=== PATIENT | female | born 1945 | race Caucasian/White ===

== ENCOUNTER 2016-04-16 11:09 | Observation (INO) | payer OTHER ==
[~2016-04-16] VITALS: Ht 157.5 cm; Wt 71.6 kg
[~2016-04-16 11:09] MED LIST: AMOX500C3 PO; ASPCH81X PO; CHOL100010 PO; DOFE125C PO; FURO-85 PO; LPR25 PO; LPT/20 PO; MNC100 PO; NTRGSL/4 PO; SERT50TA PO; WARF4TAB44 PO
[2016-04-16 12:02] LABS: HEMATOCRIT 43.7 % (37-47); MEAN CELL VOLUME 82.9 fL (80-100); MEAN CORPUSCULAR HEMOGLOBIN 28.3 pg (25-34); MEAN CORPUSCULAR HGB CONC 34.1 g/dl (32-36); MEAN PLATELET VOLUME 11.4 fL (7.4-10.4); PLATELET COUNT 356 K/uL (130-400); RED BLOOD COUNT 5.27 M/uL (4.2-5.4); WHITE BLOOD COUNT 9.59 K/uL (4.8-10.8)
[2016-04-16 12:09] LABS: ALT/SGPT 39 U/L (12-78); AST/SGOT 47 U/L (15-37); BLOOD UREA NITROGEN 9 mg/dl (7-18); CALCIUM 9.9 mg/dl (8.5-10.1); CARBON DIOXIDE 20 mmol/L (21-32); CHLORIDE 110 mmol/L (98-107); GLUCOSE 120 mg/dl (70-99); POTASSIUM 3.8 mmol/L (3.5-5.1); SODIUM 143 mmol/L (136-145)
[2016-04-16 12:13] LABS: ALB/GLOB RATIO 0.9 (0.9-2); ALKALINE PHOSPHATASE 102 U/L (45-117)
--- NOTE | 2016-04-16 12:23 | DIAGNOSTIC IMAGING REPORT ---
SINGLE VIEW CHEST CLINICAL HISTORY: Atypical chest pain. FINDINGS: An AP, portable, upright chest radiograph is compared to study dated 11/19/2015. The examination is degraded by portable technique, large body habitus, and patient rotation. The patient is status post midline sternotomy and cardiac valve surgeries. The heart is enlarged and there is atherosclerotic calcification of the thoracic and. Mild pulmonary vessel congestion is observed. No large pleural effusion is identified. There is bibasilar atelectasis. No pneumothorax is seen. The skeletal structures are osteopenic. The bony thorax is grossly intact. IMPRESSION: 1. Cardiomegaly with mild pulmonary vascular congestion. 2. Bibasilar atelectasis with no focal airspace consolidation or large pleural effusion identified. Electronically signed by: Madhu Norwood M.D. 04/16/2016 12:22 PM Dictated Date/Time: 04/16/2016 12:20 PM
[2016-04-16 12:30] LABS: PARTIAL THROMBOPLASTIN RATIO 2.1; PROTHROMBIN TIME (PATIENT) 48.1 SECONDS (9.0-12.0)
[2016-04-16] MEDS ORDERED: NITROGLYCERIN OINT 2% 1GM PACKET EXT ONE (12:30)
[2016-04-16 13:02] LABS: THYROID STIMULATING HORMONE 3.92 uIu/ml (0.300-4.500)
[2016-04-16 13:39] LABS: INR 4.2 (0.9-1.1)
[2016-04-16 13:55] VITALS: O2SAT 98; Ht 157.5 cm; Wt 71.6 kg
[2016-04-16] MEDS ORDERED: MULT-190 PO (13:56)
[2016-04-16] MEDS ORDERED: WARF1TAB PO (13:56)
[2016-04-16] MEDS ORDERED: ENOXAPARIN 40 MG/0.4 ML SYR SC SCH (14:00)
[2016-04-16] MEDS ORDERED: NITROGLYCERIN 0.4 MG SL PER TAB CHARGE SL PRN (14:00)
[2016-04-16] MEDS ORDERED: ONDANSETRON INJ 2 MG/ML 2 ML VIAL IV PRN (14:00)
[2016-04-16 14:11] VITALS: O2SAT 96
--- NOTE | 2016-04-16 14:35 | History and Physical ---
History & Physical Date & Time of Service: Apr 16, 2016 at 14:03 Chief Complaint: Heart Problems-Fast Pulse Primary Care Physician: Dillon Almeida D.O. History of Present Illness Source: patient This is a 70 y/o female with PMHx of PAF on Coumadin, h/o AVR and MVR, CAD s/p CABG, HTN, Dyslipidemia and other problems as outlined below who presents to the ED c/p palpitations that began yesterday. Pt reports that yesterday morning she woke up with palpitations. She checked her pulse which was noted to be irregular in the 130s. Sxs were assoc with chest "pressure" that radiated to the R shoulder. She also experienced SOB and lightheadedness/dizziness. Pt took a nitro for her chest "pressure" which relieved the discomfort. By the afternoon her sxs seemed to have resolved. This morning pt woke up with similar sxs however the heart rated was noted to be in the 170s and patient felt so dizzy she thought she might pass out. Due to her worsening sxs, patient decided to go to the ED for further evaluation. Pt has a history of PAF on Coumadin and states that she has an episode every 5-6 months. Last episode was November 2015. She also has a h/o CAD s/p CABG x 3 with concurrent AVR and MVR in 2002. She also mentions intermittent diarrhea over the past 3 weeks. She estimates she has approximately 5 episodes daily. She has been trying to follow the BRAT diet. Pt denies fever/chills, diaphoresis, abd pain, N/V, hematochezia, melena, bladder issues, LE edema, calf pain. In the ED, vitals are stable. Trop negative and EKG NSR with no acute ischemic changes. INR 4.2. Pt is currently feeling comfortable and has no complaints. She will be admitted for further evaluation and treatment. 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 Status: Chronic (9) Rheumatic heart disease Status: Resolved Surgical Problems: (1) H/O esophagogastroduodenoscopy Status: Chronic (2) Hx of appendectomy Status: Chronic (3) S/P AVR (aortic valve replacement) Permanent Comment: Mechanical 2002 Status: Chronic (4) S/P CABG (coronary artery bypass graft) Status: Chronic (5) S/P cholecystectomy Status: Chronic (6) S/P MVR (mitral valve replacement) Permanent Comment: Mechanical 2002 Status: Chronic (7) S/P NELLY (total abdominal hysterectomy) Status: Chronic Family History FH: cancer MOTHER (colon CA) Social History Smoking Status: Never Smoker Alcohol Use: none Drug Use: none Marital Status: Housing status: lives with significant other Occupational Status: retired Immunizations History of Influenza Vaccine: N/A Influenza Vaccine Date: Feb 19, 2012 History of Tetanus Vaccine?: UTD History of Pneumococcal: Yes Pneumococcal Date: Jan 19, 2011 History of Hepatitis B Vaccine: Unknown Allergies Coded Allergies: Latex (Verified Allergy, Severe, wheezing, 04/16/16) Levothyroxine (Unverified Allergy, Intermediate, TACHYCARDIA, 04/16/16) Sulfa Antibiotics (Verified Allergy, Intermediate, Rash, hives, 04/16/16) Home Medications Scheduled Aspirin (Aspirin Chewable), 81 MG PO DAILY Atorvastatin (Atorvastatin Calcium), 20 MG PO BID Dofetilide (Tikosyn), 125 MCG PO BID Furosemide (Lasix), 20 MG PO Q2D Metoprolol Tartrate (Lopressor), 25 MG PO DAILY Metoprolol Tartrate (Lopressor), 12.5 MG PO QPM Nitroglycerin (Nitrostat), 1 TAB PO DIRECTED Ocuvite Preservision (Ocuvite Preservision), 1 TAB PO DAILY Sertraline (Zoloft), 50 MG PO DAILY Warfarin Sodium (Coumadin), 3 MG PO 3XWK Scheduled PRN Amoxicillin (Amoxil), 500 MG PO UD PRN for PRIOR TO DENTAL APPTS Review of Systems Constitutional: No chills, No fatigue, No fever, No sweats, No weakness Eyes: No worsening of vision ENT: No hearing loss Respiratory: + shortness of breath, No cough Cardiovascular: + chest pain, + palpitations, No claudication, No edema Abdomen: + diarrhea, No GI bleeding, No constipation, No nausea, No pain, No vomiting Musculoskeletal: No calf pain, No swelling Genitourinary - Female: No dysuria Neurologic: No weakness Psychiatric: No depression symptoms Endocrine: No fatigue Hematologic / Lymphatic: No abnormal bleeding/bruising Integumentary: No new/changing skin lesions Physical Exam Vital Signs Date Time Temp Pulse Resp B/P Pulse Ox O2 Delivery O2 Flow Rate FiO2 04/16/16 12:23 78 18 128/79 98 Room Air 04/16/16 12:17 78 04/16/16 12:12 97 Room Air 04/16/16 12:08 97 Room Air 04/16/16 11:15 36.5 88 18 123/76 97 Room Air General Appearance: WD/WN, no apparent distress, + pertinent finding (Pt is sitting up in bed with at bedside ) Head: normocephalic, atraumatic Eyes: normal inspection ENT: hearing grossly normal Neck: supple Respiratory/Chest: chest non-tender, lungs clear, normal breath sounds, no respiratory distress Cardiovascular: regular rate, rhythm, no edema, no murmur Abdomen/GI: normal bowel sounds, non tender, soft Back: normal inspection Extremities/Musculoskelatal: normal inspection, no calf tenderness, no pedal edema Neurologic/Psych: alert, normal mood/affect, oriented x 3 Skin: normal color, warm/dry Diagnostics Laboratory Results Results Past 24 Hours Test 04/16/16 11:25 04/16/16 12:05 04/16/16 13:53 Range/Units White Blood Count 9.59 4.8-10.8 K/uL Red Blood Count 5.27 4.2-5.4 M/uL Hemoglobin 14.9 12.0-16.0 g/dL Hematocrit 43.7 37-47 % Mean Corpuscular Volume 82.9 80-100 fL Mean Corpuscular Hemoglobin 28.3 25-34 pg Mean Corpuscular Hemoglobin Concent 34.1 32-36 g/dl RDW Standard Deviation 47.7 36.4-46.3 fL RDW Coefficient of Variation 15.8 11.5-14.5 % Platelet Count 356 130-400 K/uL Mean Platelet Volume 11.4 7.4-10.4 fL Prothrombin Time 48.1 9.0-12.0 SECONDS Prothromb Time International Ratio 4.2 0.9-1.1 Activated Partial Thromboplast Time 55.8 21.0-31.0 SECONDS Partial Thromboplastin Ratio 2.1 Sodium Level 143 136-145 mmol/L Potassium Level 3.8 3.5-5.1 mmol/L Chloride Level 110 98-107 mmol/L Carbon Dioxide Level 20 21-32 mmol/L Anion Gap 13.0 3-11 mmol/L Blood Urea Nitrogen 9 7-18 mg/dl Creatinine 0.90 0.60-1.20 mg/dl Est Creatinine Clear Calc Drug Dose 55.3 ml/min Estimated GFR () 75.1 Estimated GFR (Non- 64.8 BUN/Creatinine Ratio 10.0 10-20 Random Glucose 120 70-99 mg/dl Calcium Level 9.9 8.5-10.1 mg/dl Magnesium Level 2.0 1.8-2.4 mg/dl Total Bilirubin 0.8 0.2-1 mg/dl Aspartate Amino Transf (AST/SGOT) 47 15-37 U/L Alanine Aminotransferase (ALT/SGPT) 39 12-78 U/L Alkaline Phosphatase 102 45-117 U/L Total Creatine Kinase 46 26-192 U/L Creatine Kinase MB < 0.5 0.5-3.6 ng/ml Creatine Kinase MB Ratio 0-3.0 Total Protein 8.9 6.4-8.2 gm/dl Albumin 4.1 3.4-5.0 gm/dl Globulin 4.8 2.5-4.0 gm/dl Albumin/Globulin Ratio 0.9 0.9-2 Thyroid Stimulating Hormone (TSH) 3.920 0.300-4.500 uIu/ml Free Thyroxine 1.25 0.80-1.60 ng/dl Bedside Troponin I 0.040 0-0.045 ng/ml Diagnostic Radiology CXR IMPRESSION: 1. Cardiomegaly with mild pulmonary vascular congestion. 2. Bibasilar atelectasis with no focal airspace consolidation or large pleural effusion identified. EKG EKG: NSR at [address] abnormality in inferior leads and Q wave sin V1-V3; no change when compared to KEG from 11/21/15 Impression Assessment and Plan CHEST PAIN R/O ACS pt presented with chest "pressure" assoc with palpitations and SOB; h/o CAD s/p CABG x 3 in 2002 -observation status to telemetry -likely secondary to demand ischemia from probable episode of AF with RVR this morning -RFs include CAD s/p CABG, HTN, Dyslipidemia -EKG NSR with no acute ischemic changes; repeat EKG PRN chest pain and in AM -Initial troponin 0.04; continue to monitor with serial cardiac enzymes q6h -obtain echo to r/o cardiac wall motion abnormalities -cont ASA, BB and statin -consult cardiology, Dr. Nath-pending input -pt is currently chest pain free -continue to monitor PALPITATIONS: RESOLVED; H/O PAF ON COUMADIN -likely episode of Afib with RVR; may have been caused by dehydration with recent h/o diarrhea; converted prior to arrival to ED -EKG: NSR -cont metoprolol and Tikosyn -holding Coumadin due to elevated INR; will continue to monitor -pt follows with cardiologyPritesh SUPRATHERAPEUTIC INR -INR 4.2 (goal 2.5-3.5) -hold Coumadin for now -monitor INR daily DIARRHEA -pt reports intermittent diarrhea for 3 weeks -obtain stool cx and C.diff -start gentle IVF -clear liquid diet H/O RHEUMATIC FEVER/AVR/MVR -goal INR 2.5-3.5; INR currently 4.2 -holding Coumadin for now due to supratherapeutic INR HTN -BP stable -cont metoprolol -monitor DYSLIPIDEMIA -cont statin H/O BROWNE CIRRHOSIS -follows with GI in [place] -LFTs WNL DVT PROPHYLAXIS -INR supratherapeutic; plan is to continue Coumadin once therapeutic CODE STATUS -FULL CODE per discussion with patient upon admission DISPO Observation status until further workup is complete. Pt seen in collaboration with Dr. Luna. Please see his addendum for further details. Thanks! Agree with above H and P. Briefly 70F presents with palpitations yesterday morning and today morning. She felt heart pounding when these episodes happened and says her heart rate was in 170's. Currently in sinus rhythm. Says she felt chest pressure, sob and dizzy when it happened. Also having watery diarrhea since 3 weeks 5-6 episodes every day.Afebrile.Currently resting comfortably and hemodynamically stable. p/e Ge not in distress Cvs s1 and s2 heard no murmurs Rs cta b/l no wheezing Abd soft bs present non tender n o distension Fluid Designer non focal Ext no erythema a/p Rapid afib currently in sinus continue home meds Coumadin on hold for inr 4.2 monitor in tele cardiology consulted chest pain mostly from above 'f/u serial CE and echo. diarrhea going on for few weeks' check c diff and cultures gentle fluids VTE Prophylaxis VTE Risk Assessment Done? Y/N: Yes Risk Level: Moderate
[2016-04-16] MEDS ORDERED: IV FLUIDS COMPLETED PRN (14:45)
[2016-04-16 16:07] VITALS: BP 147/83; PULSE 105; TEMP 36.6; O2SAT 95
[2016-04-16] MEDS: SODIUM CHLORIDE 0.9% 1000ML 1,000 ML IV SCH (16:30)
--- NOTE | 2016-04-16 19:18 | EMERGENCY ROOM VISIT NOTE ---
History Report prepared by Jolie: Nelli Bartlett Under the Supervision of: Dr. Tayo Jacobs M.D. First contact with patient: 12:13 Chief Complaint: TACHYCARDIA Stated Complaint: HEART PROBLEMS-FAST PULSE History of Present Illness The patient is a 70 year old female who presents to the Emergency Room with complaints of persistent tachycardia that started yesterday. The patient checked her heart rate electronically yesterday which was 138. 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 She states her blood pressure was 109/60 when she last checked it. Associated symptoms include right sided chest pain, light headedness , and shortness of breath. She also mentions that she has been experiencing diarrhea for the past week. She rates the discomfort in her chest a 6/10 in severity. The patient states that she took Nitroglycerin yesterday which offered relief of her chest pain. The patient takes Coumadin regularly. She denies hematochezia. Source of History: patient Onset: Yesterday Position: other (Cardiovascular System ) Symptom Intensity: heart rate in the 170s Quality: other (tachycardia) Timing: other (Persistent ) Modifying Factors (Worsening): other (None) Associated Symptoms: + SOB, + chest pain, + diarrhea, No hematochezia Review of Systems See HPI for pertinent positives & negatives. A total of 10 systems reviewed and were otherwise negative. 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 (11) Rheumatic heart disease Surgical Problems: (1) H/O esophagogastroduodenoscopy (2) Hx of appendectomy (3) S/P AVR (aortic valve replacement) (4) S/P CABG (coronary artery bypass graft) (5) S/P cholecystectomy (6) S/P MVR (mitral valve replacement) (7) S/P NELLY (total abdominal hysterectomy) Family History FH: cancer MOTHER (colon CA) Social History Smoking Status: Never Smoker Alcohol Use: none Drug Use: none Marital Status: Housing Status: lives with significant other Occupation Status: retired Current/Historical Medications Scheduled Aspirin (Aspirin Chewable), 81 MG PO DAILY Atorvastatin (Atorvastatin Calcium), 20 MG PO BID Dofetilide (Tikosyn), 125 MCG PO BID Furosemide (Lasix), 20 MG PO Q2D Metoprolol Tartrate (Lopressor), 25 MG PO DAILY Metoprolol Tartrate (Lopressor), 12.5 MG PO QPM Nitroglycerin (Nitrostat), 1 TAB PO DIRECTED Ocuvite Preservision (Ocuvite Preservision), 1 TAB PO DAILY Sertraline (Zoloft), 50 MG PO DAILY Warfarin Sodium (Coumadin), 3 MG PO 3XWK Scheduled PRN Amoxicillin (Amoxil), 500 MG PO UD PRN for PRIOR TO DENTAL APPTS Allergies Coded Allergies: Latex (Verified Allergy, Severe, wheezing, 04/16/16) Levothyroxine (Unverified Allergy, Intermediate, TACHYCARDIA, 04/16/16) Sulfa Antibiotics (Verified Allergy, Intermediate, Rash, hives, 04/16/16) Physical Exam Vital Signs Date Time Temp Pulse Resp B/P Pulse Ox O2 Delivery O2 Flow Rate FiO2 04/16/16 12:23 78 18 128/79 98 Room Air 04/16/16 12:17 78 04/16/16 12:12 97 Room Air 04/16/16 12:08 97 Room Air 04/16/16 11:15 36.5 88 18 123/76 97 Room Air Physical Exam Constitutional: Vital signs reviewed. Eyes: Pupils are equal round reactive to light. Conjunctiva are noninjected. ENT: Pharynx is clear without erythema or exudate. Mucous membranes are moist. Neck supple without meningeal signs. Respiratory: Clear to auscultation bilaterally. Breath sounds are equal bilaterally. Cardiovascular: Regular rate and rhythm. No rubs or gallops. GI: Soft, nondistended and nontender. Bowel sounds are present. Musculoskeletal: No peripheral edema. No lower extremity tenderness. Integumentary: No cyanosis. Neurological: The patient is awake and alert. No focal deficits. Psychiatric: Normal affect. Medical Decision & Procedures ER Provider Diagnostic Interpretation: X-ray results as stated below per interpretation by me and the radiologist: SINGLE VIEW CHEST CLINICAL HISTORY: Atypical chest pain. FINDINGS: An AP, portable, upright chest radiograph is compared to study dated 11/19/2015. The examination is degraded by portable technique, large body habitus, and patient rotation. The patient is status post midline sternotomy and cardiac valve surgeries. The heart is enlarged and there is atherosclerotic calcification of the thoracic and. Mild pulmonary vessel congestion is observed. No large pleural effusion is identified. There is bibasilar atelectasis. No pneumothorax is seen. The skeletal structures are osteopenic. The bony thorax is grossly intact. IMPRESSION: 1. Cardiomegaly with mild pulmonary vascular congestion. 2. Bibasilar atelectasis with no focal airspace consolidation or large pleural effusion identified. Electronically signed by: Madhu Norwood M.D. 04/16/2016 12:22 PM Dictated Date/Time: 04/16/2016 12:20 PM Laboratory Results 04/16/16 11:25 04/16/16 11:25 Test 04/16/16 11:25 04/16/16 12:05 Red Blood Count 5.27 M/uL (4.2-5.4) Mean Corpuscular Volume 82.9 fL (80-100) Mean Corpuscular Hemoglobin 28.3 pg (25-34) Mean Corpuscular Hemoglobin Concent 34.1 g/dl (32-36) RDW Standard Deviation 47.7 fL (36.4-46.3) RDW Coefficient of Variation 15.8 % (11.5-14.5) Mean Platelet Volume 11.4 fL (7.4-10.4) Prothrombin Time 48.1 SECONDS (9.0-12.0) Prothromb Time International Ratio 4.2 (0.9-1.1) Activated Partial Thromboplast Time 55.8 SECONDS (21.0-31.0) Partial Thromboplastin Ratio 2.1 Anion Gap 13.0 mmol/L (3-11) Est Creatinine Clear Calc Drug Dose 55.3 ml/min Estimated GFR () 75.1 Estimated GFR (Non- 64.8 BUN/Creatinine Ratio 10.0 (10-20) Calcium Level 9.9 mg/dl (8.5-10.1) Magnesium Level 2.0 mg/dl (1.8-2.4) Total Bilirubin 0.8 mg/dl (0.2-1) Aspartate Amino Transf (AST/SGOT) 47 U/L (15-37) Alanine Aminotransferase (ALT/SGPT) 39 U/L (12-78) Alkaline Phosphatase 102 U/L (45-117) Total Creatine Kinase 46 U/L (26-192) Total Protein 8.9 gm/dl (6.4-8.2) Albumin 4.1 gm/dl (3.4-5.0) Globulin 4.8 gm/dl (2.5-4.0) Albumin/Globulin Ratio 0.9 (0.9-2) Thyroid Stimulating Hormone (TSH) 3.920 uIu/ml (0.300-4.500) Free Thyroxine 1.25 ng/dl (0.80-1.60) Bedside Troponin I 0.040 ng/ml (0-0.045) Laboratory results as reviewed by me. Medications Administered Medications (Trade) Dose Ordered Sig/Maricarmen Route Start Time Stop Time Status Last Admin Dose Admin Nitroglycerin (Nitroglycerin 2% Oint) 0.5 inch NOW ONCE EXT 04/16/16 12:30 04/16/16 12:31 DC 04/16/16 12:29 0.5 INCH ECG Indication: tachycardia Rate (beats per minute): 80 Rhythm: normal sinus Findings: nonspecific-ST abn (Inferior laterally ), Q waves (V1 and V2) Comparison ECG Date: 21 November 2015 Change: no significant change ED Course 1217: The patient was evaluated in room C4. A complete history and physical exam was performed. 1230: Ordered Nitroglycerin 0.5 inch EXT. 1258: I spoke with Demi Hunt (BRETT). We discussed the patient and her results. She evaluate the patient for further management and care. 1300: I reassessed the patient and updated her on the treatment plan. Her chest pain is completely resolved with Nitro. Medical Decision This is a 70-year-old female presents with chest pain and tachycardia. Differential diagnosis includes dysrhythmia, atrial fibrillation, SVT, electrolyte abnormality, metabolic derangement, unstable angina, ME. I did perform a limited focused review of portions of the patient's old chart on the electronic medical record. The patient was evaluated with A flutter in October of last year. She has a history of Atrial Fibrillation and Atrial Flutter. I did evaluate the patient as noted above. The patient is presenting with 2 episodes of tachycardia, once yesterday morning and once this morning. Her tachycardia has resolved and she is in normal sinus rhythm. She also states she has been having chest pain with the tachycardia. Yesterday she took a nitroglycerin which relieved her chest pain. Currently she is still having chest pain which started this morning. She describes it as a tightness. IV access was established. 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 I did treat her with nitroglycerin paste to the anterior chest wall. I did order and personally review the patient's 12-lead EKG and chest x-ray as described above. I did order and review the patient's blood work as noted in the electronic medical record. Her troponin is negative. I did reassess patient. Her chest pain is completely resolved. I did recommend hospitalization for repeat cardiac enzymes and further evaluation. I did discuss the case with the hospitalist and oil field caser. Consults Time Called: 1250 Consulting Physician: Demi Hunt (BRETT) Returned Call: [phone] I spoke with Demi Hunt (BRETT). We discussed the patient and her results. She evaluate the patient for further management and care. Impression Primary Impression: Precordial chest pain Additional Impressions: Palpitations History of atrial fibrillation Supratherapeutic INR Scribe Attestation The scribe's documentation has been prepared under my direct and personally reviewed by me in its entirety. I confirm that the note above accurately reflects all work, treatment, procedures, and medical decision making performed by me. Departure Information Dispostion Being Evaluated By Hospitalist Referrals Rema Livingston M.D. (PCP) Patient Instructions My [facility] Problem Qualifiers
[2016-04-16] MEDS: ACETAMINOPHEN 325 MG TAB PO PRN (19:46)
[2016-04-16 19:47] VITALS: BP 129/72; PULSE 79; TEMP 36.5; O2SAT 97
[2016-04-16] MEDS: DOFETILIDE 125 MCG CAP PO SCH (20:43)
[2016-04-16] MEDS ORDERED: ATORVASTATIN 20 MG TAB PO SCH (21:00)
[2016-04-16] MEDS ORDERED: METOPROLOL TARTRATE 25 MG TAB PO SCH (21:00)
[2016-04-16 23:55] VITALS: BP 99/64; PULSE 68; TEMP 36.8; O2SAT 97
[2016-04-17] VITALS (11 sets, daily range): BP systolic 92–145; BP diastolic 57–77; PULSE 65–86; TEMP 36.3–37.1; O2SAT 95–99
[2016-04-17 06:52] LABS: HEMATOCRIT 38.6 % (37-47); MEAN CELL VOLUME 81.8 fL (80-100); MEAN CORPUSCULAR HEMOGLOBIN 27.3 pg (25-34); MEAN CORPUSCULAR HGB CONC 33.4 g/dl (32-36); MEAN PLATELET VOLUME 10.7 fL (7.4-10.4); PLATELET COUNT 280 K/uL (130-400); RED BLOOD COUNT 4.72 M/uL (4.2-5.4); WHITE BLOOD COUNT 7.35 K/uL (4.8-10.8)
[2016-04-17 06:58] LABS: INR 3.1 (0.9-1.1); PROTHROMBIN TIME (PATIENT) 34.6 SECONDS (9.0-12.0)
[2016-04-17 07:12] LABS: BUN/CREATININE RATIO 15.4 (10-20); CALCIUM 9.1 mg/dl (8.5-10.1); CREATININE 0.71 mg/dl (0.60-1.20); POTASSIUM 3.7 mmol/L (3.5-5.1)
[2016-04-17] MEDS: ASPIRIN 81 MG ECTAB PO SCH (07:49)
[2016-04-17] MEDS: SERTRALINE HCL 50 MG TAB PO SCH (07:50)
[2016-04-17] MEDS: DOFETILIDE 125 MCG CAP PO SCH ×2 (07:51→20:46)
[2016-04-17] MEDS: CEROVITE ADV FORMULA TAB PO SCH (07:51)
[2016-04-17] MEDS ORDERED: PROPOFOL IV EMULSION 10 MG/ML 20 ML VIAL IV ONE (08:26)
--- NOTE | 2016-04-17 08:28 | CARDIOLOGY CONSULTATION ---
DATE OF CONSULTATION: 04/17/2016 DATE OF CONSULTATION: 04/17/2016. HISTORY OF PRESENT ILLNESS: Sharee Diana is a 70-year-old female seen in cardiology consultation per the request of Demi Hunt PA-C for evaluation of tachycardia and chest discomfort. The patient is well known to the undersigned as I have followed her for the last several years on both inpatient and outpatient basis. She has a history of underlying rheumatic heart disease for which she initially underwent mechanical aortic valve replacement and mechanical mitral valve replacement as well as CABG x3 in 2002 at [facility]. 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 on 01/08/2012 with significant 1-vessel CAD, a 70% mid LAD and 2 of 3 of her bypasses were patent. She had an obstruction of the SVG to diagonal, and it was felt that this could be treated medically. She therefore underwent redo mechanical aortic valve replacement on 12/24/2012 at [facility]. She has a longstanding history of complicated atrial arrhythmias including recurrent atrial fibrillation and atrial flutter. She had undergone direct current cardioversion in 2010 at [facility]. She subsequently had intolerance to sotalol with nauseousness and bradycardia. She was treated with Tikosyn with repeat direct current cardioversion in 2011. Tikosyn was ultimately effective but discontinued at the time of her aortic valve replacement in 2012 and she was transitioned to amiodarone postoperatively. Amiodarone was ultimately discontinued in 2014 per patient request due to nauseousness. She had been readmitted to [facility] May 2015 with symptomatic atrial flutter. Tikosyn was reinitiated at a dose of 125 mg b.i.d. with spontaneous conversion. She had most recently been admitted in November 2015 with recurrent atrial flutter with rapid ventricular rate. Her metoprolol dose was increased to metoprolol tartrate 25 mg daily in a.m. and 12.5 mg in p.m. Her Tikosyn dose was continued at 125 b.i.d. The dose of Tikosyn was limited due to mild QT interval prolongation. She had since been seen in followup by electrophysiology as an outpatient at [facility] and it was determined to continue her current medication regimen. Her history of mechanical aortic valves makes ablation therapy technically complex. The patient states that she was in her normal state of health up until recently. She recently had an outpatient general cardiology follow-up visit and states that she was feeling better than what she had in a long time. She then noted that she woke up on Thursday morning, 4 days ago with an elevated heart rate and associated lightheadedness. With rest her heart rates improved. She has been monitoring her heart rates with her home blood pressure machine and she noted that with minimal exertion her heart rate would increase to 160-178 beat per minute range. On Thursday this occurred again. Yesterday, it occurred again with symptoms including lightheadedness, sensation of heart racing, and associated chest pressure. She presented to the Emergency Room after calling our office for advice. By the time she arrived to the Emergency Room, her heart rate was down to the 70-80 beat per minute range at rest, however, EKG once again revealed atrial flutter with 2:1 AV conduction. Last night on telemetry continued atrial flutter with variable conduction was noted. It was noted that when she got up and had minimal activity such as walking to the bathroom. Her heart rates increased to 178 beat per minute range. She feels well this morning. She has not had anything to eat yet. She denies any chest pressure at rest and she feels very well at present. At rest she feels as though she may be back in rhythm, however on telemetry it is obviously not the case. Blood work was performed overnight and a mild troponin elevation was noted with levels of 0.047 and 0.049 overnight last night with last reading at 12:51 a.m. on 02/14/2017. Her chemistry panel this morning stable with a potassium of 3.7. Electrolytes are otherwise stable. Her INR is within the therapeutic range at 3.1 and was 4.2 yesterday. Recent outpatient INR levels were reviewed. On 01/30/2016 the INR was 2.0, on 02/27/2016 it was 2.1, on 03/20/2016 it was 2.0, and on 04/09/2016 it was 4.2. The patient notes no recent discontinuation in her anticoagulation. She has been on a routine dose since October. Comprehensive review of systems is negative with the exception that she did have a flu-like illness several weeks ago which has since resolved and she has no residual cardiopulmonary complaints other than that noted above. PAST MEDICAL AND SURGICAL HISTORY: As noted above: In addition, she has stage III chronic kidney disease, hypertension, multinodular nontoxic goiter. In August 2015 she underwent a biopsy of her thyroid that was negative for malignancy. She has nonalcoholic steatohepatitis, history of partial thyroidectomy, total hysterectomy, cholecystectomy, hemorrhoidectomy, appendectomy. FAMILY HISTORY: Mother with colon cancer. SOCIAL HISTORY: Nonsmoker, no chronic alcohol use, she is , she is retired. ALLERGIES: LATEX, LEVOTHYROXINE, SULFA DRUGS. MEDICATIONS: Her medications were reviewed in the electronic record. PHYSICAL EXAMINATION: VITAL SIGNS: Temperature 36.6, heart rate 61, respiratory rate 20, pulse oximetry 96% on room air. GENERAL APPEARANCE: Awake and oriented x3, no acute distress. HEAD, EYES, EARS, NOSE, AND THROAT: Extraocular muscles were intact. Pupils equal and reactive to light. NECK EXAMINATION: No bruits. No cervical lymphadenopathy. CARDIOVASCULAR EXAMINATION: Regular rate at present, no tachycardia at rest in bed. Her prosthetic heart sounds can be heard well. EXTREMITIES: No edema. ABDOMEN: Soft, nontender. NEUROLOGIC: No focal deficits. DIAGNOSTIC DATA: EKG performed 04/16/2016 at 11:23 a.m. revealed atrial tachycardia versus atrial flutter with 2:1 conduction and ventricular rate of 80 beats per minute. Diffuse nonspecific ST abnormality. Compared to prior tracings, the ST changes are chronic. The current EKG pattern is similar to that which was considered to be her flutter during her past admission in October. Most recent echocardiogram had been performed on 11/20/2015 with no significant changes noted compared to May 2015. Normal left ventricular chamber size and wall thickness was noted. The left ventricular ejection fraction was normal at 65-70%. No segmental wall motion abnormalities were noted. Grade 3 diastolic dysfunction was noted. Stable mechanical aortic valve and mitral valve function and Doppler without significant stenosis or regurgitation. 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 This is a chronic finding as well. FINAL IMPRESSION: A 70-year-old female: 1. Symptomatic recurrent atrial flutter. Symptoms of lightheadedness, dizziness, sensation of racing heart, and chest pressure were associated with elevated ventricular rates, she has reproduced this while in the hospital with ventricular rates as high as 160-170 beats per minute on telemetry last evening at 2100 hours. 2. History of rheumatic heart disease with mechanical mitral valve, mechanical aortic valve. Surgical history as outlined above. 3. History of chronic ischemic heart disease with previous coronary artery bypass graft, coronary anatomy as noted above. DISCUSSION AND RECOMMENDATIONS: The patient does have underlying coronary artery disease but angina has not been much of an issue over the last few years. Her issues have mostly been related to her valve disease as well as her recurrent atrial arrhythmias. Her current dose of Dofetilide has been limited due to chronic QT interval elevation. Her most recent QT interval on the EKG from yesterday was 502 milliseconds, which is stable compared to her prior tracing. Amiodarone had been discontinued due to nauseousness in the past. Sotalol had been discontinued due to nauseousness and the dose was also limited by relative bradycardia in the past. At this time, recommend direct current cardioversion. The patient has been n.p.o. since her evening meal and therefore has been n.p.o. for greater than 12 hours. Her INR has been therapeutic for an interval dating back to January 2016. The patient is agreeable to proceeding with the procedure and informed consent was obtained. LORENA
--- NOTE | 2016-04-17 08:38 | Anesthesiology Progress Note ---
Anesthesia Post Op Note Date & Time Apr 17, 2016 at 08:38 Vital Signs Pain Intensity: 0 Vital Signs Past 12 Hours Date Time Temp Pulse Resp B/P Pulse Ox O2 Delivery O2 Flow Rate FiO2 04/17/16 08:21 36.5 84 18 136/71 99 4 04/17/16 07:42 36.5 86 16 92/71 96 Room Air 04/17/16 04:38 36.6 75 20 102/67 97 Room Air 04/17/16 04:00 Room Air 04/17/16 00:27 Room Air 04/16/16 23:55 36.8 68 16 99/64 97 2.0 Notes Mental Status: alert / awake / arousable, participated in evaluation Pt Amnestic to Procedure: Yes Nausea / Vomiting: adequately controlled Pain: adequately controlled Airway Patency, RR, SpO2: stable & adequate BP & HR: stable & adequate Hydration State: stable & adequate Anesthetic Complications: no major complications apparent
--- NOTE | 2016-04-17 08:43 | Cardiology Procedure Brief Nt ---
Preliminary Cardiology Note Procedure Date Apr 17, 2016. Pre-Procedure Diagnosis Symptomatic atrial flutter Post-Procedure Diagnosis successful conversion to sinus rhythm Procedure(s) Performed [facility] Dye Winch Operator Selma Almeida DO Director Heart(s) not applicable Estimated Blood Loss none Preliminary Findings Successful conversion to SR with one dose of 200 J of biphasic energy. EKG performed post procedure confirmed presence of SR with first degree AV block. Recommendations Increase metoprolol tartrate to 25 mg BID. Continue other medications including coumadin and Tikosyn at same doses. Stable to be discharged after lunch if she remains in SR and feels well. Outpt cardiology follow up with Dr Almeida or Mr Jonas in 2-4 weeks. Anesthesia Propofol 60 mg as administered by anesthesia Complication(s) None Disposition Telemetry 2 N
[2016-04-17] MEDS ORDERED: FUROSEMIDE 20 MG TAB PO SCH (09:00)
[2016-04-17] MEDS ORDERED: METOPROLOL TARTRATE 25 MG TAB PO SCH (09:00)
--- NOTE | 2016-04-17 09:48 | CARDIOVERSION ---
DATE OF OPERATION: 04/17/2016 DIRECT CURRENT CARDIOVERSION NOTE DATE OF PROCEDURE: 04/17/2016. PREPROCEDURE DIAGNOSIS: Symptomatic atrial flutter. POSTPROCEDURE DIAGNOSIS: Successful conversion to sinus rhythm. PROCEDURE PERFORMED: Direct current cardioversion with sedation provided by anesthesia. UNDERCOATER: Dr. Dillon Almeida DO. PLASTIC INSTALLER: Not applicable. PROCEDURE: After informed consent was obtained and a time-out was performed the patient was sedated with the assistance of Dr. Robin of anesthesia receiving a total of 60 mg of propofol intravenously. The patient then underwent direct current cardioversion with successful conversion from atrial flutter to sinus rhythm with first degree AV block receiving 200 joules of synchronized biphasic energy. An EKG had been performed immediately before the procedure and confirmed the presence of atrial flutter with 2:1 AV block. Postprocedure EKG confirmed the presence of sinus rhythm. The patient tolerated the procedure well. Vital signs remained stable. No complications were observed. RECOMMENDATIONS: 1. The patient's outpatient metoprolol tartrate dose is to be increased from 25 mg in the a.m. and 12.5 mg in the p.m. to 25 mg 2 times per day. 2. Continue other medications at their current doses including her current Coumadin dose and current Tikosyn dose which is 125 mg b.i.d. 3. The patient's diet is to be advanced after her gag reflux returns and if she tolerates her a.m. meal she is to be reassessed later this morning by Dr. Olmstead of the hospitalist service and if she remains in sinus rhythm and feels well she can be discharged on the new dose of metoprolol. DISPOSITION: Plan for outpatient cardiology followup with Dr. Almeida or Mr. Jonas of our practice in 2-4 weeks. I will contact the office to make these arrangement. I attest to the content of the Intraoperative Record and any orders documented therein. Any exceptions are noted below. MTDD
[2016-04-17] MEDS: METOPROLOL TARTRATE 25 MG TAB PO SCH ×2 (10:02→20:46)
[2016-04-17] MEDS ORDERED: PERFLUTREN LIPID MICROSPHERE (DEFINITY) IV ONE (11:12)
[2016-04-17] MEDS: SODIUM CHLORIDE 0.9% 1000ML 1,000 ML IV SCH (12:07)
--- NOTE | 2016-04-17 13:37 | ECHOCARDIOGRAM REPORT ---
*NOTICE TO RECEIVING REPUBLICAN AGENCY This information is strictly Confidential and protected under [place] law. [place] law prohibits you from making any further disclosure of this information unless further disclosure is expressly permitted by the written consent of the person to whom it pertains or is authorized by law. A general authorization for the release of medical or other information is not sufficient for this purpose. Hospital accepts no responsibility if the information is made available to any other person, INCLUDING THE PATIENT. Interpretation Summary * Name: TATUM SOSA Study Date: 04/17/2016 10:49 AM BP: 123/76 mmHg * Patient Location: [facility]\S\N285\S\1 HR: 78 * : 1945 (M/d/yyyy) Gender: Female Height: 62 in * Age: 70 yrs Ethnicity: CA Weight: 166 lb * Ordering Physician: Demi Hunt * Performed By: Ivy Rodriguez * * Reason For Study: CHEST PAIN * BSA: 1.8 m2 * History: AVR, MVR, CABG X3. * The study was technically limited. * -- Conclusions -- * The study was technically limited. * There is a bi-leaflet (St[employer] Cresencio) aortic mechanical prosthesis. * The gradient is normal for this prosthetic aortic valve. 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 * There is a bi-leaflet ([employer]) mechanical prosthesis in the mitral position.. * The prosthetic mitral valve appears to open well. * The left ventricle is normal in size. * Left ventricular systolic function is normal. * Ejection Fraction = 65-70%. * The right heart is not well visualized. Procedure Details * A complete two-dimensional transthoracic echocardiogram was performed (2D, M-mode, Doppler and color flow Doppler). * A contrast injection of Definity was performed to improve assessment of LV function. * Contrast was injected into an intravenous site in the left arm. * One vial of Definity ultrasound contrast was diluted in normal saline to a total volume of 10 ml. A total of '3' ml of solution was administered during imaging. * Lot # [id number] of Definity utilized for procedure. * Expiration date 04/19. * The attending nurse who injected the contrast agent was DEVIN PINK RN. Left Ventricle * The left ventricle is normal in size. * There is normal left ventricular wall thickness. * Ejection Fraction = 65-70%. * Left ventricular systolic function is normal. * The left ventricular wall motion is normal. Right Ventricle * The right ventricle is not well visualized. Atria * The left atrium is not well visualized. * Right atrium not well visualized. Mitral Valve * There is a bi-leaflet ([employer] Cresencio) mechanical prosthesis. * The prosthetic mitral valve appears to open well. Tricuspid Valve * The tricuspid valve is not well visualized. 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 * There is a bi-leaflet ([employer] Cresencio) aortic mechanical prosthesis. * The gradient is normal for this prosthetic aortic valve. Pulmonic Valve * The pulmonic valve is not well visualized. Great Vessels * The aortic root and proximal ascending aorta are normal sized. Pericardium/Pleural * There is no pericardial effusion. MMode 2D Measurements and Calculations IVSd 0.96 cm IVSs 1.5 cm LVIDd 4.4 cm LVIDs 2.8 cm LVPWd 1.3 cm LVPWs 1.4 cm IVS/LVPW 0.73 FS 37.6 % EDV(Teich) 89.1 ml ESV(Teich) 28.6 ml EF(Teich) 67.9 % EDV(cubed) 86.9 ml ESV(cubed) 21.1 ml EF(cubed) 75.7 % % IVS thick 59.7 % % LVPW thick 10.0 % LV mass(C)d 178.9 grams LV mass(C)dI 101.3 grams/m\S\2 LV mass(C)s 140.3 grams LV mass(C)sI 79.5 grams/m\S\2 CO(Teich) 4.1 l/min CI(Teich) 2.3 l/min/m\S\2 SV(Teich) 60.5 ml SI(Teich) 34.3 ml/m\S\2 CO(cubed) 4.5 l/min CI(cubed) 2.5 l/min/m\S\2 SV(cubed) 65.8 ml SI(cubed) 37.3 ml/m\S\2 asc Aorta Diam 2.8 cm LVOT diam 1.2 cm LVOT area 1.1 cm\S\2 LVAd ap4 28.9 cm\S\2 LVLd ap4 7.8 cm EDV(MOD-sp4) 91.0 ml LVAs ap4 14.4 cm\S\2 LVLs ap4 6.2 cm ESV(MOD-sp4) 28.0 ml EF(MOD-sp4) 69.2 % LVAd ap2 24.3 cm\S\2 LVLd ap2 7.8 cm EDV(MOD-sp2) 63.0 ml LVAs ap2 12.9 cm\S\2 LVLs ap2 6.5 cm ESV(MOD-sp2) 22.0 ml EF(MOD-sp2) 65.1 % CO(MOD-sp4) 4.3 l/min CI(MOD-sp4) 2.4 l/min/m\S\2 SV(MOD-sp4) 63.0 ml SI(MOD-sp4) 35.7 ml/m\S\2 CO(MOD-sp2) 2.8 l/min CI(MOD-sp2) 1.6 l/min/m\S\2 SV(MOD-sp2) 41.0 ml SI(MOD-sp2) 23.2 ml/m\S\2 Doppler Measurements and Calculations MV E max sophia 128.8 cm/sec MV dec time 0.25 sec Ao V2 max 219.4 cm/sec Ao max PG 19.3 mmHg Ao max PG (full) 17.3 mmHg Ao V2 mean 150.1 cm/sec Ao mean PG 10.5 mmHg Ao mean PG (full) 9.5 mmHg Ao V2 VTI 53.4 cm JONI(I,A) 0.34 cm\S\2 JONI(I,D) 0.34 cm\S\2 JONI(V,A) 0.36 cm\S\2 JONI(V,D) 0.36 cm\S\2 LV V1 max PG 1.9 mmHg LV V1 mean PG 1.0 mmHg LV V1 max 69.7 cm/sec LV V1 mean 47.0 cm/sec LV V1 VTI 16.2 cm SV(LVOT) 18.2 ml SI(LVOT) 10.3 ml/m\S\2 PA V2 max 65.4 cm/sec PA max PG 1.7 mmHg TR max sophia 256.4 cm/sec
[2016-04-17] MEDS ORDERED: WARFARIN SOD 4 MG TAB PO SCH (16:00)
[2016-04-17] MEDS: ACETAMINOPHEN 325 MG TAB PO PRN (16:01)
--- NOTE | 2016-04-17 17:57 | Progress Note ---
Medicine Progress Note Date & Time of Visit: Apr 17, 2016 at 17:46. Subjective patient seen resting in bed, having dinner s/p cardioversion today, remains in sinus rhythm, HR 60s denies chest pain, palpitations, dizziness reports persistence of diarrhea- had at least 4-5 episodes of loose BM today, non bloody, associated with lower abdominal cramping no fever/chils denies other symptoms Objective Last 8 Hrs Date Time Temp Pulse Resp B/P Pulse Ox O2 Delivery O2 Flow Rate FiO2 04/17/16 17:14 37.1 75 16 120/57 96 Room Air 04/17/16 16:00 Room Air 04/17/16 12:21 36.3 65 18 105/67 97 Room Air 04/17/16 12:00 Room Air 04/17/16 11:11 Room Air 04/17/16 10:15 36.6 68 16 125/76 97 Room Air Physical Exam: General- oriented x 3, not in distress, speaks in sentences with no effort Eyes- anicteric ENT- oropharynx clear Neck- supple, no JVD Lungs- clear to auscultation bilaterally Heart- normal rate, regular rhythm; no murmurs Abdomen- (+) hyperactive bowel sounds, non distended, soft, non tender Extremities- no pretibial edema, no calf tenderness Neuro- alert, oriented x 3;no gross focal deficits Skin- warm & dry Laboratory Results: Last 24 Hours Test 04/16/16 18:00 04/16/16 18:05 04/17/16 00:51 04/17/16 06:36 Creatine Kinase MB Ratio Creatine Kinase MB < 0.5 ng/ml Troponin I 0.047 ng/ml 0.049 ng/ml White Blood Count 7.35 K/uL Red Blood Count 4.72 M/uL Hemoglobin 12.9 g/dL Hematocrit 38.6 % Mean Corpuscular Volume 81.8 fL Mean Corpuscular Hemoglobin 27.3 pg Mean Corpuscular Hemoglobin Concent 33.4 g/dl RDW Standard Deviation 47.8 fL RDW Coefficient of Variation 15.9 % Platelet Count 280 K/uL Mean Platelet Volume 10.7 fL Prothrombin Time 34.6 SECONDS Prothromb Time International Ratio 3.1 Sodium Level 144 mmol/L Potassium Level 3.7 mmol/L Chloride Level 110 mmol/L Carbon Dioxide Level 22 mmol/L Anion Gap 12.0 mmol/L Blood Urea Nitrogen 11 mg/dl Creatinine 0.71 mg/dl Est Creatinine Clear Calc Drug Dose 69.8 ml/min Estimated GFR () 100.0 Estimated GFR (Non- 86.3 BUN/Creatinine Ratio 15.4 Random Glucose 119 mg/dl Calcium Level 9.1 mg/dl Test 04/17/16 17:36 Date/Time Source Procedure Growth Status 04/17/16 12:30 Stool C.difficile Toxin B Gene (PCR) - Final No C. difficile toxin B gene detected Complete 04/17/16 12:30 Stool Shiga Toxin Test Pending Received 04/17/16 12:30 Stool Stool Culture Pending Received Assessment & Plan 70 year old female with history of Paroxysmal A fib, Mitral and Aortic Valve Replacement on Coumadin, presenting with chest pain CHEST PAIN LIKELY FROM A FIB WITH RVR - s/p Cardioversion today remains in NSR - echo noted - Metoprolol increased to 25mg BID continue coumadin -cont Tikosyn, ASA hold statin until diarrhea improves - appreciate Dr. Almeida's input SUPRATHERAPEUTIC INR -INR 3.1 (goal 2.5-3.5) - resume coumadin at 3mg po daily -monitor INR daily DIARRHEA - still has persistent diarrhea c diff test: negative stool cultures: pending - empiric Zosyn (has prolonged qt, will avoid cipro) IV fluids Imodium PRN clear liquids H/O RHEUMATIC FEVER/AVR/MVR - echo noted -INR 3.1 (goal 2.5-3.5) - resume coumadin at 3mg po daily -monitor INR daily HTN -BP stable -cont metoprolol -monitor DYSLIPIDEMIA - hold statin until diarrhea improves H/O BROWNE CIRRHOSIS -follows with GI in [place] -LFTs WNL DVT PROPHYLAXIS - coumadin CODE STATUS -FULL CODE per discussion with patient upon admission DISPO pending management of diarrhea as noted above anticipate discharge home with home health when medically stable Current Inpatient Medications: Current Inpatient Medications Medications (Trade) Dose Ordered Sig/Maricarmen Route Start Time Stop Time Status Last Admin Dose Admin Acetaminophen (Tylenol Tab) 650 mg Q4H PRN PO 04/16/16 14:00 05/16/16 13:59 04/17/16 16:01 650 MG Nitroglycerin (Nitrostat Tab) 0.4 mg UD PRN SL 04/16/16 14:00 05/16/16 13:59 Aspirin (Ecotrin Tab) 81 mg DAILY PO 04/17/16 09:00 05/17/16 08:59 04/17/16 07:49 81 MG Atorvastatin Calcium (Lipitor Tab) 20 mg HS PO 04/16/16 21:00 05/16/16 20:59 04/16/16 20:43 20 MG Multivitamins/ Minerals (Multivitamin W/ Minerals Tab) 1 tab DAILY PO 04/17/16 09:00 05/17/16 08:59 04/17/16 07:51 1 TAB Sertraline HCl (Zoloft Tab) 50 mg DAILY PO 04/17/16 09:00 05/17/16 08:59 04/17/16 07:50 50 MG Warfarin Sodium (Coumadin Tab) 3 mg MoWeFr@1600 PO 04/18/16 16:00 05/18/16 15:59 Future Hold Dofetilide (Tikosyn) 125 mcg BID PO 04/16/16 21:00 05/16/16 20:59 04/17/16 07:51 125 MCG Miscellaneous 1 ea 1 ea PRN PRN N/A 04/16/16 14:45 04/16/17 14:44 Sodium Chloride (Nss 1000ml) 1,000 ml @ 80 mls/hr [id number] IV 04/16/16 14:45 04/17/16 12:07 50 MLS/HR Warfarin Sodium (Coumadin Tab) 4 mg [id number]@1600 PO 04/17/16 16:00 05/17/16 15:59 Future Hold Metoprolol Tartrate (Lopressor Tab) 25 mg BID PO 04/17/16 09:00 05/17/16 08:59 04/17/16 10:02 25 MG Miscellaneous Information (Pharmacy Consult) 1 ea NOW STAT N/A 04/17/16 17:36 04/17/16 17:37 UNV
[2016-04-17] MEDS ORDERED: PIPERACILL/TAZOBAC CONSULT ACTIVE PRN (18:30)
[2016-04-17] MEDS ORDERED: WARFARIN SOD 3 MG TAB PO ONE (19:00)
[2016-04-17] MEDS ORDERED: PIPERACILL/TAZOBAC IV 3.375 GM in DEXTROSE 5% 100ML IV ONE (19:00)
[2016-04-17] MEDS: LOPERAMIDE HCL 2 MG CAP PO PRN (19:05)
[2016-04-17 19:59] LABS: URINE APPEARANCE CLEAR (CLEAR); URINE BILIRUBIN NEG (NEG); URINE COLOR YELLOW; URINE EPITHELIAL CELL AUTO 20-30 /lpf (0-5); URINE NITRITE NEG (NEG); URINE SPECIFIC GRAVITY 1.002 (1.000-1.030); UROBILINOGEN NEG (NEG)
[2016-04-17 20:00] LABS: MANUAL MICROSCOPIC REQUIRED? NO; REVIEW REQ? NO
[2016-04-18 00:02] VITALS: BP 100/56; PULSE 64; TEMP 36.6; O2SAT 98
[2016-04-18] MEDS: PIPERACILL/TAZOBAC IV 3.375 GM in DEXTROSE 5% 100ML IV SCH ×2 (01:00→08:33)
[2016-04-18] MEDS: SODIUM CHLORIDE 0.9% 1000ML 1,000 ML IV SCH (01:47)
[2016-04-18 05:08] VITALS: BP 125/80; PULSE 62; TEMP 36.7; O2SAT 97
[2016-04-18 07:11] LABS: BASO % 0.6 %; BASO ABS # 0.04 K/uL (0-0.2); COMPLETE YES; EOS % 1.5 %; HEMATOCRIT 37.8 % (37-47); IG% 0.3 %; LYMPH % 29.1 %; LYMPH ABS # 1.93 K/uL (1.2-3.4); MEAN CELL VOLUME 84.4 fL (80-100); MEAN CORPUSCULAR HEMOGLOBIN 28.1 pg (25-34); MEAN CORPUSCULAR HGB CONC 33.3 g/dl (32-36); MEAN PLATELET VOLUME 10.8 fL (7.4-10.4); MONO % 10.5 %; PLATELET COUNT 254 K/uL (130-400); RED BLOOD COUNT 4.48 M/uL (4.2-5.4); WHITE BLOOD COUNT 6.64 K/uL (4.8-10.8)
[2016-04-18 07:17] LABS: INR 2.7 (0.9-1.1); PROTHROMBIN TIME (PATIENT) 29.9 SECONDS (9.0-12.0)
[2016-04-18 07:45] LABS: BUN/CREATININE RATIO 13.9 (10-20); CREATININE 0.87 mg/dl (0.60-1.20); POTASSIUM 3.9 mmol/L (3.5-5.1)
[2016-04-18 07:55] VITALS: BP 145/82; PULSE 69; TEMP 36.3; O2SAT 97
[2016-04-18] MEDS: SERTRALINE HCL 50 MG TAB PO SCH (08:01)
[2016-04-18] MEDS: CEROVITE ADV FORMULA TAB PO SCH (08:02)
[2016-04-18] MEDS: METOPROLOL TARTRATE 25 MG TAB PO SCH (08:02)
[2016-04-18] MEDS: DOFETILIDE 125 MCG CAP PO SCH (08:02)
[2016-04-18] MEDS: ASPIRIN 81 MG ECTAB PO SCH (08:02)
[2016-04-18] MEDS: LOPERAMIDE HCL 2 MG CAP PO PRN (08:33)
[2016-04-18 11:57] VITALS: BP 117/62; PULSE 77; TEMP 36.8; O2SAT 97
--- NOTE | 2016-04-18 13:33 | Progress Note ---
Medicine Progress Note Date & Time of Visit: Apr 18, 2016 at 13:19. Subjective patient seen resting in bed in good spirits denies chest pain, dyspnea, palpitations, dizziness remains in sinus rhythm, rate controlled diarrhea has improved no abdominal pain tolerating diet well reports sore throat, swollen neck glands, no dysphagia/fever/chills/arthralgias/ myalgias Objective Last 8 Hrs Date Time Temp Pulse Resp B/P Pulse Ox O2 Delivery O2 Flow Rate FiO2 04/18/16 12:15 Room Air 04/18/16 11:57 36.8 77 16 117/62 97 Room Air 04/18/16 08:15 Room Air 04/18/16 07:55 36.3 69 16 145/82 97 Room Air Physical Exam: General- oriented x 3, not in distress, speaks in sentences with no effort Eyes- anicteric ENT- tonsils: mild erythema, no exudate, no swelling Neck- (+) cervical adenopathy- left Lungs- clear to auscultation bilaterally, no rales/wheeze Heart- normal rate, regular rhythm; no murmurs Abdomen- normal bowel sounds, non distended, soft, non tender Extremities- no pretibial edema, no calf tenderness Neuro- alert, oriented x 3;no gross focal deficits Skin- warm & dry Laboratory Results: Last 24 Hours Test 04/17/16 18:05 04/17/16 19:40 04/18/16 07:00 Magnesium Level 2.0 mg/dl Urine Color YELLOW Urine Appearance CLEAR Urine pH 5.0 Urine Specific [place] 1.002 Urine Protein NEG Urine Glucose (UA) NEG Urine Ketones NEG Urine Occult Blood NEG Urine Nitrite NEG Urine Bilirubin NEG Urine Urobilinogen NEG Urine Leukocyte Esterase SMALL Urine WBC (Auto) 5-10 /hpf Urine RBC (Auto) 0-4 /hpf Urine Hyaline Casts (Auto) 0 /lpf Urine Epithelial Cells (Auto) 20-30 /lpf Urine Bacteria (Auto) NEG White Blood Count 6.64 K/uL Red Blood Count 4.48 M/uL Hemoglobin 12.6 g/dL Hematocrit 37.8 % Mean Corpuscular Volume 84.4 fL Mean Corpuscular Hemoglobin 28.1 pg Mean Corpuscular Hemoglobin Concent 33.3 g/dl Platelet Count 254 K/uL Mean Platelet Volume 10.8 fL Neutrophils (%) (Auto) 58.0 % Lymphocytes (%) (Auto) 29.1 % Monocytes (%) (Auto) 10.5 % Eosinophils (%) (Auto) 1.5 % Basophils (%) (Auto) 0.6 % Neutrophils # (Auto) 3.85 K/uL Lymphocytes # (Auto) 1.93 K/uL Monocytes # (Auto) 0.70 K/uL Eosinophils # (Auto) 0.10 K/uL Basophils # (Auto) 0.04 K/uL RDW Standard Deviation 49.0 fL RDW Coefficient of Variation 16.0 % Immature Granulocyte % (Auto) 0.3 % Immature Granulocyte # (Auto) 0.02 K/uL Prothrombin Time 29.9 SECONDS Prothromb Time International Ratio 2.7 Sodium Level 144 mmol/L Potassium Level 3.9 mmol/L Chloride Level 110 mmol/L Carbon Dioxide Level 25 mmol/L Anion Gap 9.0 mmol/L Blood Urea Nitrogen 12 mg/dl Creatinine 0.87 mg/dl Est Creatinine Clear Calc Drug Dose 55.8 ml/min Estimated GFR () 78.2 Estimated GFR (Non- 67.5 BUN/Creatinine Ratio 13.9 Random Glucose 103 mg/dl Calcium Level 9.0 mg/dl Assessment & Plan 70 year old female with history of Paroxysmal A fib, Mitral and Aortic Valve Replacement on Coumadin, presenting with chest pain CHEST PAIN LIKELY FROM A FIB WITH RVR - s/p Cardioversion today remains in NSR - echo noted - Metoprolol increased to 25mg BID continue coumadin -cont Tikosyn, ASA , Statin - appreciate Dr. Almeida's input SUPRATHERAPEUTIC INR -INR 2.7(goal 2.5-3.5) - coumadin at 4mg po today -monitor INR daily DIARRHEA c diff test: negative stool cultures: negative given empiric Zosyn x 1 day (has prolonged qt, will avoid cipro) IV fluids Imodium PRN clear liquids - improved continue PRN imodium, increase oral fluid intake POSSIBLE TONSILLITIS/PHARYNGITIS check Flu swab and Strep swab will discharge on Augmentin x 5 days H/O RHEUMATIC FEVER/AVR/MVR -INR 2.7(goal 2.5-3.5) - coumadin at 4mg po today -monitor INR daily HTN -BP stable -cont metoprolol -monitor DYSLIPIDEMIA - statin H/O BROWNE CIRRHOSIS -follows with GI in [place] -LFTs WNL DVT PROPHYLAXIS - coumadin CODE STATUS -FULL CODE per discussion with patient upon admission DISPO d/c home today ff up with PCP in 3-5 days ff up with Heliotherapist in 2-4 weeks Current Inpatient Medications: Current Inpatient Medications Medications (Trade) Dose Ordered Sig/Maricarmen Route Start Time Stop Time Status Last Admin Dose Admin Acetaminophen (Tylenol Tab) 650 mg Q4H PRN PO 04/16/16 14:00 05/16/16 13:59 04/17/16 16:01 650 MG Nitroglycerin (Nitrostat Tab) 0.4 mg UD PRN SL 04/16/16 14:00 05/16/16 13:59 Aspirin (Ecotrin Tab) 81 mg DAILY PO 04/17/16 09:00 05/17/16 08:59 04/18/16 08:02 81 MG Multivitamins/ Minerals (Multivitamin W/ Minerals Tab) 1 tab DAILY PO 04/17/16 09:00 05/17/16 08:59 04/18/16 08:02 1 TAB Sertraline HCl (Zoloft Tab) 50 mg DAILY PO 04/17/16 09:00 05/17/16 08:59 04/18/16 08:01 50 MG Dofetilide (Tikosyn) 125 mcg BID PO 04/16/16 21:00 05/16/16 20:59 04/18/16 08:02 125 MCG Miscellaneous 1 ea 1 ea PRN PRN N/A 04/16/16 14:45 04/16/17 14:44 Sodium Chloride (Nss 1000ml) 1,000 ml @ 80 mls/hr [id number] IV 04/16/16 14:45 04/18/16 01:47 80 MLS/HR Metoprolol Tartrate (Lopressor Tab) 25 mg BID PO 04/17/16 09:00 05/17/16 08:59 04/18/16 08:02 25 MG Piperacillin Sod/ Tazobactam Sod (Consult) 1 ea UD PRN N/A 04/17/16 18:30 05/17/16 18:29 Loperamide HCl (Imodium Cap) 2 mg DAILY PRN PO 04/17/16 17:45 05/17/16 17:44 04/18/16 08:33 2 MG Warfarin Sodium 3 mg 3 mg DAILY@16 PO 04/18/16 16:00 05/18/16 15:59 Piperacillin Sod/ Tazobactam Sod/ Dextrose (Zosyn Iv/D5 100ml) 115 ml @ 28.75 mls/ hr Q8H IV 04/18/16 01:00 04/28/16 00:59 04/18/16 08:33 28.75 MLS/HR
[2016-04-18] MEDS ORDERED: IMD2X PO (13:38)
[2016-04-18] MEDS ORDERED: LPR25 PO (13:38)
[2016-04-18] MEDS ORDERED: AMOX875T PO (13:38)
--- NOTE | 2016-04-18 13:55 | Discharge Summary ---
Discharge Summary Admission Date: Apr 16, 2016 at 13:52 Discharge Date: Apr 18, 2016 Discharge Disposition: Home Principal Diagnosis: SYMPTOMATIC ATRIAL FLUTTER WITH RVR Secondary Diagnoses/Problems: DIARRHEA POSSIBLE TONSILLO-PHARYNGITIS Procedures: S/P ELECTRICAL CARDIOVERSION 04/17/[address] GEE Consultations: DOUBLE CORNER CUTTER DR. GEE Pending Studies/Follow-Up: Please refer to hospital course below. Medication Reconciliation New Medications: Amoxicillin & Pot Clavulanate (Augmentin 875-125 mg) 1 Tab Tab 1 TAB PO BID for 5 Days, #10 TAB Loperamide Hcl (Imodium) 2 Mg Cap 2 MG PO DAILY PRN for Diarrhea, #20 CAP 2 Refills take 1 cap after each loose bowel movement (do not take more than 8 capsules in 1 day) Metoprolol Tartrate (Lopressor) 25 Mg Tab 25 MG PO BID for 30 Days, #60 TAB 2 Refills Continued Medications: Amoxicillin (Amoxil) 500 Mg Cap 500 MG PO UD PRN for PRIOR TO DENTAL APPTS, #21 CAP Aspirin (Aspirin Chewable) 81 Mg Chew 81 MG PO DAILY, TAB Atorvastatin (Atorvastatin Calcium) 20 Mg Tab 20 MG PO BID, #90 Dofetilide (Tikosyn) 125 Mcg Cap 125 MCG PO BID for 30 Days, #60 CAP 6 Refills Furosemide (Lasix) 20 Mg Tab 20 MG PO Q2D, TAB Nitroglycerin (Nitrostat) 0.4 Mg Tab 1 TAB PO DIRECTED, #25 Ocuvite Preservision (Ocuvite Preservision) 1 Tab Tab 1 TAB PO DAILY, TAB Sertraline (Zoloft) 50 Mg Tab 50 MG PO DAILY, TAB Warfarin Sodium (Coumadin) 1 Mg Tab 3 MG PO 3XWK for 30 Days, TAB 5 Refills Take 3 mg PO MWF; Take 4 mg PO all other days Discontinued Medications: Metoprolol Tartrate (Lopressor) 25 Mg Tab 25 MG PO DAILY for 30 Days, #30 TAB 4 Refills Metoprolol Tartrate (Lopressor) 25 Mg Tab 12.5 MG PO QPM for 30 Days, #30 TAB 4 Refills Admission Information HPI (per Admitting provider): This is a 70 y/o female with PMHx of PAF on Coumadin, h/o AVR and MVR, CAD s/p CABG, HTN, Dyslipidemia and other problems as outlined below who presents to the ED c/p palpitations that began yesterday. Pt reports that yesterday morning she woke up with palpitations. She checked her pulse which was noted to be irregular in the 130s. Sxs were assoc with chest "pressure" that radiated to the R shoulder. She also experienced SOB and lightheadedness/dizziness. Pt took a nitro for her chest "pressure" which relieved the discomfort. By the afternoon her sxs seemed to have resolved. This morning pt woke up with similar sxs however the heart rated was noted to be in the 170s and patient felt so dizzy she thought she might pass out. Due to her worsening sxs, patient decided to go to the ED for further evaluation. Pt has a history of PAF on Coumadin and states that she has an episode every 5-6 months. Last episode was November 2015. She also has a h/o CAD s/p CABG x 3 with concurrent AVR and MVR in 2002. She also mentions intermittent diarrhea over the past 3 weeks. She estimates she has approximately 5 episodes daily. She has been trying to follow the BRAT diet. Pt denies fever/chills, diaphoresis, abd pain, N/V, hematochezia, melena, bladder issues, LE edema, calf pain. In the ED, vitals are stable. Trop negative and EKG NSR with no acute ischemic changes. INR 4.2. Pt is currently feeling comfortable and has no complaints. She will be admitted for further evaluation and treatment. Physical Exam (per Admitting): General Appearance: WD/WN, no apparent distress, + pertinent finding (Pt is sitting up in bed with at bedside ) Head: normocephalic, atraumatic Eyes: normal inspection ENT: hearing grossly normal Neck: supple Respiratory/Chest: chest non-tender, lungs clear, normal breath sounds, no respiratory distress Cardiovascular: regular rate, rhythm, no edema, no murmur Abdomen/GI: normal bowel sounds, non tender, soft Back: normal inspection Extremities/Musculoskelatal: normal inspection, no calf tenderness, no pedal edema Neurologic/Psych: alert, normal mood/affect, oriented x 3 Skin: normal color, warm/dry Hospital Course 70 year old female with history of Paroxysmal A fib, Mitral and Aortic Valve Replacement on Coumadin, presenting with chest pain CHEST PAIN LIKELY FROM ATRIAL FLUTTER WITH RVR - successful Electrical Cardioversion 04/17/16 remained in normal sinus rhythm since - echo: * The study was technically limited. * There is a bi-leaflet ([employer]) aortic mechanical prosthesis. * The gradient is normal for this prosthetic aortic valve. 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 * There is a bi-leaflet ([employer]) mechanical prosthesis in the mitral position.. * The prosthetic mitral valve appears to open well. * The left ventricle is normal in size. * Left ventricular systolic function is normal. * Ejection Fraction = 65-70%. * The right heart is not well visualized. - Metoprolol increased to 25mg BID continue coumadin, Tikosyn, ASA , Statin - appreciate Dr. Gee's input SUPRATHERAPEUTIC INR - admitted with INR >4, coumadin held - on discharge, INR 2.7(goal 2.5-3.5) - coumadin at 4mg po today then resume usual coumadin dose - INR on thursday DIARRHEA c diff test: negative stool cultures: negative given empiric Zosyn x 2 days (has prolonged qt, avoided cipro) IV fluids Imodium PRN - improved continue PRN imodium, increase oral fluid intake POSSIBLE TONSILLITIS/PHARYNGITIS Flu swab: negative continue Augmentin x 5 days H/O RHEUMATIC FEVER/AVR/MVR - admitted with INR >4, coumadin held - on discharge, INR 2.7(goal 2.5-3.5) - coumadin at 4mg po today then resume usual coumadin dose - INR on thursday HTN -BP stable -cont metoprolol -monitor DYSLIPIDEMIA - statin H/O BROWNE CIRRHOSIS -follows with GI in [place] -LFTs WNL DVT PROPHYLAXIS - coumadin CODE STATUS -FULL CODE per discussion with patient upon admission DISPO d/c home coumadin clinic ff up on thursday ff up with PCP in 3-5 days ff up with Side Trimmer in 2-4 weeks Total time spent on discharge = 40 minutes This includes examination of the patient, discharge planning, medication reconciliation, and communication with other providers. Discharge Instructions Discharge Instructions Admission Reason for Admission: Chest Pain Discharge Discharge Diagnosis / Problem: ATRIAL FIBRILLATION IN RAPID VENTRICULAR RESPONSE Discharge Goals Goal(s): Diagnostic testing, Therapeutic intervention Activity Recommendations Activity Limitations: as noted below (NO HEAVY EXERTION UNTIL SEEN BY PRIMARY CARE PHYSICIAN) Driving or Machine Use: NO DRIVING UNTIL SEEN BY PRIMARY CARE PHYSICIAN . Instructions / Follow-Up Instructions / Follow-Up PLEASE REVIEW YOUR MEDICATION LIST AND FOLLOW INSTRUCTIONS CAREFULLY. CALL 911 IMMEDIATELY IF WITH PERSISTENT ELEVATED HEART RATE, CHEST PAIN, DIZZINESS, SHORTNESS OF BREATH. CALL PRIMARY CARE PHYSICIAN OR RETURN TO ER IMMEDIATELY IF WITH FEVER/CHILLS, MUSCLE ACHES/JOINT PAINS, OR IF SORE THROAT AND SWOLLEN GLANDS, DIARRHEA, STOMACH PAINS NOT IMPROVING. MAINTAIN SOFT, LOW FAT/DAIRY DIET X 1-2 DAYS, THEN ADVANCE TOLERATED. BLOOD WORK (INR) WITH [facility] ON Thursday04/21/16 9:30am. FOLLOW UP WITH DR. MCNEAL ON Thursday04/23/15 AT 12:50 PM. FOLLOW UP WITH DOUBLE CORNER CUTTER IN 2-4 WEEKS. Current Hospital Diet Patient's current hospital diet: Clear Liquid Diet Discharge Diet Recommended Diet: AHA Diet (Heart Healthy), Low Fiber Diet, Low Fat Diet Pending Studies Studies pending at discharge: no Medical Emergencies . Who to Call and When: Medical Emergencies: If at any time you feel your situation is an emergency, please call 911 immediately. . Non-Emergent Contact Non-Emergency issues call your: Primary Care Provider, Side Trimmer Call Non-Emergent contact if: you have a fever, your pain is not controlled . 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 "Provider Documentation" section prepared by Daniel Olmstead. VTE Core Measure Inpt VTE Proph given/why not?: Warfarin (Coumadin)
--- NOTE | 2016-04-18 14:23 | Cardiology Follow-Up ---
Subjective General Date of Service: Apr 18, 2016. Chief Complaint: Follow-up, palpitations Pt evaluation today including: conversation w/ patient, physical exam History of Present Illness The patient is a 70 year old female seen in cardiology follow-up. Patient remained in hospital yesterday and overnight due to concerns of diarrhea. Her palpitations have resolved status post direct current cardioversion. Telemetry overnight this morning as well as EKG reveals sinus rhythm. Her corrected QT interval is improved this morning and is less than 500 ms. Allergies Coded Allergies: Latex (Verified Allergy, Severe, wheezing, 04/16/16) Levothyroxine (Unverified Allergy, Intermediate, TACHYCARDIA, 04/16/16) Sulfa Antibiotics (Verified Allergy, Intermediate, Rash, hives, 04/16/16) Social History Smoking Status: Never Smoker Hx Tobacco Use In Past Year?: No Hx Alcohol Use - Type And Amou: No Hx Substance Use - Type And Am: No Problem List Medical Problems: (1) Atrial flutter with rapid ventricular response Status: Acute (2) Chest pain Status: Acute (3) History of atrial fibrillation Status: Acute (4) Palpitations Status: Acute (5) Precordial chest pain Status: Acute (6) Rapid atrial fibrillation Status: Acute (7) Supratherapeutic INR Status: Acute Physical Exam Vital Signs Last Vital Signs Documentation Date Time Temp Pulse Resp B/P Pulse Ox O2 Delivery O2 Flow Rate FiO2 04/18/16 12:15 Room Air 04/18/16 11:57 36.8 77 16 117/62 97 04/17/16 08:35 4 Physical Exam Constitutional: Level of Distress: NAD ENMT: normal ENT inspection Neck: supple Lungs: Auscultation: no wheezing, no rales/crackles, no rhonchi Cardiovascular: Heart Auscultation: RRR, pertinent finding ( prosthetic heart sounds heard) Abdomen: Inspection & Palpation: soft, non-distended Extremities: no cyanosis, no edema Assessment and Plan Assessment and Plan Impression: 1 symptomatic atrial flutter with rapid ventricular rates associated with exertion, now sinus rhythm status post direct current cardioversion 04/17/2016 2. History of rheumatic heart disease for which patient has mechanical aortic valve replacement mechanical aortic mitral valve replacement with stable echocardiogram findings on 04/17/2016 3. Stable CAD 4. Diarrhea-improved. Plan: Continue pre-hospital dose of dofetilide. Metoprolol tartrate was increased to 25 milligrams twice daily. Patient should follow up with clinic Coumadin Clinic. Outpatient cardiology follow-up was already been arranged. Laboratory Results Last 24 Hours Test 04/17/16 18:05 04/17/16 19:40 04/18/16 07:00 04/18/16 13:30 Magnesium Level 2.0 mg/dl Urine Color YELLOW Urine Appearance CLEAR Urine pH 5.0 Urine Specific [place] 1.002 Urine Protein NEG Urine Glucose (UA) NEG Urine Ketones NEG Urine Occult Blood NEG Urine Nitrite NEG Urine Bilirubin NEG Urine Urobilinogen NEG Urine Leukocyte Esterase SMALL Urine WBC (Auto) 5-10 /hpf Urine RBC (Auto) 0-4 /hpf Urine Hyaline Casts (Auto) 0 /lpf Urine Epithelial Cells (Auto) 20-30 /lpf Urine Bacteria (Auto) NEG White Blood Count 6.64 K/uL Red Blood Count 4.48 M/uL Hemoglobin 12.6 g/dL Hematocrit 37.8 % Mean Corpuscular Volume 84.4 fL Mean Corpuscular Hemoglobin 28.1 pg Mean Corpuscular Hemoglobin Concent 33.3 g/dl Platelet Count 254 K/uL Mean Platelet Volume 10.8 fL Neutrophils (%) (Auto) 58.0 % Lymphocytes (%) (Auto) 29.1 % Monocytes (%) (Auto) 10.5 % Eosinophils (%) (Auto) 1.5 % Basophils (%) (Auto) 0.6 % Neutrophils # (Auto) 3.85 K/uL Lymphocytes # (Auto) 1.93 K/uL Monocytes # (Auto) 0.70 K/uL Eosinophils # (Auto) 0.10 K/uL Basophils # (Auto) 0.04 K/uL RDW Standard Deviation 49.0 fL RDW Coefficient of Variation 16.0 % Immature Granulocyte % (Auto) 0.3 % Immature Granulocyte # (Auto) 0.02 K/uL Prothrombin Time 29.9 SECONDS Prothromb Time International Ratio 2.7 Sodium Level 144 mmol/L Potassium Level 3.9 mmol/L Chloride Level 110 mmol/L Carbon Dioxide Level 25 mmol/L Anion Gap 9.0 mmol/L Blood Urea Nitrogen 12 mg/dl Creatinine 0.87 mg/dl Est Creatinine Clear Calc Drug Dose 55.8 ml/min Estimated GFR () 78.2 Estimated GFR (Non- 67.5 BUN/Creatinine Ratio 13.9 Random Glucose 103 mg/dl Calcium Level 9.0 mg/dl
[2016-04-18 15:22] VITALS: BP 117/62; PULSE 77; TEMP 36.8; O2SAT 97
[2016-04-18 15:33] LABS: INFLUENZA A PCR Neg for Influ A (NEG); INFLUENZA B PCR Neg for Influ B (NEG)
[2016-04-18] MEDS ORDERED: WARFARIN SOD 4 MG TAB PO SCH (16:00)
[2016-04-18] MEDS ORDERED: WARFARIN SOD 3 MG TAB PO SCH ×2 (16:00)
[2016-05-26] MEDS ORDERED: METO25TA56 PO (10:13)
[2016-05-26] MEDS ORDERED: DOFE125C PO (10:13)
[2016-05-26] MEDS ORDERED: ASPI81TA28 PO (10:13)
== END 2016-04-18 15:55 | disposition home or self-care (01) ==
LOC: ENRESERVTM → ENRESERVDT → C.EDB 11:11 → C.MED 13:52
PROVIDERS: ADMIT Internal Medicine; ATTEND Internal Medicine
DX: I48.92 Unspecified atrial flutter (principal); I48.0 Paroxysmal atrial fibrillation; R79.1 Abnormal coagulation profile; R19.7 Diarrhea, unspecified; K74.60 Unspecified cirrhosis of liver; N18.3 Chronic kidney disease, stage 3 (moderate); I25.10 Atherosclerotic heart disease of native coronary artery without angina pectoris; E03.9 Hypothyroidism, unspecified; E78.5 Hyperlipidemia, unspecified; I12.9 Hypertensive chronic kidney disease with stage 1 through stage 4 chronic kidney disease, or unspecified chronic kidney disease; Z79.82 Long term (current) use of aspirin; Z79.01 Long term (current) use of anticoagulants; Z95.1 Presence of aortocoronary bypass graft; Z95.2 Presence of prosthetic heart valve; Z90.49 Acquired absence of other specified parts of digestive tract; Z90.710 Acquired absence of both cervix and uterus; Z88.2 Allergy status to sulfonamides; Z80.0 Family history of malignant neoplasm of digestive organs

== ENCOUNTER 2016-06-01 14:02 | Emergency (ER) | payer OTHER ==
[~2016-06-01] VITALS: Ht 157.5 cm; Wt 73.9 kg
[~2016-06-01 14:02] MED LIST changes: +ASPI81TA28 PO; -CHOL100010 PO; -LPR25 PO; +METO25TA56 PO; -MNC100 PO; +MULT-190 PO; +WARF1TAB PO; -WARF4TAB44 PO
[2016-06-01 14:06] VITALS: TEMP 36.6; Ht 157.5 cm; Wt 73.9 kg
[2016-06-01] MEDS ORDERED: HYDROmorphone INJ 0.5 MG/0.5 ML SYR IV STA (14:27)
[2016-06-01] MEDS ORDERED: METOCLOPRAMIDE HCL INJ 5 MG/ML 2 ML VIAL IV STA (14:27)
[2016-06-01] MEDS ORDERED: SODIUM CHLORIDE 0.9% 1000ML 1,000 ML IV STA (14:27)
[2016-06-01] MEDS ORDERED: DICY20TA10 PO (14:42)
[2016-06-01] MEDS ORDERED: ENOX80IN SQ (14:42)
[2016-06-01] MEDS ORDERED: IMD/2 PO (14:42)
[2016-06-01 15:00] LABS: BASO % 0.5 %; BASO ABS # 0.04 K/uL (0-0.2); COMPLETE YES; EOS % 0.8 %; HEMATOCRIT 39.5 % (37-47); IG% 0.1 %; LYMPH % 31.8 %; LYMPH ABS # 2.77 K/uL (1.2-3.4); MEAN CELL VOLUME 82.8 fL (80-100); MEAN CORPUSCULAR HEMOGLOBIN 28.3 pg (25-34); MEAN CORPUSCULAR HGB CONC 34.2 g/dl (32-36); MEAN PLATELET VOLUME 10.9 fL (7.4-10.4); MONO % 10.8 %; PLATELET COUNT 275 K/uL (130-400); RED BLOOD COUNT 4.77 M/uL (4.2-5.4)
--- NOTE | 2016-06-01 15:03 | EMERGENCY ROOM VISIT NOTE ---
History Report prepared by Jolie: Darby Reed Under the Supervision of: Dr. Maximino Marie M.D. First contact with patient: 14:17 Chief Complaint: ABDOMINAL PAIN Stated Complaint: STOMACH PAINS, D,V History of Present Illness The patient is a 70 year old female who presents to the Emergency Room with complaints of constant abdominal pain starting three days ago. She currently rates her discomfort as an 8/10 in severity. The patient states that she has been experiencing intermittent diarrhea for the past few months. She states that she was here in April where she was determined to be negative for C- Diff. She states that she has been vomiting for the past few weeks along with the diarrhea. The patient states that she has not been able to keep any food down for longer than 1-2 hours. She states that her emesis was yellow in color yesterday. The patient has seen a GI doctor and is scheduled for an endoscopy and colonoscopy on Thursday. She states that she came to the ED due to concern of increased abdominal pain and the inability to keep her medications down for her atrial fibrillation. The patient notes that she has a history of liver problems. The patient states that she is experiencing weakness. The patient states that she has a history of an appendectomy, hysterectomy, and cholecystectomy. She has history of two mechanical valves and open heart surgery. The patient notes that her Coumadin was recently stopped three days ago and placed on Lovenox in prep for her colonoscopy. Source of History: patient Onset: three days ago Position: abdomen Symptom Intensity: 8/10 Timing: constant Associated Symptoms: + diarrhea, + vomiting, + weakness Review of Systems See HPI for pertinent positives & negatives. A total of 10 systems reviewed and were otherwise negative. 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 (11) Rheumatic heart disease Surgical Problems: (1) H/O esophagogastroduodenoscopy (2) Hx of appendectomy (3) S/P AVR (aortic valve replacement) (4) S/P CABG (coronary artery bypass graft) (5) S/P cholecystectomy (6) S/P MVR (mitral valve replacement) (7) S/P NELLY (total abdominal hysterectomy) Family History FH: cancer MOTHER (colon CA) Social History Smoking Status: Never Smoker Alcohol Use: none Drug Use: none Marital Status: Housing Status: lives with significant other Occupation Status: retired Current/Historical Medications Scheduled Aspirin (Aspirin Ec), 81 MG PO QAM Atorvastatin (Atorvastatin Calcium), 20 MG PO HS Dicyclomine Hcl (Dicyclomine Hcl), 0.5 TAB PO QID Docusate Sodium (Colace), 1 CAP PO BID Dofetilide (Tikosyn), 1 TAB PO BID Enoxaparin (Lovenox), 80 MG SQ Q12H Furosemide (Lasix), 20 MG PO Q2D Loperamide Hcl (Imodium), 2 MG PO DAILY Metoprolol Tartrate (Lopressor) (Lopressor), 25 MG PO BID Ocuvite Preservision (Ocuvite Preservision), 1 TAB PO HS Ondasetron Odt (Zofran Odt), 4 MG SL Q6H Sennosides (Senokot), 8.6 MG PO HS Sertraline (Zoloft), 50 MG PO QAM Scheduled PRN Nitroglycerin (Nitrostat), 1 TAB PO UD PRN for Chest Pain Oxycodone Immediate Rel Tab (Roxicodone Ir), 1-2 TAB PO Q4H PRN for Severe Pain Allergies Coded Allergies: Levothyroxine (Unverified Allergy, Intermediate, TACHYCARDIA, 06/01/16) Sulfa Antibiotics (Verified Allergy, Intermediate, Rash, hives, 06/01/16) Latex2 -Systemic Allergic Response (Verified Allergy, Unknown, WHEEZING, ) Lidocaine (Verified Allergy, Unknown, HIVES, 06/01/16) Physical Exam Vital Signs Date Time Temp Pulse Resp B/P Pulse Ox O2 Delivery O2 Flow Rate FiO2 06/01/16 17:44 65 16 143/56 99 06/01/16 16:00 66 16 147/75 97 06/01/16 14:43 66 06/01/16 14:06 36.6 72 20 137/72 97 Room Air Physical Exam GENERAL: Patient is a healthy-appearing well-nourished HEAD: Normocephalic atraumatic EYES: Ocular movements intact pupils equal and react to light OROPHARYNX mucous membranes are moist no exudates present no erythema or edema present NECK: Supple no nuchal rigidity CHEST: Good equal expansion LUNGS: Clear and equal to auscultation CARDIAC: Normal S1 and S2 ABDOMEN: Soft, tender in right upper quadrant, no guarding BACK: No CVA tenderness EXTREMITIES: No pain upon palpation normal muscle strength in all groups no clubbing cyanosis or edema NEURO: Patient is following commands is answering questions appropriately. Alert and oriented x3 Cranial Nerves 2-12 grossly intact Medical Decision & Procedures ER Provider Diagnostic Interpretation: Radiology results as stated below per my review and radiologist interpretation: CT ABD/PELVIS IV AND ORAL CONT CLINICAL HISTORY: Right upper quadrant abdominal pain DIARRHEA AND VOMITING COMPARISON STUDY: 08/23/2014 TECHNIQUE: Following the IV administration of 116 mL of Optiray-320, CT scan of the abdomen and pelvis was performed from the lung bases to the proximal femurs. Images are reviewed in the axial, sagittal, and coronal planes. IV contrast was administered without complication. CT DOSE: 457.01 mGy.cm FINDINGS: Lower chest: The heart is enlarged. There is no lobar consolidation. There is minor basilar atelectasis. Liver: There is mild hepatic steatosis. No focal masses are visualized. Gallbladder: Surgically absent Spleen: Normal in size and attenuation. Pancreas: Unremarkable. Adrenal glands: Unremarkable. Kidneys: There is a 1 cm right renal hypodensity similar to the prior study and likely representing a cyst. There is no hydronephrosis. Bowel: There are no transition zones to indicate bowel obstruction. There is a low-lying cecum. The appendix is surgically absent. There are scattered colonic diverticula. There is no acute diverticulitis. Peritoneum: There is no intraperitoneal free air or abdominal ascites. There is a fat-containing upper abdominal ventral hernia. Vasculature: The abdominal aorta is normal in course and caliber. Adenopathy: None. Pelvic viscera: The uterus appears surgically absent. Skeletal structures: There is air within the anterior abdominal wall, likely secondary to injection sites. IMPRESSION: 1. Fat-containing upper abdominal ventral hernia 2. Mild hepatic steatosis 3. No evidence of bowel obstruction. No evidence of free air 4. No acute inflammatory changes Electronically signed by: Fantasma Freedman M.D. 06/01/2016 5:12 PM Dictated Date/Time: 06/01/2016 5:05 PM Laboratory Results 06/01/16 14:50 Red Blood Count 4.77, Mean Corpuscular Volume 82.8, Mean Corpuscular Hemoglobin 28.3, Mean Corpuscular Hemoglobin Concent 34.2, Mean Platelet Volume 10.9, Neutrophils (%) (Auto) 56.0, Lymphocytes (%) (Auto) 31.8, Monocytes (%) (Auto) 10.8, Eosinophils (%) (Auto) 0.8, Basophils (%) (Auto) 0.5, Neutrophils # (Auto ) 4.87, Lymphocytes # (Auto) 2.77, Monocytes # (Auto) 0.94, Eosinophils # (Auto ) 0.07, Basophils # (Auto) 0.04 06/01/16 14:50 Test 06/01/16 14:50 White Blood Count 8.70 K/uL (4.8-10.8) Red Blood Count 4.77 M/uL (4.2-5.4) Hemoglobin 13.5 g/dL (12.0-16.0) Hematocrit 39.5 % (37-47) Mean Corpuscular Volume 82.8 fL (80-100) Mean Corpuscular Hemoglobin 28.3 pg (25-34) Mean Corpuscular Hemoglobin Concent 34.2 g/dl (32-36) Platelet Count 275 K/uL (130-400) Mean Platelet Volume 10.9 fL (7.4-10.4) Neutrophils (%) (Auto) 56.0 % Lymphocytes (%) (Auto) 31.8 % Monocytes (%) (Auto) 10.8 % Eosinophils (%) (Auto) 0.8 % Basophils (%) (Auto) 0.5 % Neutrophils # (Auto) 4.87 K/uL (1.4-6.5) Lymphocytes # (Auto) 2.77 K/uL (1.2-3.4) Monocytes # (Auto) 0.94 K/uL (0.11-0.59) Eosinophils # (Auto) 0.07 K/uL (0-0.5) Basophils # (Auto) 0.04 K/uL (0-0.2) RDW Standard Deviation 49.0 fL (36.4-46.3) RDW Coefficient of Variation 16.1 % (11.5-14.5) Immature Granulocyte % (Auto) 0.1 % Immature Granulocyte # (Auto) 0.01 K/uL (0.00-0.02) Prothrombin Time 13.9 SECONDS (9.0-12.0) Prothromb Time International Ratio 1.3 (0.9-1.1) Activated Partial Thromboplast Time 40.3 SECONDS (21.0-31.0) Partial Thromboplastin Ratio 1.5 Heparin Anti-Xa Act, Low Molec Wt 1.22 IU/ML (0 - <0.10) Urine Color DK YELLOW Urine Appearance CLEAR (CLEAR) Urine pH 7.5 (4.5-7.5) Urine Specific Deane 1.010 (1.000-1.030) Urine Protein NEG (NEG) Urine Glucose (UA) NEG (NEG) Urine Ketones NEG (NEG) Urine Occult Blood NEG (NEG) Urine Nitrite NEG (NEG) Urine Bilirubin NEG (NEG) Urine Urobilinogen NEG (NEG) Urine Leukocyte Esterase MODERATE (NEG) Urine WBC (Auto) >30 /hpf (0-5) Urine RBC (Auto) 0-4 /hpf (0-4) Urine Hyaline Casts (Auto) 1-5 /lpf (0-5) Urine Epithelial Cells (Auto) 5-10 /lpf (0-5) Urine Bacteria (Auto) NEG (NEG) Anion Gap 11.0 mmol/L (3-11) Est Creatinine Clear Calc Drug Dose 56.0 ml/min Estimated GFR () 77.2 Estimated GFR (Non- 66.6 BUN/Creatinine Ratio 11.7 (10-20) Calcium Level 9.7 mg/dl (8.5-10.1) Total Bilirubin 0.9 mg/dl (0.2-1) Direct Bilirubin 0.2 mg/dl (0-0.2) Aspartate Amino Transf (AST/SGOT) 49 U/L (15-37) Alanine Aminotransferase (ALT/SGPT) 48 U/L (12-78) Alkaline Phosphatase 109 U/L (45-117) Total Creatine Kinase 42 U/L (26-192) Creatine Kinase MB < 0.5 ng/ml (0.5-3.6) Creatine Kinase MB Ratio (0-3.0) Troponin I < 0.015 ng/ml (0-0.045) Total Protein 8.6 gm/dl (6.4-8.2) Albumin 3.9 gm/dl (3.4-5.0) Lipase 181 U/L (73-393) Date/Time Source Procedure Growth Status 06/01/16 00:00 Stool C.difficile Toxin B Gene (PCR) - Final No C. difficile toxin B gene detected Complete Labs reviewed by ED physician. Medications Administered Medications (Trade) Dose Ordered Sig/Maricarmen Route Start Time Stop Time Status Last Admin Dose Admin Sodium Chloride (Nss 1000ml) 1,000 ml @ 999 mls/hr Q1H1M STAT IV 06/01/16 14:27 06/01/16 15:27 DC 06/01/16 15:03 999 MLS/HR Hydromorphone HCl (Dilaudid Inj) 0.5 mg NOW STAT IV 06/01/16 14:27 06/01/16 14:31 DC 06/01/16 15:03 0.5 MG Metoclopramide HCl (Reglan Inj) 10 mg NOW STAT IV 06/01/16 14:27 06/01/16 14:31 DC 06/01/16 15:03 10 MG Oxycodone HCl (Roxicodone Immediate Rel 5MG Home Pack) 1 homepack UD ONCE PO 06/01/16 18:00 06/01/16 18:01 DC 06/01/16 18:15 1 HOMEPACK Ondansetron HCl (ZOFRAN ODT 4MG Home Pack) 1 homepack UD ONCE PO 06/01/16 18:00 06/01/16 18:01 DC 06/01/16 18:15 1 HOMEPACK ECG Indication: abdominal pain, other (history of atrial fibrillation) Rate (beats per minute): 68 Rhythm: atrial fibrillation Findings: no acute ischemic change, prolonged QT Comparison ECG Date: 04/18/16 Change: EKG change: When compared to EKG done on 04/18/16 atrial fibrillation has replaced normal sinus rhythm. ED Course 1422: Past medical records reviewed. The patient was evaluated in room C6. A complete history and physical examination was performed. 1427: Ordered Reglan Inj 10 mg IV, Dilaudid Inj 0.5 mg IV, NSS 1000 ml @ 999 mls /hr IV. 1604: I reevaluated the patient and she is resting comfortably. 1739: I reevaluated the patient and she is resting comfortably. I discussed the exam findings with her and I discussed the treatment plan. She verbalized complete understanding and agrees. The patient is being sent home. Medical Decision Differential diagnosis: Etiologies such as appendicitis, diverticulitis, PUD, biliary pathology, UTI, pancreatitis, obstruction, mesenteric ischemia, aortic pathology, infections, inflammatory bowel disease, renal colic, as well as others were entertained. This is a 70-year-old female who presents emergency department complaining of diffuse abdominal pain. The patient has also been vomiting today. The patient is scheduled for both an upper and lower endoscopy to get to the bottom of her abdominal pain which is been ongoing the past several months. Serial abdominal examinations were performed on the patient emergency department and at no time did the patient exhibit surgical abdomen. An IV was established, patient given normal saline bolus, Dilaudid, Toradol, Zofran. Repeat examination revealed improvement patient's symptoms. The patient was able to tolerate the prep for the CAT scan and I believe based on this finding that the patient is safe enough to be discharged home. I stressed the need for follow-up with gastroenterology. The patient was given OxyIR for home. Both patient and her were in agreement with treatment plan. Impression Primary Impression: Epigastric pain Additional Impression: Vomiting Scribe Attestation The scribe's documentation has been prepared under my direction and personally reviewed by me in its entirety. I confirm that the note above accurately reflects all work, treatment, procedures, and medical decision making performed by me. Departure Information Dispostion Home / Self-Care Prescriptions Ondasetron Odt (ZOFRAN ODT) 4 Mg Tab 4 MG SL Q6H for Nausea, #6 TAB Prov: Maximino Marie MD 06/01/16 Docusate Sodium (COLACE) 100 Mg Cap 1 CAP PO BID for 10 Days, #20 CAP Prov: Maximino Marie MD 06/01/16 Sennosides (SENOKOT) 8.6 Mg Tab 8.6 MG PO HS, #10 TAB Prov: Maximino Marie MD 06/01/16 Oxycodone Immediate Rel Tab (ROXICODONE IR) 5 Mg Tab 1-2 TAB PO Q4H Y for Severe Pain, #14 TAB Prov: Maximino Marie MD 06/01/16 Referrals No Doctor, Assigned (PCP) Rema Livingston M.D. Forms HOME CARE DOCUMENTATION FORM, IMPORTANT VISIT INFORMATION, School Instructions, Work Instructions Patient Instructions ED Diet Clear Liquid, ED Epigastric Pain [facility], My [facility] Additional Instructions Clear liquid diet next 48 hours You have been examined and treated today on an emergency basis only. This is not a substitute for, or an effort to provide, complete comprehensive medical care. It is impossible to recognize and treat all injuries or illnesses in a single emergency department visit. It is therefore important that you follow up closely with Dr Livingston. Call as soon as possible for an appointment. Thank you for your time and consideration. I look forward to speaking with you again soon. Please don't hesitate to call us if you have any questions. Problem Qualifiers Additional Impression: Vomiting Vomiting type: unspecified Vomiting Intractability: unspecified Nausea presence: unspecified Qualified Codes: R11.10 - Vomiting, unspecified
[2016-06-01 15:09] LABS: URINE APPEARANCE CLEAR (CLEAR); URINE BILIRUBIN NEG (NEG); URINE COLOR DK YELLOW; URINE NITRITE NEG (NEG); URINE PH 7.5 (4.5-7.5); UROBILINOGEN NEG (NEG)
[2016-06-01 15:10] LABS: MANUAL MICROSCOPIC REQUIRED? NO; REVIEW REQ? NO
[2016-06-01 15:18] LABS: ALT/SGPT 48 U/L (12-78); AST/SGOT 49 U/L (15-37); BLOOD UREA NITROGEN 10 mg/dl (7-18); BUN/CREATININE RATIO 11.7 (10-20); CALCIUM 9.7 mg/dl (8.5-10.1); CARBON DIOXIDE 23 mmol/L (21-32); CHLORIDE 108 mmol/L (98-107); CREATININE 0.88 mg/dl (0.60-1.20); GLUCOSE 93 mg/dl (70-99); POTASSIUM 3.5 mmol/L (3.5-5.1); SODIUM 142 mmol/L (136-145)
[2016-06-01 15:23] LABS: ALKALINE PHOSPHATASE 109 U/L (45-117)
[2016-06-01 15:54] LABS: ANTI-Xa* 1.22 IU/ML (0 - <0.10); INR 1.3 (0.9-1.1); PARTIAL THROMBOPLASTIN RATIO 1.5; PROTHROMBIN TIME (PATIENT) 13.9 SECONDS (9.0-12.0)
[2016-06-01] MEDS ORDERED: OPTIRAY 320 IV PRN (17:00)
--- NOTE | 2016-06-01 17:13 | DIAGNOSTIC IMAGING REPORT ---
CT ABD/PELVIS IV AND ORAL CONT CLINICAL HISTORY: Right upper quadrant abdominal pain DIARRHEA AND VOMITING COMPARISON STUDY: 08/23/2014 TECHNIQUE: Following the IV administration of 116 mL of Optiray-320, CT scan of the abdomen and pelvis was performed from the lung bases to the proximal femurs. Images are reviewed in the axial, sagittal, and coronal planes. IV contrast was administered without complication. CT DOSE: 457.01 mGy.cm FINDINGS: Lower chest: The heart is enlarged. There is no lobar consolidation. There is minor basilar atelectasis. Liver: There is mild hepatic steatosis. No focal masses are visualized. Gallbladder: Surgically absent Spleen: Normal in size and attenuation. Pancreas: Unremarkable. Adrenal glands: Unremarkable. Kidneys: There is a 1 cm right renal hypodensity similar to the prior study and likely representing a cyst. There is no hydronephrosis. Bowel: There are no transition zones to indicate bowel obstruction. There is a low-lying cecum. The appendix is surgically absent. There are scattered colonic diverticula. There is no acute diverticulitis. Peritoneum: There is no intraperitoneal free air or abdominal ascites. There is a fat-containing upper abdominal ventral hernia. Vasculature: The abdominal aorta is normal in course and caliber. Adenopathy: None. Pelvic viscera: The uterus appears surgically absent. Skeletal structures: There is air within the anterior abdominal wall, likely secondary to injection sites. IMPRESSION: 1. Fat-containing upper abdominal ventral hernia 2. Mild hepatic steatosis 3. No evidence of bowel obstruction. No evidence of free air 4. No acute inflammatory changes Electronically signed by: Fantasma Freedman M.D. 06/01/2016 5:12 PM Dictated Date/Time: 06/01/2016 5:05 PM
[2016-06-01] MEDS ORDERED: OXYC1TAB3 PO (17:42)
[2016-06-01] MEDS ORDERED: DOCU-94 PO (17:42)
[2016-06-01] MEDS ORDERED: SENN1TAB77 PO (17:42)
[2016-06-01 17:44] VITALS: BP 143/56; PULSE 65; O2SAT 99
[2016-06-01] MEDS ORDERED: ONDA4TAB10 SL (17:44)
[2016-06-01] MEDS ORDERED: OXYCODONE IR HOME PACK PO ONE (18:00)
[2016-06-01] MEDS ORDERED: ONDANSETRON HOME PACK 4MG OD TAB PO ONE (18:00)
== END 2016-06-01 18:17 | disposition home or self-care (01) ==
LOC: C.EDB 14:04 → C.EDC 18:17
DX: R10.13 Epigastric pain (principal); R11.10 Vomiting, unspecified; I48.91 Unspecified atrial fibrillation; I48.92 Unspecified atrial flutter; I25.10 Atherosclerotic heart disease of native coronary artery without angina pectoris; I12.9 Hypertensive chronic kidney disease with stage 1 through stage 4 chronic kidney disease, or unspecified chronic kidney disease; N18.2 Chronic kidney disease, stage 2 (mild); E78.5 Hyperlipidemia, unspecified; E03.9 Hypothyroidism, unspecified; K74.60 Unspecified cirrhosis of liver; I09.9 Rheumatic heart disease, unspecified; Z79.01 Long term (current) use of anticoagulants; Z98.61 Coronary angioplasty status; Z95.2 Presence of prosthetic heart valve; Z90.49 Acquired absence of other specified parts of digestive tract; Z90.710 Acquired absence of both cervix and uterus; Z98.890 Other specified postprocedural states; Z79.82 Long term (current) use of aspirin; Z79.899 Other long term (current) drug therapy; Z88.2 Allergy status to sulfonamides; Z88.8 Allergy status to other drugs, medicaments and biological substances; Z91.040 Latex allergy status; Z80.9 Family history of malignant neoplasm, unspecified

== ENCOUNTER → 2016-06-03 | Day surgery (SDC) | payer OTHER ==
[2016-05-26 10:14] VITALS: BMI 29.0
[~2016-06-03] VITALS: Ht 157.5 cm; Wt 73.6 kg
[~2016-06-03] MED LIST changes: -AMOX500C3 PO; -ASPCH81X PO; +DICY20TA10 PO; +DOCU-94 PO; +ENOX80IN SQ; +IMD/2 PO; +ONDA4TAB10 SL; +ONDANSETRON INJ 2 MG/ML 2 ML VIAL IV PRN; +OXYC1TAB3 PO; +PROPOFOL IV EMULSION 10 MG/ML 20 ML VIAL IV ONE; +SENN1TAB77 PO; -WARF1TAB PO
[2016-06-03 09:40] VITALS: Ht 157.5 cm; Wt 73.6 kg
--- NOTE | 2016-06-03 09:53 | Endo History and Physical ---
History & Physical Date of Service: Jun 03, 2016. Chief Complaint: diarrhea and dysphagia Referring Physician: Ms. Melissa Millard History of Present Illness Patient referred for evaluation of diarrhea and new onset dysphagia. last colonosocpy > 10 years ago. Past Medical History Atrial Fibrillation, CABG, CHF, Hypertension, Thyroid Disease, Valve Replacement , Liver Disease Past Surgical History Hx Cardiac Surgery: Yes (HEART CATH, NO STENT X2;CABG X3 VESSELS,AORTIC AND MITRAL VALVE REPLACEMENT) Hx Internal Defibrillator: No Hx Pacemaker: No Hx Abdominal Surgery: Yes (JUNIOR, PARTIAL HYSTER) Hx of Implantable Prosthesis: No Hx Post-Op Nausea and Vomiting: No Hx Cancer Surgery: No Hx Thoracic Surgery: No Hx Orthopedic: No Hx Urinary Tract Surgery: No Family History None Social History Smoking Status: Never Smoker Hx Substance Use: No Hx Alcohol Use: No Allergies Coded Allergies: Levothyroxine (Unverified Allergy, Intermediate, TACHYCARDIA, 06/03/16) Sulfa Antibiotics (Verified Allergy, Intermediate, Rash, hives, 06/03/16) Latex2 -Systemic Allergic Response (Verified Allergy, Unknown, WHEEZING, ) Lidocaine (Verified Allergy, Unknown, HIVES, 06/03/16) Current Medications Reported Home Medications Medications Dose Route/Sig Max Daily Dose Days Date Category Zofran Odt (Ondansetron HCl) 4 Mg Tab 4 Mg SL Q6H 06/01/16 Rx Colace (Docusate Sodium) 100 Mg Cap 1 Cap PO BID 10 06/01/16 Rx Senokot (Sennosides) 8.6 Mg Tab 8.6 Mg PO HS 06/01/16 Rx Roxicodone Ir (Oxycodone HCl) 5 Mg Tab 1-2 Tab PO Q4H PRN 06/01/16 Rx Imodium (Loperamide HCl) 2 Mg Cap 2 Mg PO DAILY 06/01/16 Reported Lovenox (Enoxaparin Sodium) 80 Mg/0.8 Ml Inj 80 Mg SQ Q12H 06/01/16 Reported Aspirin Ec (Aspirin) 81 Mg Tab 81 Mg PO QAM 05/26/16 Reported Lopressor (Metoprolol Tartrate) 25 Mg Tab 25 Mg PO BID 05/26/16 Reported Tikosyn (Dofetilide) 125 Mcg Cap 1 Tab PO BID 05/26/16 Reported Ocuvite Preservision (Multivitamins/Minerals) 1 Tab Tab 1 Tab PO HS 04/16/16 Reported Atorvastatin Calcium (Atorvastatin) 20 Mg Tab 20 Mg PO HS 05/25/15 Reported Nitrostat (Nitroglycerin) 0.4 Mg Tab 1 Tab PO UD PRN 05/25/15 Reported Zoloft (Sertraline HCl) 50 Mg Tab 50 Mg PO QAM 02/16/13 Reported Lasix (Furosemide) 20 Mg Tab 20 Mg PO Q2D 02/16/13 Reported Vital Signs Weight (Kilograms): 73.64 Height (Feet): 5 Height (Inches): 2 Physical Exam General Appearance: no apparent distress Respiratory/Chest: Auscultation: breath sounds normal Cardiovascular: Heart Auscultation: RRR Abdomen: Inspection & Palpation: soft, RLQ tenderness Assessment and Plan patient with a long history of IBS for evaluation of dysphagia and diarrhea. Plan EGD with dilation today Colonoscopy (likely biopsy and cultures)
--- NOTE | 2016-06-03 11:07 | Discharge Instructions ---
Endoscopy Patient Instructions Date / Procedure(s) Performed Jun 03, 2016. Colonoscopy, EGD Allergy Information Coded Allergies: Levothyroxine (Unverified Allergy, Intermediate, TACHYCARDIA, 06/03/16) Sulfa Antibiotics (Verified Allergy, Intermediate, Rash, hives, 06/03/16) Latex2 -Systemic Allergic Response (Verified Allergy, Unknown, WHEEZING, ) Lidocaine (Verified Allergy, Unknown, HIVES, 06/03/16) Discharge Date / Findings Jun 03, 2016. Diverticulosis of the sigmoid colon Hemorrhoids Mild gastritis Medication Instructions Stopped Medication(s): stopped coumadin and bridged with Lovenox. Restart Stopped Medication(s): Reported Home Medications Medications Dose Route/Sig Max Daily Dose Days Date Category Zofran Odt (Ondansetron HCl) 4 Mg Tab 4 Mg SL Q6H 06/01/16 Rx Colace (Docusate Sodium) 100 Mg Cap 1 Cap PO BID 10 06/01/16 Rx Senokot (Sennosides) 8.6 Mg Tab 8.6 Mg PO HS 06/01/16 Rx Roxicodone Ir (Oxycodone HCl) 5 Mg Tab 1-2 Tab PO Q4H PRN 06/01/16 Rx Imodium (Loperamide HCl) 2 Mg Cap 2 Mg PO DAILY 06/01/16 Reported Lovenox (Enoxaparin Sodium) 80 Mg/0.8 Ml Inj 80 Mg SQ Q12H 06/01/16 Reported Aspirin Ec (Aspirin) 81 Mg Tab 81 Mg PO QAM 05/26/16 Reported Lopressor (Metoprolol Tartrate) 25 Mg Tab 25 Mg PO BID 05/26/16 Reported Tikosyn (Dofetilide) 125 Mcg Cap 1 Tab PO BID 05/26/16 Reported Ocuvite Preservision (Multivitamins/Minerals) 1 Tab Tab 1 Tab PO HS 04/16/16 Reported Atorvastatin Calcium (Atorvastatin) 20 Mg Tab 20 Mg PO HS 05/25/15 Reported Nitrostat (Nitroglycerin) 0.4 Mg Tab 1 Tab PO UD PRN 05/25/15 Reported Zoloft (Sertraline HCl) 50 Mg Tab 50 Mg PO QAM 02/16/13 Reported Lasix (Furosemide) 20 Mg Tab 20 Mg PO Q2D 02/16/13 Reported Provider Instructions Activity Restrictions - No exercising or heavy lifting for 24 hours. - Do not drink alcohol the day of the procedure. - Do not drive a car or operate machinery until the day after the procedure. - Do not make any important decisions or sign important papers in 24 hours after the procedure. Following Day: - Return to full activity which may include returning to work/school. Diet Start your diet with liquids and light foods (jello, soup, juice, toast). Then eat your usual diet if not nauseated. Treatment For Common After Affects For mild abdominal pain, bloating, or excessive gas: - Rest - Eat lightly - Lie on right side Follow-Up Information Follow-up with Ms. Kathleen in 4 to 6 months Try Bentyl 10 mg twice daily Anesthesia Information What You Should Know You have had a procedure that required some medicine to reduce anxiety and discomfort. This treatment is called moderate sedation. After receiving the treatment, you may be sleepy, but you will be able to breathe on your own. The effects of the treatment may last for several hours. Follow these instructions along with Activity/Diet recommendations noted above: * Do NOT do anything where dizziness or clumsiness would be dangerous. * Rest quietly at home today, then you can be up and about tomorrow. * Have a responsible person stay with you the rest of today. * You may have had an I.V. today. If so, you may take the dressing off later today. Recommendations Call your doctor if: * Trouble breathing * Continuous vomiting for more than 24 hours * Temperature above 101 degrees * Severe abdominal pain or bloating * Pain not relieved by pain medicine ordered * There is increased drainage or redness from any incision * A large amount of rectal bleeding greater than 2-3 tablespoons. (If you had a polyp/s removed or have hemorrhoids, a small amount of blood - from the rectum is to be expected.) * You have any unanswered questions or concerns. IN THE EVENT OF A SERIOUS EMERGENCY, GO TO THE NEAREST EMERGENCY ROOM Your discharge instructions were prepared by provider Alie Sanon. Patient Instructions Signature Page Sharee Diana Patient (or Guardian) Signature/Date: I have read and understand the instructions given to me by my caregivers. Caregiver/RN/Doctor Signature/Date: The above-named patient and/or guardian has received patient instructions on this date. + Original Patient Signature Page (only) stays with chart. Please make copy for patient.
--- NOTE | 2016-06-03 11:12 | GI REPORT ---
Procedure Date: 06/03/2016 10:09 AM Procedure: Colonoscopy Indications: Screening for colorectal malignant neoplasm, Incidental diarrhea noted Medicines: Monitored Anesthesia Care Complications: No immediate complications. Estimated blood loss: Minimal. Estimated Blood Loss: Estimated blood loss was minimal. Procedure: Pre-Anesthesia Assessment: - Prior to the procedure, a History and Physical was performed, and patient medications, allergies and sensitivities were reviewed. The patient's tolerance of previous anesthesia was reviewed. - The risks and benefits of the procedure and the sedation options and risks were discussed with the patient. All questions were answered and informed consent was obtained. - Patient identification and proposed procedure were verified prior to the procedure by the physician, the nurse and the high school admissions representative. The procedure was verified in the procedure room. - Pre-procedure physical examination revealed no contraindications to sedation. - ASA Grade Assessment: III - A patient with severe systemic disease. - After reviewing the risks and benefits, the patient was deemed in satisfactory condition to undergo the procedure. - The anesthesia plan was to use monitored anesthesia care (MAC). - Immediately prior to administration of medications, the patient was re-assessed for adequacy to receive sedatives. - The heart rate, respiratory rate, oxygen saturations, blood pressure, adequacy of pulmonary ventilation, and response to care were monitored throughout the procedure. - The physical status of the patient was re-assessed after the procedure. After I obtained informed consent, the scope was passed under direct vision. Throughout the procedure, the patient's blood pressure, pulse, and oxygen saturations were monitored continuously. The Scope was introduced through the anus and advanced to the terminal ileum. The colonoscopy was performed without difficulty. The patient tolerated the procedure well. The quality of the bowel preparation was good. Findings: The digital rectal exam findings include non-thrombosed external hemorrhoids. Pertinent negatives include normal sphincter tone. The terminal ileum appeared normal. Normal mucosa was found in the entire colon. Fluid aspiration was performed through the scope suction channel. Sample(s) were sent for bacterial cultures, Clostridium difficile and ova and parasites. Biopsies for histology were taken with a cold forceps from the entire colon for evaluation of microscopic colitis. Estimated blood loss was minimal. A few small-mouthed diverticula were found in the sigmoid colon. Internal hemorrhoids were found during retroflexion. The hemorrhoids were mild. The exam was otherwise without abnormality. Impression: - Non-thrombosed external hemorrhoids found on digital rectal exam. - The examined portion of the ileum was normal. - Normal mucosa in the entire examined colon. Fluid aspiration performed. Biopsied. - Mild diverticulosis in the sigmoid colon. - Internal hemorrhoids. - The examination was otherwise normal. Recommendation: - Discharge patient to home (ambulatory). - Advance diet as tolerated today. - Await pathology results. - Repeat colonoscopy in 10 years for screening purposes. - Return to GI office PRN. Alie Sanon D.O. Alie Sanon, 06/03/2016 11:12:26 AM This report has been signed electronically. Note Initiated On: 06/03/2016 10:09 AM I attest to the content of the Intraoperative Record and orders documented therein, exceptions below
--- NOTE | 2016-06-03 11:15 | GI REPORT ---
Procedure Date: 06/03/2016 10:10 AM Procedure: Upper GI endoscopy Indications: Dysphagia, Diarrhea Medicines: Monitored Anesthesia Care Complications: No immediate complications. Estimated blood loss: Minimal. Estimated Blood Loss: Estimated blood loss was minimal. Procedure: Pre-Anesthesia Assessment: - Prior to the procedure, a History and Physical was performed, and patient medications, allergies and sensitivities were reviewed. The patient's tolerance of previous anesthesia was reviewed. - The risks and benefits of the procedure and the sedation options and risks were discussed with the patient. All questions were answered and informed consent was obtained. - Patient identification and proposed procedure were verified prior to the procedure by the physician, the nurse and the gumming machine operator. The procedure was verified in the procedure room. - Pre-procedure physical examination revealed no contraindications to sedation. - ASA Grade Assessment: III - A patient with severe systemic disease. - After reviewing the risks and benefits, the patient was deemed in satisfactory condition to undergo the procedure. - The anesthesia plan was to use monitored anesthesia care (MAC). - Immediately prior to administration of medications, the patient was re-assessed for adequacy to receive sedatives. - The heart rate, respiratory rate, oxygen saturations, blood pressure, adequacy of pulmonary ventilation, and response to care were monitored throughout the procedure. - The physical status of the patient was re-assessed after the procedure. After obtaining informed consent, the endoscope was passed under direct vision. Throughout the procedure, the patient's blood pressure, pulse, and oxygen saturations were monitored continuously. The On-site loaner was introduced through the mouth, and advanced to the third part of duodenum. The upper GI endoscopy was accomplished without difficulty. The patient tolerated the procedure well. Findings: No endoscopic abnormality was evident in the esophagus to explain the patient's complaint of dysphagia. It was decided, however, to proceed with dilation of the entire esophagus. A guidewire was placed and the scope was withdrawn. Dilation was performed with a Savary dilator with no resistance at 48 Fr and 51 Fr. The endoscope was then reinserted to evaluate the success of the procedure. Estimated blood loss was minimal. The Z-line was regular and was found 38 cm from the incisors. Diffuse mild inflammation characterized by congestion (edema), erythema and granularity was found in the entire examined stomach. Biopsies were taken with a cold forceps for histology. Estimated blood loss was minimal. The examined duodenum was normal. Biopsies for histology were taken with a cold forceps for evaluation of celiac disease. Estimated blood loss was minimal. Impression: - No endoscopic esophageal abnormality to explain patient's dysphagia. Esophagus dilated. Dilated. - Z-line regular, 38 cm from the incisors. - Chronic gastritis. Biopsied. - Normal examined duodenum. Biopsied. Recommendation: - Perform a colonoscopy today. - Observe patient's clinical course following today's procedure with therapeutic intervention. - Await pathology results. Alie Sanon D.O. Alie Sanon, 06/03/2016 11:15:27 AM This report has been signed electronically. Note Initiated On: 06/03/2016 10:10 AM I attest to the content of the Intraoperative Record and orders documented therein, exceptions below
[2016-06-03 11:26] VITALS: BP 120/66; PULSE 56; O2SAT 98
--- NOTE | 2016-06-03 11:26 | Anesthesiology Progress Note ---
Anesthesia Post Op Note Date & Time Jun 03, 2016 at 11:26 Vital Signs Pain Intensity: 8 Vital Signs Past 12 Hours Date Time Temp Pulse Resp B/P Pulse Ox O2 Delivery O2 Flow Rate FiO2 06/03/16 11:01 59 16 136/57 96 Room Air 06/03/16 10:56 63 63 117/54 16 Room Air 06/03/16 09:54 36.6 66 18 141/65 18 Room Air Notes Mental Status: alert / awake / arousable, participated in evaluation Pt Amnestic to Procedure: Yes Nausea / Vomiting: adequately controlled Pain: adequately controlled Airway Patency, RR, SpO2: stable & adequate BP & HR: stable & adequate Hydration State: stable & adequate Anesthetic Complications: no major complications apparent
--- NOTE | 2016-06-03 11:30 | Anesthesiology Progress Note ---
Anesthesia Post Op Note Date & Time Jun 03, 2016 at 11:30 Vital Signs Pain Intensity: 8 Vital Signs Past 12 Hours Date Time Temp Pulse Resp B/P Pulse Ox O2 Delivery O2 Flow Rate FiO2 06/03/16 11:26 56 18 120/66 98 Room Air 06/03/16 11:01 59 16 136/57 96 Room Air 06/03/16 10:56 63 63 117/54 16 Room Air 06/03/16 09:54 36.6 66 18 141/65 18 Room Air Notes Mental Status: alert / awake / arousable, participated in evaluation Pt Amnestic to Procedure: Yes Nausea / Vomiting: adequately controlled Pain: adequately controlled Airway Patency, RR, SpO2: stable & adequate BP & HR: stable & adequate Hydration State: stable & adequate Anesthetic Complications: no major complications apparent
[2016-06-06 18:29] LABS: CRYPTOSPORIDIUM AG TC 37213 NOT DETECTED (NOT DETECTED); ISOSPORA+CYCLOSPORA NOT DETECTED; O&P GIARDIA AG NOT DETECTED (NOT DETECTED)
== END | disposition home or self-care (01) ==
LOC: C.GI 08:59
PROVIDERS: ATTEND Internal Medicine Gastroenterology
DX: R19.7 Diarrhea, unspecified (principal); R13.10 Dysphagia, unspecified; I48.91 Unspecified atrial fibrillation; K29.50 Unspecified chronic gastritis without bleeding; I50.9 Heart failure, unspecified; I10 Essential (primary) hypertension; E07.9 Disorder of thyroid, unspecified; Z95.1 Presence of aortocoronary bypass graft; Z95.2 Presence of prosthetic heart valve; Z90.49 Acquired absence of other specified parts of digestive tract; Z90.710 Acquired absence of both cervix and uterus

== ENCOUNTER 2018-05-27 10:13 | Observation (INO) ==
[2018-05-27] MEDS ORDERED: NITROGLYCERIN SL 0.4 MG/TAB TAB SL PRN (11:00)
[2018-05-27 11:10] LABS: Basophils # (auto) 0.03 K/uL (0-0.2); Basophils % (auto) 0.4 %; Eosinophils # (auto) 0.03 K/uL (0-0.5); Eosinophils % (auto) 0.4 %; Hematocrit (blood only) 38.4 % (37-47); Hemoglobin 12.7 g/dL (12.0-16.0); Immature Granulocytes # (auto) 0.01 K/uL (0.00-0.02); Immature Granulocytes % (auto) 0.1 %; Lymphocytes # (auto) 1.76 K/uL (1.2-3.4); Lymphocytes % (auto) 23.6 %; Mean Corpuscular Hgb Conc 33.1 g/dL (32-36); Mean Corpuscular Volume 89.1 fL (80-100); Mean Platelet Volume 11.5 fL (7.4-10.4); Monocytes # (auto) 0.63 K/uL (0.11-0.59); Monocytes % (auto) 8.4 %; Neutrophils # (auto) 5.01 K/uL (1.4-6.5); Neutrophils % (auto) 67.1 %; Platelet Count 269 K/uL (130-400); RDW Coefficient of Variation 15.3 % (11.5-14.5); RDW Standard Deviation 49.9 fL (36.4-46.3); Red Blood Count 4.31 M/uL (4.2-5.4); White Blood Count 7.47 K/uL (4.8-10.8)
--- NOTE | 2018-05-27 11:11 | XRay Report ---
XR chest 1V portable CLINICAL HISTORY: Chest Pain dyspnea COMPARISON STUDY: 08/12/2017 FINDINGS: Mild cardia megaly. Prior median sternotomy and valve replacement. Diaphragms are smooth. Pulmonary vasculature is somewhat prominent. This is considered chronic in this patient. IMPRESSION: Chronic pulmonary vascular congestion. Mild cardiomegaly. The above report was generated using voice recognition software. It may contain grammatical, syntax or spelling errors. Electronically signed by: Ralph Escobar M.D. 05/27/2018 11:10 AM
[2018-05-27 11:19] LABS: INR 3.3 (0.9-1.1); Prothrombin Time 31.5 Seconds (9.0-12.0)
[2018-05-27 11:26] LABS: Alanine Aminotransferase 38 U/L (12-78); Albumin Level 3.8 gm/dl (3.4-5.0); Aspartate Aminotransferase 43 U/L (15-37); BUN Creatinine Ratio 13.6 (10-20); Blood Urea Nitrogen 11 mg/dl (7-18); Calcium 9.8 mg/dl (8.5-10.1); Carbon Dioxide 26 mmol/L (21-32); Chloride 110 mmol/L (98-107); Creatinine Clr Calc Pharmacy 61.9 ml/min; Est GFR (African American) 86.7; Est GFR (Non-African American) 74.8; Glucose 107 mg/dl (70-99); Potassium 3.5 mmol/L (3.5-5.1); Sodium 142 mmol/L (136-145)
[2018-05-27 11:31] LABS: Albumin Globulin Ratio 0.8 (0.9-2); Alkaline Phosphatase 94 U/L (45-117); Bilirubin,Total 0.7 mg/dl (0.2-1); Creatine Kinase 38 U/L (26-192); Creatine Kinase MB < 1.0 ng/ml (0.5-3.6); Globulin 4.5 gm/dl (2.5-4.0); Total Protein 8.3 gm/dl (6.4-8.2); Troponin I < 0.015 ng/ml (0-0.045)
--- NOTE | 2018-05-27 12:47 | History & Physical Report ---
Date of Service May 27, 2018 Assessment & Plan (1) Paroxysmal atrial flutter: This is a 72-year-old white female who has a significant past medical history of recurrent A. fib and flutter anticoagulated on warfarin, CAD with history of CABG x3, history of mechanical AVR and MVR with history of MVR redo anticoagulated on warfarin, HTN, HLD, IBS who presents to [facility] secondary to atrial fib/flutter times 2-3 weeks. In ED ECG revealed atrial flutter with variable AV block. CBC and CMP relatively unremarkable. Troponin and CK within normal limits. Chest x-ray revealed chronic pulmonary congestion. -admit to telemetry -consult cardiology Dr. Nath, appreciate recommendations -hx of afib/aflutter prior intolerant to sotaolol, amiodarone and required prior DCCV in past. Currently tolerating tikosyn -continue warfarin with goal INR 2.5-3.5 -continue BB and tikosyn until directed from Cardiology -plan for cardioversion in a.m. (2) Pulmonary vascular congestion: -per CXR, pt also with mild lower ext edema -Lasix 20mg IV x 1 along with 40meq of KCL -monitor for response and re-eval need for further need for diuresis -daily weights, strict I and O (3) HTN (hypertension): -Blood pressure stable on metoprolol, Lasix -IV lasix 20mg x [address] Nath secondary to increased edema/pulm vasc congestion -monitor for response and re-eval in a.m. for further need for diuresis -Monitor (4) HLD (hyperlipidemia): -Continue statin (5) S/P AVR (aortic valve replacement): -Continue warfarin, INR 3.3 (6) S/P MVR (mitral valve replacement): -Continue warfarin, INR 3.3 (7) IBS (irritable bowel syndrome): -Continue Bentyl as needed (8) Prolonged Q-T interval on ECG: -Avoid QT prolonging agent, monitor ECG (9) Anticoagulation goal of INR 2.5 to 3.5: -Continue warfarin, INR 3.3 (10) DVT prophylaxis: -warfarin, scds/teds Full Code Disposition: to be determined Follow up: PCP Dr. Castañeda upon discharge as well as [facility] cardiology as appropriate Patient was seen and examined in collaboration with Dr. Fajardo, please see addendum Starting 05/28/18 patient will be under the care of Dr. Ledesma History of Present Illness Chief Complaint: Atrial fib/flutter x 2-3 weeks. Primary Care Provider: Melba Bullock DO This is a 72-year-old white female who has a significant past medical history of recurrent A. fib and flutter anticoagulated on warfarin, CAD with history of CABG x3, history of mechanical AVR and MVR with history of MVR redo anticoagulated on warfarin, HTN, HLD, IBS who presents to [facility] secondary to atrial fib/flutter times 2-3 weeks. is at bedside. Patient notes over the past 2-3 weeks her heart rate has been, "all over the place." She has been persistently in atrial fibrillation flutter for the past 1 week. While in arrhythmia she feels left-sided chest discomfort, shortness of breath, dizziness, lightheadedness, palpitations. She also notes, "congestion in her chest," and increased swelling in her bilateral lower extremities despite taking Lasix. She has not noticed any significant weight gain. She denies any recent illness, fever, chills, sweats, syncope, cough, hemoptysis, nausea, vomiting, dysuria, hematuria, increased urgency or frequency with urination. Patient does have abdominal discomfort as well as off-and-on diarrhea but this is secondary to her IBS. Her appetite has been normal. Patient did see her locomotive oiler PA on 05/12 secondary to above symptoms in which Holter monitor had been ordered 05/31. There was question whether she may benefit from PPM to titrate beta-natacha as opposed to AV damon ablation. She also follow-up with PCP on 05/19 Dr. Bullock secondary to above symptoms. For further details of patient's cardiac history: Rheumatic heart disease, on March 04, 2002 patient underwent aortic valve replacement and mitral valve replacement along with CABG x3 with a KIRK to the LAD, right internal mammary artery anastomosis as a free graft to the RCA and a single saphenous vein graft to the diagonal coronary artery and radiofrequency ablation of atrial fibrillation pathways at [facility]. 01/2011 admitted to [facility] secondary to symptomatically A. fib flutter which patient underwent DCCV. Sotalol was started but stopped due to intolerance secondary to nausea and bradycardia. July 2011 Tikosyn loading and successful repeat DCCV. 01/08/12 underwent cardiac catheterization at [facility] and remained on warfarin. Noted to have single-vessel disease 70% mid LAD, 2 of the 3 bypasses were patent. There was obstruction of the SVG to diagonal however, the [place] diagonal had no significant obstruction. 12/24/12 hospitalized at [facility] and underwent redo of mechanical MVR By Dr. Manley. Postop day flutter noted. Tikosyn was discontinued and sent home on amiodarone and metoprolol. 05/3015 admitted to [facility] secondary to symptomatically flutter and tikosyn re-initiated. 11/2015 admitted to [facility] secondary to recurrent symptomatic paroxysmal atrial flutter with RVR, status post DCCV. Allergies Allergy/AdvReac Type Severity Reaction Status Date / Time Sulfa (Sulfonamide Allergy Intermediate Rash, hives Verified 05/27/18 12:41 Antibiotics) lidocaine Allergy Unknown HIVES Verified 05/27/18 12:41 levothyroxine AdvReac Intermediate TACHYCARDIA Unverified 05/27/18 12:41 Latex2 -Systemic Allergic Allergy Unknown WHEEZING Uncoded 05/27/18 12:41 Response Home Medications Home Medications Medication Instructions Recorded Confirmed Type Benefiber Capsules 1 cap PO TID 05/27/18 05/27/18 History aspirin [Aspir-81] 81 mg PO QAM 05/27/18 05/27/18 History atorvastatin 20 mg PO Q OTHER DAY 05/27/18 05/27/18 History dicyclomine 20 mg PO QID PRN 05/27/18 05/27/18 History dofetilide 125 mcg PO Q12H 05/27/18 05/27/18 History furosemide 20 mg PO Q OTHER DAY 05/27/18 05/27/18 History metoprolol tartrate 12.5 mg PO HS 05/27/18 05/27/18 History metoprolol tartrate 25 mg PO QAM 05/27/18 05/27/18 History nitroglycerin [Nitrostat] 0.4 mg SUBLINGUAL UD 05/27/18 05/27/18 History omeprazole 20 mg PO QAM 05/27/18 05/27/18 History sertraline 50 mg PO QAM 05/27/18 05/27/18 History warfarin 2 mg PO 3XWK 05/27/18 05/27/18 History warfarin 3 mg PO 4XWK 05/27/18 05/27/18 History Past Med/Surg History Medical History IBS (irritable bowel syndrome) (Chronic) Paroxysmal atrial flutter (Chronic) CAD (coronary artery disease) (Chronic) Rheumatic heart disease, on March 04, 2002 patient underwent aortic valve replacement and mitral valve replacement along with CABG x3 with a KIRK to the LAD, right internal mammary artery anastomosis as a free graft to the RCA and a single saphenous vein graft to the diagonal coronary artery and radiofrequency ablation of atrial fibrillation pathways at [facility]. 01/2011 admitted to [facility] secondary to symptomatically A. fib flutter which patient underwent DCCV. Sotalol was started but stopped due to intolerance secondary to nausea and bradycardia. July 2011 Tikosyn loading and successful repeat DCCV. 01/08/12 underwent cardiac catheterization at [facility] and remained on warfarin. Noted to have single-vessel disease 70% mid LAD, 2 of the 3 bypasses were patent. There was obstruction of the SVG to diagonal however, the [place] diagonal had no significant obstruction. 12/24/12 hospitalized at [facility] and underwent redo of mechanical MVR By Dr. Manley. Postop day flutter noted. Tikosyn was discontinued and sent home on amiodarone and metoprolol. 05/3015 admitted to [facility] secondary to symptomatically flutter and tikosyn re-initiated. 11/2015 admitted to [facility] secondary to recurrent symptomatic paroxysmal atrial flutter with RVR, status post DCCV. Anticoagulation goal of INR 2.5 to 3.5 (Chronic) CKD (chronic kidney disease), stage II (Chronic) HTN (hypertension) (Chronic) HLD (hyperlipidemia) (Chronic) Liver cirrhosis secondary to BROWNE (Chronic) Hypothyroidism (Chronic) Rheumatic heart disease (Resolved) Atrial flutter (Acute) CAD (coronary artery disease) (Chronic) Surgical History History of cholecystectomy (Chronic) History of bilateral breast reduction surgery (Chronic) History of partial thyroidectomy (Chronic) S/P AVR (aortic valve replacement) (Chronic) "Mechanical 2002 replace aortic valve 2012 - [facility] - Dr Manley" On 05/25/15 15:41 Mel Quevedo wrote "Mechanical 2002" S/P MVR (mitral valve replacement) (Chronic) "Mechanical 2002" S/P CABG (coronary artery bypass graft) (Chronic) S/P NELLY (total abdominal hysterectomy) (Chronic) removal of L ovary S/P cholecystectomy (Chronic) H/O esophagogastroduodenoscopy (Chronic) Hx of appendectomy (Chronic) History of cholecystectomy (Resolved) Hx of CABG (Resolved) Hx of appendectomy (Resolved) Family History Mother Colorectal cancer Social History Preferred Language: [place] Communication Ability: Effective Procedural Nurse Required: No Beliefs That Will Affect Care: None Current Living Situation: Spouse Other Information That Helps Us Care for You: No Feels Safe at Home: Yes Safety Concerns: Feels Safe At This Time Smoking Status: Never smoker Hx Alcohol Use: No Hx Substance Use: No Review of Systems All systems reviewed & are unremarkable except as noted in HPI & below Physical Exam Vital Signs (Past 24 Hours): Last Vital Signs Temp 36.8 C 05/27/18 11:58 Pulse 89 05/27/18 11:58 Resp 20 05/27/18 11:58 BP 133/70 05/27/18 11:58 Pulse Ox 97 05/27/18 11:58 Physical Exam: Gen: WD/WN, F, NAD, sitting up in bed, pleasant, conversing easily Head: Normocephalic, Atraumatic Eyes: Sclera normal, no conjunctival injection, PERRLA, EOMI ENT: Gross hearing intact, normal pharynx, mucous membranes moist Neck: supple, no adenopathy, No JVD, no bruit, Resp: Clear to auscultation b/l, no wheeze, rales, rhonchi. Normal insp/exp effort, no accessory muscle use CV: Irregular rate, irregular rhythm, mechanical valve click noted, no murmur, rub, gallop, Abd: +BS x 4, soft, nontender, nondistended Musculoskeletal: moves extremities active rom x 4, strength intact, good seismograph recorder strength Extremities: Trace to +1 bilateral pretibial edema Skin: warm, moist, no rash, negative turgor, cap refill < 2sec Neuro: Alert and oriented x 3, speech normal, good mood/affect, cran nerve 2-12 intact grossly : deferred Results & Data Laboratory Results Short CBC 05/27/18 Range/Units 10:50 WBC 7.47 (4.8-10.8) K/uL Hgb 12.7 (12.0-16.0) g/dL Hct 38.4 (37-47) % Plt Count 269 (130-400) K/uL BMP 05/27/18 10:50 Sodium 142 Potassium 3.5 Chloride 110 H Carbon Dioxide 26 BUN 11 Creatinine 0.79 Glucose 107 H Calcium 9.8 Cardiac Enzymes 05/27/18 Range/Units 10:50 Total Creatine Kinase 38 (26-192) U/L CK-MB (CK-2) < 1.0 (0.5-3.6) ng/ml Troponin I < 0.015 (0-0.045) ng/ml Liver Function 05/27/18 Range/Units 10:50 Total Bilirubin 0.7 (0.2-1) mg/dl AST 43 H (15-37) U/L ALT 38 (12-78) U/L Alkaline Phosphatase 94 (45-117) U/L Albumin 3.8 (3.4-5.0) gm/dl Diagnostic Findings CXR: IMPRESSION: Chronic pulmonary vascular congestion. Mild cardiomegaly. ECG Rate (beats per minute): 78 Rhythm: atrial flutter Findings: + prolonged QT (QTC 503ms) Code Status & VTE Plan Code Status Full code VTE Prophylaxis Plan VTE Prophylaxis will be ordered: Yes Supervising Physician Co-Signing Physician Notes HISTORY: Record reviewed. Patient interviewed and examined. Care coordinated with Flora Salter PA-C. Please refer to her documentation for patient's history. Briefly, 72 YO F with history of ischemic heart disease, vavlular heart disease s/p mech AVR + MVR, and atrial flutter. Atrial flutter had recently been controlled with dofetilide + metoprolol, but developed palpitations, dyspnea on exertion, lightheadness. EXAM: General- no distress Lungs- clear to auscultation; no respiratory distress Cardiovascular- irregular rhythm; mechanical valve sounds in aortic and mitral positions; no JVD; trace pretibial edema Abdomen- + bowel sounds, soft, nontender Extremities- no cyanosis; no calf tenderness Neuro- alert, oriented Skin- warm & dry DATA: INR 3.3. Potassium 3.5. BUN 11. Creat 0.79. Other lab studies as noted. Chest x-ray demonstrated postsurgical changes, cardiomegaly, pulmonary vascular congestion. EKG performed at 1023 reviewed and demonstrated atrial flutter with variable conduction, ventricular rate at 80 / minute, occasional PVC, NSSTTWA's. ASSESSMENT AND PLAN: Recurrent atrial flutter with variable conduction. Continue dofetilide, metoprolol, warfarin. Further management per Cardiology. Please refer to DAYSI Salter's documentation for discussion of other issues. (1) HLD (hyperlipidemia) Hyperlipidemia type: unspecified Qualified Code(s): E78.5 - Hyperlipidemia, unspecified (2) HTN (hypertension) Hypertension type: essential hypertension Qualified Code(s): I10 - Essential (primary) hypertension (3) IBS (irritable bowel syndrome) Irritable bowel syndrome type: with diarrhea Qualified Code(s): K58.0 - Irritable bowel syndrome with diarrhea
[2018-05-27] MEDS ORDERED: ACETAMINOPHEN 325 MG TAB PO PRN (13:45)
[2018-05-27] MEDS ORDERED: ALUMINUM/MAGNESIUM SUSP 30 ML UDC PO PRN (13:45)
[2018-05-27] MEDS ORDERED: POLYETHYLENE (MIRALAX) 17 GM PACK PO PRN (13:45)
[2018-05-27] MEDS ORDERED: MAGNESIUM HYDROXIDE SUSP 30 ML UDC PO PRN (13:45)
--- NOTE | 2018-05-27 13:59 | Emergency Department Note ---
Entered by Susan Denny acting as a scribe for Maximino Marie MD History of Present Illness General Chief complaint: Arrhythmia/Palpitations Stated complaint: HEART PROBLEMS POSSIBLE AFIB HX OF HEART PROB Time Seen by Provider: 05/27/18 10:37 Source: patient History of Present Illness Provider complaint: irregular heart beat Onset (ago): week(s) 2 Location: chest Pain Consistency: + other (worsening) Maximum Pain Intensity: 4 Quality: + other (irregular heart beat) Associated symptoms: + chest pain and + cough The patient is a 72 year old female who presents to the Emergency Room with complaints of a worsening irregular heart beat over the last 2 weeks. She states that she saw Dr. Jonas 3 weeks ago. The patient reports a history of 2 mechanical valves and CHF. The patient does report having some chest pain but states that she has had pain like this before. The patient also reports that she has been coughing. She states that she is on Coumadin. Home Medications Home Medications Medication Instructions Recorded Confirmed Type Benefiber Capsules 1 cap PO TID 05/27/18 05/27/18 History aspirin [Aspir-81] 81 mg PO QAM 05/27/18 05/27/18 History atorvastatin 20 mg PO Q OTHER DAY 05/27/18 05/27/18 History dicyclomine 20 mg PO QID PRN 05/27/18 05/27/18 History dofetilide 125 mcg PO Q12H 05/27/18 05/27/18 History furosemide 20 mg PO Q OTHER DAY 05/27/18 05/27/18 History metoprolol tartrate 12.5 mg PO HS 05/27/18 05/27/18 History metoprolol tartrate 25 mg PO QAM 05/27/18 05/27/18 History nitroglycerin [Nitrostat] 0.4 mg SUBLINGUAL UD 05/27/18 05/27/18 History omeprazole 20 mg PO QAM 05/27/18 05/27/18 History sertraline 50 mg PO QAM 05/27/18 05/27/18 History warfarin 2 mg PO 3XWK 05/27/18 05/27/18 History warfarin 3 mg PO 4XWK 05/27/18 05/27/18 History Allergies Allergy/AdvReac Type Severity Reaction Status Date / Time Sulfa (Sulfonamide Allergy Intermediate Rash, hives Verified 05/27/18 12:41 Antibiotics) lidocaine Allergy Unknown HIVES Verified 05/27/18 12:41 levothyroxine AdvReac Intermediate TACHYCARDIA Unverified 05/27/18 12:41 Latex2 -Systemic Allergic Allergy Unknown WHEEZING Uncoded 05/27/18 12:41 Response Past Med/Surg History Medical History IBS (irritable bowel syndrome) (Chronic) Paroxysmal atrial flutter (Chronic) CAD (coronary artery disease) (Chronic) Rheumatic heart disease, on March 04, 2002 patient underwent aortic valve replacement and mitral valve replacement along with CABG x3 with a KIRK to the LAD, right internal mammary artery anastomosis as a free graft to the RCA and a single saphenous vein graft to the diagonal coronary artery and radiofrequency ablation of atrial fibrillation pathways at [facility]. 01/2011 admitted to [facility] secondary to symptomatically A. fib flutter which patient underwent DCCV. Sotalol was started but stopped due to intolerance secondary to nausea and bradycardia. July 2011 Tikosyn loading and successful repeat DCCV. 01/08/12 underwent cardiac catheterization at [facility] and remained on warfarin. Noted to have single-vessel disease 70% mid LAD, 2 of the 3 bypasses were patent. There was obstruction of the SVG to diagonal however, the enterprise diagonal had no significant obstruction. 12/24/12 hospitalized at [facility] and underwent redo of mechanical MVR By Dr. Manley. Postop day flutter noted. Tikosyn was discontinued and sent home on amiodarone and metoprolol. 05/3015 admitted to [facility] secondary to symptomatically flutter and tikosyn re-initiated. 11/2015 admitted to [facility] secondary to recurrent symptomatic paroxysmal atrial flutter with RVR, status post DCCV. Anticoagulation goal of INR 2.5 to 3.5 (Chronic) CKD (chronic kidney disease), stage II (Chronic) HTN (hypertension) (Chronic) HLD (hyperlipidemia) (Chronic) Liver cirrhosis secondary to BROWNE (Chronic) Hypothyroidism (Chronic) Rheumatic heart disease (Resolved) Atrial flutter (Acute) CAD (coronary artery disease) (Chronic) Surgical History History of cholecystectomy (Chronic) History of bilateral breast reduction surgery (Chronic) History of partial thyroidectomy (Chronic) S/P AVR (aortic valve replacement) (Chronic) "Mechanical 2002 replace aortic valve 2012 - [facility] - Dr Manley" On 05/25/15 15:41 Mel Quevedo wrote "Mechanical 2002" S/P MVR (mitral valve replacement) (Chronic) "Mechanical 2002" S/P CABG (coronary artery bypass graft) (Chronic) S/P NELLY (total abdominal hysterectomy) (Chronic) removal of L ovary S/P cholecystectomy (Chronic) H/O esophagogastroduodenoscopy (Chronic) Hx of appendectomy (Chronic) History of cholecystectomy (Resolved) Hx of CABG (Resolved) Hx of appendectomy (Resolved) Social History Preferred Language: Tuvaluan Communication Ability: Effective Hammer Driver Required: No Beliefs That Will Affect Care: None Current Living Situation: Spouse Other Information That Helps Us Care for You: No Feels Safe at Home: Yes Safety Concerns: Feels Safe At This Time Smoking Status: Never smoker Hx Alcohol Use: No Hx Substance Use: No Review of Systems See HPI for pertinent positives & negatives. and A total of 10 systems reviewed and were otherwise negative Physical Exam Vital Signs Vital Signs - 24 hr 05/27/18 10:16 05/27/18 11:02 05/27/18 11:57 Temperature 36.8 C Temperature Source Oral Sepsis Recent Fever Within 48 Hours No Sepsis Action Taken by Nursing No Action Required Pulse Rate 85 85 67 Pulse Rate [Apical] Pulse Rate from SpO2 Sensor 74 Pulse Rhythm Regular Regular Pulse Rhythm [Apical] Pulse Strength Normal Pulse Strength [Apical] Respiratory Rate 20 20 24 Respiratory Effort / Characteristics Non-Labored Spontaneous Respiratory Depth Normal Respiratory Pattern Regular Blood Pressure 133/77 133/70 Blood Pressure [Left Arm] Blood Pressure Mean 95 91 Blood Pressure Mean [Left Arm] Pulse Oximetry 97 97 96 Oxygen Delivery Method Room Air Room Air Room Air 05/27/18 11:58 05/27/18 12:01 05/27/18 13:14 Temperature 36.8 C Temperature Source Oral Sepsis Recent Fever Within 48 Hours Sepsis Action Taken by Nursing Pulse Rate 87 68 Pulse Rate [Apical] 89 Pulse Rate from SpO2 Sensor 82 74 Pulse Rhythm Pulse Rhythm [Apical] Regular Pulse Strength Pulse Strength [Apical] Normal Respiratory Rate 20 22 18 Respiratory Effort / Characteristics Non-Labored Spontaneous Respiratory Depth Normal Respiratory Pattern Regular Blood Pressure 124/60 116/54 L Blood Pressure [Left Arm] 133/70 Blood Pressure Mean 81 74 Blood Pressure Mean [Left Arm] 91 Pulse Oximetry 97 98 98 Oxygen Delivery Method Room Air Room Air Room Air 05/27/18 13:18 Temperature Temperature Source Sepsis Recent Fever Within 48 Hours Sepsis Action Taken by Nursing Pulse Rate 68 Pulse Rate [Apical] Pulse Rate from SpO2 Sensor Pulse Rhythm Pulse Rhythm [Apical] Pulse Strength Pulse Strength [Apical] Respiratory Rate 18 Respiratory Effort / Characteristics Respiratory Depth Respiratory Pattern Blood Pressure 116/54 L Blood Pressure [Left Arm] Blood Pressure Mean Blood Pressure Mean [Left Arm] Pulse Oximetry 98 Oxygen Delivery Method Room Air GENERAL: Awake, alert, well-appearing, in no distress HENT: Normocephalic, atraumatic. Oropharynx unremarkable. EYES: Normal conjunctiva. Sclera non-icteric. NECK: Supple. No nuchal rigidity. FROM. No masses. RESPIRATORY: Clear to auscultation. No wheezes. No rales. Normal respiratory effort. CARDIAC: Normal rate. Normal rhythm. No murmurs. No rubs. Extremities warm and well perfused. Pulses equal. No JVD. GI: Soft, non-distended. No tenderness to palpation. No rebound or guarding. No masses. RECTAL: Deferred. MUSCULOSKELETAL: Atraumatic. Chest examination reveals no tenderness. The back is symmetrical on inspection without obvious abnormality. There is no CVA tenderness to palpation. No joint edema. LOWER EXTREMITIES: Calves are equal size bilaterally and non-tender. No edema. No discoloration. NEURO: Normal sensorium. No sensory or motor deficits noted. Course 1057: Past medical records reviewed. The patient was evaluated in room D4B, and a complete history and physical examination were performed. 1118: I discussed the patient's case with Dr. Diaz who said to admit the patient. 1122: I discussed the patient's case with Brianne Sharif who will evaluate the patient for further management. 1124: I updated the patient who verbalized agreement and understanding of the t reatment plan. Consultations Consultation #1: Dr. Diaz Time: 11:18 Consultation #2: Brianne Sharif Time: 11:22 Medical Decision Making Differential Diagnosis Differential diagnosis: Etiologies such as shingles, musculoskeletal pain, pericarditis, myocarditis, cardiac ischemia, pericardial tamponade, pneumonia, pneumothorax, pleural effusion, hemothorax, pleurisy, aortic pathology, pulmonary embolism, intra- abdominal process, as well as others were considered. Medical Records Attestation: I reviewed the patient's medical records. Home Medications Current Medication List: was personally reviewed by me Laboratory Data Attestation: I reviewed the patient's lab results. Result diagrams: 05/27/18 10:50 05/27/18 10:50 Lab Results 05/27/18 05/27/18 05/27/18 Range/Units 10:50 10:50 10:50 WBC 7.47 (4.8-10.8) K/uL RBC 4.31 (4.2-5.4) M/uL Hgb 12.7 (12.0-16.0) g/dL Hct 38.4 (37-47) % MCV 89.1 (80-100) fL MCH 29.5 (25-34) pg MCHC 33.1 (32-36) g/dL RDW Std Deviation 49.9 H (36.4-46.3) fL RDW Coeff of Tammi 15.3 H (11.5-14.5) % Plt Count 269 (130-400) K/uL MPV 11.5 H (7.4-10.4) fL Immature Gran % (Auto) 0.1 % Neut % (Auto) 67.1 % Lymph % (Auto) 23.6 % [place] % (Auto) 8.4 % Eos % (Auto) 0.4 % Baso % (Auto) 0.4 % Immature Gran # (Auto) 0.01 (0.00-0.02) K/uL Neut # (Auto) 5.01 (1.4-6.5) K/uL Lymph # (Auto) 1.76 (1.2-3.4) K/uL [place] # (Auto) 0.63 H (0.11-0.59) K/uL Eos # (Auto) 0.03 (0-0.5) K/uL Baso # (Auto) 0.03 (0-0.2) K/uL PT 31.5 H (9.0-12.0) Seconds INR 3.3 H (0.9-1.1) Sodium 142 (136-145) mmol/L Potassium 3.5 (3.5-5.1) mmol/L Chloride 110 H (98-107) mmol/L Carbon Dioxide 26 (21-32) mmol/L Anion Gap 6.0 (3-11) BUN 11 (7-18) mg/dl Creatinine 0.79 (0.6-1.2) mg/dl Est Cr Clr Drug Dosing 61.9 ml/min Est GFR ( Amer) 86.7 Est GFR (Non-Af Amer) 74.8 BUN/Creatinine Ratio 13.6 (10-20) Glucose 107 H (70-99) mg/dl Calcium 9.8 (8.5-10.1) mg/dl Total Bilirubin 0.7 (0.2-1) mg/dl AST 43 H (15-37) U/L ALT 38 (12-78) U/L Alkaline Phosphatase 94 (45-117) U/L Total Creatine Kinase 38 (26-192) U/L CK-MB (CK-2) < 1.0 (0.5-3.6) ng/ml CK/CKMB % Calc TNP Troponin I < 0.015 (0-0.045) ng/ml Total Protein 8.3 H (6.4-8.2) gm/dl Albumin 3.8 (3.4-5.0) gm/dl Globulin 4.5 H (2.5-4.0) gm/dl Albumin/Globulin Ratio 0.8 L (0.9-2) Lipase 124 (73-393) U/L Imaging Data Radiologist's Impression: Radiology results as stated below per my review and the radiologist's interpretation: XR chest 1V portable CLINICAL HISTORY: Chest Pain dyspnea COMPARISON STUDY: 08/12/2017 FINDINGS: Mild cardia megaly. Prior median sternotomy and valve replacement. Diaphragms are smooth. Pulmonary vasculature is somewhat prominent. This is considered chronic in this patient. IMPRESSION: Chronic pulmonary vascular congestion. Mild cardiomegaly. The above report was generated using voice recognition software. It may contain grammatical, syntax or spelling errors. Electronically signed by: Ralph Escobar M.D. 05/27/2018 11:10 AM ECG Data Attestation: I personally reviewed and interpreted this ECG as follows: Indication: chest pain Rate (beats per minute): 78 Rhythm: atrial flutter and other (variable AV block) Findings: + other (old septal infarct) and + PVC Change: the following changes noted (new atrial flutter compared to numerous old) Blood Pressure Blood Pressure Findings: Normal blood pressure MDM Narrative This is a 72-year-old female who presents emergency department complaining of new heart palpitations. The patient appears to be in a rate control atrial flutter. She is fairly complicated. She is on Coumadin. Her INR was found to be therapeutic. I did discuss the case with the cardiology service who asked that the patient be admitted to the hospitalist. Patient was in agreement with the treatment plan. Impression & Plan New onset atrial flutter, Chest pain Discharge Plan Visit Data Chief Complaint: Arrhythmia/Palpitations Stated Complaint: HEART PROBLEMS POSSIBLE AFIB HX OF HEART PROB ED Provider: Maximino Marie Discharge Problem: New onset atrial flutter, Chest pain Patient Disposition: Being Evaluated by Hospitalist Discharge Instructions Interventions: ED Discharge Assessment Last Done: 05/27/18 13:18 The goyo's documentation has been prepared under my direction and personally reviewed by me in its entirety. I confirm that the note above accurately reflects all work, treatment, procedures, and medical decision making performed by me.
--- NOTE | 2018-05-27 14:01 | Cardiology Consultation ---
Date of Consultation May 27, 2018 Assessment & Plan (1) S/P AVR (aortic valve replacement): (2) S/P MVR (mitral valve replacement): (3) S/P CABG (coronary artery bypass graft): (4) Afib: (5) Rheumatic heart disease: (6) Atrial flutter: The patient has a complex history of atrial arrhythmias. She has been followed by the EP service at [facility] as well as Dr. Almeida through our clinic. She has been anticoagulated and her INR is therapeutic. The patient will be made n.p.o. after midnight with anticipation of cardioversion potentially tomorrow if she does not spontaneously we convert to sinus mechanism overnight. She has some crackles in her lungs and her chest x- ray suggest mild congestive heart failure. I will give her 1 dose of IV Lasix now along with potassium. Further evaluation and treatment following the above. History of Present Illness Attending Physician: Ulices Ledesma MD History of Present Illness This is a 72-year-old female with a complex cardiac history listed below. She has had difficulty with atrial arrhythmias and has been on different medications. She is usually followed by Dr. Grossman through our clinic. More recently she has been on dofetilide with some success. Over the past 24 hours however, she has noticed some tachypnea and heart palpitations. She presented to the emergency department and has been found to be in atrial flutter. According to the patient and her she was having high heart rates but now she is in a variable rate 70-80 bpm. Past medical history: 1.History of complex rheumatic heart disease, with mechanical aortic valve replacement and mechanical mitral valve replacement -in 2002 she underwent her initial cardiac surgery with aortic valve replacement utilizing a 21 millimeter [employer] mechanical prosthesis as well as a 31 millimeter [employer] mechanical mitral valve prosthesis and CABG x3 at [facility]. -she underwent redo mechanical aortic valve replacement in November, for prosthetic aortic valve stenosis 2. Recurrent atrial fibrillation, atrial flutter, requiring multiple cardioversions and ongoing therapy with metoprolol and dofetilide. Dose of AV damon blockers and anti arrhythmic medications has been limited due to bradycardia 3. Past unsuccessful treatment with sotalol due to bradycardia 4. Amiodarone intolerance 5. History of mild QT prolongation on dofetilide 125 milligrams twice daily 6. Coronary heart disease, with dyslipidemia Allergies Allergy/AdvReac Type Severity Reaction Status Date / Time Sulfa (Sulfonamide Allergy Intermediate Rash, hives Verified 05/27/18 12:41 Antibiotics) lidocaine Allergy Unknown HIVES Verified 05/27/18 12:41 levothyroxine AdvReac Intermediate TACHYCARDIA Unverified 05/27/18 12:41 Latex2 -Systemic Allergic Allergy Unknown WHEEZING Uncoded 05/27/18 12:41 Response Home Medications Home Medications Medication Instructions Recorded Confirmed Type Benefiber Capsules 1 cap PO TID 05/27/18 05/27/18 History aspirin [Aspir-81] 81 mg PO QAM 05/27/18 05/27/18 History atorvastatin 20 mg PO Q OTHER DAY 05/27/18 05/27/18 History dicyclomine 20 mg PO QID PRN 05/27/18 05/27/18 History dofetilide 125 mcg PO Q12H 05/27/18 05/27/18 History furosemide 20 mg PO Q OTHER DAY 05/27/18 05/27/18 History metoprolol tartrate 12.5 mg PO HS 05/27/18 05/27/18 History metoprolol tartrate 25 mg PO QAM 05/27/18 05/27/18 History nitroglycerin [Nitrostat] 0.4 mg SUBLINGUAL UD 05/27/18 05/27/18 History omeprazole 20 mg PO QAM 05/27/18 05/27/18 History sertraline 50 mg PO QAM 05/27/18 05/27/18 History warfarin 2 mg PO 3XWK 05/27/18 05/27/18 History warfarin 3 mg PO 4XWK 05/27/18 05/27/18 History Patient History Medical History IBS (irritable bowel syndrome) (Chronic) Paroxysmal atrial flutter (Chronic) CAD (coronary artery disease) (Chronic) Rheumatic heart disease, on March 04, 2002 patient underwent aortic valve replacement and mitral valve replacement along with CABG x3 with a KIRK to the LAD, right internal mammary artery anastomosis as a free graft to the RCA and a single saphenous vein graft to the diagonal coronary artery and radiofrequency ablation of atrial fibrillation pathways at [facility]. 01/2011 admitted to [facility] secondary to symptomatically A. fib flutter which patient underwent DCCV. Sotalol was started but stopped due to intolerance secondary to nausea and bradycardia. July 2011 Tikosyn loading and successful repeat DCCV. 01/08/12 underwent cardiac catheterization at [facility] and remained on warfarin. Noted to have single-vessel disease 70% mid LAD, 2 of the 3 bypasses were patent. There was obstruction of the SVG to diagonal however, the [place] diagonal had no significant obstruction. 12/24/12 hospitalized at [facility] and underwent redo of mechanical MVR By Dr. Manley. Postop day flutter noted. Tikosyn was discontinued and sent home on amiodarone and metoprolol. 05/3015 admitted to [facility] secondary to symptomatically flutter and tikosyn re-initiated. 11/2015 admitted to [facility] secondary to recurrent symptomatic paroxysmal atrial flutter with RVR, status post DCCV. Anticoagulation goal of INR 2.5 to 3.5 (Chronic) CKD (chronic kidney disease), stage II (Chronic) HTN (hypertension) (Chronic) HLD (hyperlipidemia) (Chronic) Liver cirrhosis secondary to BROWNE (Chronic) Hypothyroidism (Chronic) Rheumatic heart disease (Resolved) Atrial flutter (Acute) CAD (coronary artery disease) (Chronic) Surgical History History of cholecystectomy (Chronic) History of bilateral breast reduction surgery (Chronic) History of partial thyroidectomy (Chronic) S/P AVR (aortic valve replacement) (Chronic) "Mechanical 2002 replace aortic valve 2012 - [facility] - Dr Manley" On 05/25/15 15:41 Mel Quevedo wrote "Mechanical 2002" S/P MVR (mitral valve replacement) (Chronic) "Mechanical 2002" S/P CABG (coronary artery bypass graft) (Chronic) S/P NELLY (total abdominal hysterectomy) (Chronic) removal of L ovary S/P cholecystectomy (Chronic) H/O esophagogastroduodenoscopy (Chronic) Hx of appendectomy (Chronic) History of cholecystectomy (Resolved) Hx of CABG (Resolved) Hx of appendectomy (Resolved) Family History Mother Colorectal cancer Social History Preferred Language: Bulgarian Communication Ability: Effective Quality Assurance Assistant Required: No Beliefs That Will Affect Care: None Current Living Situation: Spouse Other Information That Helps Us Care for You: No Feels Safe at Home: Yes Safety Concerns: Feels Safe At This Time Smoking Status: Never smoker Hx Alcohol Use: No Hx Substance Use: No Review of Systems Review of Systems: See HPI for pertinent positives. All other 10 point review of systems are negative. Physical Exam Vital Signs (Past 24 Hours): Last Vital Signs Temp 36.8 C 05/27/18 11:58 Pulse 68 05/27/18 13:18 Resp 18 05/27/18 13:18 BP 116/54 L 05/27/18 13:18 Pulse Ox 98 05/27/18 13:18 Physical Exam: General: no acute distress and stated age Head: normocephalic, no masses, lesions, tenderness or abnormalities Eyes: conjunctiva are pink and non-injected, sclera clear Neck: supple, no adenopathy, no bruits, normal jugular venous pulse, no hepatojugular reflux Chest: normal shape and normal respiratory effort Lungs: Diffuse fine crackles Cardiac Exam: - irregular rate & rhythm, no murmurs gallops or rubs - normal S1, mechanical S2 Pulses: 2(+) throughout Abdomen: abdomen soft, non-tender, no abnormal masses and no hepatosplenomegaly Musculoskeletal: no gait disturbance, no joint inflammation, no deforming arthritis Extremities: no edema and no cyanosis Neuro: grossly normal exam Results & Data Laboratory Results Laboratory Results - last 24 hr 05/27/18 05/27/18 05/27/18 10:50 10:50 10:50 WBC 7.47 RBC 4.31 Hgb 12.7 Hct 38.4 MCV 89.1 MCH 29.5 MCHC 33.1 RDW Std Deviation 49.9 H RDW Coeff of Tammi 15.3 H Plt Count 269 MPV 11.5 H Immature Gran % (Auto) 0.1 Neut % (Auto) 67.1 Lymph % (Auto) 23.6 [place] % (Auto) 8.4 Eos % (Auto) 0.4 Baso % (Auto) 0.4 Immature Gran # (Auto) 0.01 Neut # (Auto) 5.01 Lymph # (Auto) 1.76 [place] # (Auto) 0.63 H Eos # (Auto) 0.03 Baso # (Auto) 0.03 PT 31.5 H INR 3.3 H Sodium 142 Potassium 3.5 Chloride 110 H Carbon Dioxide 26 Anion Gap 6.0 BUN 11 Creatinine 0.79 Est Cr Clr Drug Dosing 61.9 Est GFR ( Amer) 86.7 Est GFR (Non-Af Amer) 74.8 BUN/Creatinine Ratio 13.6 Glucose 107 H Calcium 9.8 Total Bilirubin 0.7 AST 43 H ALT 38 Alkaline Phosphatase 94 Total Creatine Kinase 38 CK-MB (CK-2) < 1.0 CK/CKMB % Calc TNP Troponin I < 0.015 Total Protein 8.3 H Albumin 3.8 Globulin 4.5 H Albumin/Globulin Ratio 0.8 L Lipase 124 Medications Administered Current Inpatient Medications Acetaminophen (Tylenol) 650 mg PO Q4H PRN PRN Reason: Pain or Fever Stop: 06/26/18 13:44 Al Hydrox/Mg Hydrox/Simethicone (Maalox) 15 ml PO Q4H PRN PRN Reason: Dyspepsia Stop: 06/26/18 13:44 Aspirin (Ecotrin Ectab) 81 mg PO QAM [facility] Stop: 06/27/18 08:59 Atorvastatin Calcium (Lipitor) 20 mg PO Q48H [facility] Stop: 06/27/18 20:59 Dofetilide (Tikosyn) 125 mcg PO BID [facility] Stop: 06/26/18 20:59 Furosemide (Lasix) 20 mg PO Q48H [facility] Stop: 06/27/18 08:59 Furosemide 20 mg/ Syringe 2 mls @ 4 mls/min IV ONE ONE Stop: 05/27/18 15:01 Magnesium Hydroxide (Milk Of Magnesia) 30 ml PO Q12H PRN PRN Reason: Constipation Stop: 06/26/18 13:44 Metoprolol Tartrate (Lopressor) 12.5 mg PO HS [facility] Stop: 06/26/18 20:59 Metoprolol Tartrate (Lopressor) 25 mg PO QAM [facility] Stop: 06/27/18 08:59 Nitroglycerin (Nitrostat) 0.4 mg SL UD PRN PRN Reason: Chest Pain Stop: 06/26/18 10:59 Pantoprazole Sodium (Protonix) 40 mg PO QAM [facility] Stop: 06/27/18 08:59 Polyethylene Glycol (Miralax Powder Packet) 17 gm PO DAILY PRN PRN Reason: Constipation Stop: 06/26/18 13:44 Sertraline HCl (Zoloft) 50 mg PO QAM [facility] Stop: 06/27/18 08:59 Warfarin Sodium (Coumadin) 2 mg PO [id number] [facility] Stop: 06/27/18 15:59 Warfarin Sodium (Coumadin) 3 mg PO [id number] [facility] Stop: 06/26/18 15:59
[2018-05-27] MEDS ORDERED: DICYCLOMINE HCL 20 MG TAB PO PRN (14:14)
[2018-05-27] MEDS ORDERED: POTASSIUM CHLORIDE 20 MEQ TABCR PO STA (14:46)
[2018-05-27] MEDS ORDERED: FUROSEMIDE 20 MG in SYRINGE 0 ML IV ONE (15:00)
[2018-05-27] MEDS ORDERED: WARFARIN SOD 3 MG TAB PO SCH (16:00)
[2018-05-27] MEDS ORDERED: PNEUMOCOCCAL POLYSACCHARIDES 25 MCG/0.5 ML VIAL/SYR IM ONE (16:00)
[2018-05-27] MEDS ORDERED: PNEUMOCOCCAL ADMINISTRATION CHARGE ONE (16:00)
[2018-05-27] MEDS: DOFETILIDE 125 MCG CAPSULE PO SCH (20:05)
[2018-05-27] MEDS ORDERED: BENEFIBER PO SCH (21:00)
[2018-05-27] MEDS ORDERED: METOPROLOL TARTRATE 25 MG TAB PO SCH (21:00)
[2018-05-28 06:21] LABS: Hematocrit (blood only) 39.6 % (37-47); Mean Corpuscular Hgb Conc 32.8 g/dL (32-36); Mean Corpuscular Volume 88.8 fL (80-100); Mean Platelet Volume 11.4 fL (7.4-10.4); Platelet Count 272 K/uL (130-400); RDW Coefficient of Variation 15.4 % (11.5-14.5); Red Blood Count 4.46 M/uL (4.2-5.4); White Blood Count 7.83 K/uL (4.8-10.8)
[2018-05-28 06:23] LABS: INR 2.8 (0.9-1.1); Prothrombin Time 26.6 Seconds (9.0-12.0)
[2018-05-28 06:28] LABS: BUN Creatinine Ratio 18.9 (10-20); Calcium 9.3 mg/dl (8.5-10.1); Creatinine Clr Calc Pharmacy 57.4 ml/min; Est GFR (African American) 80.5; Est GFR (Non-African American) 69.4; Potassium 3.4 mmol/L (3.5-5.1)
[2018-05-28] MEDS ORDERED: POTASSIUM CHLORIDE 10 MEQ TABCR PO STA (07:30)
--- NOTE | 2018-05-28 07:41 | History & Physical Bridge Note ---
Date of Service May 28, 2018 History & Physical Bridge Note I have examined the patient, reviewed the History & Physical and in the interval since the performance of the History & Physical I have noted the following changes of clinical significance: no changes noted. Pt remains in AF, AFL with mildly elevated ventricular rate. INR at goal at 2.8 this am. Informed consent obtained. Will proceed with CV.
--- NOTE | 2018-05-28 07:44 | Anesthesiology Consultation ---
Date of Service May 28, 2018 Assessment & Plan (1) Encounter for pre-operative examination: Chart Review Chart Review: Acceptable Risk for Surgery and Patient NOT seen in Pre Admission Testing Consults Requested none History Surgery Operation Date: 05/28/18 07:45 Proposed Procedures p Cardioversion w/Anesthesia Sedation - Dillon Almeida DO Height/Weight Height: 5 ft 2 in Weight: 75.1 kg Allergies Allergy/AdvReac Type Severity Reaction Status Date / Time Sulfa (Sulfonamide Allergy Intermediate Rash, hives Verified 05/27/18 12:41 Antibiotics) lidocaine Allergy Unknown HIVES Verified 05/27/18 12:41 levothyroxine AdvReac Intermediate TACHYCARDIA Unverified 05/27/18 12:41 Latex2 -Systemic Allergic Allergy Unknown WHEEZING Uncoded 05/27/18 12:41 Response Medications Home Medications Medication Instructions Recorded Confirmed Last Taken Benefiber Capsules 1 cap PO TID 05/27/18 05/27/18 05/27/18 08:00 aspirin [Aspir-81] 81 mg PO QAM 05/27/18 05/27/18 05/27/18 atorvastatin 20 mg PO Q OTHER DAY 05/27/18 05/27/18 05/26/18 dicyclomine 20 mg PO QID PRN 05/27/18 05/27/18 Unknown dofetilide 125 mcg PO Q12H 05/27/18 05/27/18 05/27/18 furosemide 20 mg PO Q OTHER DAY 05/27/18 05/27/18 05/26/18 metoprolol tartrate 12.5 mg PO HS 05/27/18 05/27/18 05/26/18 metoprolol tartrate 25 mg PO QAM 05/27/18 05/27/18 05/27/18 nitroglycerin [Nitrostat] 0.4 mg SUBLINGUAL UD 05/27/18 05/27/18 Unknown omeprazole 20 mg PO QAM 05/27/18 05/27/18 05/27/18 sertraline 50 mg PO QAM 05/27/18 05/27/18 05/27/18 warfarin 2 mg PO 3XWK 05/27/18 05/27/18 05/26/18 warfarin 3 mg PO 4XWK 05/27/18 05/27/18 05/25/18 Active Medications Generic Name Dose Route Start Last Admin Trade Name Freq PRN Reason Stop Dose Admin Acetaminophen 650 mg 05/27/18 13:45 05/27/18 20:04 Tylenol PO 06/26/18 13:44 650 mg Q4H PRN Administration Pain or Fever Dofetilide 125 mcg 05/27/18 21:00 05/27/18 20:05 Tikosyn PO 06/26/18 20:59 125 mcg BID ARACELI Administration Metoprolol Tartrate 12.5 mg 05/27/18 21:00 05/27/18 20:05 Lopressor PO 06/26/18 20:59 12.5 mg HS ARACELI Administration Warfarin Sodium 3 mg 05/27/18 16:00 05/27/18 15:28 Coumadin PO 06/26/18 15:59 3 mg [id number]@1600 ARACELI Administration Past Medical History Medical History IBS (irritable bowel syndrome) (Chronic) Paroxysmal atrial flutter (Chronic) CAD (coronary artery disease) (Chronic) Rheumatic heart disease, on March 04, 2002 patient underwent aortic valve replacement and mitral valve replacement along with CABG x3 with a KIRK to the LAD, right internal mammary artery anastomosis as a free graft to the RCA and a single saphenous vein graft to the diagonal coronary artery and radiofrequency ablation of atrial fibrillation pathways at [facility]. 01/2011 admitted to [facility] secondary to symptomatically A. fib flutter which patient underwent DCCV. Sotalol was started but stopped due to intolerance secondary to nausea and bradycardia. July 2011 Tikosyn loading and successful repeat DCCV. 01/08/12 [place] [facility] [place] remained on war[place]in. Noted to have single-vessel disease 70% mid LAD, 2 of the 3 bypasses were patent. There was obstruction of the SVG to diagonal however, the [place] diagonal had no significant obstruction. 12/24/12 hospitalized at [facility] and underwent redo of mechanical MVR By Dr. Manley. Postop day flutter noted. Tikosyn was discontinued and sent home on amiodarone and metoprolol. 05/3015 admitted to [facility] secondary to symptomatically flutter and tikosyn re-initiated. 11/2015 admitted to [facility] secondary to recurrent symptomatic paroxysmal atrial flutter with RVR, status post DCCV. Anticoagulation goal of INR 2.5 to 3.5 (Chronic) CKD (chronic kidney disease), stage II (Chronic) HTN (hypertension) (Chronic) HLD (hyperlipidemia) (Chronic) Liver cirrhosis secondary to BROWNE (Chronic) Hypothyroidism (Chronic) Rheumatic heart disease (Resolved) Atrial flutter (Acute) CAD (coronary artery disease) (Chronic) Past Family History Family History Mother Colorectal cancer Past Surgical History Surgical History History of cholecystectomy (Chronic) History of bilateral breast reduction surgery (Chronic) History of partial thyroidectomy (Chronic) S/P AVR (aortic valve replacement) (Chronic) "Mechanical 2002 replace aortic valve 2012 - [facility] - Dr Manley" On 05/25/15 15:41 Mel Quevedo wrote "Mechanical 2002" S/P MVR (mitral valve replacement) (Chronic) "Mechanical 2002" S/P CABG (coronary artery bypass graft) (Chronic) S/P NELLY (total abdominal hysterectomy) (Chronic) removal of L ovary S/P cholecystectomy (Chronic) H/O esophagogastroduodenoscopy (Chronic) Hx of appendectomy (Chronic) History of cholecystectomy (Resolved) Hx of CABG (Resolved) Hx of appendectomy (Resolved) Social History Smoking Status: Never smoker Do You Dip or Chew Tobacco: No Hx Alcohol Use: No Hx Substance Use: No Physical Exam Vital Signs Last Vital Signs Temp 36.5 C 05/28/18 07:00 Pulse 77 05/28/18 07:00 Resp 16 05/28/18 07:00 BP 95/59 L 05/28/18 07:00 Pulse Ox 94 05/28/18 07:00 Testing Electrocardiogram Date: 05/28/18 Findings: + NSST changes Aflutter wieth variable AV block rate 96 Laboratory Results 05/28/18 05:18 05/28/18 05:18 PT 26.6 Seconds (9.0-12.0) H 05/28/18 05:18 INR 2.8 (0.9-1.1) H 05/28/18 05:18
[2018-05-28] MEDS ORDERED: PROPOFOL IV EMULSION 10 MG/ML 20 ML VIAL IV ONE (08:17)
[2018-05-28] MEDS ORDERED: LIDOCAINE HCL 2% MPF (LOCAL) 5 ML VIAL INFIL ONE (08:17)
--- NOTE | 2018-05-28 08:20 | Anesthesiology Progress Note ---
Date of Service May 28, 2018 Anesthesia Post Procedure Vital Signs Vital Signs: Temp Pulse Pulse Pulse Resp BP BP 05/28/18 08:10 58 L 16 118/54 L 05/28/18 08:07 59 L 16 116/52 L 05/28/18 08:02 60 16 121/51 L 05/28/18 08:00 16 136/68 05/28/18 07:00 36.5 C 77 16 05/28/18 03:09 36.5 C 80 18 05/27/18 23:49 36.7 C 108 H 18 105/57 L 05/27/18 19:44 36.7 C 99 H 20 108/65 05/27/18 15:48 36.3 C L 75 18 159/78 H 05/27/18 14:19 36.4 C L 72 19 05/27/18 13:18 68 18 116/54 L 05/27/18 13:14 68 18 116/54 L 05/27/18 12:01 87 22 124/60 05/27/18 11:58 36.8 C 89 20 133/70 05/27/18 11:57 67 24 133/70 05/27/18 11:02 85 20 05/27/18 10:16 36.8 C 85 20 133/77 BP Pulse Ox 05/28/18 08:10 97 05/28/18 08:07 97 05/28/18 08:02 97 05/28/18 08:00 97 05/28/18 07:00 95/59 L 94 05/28/18 03:09 98/58 L 95 05/27/18 23:49 97 05/27/18 19:44 97 05/27/18 15:48 94 05/27/18 14:19 138/75 98 05/27/18 13:18 98 05/27/18 13:14 98 05/27/18 12:01 98 05/27/18 11:58 97 05/27/18 11:57 96 05/27/18 11:02 97 05/27/18 10:16 97 Pain Intensity Chest: Pain Intensity: 0 Notes Mental Status: alert / awake / arousable Patient Amnestic to Procedure: Yes Nausea / Vomiting: adequately controlled Pain: adequately controlled Airway Patency, RR, SpO2: stable & adequate BP & HR: stable & adequate Hydration State: stable & adequate Anesthetic Complications: no major complications apparent and Pt Satisfied with anesthetic care
[2018-05-28] MEDS: DOFETILIDE 125 MCG CAPSULE PO SCH (08:28)
--- NOTE | 2018-05-28 08:36 | Cardioversion ---
Date of Service May 28, 2018 Electrical Cardioversion Rpt Electrical Cardioversion Report Author: Dillon Almeida DO Cardiology Brief Post Op Date of Surgery May 28, 2018 Pre & Post Diagnosis Operation Date: 05/28/18 07:45 Preprocedure diagnosis: Symptomatic atrial fibrillation/atrial flutter Post procedure diagnosis: Successful conversion to sinus rhythm Procedure The patient had been seen and examined in room 222 this morning. Her telemetry is reviewed. She remained in atrial fibrillation versus atrial flutter with mildly elevated ventricular rate in the range of 110 bpm at rest. INR this morning was within therapeutic range at 2.8. Informed consent was therefore obtained for direct current cardioversion. The patient was sedated with the assistance of Dr. Tito Kaye of anesthesia receiving a total of propofol 50 mg IV and lidocaine 40 mg IV. The patient then underwent synchronized direct current cardioversion receiving 200 J of biphasic energy x1 dose with successful conversion. Post procedure EKG revealed ectopic atrial rhythm with negative P wave access, age-indeterminate septal infarction pattern, and corrected QT interval of 501 ms, which is stable compared to her previous long-standing baseline. Plan: Transferred back to telemetry for ongoing care. Replace potassium, as her potassium was 3.4. Continue prior to hospital medications including dofetilide 125 mg p.o. twice daily. Continue Coumadin for stroke prophylaxis given atrial arrhythmias as well as mechanical aortic valve and mechanical mitral valve prostheses . Wheel Polisher Dillon Almeida DO [employer] Teacher none Estimated Blood Loss 0 Findings Consistent with Post-Op Diagnosis Anesthesia Type MAC Overlapping Procedure I was present for: the critical portions of procedure.
[2018-05-28] MEDS ORDERED: SERTRALINE HCL 50 MG TABLET PO SCH (09:00)
[2018-05-28] MEDS ORDERED: FUROSEMIDE 20 MG TAB PO SCH (09:00)
[2018-05-28] MEDS ORDERED: METOPROLOL TARTRATE 25 MG TAB PO SCH (09:00)
[2018-05-28] MEDS ORDERED: ASPIRIN 81 MG ECTAB PO SCH (09:00)
[2018-05-28] MEDS ORDERED: PANTOprazole 40 MG TAB PO SCH (09:00)
--- NOTE | 2018-05-28 11:03 | Cardiology Progress Note ---
Date of Service May 28, 2018 Assessment & Plan (1) Atrial flutter: (2) Prolonged Q-T interval on ECG: The patient has a history of long-standing rheumatic heart disease for which she has had 2 past open heart surgeries. She has a mechanical aortic valve prosthesis and a mechanical mitral valve prosthesis. She also has a long-standing history of recurrent symptomatic atrial arrhythmias. She has been on multiple rhythm control strategies including metoprolol, past trials of sotalol, and amiodarone. Sotalol was ineffective in terms of rhythm control, and also caused significant bradycardia. Amiodarone was poorly tolerated from a GI side effect standpoint. Should ultimately been placed on dofetilide. She has been maintained on dofetilide 125 mg twice daily with noted chronic prolongation in her corrected QT interval to the range of 500 ms. She has been followed by [facility] electrophysiology as an outpatient. She is actually done well for several years from an arrhythmia standpoint. She has a prior history of multiple direct-current cardioversions in the most recent of which prior to this admission had been in November 2015. After that cardioversion should been seen by electrophysiology as an outpatient. The note discusses her history of complex arrhythmias including atrial fibrillation and atrial flutter. By EKG the atrial flutter appears to be a left-sided atrial flutter which would not be unusual given her history of rheumatic heart disease. At that point ongoing antiarrhythmic therapy was recommended and she is done well without complication on dofetilide. At this time, we will continue her current metoprolol dofetilide treatment. She does not have significant bradycardia, and therefore I do not think pacemaker implantation is indicated at this time. Future considerations include ablation to convert consider pulmonary vein isolation and perhaps flutter ablation, but as noted the likelihood of success of a left-sided flutter ablation as patient is considered low. She has breakthrough symptoms refractory to other treatments, other considerations include permanent pacemaker placement and AV junction ablation, but this time continue with conservative therapy. The patient has a cardiology visit already scheduled for 08/27/18, I have cont acted my office and asked to move that up. She is to be discharged on her prior to hospital medication therapy. Subjective Chief complaint: Follow-up palpitations exertional shortness of breath Subjective: Patient seen and examined prior to, during, and after direct current cardioversion this morning. After the procedure, I followed up with her in her room. She was sitting comfortably enjoying the company of her . And feeling well telemetry confirms ongoing sinus rhythm versus ectopic atrial rhythm with negative P wave axis noted on EKG. Physical Exam Vital Signs (Past 24 Hours): Last Vital Signs Temp 36.3 C L 05/28/18 09:45 Pulse 70 05/28/18 09:45 Resp 16 05/28/18 09:45 BP 115/72 05/28/18 09:45 Pulse Ox 98 05/28/18 09:45 Physical Exam: General: no acute distress and stated age Eyes: conjunctiva are pink and non-injected, sclera clear Neck: normal jugular venous pulse, no hepatojugular reflux Chest: normal shape and normal respiratory effort Lungs: clear to auscultation and percussion Cardiac Exam: -Well-healed midline sternotomy incision Regular rhythm, crisp prosthetic heart valve sounds noted without murmur Abdomen: abdomen soft, non-tender, no abnormal masses and no hepatosplenomegaly Musculoskeletal: no gait disturbance, no weakness Extremities: no edema and no cyanosis Neuro:awake, coversant, follows commands, no focal motor deficits Psych: appropriate affect and insight. Results & Data Laboratory Results INR 05/27/18 was 2.8
--- NOTE | 2018-05-28 12:14 | Hospitalist Progress Note ---
Date of Service May 28, 2018 Assessment & Plan (1) Paroxysmal atrial flutter: Patient is a 72 yr female with H/O A. fib and flutter anticoagulated on warfarin, CAD with history of CABG x3, history of mechanical AVR and MVR with history of MVR redo anticoagulated on warfarin, HTN, HLD, IBS who presents to [facility] secondary to atrial fib/flutter times 2-3 weeks. Atrial Flutter CXR:revealed chronic pulmonary congestion. H/O recurrent symptomatic atrial arrhythmias H/O Intolerence to sotaolol, amiodarone S/P successful Cardioversion on 05/28/18 Appreciate Cardiology Input Continue metoprolol, dofetilide On Co[place]umdin for anticoagulation INR:2.8 May need ablation/EP study if recurrence of symptoms eventually Needs follow up with Cardiology upon discharge (2) Pulmonary vascular congestion: Mild Pulm congestion Received Lasix Monitor (3) HTN (hypertension): Stable Continue home meds (4) HLD (hyperlipidemia): Continue lipitor (5) S/P AVR (aortic valve replacement): Continue warfarin INR 2.8 (6) S/P MVR (mitral valve replacement): Continue warfarin INR 2.8 (7) IBS (irritable bowel syndrome): On Bentayl PRN (8) Prolonged Q-T interval on ECG: Avoid QT prolonging meds monitor (9) Anticoagulation goal of INR 2.5 to 3.5: INR:2.8 (10) DVT prophylaxis: On Coumadin Code Status Full Code Disposition: Plan to discharge home when stable Subjective Patient is seen and examined at bedside Patient had successful Cardioversion this morning Doing well after the cardioversion Denies any chest pain, SOB, dizziness, nausea Family at bedside Offers no other complaints Physical Exam Vital Signs (Past 24 Hours): Last Vital Signs Temp 36.4 C L 05/28/18 11:31 Pulse 70 05/28/18 11:31 Resp 18 05/28/18 11:31 BP 103/71 05/28/18 11:31 Pulse Ox 96 05/28/18 11:31 Physical Exam: Physical Exam: Vitals signs as noted above General Appearance:Moderately built and nourished, no apparent distress Head: normocephalic, Atraumatic Eyes: normal inspection, EOMI Neck: supple, Trachea midline Respiratory/Chest: Normal breath sounds, CTA Cardiovascular: S1, S2, No murmur, +Heart valve sounds Abdomen/GI:Soft, Non tender, Bowel sounds present Extremities/Musculoskelatal:normal inspection, no edema Neurologic/Psych:AAOX3, grossly no focal neurological deficits Skin: normal color, warm, +Sternostomy scars Results & Data Laboratory Results Short CBC 05/28/18 Range/Units 05:18 WBC 7.83 (4.8-10.8) K/uL Hgb 13.0 (12.0-16.0) g/dL Hct 39.6 (37-47) % Plt Count 272 (130-400) K/uL BMP 05/28/18 05:18 Sodium 140 Potassium 3.4 L Chloride 108 H Carbon Dioxide 26 BUN 16 Creatinine 0.84 Glucose 119 H Calcium 9.3 (1) HTN (hypertension) Hypertension type: essential hypertension Qualified Code(s): I10 - Essential (primary) hypertension (2) HLD (hyperlipidemia) Hyperlipidemia type: unspecified Qualified Code(s): E78.5 - Hyperlipidemia, unspecified (3) IBS (irritable bowel syndrome) Irritable bowel syndrome type: with diarrhea Qualified Code(s): K58.0 - Irritable bowel syndrome with diarrhea
--- NOTE | 2018-05-28 12:19 | Discharge Summary ---
Date of Service May 28, 2018 Admission HPI Per Admitting Provider This is a 72-year-old white female who has a significant past medical history of recurrent A. fib and flutter anticoagulated on warfarin, CAD with history of CABG x3, history of mechanical AVR and MVR with history of MVR redo anticoagulated on warfarin, HTN, HLD, IBS who presents to [facility] secondary to atrial fib/flutter times 2-3 weeks. is at bedside. Patient notes over the past 2-3 weeks her heart rate has been, "all over the place." She has been persistently in atrial fibrillation flutter for the past 1 week. While in arrhythmia she feels left-sided chest discomfort, shortness of breath, dizziness, lightheadedness, palpitations. She also notes, "congestion in her chest," and increased swelling in her bilateral lower extremities despite taking Lasix. She has not noticed any significant weight gain. She denies any recent illness, fever, chills, sweats, syncope, cough, hemoptysis, nausea, vomiting, dysuria, hematuria, increased urgency or frequency with urination. Harjeet gilman does have abdominal discomfort as well as off-and-on diarrhea but this is secondary to her IBS. Her appetite has been normal. 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 There was question whether she may benefit from PPM to titrate beta-natacha as opposed to AV damon ablation. She also follow-up with PCP on 05/19 Dr. Bullock secondary to above symptoms. For further details of patient's cardiac history: Rheumatic heart disease, on March 04, 2002 patient underwent aortic valve replacement and mitral valve replacement along with CABG x3 with a KIRK to the LAD, right internal mammary artery anastomosis as a free graft to the RCA and a single saphenous vein graft to the diagonal coronary artery and radiofrequency ablation of atrial fibrillation pathways at [facility]. 01/2011 admitted to [facility] secondary to symptomatically A. fib flutter which patient underwent DCCV. Sotalol was started but stopped due to intolerance secondary to nausea and bradycardia. July 2011 Tikosyn loading and successful repeat DCCV. 01/08/12 underwent cardiac catheterization at [facility] and remained on warfarin. Noted to have single-vessel disease 70% mid LAD, 2 of the 3 bypasses were patent. There was obstruction of the SVG to diagonal however, the [place] diagonal had no significant obstruction. 12/24/[address] [facility] and underwent redo of mechanical MVR By Dr. Manley. Postop day flutter noted. Tikosyn was discontinued and sent home on amiodarone and metoprolol. 05/3015 admitted to [facility] secondary to symptomatically flutter and tikosyn re-initiated. 11/2015 admitted to [facility] secondary to recurrent symptomatic paroxysmal atrial flutter with RVR, status post DCCV. Admission Exam Per Admitting Provider Gen: WD/WN, F, NAD, sitting up in bed, pleasant, conversing easily Head: Normocephalic, Atraumatic Eyes: Sclera normal, no conjunctival injection, PERRLA, EOMI ENT: Gross hearing intact, normal pharynx, mucous membranes moist Neck: supple, no adenopathy, No JVD, no bruit, Resp: Clear to auscultation b/l, no wheeze, rales, rhonchi. Normal insp/exp effort, no accessory muscle use CV: Irregular rate, irregular rhythm, mechanical valve click noted, no murmur, rub, gallop, Abd: +BS x 4, soft, nontender, nondistended Musculoskeletal: moves extremities active rom x 4, strength intact, good pole climber strength Extremities: Trace to +1 bilateral pretibial edema Skin: warm, moist, no rash, negative turgor, cap refill < 2sec Neuro: Alert and oriented x 3, speech normal, good mood/affect, cran nerve 2-12 intact grossly : deferred Principal Diagnosis Discharge Information Discharge Diagnosis Atrial Flutter S/P Cardioversion Discharge Goals Decrease discomfort,Improve disease control, Improve function Discharge Activity Limitations Resume your previous activity Discharge Data Allergies Allergy/AdvReac Type Severity Reaction Status Date / Time Sulfa (Sulfonamide Allergy Intermediate Rash, hives Verified 05/27/18 12:41 Antibiotics) lidocaine Allergy Unknown HIVES Verified 05/27/18 12:41 levothyroxine AdvReac Intermediate TACHYCARDIA Unverified 05/27/18 12:41 Latex2 -Systemic Allergic Allergy Unknown WHEEZING Uncoded 05/27/18 12:41 Response Consultations 05/27/18 11:23 ED Decision to Admit Stat 05/27/18 12:18 Consult Cardiology Routine 05/27/18 14:44 Consult Anesthesiology Routine Procedures Performed Operation Date: 05/28/18 07:45 Actual Procedures p Cardioversion - Dillon Almeida DO CXR: Chronic pulmonary vascular congestion. Mild cardiomegaly. Hospital Course (1) Paroxysmal atrial flutter: Patient is a 72 yr female with H/O A. fib and flutter anticoagulated on warfarin, CAD with history of CABG x3, history of mechanical AVR and MVR with history of MVR redo anticoagulated on warfarin, HTN, HLD, IBS who presents to [facility] secondary to atrial fib/flutter times 2-3 weeks. Atrial Flutter CXR:revealed chronic pulmonary congestion. H/O recurrent symptomatic atrial arrhythmias H/O Intolerence to sotaolol, amiodarone S/P successful Cardioversion on 05/28/18 Appreciate Cardiology Input Continue metoprolol, dofetilide On Coaumdin for anticoagulation INR:2.8 May need ablation/EP study if recurrence of symptoms eventually Needs follow up with Cardiology upon discharge (2) Pulmonary vascular congestion: Mild Pulm congestion Received Lasix Monitor (3) HTN (hypertension): Stable Continue home meds (4) HLD (hyperlipidemia): Continue lipitor (5) S/P AVR (aortic valve replacement): Continue warfarin INR 2.8 (6) S/P MVR (mitral valve replacement): Continue warfarin INR 2.8 (7) IBS (irritable bowel syndrome): On Bentayl PRN (8) Prolonged Q-T interval on ECG: Avoid QT prolonging meds monitor (9) Anticoagulation goal of INR 2.5 to 3.5: INR:2.8 (10) DVT prophylaxis: On Coumadin Code Status Full Code Disposition: Plan to discharge home when stable Total Time Total Time Spent Total Time Spent (In Minutes): 34 minutes Total Time Includes: Examination of the Patient, Discharge Planning, Medication Reconciliation, Communication With Other Providers and Other Discharge Plan Discharge Items Patient Disposition: Home - Self-Care Reason For Visit: ATRIAL FLUTTER Discharge Diagnosis: Atrial Flutter S/P Cardioversion Discharge Goals: Decrease discomfort, Improve disease control and Improve function Activity: Resume your previous activity Exercise/Sports: Gradually increase as tolerated Non-emergency contact: Primary Care Provider and Brass Polisher Call non-emergency contact if: you have any medication questions, your symptoms worsen, your pain is not controlled, your pain is worsening, your pain is unusual for you, your pain is concerning for you and you have a fever Follow-up/Referrals: Melba Bullock, [Primary Care Provider] - Diet: Heart Healthy Addtl Provider Instructions: Follow up with on June 01, 2018 at 10:45 AM for Primary Care Follow up with Cardiology Ralph Jonas PA-C on August 27, 2018 at 1:45pm Seek immediate medical attention if your symptoms reoccur or worsen Prescriptions: Continued atorvastatin 20 mg Tablet 20 mg PO Q OTHER DAY RF: 0 dofetilide 125 mcg Capsule 125 mcg PO Q12H RF: 0 aspirin [Aspir-81] 81 mg Tablet,Delayed Release (Dr/Ec) 81 mg PO QAM RF: 0 dicyclomine 20 mg Tablet 20 mg PO QID PRN (Reason: Abdominal Discomfort) RF: 0 nitroglycerin [Nitrostat] 0.4 mg Tablet, Sublingual 0.4 mg sublingual UD RF: 0 furosemide 20 mg Tablet 20 mg PO Q OTHER DAY RF: 0 warfarin 1 mg Tablet 3 mg PO 4XWK RF: 0 warfarin 1 mg Tablet 2 mg PO 3XWK RF: 0 sertraline 50 mg Tablet 50 mg PO QAM RF: 0 metoprolol tartrate 25 mg Tablet 25 mg PO QAM RF: 0 omeprazole 20 mg Tablet,Delayed Release (Dr/Ec) 20 mg PO QAM RF: 0 metoprolol tartrate 25 mg Tablet 12.5 mg PO HS RF: 0 Benefiber Capsules 1 cap PO TID RF: 0 Stand-Alone Forms: [facility]/Other Patient Handouts: Cardioversion, Cardioversion Dc Discharge Orders: Discharge Order (Routine); Ordered 05/28/18 Ordered By: Ulices Ledesma Admission Data Admit Date/Time: 05/27/18 12:18 Attending Provider: Ulices Ledesma Admit Provider: Ha Fajardo Primary Care Provider: Melba Bullock Other Providers: Estrellita Kaye ; Ryan Nath ; Magdaleno Ferguson Service: Telemetry Other Interventions: Discharge Summary Assessment (RN) Last Done: 05/28/18 12:59 Pending Studies at Discharge: No DC Date/Time DO NOT enter until pt leaves facility: 05/28/18 13:43
[2018-05-28] MEDS ORDERED: WARFARIN SOD 2 MG TAB PO SCH (16:00)
[2018-05-28] MEDS ORDERED: ATORVASTATIN 20 MG TAB PO SCH (21:00)
== END 2018-05-28 13:43 | disposition home or self-care (01) ==
LOC: 2S 10:13 → ED 10:13 → 2S 13:18

== ENCOUNTER 2018-11-23 16:39 | Inpatient (IN) ==
--- OUTSIDE RECORDS SUMMARY | 2018-11-23 16:41 | External Medical Summary | Continuity of Care Document ---
:1945 Author Name Roshan Casiano Address Unavailable Unavailable , Care Team Providers Name Role Phone Unavailable Unavailable Unavailable PCP, NO Unavailable Unavailable Problems Acute Esophageal Ulcer (530.20) Allergies and Adverse Reactions Allergy history not documented Medications Medications not documented Procedures Procedures not documented Immunizations Immunizations not documented Plan of Treatment Planned Observations Planned Goals not documented Results No Known Results Results not documented
[2018-11-23] MEDS ORDERED: NITROGLYCERIN SL 0.4 MG/TAB TAB SL STA (17:11)
--- NOTE | 2018-11-23 17:30 | XRay Report ---
XR chest 1V portable HISTORY: Atypical Chest Pain COMPARISON: Chest 05/27/2018. FINDINGS: There are low lung volumes. No pneumothorax. No pleural effusions. The heart remains enlarg ed. There is mild interstitial thickening suggestive of congestive change. This has improved. Cardiac valve prostheses are again noted. There are poststernotomy changes. No new focal lung consolidations to suggest pneumonia. IMPRESSION: Cardiomegaly with slight improvement in the mild congestive change. Electronically signed by: Tito Izaguirre M.D. 11/23/2018 5:28 PM
--- NOTE | 2018-11-23 18:01 | Cardiology Consultation ---
Date of Consultation November 23, 2018 Assessment & Plan (1) Atrial flutter: If INR is less than 2.5, recommend heparin infusion. We will plan on keeping the patient n.p.o. after midnight, for possible transesophageal echocardiogram guided cardioversion tomorrow. Continue prior to hospital medications include dofetilide. (2) S/P AVR (aortic valve replacement): (3) S/P MVR (mitral valve replacement): History of Present Illness History of Present Illness Sharee Diana is a 73 year old female seen in cardiology consultation per the request of Dr Winston for the evaluation of tachycardia. Patient is well-known to the undersigned as I have followed her as an inpatient outpatient for years. She has a past history of rheumatic heart disease with remote mechanical mitral valve replacement and mechanical aortic valve replacement performed at [facility] in 2002 along with CABG x3 at that time with KIRK to LAD, right internal mammary artery anastomosed as a free graft to the right coronary artery, and a single saphenous vein graft to the diagonal. She was seen in outpatient follow-up today having noted 1 month of feeling like her heart rate was elevated. She recently had a significant chest pain episode that radiated to her right arm that woke her up from sleep a little over a week ago. 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 Patient has a complex arrhythmia history. 2010 she was admitted to [facility] for symptomatic atrial fibrillation/atrial flutter and underwent direct-current cardioversion. Sotalol was started but then discontinued due to intolerance with symptoms of nauseousness of bradycardia. Subsequently was started on dofetilide in July 2011 and has been on it in the interim. Her most recent cardiac catheterization took place at [facility] in January 2012. She was noted to have one-vessel coronary disease with a 70% mid LAD stenosis. 2 of her 3 bypasses were patent. Obstruction of the saphenous vein to the diagonal was noted however the [place] vessel had no significant disease the patient was considered well revascularized. She developed prosthetic aortic valve dysfunction and underwent redo mechanical aortic valve replacement on 12/24/2012 at [facility]. Allergies Allergy/AdvReac Type Severity Reaction Status Date / Time Sulfa (Sulfonamide Allergy Intermediate Rash, hives Verified 05/27/18 12:41 Antibiotics) lidocaine Allergy Unknown HIVES Verified 05/27/18 12:41 levothyroxine AdvReac Intermediate TACHYCARDIA Unverified 05/27/18 12:41 Latex2 -Systemic Allergic Allergy Unknown WHEEZING Uncoded 05/27/18 12:41 Response Home Medications Home Medications Medication Instructions Recorded Confirmed Type Benefiber Capsules 1 cap PO TID 05/27/18 05/27/18 History aspirin [Aspir-81] 81 mg PO QAM 05/27/18 05/27/18 History atorvastatin 20 mg PO Q OTHER DAY 05/27/18 05/27/18 History dicyclomine 20 mg PO QID PRN 05/27/18 05/27/18 History dofetilide 125 mcg PO Q12H 05/27/18 05/27/18 History furosemide 20 mg PO Q OTHER DAY 05/27/18 05/27/18 History metoprolol tartrate 12.5 mg PO HS 05/27/18 05/27/18 History metoprolol tartrate 25 mg PO QAM 05/27/18 05/27/18 History nitroglycerin [Nitrostat] 0.4 mg SUBLINGUAL UD 05/27/18 05/27/18 History omeprazole 20 mg PO QAM 05/27/18 05/27/18 History sertraline 50 mg PO QAM 05/27/18 05/27/18 History warfarin 2 mg PO 3XWK 05/27/18 05/27/18 History warfarin 3 mg PO 4XWK 05/27/18 05/27/18 History Patient History Medical History IBS (irritable bowel syndrome) (Chronic) Paroxysmal atrial flutter (Chronic) CAD (coronary artery disease) (Chronic) Rheumatic heart disease, on March 04, 2002 patient underwent aortic valve replacement and mitral valve replacement along with CABG x3 with a KIRK to the LAD, right internal mammary artery anastomosis as a free graft to the RCA and a single saphenous vein graft to the diagonal coronary artery and radiofrequency ablation of atrial fibrillation pathways at [facility]. 01/2011 admitted to [facility] secondary to symptomatically A. fib flutter which patient underwent DCCV. Sotalol was started but stopped due to intolerance secondary to nausea and bradycardia. July 2011 Tikosyn loading and successful repeat DCCV. 01/08/12 underwent cardiac catheterization at [facility] and remained on warfarin. Noted to have single-vessel disease 70% mid LAD, 2 of the 3 bypasses were patent. There was obstruction of the SVG to diagonal however, the [place] diagonal had no significant obstruction. 12/24/12 hospitalized at [facility] and underwent redo of mechanical MVR By Dr. Manley. Postop day flutter noted. Tikosyn was discontinued and sent home on amiodarone and metoprolol. 05/3015 admitted to [facility] secondary to symptomatically flutter and tikosyn re-initiated. 11/2015 admitted to [facility] secondary to recurrent symptomatic paroxysmal atrial flutter with RVR, status post DCCV. Anticoagulation goal of INR 2.5 to 3.5 (Chronic) CKD (chronic kidney disease), stage II (Chronic) HTN (hypertension) (Chronic) HLD (hyperlipidemia) (Chronic) Liver cirrhosis secondary to BROWNE (Chronic) Hypothyroidism (Chronic) Rheumatic heart disease (Resolved) Atrial flutter (Acute) CAD (coronary artery disease) (Chronic) Surgical History History of cholecystectomy (Chronic) History of bilateral breast reduction surgery (Chronic) History of partial thyroidectomy (Chronic) S/P AVR (aortic valve replacement) (Chronic) "Mechanical 2002 replace aortic valve 2012 - [facility] - Dr Manley" On 05/25/15 15:41 Mel Quevedo wrote "Mechanical 2002" S/P MVR (mitral valve replacement) (Chronic) "Mechanical 2002" S/P CABG (coronary artery bypass graft) (Chronic) S/P NELLY (total abdominal hysterectomy) (Chronic) removal of L ovary S/P cholecystectomy (Chronic) H/O esophagogastroduodenoscopy (Chronic) Hx of appendectomy (Chronic) History of cholecystectomy (Resolved) Hx of CABG (Resolved) Hx of appendectomy (Resolved) Family History Mother Colorectal cancer Social History Preferred Language: [place] Communication Ability: Effective 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: No Beliefs That Will Affect Care: None Current Living Situation: Spouse Feels Safe at Home: Yes Smoking Status: Never smoker Second Hand Exposure: No ; Hx Alcohol Use: No Hx Substance Use: No Review of Systems Review of Systems: All systems reviewed & are unremarkable except as noted in HPI & below Physical Exam Physical Exam: Temp Pulse Resp BP Pulse Ox 36.9 C 116 H 18 130/69 95 11/23/18 16:56 11/23/18 17:02 11/23/18 17:02 11/23/18 16:56 11/23/18 17:45 Constitutional: WD/WN, vitals as above Respiratory: normal respiratory effort, lungs clear to auscultation Cardiovascular: Rate/Rhythm: + tachycardic and + irregularly irregular Extremities: no edema Snyder prosthetic heart sounds noted Results & Data Vital Signs (Past 12 Hours) Vital Signs Temp Pulse Resp BP Pulse Ox 11/23/18 17:45 95 11/23/18 17:02 116 H 18 95 11/23/18 16:56 36.9 C 105 H 20 130/69 97 Laboratory Results Hospital labs currently pending. Most recent INR performed as an outpatient on 11/17/2018 was subtherapeutic at 1.87 INR on 10/14/2018 was 3.3 Diagnostic Findings EKG performed 11/23/2018 at 1527 hrs. as an outpatient today at [facility] reviewed independently: Atrial flutter at 111 bpm with variable AV block, upright atrial activity noted in V1 consistent with possible left-sided atrial flutter. Diffuse repolariza tion abnormalities, not significantly different from baseline. Compared to the prior tracing dated 05/12/2018, atrial flutter has replaced sinus rhythm with first-degree AV block.
[2018-11-23 18:02] LABS: Basophils # (auto) 0.03 K/uL (0-0.2); Basophils % (auto) 0.3 %; Eosinophils # (auto) 0.06 K/uL (0-0.5); Eosinophils % (auto) 0.7 %; Hematocrit (blood only) 39.1 % (37-47); Immature Granulocytes # (auto) 0.03 K/uL (0.00-0.02); Immature Granulocytes % (auto) 0.3 %; Lymphocytes # (auto) 2.78 K/uL (1.2-3.4); Lymphocytes % (auto) 30.7 %; Mean Corpuscular Hemoglobin 28.6 pg (25-34); Mean Corpuscular Hgb Conc 33.2 g/dL (32-36); Mean Corpuscular Volume 85.9 fL (80-100); Mean Platelet Volume 11.5 fL (7.4-10.4); Monocytes # (auto) 0.87 K/uL (0.11-0.59); Monocytes % (auto) 9.6 %; Neutrophils % (auto) 58.4 %; Platelet Count 249 K/uL (130-400); RDW Coefficient of Variation 15.8 % (11.5-14.5); RDW Standard Deviation 49.8 fL (36.4-46.3); Red Blood Count 4.55 M/uL (4.2-5.4); White Blood Count 9.07 K/uL (4.8-10.8)
[2018-11-23 18:12] LABS: INR 3.2 (0.9-1.1); Prothrombin Time 29.8 Seconds (9.0-12.0)
[2018-11-23 18:21] LABS: Alanine Aminotransferase 29 U/L (12-78); Albumin Level 4.2 gm/dl (3.4-5.0); Aspartate Aminotransferase 35 U/L (15-37); BUN Creatinine Ratio 8.4 (10-20); Blood Urea Nitrogen 7 mg/dl (7-18); Calcium 10.3 mg/dl (8.5-10.1); Carbon Dioxide 25 mmol/L (21-32); Chloride 106 mmol/L (98-107); Creatinine Clr Calc Pharmacy 56.4 ml/min; Est GFR (African American) 79.9; Glucose 98 mg/dl (70-99); Lipase 150 U/L (73-393); Potassium 3.4 mmol/L (3.5-5.1); Sodium 140 mmol/L (136-145)
[2018-11-23 18:26] LABS: Albumin Globulin Ratio 0.9 (0.9-2); Alkaline Phosphatase 100 U/L (45-117); Bilirubin,Total 0.6 mg/dl (0.2-1); Globulin 4.6 gm/dl (2.5-4.0); Total Protein 8.8 gm/dl (6.4-8.2); Troponin I < 0.015 ng/ml (0-0.045)
[2018-11-23] MEDS ORDERED: NITROGLYCERIN SL 0.4 MG/TAB TAB SL PRN (19:11)
[2018-11-23] MEDS ORDERED: ACETAMINOPHEN 325 MG TAB PO PRN (19:11)
[2018-11-23] MEDS ORDERED: POLYETHYLENE (MIRALAX) 17 GM PACK PO PRN (19:11)
[2018-11-23] MEDS ORDERED: ACETAMINOPHEN 325 MG TAB PO STA (19:18)
--- NOTE | 2018-11-23 19:18 | History & Physical Report ---
Date of Service November 23, 2018 Assessment & Plan (1) Paroxysmal atrial flutter: Cont Metoprolol and Tikosyn. NPO after midnight in preparation for DCCV in the morning per Cardiology. Chest pain is likely related to this rate, and less likely related to ACS. EKG reveals atrial flutter. Initial trop is negative. Trend serial troponins overnight and cont to monitor on telemetry. (2) Diarrhea: Has been using Imodium intermittently at home with success. Check stool studies. Hydrate with some IVF as she is reporting not eating much as this seems to trigger some diarrhea for her, and then she also had the vomiting episode yesterday. Hold Lasix. (3) Prolonged Q-T interval on ECG: Known by Cardiology. Cont Tikosyn (4) CAD (coronary artery disease): appears stable. Cont medical management of CAD. (5) S/P AVR (aortic valve replacement): (6) S/P MVR (mitral valve replacement): coumadin continued with INR goal 2.5-3.5. (7) DVT prophylaxis: coumadin full code dispo-to telemetry, plan for DCCV in the hospital tomorrow. Marianela Dong DO History of Present Illness Chief Complaint: palpitations and chest pain Primary Care Provider: Melba Bullock DO 73 yo F presented with two weeks of palpitations and chest pain that indicated to her she had gone back into atrial flutter. 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 However, yesterday morning she woke up with a more severe chest pain that radiated across her chest and into her right arm and this concerned her enough to make an appointment with her Photocomposition Keyboard Operator today. She reports using nitroglycerin for this pain which only made her nauseous with an episode of vomiting. She still has some pain present in her chest now, and this is not associated with other concerning symptoms of shortness of breath, sweating, etc. She also reports having two episodes of watery, non-bloody diarrhea daily for the past four weeks. She denies any recent history of antibiotic use. She has a h/o CABG and a mechanical mitral and aortic valve, and is on coumadin fro this with a therapeutic INR. Allergies Allergy/AdvReac Type Severity Reaction Status Date / Time Sulfa (Sulfonamide Allergy Intermediate Rash, hives Verified 11/23/18 19:00 Antibiotics) lidocaine Allergy Unknown HIVES Verified 11/23/18 19:00 levothyroxine AdvReac Intermediate TACHYCARDIA Unverified 11/23/18 19:00 Latex2 -Systemic Allergic Allergy Unknown WHEEZING Uncoded 11/23/18 19:00 Response Home Medications Home Medications Medication Instructions Recorded Confirmed Type aspirin [Aspir-81] 81 mg PO QAM 05/27/18 11/23/18 History atorvastatin 20 mg PO MOWEFR 05/27/18 11/23/18 History dicyclomine 20 mg PO QID PRN 05/27/18 11/23/18 History dofetilide 125 mcg PO Q12H 05/27/18 11/23/18 History furosemide 20 mg PO Q OTHER DAY 05/27/18 11/23/18 History metoprolol tartrate 12.5 mg PO HS 05/27/18 11/23/18 History metoprolol tartrate 25 mg PO QAM 05/27/18 11/23/18 History nitroglycerin [Nitrostat] 0.4 mg SUBLINGUAL UD 05/27/18 11/23/18 History omeprazole 20 mg PO QAM PRN 05/27/18 11/23/18 History sertraline 50 mg PO QAM 05/27/18 11/23/18 History warfarin 3 mg PO MOWEFR 05/27/18 11/23/18 History warfarin 2 mg PO SUTUTHSA 11/23/18 11/23/18 History Past Med/Surg History Medical History IBS (irritable bowel syndrome) (Chronic) Paroxysmal atrial flutter (Chronic) CAD (coronary artery disease) (Chronic) Rheumatic heart disease, on March 04, 2002 patient underwent aortic valve replacement and mitral valve replacement along with CABG x3 with a KIRK to the LAD, right internal mammary artery anastomosis as a free graft to the RCA and a single saphenous vein graft to the diagonal coronary artery and radiofrequency ablation of atrial fibrillation pathways at [facility]. 01/2011 admitted to [facility] secondary to symptomatically A. fib flutter which patient underwent DCCV. Sotalol was started but stopped due to intolerance secondary to nausea and bradycardia. July 2011 Tikosyn loading and successful repeat DCCV. 01/08/12 underwent cardiac catheterization at [facility] and remained on warfarin. Noted to have single-vessel disease 70% mid LAD, 2 of the 3 bypasses were patent. There was obstruction of the SVG to diagonal however, the [place] diagonal had no significant obstruction. 12/24/12 hospitalized at [facility] and underwent redo of mechanical MVR By Dr. Manley. Postop day flutter noted. Tikosyn was discontinued and sent home on amiodarone and metoprolol. 05/3015 admitted to [facility] secondary to symptomatically flutter and tikosyn re-initiated. 11/2015 admitted to [facility] secondary to recurrent symptomatic paroxysmal atrial flutter with RVR, status post DCCV. Anticoagulation goal of INR 2.5 to 3.5 (Chronic) CKD (chronic kidney disease), stage II (Chronic) HTN (hypertension) (Chronic) HLD (hyperlipidemia) (Chronic) Liver cirrhosis secondary to BROWNE (Chronic) Hypothyroidism (Chronic) Rheumatic heart disease (Resolved) Atrial flutter (Acute) CAD (coronary artery disease) (Chronic) Surgical History History of cholecystectomy (Chronic) History of bilateral breast reduction surgery (Chronic) History of partial thyroidectomy (Chronic) S/P AVR (aortic valve replacement) (Chronic) "Mechanical 2002 replace aortic valve 2012 - [facility] - Dr Manley" On 05/25/15 15:41 Mel Quevedo wrote "Mechanical 2002" S/P MVR (mitral valve replacement) (Chronic) "Mechanical 2002" S/P CABG (coronary artery bypass graft) (Chronic) S/P NELLY (total abdominal hysterectomy) (Chronic) removal of L ovary S/P cholecystectomy (Chronic) H/O esophagogastroduodenoscopy (Chronic) Hx of appendectomy (Chronic) History of cholecystectomy (Resolved) Hx of CABG (Resolved) Hx of appendectomy (Resolved) Family History Mother Colorectal cancer Social History Preferred Language: Swedish Communication Ability: Effective Battery Starter Required: No Beliefs That Will Affect Care: None Current Living Situation: Spouse Feels Safe at Home: Yes Safety Concerns: Feels Safe At This Time Smoking Status: Never smoker Second Hand Exposure: No ; Hx Alcohol Use: No Hx Substance Use: No Review of Systems Review of Systems: All systems reviewed & are unremarkable except as noted in HPI & below Physical Exam Physical Exam: CONSTITUTIONAL: WNWD, vitals as above, generally well- appearing EYES: normal conjunctivae, no scleral icterus ENT: MMM RESPIRATORY: clear to auscultation bilaterally, no crackles, rales or wheezes, normal respiratory effort CARDIOVASCULAR: tachy rate and irregular rhythm, S1 and 2 heard without murmurs, gallops or rubs, no JVD, no peripheral edema CHEST: inspection of chest was normal GASTROINTESTINAL: soft, nontender, nondistended MUSCULOSKELETAL: strength 5/5 throughout, head is normocephalic and atraumatic SKIN: warm and dry NEUROLOGIC: CN 2-12 grossly intact, normal cognition, normal speech, no gross focal deficits. PSYCHIATRIC: alert cooperative and oriented to person, place and time. Results & Data Vital Signs (Past 12 Hours) Vital Signs Temp Pulse Pulse Resp BP BP Pulse Ox 11/23/18 19:04 73 16 141/71 H 99 11/23/18 17:45 95 11/23/18 17:02 116 H 18 95 11/23/18 16:56 36.9 C 105 H 20 130/69 97 Laboratory Results Short CBC 11/23/18 Range/Units 17:30 WBC 9.07 (4.8-10.8) K/uL Hgb 13.0 (12.0-16.0) g/dL Hct 39.1 (37-47) % Plt Count 249 (130-400) K/uL BMP 11/23/18 17:30 Sodium 140 Potassium 3.4 L Chloride 106 Carbon Dioxide 25 BUN 7 Creatinine 0.84 Glucose 98 Calcium 10.3 H Cardiac Enzymes 11/23/18 Range/Units 17:30 Troponin I < 0.015 (0-0.045) ng/ml Liver Function 11/23/18 Range/Units 17:30 Total Bilirubin 0.6 (0.2-1) mg/dl AST 35 (15-37) U/L ALT 29 (12-78) U/L Alkaline Phosphatase 100 (45-117) U/L Albumin 4.2 (3.4-5.0) gm/dl Diagnostic Findings XR chest 1V portable HISTORY: Atypical Chest Pain COMPARISON: Chest 05/27/2018. FINDINGS: There are low lung volumes. No pneumothorax. No pleural effusions. The heart remains enlarged. There is mild interstitial thickening suggestive of congestive change. This has improved. Cardiac valve prostheses are again noted. There are poststernotomy changes. No new focal lung consolidations to suggest pneumonia. IMPRESSION: Cardiomegaly with slight improvement in the mild congestive change. Code Status & VTE Plan Code Status full VTE Prophylaxis Plan VTE Prophylaxis will be ordered: Yes Critical Care Time Critical Care Time: No
[2018-11-23] MEDS ORDERED: DICYCLOMINE HCL 20 MG TAB PO PRN (19:53)
[2018-11-23] MEDS ORDERED: PANTOprazole 40 MG TAB PO PRN (19:53)
[2018-11-23] MEDS: DOFETILIDE 125 MCG CAPSULE PO SCH (20:33)
[2018-11-23] MEDS: METOPROLOL TARTRATE 25 MG TAB PO SCH (20:33)
[2018-11-23] MEDS: WARFARIN SOD 2 MG TAB PO SCH (21:38)
--- NOTE | 2018-11-23 23:44 | Emergency Department Note ---
Entered by Mary Marshall acting as a scribe for Nelson Winston DO History of Present Illness General Chief complaint: Cardiac Assessment Stated complaint: A FIB, FLUTTER Source: patient History of Present Illness Provider complaint: chest pain Onset (ago): day(s) 3 Location: chest Severity: similar to prior episodes Pain Consistency: + other (persistent) Maximum Pain Intensity: 4 Quality: + other (heaviness) Associated symptoms: + other (+right arm pain) Treatments prior to arrival: other (NTG) The patient is a 73 year old female who presents to the Emergency Room with complaints of persistent chest pain. The patient reports that she was at Dr. Euceda office and was seen by a PA, who referred her to the ED. She states that she has been experiencing chest pain that started on Thursday, along with right sided arm pain. The patient states that the pain feels like heaviness. She reports that she has a history of 2 mechanical valve replacements, one aortic and one mitral in 2001 and 2012. She reports that she has a history of a triple bypass. The patient states that she usually takes Coumadin, but denies taking any today. The patient mentions that she took a dose of NTG prior to arrival, which slightly alleviated her pain. Home Medications Home Medications Medication Instructions Recorded Confirmed Type aspirin [Aspir-81] 81 mg PO QAM 05/27/18 11/23/18 History atorvastatin 20 mg PO MOWEFR 05/27/18 11/23/18 History dicyclomine 20 mg PO QID PRN 05/27/18 11/23/18 History dofetilide 125 mcg PO Q12H 05/27/18 11/23/18 History furosemide 20 mg PO Q OTHER DAY 05/27/18 11/23/18 History metoprolol tartrate 12.5 mg PO HS 05/27/18 11/23/18 History metoprolol tartrate 25 mg PO QAM 05/27/18 11/23/18 History nitroglycerin [Nitrostat] 0.4 mg SUBLINGUAL UD 05/27/18 11/23/18 History omeprazole 20 mg PO QAM PRN 05/27/18 11/23/18 History sertraline 50 mg PO QAM 05/27/18 11/23/18 History warfarin 3 mg PO MOWEFR 05/27/18 11/23/18 History warfarin 2 mg PO SUTUTHSA 11/23/18 11/23/18 History Allergies Allergy/AdvReac Type Severity Reaction Status Date / Time Sulfa (Sulfonamide Allergy Intermediate Rash, hives Verified 11/23/18 19:00 Antibiotics) lidocaine Allergy Unknown HIVES Verified 11/23/18 19:00 levothyroxine AdvReac Intermediate TACHYCARDIA Unverified 11/23/18 19:00 Latex2 -Systemic Allergic Allergy Unknown WHEEZING Uncoded 11/23/18 19:00 Response Past Med/Surg History Medical History IBS (irritable bowel syndrome) (Chronic) Paroxysmal atrial flutter (Chronic) CAD (coronary artery disease) (Chronic) Rheumatic heart disease, on March 04, 2002 patient underwent aortic valve replacement and mitral valve replacement along with CABG x3 with a KIRK to the LAD, right internal mammary artery anastomosis as a free graft to the RCA and a single saphenous vein graft to the diagonal coronary artery and radiofrequency ablation of atrial fibrillation pathways at [facility]. 01/2011 admitted to [facility] secondary to symptomatically A. fib flutter which patient underwent DCCV. Sotalol was started but stopped due to intolerance secondary to nausea and bradycardia. July 2011 Tikosyn loading and successful repeat DCCV. 01/08/12 underwent cardiac catheterization at [facility] and remained on warfarin. Noted to have single-vessel disease 70% mid LAD, 2 of the 3 bypasses were patent. There was obstruction of the SVG to diagonal however, the [place] diagonal had no significant obstruction. 12/24/12 hospitalized at [facility] and underwent redo of mechanical MVR By Dr. Manley. Postop day flutter noted. Tikosyn was discontinued and sent home on amiodarone and metoprolol. 05/3015 admitted to [facility] secondary to symptomatically flutter and tikosyn re-initiated. 11/2015 admitted to [facility] secondary to recurrent symptomatic paroxysmal atrial flutter with RVR, status post DCCV. Anticoagulation goal of INR 2.5 to 3.5 (Chronic) CKD (chronic kidney disease), stage II (Chronic) HTN (hypertension) (Chronic) HLD (hyperlipidemia) (Chronic) Liver cirrhosis secondary to BROWNE (Chronic) Hypothyroidism (Chronic) Rheumatic heart disease (Resolved) Atrial flutter (Acute) CAD (coronary artery disease) (Chronic) Surgical History History of cholecystectomy (Chronic) History of bilateral breast reduction surgery (Chronic) History of partial thyroidectomy (Chronic) S/P AVR (aortic valve replacement) (Chronic) "Mechanical 2002 replace aortic valve 2012 - [facility] - Dr Manley" On 05/25/15 15:41 Mel Quevedo wrote "Mechanical 2002" S/P MVR (mitral valve replacement) (Chronic) "Mechanical 2002" S/P CABG (coronary artery bypass graft) (Chronic) S/P NELLY (total abdominal hysterectomy) (Chronic) removal of L ovary S/P cholecystectomy (Chronic) H/O esophagogastroduodenoscopy (Chronic) Hx of appendectomy (Chronic) History of cholecystectomy (Resolved) Hx of CABG (Resolved) Hx of appendectomy (Resolved) Family History Mother Colorectal cancer Social History Preferred Language: South Korean Communication Ability: Effective Business Rules Developer Required: No Beliefs That Will Affect Care: None Current Living Situation: Spouse Feels Safe at Home: Yes Safety Concerns: Feels Safe At This Time Smoking Status: Never smoker Second Hand Exposure: No ; Hx Alcohol Use: No Hx Substance Use: No Review of Systems See HPI for pertinent positives & negatives. and A total of 10 systems reviewed and were otherwise negative Physical Exam Vital Signs Vital Signs - 24 hr 11/23/18 16:56 11/23/18 17:02 11/23/18 17:45 Temperature 36.9 C Temperature Source Oral Sepsis Recent Fever Within 48 Hours No Sepsis New/Unexplained Change in Mental Status No Sepsis Action Taken by Nursing No Action Required Pulse Rate 105 H 116 H Pulse Rate [Apical] Pulse Rate from SpO2 Sensor Pulse Rhythm Irregular Respiratory Rate 20 18 Respiratory Effort / Characteristics Respiratory Depth Blood Pressure 130/69 Blood Pressure [Left Arm] Blood Pressure Mean 89 Blood Pressure Mean [Left Arm] Blood Pressure Position Sitting Pulse Oximetry 97 95 95 Oxygen Delivery Method Room Air Room Air 11/23/18 19:04 Temperature Temperature Source Sepsis Recent Fever Within 48 Hours Sepsis New/Unexplained Change in Mental Status Sepsis Action Taken by Nursing Pulse Rate 89 Pulse Rate [Apical] 73 Pulse Rate from SpO2 Sensor 104 H Pulse Rhythm Respiratory Rate 27 H Respiratory Effort / Characteristics Non-Labored Respiratory Depth Normal Blood Pressure 141/71 H Blood Pressure [Left Arm] 141/71 H Blood Pressure Mean 94 Blood Pressure Mean [Left Arm] 94 Blood Pressure Position Pulse Oximetry 98 Oxygen Delivery Method Room Air GENERAL: alert, well-appearing for her stated age, sitting up in bed, non-toxic EYE EXAM: normal conjunctiva OROPHARYNX: no exudate, no erythema, lips, buccal mucosa, and tongue normal and mucous membranes are moist NECK: supple, no nuchal rigidity, no adenopathy, non-tender LUNGS: Clear to auscultation. Normal chest wall mechanics HEART: audible clicks, S1 normal and S2 normal ABDOMEN: abdomen soft, non-tender, normo-active bowel sounds, no masses, no rebound or guarding. BACK: Back is symmetrical on inspection and there is no deformity, no midline tenderness, no CVA tenderness. SKIN: no rashes and no bruising UPPER EXTREMITIES: upper extremities are grossly normal. LOWER EXTREMITIES: No pitting edema. Calves are equal bilaterally. NEURO EXAM: Normal sensorium, cranial nerves II-XII grossly intact, normal speech, no gross weakness of arms, no gross weakness of legs. Course ED COURSE: Vital signs were reviewed and showed normotensive. The patients medical record was reviewed: September 17 TTE, 55-60%, AV mechanical prosthesis present, left atrium enlarged. Sent here from [facility] for trans- esophageal echo with cardioversion and questioned pacemaker. The above diagnostic studies were performed and reviewed. ED treatments and interventions as stated above. 1708: The patient was evaluated in room B12A. A complete history and physical examination was performed. 1719: I discussed the patient's case with Dr. Almeida- Cardiology, he states that I should check INR, blood work, and NPO for cardioversion in the morning. 1733: I discussed the patient's case with Yesenia Sharif, Dr. Dong- [facility] will accept the patient for further evaluation. 1740: Upon reevaluation, the patient is resting comfortably. I discussed my findings with the patient and she understands and agrees with the treatment p bra[place]. Based on the patients age, coexisting illnesses, exam and lab findings the decision to treat as an inpatient was made. The patient remained stable while under my care. The patient will be evaluated for further management. Administered Medications Dofetilide (Tikosyn) 125 mcg PO Q12H ARACELI Stop: 12/23/18 19:59 Last Admin: 11/23/18 20:33 Dose: 125 mcg Documented by: [id number] Metoprolol Tartrate (Lopressor) 12.5 mg PO HS ARACELI Stop: 12/23/18 20:59 Last Admin: 11/23/18 20:33 Dose: 12.5 mg Documented by: [id number] Warfarin Sodium (Coumadin) 2 mg PO [id number]@1600 ARACELI Stop: 12/25/18 15:59 Last Admin: 11/23/18 21:38 Dose: 2 mg Documented by: [id number] Discontinued Medications Acetaminophen (Tylenol) 650 mg PO NOW STA Stop: 11/23/18 19:19 Last Admin: 11/23/18 20:24 Dose: 650 mg Documented by: [id number] Nitroglycerin (Nitrostat) 0.4 mg SL NOW STA Stop: 11/23/18 17:12 Last Admin: 11/23/18 17:57 Dose: 0.4 mg Documented by: [id number] Medical Decision Making Differential Diagnosis Differential diagnosis: Etiologies such as cardiac ischemia, aortic dissection, pulmonary embolism, electrolyte abnormality, acidosis, tension pneumothorax, hypothermia, hypovolemia, intracranial event, as well as others were entertained. Medical Records Attestation: I reviewed the patient's medical records. Home Medications Current Medication List: was personally reviewed by me Laboratory Data Attestation: I reviewed the patient's lab results. Result diagrams: 11/23/18 17:30 11/23/18 17:30 Lab Results 11/23/18 11/23/18 11/23/18 Range/Units 17:30 17:30 17:30 WBC 9.07 (4.8-10.8) K/uL RBC 4.55 (4.2-5.4) M/uL Hgb 13.0 (12.0-16.0) g/dL Hct 39.1 (37-47) % MCV 85.9 (80-100) fL MCH 28.6 (25-34) pg MCHC 33.2 (32-36) g/dL RDW Std Deviation 49.8 H (36.4-46.3) fL RDW Coeff of Tammi 15.8 H (11.5-14.5) % Plt Count 249 (130-400) K/uL MPV 11.5 H (7.4-10.4) fL Immature Gran % (Auto) 0.3 % Neut % (Auto) 58.4 % Lymph % (Auto) 30.7 % Dundy % (Auto) 9.6 % Eos % (Auto) 0.7 % Baso % (Auto) 0.3 % Immature Gran # (Auto) 0.03 H (0.00-0.02) K/uL Neut # (Auto) 5.30 (1.4-6.5) K/uL Lymph # (Auto) 2.78 (1.2-3.4) K/uL Dundy # (Auto) 0.87 H (0.11-0.59) K/uL Eos # (Auto) 0.06 (0-0.5) K/uL Baso # (Auto) 0.03 (0-0.2) K/uL PT 29.8 H (9.0-12.0) Seconds INR 3.2 H (0.9-1.1) Sodium 140 (136-145) mmol/L Potassium 3.4 L (3.5-5.1) mmol/L Chloride 106 (98-107) mmol/L Carbon Dioxide 25 (21-32) mmol/L Anion Gap 9.0 (3-11) BUN 7 (7-18) mg/dl Creatinine 0.84 (0.6-1.2) mg/dl Est Cr Clr Drug Dosing 56.4 ml/min Est GFR ( Amer) 79.9 Est GFR (Non-Af Amer) 69.0 BUN/Creatinine Ratio 8.4 L (10-20) Glucose 98 (70-99) mg/dl Calcium 10.3 H (8.5-10.1) mg/dl Total Bilirubin 0.6 (0.2-1) mg/dl AST 35 (15-37) U/L ALT 29 (12-78) U/L Alkaline Phosphatase 100 (45-117) U/L Troponin I < 0.015 (0-0.045) ng/ml Total Protein 8.8 H (6.4-8.2) gm/dl Albumin 4.2 (3.4-5.0) gm/dl Globulin 4.6 H (2.5-4.0) gm/dl Albumin/Globulin Ratio 0.9 (0.9-2) Lipase 150 (73-393) U/L Imaging Data Radiologist's Impression: Radiology results as stated below per my review and the radiologist's interpretation: XR chest 1V portable HISTORY: Atypical Chest Pain COMPARISON: Chest 05/27/2018. FINDINGS: There are low lung volumes. No pneumothorax. No pleural effusions. The heart remains enlarged. There is mild interstitial thickening suggestive of congestive change. This has improved. Cardiac valve prostheses are again noted. There are poststernotomy changes. No new focal lung consolidations to suggest pneumonia. IMPRESSION: Cardiomegaly with slight improvement in the mild congestive change. Electronically signed by: Tito Izaguirre M.D. 11/23/2018 5:28 PM ECG Data Attestation: I personally reviewed and interpreted this ECG as follows: Indication: chest pain Rate (beats per minute): 89 Rhythm: other (atrial flutter with variable block) Findings: + ST depression (inferior and lateral) Comparison ECG Date: from (05/28/18) Change: the following changes noted (A flutter is new) Blood Pressure Blood Pressure Findings: Normal blood pressure Blood Pressure Disposition: did not require urgent referral MDM Narrative Patient is a 73-year-old female who presents the ER for chest pain associated with a flutter and a variable block and some shortness of breath. She was seen at [facility] cardiology and sent over to the ER. She is a past medical history of an aortic valve and mitral valve repair along with a CABG. IV was established blood work was obtained showed no significant leukocytosis or anemia. Therapeutic INR at 3.2. Mild hypokalemia 3.4. Bilirubin LFTs and troponin was negative. Lipase was unremarkable. Chest x-ray without any focal infiltrate. EKG appeared to be unchanged from previous. She was given some nitro resolution of her symptoms. Discussed with cardiology and they recommended admission and n.p.o. after midnight for possible cardioversion xander rrow. Patient was updated bedside and remained stable. Impression & Plan Atrial fibrillation, Chest pain, Shortness of breath Discharge Plan Visit Data *Final* Discharge Date/Time: 11/23/18 19:41 Chief Complaint: Cardiac Assessment Stated Complaint: A FIB, FLUTTER ED Provider: Nelson Winston Discharge Problem: Atrial fibrillation, Chest pain, Shortness of breath Patient Disposition: Admitted As Inpatient Discharge Instructions Interventions: ED Discharge Assessment Last Done: 11/23/18 19:41 Discharge Problem: Atrial fibrillation Qualifiers: Atrial fibrillation type: unspecified Qualified Code(s): I48.91 - Unspecified atrial fibrillation Chest pain Qualifiers: Chest pain type: unspecified Qualified Code(s): R07.9 - Chest pain, unspecified The scribe's documentation has been prepared under my direction and personally reviewed by me in its entirety. I confirm that the note above accurately reflects all work, treatment, procedures, and medical decision making performed by me.
[2018-11-24] MEDS: SODIUM CHLORIDE 0.9% 1000ML 1,000 ML IV SCH ×2 (00:09→08:53)
[2018-11-24 05:08] LABS: Hematocrit (blood only) 38.6 % (37-47); Hemoglobin 12.5 g/dL (12.0-16.0); Mean Corpuscular Hemoglobin 28.6 pg (25-34); Mean Corpuscular Hgb Conc 32.4 g/dL (32-36); Mean Corpuscular Volume 88.3 fL (80-100); Mean Platelet Volume 10.9 fL (7.4-10.4); Platelet Count 227 K/uL (130-400); RDW Coefficient of Variation 15.9 % (11.5-14.5); RDW Standard Deviation 51.4 fL (36.4-46.3); Red Blood Count 4.37 M/uL (4.2-5.4); White Blood Count 8.49 K/uL (4.8-10.8)
[2018-11-24 05:31] LABS: BUN Creatinine Ratio 11.8 (10-20); Blood Urea Nitrogen 9 mg/dl (7-18); Calcium 8.9 mg/dl (8.5-10.1); Carbon Dioxide 27 mmol/L (21-32); Chloride 108 mmol/L (98-107); Creatinine Clr Calc Pharmacy 59.5 ml/min; Est GFR (African American) 86.1; Est GFR (Non-African American) 74.3; Glucose 123 mg/dl (70-99); Potassium 3.6 mmol/L (3.5-5.1); Sodium 141 mmol/L (136-145)
[2018-11-24 05:35] LABS: Troponin I < 0.015 ng/ml (0-0.045)
[2018-11-24] MEDS ORDERED: INFLUENZA VIRUS QUAD VACCINE 0.5 ML SYR IM ONE (08:00)
[2018-11-24] MEDS ORDERED: INFLUENZA ADMINISTRATION CHARGE ONE (08:00)
[2018-11-24] MEDS ORDERED: POTASSIUM CHLORIDE 20 MEQ TABCR PO ONE (08:45)
[2018-11-24 08:53] LABS: INR 2.9 (0.9-1.1); Prothrombin Time 27.2 Seconds (9.0-12.0)
[2018-11-24] MEDS ORDERED: FUROSEMIDE 20 MG TAB PO SCH (09:00)
[2018-11-24] MEDS ORDERED: PROPOFOL IV EMULSION 10 MG/ML 20 ML VIAL IV ONE (09:00)
--- NOTE | 2018-11-24 09:07 | Anesthesiology Consultation ---
Date of Service November 24, 2018 Assessment & Plan (1) Encounter for pre-operative examination: Chart Review Chart Review: Acceptable Risk for Surgery and Patient NOT seen in Pre Admission Testing Consults Requested none History Surgery Operation Date: 11/24/18 09:00 Proposed Procedures p Transesophageal Echo w/Anesthesia - Dillon Almeida DO s Cardioversion w/Anesthesia Sedation - Dillon Almeida DO Height/Weight Height: 5 ft 2 in Weight: 73.3 kg Allergies Allergy/AdvReac Type Severity Reaction Status Date / Time Sulfa (Sulfonamide Allergy Intermediate Rash, hives Verified 11/23/18 19:00 Antibiotics) lidocaine Allergy Unknown HIVES Verified 11/23/18 19:00 levothyroxine AdvReac Intermediate TACHYCARDIA Unverified 11/23/18 19:00 Latex2 -Systemic Allergic Allergy Unknown WHEEZING Uncoded 11/23/18 19:00 Response Medications Home Medications Medication Instructions Recorded Confirmed Last Taken aspirin [Aspir-81] 81 mg PO QAM 05/27/18 11/23/18 05/27/18 atorvastatin 20 mg PO MOWEFR 05/27/18 11/23/18 11/22/18 dicyclomine 20 mg PO QID PRN 05/27/18 11/23/18 Unknown dofetilide 125 mcg PO Q12H 05/27/18 11/23/18 11/23/18 08:00 furosemide 20 mg PO Q OTHER DAY 05/27/18 11/23/18 11/22/18 metoprolol tartrate 12.5 mg PO HS 05/27/18 11/23/18 05/26/18 metoprolol tartrate 25 mg PO QAM 05/27/18 11/23/18 11/23/18 08:00 nitroglycerin [Nitrostat] 0.4 mg SUBLINGUAL UD 05/27/18 11/23/18 Unknown omeprazole 20 mg PO QAM PRN 05/27/18 11/23/18 05/27/18 sertraline 50 mg PO QAM 05/27/18 11/23/18 11/23/18 08:00 warfarin 3 mg PO MOWEFR 05/27/18 11/23/18 11/22/18 22:00 warfarin 2 mg PO SUTUTHSA 11/23/18 11/23/18 Unknown Active Medications Generic Name Dose Route Start Last Admin Trade Name Freq PRN Reason Stop Dose Admin Dofetilide 125 mcg 11/23/18 20:00 11/23/18 20:33 Tikosyn PO 12/23/18 19:59 125 mcg Q12H ARACELI Administration Sodium Chloride 1,000 mls @ 125 mls/hr 11/23/18 23:15 11/24/18 08:53 Nss 1000ml IV 11/24/18 15:14 125 mls/hr .Q8H ARACELI Administration Metoprolol Tartrate 12.5 mg 11/23/18 21:00 11/23/18 20:33 Lopressor PO 12/23/18 20:59 12.5 mg HS ARACELI Administration Warfarin Sodium 2 mg 11/25/18 16:00 11/23/18 21:38 Coumadin PO 12/25/18 15:59 2 mg SuTuThSa@1600 ARACELI Administration Past Medical History Medical History IBS (irritable bowel syndrome) (Chronic) Paroxysmal atrial flutter (Chronic) CAD (coronary artery disease) (Chronic) Rheumatic heart disease, on March 04, 2002 patient underwent aortic valve replacement and mitral valve replacement along with CABG x3 with a KIRK to the LAD, right internal mammary artery anastomosis as a free graft to the RCA and a single saphenous vein graft to the diagonal coronary artery and radiofrequency ablation of atrial fibrillation pathways at [facility]. 01/2011 admitted to [facility] secondary to symptomatically A. fib flutter which patient underwent DCCV. Sotalol was started but stopped due to intolerance secondary to nausea and bradycardia. July 2011 Tikosyn loading and successful repeat DCCV. 01/08/12 underwent cardiac catheterization at [facility] and remained on warfarin. Noted to have single-vessel disease 70% mid LAD, 2 of the 3 bypasses were patent. There was obstruction of the SVG to diagonal however, the ch[place] diagonal had no significant obstruction. 12/24/12 hospitalized at [facility] and underwent redo of mechanical MVR By Dr. Manley. Postop day flutter noted. Tikosyn was discontinued and sent home on amiodarone and metoprolol. 05/3015 admitted to [facility] secondary to symptomatically flutter and tikosyn re-initiated. 11/2015 admitted to [facility] secondary to recurrent symptomatic paroxysmal atrial flutter with RVR, status post DCCV. Anticoagulation goal of INR 2.5 to 3.5 (Chronic) CKD (chronic kidney disease), stage II (Chronic) HTN (hypertension) (Chronic) HLD (hyperlipidemia) (Chronic) Liver cirrhosis secondary to BROWNE (Chronic) Hypothyroidism (Chronic) Rheumatic heart disease (Resolved) Atrial flutter (Acute) CAD (coronary artery disease) (Chronic) Exercise / Class Metabolic Activity III < 4 Walking/Shop/Light housework Past Family History Family History Mother Colorectal cancer Past Surgical History Surgical History History of cholecystectomy (Chronic) History of bilateral breast reduction surgery (Chronic) History of partial thyroidectomy (Chronic) S/P AVR (aortic valve replacement) (Chronic) "Mechanical 2002 replace aortic valve 2012 - [facility] - Dr Manley" On 05/25/15 15:41 Mel Quevedo wrote "Mechanical 2002" S/P MVR (mitral valve replacement) (Chronic) "Mechanical 2002" S/P CABG (coronary artery bypass graft) (Chronic) S/P NELLY (total abdominal hysterectomy) (Chronic) removal of L ovary S/P cholecystectomy (Chronic) H/O esophagogastroduodenoscopy (Chronic) Hx of appendectomy (Chronic) History of cholecystectomy (Resolved) Hx of CABG (Resolved) Hx of appendectomy (Resolved) Past Anesthesia History No Hx of Anesthesia Complications and No Family Hx of Anesthesia Complications History of PONV No Hx of PONV and No Hx of Motion Sickness Social History Smoking Status: Never smoker Hx Alcohol Use: No alcohol intake frequency: holidays/special occasions only Hx Substance Use: No Physical Exam Vital Signs Last Vital Signs Temp 36.4 C L 11/24/18 07:15 Pulse 119 H 11/24/18 07:15 Resp 19 11/24/18 07:15 BP 120/81 11/24/18 07:15 Pulse Ox 98 11/24/18 07:15 Testing Laboratory Results 11/24/18 04:41 11/24/18 04:41 PT 27.2 Seconds (9.0-12.0) H 11/24/18 08:34 INR 2.9 (0.9-1.1) H 11/24/18 08:34 Electrocardiogram Date: 11/24/18 HR 67. Atrial flutter with variable A-V block Septal infarct (cited on or before 23-NOV-2018) Abnormal ECG When compared with ECG of 23-NOV-2018 17:02, (unconfirmed) Nonspecific T wave abnormality, improved in Inferior leads Chest X-Ray Date: 11/23/18 XR chest 1V portable HISTORY: Atypical Chest Pain COMPARISON: Chest 05/27/2018. FINDINGS: There are low lung volumes. No pneumothorax. No pleural effusions. The heart remains enlarged. There is mild interstitial thickening suggestive of congestive change. This has improved. Cardiac valve prostheses are again noted. There are poststernotomy changes. No new focal lung consolidations to suggest pneumonia. IMPRESSION: Cardiomegaly with slight improvement in the mild congestive change.
--- NOTE | 2018-11-24 09:16 | History & Physical Bridge Note ---
Date of Service November 24, 2018 History & Physical Bridge Note I have examined the patient, reviewed the History & Physical and in the interval since the performance of the History & Physical I have noted the following changes of clinical significance: no changes noted. INR at goal last evening and again this am, however had INR of 1.8 on 11/17/18. Will therefore proceed with ASHLEY for risk stratification prior to cardioversion. Informed consent was obtained.Pt elects to proceed.
--- NOTE | 2018-11-24 09:43 | Cardioversion ---
Date of Service November 24, 2018 Electrical Cardioversion Rpt Electrical Cardioversion Report Date of Surgery November 24, 2018 Pre & Post Diagnosis Preprocedure diagnosis: Symptomatic atrial flutter Postprocedure diagnosis: No left atrial or left atrial appendage thrombus, successful conversion to sinus rhythm. Operation Date: 11/24/18 09:00 Procedure After informed consent was obtained and a timeout was performed, the patient was sedated with the assistance of the anesthesia team receiving a total of 150 mg of IV propofol. A focused transesophageal echocardiogram was performed for risk stratification as her INR had been subtherapeutic on 11/17/2018 with level of 1.87 at that time. Her INR yesterday, and today however were at goal. There is no evidence of left atrial or left atrial appendage thrombus. Left ventricular ejection fraction was normal in the range of 55%. The patient therefore underwent synchronized direct-current cardioversion receiving a dose of 200 J of biphasic energy with successful conversion to sinus rhythm in the range of 60 bpm. Plan: Continue prior to hospital doses of metoprolol and dofetilide. Continue Coumadin. Possible discharge later today. Bleach Machine Operator Dillon Almeida DO Sales Mgr BINH Dumont Findings Consistent with Post-Op Diagnosis Anesthesia Type MAC Complications none The patient's post procedure EKG performed on 11/24/2018 at 9:41 AM revealed sinus bradycardia at 57 bpm. Age-indeterminate septal infarction pattern was noted in lead V2, which is unchanged compared to her previous baseline. The corrected QT interval was stable at 465 ms.
--- NOTE | 2018-11-24 09:50 | Cardiology Progress Note ---
Date of Service November 24, 2018 Assessment & Plan (1) Atrial flutter: Successful transesophageal echocardiogram guided direct current cardioversion. Continue prior to hospital doses of metoprolol, dofetilide 125 mcg twice daily. Continue prior to hospital dose of Coumadin. The patient's recent outpatient INR on 11/17/2018 had been 1.87, her Coumadin have been adjusted, and her INR on presentation to the emergency room yesterday on 11/23 was 3.2, and this morning was 2.9. Continue for goal INR range of 2.5- 3.5 given her history of mechanical mitral valve, mechanical aortic valve. As previously noted, the patient has been followed by electrophysiology. The EKG on presentation yesterday is suggestive of recurrent atrial flutter, this is an atypical atrial flutter and appears to originate from the left atrium. Given her history of mechanical mitral valve replacement, it is felt that this would be very technically challenging, and risky in terms of ablation therapy, and ongoing medication therapy and cardioversion as needed are recommended. I believe her recent chest pain is likely due to tachycardia in the setting of known valvular disease and known chronic coronary disease. (2) Prolonged Q-T interval on ECG: The patient's recent baseline corrected QT interval has been around 500 ms on dofetilide 125 mg twice daily. This is been followed closely, and has been felt that the benefits of the medication in terms of symptom medic relief outweigh the risks. Today her QT is well controlled at 465 ms. (3) S/P AVR (aortic valve replacement): (4) S/P MVR (mitral valve replacement): Was well seen on the transesophageal echocardiogram today with normal excursion of the mechanical leaflets, no evidence of thrombus. The aortic valve was less well visualized due to technical limitations, however normal prosthetic disc function appeared present with no thrombus. The LV ejection fraction was normal at 55%. Disposition: Patient be transferred back to room 220 from the heart [place], I will follow-up on her, she feels well after lunch, will consider discharge later today. Subjective Chief complaint: Follow-up palpitations, shortness of breath, chest discomfort Subjective: Patient seen prior to, during, and post transesophageal echocardiogram guided direct current cardioversion today. Patient did well overnight last night. INR on admission yesterday was within the therapeutic range. Review of Systems Review of Systems: All systems reviewed & are unremarkable except as noted in HPI & below Physical Exam Physical Exam: Temp Pulse Resp BP Pulse Ox 36.4 C L 119 H 19 120/81 98 11/24/18 07:15 11/24/18 07:15 11/24/18 07:15 11/24/18 07:15 11/24/18 07:15 Constitutional: WD/WN, vitals as above Respiratory: normal respiratory effort, lungs clear to auscultation Cardiovascular: Rate/Rhythm: regular rhythm Loving prosthetic heart sounds noted No jugular venous distention No edema Gastrointestinal (Abdomen): normal bowel sounds, soft, nontender, no hepatosplenomegaly Skin: no rashes, warm and dry Neurologic: PERRL, EOMI, accommodation nl, no face palsy, no dysarthria Results & Data Vital Signs (Past 12 Hours) Vital Signs Temp Pulse Pulse Resp BP BP Pulse Ox 11/24/18 07:15 36.4 C L 119 H 19 120/81 98 11/24/18 03:17 36.4 C L 74 16 119/59 L 96 11/24/18 00:10 87 11/23/18 23:58 36.7 C 103 H 18 102/61 98 Laboratory Results Cardiac Enzymes 11/23/18 11/23/18 11/24/18 Range/Units 17:30 22:39 04:41 AST 35 (15-37) U/L Troponin I < 0.015 < 0.015 < 0.015 (0-0.045) ng/ml Coagulation 11/23/18 11/24/18 Range/Units 17:30 08:34 PT 29.8 H 27.2 H (9.0-12.0) Seconds CBC 11/23/18 11/24/18 Range/Units 17:30 04:41 WBC 9.07 8.49 (4.8-10.8) K/uL RBC 4.55 4.37 (4.2-5.4) M/uL Hgb 13.0 12.5 (12.0-16.0) g/dL Hct 39.1 38.6 (37-47) % Plt Count 249 227 (130-400) K/uL Neut # (Auto) 5.30 (1.4-6.5) K/uL Lymph # (Auto) 2.78 (1.2-3.4) K/uL [place] # (Auto) 0.87 H (0.11-0.59) K/uL Eos # (Auto) 0.06 (0-0.5) K/uL Baso # (Auto) 0.03 (0-0.2) K/uL Comprehensive Metabolic Panel 11/23/18 11/24/18 Range/Units 17:30 04:41 Sodium 140 141 (136-145) mmol/L Potassium 3.4 L 3.6 (3.5-5.1) mmol/L Chloride 106 108 H (98-107) mmol/L Carbon Dioxide 25 27 (21-32) mmol/L BUN 7 9 (7-18) mg/dl Creatinine 0.84 0.79 (0.6-1.2) mg/dl Glucose 98 123 H (70-99) mg/dl Calcium 10.3 H 8.9 (8.5-10.1) mg/dl AST 35 (15-37) U/L ALT 29 (12-78) U/L Alkaline Phosphatase 100 (45-117) U/L Total Protein 8.8 H (6.4-8.2) gm/dl Albumin 4.2 (3.4-5.0) gm/dl Intake and Output 11/23/18 11/24/18 11/24/18 22:59 06:59 14:59 Intake Total 150 / 150 1000 / 1000 Output Total 500 / 500 Balance 150 / -350 -500 / -350 1000 / 1000 Intake: IV 1000 / 1000 Nss 1000ML 1,000 ml @ 125 mls/ 1000 / 1000 hr IV .Q8H [facility] Rx#:[id number] Oral 150 / 150 Output: Urine 500 / 500 Other: Other Intake Source npo # Unmeasured Voids 2 Weight 73.3 kg 73.3 kg Patient Weight 11/25/18 06:59 Weight 73.3 kg Diagnostic Findings EKG performed this morning post cardioversion on 11/24/2018 reviewed independently: Sinus bradycardia at 57 bpm with first-degree AV block, OK interval 208 ms, age- indeterminate septal infarction pattern noted in lead V2, unchanged compared to her prior. Mild nonspecific repolarization changes, unchanged compared to her prior baseline. The corrected QT interval was stable at 465 ms. Medications Administered Current Inpatient Medications Acetaminophen (Tylenol) 650 mg PO Q4H PRN PRN Reason: Pain or Fever Stop: 12/23/18 19:10 Aspirin (Ecotrin Ectab) 81 mg PO QAM [facility] Stop: 12/24/18 08:59 Atorvastatin Calcium (Lipitor) 20 mg PO MoWeFr@0900 [facility] Stop: 12/24/18 08:59 Dicyclomine HCl (Bentyl) 20 mg PO QID PRN PRN Reason: Abdominal Discomfort Stop: 12/23/18 19:52 Dofetilide (Tikosyn) 125 mcg PO Q12H [facility] Stop: 12/23/18 19:59 Last Admin: 11/23/18 20:33 Dose: 125 mcg Documented by: Furosemide (Lasix) 20 mg PO Q2D@0900 [facility] Stop: 12/24/18 08:59 Sodium Chloride (Nss 1000ml) 1,000 mls @ 125 mls/hr IV .Q8H [facility] Stop: 11/24/18 15:14 Last Admin: 11/24/18 08:53 Dose: 125 mls/hr Documented by: Metoprolol Tartrate (Lopressor) 12.5 mg PO HS [facility] Stop: 12/23/18 20:59 Last Admin: 11/23/18 20:33 Dose: 12.5 mg Documented by: Metoprolol Tartrate (Lopressor) 25 mg PO QAM [facility] Stop: 12/24/18 08:59 Nitroglycerin (Nitrostat) 0.4 mg SL UD PRN PRN Reason: Chest Pain Stop: 12/23/18 19:10 Pantoprazole Sodium (Protonix) 40 mg PO QAM PRN PRN Reason: Acid Reflux Stop: 12/23/18 19:52 Polyethylene Glycol (Miralax Powder Packet) 17 gm PO DAILY PRN PRN Reason: Constipation Stop: 12/23/18 19:10 Sertraline HCl (Zoloft) 50 mg PO QAM [facility] Stop: 12/24/18 08:59 Warfarin Sodium (Coumadin) 2 mg PO SuTuThSa@1600 [facility] Stop: 12/25/18 15:59 Last Admin: 11/23/18 21:38 Dose: 2 mg Documented by: Warfarin Sodium (Coumadin) 3 mg PO MoWeFr@1600 [facility] Stop: 12/24/18 15:59
--- NOTE | 2018-11-24 09:57 | Anesthesiology Progress Note ---
Date of Service November 24, 2018 Anesthesia Post Procedure Vital Signs Vital Signs: Temp Pulse Pulse Resp BP BP BP 11/24/18 07:15 36.4 C L 119 H 19 120/81 11/24/18 03:17 36.4 C L 74 16 119/59 L 11/24/18 00:10 87 11/23/18 23:58 36.7 C 103 H 18 102/61 11/23/18 20:30 36.5 C 115 H 18 119/77 11/23/18 19:30 64 14 139/89 11/23/18 19:04 89 73 27 H 141/71 H 141/71 H 11/23/18 17:45 11/23/18 17:02 116 H 18 11/23/18 16:56 36.9 C 105 H 20 130/69 Pulse Ox 11/24/18 07:15 98 11/24/18 03:17 96 11/24/18 00:10 11/23/18 23:58 98 11/23/18 20:30 95 11/23/18 19:30 99 11/23/18 19:04 98 11/23/18 17:45 95 11/23/18 17:02 95 11/23/18 16:56 97 Pain Intensity Chest: Pain Intensity: 4 Transfer of Care Handoff Completed per policy Notes Mental Status: alert / awake / arousable and participated in evaluation Patient Amnestic to Procedure: Yes Nausea / Vomiting: adequately controlled Pain: adequately controlled Airway Patency, RR, SpO2: stable & adequate BP & HR: stable & adequate Hydration State: stable & adequate Anesthetic Complications: no major complications apparent and Pt Satisfied with anesthetic care
--- NOTE | 2018-11-24 09:58 | Communication Note ---
Date of Service: November 24, 2018 Pt was noted to revert back to AFL on portable threat monitoring analyst while being transferred from the cardiac procedure center to PCU. Will administer am dose of metoprolol and dofetilide and observe.
[2018-11-24] MEDS: METOPROLOL TARTRATE 25 MG TAB PO SCH ×2 (10:00→20:15)
[2018-11-24] MEDS: DOFETILIDE 125 MCG CAPSULE PO SCH ×2 (10:00→20:15)
[2018-11-24] MEDS: ASPIRIN 81 MG ECTAB PO SCH (10:54)
[2018-11-24] MEDS: ATORVASTATIN 20 MG TAB PO SCH (10:54)
[2018-11-24] MEDS: SERTRALINE HCL 50 MG TABLET PO SCH (10:55)
[2018-11-24] MEDS ORDERED: TRAMADOL HCL 50 MG TABLET PO PRN (11:18)
--- NOTE | 2018-11-24 11:27 | Hospitalist Progress Note ---
Date of Service November 24, 2018 Assessment & Plan (1) Paroxysmal atrial flutter: Unsuccessful ASHLEY cardioversion this morning. Continue metoprolol and Tikosyn and await further recommendations by cardiology. Chest pain is still present and serial troponin enzymes were negative overnight ruling out ACS. Pain is likely secondary to the atrial flutter rhythm. (2) Abdominal tenderness: New right upper quadrant tenderness began this morning sometime after awakening. Described as intermittent stabbing. Uncertain etiology. To investigate will get a CT abdomen/pelvis with ongoing diarrhea and in the setting of left lower quadrant pain. Will also add a liver panel to a.m. labs. (3) Diarrhea: Persistent and now with some abdominal tenderness. Stool studies are pending. CT abdomen pelvis ordered for this morning. No bowel movement this morning. Hold IV fluids, hold Lasix. (4) Prolonged Q-T interval on ECG: On Tikosyn. QTC this morning is 46, within normal range. (5) CAD (coronary artery disease): appears stable. Cont medical management of CAD. (6) S/P AVR (aortic valve replacement): (7) S/P MVR (mitral valve replacement): coumadin continued with INR goal 2.5-3.5. She is at goal with INR 2.9 this morning. (8) DVT prophylaxis: coumadin full code dispo-continue telemetry monitoring, await further cardiac recommendations. Marianela Dong DO [facility] hospitalist Subjective . 73-year-old female with known atrial flutter presented after persistent severe chest pain episode and persistent discomfort x2 weeks. She also reports diarrhea twice daily for the past 4 weeks. She is now reporting some right upper quadrant tenderness that is described as a intermittent stabbing. No obvious precipitating or alleviating factors. She also had some left lower qu adrant tenderness on exam. She was offered pain medication and is opting to try Tylenol at this point. She reports persistent chest pain overnight despite some Tylenol use. Serial cardiac enzymes were negative and she underwent a ASHLEY cardioversion this morning that was unsuccessful. She is denying any hunger. She reports getting a stool sample last night but this is not pending in the computer. Nurse is trying to work this out and to get another sample. Denies other symptoms at this time. Review of Systems Review of Systems: All systems reviewed & are unremarkable except as noted in HPI & below Physical Exam Physical Exam: CONSTITUTIONAL: WNWD, vitals as above, generally well- appearing EYES: normal conjunctivae, no scleral icterus ENT: MMM RESPIRATORY: clear to auscultation bilaterally, no crackles, rales or wheezes, normal respiratory effort CARDIOVASCULAR: tachy rate and irregular rhythm, S1 and 2 heard without murmurs, gallops or rubs, no JVD, no peripheral edema CHEST: inspection of chest was normal GASTROINTESTINAL: soft, RUQ TTP with some guarding, LLQ TTP. MUSCULOSKELETAL: strength 5/5 throughout, head is normocephalic and atraumatic SKIN: warm and dry NEUROLOGIC: CN 2-12 grossly intact, normal cognition, normal speech, no gross focal deficits. PSYCHIATRIC: alert cooperative and oriented to person, place and time Results & Data Vital Signs (Past 12 Hours) Vital Signs Temp Pulse Pulse Pulse Resp BP BP 11/24/18 11:00 36.7 C 105 H 19 138/85 11/24/18 10:01 36.6 C 110 H 18 127/79 11/24/18 07:15 36.4 C L 119 H 19 120/81 11/24/18 03:17 36.4 C L 74 16 119/59 L 11/24/18 00:10 87 11/23/18 23:58 36.7 C 103 H 18 102/61 Pulse Ox 11/24/18 11:00 100 11/24/18 10:01 94 11/24/18 07:15 98 11/24/18 03:17 96 11/24/18 00:10 11/23/18 23:58 98 Laboratory Results Short CBC 11/23/18 11/24/18 Range/Units 17:30 04:41 WBC 9.07 8.49 (4.8-10.8) K/uL Hgb 13.0 12.5 (12.0-16.0) g/dL Hct 39.1 38.6 (37-47) % Plt Count 249 227 (130-400) K/uL BMP 11/23/18 11/24/18 17:30 04:41 Sodium 140 141 Potassium 3.4 L 3.6 Chloride 106 108 H Carbon Dioxide 25 27 BUN 7 9 Creatinine 0.84 0.79 Glucose 98 123 H Calcium 10.3 H 8.9 Cardiac Enzymes 11/23/18 11/23/18 11/24/18 Range/Units 17:30 22:39 04:41 Troponin I < 0.015 < 0.015 < 0.015 (0-0.045) ng/ml Liver Function 11/23/18 Range/Units 17:30 Total Bilirubin 0.6 (0.2-1) mg/dl AST 35 (15-37) U/L ALT 29 (12-78) U/L Alkaline Phosphatase 100 (45-117) U/L Albumin 4.2 (3.4-5.0) gm/dl Medications Administered Current Inpatient Medications Acetaminophen (Tylenol) 650 mg PO Q4H PRN PRN Reason: Pain or Fever Stop: 12/23/18 19:10 Acetaminophen (Tylenol) 650 mg PO NOW ONE Stop: 11/24/18 11:31 [facility] ([facility]) [facility] [place] Stop: 12/24/18 08:59 Last Admin: 11/24/18 10:54 Dose: 81 mg Documented by: Atorvastatin Calcium (Lipitor) 20 mg PO MoWeFr@09 [facility] Stop: 12/24/18 08:59 Last Admin: 11/24/18 10:54 Dose: 20 mg Documented by: Dicyclomine HCl (Bentyl) 20 mg PO QID PRN PRN Reason: Abdominal Discomfort Stop: 12/23/18 19:52 Last Admin: 11/24/18 10:55 Dose: 20 mg Documented by: Dofetilide (Tikosyn) 125 mcg PO Q12H [facility] Stop: 12/23/18 19:59 Last Admin: 11/24/18 10:00 Dose: 125 mcg Documented by: Furosemide (Lasix) 20 mg PO Q2D@0900 [facility] Stop: 12/24/18 08:59 Metoprolol Tartrate (Lopressor) 12.5 mg PO HS [facility] Stop: 12/23/18 20:59 Last Admin: 11/23/18 20:33 Dose: 12.5 mg Documented by: Metoprolol Tartrate (Lopressor) 25 mg PO QAM [facility] Stop: 12/24/18 08:59 Last Admin: 11/24/18 10:00 Dose: 25 mg Documented by: Nitroglycerin (Nitrostat) 0.4 mg SL UD PRN PRN Reason: Chest Pain Stop: 12/23/18 19:10 Pantoprazole Sodium (Protonix) 40 mg PO QAM PRN PRN Reason: Acid Reflux Stop: 12/23/18 19:52 Polyethylene Glycol (Miralax Powder Packet) 17 gm PO DAILY PRN PRN Reason: Constipation Stop: 12/23/18 19:10 Sertraline HCl (Zoloft) 50 mg PO QAM [facility] Stop: 12/24/18 08:59 Last Admin: 11/24/18 10:55 Dose: 50 mg Documented by: Tramadol HCl (Ultram) 25 mg PO Q6H PRN PRN Reason: pain Stop: 12/24/18 11:29 Warfarin Sodium (Coumadin) 2 mg PO SuTuThSa@1600 [facility] Stop: 12/25/18 15:59 Last Admin: 11/23/18 21:38 Dose: 2 mg Documented by: Warfarin Sodium (Coumadin) 3 mg PO MoWeFr@1600 [facility] Stop: 12/24/18 15:59
[2018-11-24] MEDS ORDERED: ACETAMINOPHEN 325 MG TAB PO ONE (11:30)
[2018-11-24 11:49] LABS: Albumin Level 3.7 gm/dl (3.4-5.0); Bilirubin Direct 0.1 mg/dl (0-0.2); Bilirubin,Total 0.6 mg/dl (0.2-1); Total Protein 7.9 gm/dl (6.4-8.2)
[2018-11-24] MEDS ORDERED: DOFETILIDE 125 MCG CAPSULE PO STA (12:20)
[2018-11-24] MEDS ORDERED: MAGNESIUM SULFATE / D5W 1 GM/100 ML BAG IV ONE (12:45)
--- NOTE | 2018-11-24 14:20 | CT Scan Report ---
ABDOMEN AND PELVIS CT WITHOUT CONTRAST CT DOSE: 515.00 mGy.cm HISTORY: Acute right upper quadrant abdominal pain RUQ and LLQ abdominal pain, acute, +diarrhea x 4w k TECHNIQUE: Multiaxial CT images of the abdomen and pelvis were performed without contrast. A dose lo wering technique was utilized adhering to the principles of ALARA. COMPARISON STUDY: CT abdomen and pelvis 06/01/2016 FINDINGS: Trace pleural effusions. Bibasilar intralobular septal thickening with groundglass densities. No pneu matosis or pneumoperitoneum. Moderate cardiomegaly. Prior median sternotomy with prosthetic mitral va lve. No pericardial effusion. Limited evaluation of the solid abdominal organs without the use of IV contrast. Hepatic steatosis without evidence of cirrhosis or focal hepatic mass lesion. Cholecystecto my. Spleen and adrenal glands are unremarkable. Mild generalized pancreatic atrophy. Mild nonspecific bilateral perinephric stranding. Ureters are unremarkable. Partial distention of the urinary bladder with mild wall thickening and perivesicular stranding. No hydronephrosis. Hysterectomy. No adnexal m ass lesions. Callus 5 plaque of the abdominal aorta without aneurysm. There are a few scattered nonsp ecific prominent para-aortic lymph nodes. Surgical clips are seen about the right inguinal tissues. No bowel obstruction or bowel wall thickening. Scattered hyperdense material noted within several loo ps of small bowel. Scattered air-fluid levels are noted throughout the large bowel. Colonic diverticu losis without acute diverticulitis. Ileocecal valve noted about the right hemipelvis. The appendix is not definitively seen it is likely surgically absent as reported. Subxiphoid fat filled hernia, 4.1 cm diastases. Soft tissues are unremarkable. Bones appear to be intact. Facet arthrosis with spondyli tic spurring. IMPRESSION: 1. Air-fluid levels throughout the large bowel are suggestive of diarrheal illness. 2. No bowel obstruction or bowel wall thickening. 3. Prior hysterectomy, cholecystectomy and appendectomy. 4. Hepatic steatosis. 5. Small to moderate subxiphoid fat filled ventral abdominal wall hernia. 6. Cardiomegaly with trace pleural effusions and probable pulmonary edema. 7. Additional findings as above. Electronically signed by: Easton Griggs M.D. 11/24/2018 2:18 PM
[2018-11-24] MEDS ORDERED: dilTIAZem HCl 5 MG/ML 5 ML VIAL IV STA (14:59)
[2018-11-24] MEDS ORDERED: WARFARIN SOD 1 MG TAB PO SCH (16:00)
[2018-11-24] MEDS ORDERED: dilTIAZem HCL 125 MG in DEXTROSE 5% 100 ML IV SCH (16:45)
--- NOTE | 2018-11-24 17:18 | Communication Note ---
Date of Service: November 24, 2018 Remains in rate controlled atrial flutter. Will start low dose diltiazem infusion. NPO after midnight.
[2018-11-24] MEDS: WARFARIN SOD 3 MG TAB PO SCH (17:21)
[2018-11-25 06:46] LABS: Prothrombin Time 28.1 Seconds (9.0-12.0)
[2018-11-25] MEDS: SERTRALINE HCL 50 MG TABLET PO SCH (08:35)
[2018-11-25] MEDS: ASPIRIN 81 MG ECTAB PO SCH (08:36)
[2018-11-25] MEDS: DOFETILIDE 125 MCG CAPSULE PO SCH ×2 (08:36→20:45)
[2018-11-25] MEDS: METOPROLOL TARTRATE 25 MG TAB PO SCH ×2 (08:37→20:45)
--- NOTE | 2018-11-25 08:40 | Anesthesiology Progress Note ---
Date of Service November 25, 2018 Anesthesia Post Procedure Vital Signs Vital Signs: Temp Pulse Resp BP BP Pulse Ox 11/25/18 07:14 36.5 C 103 H 18 131/78 96 11/25/18 03:46 36.4 C L 78 16 91/57 L 98 11/24/18 23:44 36.5 C 51 L 16 101/67 100 11/24/18 19:12 36.9 C 107 H 18 112/68 95 11/24/18 15:16 36.8 C 108 H 18 108/71 96 11/24/18 11:00 36.7 C 105 H 19 138/85 100 11/24/18 10:01 36.6 C 110 H 18 127/79 94 Pain Intensity Chest: Pain Intensity: 4 Right Abdomen: Pain Intensity: 3 Notes Mental Status: alert / awake / arousable and participated in evaluation Patient Amnestic to Procedure: Yes Nausea / Vomiting: adequately controlled Pain: adequately controlled Airway Patency, RR, SpO2: stable & adequate BP & HR: stable & adequate Hydration State: stable & adequate Anesthetic Complications: no major complications apparent and Pt Satisfied with anesthetic care
--- NOTE | 2018-11-25 09:36 | Cardiology Progress Note ---
Date of Service November 25, 2018 Assessment & Plan (1) Atrial flutter: Patient has long-standing history of traumatic heart disease with subsequent mechanical mitral valve replacement and mechanical aortic valve replacement (AVR x 2). She has had a history of complex atrial arrhythmias for years. I had first performed a direct-current cardioversion on her in 2010. Typically her rhythm is been well controlled with medication plus direct-current cardioversion. EKG suggests atypical left-sided atrial flutter, and catheter ablation would be technically complex and high risk due to its presumed proximity to the mechanical mitral valve and therefore electrophysiology has recommended ongoing medication therapy in the past. She has done well on dofetilide 125 mcg twice daily for years, however the dose is limited due to baseline QT interval in the range of 500 ms and therefore she has not been a candidate for higher dose therapy. Treatment with metoprolol has been limited by her baseline sinus bradycardia. I discussed options with her. She did not tolerate a course of amiodarone in the past, however she also may have felt poorly while she was recovering from her aortic valve surgery, and she also had a known gastric ulcer in and around that time, so her generalized illness may been due to other issues than the amiodarone. Treatment amiodarone however was also noted to be limited by sinus bradycardia. At this time, recommend recurrent trial of direct-current cardioversion having had additional medication over the last 24 hours. Future considerations include pacemaker implantation to allow more aggressive medication therapy, but I am not certain that beta-natacha therapy alone would actually eliminate her symptoms because I am not confident that increase beta- natacha dose plus pacemaker support for heart rate would help her maintain sinus rhythm and she definitely feels better when she has AV synchrony. Pacemaker plus AV junction ablation I feel is also perhaps not ideal at this point because she would lose AV synchrony. All these complex issues were discussed the patient and her . She is agreeable to cardioversion. We will proceed as scheduling allows. Anesthesia consult placed. Subjective Chief complaint: Follow-up palpitations, generalized fatigue, chest heaviness Subjective: Patient had reverted back to atrial flutter within a few minutes after transesophageal echocardiogram guided direct current cardioversion yesterday while she is being transferred from the procedure room back to the telemetry unit. She remains in atrial flutter with ventricular rates in the 90 bpm range at rest. Low-dose diltiazem infusion was initiated overnight last night, but she remains in atrial flutter. Review of Systems Review of Systems: All systems reviewed & are unremarkable except as noted in HPI & below Physical Exam Physical Exam: Temp Pulse Resp BP Pulse Ox 36.5 C 103 H 18 131/78 96 11/25/18 07:14 11/25/18 07:14 11/25/18 07:14 11/25/18 07:14 11/25/18 07:14 Constitutional: WD/WN, vitals as above Respiratory: normal respiratory effort, lungs clear to auscultation Cardiovascular: Rate/Rhythm: + irregularly irregular Extremities: no edema [place] prosthetic heart valve sounds noted Gastrointestinal (Abdomen): normal bowel sounds, soft, nontender, no hepatosplenomegaly Neurologic: PERRL, EOMI, accommodation nl, no face palsy, no dysarthria Results & Data Vital Signs (Past 12 Hours) Vital Signs Temp Pulse Resp BP BP Pulse Ox 11/25/18 07:14 36.5 C 103 H 18 131/78 96 11/25/18 03:46 36.4 C L 78 16 91/57 L 98 11/24/18 23:44 36.5 C 51 L 16 101/67 100
[2018-11-25] MEDS: ACETAMINOPHEN 500 MG TAB PO SCH ×3 (09:46→22:08)
[2018-11-25] MEDS ORDERED: PROPOFOL IV EMULSION 10 MG/ML 20 ML VIAL IV ONE (10:14)
--- NOTE | 2018-11-25 10:24 | Anesthesiology Consultation ---
Date of Service November 25, 2018 Assessment & Plan (1) Encounter for pre-operative examination: Chart Review Chart Review: Acceptable Risk for Surgery and Patient NOT seen in Pre Admission Testing Consults Requested none History Surgery Operation Date: 11/24/18 09:00 Proposed Procedures p Transesophageal Echo w/Anesthesia - Dillon Almeida DO s Cardioversion w/Anesthesia Sedation - Dillon Almeida DO Operation Date: 11/25/18 10:15 Proposed Procedures p Cardioversion - Dillon Almeida DO Height/Weight Height: 5 ft 2 in Weight: 74.5 kg Allergies Allergy/AdvReac Type Severity Reaction Status Date / Time Sulfa (Sulfonamide Allergy Intermediate Rash, hives Verified 11/23/18 19:00 Antibiotics) lidocaine Allergy Unknown HIVES Verified 11/23/18 19:00 levothyroxine AdvReac Intermediate TACHYCARDIA Unverified 11/23/18 19:00 Latex2 -Systemic Allergic Allergy Unknown WHEEZING Uncoded 11/23/18 19:00 Response Medications Home Medications Medication Instructions Recorded Confirmed Last Taken aspirin [Aspir-81] 81 mg PO QAM 05/27/18 11/23/18 05/27/18 atorvastatin 20 mg PO MOWEFR 05/27/18 11/23/18 11/22/18 dicyclomine 20 mg PO QID PRN 05/27/18 11/23/18 Unknown dofetilide 125 mcg PO Q12H 05/27/18 11/23/18 11/23/18 08:00 furosemide 20 mg PO Q OTHER DAY 05/27/18 11/23/18 11/22/18 metoprolol tartrate 12.5 mg PO HS 05/27/18 11/23/18 05/26/18 metoprolol tartrate 25 mg PO QAM 05/27/18 11/23/18 11/23/18 08:00 nitroglycerin [Nitrostat] 0.4 mg SUBLINGUAL UD 05/27/18 11/23/18 Unknown omeprazole 20 mg PO QAM PRN 05/27/18 11/23/18 05/27/18 sertraline 50 mg PO QAM 05/27/18 11/23/18 11/23/18 08:00 warfarin 3 mg PO MOWEFR 05/27/18 11/23/18 11/22/18 22:00 warfarin 2 mg PO SUTUTHSA 11/23/18 11/23/18 Unknown Active Medications Generic Name Dose Route Start Last Admin Trade Name Freq PRN Reason Stop Dose Admin Acetaminophen 1,000 mg 11/25/18 09:30 11/25/18 09:46 Tylenol PO 12/25/18 09:29 1,000 mg Q8 ARACELI Administration Aspirin 81 mg 11/24/18 09:00 11/25/18 08:36 Ecotrin Ectab PO 12/24/18 08:59 81 mg QAM ARACELI Administration Atorvastatin Calcium 20 mg 11/24/18 09:00 11/24/18 10:54 Lipitor PO 12/24/18 08:59 20 mg MoWeFr@0900 ARACELI Administration Dicyclomine HCl 20 mg 11/23/18 19:53 11/24/18 10:55 Bentyl PO 12/23/18 19:52 20 mg QID PRN Administration Abdominal Discomfort Dofetilide 125 mcg 11/23/18 20:00 11/25/18 08:36 Tikosyn PO 12/23/18 19:59 125 mcg Q12H ARACELI Administration Metoprolol Tartrate 12.5 mg 11/23/18 21:00 11/24/18 20:15 Lopressor PO 12/23/18 20:59 12.5 mg HS ARACELI Administration Metoprolol Tartrate 25 mg 11/24/18 09:00 11/25/18 08:37 Lopressor PO 12/24/18 08:59 25 mg QAM ARACELI Administration Sertraline HCl 50 mg 11/24/18 09:00 11/25/18 08:35 Zoloft PO 12/24/18 08:59 50 mg QAM ARACELI Administration Warfarin Sodium 2 mg 11/25/18 16:00 11/23/18 21:38 Coumadin PO 12/25/18 15:59 2 mg [id number]@1600 ARACELI Administration Warfarin Sodium 3 mg 11/24/18 16:00 11/24/18 17:21 Coumadin PO 12/24/18 15:59 3 mg [email or web address]@1600 ARACELI Administration NPO Date Last Intake of Fluids: 11/23/18 Time Last Intake of Fluids: 20:00 Date Last Intake of Solids: 11/23/18 Time Last Intake of Solids: 20:00 Past Medical History Medical History IBS (irritable bowel syndrome) (Chronic) Paroxysmal atrial flutter (Chronic) CAD (coronary artery disease) (Chronic) Rheumatic heart disease, on March 04, 2002 patient underwent aortic valve replacement and mitral valve replacement along with CABG x3 with a KIRK to the LAD, right internal mammary artery anastomosis as a free graft to the RCA and a single saphenous vein graft to the diagonal coronary artery and radiofrequency ablation of atrial fibrillation pathways at [facility]. 01/[address] [facility] secondary to symptomatically A. fib flutter which patient underwent DCCV. Sotalol was started but stopped due to intolerance secondary to nausea and bradycardia. July 2011 Tikosyn loading and successful repeat DCCV. 01/08/12 underwent cardiac catheterization at [facility] and remained on warfarin. Noted to have single-vessel disease 70% mid LAD, 2 of the 3 bypasses were patent. There was obstruction of the SVG to diagonal however, the [place] had no significant obstruction. 12/24/12 hospitalized at [facility] and underwent redo of mechanical MVR By Dr. Manley. Postop day flutter noted. Tikosyn was discontinued and sent home on amiodarone and metoprolol. 05/[address] [facility] secondary to symptomatically flutter and tikosyn re-initiated. 11/[address] [facility] secondary to recurrent symptomatic paroxysmal atrial flutter with RVR, status post DCCV. Anticoagulation goal of INR 2.5 to 3.5 (Chronic) CKD (chronic kidney disease), stage II (Chronic) HTN (hypertension) (Chronic) HLD (hyperlipidemia) (Chronic) Liver cirrhosis secondary to BROWNE (Chronic) Hypothyroidism (Chronic) Rheumatic heart disease (Resolved) Atrial flutter (Acute) CAD (coronary artery disease) (Chronic) Exercise / Class Metabolic Activity II 4-5 Yardwork/Stairs/Walk up hill Past Family History Family History Mother Colorectal cancer Past Surgical History Surgical History History of cholecystectomy (Chronic) History of bilateral breast reduction surgery (Chronic) History of partial thyroidectomy (Chronic) S/P AVR (aortic valve replacement) (Chronic) "Mechanical 2003 replace aortic valve 2012 - [facility] - Dr Manley" On 05/25/15 15:41 Mel Quevedo wrote "Mechanical 2002" S/P MVR (mitral valve replacement) (Chronic) "Mechanical 2002" S/P CABG (coronary artery bypass graft) (Chronic) S/P NELLY (total abdominal hysterectomy) (Chronic) removal of L ovary S/P cholecystectomy (Chronic) H/O esophagogastroduodenoscopy (Chronic) Hx of appendectomy (Chronic) History of cholecystectomy (Resolved) Hx of CABG (Resolved) Hx of appendectomy (Resolved) Past Anesthesia History No Hx of Anesthesia Complications and No Family Hx of Anesthesia Complications History of PONV No Hx of PONV and No Hx of Motion Sickness Social History Smoking Status: Never smoker Hx Alcohol Use: No alcohol intake frequency: holidays/special occasions only Hx Substance Use: No substance use type: does not use Physical Exam Vital Signs Last Vital Signs Temp 36.7 C 11/25/18 10:15 Pulse 82 11/25/18 10:15 Resp 17 11/25/18 10:15 BP 151/86 H 11/25/18 10:15 Pulse Ox 97 11/25/18 10:15 Testing Laboratory Results 11/24/18 04:41 11/24/18 04:41 PT 28.1 Seconds (9.0-12.0) H 11/25/18 06:07 INR 3.0 (0.9-1.1) H 11/25/18 06:07 Electrocardiogram Date: 11/24/18 HR 67. Atrial flutter with variable A-V block Septal infarct (cited on or before 23-NOV-2018) Abnormal ECG When compared with ECG of 23-NOV-2018 17:02, (unconfirmed) Nonspecific T wave abnormality, improved in Inferior leads Chest X-Ray Date: 11/23/18 XR chest 1V portable HISTORY: Atypical Chest Pain COMPARISON: Chest 05/27/2018. FINDINGS: There are low lung volumes. No pneumothorax. No pleural effusions. The heart remains enlarged. There is mild interstitial thickening suggestive of congestive change. This has improved. Cardiac valve prostheses are again noted. There are poststernotomy changes. No new focal lung consolidations to suggest pneumonia. IMPRESSION: Cardiomegaly with slight improvement in the mild congestive change.
--- NOTE | 2018-11-25 10:42 | Anesthesiology Progress Note ---
Date of Service November 25, 2018 Anesthesia Post Procedure Vital Signs Vital Signs: Temp Pulse Pulse Resp BP BP Pulse Ox 11/25/18 10:38 56 L 15 115/78 97 11/25/18 10:15 36.7 C 82 17 151/86 H 97 11/25/18 07:14 36.5 C 103 H 18 131/78 96 11/25/18 03:46 36.4 C L 78 16 91/57 L 98 11/24/18 23:44 36.5 C 51 L 16 101/67 100 11/24/18 19:12 36.9 C 107 H 18 112/68 95 11/24/18 15:16 36.8 C 108 H 18 108/71 96 11/24/18 11:00 36.7 C 105 H 19 138/85 100 Pain Intensity Chest: Pain Intensity: 4 Right Abdomen: Pain Intensity: 3 Transfer of Care Handoff Completed per policy Notes Mental Status: alert / awake / arousable and participated in evaluation Patient Amnestic to Procedure: Yes Nausea / Vomiting: adequately controlled Pain: adequately controlled Airway Patency, RR, SpO2: stable & adequate BP & HR: stable & adequate Hydration State: stable & adequate Anesthetic Complications: no major complications apparent and Pt Satisfied with anesthetic care
--- NOTE | 2018-11-25 10:43 | Cardioversion ---
Date of Service November 25, 2018 Electrical Cardioversion Rpt Electrical Cardioversion Report Author: Dillon Almeida DO Date of Surgery November 25, 2018 Pre & Post Diagnosis Preprocedure diagnosis: recurrent symptomatic (atypical) atrial flutter Post procedure diagnosis: successful conversion to SR Operation Date: 11/25/18 10:15 Procedure Direct Current Cardioversion Procedure: After informed consent was obtained and a time out was performed, the patient was sedated with the assistance of the anesthesia service receiving 40 mg of IV propofol The patient then underwent electrical cardioversion receiving a single dose of 200 J of biphasic energy with successful conversion to sinus bradycardia. Post procedure EKG reveals sinus bradycardia at 55 bpm with first degree AVB PA interval 212 ms, age undetermined septal infarct pattern, stable QTC of 491 ms. Plan: transfer back to the telemetry unit for ongoing care. [employer] Teacher Dillon Almeida DO Ink Maker none Estimated Blood Loss 0 Findings Consistent with Post-Op Diagnosis Anesthesia Type MAC Complications none Disposition Disposition: PCU
--- NOTE | 2018-11-25 15:08 | Hospitalist Progress Note ---
Date of Service November 25, 2018 Assessment & Plan (1) Paroxysmal atrial flutter: Unsuccessful ASHLEY cardioversion yesterday. Planned repeat cardioversion today. Continue metoprolol and Tikosyn. Chest pain is still present thought secondary to the atrial flutter rhythm. We will schedule Tylenol at this time for this discomfort and abdominal discomfort. (2) Abdominal tenderness: CT abdomen pelvis revealed nonspecific diarrheal illness. No BM occurred yesterday and right upper quadrant tenderness has become generalized abdominal tenderness today. Of note, reports patient has some issues with dairy and has been indulging in ice cream recently. ?lactose intolerance. Will eliminate dairy from diet to see if this improves things. Unclear etiology at this time, doubt infection. However, still awaiting stool studies which have yet to be collected. (3) Diarrhea: Tolerating p.o. Hold Lasix at this time pending resolution. Suspect possible lactose intolerance however stool studies are still pending.Of note C. difficile was checked as outpatient and was negative prior to arrival. (4) Prolonged Q-T interval on ECG: On Tikosyn. QTC is within normal range this morning (around 500) (5) CAD (coronary artery disease): appears stable. Cont medical management of CAD. (6) S/P AVR (aortic valve replacement): (7) S/P MVR (mitral valve replacement): coumadin continued with INR goal 2.5-3.5. She is at goal with INR 3.0 this morning. (8) DVT prophylaxis: coumadin full code dispo-continue telemetry monitoring, await cardioversion repeat later this morning. Marianela Dong DO [facility] Hospitalist Subjective Persistent atrial fibrillation overnight with rate in the 90-1 teen range. The patient is reporting persistent chest discomfort which is somewhat improved with Tylenol. She is also reporting persistent abdominal discomfort that is now generalized. We discussed CT scan findings yesterday including generalized acute diarrheal illness. She reports no bowel movement yesterday, therefore no stool sample was collected. Review of Systems Review of Systems: All systems reviewed & are unremarkable except as noted in HPI & below Physical Exam Physical Exam: CONSTITUTIONAL: WNWD, vitals as above, generally well- appearing EYES: normal conjunctivae, no scleral icterus ENT: MMM RESPIRATORY: clear to auscultation bilaterally, no crackles, rales or wheezes, normal respiratory effort CARDIOVASCULAR: reg rate and irregular rhythm, S1 and 2 heard without murmurs, gallops or rubs, no JVD, no peripheral edema CHEST: inspection of chest was normal GASTROINTESTINAL: soft, generalized TTP without guarding, nondistended. MUSCULOSKELETAL: strength 5/5 throughout, head is normocephalic and atraumatic SKIN: warm and dry NEUROLOGIC: CN 2-12 grossly intact, normal cognition, normal speech, no gross focal deficits. PSYCHIATRIC: alert cooperative and oriented to person, place and time Results & Data Vital Signs (Past 12 Hours) Vital Signs Temp Pulse Pulse Resp BP BP Pulse Ox 11/25/18 12:00 52 L 16 112/67 97 11/25/18 11:37 55 L 16 112/67 96 11/25/18 11:07 50 L 16 110/67 95 11/25/18 10:50 53 L 15 124/55 L 94 11/25/18 10:45 54 L 15 95/69 L 94 11/25/18 10:40 55 L 15 126/55 L 94 11/25/18 10:38 56 L 15 115/78 97 11/25/18 10:15 36.7 C 82 17 151/86 H 97 11/25/18 07:14 36.5 C 103 H 18 131/78 96 11/25/18 03:46 36.4 C L 78 16 91/57 L 98 Medications Administered Current Inpatient Medications Acetaminophen (Tylenol) 1,000 mg PO Q8 [facility] Stop: 12/25/18 09:29 Last Admin: 11/25/18 14:42 Dose: 1,000 mg Documented by: Aspirin (Ecotrin Ectab) 81 mg PO QAM [facility] Stop: 12/24/18 08:59 Last Admin: 11/25/18 08:36 Dose: 81 mg Documented by: Atorvastatin Calcium (Lipitor) 20 mg PO MoWeFr@0900 [facility] Stop: 12/24/18 08:59 Last Admin: 11/24/18 10:54 Dose: 20 mg Documented by: Dicyclomine HCl (Bentyl) 20 mg PO QID PRN PRN Reason: Abdominal Discomfort Stop: 12/23/18 19:52 Last Admin: 11/24/18 10:55 Dose: 20 mg Documented by: Dofetilide (Tikosyn) 125 mcg PO Q12H [facility] Stop: 12/23/18 19:59 Last Admin: 11/25/18 08:36 Dose: 125 mcg Documented by: Furosemide (Lasix) 20 mg PO Q2D@0900 [facility] Stop: 12/24/18 08:59 Metoprolol Tartrate (Lopressor) 12.5 mg PO HS [facility] Stop: 12/23/18 20:59 Last Admin: 11/24/18 20:15 Dose: 12.5 mg Documented by: Metoprolol Tartrate (Lopressor) 25 mg PO QAM [facility] Stop: 12/24/18 08:59 Last Admin: 11/25/18 08:37 Dose: 25 mg Documented by: Nitroglycerin (Nitrostat) 0.4 mg SL PRN PRN Reason: Chest Pain Stop: 12/23/18 19:10 Pantoprazole Sodium (Protonix) 40 mg PO QA PRN PRN Reason: Acid Reflux Stop: 12/23/18 19:52 Polyethylene Glycol (Miralax Powder Packet) 17 gm PO DAILY PRN PRN Reason: Constipation Stop: 12/23/18 19:10 Sertraline HCl (Zoloft) 50 mg PO QAM [facility] Stop: 12/24/18 08:59 Last Admin: 11/25/18 08:35 Dose: 50 mg Documented by: Tramadol HCl (Ultram) 25 mg PO Q6H PRN PRN Reason: pain Stop: 12/24/18 11:29 Warfarin Sodium (Coumadin) 2 mg PO SuTuThSa@1600 [facility] Stop: 12/25/18 15:59 Last Admin: 11/23/18 21:38 Dose: 2 mg Documented by: Warfarin Sodium (Coumadin) 3 mg PO MoWeFr@1600 [facility] Stop: 12/24/18 15:59 Last Admin: 11/24/18 17:21 Dose: 3 mg Documented by:
[2018-11-25] MEDS: WARFARIN SOD 2 MG TAB PO SCH (15:34)
[2018-11-26] MEDS: ACETAMINOPHEN 500 MG TAB PO SCH ×3 (05:27→14:33)
[2018-11-26 05:47] LABS: Hemoglobin 12.3 g/dL (12.0-16.0); Mean Corpuscular Hemoglobin 29.6 pg (25-34); Mean Corpuscular Hgb Conc 33.2 g/dL (32-36); Mean Corpuscular Volume 88.9 fL (80-100); Mean Platelet Volume 11.4 fL (7.4-10.4); Platelet Count 225 K/uL (130-400); RDW Coefficient of Variation 15.9 % (11.5-14.5); RDW Standard Deviation 51.4 fL (36.4-46.3); Red Blood Count 4.16 M/uL (4.2-5.4); White Blood Count 7.32 K/uL (4.8-10.8)
[2018-11-26 05:57] LABS: INR 3.5 (0.9-1.1); Prothrombin Time 32.4 Seconds (9.0-12.0)
[2018-11-26 06:19] LABS: BUN Creatinine Ratio 14.3 (10-20); Creatinine Clr Calc Pharmacy 59.2 ml/min; Est GFR (African American) 84.8; Est GFR (Non-African American) 73.1; Magnesium 2.3 mg/dl (1.8-2.4); Potassium 3.8 mmol/L (3.5-5.1)
--- NOTE | 2018-11-26 07:35 | Anesthesiology Progress Note ---
Date of Service November 26, 2018 Anesthesia Post Procedure Vital Signs Vital Signs: Temp Pulse Pulse Pulse Resp BP BP 11/26/18 03:46 36.5 C 71 16 113/65 11/26/18 02:18 58 L 11/26/18 00:02 36.5 C 65 16 106/63 11/25/18 18:44 36.7 C 62 19 146/63 H 11/25/18 16:00 63 11/25/18 15:27 37.0 C 54 L 18 113/72 11/25/18 12:00 52 L 16 112/67 11/25/18 11:37 55 L 16 112/67 11/25/18 11:07 50 L 16 110/67 11/25/18 10:50 53 L 15 124/55 L 11/25/18 10:45 54 L 15 95/69 L 11/25/18 10:40 55 L 15 126/55 L 11/25/18 10:38 56 L 15 115/78 11/25/18 10:15 36.7 C 82 17 151/86 H Pulse Ox 11/26/18 03:46 95 11/26/18 02:18 11/26/18 00:02 98 11/25/18 18:44 92 11/25/18 16:00 11/25/18 15:27 98 11/25/18 12:00 97 11/25/18 11:37 96 11/25/18 11:07 95 11/25/18 10:50 94 11/25/18 10:45 94 11/25/18 10:40 94 11/25/18 10:38 97 11/25/18 10:15 97 Pain Intensity Chest: Pain Intensity: 4 Right Abdomen: Pain Intensity: 3 Notes Mental Status: alert / awake / arousable and participated in evaluation Patient Amnestic to Procedure: Yes Nausea / Vomiting: adequately controlled Pain: adequately controlled Airway Patency, RR, SpO2: stable & adequate BP & HR: stable & adequate Hydration State: stable & adequate Anesthetic Complications: no major complications apparent and Pt Satisfied with anesthetic care
[2018-11-26] MEDS: ATORVASTATIN 20 MG TAB PO SCH (08:16)
[2018-11-26] MEDS: ASPIRIN 81 MG ECTAB PO SCH (08:17)
[2018-11-26] MEDS: DOFETILIDE 125 MCG CAPSULE PO SCH (08:17)
[2018-11-26] MEDS: SERTRALINE HCL 50 MG TABLET PO SCH (08:18)
[2018-11-26] MEDS: METOPROLOL TARTRATE 25 MG TAB PO SCH (08:19)
--- NOTE | 2018-11-26 10:57 | Cardiology Progress Note ---
Date of Service November 26, 2018 Assessment & Plan (1) Atrial flutter: EKG performed this morning 11/26/2018 at 10 AM and reviewed independently revealed sinus rhythm at 69 bpm, OR interval 200 ms, QRS duration 96 ms, corrected QT interval 477 ms. Nonspecific repolarization changes noted, unchanged compared to previous baseline. As previously noted, patient has a history of rheumatic heart disease with past mechanical mitral valve replacement, past aortic valve replacement, as well as chronic coronary heart disease with 70% LAD stenosis noted on cardiac catheterization several years ago prior to her most recent valve replacement surgery and patent graft to that territory. Her troponin was negative on serial measurements this admission, and I feel her sensation of chest pain is due to atrial flutter with mildly elevated ventricular rates especially at exertion. She certainly seems to feel better when AV synchrony is established. She has a complex arrhythmia issue, and it is felt that her atrial flutter is likely left-sided, and per previous electrophysiology input as an outpatient, this is not typically amenable to catheter ablation due to the suspected proximity to the mechanical mitral valve. She has been maintained on chronic dofetilide for several years, with occasional cardioversions. In the past she had been on amiodarone and did not tolerate it well due to gastrointestinal side effects, and bradycardia. At this time, her INR today is 3.5. I have requested a transthoracic echocardiogram as her most recent complete study was performed in 2018. If her rhythm remains stable and echocardiogram findings are stable, I plan tentative discharge to home today on her prior to hospital doses of metoprolol and dofetilide 125 mcg twice daily. As previously noted, her doses of dofetilide have been limited by QT interval prolongation, this is present at stable, but I do not think we can titrate this up from 125 mcg. I have requested an outpatient general cardiology follow-up visit, as well as a repeat electrophysiology appointment, she has follow-up with Dr. Manzano of [facility] in the past. Subjective Chief complaint: Follow-up palpitations, generalized weakness, chest pressure Subjective: Patient underwent successful direct-current cardioversion to sinus bradycardia yesterday. Overnight last night at 3:40 PM she reverted back to atrial flutter during sleep. This morning 8:15 AM she spontaneously converted back to sinus rhythm with a 3.4-second conversion pause. At present she feels well. She did not feel poorly overnight last night. Review of Systems Review of Systems: All systems reviewed & are unremarkable except as noted in HPI & below Physical Exam Physical Exam: Temp Pulse Resp BP Pulse Ox 36.5 C 86 16 160/82 H 95 11/26/18 07:33 11/26/18 07:33 11/26/18 07:33 11/26/18 07:33 11/26/18 07:33 Constitutional: WD/WN, vitals as above Respiratory: normal respiratory effort, lungs clear to auscultation Cardiovascular: Rate/Rhythm: regular rhythm Heart Sounds: no murmur Vessels: no JVD Charles prosthetic heart sounds noted Chest (Breasts): Additional Comments: Skin changes about the left breast in the posterior portion of her back over the left scapula consistent with having had cardioversion. Neurologic: PERRL, EOMI, accommodation nl, no face palsy, no dysarthria Results & Data Vital Signs (Past 12 Hours) Vital Signs Temp Pulse Pulse Resp BP BP Pulse Ox 11/26/18 07:33 36.5 C 86 16 160/82 H 95 11/26/18 03:46 36.5 C 71 16 113/65 95 11/26/18 02:18 58 L 11/26/18 00:02 36.5 C 65 16 106/63 98
[2018-11-26] MEDS ORDERED: PERFLUTREN LIPID MICROSPHERE (DEFINITY) IV ONE (11:15)
--- NOTE | 2018-11-26 15:52 | Discharge Summary ---
Date of Service November 26, 2018 Admission HPI Per Admitting Provider 73 yo F presented with two weeks of palpitations and chest pain that indicated to her she had gone back into atrial flutter. 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 However, yesterday morning she woke up with a more severe chest pain that radiated across her chest and into her right arm and this concerned her enough to make an appointment with her Weight Trainer today. She reports using nitroglycerin for this pain which only made her nauseous with an episode of vomiting. She still has some pain present in her chest now, and this is not associated with other concerning symptoms of shortness of breath, sweating, etc. She also reports having two episodes of watery, non-bloody diarrhea daily for the past four weeks. She denies any recent history of antibiotic use. She has a h/o CABG and a mechanical mitral and aortic valve, and is on coumadin fro this with a therapeutic INR. Admission Exam Per Admitting Provider CONSTITUTIONAL: WNWD, vitals as above, generally well-appearing EYES: normal conjunctivae, no scleral icterus ENT: MMM RESPIRATORY: clear to auscultation bilaterally, no crackles, rales or wheezes, normal respiratory effort CARDIOVASCULAR: tachy rate and irregular rhythm, S1 and 2 heard without murmurs, gallops or rubs, no JVD, no peripheral edema CHEST: inspection of chest was normal GASTROINTESTINAL: soft, nontender, nondistended MUSCULOSKELETAL: strength 5/5 throughout, head is normocephalic and atraumatic SKIN: warm and dry NEUROLOGIC: CN 2-12 grossly intact, normal cognition, normal speech, no gross focal deficits. PSYCHIATRIC: alert cooperative and oriented to person, place and time. Principal Diagnosis Atrial flutter with rapid ventricular response s/p cardioversion Atypical chest pain-resolved. Discharge Data Allergies Allergy/AdvReac Type Severity Reaction Status Date / Time Sulfa (Sulfonamide Allergy Intermediate Rash, hives Verified 11/23/18 19:00 Antibiotics) lidocaine Allergy Unknown HIVES Verified 11/23/18 19:00 levothyroxine AdvReac Intermediate TACHYCARDIA Unverified 11/23/18 19:00 Latex2 -Systemic Allergic Allergy Unknown WHEEZING Uncoded 11/23/18 19:00 Response Consultations 11/23/18 17:43 ED Decision to Admit Stat 11/23/18 19:11 Consult Cardiology Routine 11/24/18 08:28 Consult Anesthesiology Routine 11/25/18 09:33 Consult Anesthesiology Routine Procedures Performed Operation Date: 11/24/18 09:00 Actual Procedures p Transesophageal Echo w/Anesthesia - Dillon Almeida DO s Cardioversion - Dillon Almeida DO Operation Date: 11/25/18 10:15 Actual Procedures p Cardioversion - Dillon Almeida DO Ordered Studies 11/24/18 11:16 CT abd pelvis wo con Urgent Hospital Course (1) Paroxysmal atrial flutter: (2) Diarrhea: (3) Prolonged Q-T interval on ECG: (4) S/P AVR (aortic valve replacement): (5) S/P MVR (mitral valve replacement): 73-year-old female admitted for the evaluation of tachycardia. She is well-known to [facility] having a history of rheumatic heart disease with remote mechanical mitral valve replacement and mechanical aortic replacement performed at [facility] in 2002 along with CABG x3 at that time with KIRK to LAD, right internal mammary artery anastomosed as a free graft to the right coronary artery, and a single saphenous vein graft to the diagonal. She was admitted to the Hospitalist service after having noted 1 month of palpitations and 1 week of intermittent chest pain. Serial cardiac enzymes were ordered and negative overnight. Cardiology was consulted and recommended to continue metoprolol and Tikosyn with plans for a transesophageal echocardiogram guided cardioversion the following morning. This was performed but unsuccessful as she converted back to atrial flutter prior to arriving back on the floor post procedure. While in this rhythm she had constant chest pain that was improved somewhat with Tylenol and thought to be secondary to the arrhythmia as opposed to any kind of atherosclerotic disease. As treatment options were limited a repeat DC cardioversion was performed the following day. To review, she has done well on dofetilide 125 mcg twice daily for years, however the dose is limited due to baseline QT interval in the range of 500 ms. Therefore, she has not been a candidate for higher dose therapy. Treatment with the metoprolol has also been limited by her baseline sinus bradycardia. EKG review with prior electrophysiology consultation has recommended against a catheter ablation as this would be technically complex and high risk due to its presumed proximity to the mechanical mitral valve. Electrophysiology recommendations in the past have been consistent with medication therapy only. On 11/25 she underwent a repeat direct-current cardioversion procedure which was successful to convert her to sinus bradycardia at 55 bpm with a first-degree AV block. She continued to do well and remained in sinus rhythm for the next 24 hours. On 11/26 a transthoracic echocardiogram was performed revealing evidence of sinus rhythm, a mechanical mitral valve prosthesis that was functioning within normal limits, an aortic valve prosthesis that was functioning within normal limits and left ventricular wall motion that was normal with an ejection fracture 60 to 65%. At time of discharge a [id number] examination was performed revealing an asymptomatic patient that was hemodynamically stable and afebrile. She was mentating and ambulating at baseline and tolerating food. Physical exam revealed clear lungs to auscultation bilaterally with no evidence of crackles, well rales or wheezes and a normal respiratory effort. Cardiovascular exam revealed a regular rate and rhythm with S1 and S2 heard and no evidence of murmurs, gallops or rubs. No JVD or peripheral edema were noted. Abdomen was soft and nontender without distention. She was alert and oriented to person, place and time. During the hospitalization, diarrhea had been noted approximately 0-2 times daily and this is been an issue for her for approximately 1 month. Stool studies were checked for infection and this was negative for C. difficile toxin, and negative for overt infectious etiology. As this has been ongoing for 1 month her diet was examined and she realized her intake of dairy was elevated. We discussed a trial of lactose intolerance going home and she will need to follow-up with the primary care doctor to ensure this was successful. While admitted, a CT of the abdomen pelvis was ordered revealing multiple nonspecific air-fluid levels in the large bowel consistent with a diarrheal illness. No bowel obstruction or bowel wall thickening was seen. She was sent home in stable condition with close primary care follow-up recommended. Total Time Total Time Spent Total Time Spent (In Minutes): 60 Total Time Includes: Examination of the Patient, Discharge Planning, Medication Reconciliation, Communication With Other Providers and Other (arrange outpatient follow-up) Discharge Plan Discharge Items Patient Disposition: Home - Self-Care Reason For Visit: CHEST PAIN,ATRIAL FLUTTER WITH RAPID VENTRICULAR R Discharge Diagnosis: Atrial flutter with rapid ventricular response s/p cardioversion Atypical chest pain-resolved. Condition on Discharge: Good Health Concerns: Persistent diarrhea and abdominal discomfort -trial of LACTOSE-FREE/DAIRY FREE FOODS at home Activity: Resume your previous activity Non-emergency contact: Primary Care Provider and Weight Trainer Call non-emergency contact if: you have any medication questions, your symptoms worsen, your pain is not controlled, your pain is worsening, your pain is unusual for you, your pain is concerning for you and you have a fever Follow-up/Referrals: Dillon Almeida DO [Weight Trainer] - Melba Bullock DO [Primary Care Provider] - Diet: Heart Healthy and Lactose Intolerant Addtl Attending Provider Instructions: Please continue all medications as instructed on discharge list below. It is recommended that you follow-up with your primary care physician within one week of discharge from the hospital to ensure you are still feeling well, and that your diarrhea and abdominal discomfort has improved with the lactose-free diet. 12/03/2018 10:00 AM Ron Washington MD Internal Medicine [facility] Please follow-up with Cardiology as instructed. It was a pleasure taking care of you! Please call if you have any questions or problems. You can reach a [facility] hospitalist on duty at [facility] 24 hours a day by calling [phone]. Take care of yourself. Marianela Dong DO [facility] Pending Studies at Discharge: Yes Stand-Alone Forms: My [facility] Medications and DC Order Prescriptions: Continued atorvastatin 20 mg Tablet 20 mg PO MOWEFR RF: 0 dofetilide 125 mcg Capsule 125 mcg PO Q12H RF: 0 aspirin [Aspir-81] 81 mg Tablet,Delayed Release (Dr/Ec) 81 mg PO QAM RF: 0 dicyclomine 20 mg Tablet 20 mg PO QID PRN (Reason: Abdominal Discomfort) RF: 0 nitroglycerin [Nitrostat] 0.4 mg Tablet, Sublingual 0.4 mg sublingual UD RF: 0 furosemide 20 mg Tablet 20 mg PO Q OTHER DAY RF: 0 warfarin 1 mg Tablet 3 mg PO MOWEFR RF: 0 sertraline 50 mg Tablet 50 mg PO QAM RF: 0 metoprolol tartrate 25 mg Tablet 25 mg PO QAM RF: 0 omeprazole 20 mg Tablet,Delayed Release (Dr/Ec) 20 mg PO QAM PRN (Reason: Acid Reflux) RF: 0 metoprolol tartrate 25 mg Tablet 12.5 mg PO HS RF: 0 warfarin 1 mg Tablet 2 mg PO SUTUTHSA RF: 0 Discharge Orders: Discharge Order (Routine); Ordered 11/26/18 Ordered By: Marianela Dong Admission Data Admit Date/Time: 11/23/18 19:13 Attending Provider: Marianela Dong Admit Provider: Marianela Dong Primary Care Provider: Melba Bullock Other Providers: Marianela Dong ; Dillon Almeida ; Marc Salomon ; Robi Guzman Other Interventions: Discharge Summary Assessment (RN) Last Done: 11/26/18 15:57 DC Date/Time DO NOT enter until pt leaves facility: 11/26/18 16:40
[2018-11-26] MEDS: WARFARIN SOD 3 MG TAB PO SCH (16:35)
== END 2018-11-26 16:40 | disposition home or self-care (01) | DRG 310 ==
LOC: ED 16:39 → 2S 19:13
DX: E78.5 Hyperlipidemia, unspecified; E03.9 Hypothyroidism, unspecified; Z95.2 Presence of prosthetic heart valve; I48.92 Unspecified atrial flutter; Z79.01 Long term (current) use of anticoagulants; I25.10 Atherosclerotic heart disease of native coronary artery without angina pectoris; K58.0 Irritable bowel syndrome with diarrhea; Z95.1 Presence of aortocoronary bypass graft; Z88.2 Allergy status to sulfonamides; I48.0 Paroxysmal atrial fibrillation; N18.2 Chronic kidney disease, stage 2 (mild); Z91.040 Latex allergy status

== ENCOUNTER 2020-04-05 14:20 | Inpatient (IN) ==
[2020-04-05] MEDS ORDERED: SODIUM CHLORIDE 0.9% 1000ML 1,000 ML IV ONE (14:37)
--- NOTE | 2020-04-05 14:40 | Emergency Department Note ---
Impression & Plan Dizziness, S/P AVR (aortic valve replacement), S/P MVR (mitral valve replacement), S/P CABG (coronary artery bypass graft), Abnormal ECG ED Provider Note NAME: TATUM SOSA AGE: 74 SEX: F : 1945 ARRIVES VIA: Ambulance INFORMANT: Patient ED PROVIDER(S): Nelson Winston DO CHIEF COMPLAINT: dizzy HPI: Patient is a 74-year-old female with a past medical history of aortic and mitral valve replacements who presents the ER for dizziness which started yester day. It is only present with movement or changing positions. She has a mild headache 7 out of 10 behind her right eye which started on the drive over here in the ambulance. She notes it got really bad just prior to calling the ambulance and she noticed some shortness of breath with it. Denies any chest pain, belly pain, vomiting or diarrhea. No dysuria, urgency or frequency. No weakness or numbness in the arms or legs. No other exacerbating or remitting factors. She admits that she is chronically in A. fib at this time. She has been taking her Coumadin and has not missed any doses. She follows with [facility] cardiology. ROS: See above HPI for pertinent positives & negatives. A total of 10 systems reviewed and were otherwise negative. PAST MEDICAL HISTORY:See Below PAST SURGICAL HISTORY:See Below FAMILY HISTORY:See Below SOCIAL HISTORY:See Below HOME MEDICATIONS:See Below ALLERGIES:See Below VITALS:See Below PHYSICAL EXAMINATION: GENERAL: Sitting up in bed, alert, well appearing, well nourished, no distress, non-toxic EYE EXAM: normal conjunctiva. PERRL and EOM's intact. OROPHARYNX: no exudate, no erythema, lips, buccal mucosa, and tongue normal and mucous membranes are moist NECK: supple, no nuchal rigidity, no adenopathy, non-tender LUNGS: Clear to auscultation. Normal chest wall mechanics HEART: Audible click, S1 normal and S2 normal ABDOMEN: abdomen soft, non-tender, normo-active bowel sounds, no masses, no rebound or guarding. UPPER EXTREMITIES: upper extremities are grossly normal. LOWER EXTREMITIES: No pitting edema. NEURO EXAM: Normal sensorium, cranial nerves II-XII intact, normal speech, no weakness of arms, no weakness of legs. No drift. Finger to nose intact. Gross sensation intact. Rapid alternating movements of upper extremities intact. MEDICAL DECISION MAKING: Patient is a 74-year-old female who presents the ER for dizziness which has been present for about 24 hours. Worsen with movement. She does have a history of aortic and mitral valve replacement on Coumadin. IV was established blood work was obtained. Labs showed no significant leukocytosis or anemia. INR was subtherapeutic at 2.1. BMP with a chloride of 114. LFTs bilirubin and troponin was unremarkable. Covid was negative. CT head showed no acute pathology. Chest x-ray with questionable atelectasis. EKG was slightly changed from previous per my read in the inferior leads. This in combination with her extensive history discussed with the hospitalist for further evaluation. Triage Nursing notes reviewed. Limited review of prior medical records performed Vital Signs: reviewed and remarkable for no significant abnormalities Differential diagnosis: Differential diagnosis includes etiologies such as benign positional vertigo, dehydration, hypovolemia, anemia, tumor, infection, hypoglycemia, electrolyte abnormalities, cardiac sources, intracerebral event, toxicologic, neurological, as well as others were entertained. ER treatment provided: See below Diagnostics interpreted by me: ECG: Sinus rhythm rate of [address] depressions in the inferior leads which are new from previous ST depressions in the lateral leads no significant change from previous Septal Q waves Cardiac Monitoring: An order was placed for continuous cardiac monitoring. The monitor shows a rate of 92 with sinus rhythm. Laboratory studies: As stated above and show below. Imaging studies: CT of the head as discussed above Chest x-ray as discussed above Consultation(s): Discussed with the hospitalist for further evaluation Procedures: none Critical Care: None Past Med/Surg History Medical History (Updated 04/05/20 @ 21:28 by Nelson Winston DO) Anticoagulation goal of INR 2.5 to 3.5 Anxiety Atrial fibrillation Atrial flutter CAD (coronary artery disease) Rheumatic heart disease, on March 04, 2002 patient underwent aortic valve replacement and mitral valve replacement along with CABG x3 with a KIRK to the LAD, right internal mammary artery anastomosis as a free graft to the RCA and a single saphenous vein graft to the diagonal coronary artery and radiofrequency ablation of atrial fibrillation pathways at [facility]. 01/2011 admitted to [facility] secondary to symptomatically A. fib flutter which patient underwent DCCV. Sotalol was started but stopped due to intolerance secondary to nausea and bradycardia. July 2011 Tikosyn loading and successful repeat DCCV. 01/08/12 underwent cardiac catheterization at [facility] and remained on warfarin. Noted to have single-vessel disease 70% mid LAD, 2 of the 3 bypasses were patent. There was obstruction of the SVG to diagonal however, the [place] diagonal had no significant obstruction. 12/24/12 hospitalized at [facility] and underwent redo of mechanical MVR By Dr. Manley. Postop day flutter noted. Tikosyn was discontinued and sent home on amiodarone and metoprolol. 05/3015 admitted to [facility] secondary to symptomatically flutter and tikosyn re-initiated. 11/2015 admitted to [facility] secondary to recurrent symptomatic paroxysmal atrial flutter with RVR, status post DCCV. CKD (chronic kidney disease), stage II pt denies. Depression History of cardioversion multiple (~8 total) most recent October 2018 at [facility]. Follows with Dr. Almeida. History of transesophageal echocardiography (ASHLEY) HLD (hyperlipidemia) HTN (hypertension) Hypothyroidism no medication IBS (irritable bowel syndrome) Liver cirrhosis secondary to BROWNE On anticoagulant therapy Osteoarthritis Paroxysmal atrial flutter Rheumatic heart disease Surgical History (Updated 04/05/20 @ 21:28 by Nelson Winston DO) H/O esophagogastroduodenoscopy History of bilateral breast reduction surgery History of bilateral tubal ligation History of cardiac cath 2002 & ~2013 [facility] History of cataract surgery bilateral History of cholecystectomy History of colonoscopy History of partial thyroidectomy History of tonsillectomy Hx of appendectomy Hx of appendectomy Hx of CABG x3 vessels (2002) at [facility] S/P AVR (aortic valve replacement) "Mechanical 2002 replace aortic valve 2012 - [facility] - Dr Manley" On 05/25/15 15:41 Mel Quevedo wrote "Mechanical 2002" S/P cholecystectomy S/P MVR (mitral valve replacement) "Mechanical 2002" plus a revision S/P NELLY (total abdominal hysterectomy) LSO Family History Mother Colorectal cancer Father FHx: bladder cancer Social History Smoking Status: Never smoker Second Hand Exposure: No; Do You Dip or Chew Tobacco: No; Tobacco Cessation Education Requested by Patient: No Hx Alcohol Use: No Hx Substance Use: No Preferred Language: Croatian Communication Ability: Effective Laserist Required: No Beliefs That Will Affect Care: None Current Living Situation: Alone Other Information That Helps Us Care for You: No Feels Safe at Home: Yes Safety Concerns: Feels Safe At This Time Assistive Devices: Denture - Upper, Glasses and Hearing Aid - Right Allergies Allergies Allergy/AdvReac Type Severity Reaction Status Date / Time lidocaine Allergy Intermediate Rash/hives Verified 04/05/20 15:43 [From Aspercreme (lidocaine)] with cream Sulfa (Sulfonamide Allergy Intermediate Rash, hives Verified 04/05/20 15:43 Antibiotics) latex Allergy Unknown Wheezing Verified 04/05/20 15:43 levothyroxine AdvReac Intermediate Tachycardia Verified 04/05/20 15:43 Home Meds Home Medications Medication Instructions Recorded Confirmed dicyclomine 20 mg PO QID PRN 05/27/18 04/05/20 furosemide See Rx Instructions .ROUTE 05/27/18 04/05/20 .COMPLEX PRN metoprolol tartrate 37.5 mg PO BID 05/27/18 04/05/20 nitroglycerin [Nitrostat] 0.4 mg SUBLINGUAL DIRECTED PRN 05/27/18 04/05/20 warfarin 1 mg PO 2XWK 05/27/18 04/05/20 warfarin 2 mg PO 5XWK 11/23/18 04/05/20 aspirin [Aspirin Low Dose] 81 mg PO QAM 04/05/20 04/05/20 sertraline 50 mg PO QAM 04/05/20 04/05/20 Results & Data (ED) Vital Signs Vital Signs - 24 hr 04/05/20 14:25 04/05/20 14:27 04/05/20 14:30 Temperature Temperature Source Pulse Rate 96 H 95 H 95 H Pulse Rate from SpO2 Sensor 96 H 95 H 95 H Respiratory Rate 22 20 Blood Pressure 162/73 H Blood Pressure Mean 102 Pulse Oximetry 98 98 98 Oxygen Delivery Method Sepsis Recent Fever Within 48 Hours Sepsis New/Unexplained Change in Mental Status Sepsis Action Taken by Nursing 04/05/20 14:35 04/05/20 14:40 04/05/20 14:46 Temperature 36.8 C Temperature Source Oral Pulse Rate 95 H 89 Pulse Rate from SpO2 Sensor 91 H Respiratory Rate 18 Blood Pressure 162/73 H Blood Pressure Mean 102 Pulse Oximetry 99 97 100 Oxygen Delivery Method Room Air Room Air Sepsis Recent Fever Within 48 Hours No Sepsis New/Unexplained Change in Mental Status N/A Sepsis Action Taken by Nursing No Action Required 04/05/20 14:50 04/05/20 15:10 04/05/20 15:20 Temperature Temperature Source Pulse Rate 95 H 93 H 92 H Pulse Rate from SpO2 Sensor 96 H 94 H 92 H Respiratory Rate 22 24 Blood Pressure Blood Pressure Mean Pulse Oximetry 98 94 98 Oxygen Delivery Method Sepsis Recent Fever Within 48 Hours Sepsis New/Unexplained Change in Mental Status Sepsis Action Taken by Nursing 04/05/20 15:30 04/05/20 15:40 04/05/20 15:50 Temperature Temperature Source Pulse Rate 86 96 H 87 Pulse Rate from SpO2 Sensor 93 H 86 89 Respiratory Rate 19 Blood Pressure Blood Pressure Mean Pulse Oximetry 98 98 97 Oxygen Delivery Method Sepsis Recent Fever Within 48 Hours Sepsis New/Unexplained Change in Mental Status Sepsis Action Taken by Nursing 04/05/20 16:00 04/05/20 16:09 04/05/20 16:10 Temperature Temperature Source Pulse Rate 87 87 87 Pulse Rate from SpO2 Sensor 87 87 87 Respiratory Rate 23 22 18 Blood Pressure 131/83 Blood Pressure Mean 99 Pulse Oximetry 97 97 98 Oxygen Delivery Method Sepsis Recent Fever Within 48 Hours Sepsis New/Unexplained Change in Mental Status Sepsis Action Taken by Nursing 04/05/20 16:20 04/05/20 16:30 04/05/20 16:40 Temperature Temperature Source Pulse Rate 87 88 88 Pulse Rate from SpO2 Sensor 87 88 88 Respiratory Rate 12 22 Blood Pressure Blood Pressure Mean Pulse Oximetry 96 97 97 Oxygen Delivery Method Sepsis Recent Fever Within 48 Hours Sepsis New/Unexplained Change in Mental Status Sepsis Action Taken by Nursing 04/05/20 16:50 04/05/20 17:00 04/05/20 17:01 Temperature Temperature Source Pulse Rate 89 87 88 Pulse Rate from SpO2 Sensor 88 89 Respiratory Rate 18 16 Blood Pressure 126/72 Blood Pressure Mean 90 Pulse Oximetry 96 97 Oxygen Delivery Method Sepsis Recent Fever Within 48 Hours Sepsis New/Unexplained Change in Mental Status Sepsis Action Taken by Nursing 04/05/20 17:10 04/05/20 17:20 04/05/20 17:30 Temperature Temperature Source Pulse Rate 88 89 87 Pulse Rate from SpO2 Sensor 88 89 88 Respiratory Rate 19 22 20 Blood Pressure 156/84 H Blood Pressure Mean 108 Pulse Oximetry 94 95 94 Oxygen Delivery Method Sepsis Recent Fever Within 48 Hours Sepsis New/Unexplained Change in Mental Status Sepsis Action Taken by Nursing 04/05/20 17:31 04/05/20 17:40 04/05/20 17:50 Temperature Temperature Source Pulse Rate 88 88 90 Pulse Rate from SpO2 Sensor 90 87 90 Respiratory Rate 19 Blood Pressure Blood Pressure Mean Pulse Oximetry 94 94 95 Oxygen Delivery Method Sepsis Recent Fever Within 48 Hours Sepsis New/Unexplained Change in Mental Status Sepsis Action Taken by Nursing 04/05/20 18:00 Temperature Temperature Source Pulse Rate 89 Pulse Rate from SpO2 Sensor 89 Respiratory Rate 24 Blood Pressure 146/70 H Blood Pressure Mean 95 Pulse Oximetry 95 Oxygen Delivery Method Sepsis Recent Fever Within 48 Hours Sepsis New/Unexplained Change in Mental Status Sepsis Action Taken by Nursing Laboratory Data Result diagrams: 04/05/20 14:35 04/05/20 15:40 Lab Results 04/05/20 04/05/20 04/05/20 Range/Units 14:35 14:35 15:40 WBC 10.12 (4.8-10.8) K/uL RBC 4.69 (4.2-5.4) M/uL Hgb 13.6 (12.0-16.0) g/dL Hct 40.6 (37-47) % MCV 86.6 (80-100) fL MCH 29.0 (25-34) pg MCHC 33.5 (32-36) g/dL RDW Std Deviation 50.5 H (36.4-46.3) fL RDW Coeff of Tammi 15.8 H (11.5-14.5) % Plt Count 256 (130-400) K/uL MPV 11.4 H (7.4-10.4) fL Immature Gran % (Auto) 0.2 % Neut % (Auto) 58.1 % Lymph % (Auto) 29.7 % [place] % (Auto) 10.8 % Eos % (Auto) 0.7 % Baso % (Auto) 0.5 % Neut # (Auto) 5.88 (1.4-6.5) K/uL Lymph # (Auto) 3.01 (1.2-3.4) K/uL [place] # (Auto) 1.09 H (0.11-0.59) K/uL Eos # (Auto) 0.07 (0-0.5) K/uL Baso # (Auto) 0.05 (0-0.2) K/uL Immature Gran # (Auto) 0.02 (0.00-0.02) K/uL PT 19.7 H (9.0-12.0) Seconds INR 2.1 H (0.9-1.1) Sodium Cancelled Potassium Cancelled Chloride Cancelled Carbon Dioxide Cancelled Anion Gap Cancelled BUN Cancelled Creatinine Cancelled Est Cr Clr Drug Dosing Cancelled Est GFR ( Amer) Cancelled Est GFR (Non-Af Amer) Cancelled BUN/Creatinine Ratio Cancelled Glucose Cancelled Calcium Cancelled Total Bilirubin Cancelled AST Cancelled ALT Cancelled Alkaline Phosphatase Cancelled Troponin I Cancelled Total Protein Cancelled Albumin Cancelled Globulin Cancelled Albumin/Globulin Ratio Cancelled Lipase Cancelled 04/05/20 Range/Units 15:40 WBC (4.8-10.8) K/uL RBC (4.2-5.4) M/uL Hgb (12.0-16.0) g/dL Hct (37-47) % MCV (80-100) fL MCH (25-34) pg MCHC (32-36) g/dL RDW Std Deviation (36.4-46.3) fL RDW Coeff of Tammi (11.5-14.5) % Plt Count (130-400) K/uL MPV (7.4-10.4) fL Immature Gran % (Auto) % Neut % (Auto) % Lymph % (Auto) % [place] % (Auto) % Eos % (Auto) % Baso % (Auto) % Neut # (Auto) (1.4-6.5) K/uL Lymph # (Auto) (1.2-3.4) K/uL [place] # (Auto) (0.11-0.59) K/uL Eos # (Auto) (0-0.5) K/uL Baso # (Auto) (0-0.2) K/uL Immature Gran # (Auto) (0.00-0.02) K/uL PT (9.0-12.0) Seconds INR (0.9-1.1) Sodium 143 Potassium 3.6 Chloride 114 H Carbon Dioxide 25 Anion Gap 4.0 BUN 12 Creatinine 0.82 Est Cr Clr Drug Dosing 56.9 Est GFR ( Amer) 81.7 Est GFR (Non-Af Amer) 70.5 BUN/Creatinine Ratio 14.2 Glucose 92 Calcium 8.7 Total Bilirubin 0.6 AST 47 H ALT 33 Alkaline Phosphatase 76 Troponin I < 0.015 Total Protein 7.7 Albumin 3.5 Globulin 4.2 H Albumin/Globulin Ratio 0.8 L Lipase Administered Medications Discontinued Medications Sodium Chloride (Nss 1000ml) 1,000 mls @ 999 mls/hr IV .[id number] ONE Stop: 04/05/20 15:37 Last Admin: 04/05/20 14:48 Dose: 999 mls/hr Documented by: [id number] Discharge Plan Visit Data Chief Complaint: Weakness ED Provider: Nelson Winston Discharge Problem: Dizziness, S/P AVR (aortic valve replacement), S/P MVR (mitral valve replacement), S/P CABG (coronary artery bypass graft), Abnormal ECG Patient Disposition: Admitted As Inpatient Discharge Instructions Interventions: ED Discharge Assessment Last Done: 04/05/20 20:16
[2020-04-05 14:45] LABS: Basophils # (auto) 0.05 K/uL (0-0.2); Basophils % (auto) 0.5 %; Eosinophils # (auto) 0.07 K/uL (0-0.5); Eosinophils % (auto) 0.7 %; Hematocrit (blood only) 40.6 % (37-47); Hemoglobin 13.6 g/dL (12.0-16.0); Immature Granulocytes # (auto) 0.02 K/uL (0.00-0.02); Immature Granulocytes % (auto) 0.2 %; Lymphocytes # (auto) 3.01 K/uL (1.2-3.4); Lymphocytes % (auto) 29.7 %; Mean Corpuscular Hgb Conc 33.5 g/dL (32-36); Mean Corpuscular Volume 86.6 fL (80-100); Mean Platelet Volume 11.4 fL (7.4-10.4); Monocytes # (auto) 1.09 K/uL (0.11-0.59); Monocytes % (auto) 10.8 %; Neutrophils # (auto) 5.88 K/uL (1.4-6.5); Neutrophils % (auto) 58.1 %; Platelet Count 256 K/uL (130-400); RDW Coefficient of Variation 15.8 % (11.5-14.5); RDW Standard Deviation 50.5 fL (36.4-46.3); Red Blood Count 4.69 M/uL (4.2-5.4); White Blood Count 10.12 K/uL (4.8-10.8)
--- NOTE | 2020-04-05 15:24 | CT Scan Report ---
CT head/brain wo con CLINICAL HISTORY: 74 years-old Female with dizzy. Acute dizziness TECHNIQUE: Multiple axial CT images of the head were obtained without contrast. A dose lowering tech nique was utilized adhering to the principles of ALARA. CT DOSE: 537.48 mGy.cm COMPARISON: CTA of the head 08/12/2017 FINDINGS: No acute intracranial hemorrhage, midline shift, intracranial mass, hydrocephalus, territorial ischem ia or abnormal extra-axial collection. Age-related involutional changes with chronic microvascular is chemic disease. Senescent calcifications of the lentiform nuclei. Tiny calcification of the left fron jonathan cortex is likely secondary to summation density from adjacent calvarium. The calvarium is intact. Prior bilateral lens repair. The paranasal sinuses, mastoid air cells, and m iddle ear cavities are clear. IMPRESSION: No acute intracranial abnormality. ACT 112: Negative or not required by law. The above report was generated using voice recognition software. It may contain grammatical, syntax o r spelling errors. Electronically signed by: Easton Griggs M.D. 04/05/2020 3:23 PM
--- NOTE | 2020-04-05 15:41 | XRay Report ---
XR chest 1V portable CLINICAL HISTORY: Chest Pain COMPARISON STUDY: Chest radiograph November 23, 2018. FINDINGS: Note is made of median sternotomy wires, mediastinal surgical clips and a prosthetic mitral valve. Moderate cardiomegaly is unchanged. Left basilar opacity is present. There is pulmonary vascu lar congestion without overt pulmonary edema. No pneumothorax or pleural effusion is identified. IMPRESSION: 1. Pulmonary vascular congestion without overt edema. 2. Mild left basilar opacity. Atelectasis is favored. ACT 112: Negative or not required by law. Electronically signed by: Isrrael Frank M.D. 04/05/2020 3:40 PM
[2020-04-05 16:24] LABS: INR 2.1 (0.9-1.1); Prothrombin Time 19.7 Seconds (9.0-12.0)
[2020-04-05 16:26] LABS: Alanine Aminotransferase 33 U/L (12-78); Albumin Level 3.5 gm/dl (3.4-5.0); Aspartate Aminotransferase 47 U/L (15-37); BUN Creatinine Ratio 14.2 (10-20); Blood Urea Nitrogen 12 mg/dl (7-18); Calcium 8.7 mg/dl (8.5-10.1); Carbon Dioxide 25 mmol/L (21-32); Chloride 114 mmol/L (98-107); Creatinine Clr Calc Pharmacy 56.9 ml/min; Est GFR (African American) 81.7; Est GFR (Non-African American) 70.5; Glucose 92 mg/dl (70-99); Potassium 3.6 mmol/L (3.5-5.1); Sodium 143 mmol/L (136-145)
[2020-04-05 16:30] LABS: Albumin Globulin Ratio 0.8 (0.9-2); Alkaline Phosphatase 76 U/L (45-117); Bilirubin,Total 0.6 mg/dl (0.2-1); Globulin 4.2 gm/dl (2.5-4.0); Total Protein 7.7 gm/dl (6.4-8.2); Troponin I < 0.015 ng/ml (0-0.045)
[2020-04-05] MEDS ORDERED: ALUMINUM/MAGNESIUM SUSP 30 ML UDC PO PRN (18:01)
[2020-04-05] MEDS ORDERED: POLYETHYLENE (MIRALAX) 17 GM PACK PO PRN (18:01)
[2020-04-05] MEDS ORDERED: MAGNESIUM HYDROXIDE SUSP 30 ML UDC PO PRN (18:01)
[2020-04-05] MEDS ORDERED: NITROGLYCERIN SL 0.4 MG/TAB TAB SL PRN ×2 (18:01→20:23)
--- NOTE | 2020-04-05 18:07 | History & Physical Report ---
Date of Service April 05, 2020 Assessment & Plan (1) Dizziness: brief episode of dizzy spell /complains of intermittent palpitation on and off for past few days no syncope not symptomatic at present , CT head no acute change , pt does not have any neurological finding need to r/o arrhythmia no angina symptoms monitor in tele cardiology eval requested (2) S/P AVR (aortic valve replacement): hx of rheumatic heart disease on March 04, 2002 patient underwent aortic valve replacement and mitral valve replacement along with CABG x3 with a KIRK to the LAD, right internal mammary artery anastomosis as a free graft to the RCA and a single saphenous vein graft to the diagonal coronary artery and radiofrequency ablation of atrial fibrillation pathways at [facility]. Goal INR 2.5-3.5 INR 2.1 today , IV heparin bridge therapy till INR at goal transthoracic ECHO given presentation with symptomatic palpitation /dizzy spell Chronic Afib : 01/2011 admitted to [facility] secondary to symptomatically A. fib flutter which patient underwent DCCV. 01/08/12 underwent cardiac catheterization at [facility] and remained on warfarin. Noted to have single-vessel disease 70% mid LAD, 2 of the 3 bypasses were patent. There was obstruction of the SVG to diagonal however, the false pass diagonal had no significant obstruction. 12/24/12 hospitalized at [facility] and underwent redo of mechanical MVR By Dr. Manley. Postop day flutter noted. Tikosyn was discontinued and sent home on amiodarone and metoprolol. 05/3015 admitted to [facility] secondary to symptomatically flutter and tikosyn re-initiated. 11/2015 admitted to [facility] secondary to recurrent symptomatic paroxysmal atrial flutter with RVR, status post DCCV. pt remains in rate controlled Aib , cont out pt meds cardiology consulted anticoagulation as discussed above (3) Rheumatic heart disease: (4) Anticoagulation goal of INR 2.5 to 3.5: (5) CAD (coronary artery disease): no chest pain or angina symptoms cont cardiac meds Resting ECHO to assess LV function and valvular function (6) Atrial fibrillation: History of multiple (~8 total) cardioversion most recent October 2018 at [facility]. Follows with Dr. Almeida. pt was recently seen by [facility] EP materials buyer Dr Manzano in [place] , given complex cardiac hx /mechanical valve , ablation was not recommended (7) CKD (chronic kidney disease), stage II: renal function stable FULL CODE DVT prophylaxis : Coumadin /IV heparin Bridge Disposition : Discharge home when medically stable History of Present Illness Chief Complaint: Dizzy spell Primary Care Provider: Melba Bullock DO This is a 74 yo Female with complex medical hx of Rheumatic heart disease s/p mechanical aortic and mitral valve replacement on 2002 , hx of chronic Afib on Coumadin anticoagulation , hx of CAD s/p CABG , hx of Aflutter s/p cardioversion -follows with [facility] Cardiology presented to ER with complain of Dizzy spell experienced today morning . pt reports going to bed early yesterday evening , had no symptom. around 10 am as she was sitting on her kitchen , felt dizzy /lightheaded , felt left sided chest discomfort, palpitation , no SOB , had headache pt had similar episode 1 year back and sustained a fall she lied down on couch , dizzy spell resolved after few minutes , during ER interview , pt did not had any symptoms , vitals been stable CT head no acute pathology pt will be observed in PCU /Telemetry unit for evaluation of possible symptomatic cardiac arrhythmia . no complain of Fever, chills , no cough , no hx of exposure to COVID 19 positive case . her COVID 19 test negative in ER no GI or complain no weakness or paresthesia Allergies Allergy/AdvReac Type Severity Reaction Status Date / Time lidocaine Allergy Intermediate Rash/hives Verified 04/05/20 15:43 [From Aspercreme (lidocaine)] with cream Sulfa (Sulfonamide Allergy Intermediate Rash, hives Verified 04/05/20 15:43 Antibiotics) latex Allergy Unknown Wheezing Verified 04/05/20 15:43 levothyroxine AdvReac Intermediate Tachycardia Verified 04/05/20 15:43 Home Medications Medication Instructions Recorded Confirmed Type dicyclomine 20 mg PO QID PRN 05/27/18 04/05/20 History furosemide See Rx Instructions .ROUTE 05/27/18 04/05/20 History .COMPLEX PRN metoprolol tartrate 37.5 mg PO BID 05/27/18 04/05/20 History nitroglycerin [Nitrostat] 0.4 mg SUBLINGUAL DIRECTED PRN 05/27/18 04/05/20 History warfarin 1 mg PO 2XWK 05/27/18 04/05/20 History warfarin 2 mg PO 5XWK 11/23/18 04/05/20 History aspirin [Aspirin Low Dose] 81 mg PO QAM 04/05/20 04/05/20 History sertraline 50 mg PO QAM 04/05/20 04/05/20 History Past Med/Surg History Medical History (Updated 04/06/20 @ 09:00 by Prerna Young MD) Anticoagulation goal of INR 2.5 to 3.5 Anxiety Atrial fibrillation Atrial flutter CAD (coronary artery disease) Rheumatic heart disease, on March 04, 2002 patient underwent aortic valve replacement and mitral valve replacement along with CABG x3 with a KIRK to the LAD, right internal mammary artery anastomosis as a free graft to the RCA and a single saphenous vein graft to the diagonal coronary artery and radiofrequency ablation of atrial fibrillation pathways at [facility]. 01/2011 admitted to [facility] secondary to symptomatically A. fib flutter which patient underwent DCCV. Sotalol was started but stopped due to intolerance secondary to nausea and bradycardia. July 2011 Tikosyn loading and successful repeat DCCV. 01/08/12 underwent cardiac catheterization at [facility] and remained on warfarin. Noted to have single-vessel disease 70% mid LAD, 2 of the 3 bypasses were patent. There was obstruction of the SVG to diagonal however, the false pass diagonal had no significant obstruction. 12/24/12 hospitalized at [facility] and underwent redo of mechanical MVR By Dr. Manley. Postop day flutter noted. Tikosyn was discontinued and sent home on amiodarone and metoprolol. 05/3015 admitted to [facility] secondary to symptomatically flutter and tikosyn re-initiated. 11/2015 admitted to [facility] secondary to recurrent symptomatic paroxysmal atrial flutter with RVR, status post DCCV. CKD (chronic kidney disease), stage II pt denies. Depression History of cardioversion multiple (~8 total) most recent October 2018 at [facility]. Follows with Dr. Almeida. History of transesophageal echocardiography (ASHLEY) HLD (hyperlipidemia) HTN (hypertension) Hypothyroidism no medication IBS (irritable bowel syndrome) Liver cirrhosis secondary to BROWNE On anticoagulant therapy Osteoarthritis Paroxysmal atrial flutter Rheumatic heart disease Surgical History (Updated 04/05/20 @ 21:28 by Nelson Winston DO) H/O esophagogastroduodenoscopy History of bilateral breast reduction surgery History of bilateral tubal ligation History of cardiac cath 2002 & ~2013 [facility] History of cataract surgery bilateral History of cholecystectomy History of colonoscopy History of partial thyroidectomy History of tonsillectomy Hx of appendectomy Hx of appendectomy Hx of CABG x3 vessels (2002) at [facility] S/P AVR (aortic valve replacement) "Mechanical 2002 replace aortic valve 2012 - [facility] - Dr Manley" On 05/25/15 15:41 Mel Quevedo wrote "Mechanical 2002" S/P cholecystectomy S/P MVR (mitral valve replacement) "Mechanical 2002" plus a revision S/P NELLY (total abdominal hysterectomy) LSO Family History Mother Colorectal cancer Father FHx: bladder cancer Social History Smoking Status: Never smoker Second Hand Exposure: No; Do You Dip or Chew Tobacco: No; Tobacco Cessation Education Requested by Patient: No Hx Alcohol Use: No Hx Substance Use: No Preferred Language: Khmer Communication Ability: Effective Visual Merchandising Associate Required: No Beliefs That Will Affect Care: None Current Living Situation: Alone Other Information That Helps Us Care for You: No Feels Safe at Home: Yes Safety Concerns: Feels Safe At This Time Assistive Devices: Denture - Upper, Glasses and Hearing Aid - Right Review of Systems Review of Systems: All systems reviewed & are unremarkable except as noted in Subjective Eyes: + problem reported; no diplopia Ear, Nose, Mouth, Throat: + tinnitus (short period of ringing on right ear while dizzy spell ) and + dizziness; no sore throat Respiratory: no cough, no dyspnea, no dyspnea on exertion, no sputum production and no wheezing Cardiovascular: + chest pain, + paroxysmal nocturnal dyspnea, + palpitations and + lightheadedness; no chest pain at rest, no dyspnea, no orthopnea, no syncope and no edema Gastrointestinal: no abdominal pain, no heartburn, no nausea, no vomiting, no change in bowel habits and no problem reported Genitourinary: no dysuria, no urinary frequency and no problem reported Musculoskeletal: no problem reported Integumentary: no problem reported Neurologic: + tingling, + dizziness and + headache(s); no gait abnormality, no unsteadiness, no falls, no localized weakness, no loss of sensation, no paresthesia, no tremor(s), no syncope and no confusion Physical Exam Constitutional: WD/WN, vitals as above Eyes: PERRL, conjunctivae normal, anicteric sclerae ENMT: external ear and nose normal, oropharynx normal Neck: trachea midline, no thyromegaly Respiratory: normal respiratory effort, lungs clear to auscultation Cardiovascular: RRR, no murmur, no edema Gastrointestinal (Abdomen): normal bowel sounds, soft, nontender, no hepatosplenomegaly Musculoskeletal: no cyanosis or clubbing, extremities motor strength 5/5 Skin: no rashes, warm and dry Neurologic: PERRL, EOMI, accommodation nl, no face palsy, no dysarthria Results & Data Results & Data ([facility]) Vital Signs (Past 12 Hours) Vital Signs Temp Pulse Resp BP Pulse Ox 04/05/20 16:10 87 18 98 04/05/20 16:09 87 22 131/83 97 04/05/20 16:00 87 23 97 04/05/20 15:50 87 97 04/05/20 15:40 96 H 19 98 04/05/20 15:30 86 98 04/05/20 15:20 92 H 24 98 04/05/20 15:10 93 H 94 04/05/20 14:50 95 H 22 98 04/05/20 14:46 100 04/05/20 14:40 89 97 04/05/20 14:35 36.8 C 95 H 18 162/73 H 99 04/05/20 14:30 95 H 98 04/05/20 14:27 95 H 20 98 04/05/20 14:25 96 H 22 162/73 H 98 Code Status & VTE Plan VTE Prophylaxis Plan VTE Prophylaxis will be ordered: Yes (1) CAD (coronary artery disease) Coronary Disease-Associated Artery/Lesion type: false pass artery [place] vs. transplanted heart: false pass heart Associated angina: without angina Qualified Code(s): I25.10 - Atherosclerotic heart disease of false pass coronary artery without angina pectoris (2) Atrial fibrillation Atrial fibrillation type: unspecified Qualified Code(s): I48.91 - Unspecified atrial fibrillation
[2020-04-05] MEDS ORDERED: Heparin IV Low Dose *NO* Bolus IV ONE (19:10)
--- NOTE | 2020-04-05 19:12 | Communication Note ---
Date of Service: April 05, 2020 pt has mechanical aortic and mitral valve goal INR 2.5-3.5 continue Coumadin /added IV heparin low dose wt based protocol for bridge therapy ( INR 2.1 -subtherapeutic for mechanical valve , high risk for valve thrombosis ) IV heparin can be D/young when INR 2.5 Prerna Young MD
[2020-04-05] MEDS ORDERED: HEPARIN SODIUM/DEXTROSE 25,000 UNITS/500 ML BAG IV SCH (19:15)
[2020-04-05] MEDS ORDERED: Heparin IV Low Dose *NO* Bolus IV SCH (19:30)
[2020-04-05] MEDS: WARFARIN SOD 2 MG TAB PO SCH (21:59)
[2020-04-05] MEDS: METOPROLOL TARTRATE 25 MG TAB PO SCH (22:04)
[2020-04-06 03:27] LABS: Appearance Urine Clear (Clear); Bacteria Urine Automated Negative (Negative); Bilirubin Urine Negative (Negative); Blood Urine Negative (Negative); Color Urine Yellow; Epithelial Cell Urine Auto >30 /lpf (0-5); Glucose Urine UA Negative (Negative); Ketones Urine Negative (Negative); Leukocyte Esterase Urine 1+ (Negative); Nitrite Urine Negative (Negative); Protein Urine Negative (Negative); RBC Urine Automated 0-4 /hpf (0-4); Urobilinogen Urine Negative (Negative)
[2020-04-06 04:47] LABS: INR 1.8 (0.9-1.1); Partial Thromboplastin Ratio 2.1; Prothrombin Time 17.7 Seconds (9.0-12.0)
[2020-04-06 05:37] LABS: Partial Thromboplastin Time 54.6 Seconds (21.0-31.0)
--- NOTE | 2020-04-06 06:24 | Electrocardiogram Report ---
Test Reason : Blood Pressure : / mmHG Vent. Rate : 096 BPM Atrial Rate : 096 BPM P-R Int : 192 ms QRS Dur : 112 ms QT Int : 404 ms P-R-T Axes : 000 033 -36 degrees QTc Int : 510 ms Normal sinus rhythm Septal infarct (cited on or before 05-APR-2020) Nonspecific ST abnormality Prolonged QT Abnormal ECG When compared with ECG of 09-DEC-2018 08:00, No significant change Confirmed by Zac Grossman ([id number]) on 04/06/2020 6:24:06 AM Referred By: REFERRED SELF Confirmed By:Zac Grossman
[2020-04-06] MEDS: METOPROLOL TARTRATE 25 MG TAB PO SCH (08:12)
[2020-04-06] MEDS: ASPIRIN 81 MG ECTAB PO SCH (08:12)
[2020-04-06] MEDS: SERTRALINE HCL 50 MG TABLET PO SCH (08:12)
[2020-04-06] MEDS ORDERED: FUROSEMIDE 20 MG TAB PO SCH (09:00)
--- NOTE | 2020-04-06 09:07 | Cardiology Consultation ---
Date of Consultation April 06, 2020 Assessment & Plan (1) Tachycardia-bradycardia syndrome: (2) Atrial flutter: (3) Near syncope: (4) Subtherapeutic anticoagulation: (5) S/P AVR (aortic valve replacement): (6) S/P MVR (mitral valve replacement): Telemetry revealing significant for5-second pauses associated with symptoms. Recommend permanent pacemaker implantation. Single-chamber device recommended due to persistent likely chronic atrial flutter. Patient's INR is 1.8 this morn ing. (Goal INR 2.53.5 due to mechanical mitral and aortic valve prosthesis). Recommend discontinue IV heparin in anticipation of pacemaker implantation. Hold AV damon blocking agents. N.p.o. except medications. Defibrillator pads in place. Continue to monitor. Case discussed with electrophysiology. Plan to implant single-chamber pacemaker at approximately 130 this afternoon. Patient remains hemodynamically stable. No indication for temporary transvenous pacer currently. All questions answered to patient satisfaction. Thank you for allowing me to participate in the care of your patient. History of Present Illness Reason for Consultation: dizziness Requesting Physician: Dr. Luna Attending Physician: Prerna Young MD History of Present Illness 74-year-old female presented to the emergency department with dizziness. Complex cardiovascular history listed below. Most recently evaluated in the cardiology clinic 03/29/2020. During that visit, metoprolol titrated to 37.5 mg twice daily. Reports near syncopal episodes yesterday as well as this a.m. Telemetry reveals multiple 4-5-second pauses. Reports isolated syncopal episode approximately 1 year ago. Denies recurrent overt syncope. No orthopnea, PND, or lower extremity edema. Denies signs/symptoms of GI/ blood loss. INR is subtherapeutic today. Intravenous heparin infusing. Offers no other concerns/complaints at this time Cardiac/medical history: 1. Rheumatic heart disease. 2. Status post March 04, 2002 aortic valve replacement with a 21 mm [employer] top hat aortic prosthesis, mitral valve replacement with a [employer] 31-mm mitral prosthesis, CABG x 3 with a KIRK to the LAD, right internal mammary artery anastomosed as a free graft to the RCA, and a single saphenous vein graft to the diagonal coronary artery, and radiofrequency ablation of atrial fibrillation pathways at [facility]. 3. Presentation in November 2011 with exertional chest tightness and shortness of breath, echocardiography at that time revealing increased velocities across the prosthetic aortic valve suggestive of possible prostatic dysfunction. 4. Cardiac catheterization was performed at [facility] on 01/08/12. She remained on Coumadin for the procedure, and it was performed via the left radial artery approach. The coronary arteries were noted to have signi ficant 1 vessel disease (70% mid LAD). Two of the 3 bypasses were patent. There was noted obstruction of the SVG to diagonal, however, this chitina diagonal had no significant obstructive disease in the chitina vessel. 5. Hospitalization in September 2012 with hematemesis. EGD on 10/11/2012 revealed an esophageal ulcer which was treated with Epinephrine injection. The patient remained anticoagulated throughout that hospital stay, discharged on a treatment regimen of Protonix and Carafate. Repeat EGD on 12/09/[address] Colin at [place] showed that the ulcer was healed. 6. Status post December 24, 2012 redo mechanical AVR by Dr. Manley 7. Multiple admissions/hospitalizations with symptomatic atrial fibrillation and atrial flutter. Prior use of sotalol resulted in nausea and significant bradycardia. Failed Tikosyn. Amiodarone discontinued in August. Persistent atrial fibrillation. 8. Diastolic congestive heart failure 9. Hypertension 10. Dyslipidemia Allergies Allergy/AdvReac Type Severity Reaction Status Date / Time lidocaine Allergy Intermediate Rash/hives Verified 04/05/20 15:43 [From Aspercreme (lidocaine)] with cream Sulfa (Sulfonamide Allergy Intermediate Rash, hives Verified 04/05/20 15:43 Antibiotics) latex Allergy Unknown Wheezing Verified 04/05/20 15:43 levothyroxine AdvReac Intermediate Tachycardia Verified 04/05/20 15:43 Home Medications Medication Instructions Recorded Confirmed Type dicyclomine 20 mg PO QID PRN 05/27/18 04/05/20 History furosemide See Rx Instructions .ROUTE 05/27/18 04/05/20 History .COMPLEX PRN metoprolol tartrate 37.5 mg PO BID 05/27/18 04/05/20 History nitroglycerin [Nitrostat] 0.4 mg SUBLINGUAL DIRECTED PRN 05/27/18 04/05/20 History warfarin 1 mg PO 2XWK 05/27/18 04/05/20 History warfarin 2 mg PO 5XWK 11/23/18 04/05/20 History aspirin [Aspirin Low Dose] 81 mg PO QAM 04/05/20 04/05/20 History sertraline 50 mg PO QAM 04/05/20 04/05/20 History Patient History Medical History (Updated 04/06/20 @ 10:17 by Tayo Granda DO) Anticoagulation goal of INR 2.5 to 3.5 Anxiety Atrial fibrillation Atrial flutter CAD (coronary artery disease) Rheumatic heart disease, on March 04, 2002 patient underwent aortic valve replacement and mitral valve replacement along with CABG x3 with a KIRK to the LAD, right internal mammary artery anastomosis as a free graft to the RCA and a single saphenous vein graft to the diagonal coronary artery and radiofrequency ablation of atrial fibrillation pathways at [facility]. 01/2011 admitted to [facility] secondary to symptomatically A. fib flutter which patient underwent DCCV. Sotalol was started but stopped due to intolerance secondary to nausea and bradycardia. July 2011 Tikosyn loading and successful repeat DCCV. 01/08/12 underwent cardiac catheterization at [facility] and remained on warfarin. Noted to have single-vessel disease 70% mid LAD, 2 of the 3 bypasses were patent. There was obstruction of the SVG to diagonal however, the chitina diagonal had no significant obstruction. 12/24/12 hospitalized at [facility] and underwent redo of mechanical MVR By Dr. Manley. Postop day flutter noted. Tikosyn was discontinued and sent home on amiodarone and metoprolol. 05/3015 admitted to [facility] secondary to symptomatically flutter and tikosyn re-initiated. 11/2015 admitted to [facility] secondary to recurrent symptomatic paroxysmal atrial flutter with RVR, status post DCCV. CKD (chronic kidney disease), stage II pt denies. Depression History of cardioversion multiple (~8 total) most recent October 2018 at [facility]. Follows with Dr. Almeida. History of transesophageal echocardiography ([facility]) HLD (hyperlipidemia) HTN (hypertension) Hypothyroidism no medication IBS (irritable bowel syndrome) Liver cirrhosis secondary to BROWNE On anticoagulant therapy Osteoarthritis Paroxysmal atrial flutter Rheumatic heart disease Surgical History H/O esophagogastroduodenoscopy History of bilateral breast reduction surgery History of bilateral tubal ligation History of cardiac cath 2002 & ~2013 [facility] History of cataract surgery bilateral History of cholecystectomy History of colonoscopy History of partial thyroidectomy History of tonsillectomy Hx of appendectomy Hx of appendectomy Hx of CABG x3 vessels (2002) at [facility] S/P AVR (aortic valve replacement) "Mechanical 2002 replace aortic valve 2012 - [facility] - Dr Manley" On 05/25/15 15:41 Mel Quevedo wrote "Mechanical 2002" S/P cholecystectomy S/P MVR (mitral valve replacement) "Mechanical 2002" plus a revision S/P NELLY (total abdominal hysterectomy) LSO Family History Mother Colorectal cancer Father FHx: bladder cancer Social History Smoking Status: Never smoker Second Hand Exposure: No; Do You Dip or Chew Tobacco: No; Tobacco Cessation Education Requested by Patient: No Hx Alcohol Use: No Hx Substance Use: No Preferred Language: Pashto Communication Ability: Effective Health And Safety Representative Required: No Beliefs That Will Affect Care: None Current Living Situation: Alone Other Information That Helps Us Care for You: No Feels Safe at Home: Yes Safety Concerns: Feels Safe At This Time Assistive Devices: Denture - Upper, Glasses and Hearing Aid - Right Review of Systems Review of Systems: All systems reviewed & are unremarkable except as noted in Subjective Physical Exam Constitutional: well developed and well nourished; no acute distress and not ill appearing Eyes: PERRL, conjunctivae normal, anicteric sclerae Respiratory: normal respiratory effort, lungs clear to auscultation Auscultation: no crackles, no rales, no rhonchi and no wheezes Cardiovascular: Rate/Rhythm: + irregularly irregular Heart Sounds: normal S1, normal S2, + click and + murmur (2/6 low pitched systolic murmur heard best at the cardiac base.) Vessels: no JVD and no carotid bruit Extremities: no edema Gastrointestinal (Abdomen): Inspection/Auscultation: abdomen normal to inspection and normal bowel sounds; abdomen not distended Percussion/Palpation: abdomen soft; abdomen nontender, no guarding and abdomen not rigid Musculoskeletal: Head/Neck/Chest: normocephalic and head atraumatic Neurologic: moves all extremities and awake; no focal motor deficits Motor/Sensory: no tremor Psychiatric: A+Ox3, euthymic affect Results & Data ([facility]) Vital Signs (Past 12 Hours) Vital Signs Temp Pulse Pulse Resp BP Pulse Ox 04/06/20 07:50 36.5 C 69 18 119/83 96 04/06/20 03:17 36.7 C 81 16 119/67 96 04/05/20 23:45 36.9 C 82 16 146/69 H 95 04/05/20 23:12 87 (1) Atrial flutter Atrial flutter type: atypical Qualified Code(s): I48.4 - Atypical atrial flutter
[2020-04-06] MEDS ORDERED: LOPERAMIDE HCL 2 MG CAP PO PRN (10:39)
[2020-04-06] MEDS: ADVANCED PROBIOTIC 1250 MG CAPSULE PO SCH (11:34)
[2020-04-06] MEDS ORDERED: MIDAZOLAM HCL 5 MG/ML 1 ML VIAL ONE (13:29)
[2020-04-06] MEDS ORDERED: BUPIVACAINE 0.25% 30 ML VIAL ONE (13:29)
[2020-04-06] MEDS ORDERED: LIDOCAINE HCL 1% 20 ML VIAL ONE (13:29)
[2020-04-06] MEDS ORDERED: BACITRACIN INJ 50,000 UNIT VIAL ONE (13:29)
[2020-04-06] MEDS ORDERED: fentaNYL citrate 100 MCG/2 ML VIAL ONE ×2 (13:29→14:43)
--- NOTE | 2020-04-06 13:37 | Electrocardiogram Report ---
Test Reason : Blood Pressure : / mmHG Vent. Rate : 087 BPM Atrial Rate : 087 BPM P-R Int : 180 ms QRS Dur : 112 ms QT Int : 422 ms P-R-T Axes : 000 052 -80 degrees QTc Int : 507 ms Normal sinus rhythm Septal infarct (cited on or before 05-APR-2020) Abnormal ECG When compared with ECG of 05-APR-2020 14:25, No significant change was found Confirmed by Efrain Palacios ([id number]) on 04/06/2020 1:36:35 PM Referred By: REFERRED SELF Confirmed By:Efrain Palacios
[2020-04-06] MEDS ORDERED: WARFARIN SOD 3 MG TAB PO ONE (14:00)
--- NOTE | 2020-04-06 14:08 | History & Physical Bridge Note ---
Date of Service April 06, 2020 History & Physical Bridge Note I have examined the patient, reviewed the History & Physical and in the interval since the performance of the History & Physical I have noted the following changes of clinical significance: Pt with TBS and permanent AF and syncope with profound pauses
--- NOTE | 2020-04-06 14:08 | Pre Anesthesia Assessment ---
Date of Service April 06, 2020 Pre Sedation Assessment Vital Signs Temp Pulse Pulse Resp BP BP Pulse Ox 04/06/20 11:58 36.9 C 87 16 127/77 94 04/06/20 07:50 36.5 C 69 18 119/83 96 04/06/20 03:17 36.7 C 81 16 119/67 96 04/05/20 23:45 36.9 C 82 16 146/69 H 95 04/05/20 23:12 87 04/05/20 20:23 36.7 C 85 20 165/83 H 95 04/05/20 20:01 92 H 95 04/05/20 20:00 92 H 21 129/97 94 04/05/20 19:50 92 H 94 04/05/20 19:40 92 H 17 95 04/05/20 19:36 91 H 20 94 04/05/20 19:30 88 22 137/88 94 04/05/20 19:20 89 18 94 04/05/20 19:10 89 23 94 04/05/20 19:01 89 19 96 04/05/20 19:00 89 22 122/83 96 04/05/20 18:50 90 18 95 04/05/20 18:40 90 22 96 04/05/20 18:31 90 19 95 04/05/20 18:30 89 22 132/78 96 04/05/20 18:20 89 17 97 04/05/20 18:10 88 20 94 04/05/20 18:00 89 24 146/70 H 95 04/05/20 17:50 90 19 95 04/05/20 17:40 88 94 04/05/20 17:31 88 94 04/05/20 17:30 87 20 156/84 H 94 04/05/20 17:20 89 22 95 04/05/20 17:10 88 19 94 04/05/20 17:01 88 16 126/72 97 04/05/20 17:00 87 18 04/05/20 16:50 89 96 04/05/20 16:40 88 97 04/05/20 16:30 88 22 97 04/05/20 16:20 87 12 96 04/05/20 16:10 87 18 98 04/05/20 16:09 87 22 131/83 97 04/05/20 16:00 87 23 97 04/05/20 15:50 87 97 02/04/21 15:40 96 H 19 98 04/05/20 15:30 86 98 04/05/20 15:20 92 H 24 98 04/05/20 15:10 93 H 94 04/05/20 14:50 95 H 22 98 04/05/20 14:46 100 04/05/20 14:40 89 97 04/05/20 14:35 36.8 C 95 H 18 162/73 H 99 04/05/20 14:30 95 H 98 04/05/20 14:27 95 H 20 98 04/05/20 14:25 96 H 22 162/73 H 98 Cardiovascular + irregularly irregular Respiratory normal respiratory effort, lungs clear to auscultation Pre-Sedation Airway Assessment Smoking Status: Never smoker Hx Sleep Apnea: No Short, Thick Neck: No Thyromental Distance: > or= 3.5 Finger Breadths Oral Cavity: + Dentures Mallampati Class: III ASA: ASA4 NPO Status Date of Last Intake of Fluids: 04/06/20 Time of Last Intake of Fluids: 08:00 Date of Last Intake of Solid Food: 04/06/20 Time of Last Intake of Solid Foods: 08:00 Procedure Planning Contraindications for Sedation: none Current Medications Reviewed: Yes Notes The planned sedation has been discussed with the patient. Informed Consent was obtained. I have identified the patient, determined the appropriateness of sedation and have assessed the patient immediately prior to the procedure. All medicine(s) and interventions are by my order.
--- NOTE | 2020-04-06 15:32 | Post Anesthesia Assessment ---
Date of Service April 06, 2020 Post Sedation Assessment Vital Signs Temp Pulse Pulse Resp BP BP Pulse Ox 04/06/20 11:58 36.9 C 87 16 127/77 94 04/06/20 07:50 36.5 C 69 18 119/83 96 04/06/20 03:17 36.7 C 81 16 119/67 96 04/05/20 23:45 36.9 C 82 16 146/69 H 95 04/05/20 23:12 87 04/05/20 20:23 36.7 C 85 20 165/83 H 95 04/05/20 20:01 92 H 95 04/05/20 20:00 92 H 21 129/97 94 04/05/20 19:50 92 H 94 04/05/20 19:40 92 H 17 95 04/05/20 19:36 91 H 20 94 04/05/20 19:30 88 22 137/88 94 04/05/20 19:20 89 18 94 04/05/20 19:10 89 23 94 04/05/20 19:01 89 19 96 04/05/20 19:00 89 22 122/83 96 04/05/20 18:50 90 18 95 04/05/20 18:40 90 22 96 04/05/20 18:31 90 19 95 04/05/20 18:30 89 22 132/78 96 04/05/20 18:20 89 17 97 04/05/20 18:10 88 20 94 04/05/20 18:00 89 24 146/70 H 95 04/05/20 17:50 90 19 95 04/05/20 17:40 88 94 04/05/20 17:31 88 94 04/05/20 17:30 87 20 156/84 H 94 04/05/20 17:20 89 22 95 04/05/20 17:10 88 19 94 04/05/20 17:01 88 16 126/72 97 04/05/20 17:00 87 18 04/05/20 16:50 89 96 04/05/20 16:40 88 97 04/05/20 16:30 88 22 97 04/05/20 16:20 87 12 96 04/05/20 16:10 87 18 98 04/05/20 16:09 87 22 131/83 97 04/05/20 16:00 87 23 97 04/05/20 15:50 87 97 02/04/21 15:40 96 H 19 98 Recovery Score Activity: Moves 4 extremities Respiration: Deep Breath/Cough Circulation: +/-20% PreAnes Value Consciousness: Fully Awake Oxygen Saturation: > 92% On Room Air Discharge Sedation Level of Care: Fast Track Phase II Post Sedation Plan On clinical assessment, the patient appears to have tolerated the sedation without complications. Patient is recovering as anticipated. Patient will continue to be monitored by nursing and may be discharged when sedation discharge criteria are met per below protocol. Upon Completions of procedure up to 15 minutes continue every 5 minute vital signs and the P.A.R. score; then discharge to a Phase I or Fast Track to Phase II per the following guidelines: * Discharge Patient to appropriate Phase II area if PAR is 8 or greater or return to pre- procedure baseline. The post - procedure orders will be as directed. * If PAR score is less than 8 or not return to pre-procedure baseline then patient will follow Phase I monitoring till PAR is reached for Phase II. The Phase I may be done in procedure room or may call to secure a Phase I area. * If naloxone or flumazenil are used for reversal, hold in Phase I for continued monitoring from when last reversal dose was given for a minimum of 60 minutes or longer pending the nurse and/or physician discretion of patient condition before discharge to Phase II. Please call the Sedation Physician to re-evaluate and complete post-note for discharge to Phase II area. Do NOT discharge from procedure sedation or Phase 1 until post- sedation evaluation note is complete by procedure /sedation MD Sedation Discharge Instructions to be given to the patient at discharge to home.
--- NOTE | 2020-04-06 15:33 | Operative Report ---
Post Operative Report Pre & Post Diagnosis Intermittent High degree AV block; TBS; permanent AF Operation Date: 04/06/20 13:30 <No data on this case meets the specified criteria> I identified the patient and participated in the time-out.: Yes Procedure Operation Date: 04/06/20 13:30 Actual Procedures p Pacemaker Insertion(Left) - Marva Cheung DO Surgeon Marva Cheung, Re Etcher none Estimated Blood Loss 35 Findings Consistent with Post-Op Diagnosis Specimens none Description of Procedure see official report I attest to the content of the Intraoperative Record and any orders documented therein. Any exceptions are noted below.
[2020-04-06] MEDS ORDERED: Nursing to Pharmacy Communication SCH (15:45)
[2020-04-06] MEDS ORDERED: WARFARIN SOD 1 MG TAB PO SCH (16:00)
[2020-04-06] MEDS: ACETAMINOPHEN 325 MG TAB PO PRN (17:48)
--- NOTE | 2020-04-06 19:54 | Hospitalist Progress Note ---
Date of Service April 06, 2020 Assessment & Plan (1) Dizziness: admitted brief episode of dizzy spell /complains of intermittent palpitation on and off for past few days -due to symptomatic bathycardia /sinus pause noted on monitor no syncope scheduled for pacemaker placement Cardiology following (2) S/P AVR (aortic valve replacement): hx of rheumatic heart disease on March 04, 2002 patient underwent aortic valve replacement and mitral valve replacement along with CABG x3 with a KIRK to the LAD, right internal mammary artery anastomosis as a free graft to the RCA and a single saphenous vein graft to the diagonal coronary artery and radiofrequency ablation of atrial fibrillation pathways at [facility]. Goal INR 2.5-3.5 INR 1.8 Iv heparin bridge kept on hold for pacemaker placement Chronic Afib : pt remains in rate controlled Aib , beta natacha kept on hold for sinus pause pacemaker placement per cardiology (3) Rheumatic heart disease: (4) Anticoagulation goal of INR 2.5 to 3.5: (5) CAD (coronary artery disease): no chest pain or angina symptoms beta natacha d/young for symptomatic bradycardia /sinus pause (6) Atrial fibrillation: mended (7) CKD (chronic kidney disease), stage II: renal function stable FULL CODE DVT prophylaxis : coumadin Disposition : Discharge home when medically stable Admission and Anticipated Discharge Date Admission Date: April 05, 2020 Subjective follow up visit for Dizzy spell : sinus pause noted on tele monitor , pt was symptomatic appreciate input for cardiology scheduled to have pacemaker placement d/c beta natacha no complain of SOB , no recurrence of chest pain , no fever or chills , no cough Review of Systems Review of Systems: All systems reviewed & are unremarkable except as noted in Subjective Physical Exam Constitutional: WD/WN, vitals as above Eyes: PERRL, conjunctivae normal, anicteric sclerae ENMT: external ear and nose normal, oropharynx normal Neck: trachea midline, no thyromegaly Respiratory: normal respiratory effort, lungs clear to auscultation Cardiovascular: RRR, no murmur, no edema Gastrointestinal (Abdomen): normal bowel sounds, soft, nontender, no hepatosplenomegaly Musculoskeletal: no cyanosis or clubbing, extremities motor strength 5/5 Skin: no rashes, warm and dry Neurologic: PERRL, EOMI, accommodation nl, no face palsy, no dysarthria Results & Data Results & Data ([facility]) Vital Signs (Past 12 Hours) Vital Signs Temp Pulse Pulse Pulse Resp BP Pulse Ox 04/06/20 18:22 91 H 117/71 04/06/20 18:00 100 H 110/56 L 04/06/20 17:22 90 105/67 04/06/20 16:52 91 H 100/65 04/06/20 16:30 87 04/06/20 16:22 36.5 C 87 20 102/67 93 04/06/20 16:11 85 16 119/69 96 04/06/20 16:07 85 16 130/79 97 04/06/20 15:53 87 14 97/57 L 92 04/06/20 15:40 86 16 114/69 94 04/06/20 11:58 36.9 C 87 16 127/77 94 (1) CAD (coronary artery disease) Coronary Disease-Associated Artery/Lesion type: [place] artery [place] vs. transplanted heart: [place] heart Associated angina: without angina Qualified Code(s): I25.10 - Atherosclerotic heart disease of [place] coronary artery without angina pectoris (2) Atrial fibrillation Atrial fibrillation type: unspecified Qualified Code(s): I48.91 - Unspecified atrial fibrillation
[2020-04-06] MEDS ORDERED: diphenhydrAMINE Capsule 25 MG CAP PO ONE (20:42)
[2020-04-06] MEDS ORDERED: diphenhydrAMINE Capsule 25 MG CAP PO PRN (20:42)
[2020-04-07 04:39] LABS: Partial Thromboplastin Ratio 1.5; Partial Thromboplastin Time 39.6 Seconds (21.0-31.0); Prothrombin Time 18.9 Seconds (9.0-12.0)
[2020-04-07] MEDS: ASPIRIN 81 MG ECTAB PO SCH (08:44)
[2020-04-07] MEDS: ADVANCED PROBIOTIC 1250 MG CAPSULE PO SCH (08:44)
[2020-04-07] MEDS: SERTRALINE HCL 50 MG TABLET PO SCH (08:44)
[2020-04-07] MEDS: ACETAMINOPHEN 325 MG TAB PO PRN ×2 (08:54→17:10)
[2020-04-07] MEDS ORDERED: FUROSEMIDE 20 MG TAB PO SCH (09:00)
--- NOTE | 2020-04-07 09:26 | XRay Report ---
XR chest 2V PA/lateral HISTORY: Status post pacemaker placement. COMPARISON: Chest 04/05/2020. FINDINGS: Interval placement left-sided single lead pacemaker. The lead appears intact. No pneumothor ax. No pleural effusions. The heart is stable in size. Poststernotomy changes and cardiac valve prost heses are again noted. IMPRESSION: Status post left sided pacemaker. No pneumothorax. ACT 112: Negative or not required by law. Electronically signed by: Tito Izaguirre M.D. 04/07/2020 9:25 AM
--- NOTE | 2020-04-07 10:54 | Cardiology Progress Note ---
Date of Service April 07, 2020 Assessment & Plan (1) Tachycardia-bradycardia syndrome: Patient presented with intermittent dizzy spells with monitor reflecting atrial fibrillation now persistent and intermittent pauses of greater than 4 seconds. Reflecting tachybradycardia syndrome. Patient underwent successful single-chamber pacemaker insertion yesterday without difficulty. No complications and site healing well. Device functioning appropriately Plan: Resume metoprolol tartrate at 25 mg twice per day note mild dose reduction Continue chronic anticoagulation. Would give additional 3 mg dose today then resume usual dosing Patient is ambulatory, this afternoon stable for discharge later today Follow-up cardiology 1 week (2) Atrial flutter: (3) Near syncope: (4) Subtherapeutic anticoagulation: (5) S/P AVR (aortic valve replacement): (6) S/P MVR (mitral valve replacement): Admission and Anticipated Discharge Date Admission Date: April 05, 2020 Subjective Patient was seen and examined, chart, medications, telemetry personally reviewed Overall feels well this morning. No dizziness or lightheadedness. Pacemaker site healing well with normal pacemaker function determined by interrogation. No fevers or chills no chest pain or discomfort no pleuritic discomfort no cough Ambulatory in room without difficulty Chest x-ray without pneumothorax or infiltrate Review of Systems Review of Systems: All systems reviewed & are unremarkable except as noted in HPI & below Physical Exam Constitutional: WD/WN, vitals as above Eyes: PERRL, conjunctivae normal, anicteric sclerae ENMT: external ear and nose normal, oropharynx normal Neck: trachea midline, no thyromegaly Respiratory: normal respiratory effort, lungs clear to auscultation Cardiovascular: Rate/Rhythm: + irregularly irregular Heart Sounds: normal S1, normal S2 and + murmur (Grade 1/6 systolic murmur with crisp mechanical valve sounds audible); no gallop Palpation: normal PMI Vessels: normal carotid upstroke and radial pulses present; no JVD and no carotid bruit Extremities: no edema Chest (Breasts): Chest: + pacemaker (Insertion site healing well) Gastrointestinal (Abdomen): normal bowel sounds, soft, nontender, no hepatosplenomegaly Musculoskeletal: no cyanosis or clubbing, extremities motor strength 5/5 Skin: no rashes, warm and dry Neurologic: PERRL, EOMI, accommodation nl, no face palsy, no dysarthria Psychiatric: A+Ox3, euthymic affect Results & Data ([facility]) Vital Signs (Past 12 Hours) Vital Signs Temp Pulse Pulse Pulse Resp BP Pulse Ox 04/07/20 07:00 88 04/07/20 06:57 36.7 C 85 18 100/62 85 L 04/07/20 03:44 36.7 C 84 16 111/67 91 04/06/20 23:14 36.9 C 75 16 117/69 91 Laboratory Results Laboratory Results - last 24 hr 04/07/20 04:15 PT 18.9 H INR 2.0 H APTT 39.6 H PTT Ratio 1.5 (1) Atrial flutter Atrial flutter type: atypical Qualified Code(s): I48.4 - Atypical atrial flutter
[2020-04-07] MEDS ORDERED: METOPROLOL TARTRATE 25 MG TAB PO SCH (12:00)
[2020-04-07] MEDS ORDERED: WARFARIN SOD 3 MG TAB PO STA (12:58)
--- NOTE | 2020-04-07 13:04 | Communication Note ---
Date of Service: April 07, 2020 pt had pacemaker placement yesterday for tachybrady syndrome evaluated by cardiology today Pacemaker function normal , pacemaker insertion site healing well Metoprolol resumed , dose reduced to 25 mg BID ( was on 37.5 mg BID ) INR 2 ( goal INR 2.5 -3.5 ) has mechanical aortic and mitral valve scheduled for 2 mg PO Coumadin today , ordered 3 mg extra dose ( total 5 mg ) today as per Cardiology recommendation pt will resumed her usual dose or Coumadin form tomorrow . Pacemaker wound /insertion site check arranged in a week follow up at [facility] Pacemaker clinic on next Thursday plan to discharge pt home with above medications changes today afternoon Prerna Young MD
[2020-04-07] MEDS: WARFARIN SOD 2 MG TAB PO SCH (15:31)
[2020-04-07] MEDS ORDERED: predniSONE 20 MG TAB PO STA (16:10)
--- NOTE | 2020-04-07 17:44 | Discharge Summary ---
Date of Service April 07, 2020 Admission HPI Per Admitting Provider This is a 74 yo Female with complex medical hx of Rheumatic heart disease s/p mechanical aortic and mitral valve replacement on 2002 , hx of chronic Afib on Coumadin anticoagulation , hx of CAD s/p CABG , hx of Aflutter s/p cardioversion -follows with [facility] presented to ER with complain of Dizzy spell experienced today morning . pt reports going to bed early yesterday evening , had no symptom. around 10 am as she was sitting on her kitchen , felt dizzy /lightheaded , felt left sided chest discomfort, palpitation , no SOB , had headache pt had similar episode 1 year back and sustained a fall she lied down on couch , dizzy spell resolved after few minutes , during ER interview , pt did not had any symptoms , vitals been stable CT head no acute pathology pt will be observed in PCU /Telemetry unit for evaluation of possible symptomatic cardiac arrhythmia . no complain of Fever, chills , no cough , no hx of exposure to COVID 19 positive case . her COVID 19 test negative in ER no GI or complain no weakness or paresthesia Principal Diagnosis Tachybrady syndrome Dizzy spell /symptomatic Bradycardia /sinus pause S/p Pacemaker placement Hx of mechanical Aortic and Mitral valve Chronic anticoagulation with Coumadin Discharge Exam Constitutional WD/WN, vitals as above Eyes PERRL, conjunctivae normal, anicteric sclerae ENMT external ear and nose normal, oropharynx normal Neck trachea midline, no thyromegaly Respiratory normal respiratory effort, lungs clear to auscultation Cardiovascular RRR, no murmur, no edema Gastrointestinal (Abdomen) normal bowel sounds, soft, nontender, no hepatosplenomegaly Musculoskeletal no cyanosis or clubbing, extremities motor strength 5/5 Skin no rashes, warm and dry Neurologic PERRL, EOMI, accommodation nl, no face palsy, no dysarthria Discharge Data Allergies Allergy/AdvReac Type Severity Reaction Status Date / Time lidocaine Allergy Intermediate Rash/hives Verified 04/05/20 15:43 [From Aspercreme (lidocaine)] with cream Sulfa (Sulfonamide Allergy Intermediate Rash, hives Verified 04/05/20 15:43 Antibiotics) latex Allergy Unknown Wheezing Verified 04/05/20 15:43 levothyroxine AdvReac Intermediate Tachycardia Verified 04/05/20 15:43 Consultations 04/05/20 17:46 ED Decision to Admit Stat 04/05/20 18:01 Consult Cardiology Routine 04/05/20 18:03 Consult Case Management - Discharge Planning Routine Procedures Performed Operation Date: 04/06/20 13:30 Actual Procedures p Pacer with Ventricular Lead - Marva Cheung DO s Venogram, Unilateral - Marva Cheung DO Ordered Studies 04/05/20 14:37 CT head/brain wo con Stat 04/06/20 14:03 CL Cath Imgs for PACS use only Routine Hospital Course (1) Dizziness: admitted brief episode of dizzy spell /complains of intermittent palpitation on and off for past few days -due to symptomatic bathycardia /sinus pause noted on monitor no syncope tachybrady syndrome s/p pacemaker placement yesterday 04/06/20 evaluated by cardiology this AM , pacemaker site healing well Metoprolol dose reduced to 25 mg twice daily ( was on 37.5 mg twice daily ) stable to be discharged home today pacemaker and surgical site check scheduled at [facility] Cardiology on Thursday04/13/2020 at 10:45am Itching /allergic reaction /rash on hands and arms : pt developed redness with swelling and itching post pacemaker procedure appears to be hives possible allergic to Lidocaine -used during procedure ( had similar hives , itching with Lidocaine patch ) ordered for Benadryl PRN and Benadryl cream for Local application symptoms much improved today (2) S/P AVR (aortic valve replacement): hx of rheumatic heart disease on March 04, 2002 patient underwent aortic valve replacement and mitral valve replacement along with CABG x3 with a KIRK to the LAD, right internal mammary artery anastomosis as a free graft to the RCA and a single saphenous vein graft to the diagonal coronary artery and radiofrequency ablation of atrial fibrillation pathways at [facility]. Goal INR 2.5-3.5 INR 2 today given extra dose of 3 mg Coumadin today ( got scheduled dose of 2 mg ) : total 5 mg repeat INR on Sunday 04/09 at [facility] Coumadin clinic Chronic Afib : pt remains in rate controlled Aib , tachybrady syndrome with symptomatic bradycardia s/p pacemaker placement beta natacha dose adjusted as above (3) Rheumatic heart disease: (4) Anticoagulation goal of INR 2.5 to 3.5: (5) CAD (coronary artery disease): no chest pain or angina symptoms no evidence of acute coronary event (6) Atrial fibrillation: (7) CKD (chronic kidney disease), stage II: renal function stable FULL CODE DVT prophylaxis : Coumadin Disposition : pt is discharged home today Total Time Total Time Spent Total Time Spent (In Minutes): 35 mins Total Time Includes: Examination of the Patient, Discharge Planning and Medication Reconciliation Discharge Plan Discharge Items Patient Disposition: Home - Self-Care Reason For Visit: DIZZY SPELL Discharge Diagnosis: Tachybrady syndrome Dizzy spell /symptomatic Bradycardia /sinus pause S/p Pacemaker placement Hx of mechanical Aortic and Mitral valve Chronic anticoagulation with Coumadin Activity: As commented below Activity Comment: do not lift your left elbow over your left shoulder for 1 month Lifting: No more than 10 pounds Lifting Comment: do not lift more than 10 pounds with the left arm for 2 weeks Bathing: Keep incision dry Bathing Comment: keep dressing on and dry until wound check next week Non-emergency contact: Primary Care Provider Call non-emergency contact if: you have any medication questions Follow-up/Referrals: Kin Simmons MD [Physician] - (in 2 weeks ) Melba Bullock DO [Primary Care Provider] - Diet: Heart Healthy Addtl Attending Provider Instructions: device and wound check at [facility] Cardiology on thursday04/13/2020 at 10:45am If you notice any swelling at the device site call [facility] immediately Try to wear a sports bra or surgical bra for the next 2 weeks to assist with wound healing Lab work : PT/INR on Thursday04/09/20 Family physician follow up in 1 week , office will call with appointment please utilize over the counter Benadryl as needed for itching /rash on hands and arms Pending Studies at Discharge: No Stand-Alone Forms: My [facility] [place] - 2, Smoking Cessation Medications and DC Order Prescriptions: Continued dicyclomine 20 mg Tablet 20 mg PO QID PRN (Reason: Abdominal Discomfort) RF: 0 nitroglycerin [Nitrostat] 0.4 mg Tablet, Sublingual 0.4 mg sublingual DIRECTED PRN (Reason: Chest Pain) RF: 0 furosemide 20 mg Tablet See Rx Instructions .ROUTE .COMPLEX PRN (Reason: Edema) RF: 0 warfarin 1 mg Tablet 1 mg PO 2XWK RF: 0 warfarin 1 mg Tablet 2 mg PO 5XWK RF: 0 aspirin [Aspirin Low Dose] 81 mg Tablet,Delayed Release (Dr/Ec) 81 mg PO QAM RF: 0 sertraline 50 mg tablet 50 mg PO QAM RF: 0 Changed metoprolol tartrate 25 mg Tablet 25 mg PO BID Qty: 0 RF: 0 Discharge Orders: Discharge Order (Routine); Ordered 04/07/20 Ordered By: Prerna Young Admission Data Admit Date/Time: 04/05/20 18:01 Attending Provider: Prerna Young Admit Provider: Prerna Young Primary Care Provider: Melba Bullock Other Providers: Prerna Young ; Hugo Song ; Dillon Almeida ; Kin Simmons ; Tayo Granda ; Ryan Nath ; Ralph Jonas ; Shaina Ivan ; Marva Cheung ; Louie Watson Other Interventions: Discharge Summary Assessment (RN) Last Done: 04/07/20 17:02
--- NOTE | 2020-04-08 11:15 | Electrocardiogram Report ---
Test Reason : Blood Pressure : / mmHG Vent. Rate : 091 BPM Atrial Rate : 091 BPM P-R Int : 088 ms QRS Dur : 110 ms QT Int : 420 ms P-R-T Axes : 116 054 -31 degrees QTc Int : 516 ms Sinus rhythm Anteroseptal infarct (cited on or before 05-APR-2020) T wave abnormality, consider inferior ischemia Prolonged QT Abnormal ECG When compared with ECG of 06-APR-2020 06:53, No significant change Confirmed by Lamin Pichardo ([id number]) on 04/08/2020 11:15:16 AM Referred By: REFERRED SELF Confirmed By:Lamin Pichardo
--- NOTE | 2020-04-10 19:31 | Operative Report (OR) ---
DATE OF OPERATION: 04/06/2020 PREOPERATIVE DIAGNOSES: Tachybrady syndrome and permanent atrial fibrillation. POSTOPERATIVE DIAGNOSES: Tachybrady syndrome and permanent atrial fibrillation. PROCEDURE: Single chamber rate responsive permanent pacemaker under fluoroscopic guidance along with peripheral venogram. SURGEON: Marva Cheung DO. ASSISTANTS: None. ANESTHESIA: Monitored conscious sedation administered under my supervision by Owen Perez. Start time 1412, end time 1530. A total of 4 mg of Versed, 100 mcg of fentanyl. INTRAVENOUS FLUIDS: 50 mL. ANTIBIOTICS: 1 gram of Ancef. CONTRAST: 10 mL of OptiSeal. BLOOD LOSS: 40 mL. COMPLICATIONS: None. CONDITION: Stable. URINE OUTPUT: Not applicable. SPECIMENS: None. FINDINGS: See below. DRAINS: None. INDICATIONS: This is a 74-year-old female who has a past medical history for permanent atrial fibrillation/flutter, the AVR and MVR mechanical replacements in 2002 with a redo AVR in 2011, rheumatic heart disease, coronary artery disease, status post CABG with a KIRK to LAD and LINDA to RCA and SVG to diagonal in 2002, PVI ablation at [facility] at the time of the CABG as well. Additional past medical history; chronic heart failure with preserved ejection fraction, diastolic dysfunction, hypertension, hyperlipidemia. She has been having episodes of syncope and was admitted to [facility] for syncope and then found to have pauses and she had evidence of marked bradyarrhythmias with syncope while in her permanent AFib on telemetry, so she was recommended a pacemaker prior to discharge. CONSENT: Consent was obtained prior to the patient going into electrophysiology lab. The patient was informed of the risks, benefits and alternative to procedure. Risks include but not limited to sudden cardiac , cardiac arrhythmias, cerebrovascular accident, myocardial infarction, injury to the blood vessels, chamber of the heart, lung, bleeding, and infection. The patient understood these risks and agreed to the procedure as planned. Informed consent was obtained. DESCRIPTION OF THE PROCEDURE: The patient was brought into the electrophysiology lab in fasting state. She was connected to continuous neurosurgery physician. Timeout was performed to ensure patient identity and procedure correctly. She was prepped and draped over the left infraclavicular space in normal surgical standard fashion. She received prophylactic antibiotics prior to incision. Monitored conscious sedation was given throughout the procedure for patient's comfort level. [place] precautions were maintained throughout the procedure. 10 mL of 1% lidocaine-bupivacaine mixture were given in the left deltopectoral groove. Incision was made in the left deltopectoral groove. Blunt dissection was performed down to identify cephalic vein; however, none could be identified, so a peripheral venogram was performed and then axillary venous access was obtained. Of note, I did hit the artery at one time, so pressure was held. Then we got axillary access through the vein and a guidewire was inserted without any resistance. A 7-Thai sheath was inserted through the guidewire, and the guidewire and dilator were removed. However, when I was trying to advance the lead, it was getting stuck right in an area in the subclavian vein near the costoclavicular border. So then I swapped out for a long sheath, then I had problems with the long sheath getting into the right ventricle. I ultimately ended up having to go through multiple sheaths until I was finally able to pass the right ventricular pacing lead down into the right ventricle and position it down into the right ventricular septum. There was adequate pacing and sensing thresholds and no diaphragmatic stimulation with high output pacing. The sheath was then slit and the lead was fixated to pectoralis muscle using 0 silk suture. A pursestring was placed around the access site with 2-0 Vicryl to prevent any backbleeding. Then the pacemaker pocket was created using blunt dissection over the pectoralis muscle within the pectoralis fascia. Pocket was flushed with copious amounts of bacitracin saline wash and inspected for hemostasis. Pulse generator was then attached to the leads making sure the pins were in appropriate position, passed set screws and set screws were all tightened. Pulse generator was then placed in the pocket, making sure the lead was lying flat beneath the device. The incision was then closed in a 3-layer fashion with 2-0 Vicryl interrupted suture followed by 3-0 Vicryl interrupted suture, followed by 4-0 Monocryl running stitch and Dermabond was applied followed by Telfa and micropore dressing. EQUIPMENT: 1. Pulse generator is a Medtronic Vicky XT DR JORGE West [id number], serial number [id number]. 2. Tyrx pouch, reference [id number], lot number [id number], expiration 10/25/2020. 3. Right ventricular lead, Medtronic 5076-58 cm, serial number [id number]. INTRAOPERATIVE TESTING: Right ventricular lead: R waves 11.5 millivolts, impedance 874 ohms, threshold 0.4 volts at 0.4 milliseconds. FINAL MEASUREMENTS THROUGH THE DEVICE: Right ventricular lead: R waves 14.4 millivolts, impedance 988 ohms, threshold 0.7 volts at 0.4 milliseconds. FINAL PARAMETERS: VVIR 60/130. Right ventricular amplitude 3.5 volts, pulse width 0.4 milliseconds, sensitivity 1.2 millivolts. IMPRESSION: Successful single chamber rate responsive permanent pacemaker implantation along with peripheral venogram under fluoroscopic guidance secondary to tachybrady syndrome and permanent atrial fibrillation. PLAN: Monitor the patient overnight, 12-lead ECG, chest x-ray. She cannot lift the left elbow or left shoulder for 1 month. She cannot lift more than 10 pounds with the left arm for 2 weeks. She is to keep the dressing on and dry until her wound check at [facility] on 04/13 at 10:45 a.m. No IV heparin or systemic Lovenox. She can restart her Coumadin now and recommend a surgical bra as well as a sling. I attest to the content of the Intraoperative Record and any orders documented therein. Any exception s are noted below.
== END 2020-04-07 17:38 | disposition home or self-care (01) | DRG 243 ==
LOC: ED 14:20 → 2S 14:20 → OBSVTOIN 18:01 → 2S 20:16

== ENCOUNTER 2021-03-08 12:38 | Inpatient (IN) ==
--- NOTE | 2021-03-08 14:00 | XRay Report ---
XR chest 1V portable CLINICAL HISTORY: sob TECHNIQUE: Single frontal radiograph of the chest was obtained. Comparison: Comparison is made to chest 2 views 04/07/2020 FINDINGS: Postsurgical changes in the heart are unchanged. Intact median sternotomy wires are seen. The cardiom ediastinal silhouette is normal. The lungs are clear. No evidence of pleural effusion or pneumothorax . IMPRESSION: No acute chest disease. ACT 112: Negative or not required by law. Electronically signed by: Walter Acosta M.D. 03/08/2021 1:58 PM
[2021-03-08 14:11] LABS: Basophils # (auto) 0.03 K/uL (0-0.2); Basophils % (auto) 0.4 %; Eosinophils # (auto) 0.04 K/uL (0-0.5); Eosinophils % (auto) 0.5 %; Hematocrit (blood only) 42.6 % (37-47); Hemoglobin 14.3 g/dL (12.0-16.0); Immature Granulocytes # (auto) 0.01 K/uL (0.00-0.02); Immature Granulocytes % (auto) 0.1 %; Lymphocytes # (auto) 1.94 K/uL (1.2-3.4); Lymphocytes % (auto) 24.9 %; Mean Corpuscular Hemoglobin 28.7 pg (25-34); Mean Corpuscular Hgb Conc 33.6 g/dL (32-36); Mean Corpuscular Volume 85.4 fL (80-100); Mean Platelet Volume 11.8 fL (7.4-10.4); Monocytes # (auto) 0.72 K/uL (0.11-0.59); Monocytes % (auto) 9.3 %; Neutrophils # (auto) 5.04 K/uL (1.4-6.5); Neutrophils % (auto) 64.8 %; Platelet Count 216 K/uL (130-400); RDW Coefficient of Variation 14.8 % (11.5-14.5); RDW Standard Deviation 46.5 fL (36.4-46.3); Red Blood Count 4.99 M/uL (4.2-5.4); White Blood Count 7.78 K/uL (4.8-10.8)
[2021-03-08 14:33] LABS: Alanine Aminotransferase 34 (12-78); Albumin Level 3.8 gm/dl (3.4-5.0); Aspartate Aminotransferase 33 U/L (15-37); Blood Urea Nitrogen 15 mg/dl (7-18); Calcium 10.5 mg/dl (8.5-10.1); Carbon Dioxide 25 mmol/L (21-32); Chloride 98 mmol/L (98-107); Creatinine Clr Calc Pharmacy 40.3 ml/min; Est GFR (African American) 60.2 ml/min; Est GFR (Non-African American) 51.9 ml/min; Glucose 604 mg/dl (70-99); Magnesium 1.9 mg/dl (1.8-2.4); Potassium 4.3 mmol/L (3.5-5.1); Sodium 129 mmol/L (136-145)
[2021-03-08 14:43] LABS: Albumin Globulin Ratio 0.8 (0.9-2); Alkaline Phosphatase 85 U/L (45-117); Bilirubin,Total 0.9 mg/dl (0.2-1); NT Pro B Type Natriuretic Pept 537 pg/ml (0-900); Total Protein 8.8 gm/dl (6.4-8.2); Troponin I < 0.015 ng/ml (0-0.045)
--- NOTE | 2021-03-08 14:44 | Emergency Department Note ---
History of Present Illness General Chief complaint: Shortness of Breath/Dyspnea Stated complaint: COVID SYMPTOMS, SOB, HEADACHE, COUGH, HEART PROBLE Time Seen by Provider: 03/08/21 12:54 Source: patient Mode of arrival: ambulatory Limitations: no limitations History of Present Illness Provider complaint: dyspnea, weakness Maximum Pain Intensity: 7 This is 75-year-old female presents emergency department complaining of increased shortness of breath, fatigue, and nasal congestion. Patient states symptoms began on Thursday. She states she had been trying to avoid any sick contacts as she lives in a custodial community in many individuals she knows who also live there have been ill. Patient states she is vaccinated against influenza and coronavirus. Patient denies any recent change in medication. Patient states she contacted her family doctor to try and arrange to have an outpatient nasal swab performed as a precaution as she was concerned about her symptoms given she has a history of heart problems. Patient states she does have a history of atrial fibrillation, has had 2 prior valve replacements, and also has a pacemaker. Patient denies any leg swelling. Patient mitts to mild nasal congestion in addition to her cough. She denies any hemoptysis. She denies overt chest pain or abdominal pain. She states she has had subjective fevers and chills. Pt seen during a time of high acuity and national emergency pandemic while wearing PPE. Home Medications Medication Instructions Recorded Confirmed Type dicyclomine 20 mg tablet 20 mg PO QID PRN 05/27/18 03/08/21 History furosemide 20 mg tablet See Rx Instructions .ROUTE .COMPLEX 05/27/18 03/08/21 History nitroglycerin 0.4 mg sublingual 0.4 mg SUBLINGUAL DIRECTED PRN 05/27/18 03/08/21 History tablet (Nitrostat) warfarin 1 mg tablet 2 mg PO QAM 11/23/18 03/08/21 History sertraline 50 mg tablet 50 mg PO QAM 04/05/20 03/08/21 History digoxin 125 mcg (0.125 mg) tablet 125 mcg PO QAM 08/14/20 03/08/21 History metoprolol tartrate 25 mg tablet 50 mg PO BID 08/14/20 03/08/21 History aspirin 81 mg tablet 81 mg PO DAILY 03/08/21 03/08/21 History cholecalciferol (vitamin D3) 25 25 mcg PO QAM 03/08/21 03/08/21 History mcg (1,000 unit) tablet (Vitamin D3) Allergies Allergy/AdvReac Type Severity Reaction Status Date / Time lidocaine Allergy Intermediate Rash/hives Verified 03/08/21 15:27 [From Aspercreme (lidocaine)] with cream Sulfa (Sulfonamide Allergy Intermediate Rash, hives Verified 03/08/21 15:27 Antibiotics) latex Allergy Unknown Wheezing Verified 03/08/21 15:27 levothyroxine AdvReac Intermediate Tachycardia Verified 03/08/21 15:27 Past Med/Surg History Medical History (Updated 03/09/21 @ 14:16 by Lavonne Brandt, ) Anticoagulation goal of INR 2.5 to 3.5 Anxiety Atrial fibrillation follows with Dr. Almeida; h/o mult cardioversions; on warfarin Atrial flutter CAD (coronary artery disease) Rheumatic heart disease, on March 04, 2002 patient underwent aortic valve replacement and mitral valve replacement along with CABG x3 with a KIRK to the LAD, right internal mammary artery anastomosis as a free graft to the RCA and a single saphenous vein graft to the diagonal coronary artery and radiofrequency ablation of atrial fibrillation pathways at [facility]. 01/2011 admitted to [facility] secondary to symptomatically A. fib flutter which patient underwent DCCV. Sotalol was started but stopped due to intolerance secondary to nausea and bradycardia. July 2011 Tikosyn loading and successful repeat DCCV. 01/08/12 [place] [facility] [place] war[place]in. Noted to have single-vessel disease 70% mid LAD, 2 of the 3 bypasses were patent. There was obstruction of the SVG to diagonal however, the [place] diagonal had no significant obstruction. 12/24/12 hospitalized at [facility] and underwent redo of mechanical MVR By Dr. Manley. Postop day flutter noted. Tikosyn was discontinued and sent home on amiodarone and metoprolol. 05/3015 admitted to [facility] secondary to symptomatically flutter and tikosyn re-initiated. 11/2015 admitted to [facility] secondary to recurrent symptomatic paroxysmal atrial flutter with RVR, status post DCCV. CKD (chronic kidney disease), stage II pt denies. 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; tachy-lindy syndrome; [employer]; last checked 1 mo ago Paroxysmal atrial flutter Rheumatic heart disease Surgical History (Updated 03/08/21 @ 17:55 by GEOFFREY Caban) H/O esophagogastroduodenoscopy History of bilateral breast reduction surgery History of bilateral tubal ligation History of cardiac cath 2002 & ~2013 [facility] History of cataract surgery bilateral History of cholecystectomy History of colonoscopy History of partial thyroidectomy History of tonsillectomy Hx of appendectomy Hx of CABG x3 vessels (2002) at [facility] S/P AVR (aortic valve replacement) "Mechanical 2002 On 05/25/15 15:41 Mel Quevedo wrote "Mechanical 2002" S/P cholecystectomy S/P MVR (mitral valve replacement) "Mechanical 2002" plus a revision 2012 S/P NELLY (total abdominal hysterectomy) LSO Family History Mother Colorectal cancer Father FHx: bladder cancer Other No family history of adverse response to anesthesia Social History Smoking Status: Never smoker Second Hand Exposure: No; Hx Alcohol Use: Yes Hx Substance Use: No Preferred Language: Greek Communication Ability: Effective English Composition Teacher Required: No Beliefs That Will Affect Care: None Current Living Situation: Alone Other Information That Helps Us Care for You: No Feels Safe at Home: Yes Assistive Devices: Glasses Review of Systems A total of 10 systems reviewed and were otherwise negative All systems reviewed & are unremarkable except as noted in HPI & below Physical Exam Vital Signs Vital Signs - 24 hr 03/08/21 14:05 03/08/21 15:33 Respiratory Rate 20 Respiratory Effort / Characteristics Non-Labored Spontaneous Respiratory Pattern Regular Blood Pressure 156/66 H Blood Pressure Mean 96 Pulse Oximetry 98 98 Oxygen Delivery Method Room Air Room Air Oxygen Flow Rate 0 GENERAL: alert, well appearing, well nourished, no distress, non-toxic EYE EXAM: normal conjunctiva, PERRL and EOM's grossly intact OROPHARYNX: no exudate, no erythema, lips, buccal mucosa, and tongue normal and mucous membranes are moist NECK: supple, no nuchal rigidity, no adenopathy, non-tender LUNGS: Clear to auscultation. Normal chest wall mechanics, no w/r/r, no tachypnea or increased WOB HEART: no murmurs, S1 normal and S2 normal, well-healed sternotomy scar, pacemaker device noted left anterior superior chest wall ABDOMEN: abdomen soft, non-tender, normo-active bowel sounds, no masses, no andree ound or guarding. BACK: Back is symmetrical on inspection and there is no deformity, no midline tenderness, no CVA tenderness. SKIN: no rashes and no bruising UPPER EXTREMITIES: upper extremities are grossly normal. FROM, nml pulses b/l. LOWER EXTREMITIES: No pitting edema. FROM, nml pulses b/l. NEURO EXAM: Normal sensorium, cranial nerves II-XII grossly intact, normal speech, no gross weakness of arms, no gross weakness of legs. Gross sensation intact. Course Course 1455: Discussed with patient at bedside. Denies any history of diabetes or hyperglycemia. States she does not check her blood sugar daily. No recent use of steroids. 1535: Discussed with Kole Patterson hospitalist team. Administered Medications Acetaminophen (Acetaminophen 325 Mg Tab) 650 mg PO Q4H PRN PRN Reason: pain/fever Stop: 04/07/21 18:10 Last Admin: 03/08/21 22:48 Dose: 650 mg Documented by: [id number] Aspirin (Aspirin 81 Mg Ectab) 81 mg PO DAILY ARACELI Stop: 04/08/21 08:59 Last Admin: 03/09/21 09:21 Dose: 81 mg Documented by: [id number] Digoxin (Digoxin 0.125 Mg Tab) 0.125 mg PO QAM ARACELI Stop: 04/08/21 08:59 Last Admin: 03/09/21 09:21 Dose: 0.125 mg Documented by: [id number] Doxycycline Hyclate (Doxycycline Hyclate 100 Mg Cap) 100 mg PO BID ARACELI Stop: 03/16/21 08:59 Last Admin: 03/09/21 09:52 Dose: 100 mg Documented by: [id number] Furosemide (Furosemide 20 Mg Tab) 40 mg PO Q2D ARACELI Stop: 04/08/21 08:59 Last Admin: 03/09/21 09:22 Dose: 40 mg Documented by: [id number] Insulin Aspart (Insulin Aspart Per Unit) 0 units SC ACHS ARACELI Stop: 04/07/21 16:29 Last Admin: 03/09/21 12:33 Dose: 5 units Documented by: [id number] Cosigned by: [id number] Admin: 03/09/21 08:39 Dose: 4 units Documented by: [id number] Cosigned by: [id number] Admin: 03/08/21 22:35 Dose: Not Given Documented by: [id number] Admin: 03/08/21 18:43 Dose: 4 units Documented by: [id number] Cosigned by: [id number] Metoprolol Tartrate (Metoprolol Tartrate 50 Mg Tab) 50 mg PO BID [facility] Stop: 04/07/21 20:59 Last Admin: 03/09/21 09:22 Dose: 50 mg Documented by: [id number] Admin: 03/08/21 21:00 Dose: 50 mg Documented by: [id number] Sertraline HCl (Sertraline Hcl 50 Mg Tablet) 50 mg PO QAM [facility] Stop: 04/08/21 08:59 Last Admin: 03/09/21 09:23 Dose: 50 mg Documented by: [id number] Discontinued Medications Insulin Human Regular 250 (units/ Sodium Chloride) 250 mls @ 1.7 mls/hr IV .Q24H [facility]; Protocol Stop: 04/07/21 15:14 Last Titration: 03/09/21 13:18 Dose: 0 units/hr, 0 mls/hr Documented by: [id number] Cosigned by: [id number] Titration: 03/09/21 11:05 Dose: 1.7 units/hr, 1.7 mls/hr Documented by: [id number] Cosigned by: [id number] Titration: 03/09/21 09:34 Dose: 2.8 units/hr, 2.8 mls/hr Documented by: [id number] Cosigned by: [id number] Titration: 03/09/21 08:36 Dose: 2 units/hr, 2 mls/hr Documented by: [id number] Cosigned by: [id number] Titration: 03/09/21 03:50 Dose: 1.7 units/hr, 1.7 mls/hr Documented by: [id number] Cosigned by: [id number] Titration: 03/08/21 22:29 Dose: 1.7 units/hr, 1.7 mls/hr Documented by: [id number] Cosigned by: [id number] Titration: 03/08/21 21:51 Dose: 0 units/hr, 0 mls/hr Documented by: [id number] Cosigned by: [id number] Titration: 03/08/21 20:09 Dose: 2.8 units/hr, 2.8 mls/hr Documented by: [id number] Cosigned by: [id number] Titration: 03/08/21 18:41 Dose: 2.8 units/hr, 2.8 mls/hr Documented by: [id number] Cosigned by: [id number] Titration: 03/08/21 17:52 Dose: 2.3 units/hr, 2.3 mls/hr Documented by: [id number] Cosigned by: [id number] Titration: 03/08/21 16:33 Dose: 1.9 units/hr, 1.9 mls/hr Documented by: [id number] Cosigned by: [id number] Admin: 03/08/21 15:34 Dose: 2.4 units/hr, 2.4 mls/hr Documented by: [id number] Cosigned by: [id number] Insulin Glargine (Insulin Glargine Solostar 100 Units/Ml 3 Ml Pen) 18 units SC ONE ONE Stop: 03/08/21 18:46 Last Admin: 03/08/21 20:18 Dose: 18 units Documented by: [id number] Cosigned by: [id number] Insulin Glargine (Insulin Glargine Solostar 100 Units/Ml 3 Ml Pen) 15 units SC NOW STA Stop: 03/09/21 09:57 Last Admin: 03/09/21 11:05 Dose: 15 units Documented by: [id number] Cosigned by: [id number] Insulin Human Regular (Novolin-R Bolus From Bag) 2.5 units IV ONE ONE Stop: 03/08/21 15:16 Last Admin: 03/08/21 15:36 Dose: 2.5 units Documented by: [id number] Cosigned by: [id number] Miscellaneous (Stat Iv Infusion Titration Per Protocol) 1 ea N/A NOW STA Stop: 03/08/21 14:59 Last Admin: 03/08/21 17:28 Dose: Not Given Documented by: [id number] Miscellaneous (Insulin Protocol Goal Range ) 1 ea N/A ONE ONE Stop: 03/08/21 15:10 Last Admin: 03/08/21 17:28 Dose: Not Given Documented by: [id number] Miscellaneous (Severe Stress Level ) 1 ea N/A ONE ONE Stop: 03/08/21 15:10 Last Admin: 03/08/21 17:29 Dose: Not Given Documented by: [id number] Potassium Chloride (Potassium Chloride Crtab 20 Meq Tabcr) 40 meq PO NOW STA Stop: 03/09/21 09:55 Last Admin: 03/09/21 10:35 Dose: 40 meq Documented by: [id number] Potassium Chloride (Potassium Chloride Pwd 20 Meq Pack) 40 meq PO NOW ONE Stop: 03/09/21 11:31 Last Admin: 03/09/21 11:48 Dose: 40 meq Documented by: [id number] Critical Care Time Critical Care Time: Yes Total Critical Care Time: 35 Critical care of 35 min performed to assess and manage high likelihood of life- threatening hyperglycemia, involving labs and imaging performed with assessment to evaluate respiratory distress diagnosis with frequent reassessment. This time includes bedside time, treatment discussions with patient/family/consultants, documentation time and excludes procedure time. Medical Decision Making Differential Diagnosis Viral syndrome, strep pharyngitis, tonsillitis, mononucleosis, retropharyngeal abscess, peritonsillar abscess, otitis media, sinusitis, bronchitis, pneumonia, as well as other pathologies. Medical Records Attestation: I reviewed the patient's medical records. Home Medications Current Medication List: was personally reviewed by me Laboratory Data Attestation: I reviewed the patient's lab results. Result diagrams: 03/09/21 07:28 03/09/21 07:28 Lab Results 03/08/21 03/08/21 03/08/21 Range/Units 13:58 13:58 13:58 WBC 7.78 (4.8-10.8) K/uL RBC 4.99 (4.2-5.4) M/uL Hgb 14.3 (12.0-16.0) g/dL Hct 42.6 (37-47) % MCV 85.4 (80-100) fL MCH 28.7 (25-34) pg MCHC 33.6 (32-36) g/dL RDW Std Deviation 46.5 H (36.4-46.3) fL RDW Coeff of Tammi 14.8 H (11.5-14.5) % Plt Count 216 (130-400) K/uL MPV 11.8 H (7.4-10.4) fL Immature Gran % (Auto) 0.1 % Neut % (Auto) 64.8 % Lymph % (Auto) 24.9 % [place] % (Auto) 9.3 % Eos % (Auto) 0.5 % Baso % (Auto) 0.4 % Neut # (Auto) 5.04 (1.4-6.5) K/uL Lymph # (Auto) 1.94 (1.2-3.4) K/uL [place] # (Auto) 0.72 H (0.11-0.59) K/uL Eos # (Auto) 0.04 (0-0.5) K/uL Baso # (Auto) 0.03 (0-0.2) K/uL Immature Gran # (Auto) 0.01 (0.00-0.02) K/uL PT (9.0-12.0) Seconds INR (0.9-1.1) Sodium 129 L (136-145) mmol/L Potassium 4.3 (3.5-5.1) mmol/L Chloride 98 (98-107) mmol/L Carbon Dioxide 25 (21-32) mmol/L Anion Gap 6.0 (3-11) BUN 15 (7-18) mg/dl Creatinine 1.05 (0.6-1.2) mg/dl Est Cr Clr Drug Dosing 40.3 ml/min Est GFR ( Amer) 60.2 ml/min Est GFR (Non-Af Amer) 51.9 ml/min BUN/Creatinine Ratio 14.0 (10-20) Glucose 604 H* (70-99) mg/dl Estimat Average Glucose mg/dl Hemoglobin A1c (4.5-5.6) % Calcium 10.5 H (8.5-10.1) mg/dl Phosphorus (2.5-4.9) mg/dl Magnesium 1.9 (1.8-2.4) mg/dl Total Bilirubin 0.9 (0.2-1) mg/dl AST 33 (15-37) U/L ALT 34 (12-78) Alkaline Phosphatase 85 (45-117) U/L Troponin I < 0.015 (0-0.045) ng/ml NT-Pro-B Natriuret Pep 537 (0-900) pg/ml Total Protein 8.8 H (6.4-8.2) gm/dl Albumin 3.8 (3.4-5.0) gm/dl Globulin 5.0 H (2.5-4.0) gm/dl Albumin/Globulin Ratio 0.8 L (0.9-2) Beta-Hydroxybutyric Acd 1.28 (0.2-2.81) mg/dl TSH 2.880 (0.300-4.500) uIu/ml SARS-CoV-2 (PCR) NEGATIVE (Negative) Influenza Type A (PCR) Negative (Neg) Influenza Type B (PCR) Negative (Neg) RSV (RT-PCR) Negative (Neg) 03/08/21 03/08/21 03/08/21 Range/Units 13:58 13:58 13:58 WBC (4.8-10.8) K/uL RBC (4.2-5.4) M/uL Hgb (12.0-16.0) g/dL Hct (37-47) % MCV (80-100) fL MCH (25-34) pg MCHC (32-36) g/dL RDW Std Deviation (36.4-46.3) fL RDW Coeff of Tammi (11.5-14.5) % Plt Count (130-400) K/uL MPV (7.4-10.4) fL Immature Gran % (Auto) % Neut % (Auto) % Lymph % (Auto) % [place] % (Auto) % Eos % (Auto) % Baso % (Auto) % Neut # (Auto) (1.4-6.5) K/uL Lymph # (Auto) (1.2-3.4) K/uL [place] # (Auto) (0.11-0.59) K/uL Eos # (Auto) (0-0.5) K/uL Baso # (Auto) (0-0.2) K/uL Immature Gran # (Auto) (0.00-0.02) K/uL PT 17.7 H (9.0-12.0) Seconds INR 1.8 H (0.9-1.1) Sodium (136-145) mmol/L Potassium (3.5-5.1) mmol/L Chloride (98-107) mmol/L Carbon Dioxide (21-32) mmol/L Anion Gap (3-11) BUN (7-18) mg/dl Creatinine (0.6-1.2) mg/dl Est Cr Clr Drug Dosing ml/min Est GFR ( Amer) ml/min Est GFR (Non-Af Amer) ml/min BUN/Creatinine Ratio (10-20) Glucose (70-99) mg/dl Estimat Average Glucose 220 mg/dl Hemoglobin A1c 9.3 H (4.5-5.6) % Calcium (8.5-10.1) mg/dl Phosphorus 2.5 (2.5-4.9) mg/dl Magnesium (1.8-2.4) mg/dl Total Bilirubin (0.2-1) mg/dl AST (15-37) U/L ALT (12-78) Alkaline Phosphatase (45-117) U/L Troponin I (0-0.045) ng/ml NT-Pro-B Natriuret Pep (0-900) pg/ml Total Protein (6.4-8.2) gm/dl Albumin (3.4-5.0) gm/dl Globulin (2.5-4.0) gm/dl Albumin/Globulin Ratio (0.9-2) Beta-Hydroxybutyric Acd (0.2-2.81) mg/dl TSH (0.300-4.500) uIu/ml SARS-CoV-2 (PCR) (Negative) Influenza Type A (PCR) (Neg) Influenza Type B (PCR) (Neg) RSV (RT-PCR) (Neg) Imaging Data Radiologist's Impression: Chest X-Ray 03/08/21 13:38 XR chest 1V portable CLINICAL HISTORY: sob TECHNIQUE: Single frontal radiograph of the chest was obtained. Comparison: Comparison is made to chest 2 views 04/07/2020 FINDINGS: Postsurgical changes in the heart are unchanged. Intact median sternotomy wires are seen. The cardiomediastinal silhouette is normal. The lungs are clear. No evidence of pleural effusion or pneumothorax. IMPRESSION: No acute chest disease. ACT 112: Negative or not required by law. Electronically signed by: Walter Acosta M.D. 03/08/2021 1:58 PM ECG Data Attestation: I personally reviewed and interpreted this ECG as follows: Indication: + SOB/dyspnea Rate (beats per minute): 79 Rhythm: + other ECG Intervals/blocks: + IVCD and + Prolonged QT ECG [place]: + Left axis deviation ECG ST segments: + Nonspecific ST abnormalities Additional Comments: paced MDM Narrative This is an elderly female who presents due to concern for dyspnea, fatigue, and possible covid or influenza. Patient found to have significant hyperglycemia, no known dx of DM. No evidence of DKA. COVID and influenza negative. No evidence of pna or pulm edema on CXR despite patient's significant cardiac history. Patient afebrile and hemodynamically stable throughout. Discussed all results with patient an need for additional inpatient mgmt given severity of hyperglycemia and other comorbidities. Patient started on insulin drip and case discussed with hospitalist for additional evaluation and mgmt. INR found to be slightly subtherapeutic, I have a low suspicion for occult PE contributing to symptoms at this time. An order was placed for continuous cardiac monitoring. The monitor shows a rate of _78__ with __paced_ rhythm. Impression & Plan Dyspnea, Acute hyperglycemia, Fatigue, Subtherapeutic anticoagulation Discharge Plan Visit Data Chief Complaint: Shortness of Breath/Dyspnea Stated Complaint: COVID SYMPTOMS, SOB, HEADACHE, COUGH, HEART PROBLE Discharge Problem: Dyspnea, Acute hyperglycemia, Fatigue, Subtherapeutic anticoagulation Patient Disposition: Admitted As Inpatient Discharge Instructions Interventions: ED Discharge Assessment Last Done: 03/09/21 00:15 Discharge Problem: Dyspnea Qualifiers: Dyspnea type: shortness of breath Qualified Code(s): R06.02 - Shortness of breath Fatigue Qualifiers: Fatigue type: unspecified Qualified Code(s): R53.83 - Other fatigue
[2021-03-08 14:54] LABS: Influenza A virus by PCR Negative (Neg); Influenza B virus by PCR Negative (Neg); RSV by PCR Negative (Neg); SARS CoV2 RNA(COVID-19) InHosp NEGATIVE (Negative)
[2021-03-08] MEDS ORDERED: GLUCOSE 10 TABS/TUBE PO PRN (14:58)
[2021-03-08] MEDS ORDERED: STAT IV Infusion **Titration per Protocol STA ×2 (14:58→15:09)
[2021-03-08] MEDS ORDERED: HHS GOAL RANGE 250-350 mg/dl ONE (14:58)
[2021-03-08] MEDS ORDERED: GLUCOSE 40% GEL 15 GM TUBE PO PRN (14:58)
[2021-03-08] MEDS ORDERED: GLUCAGON FOR INJ 1 MG VIAL SQ PRN (14:58)
[2021-03-08] MEDS ORDERED: DEXTROSE 50% 50 ML SYRINGE IV PRN (14:58)
[2021-03-08] MEDS ORDERED: CARBOHYDRATES FOR HYPOGLYCEMIA PO PRN (14:58)
[2021-03-08] MEDS ORDERED: INSULIN REGULAR 250 UNITS in SODIUM CHLORIDE 0.9% 247.5 ML IV SCH ×2 (15:00→15:15)
[2021-03-08 15:02] LABS: Beta-Hydroxybutyrate 1.28 mg/dl (0.2-2.81)
[2021-03-08] MEDS ORDERED: INSULIN PROTOCOL GOAL RANGE ONE (15:09)
[2021-03-08] MEDS ORDERED: SEVERE STRESS LEVEL ONE (15:09)
[2021-03-08] MEDS ORDERED: NovoLIN-R BOLUS FROM BAG IV ONE (15:15)
--- NOTE | 2021-03-08 16:20 | Electrocardiogram Report ---
Test Reason : Blood Pressure : / mmHG Vent. Rate : 079 BPM Atrial Rate : 300 BPM P-R Int : 000 ms QRS Dur : 168 ms QT Int : 446 ms P-R-T Axes : 209 -27 103 degrees QTc Int : 511 ms Ventricular-paced rhythm Abnormal ECG When compared with ECG of 07-APR-2020 07:32, Electronic ventricular pacemaker has replaced Sinus rhythm Confirmed by Efrain Palacios ([id number]) on 03/08/2021 4:20:48 PM Referred By: REFERRED SELF Confirmed By:Efrain Palacios
[2021-03-08 17:06] LABS: INR 1.8 (0.9-1.1); Prothrombin Time 17.7 Seconds (9.0-12.0)
--- NOTE | 2021-03-08 18:09 | History & Physical Report ---
Date of Service March 08, 2021 Assessment & Plan (1) Diabetes mellitus, new onset: Plan: -Admit to [facility] with telemetry -Patient presenting from home with reports of generally not feeling well. Reports polydipsia and polyuria x 2 weeks. -in the ED, found to have glucose 608. No prior history of diabetes -Hgb A1c 5.6 in 2015, glucose 150 on outpatient labs 12/2020 -No signs of DKA -Started on insulin drip in the ED, continue with -Check A1c -Glycemic pharmacy consult (2) Viral URI: Plan: -Patient reporting sore throat, nasal congestion, cough -CXR clear. Saturating well on room air. -COVID-19, influenza, RSV testing negative -Continue supportive care (3) Atrial fibrillation: (4) Atrial flutter: Plan: -Rate controlled on digoxin and metoprolol -Anticoagulated on Coumadin, INR 1.8 (5) Tachycardia-bradycardia syndrome: (6) Pacemaker: Plan: -No acute issues (7) CAD (coronary artery disease): Plan: -Appears stable, no reports of chest pain -Continue ASA, beta-natacha (8) S/P MVR (mitral valve replacement): (9) S/P AVR (aortic valve replacement): Plan: -Mechanical -On Coumadin, INR 1.8 (10) Liver cirrhosis secondary to BROWNE: Plan: -Appears compensated (11) DVT prophylaxis: Plan: -On Coumadin History of Present Illness Chief Complaint: Generally not feeling well Primary Care Provider: Dr. Peterson 75-year-old female with PMH atrial fibrillation and atrial flutter anticoagulated on Coumadin, tachybradycardia syndrome s/p pacemaker, CAD s/p CABG, chronic diastolic CHF, history of mechanical aortic and mitral valve replacement, and other problems to below who presents the ED with a complaint of generally not feeling well. Patient reports that earlier in the week, she developed some nausea and diarrhea. Reports a history of IBS and diarrhea is a somewhat chronic problem for her. She describes it is generally not feeling well for the remainder of the week. She felt lightheaded and had some blurred vision at times. She also developed a sore throat with nasal congestion and cough. Was also running a low-grade fever of around 100. Also has some mild exertional shortness of breath. Patient notes increased thirst and urination for the past couple of weeks. No abdominal pain or vomiting. No chest pain or palpitations. Denies dysuria. In the ED, patient is found to have blood glucose 604, no prior history of diabetes. CXR clear, COVID-19 and influenza testing negative. Hemodynamically stable. Patient was started on IV insulin drip. Allergies Allergy/AdvReac Type Severity Reaction Status Date / Time lidocaine Allergy Intermediate Rash/hives Verified 03/08/21 15:27 [From Aspercreme (lidocaine)] with cream Sulfa (Sulfonamide Allergy Intermediate Rash, hives Verified 03/08/21 15:27 Antibiotics) latex Allergy Unknown Wheezing Verified 03/08/21 15:27 levothyroxine AdvReac Intermediate Tachycardia Verified 03/08/21 15:27 Home Medications Medication Instructions Recorded Confirmed Type dicyclomine 20 mg tablet 20 mg PO QID PRN 05/27/18 03/08/21 History furosemide 20 mg tablet See Rx Instructions .ROUTE .COMPLEX 05/27/18 03/08/21 History nitroglycerin 0.4 mg sublingual 0.4 mg SUBLINGUAL DIRECTED PRN 05/27/18 03/08/21 History tablet (Nitrostat) warfarin 1 mg tablet 2 mg PO QAM 11/23/18 03/08/21 History sertraline 50 mg tablet 50 mg PO QAM 04/05/20 03/08/21 History digoxin 125 mcg (0.125 mg) tablet 125 mcg PO QAM 08/14/20 03/08/21 History metoprolol tartrate 25 mg tablet 50 mg PO BID 08/14/20 03/08/21 History aspirin 81 mg tablet 81 mg PO DAILY 03/08/21 03/08/21 History cholecalciferol (vitamin D3) 25 25 mcg PO QAM 03/08/21 03/08/21 History mcg (1,000 unit) tablet (Vitamin D3) Past Med/Surg History Medical History (Updated 03/09/21 @ 14:16 by Lavonne Brandt DO) Anticoagulation goal of INR 2.5 to 3.5 Anxiety Atrial fibrillation follows with Dr. Almeida; h/o mult cardioversions; on warfarin Atrial flutter CAD (coronary artery disease) Rheumatic heart disease, on March 04, 2002 patient underwent aortic valve replacement and mitral valve replacement along with CABG x3 with a KIRK to the LAD, right internal mammary artery anastomosis as a free graft to the RCA and a single saphenous vein graft to the diagonal coronary artery and radiofrequency ablation of atrial fibrillation pathways at [facility]. 01/2011 admitted to [facility] secondary to symptomatically A. fib flutter which patient underwent DCCV. Sotalol was started but stopped due to intolerance secondary to nausea and bradycardia. July 2011 Tikosyn loading and successful repeat DCCV. 01/08/12 underwent cardiac catheterization at [facility] and remained on warfarin. Noted to have single-vessel disease 70% mid LAD, 2 of the 3 bypasses were patent. There was obstruction of the SVG to diagonal however, the [place] di agonal had no significant obstruction. 12/24/12 hospitalized at [facility] and underwent redo of mechanical MVR By Dr. Manley. Postop day flutter noted. Tikosyn was discontinued and sent home on amiodarone and metoprolol. 05/3015 admitted to [facility] secondary to symptomatically flutter and tikosyn re-initiated. 11/2015 admitted to [facility] secondary to recurrent symptomatic paroxysmal atrial flutter with RVR, status post DCCV. CKD (chronic kidney disease), stage II pt denies. 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; tachy-lindy syndrome; [employer]; last checked 1 mo ago Paroxysmal atrial flutter Rheumatic heart disease Surgical History (Updated 03/08/21 @ 17:55 by GEOFFREY Caban) H/O esophagogastroduodenoscopy History of bilateral breast reduction surgery History of bilateral tubal ligation History of cardiac cath 2002 & ~2013 [facility] History of cataract surgery bilateral History of cholecystectomy History of colonoscopy History of partial thyroidectomy History of tonsillectomy Hx of appendectomy Hx of CABG x3 vessels (2002) at [facility] S/P AVR (aortic valve replacement) "Mechanical 2002 On 05/25/15 15:41 Mel Quevedo wrote "Mechanical 2002" S/P cholecystectomy S/P MVR (mitral valve replacement) "Mechanical 2002" plus a revision 2012 S/P NELLY (total abdominal hysterectomy) LSO Family History Mother Colorectal cancer Father FHx: bladder cancer Other No family history of adverse response to anesthesia Social History Smoking Status: Never smoker Second Hand Exposure: No; Hx Alcohol Use: Yes Hx Substance Use: No Preferred Language: Telugu Communication Ability: Effective Motorcycle Maker Required: No Beliefs That Will Affect Care: None Current Living Situation: Alone Other Information That Helps Us Care for You: No Feels Safe at Home: Yes Assistive Devices: Glasses Review of Systems Review of Systems: ROS per HPI, all other systems reviewed and negative Physical Exam Constitutional: WD/WN, vitals as above Eyes: PERRL, conjunctivae normal, anicteric sclerae ENMT: external ear and nose normal, oropharynx normal Respiratory: normal respiratory effort, lungs clear to auscultation Cardiovascular: Rate/Rhythm: regular rate and regular rhythm Heart Sounds: + click Vessels: normal peripheral pulses Extremities: no edema Gastrointestinal (Abdomen): normal bowel sounds, soft, nontender, no hepatosplenomegaly Musculoskeletal: no cyanosis or clubbing, extremities motor strength 5/5 Skin: no rashes, warm and dry Neurologic: PERRL, EOMI, accommodation nl, no face palsy, no dysarthria Psychiatric: A+Ox3, euthymic affect Results & Data Results & Data ([facility]) Vital Signs (Past 12 Hours) Vital Signs Temp Pulse Resp BP Pulse Ox 03/08/21 17:00 73 20 98 03/08/21 16:00 68 18 98 03/08/21 15:33 20 156/66 H 98 03/08/21 14:05 98 03/08/21 14:00 76 20 147/60 H 97 03/08/21 12:39 36.5 C 88 20 140/70 98 Laboratory Results Short CBC 03/08/21 Range/Units 13:58 WBC 7.78 (4.8-10.8) K/uL Hgb 14.3 (12.0-16.0) g/dL Hct 42.6 (37-47) % Plt Count 216 (130-400) K/uL BMP 03/08/21 13:58 Sodium 129 L Potassium 4.3 Chloride 98 Carbon Dioxide 25 BUN 15 Creatinine 1.05 Glucose 604 H* Calcium 10.5 H Cardiac Enzymes 03/08/21 Range/Units 13:58 Troponin I < 0.015 (0-0.045) ng/ml Liver Function 03/08/21 Range/Units 13:58 Total Bilirubin 0.9 (0.2-1) mg/dl AST 33 (15-37) U/L ALT 34 (12-78) Alkaline Phosphatase 85 (45-117) U/L Albumin 3.8 (3.4-5.0) gm/dl Diagnostic Findings Chest X-Ray 03/08/21 13:38 XR chest 1V portable CLINICAL HISTORY: sob TECHNIQUE: Single frontal radiograph of the chest was obtained. Comparison: Comparison is made to chest 2 views 04/07/2020 FINDINGS: Postsurgical changes in the heart are unchanged. Intact median sternotomy wires are seen. The cardiomediastinal silhouette is normal. The lungs are clear. No evidence of pleural effusion or pneumothorax. IMPRESSION: No acute chest disease. ACT 112: Negative or not required by law. Electronically signed by: Walter Acosta M.D. 03/08/2021 1:58 PM Code Status & VTE Plan Code Status Patient is a DNR as per my discussion with her. VTE Prophylaxis Plan VTE Prophylaxis will be ordered: No Supervising Physician Co-Signing Physician Notes Attending Addendum: delayed entry date of service noted above care coordinated with GEOFFREY Perla please refer to her notes for full details, I agree with her notes patient seen and examined, records reviewed by myself as well on exam, patient seen resting in bed, comfortable states he feels improved compared to admission reports sore throat, nasal congestion, rhinorhea, some cough, occ productive no chest pain, dyspnea, palpitations, dizziness no other symptoms VS noted and reviewed oriented x 3 , not in distress, speaks in sentences with no effort nor accessory muscle use pharynx: mild erythema, no tonsillar enlargement/exudate normal rate, regular rhythm, no murmurs clear breath sounds bilaterally non distended, soft, nontender no bipedal edema, erythema, warmth no neuro deficits WBC 7.7 Hg 14.3 Crea 0.78 ASSESSMENT AND PLAN NEW ONSET DM HYPERGLYCEMIA not in DKA continue Insulin drip DM educator [facility] AORTIC VALVE continue coumadin other diagnoses and plan of care as per GEOFFREY Perla's notes Daniel Olmstead MD (1) CAD (coronary artery disease) Associated angina: without angina Coronary Disease-Associated Artery/Lesion type: [place] artery [place] vs. transplanted heart: [place] heart Qualified Code(s): I25.10 - Atherosclerotic heart disease of [place] coronary artery without angina pectoris (2) Atrial flutter Atrial flutter type: atypical Qualified Code(s): I48.4 - Atypical atrial flutter
[2021-03-08] MEDS ORDERED: PHARMACY GLYCEMIC MGMT CONSULT PRN (18:11)
[2021-03-08] MEDS ORDERED: FUROSEMIDE 20 MG TAB PO PRN (18:11)
[2021-03-08] MEDS ORDERED: ACETAMINOPHEN 325 MG TAB PO PRN (18:11)
[2021-03-08] MEDS: INSULIN ASPART PER UNIT SC SCH ×2 (18:43→22:35)
[2021-03-08] MEDS ORDERED: INSULIN GLARGINE SOLOSTAR 100 UNITS/ML 3 ML PEN SC ONE (18:45)
--- NOTE | 2021-03-08 19:39 | Pharmacy Report ---
Pharmacy Glycemic Short Note 2 - Date of Service March 08, 2021 - Glycemic Short BSG Results (Last 24 hours): 03/08/21 03/08/21 03/08/21 13:58 16:30 17:45 Glucose 604 H* POC Glucose 365 H* 320 H* 03/08/21 18:38 Glucose POC Glucose 274 H OUTPATIENT ANTIDIABETIC REGIMEN: * n/a - new diagnosis * HbA1c pending ASSESSMENT: * LYUDMILA is a 75 year old female who presented to ED today with increased shortness of breath, fatigue, and nasal congestion. * Patient also reports ~2 weeks of polydipsia and polyuria, BSG of 604 mg/dL - new diagnosis of T2DM * Insulin infusion initiated for significant hyperglycemia * BSGs have trended down nicely since time of insulin infusion initiation, 274 mg/dL most recently * Labs largely normal, no over DKA/HHS * Will give one-time dose of Lantus to assist in insulin drip transition PLAN FOR INPATIENT GLYCEMIC CONTROL: * Hold outpatient oral diabetes medications * Insulin infusion, goal range 110-180 mg/dL * Basal insulin * Lantus 18 units SC x 1 (~80% of full-weight based stress of 2, 0.3 unit/kg) * Bolus insulin * NovoLog per scale ACHS per insulin calculator PLAN FOR DISCHARGE: * tbd - pending HbA1c
[2021-03-08] MEDS: METOPROLOL TARTRATE 50 MG TAB PO SCH (21:00)
[2021-03-09 07:43] LABS: Hematocrit (blood only) 42.9 % (37-47); Hemoglobin 14.6 g/dL (12.0-16.0); Mean Corpuscular Hemoglobin 28.9 pg (25-34); Mean Platelet Volume 11.3 fL (7.4-10.4); Platelet Count 234 K/uL (130-400); RDW Standard Deviation 46.3 fL (36.4-46.3); Red Blood Count 5.05 M/uL (4.2-5.4); White Blood Count 10.15 K/uL (4.8-10.8)
[2021-03-09 07:46] LABS: Estimated Average Glucose 220 mg/dl; Hemoglobin A1C 9.3 % (4.5-5.6)
[2021-03-09 08:06] LABS: BUN Creatinine Ratio 16.3 (10-20); Calcium 9.9 mg/dl (8.5-10.1); Est GFR (African American) 86.2 ml/min; Est GFR (Non-African American) 74.4 ml/min; Potassium 3.4 mmol/L (3.5-5.1)
[2021-03-09] MEDS: INSULIN ASPART PER UNIT SC SCH ×4 (08:39→20:46)
[2021-03-09] MEDS: ASPIRIN 81 MG ECTAB PO SCH (09:21)
[2021-03-09] MEDS: DIGOXIN 0.125 MG TAB PO SCH (09:21)
[2021-03-09] MEDS: FUROSEMIDE 20 MG TAB PO SCH (09:22)
[2021-03-09] MEDS: METOPROLOL TARTRATE 50 MG TAB PO SCH ×2 (09:22→20:46)
[2021-03-09] MEDS: SERTRALINE HCL 50 MG TABLET PO SCH (09:23)
[2021-03-09] MEDS: DOXYCYCLINE HYCLATE 100 MG CAP PO SCH ×2 (09:52→20:46)
[2021-03-09] MEDS ORDERED: POTASSIUM CHLORIDE CRTAB 20 MEQ TABCR PO STA (09:54)
[2021-03-09] MEDS ORDERED: INSULIN GLARGINE SOLOSTAR 100 UNITS/ML 3 ML PEN SC STA (09:56)
[2021-03-09] MEDS ORDERED: POTASSIUM CHLORIDE PWD 20 MEQ PACK PO ONE (11:30)
--- NOTE | 2021-03-09 13:53 | Pharmacy Report ---
Pharmacy Glycemic Short Note 2 - Date of Service March 09, 2021 - Glycemic Short BSG Results (Last 24 hours): 03/08/21 03/08/21 03/08/21 13:58 16:30 17:45 Glucose 604 H* POC Glucose 365 H* 320 H* 03/08/21 03/08/21 03/08/21 18:38 19:58 21:47 Glucose POC Glucose 274 H 262 H 138 H 03/08/21 03/09/21 03/09/21 23:34 00:32 01:36 Glucose POC Glucose 141 H 134 H 134 H 03/09/21 03/09/21 03/09/21 02:33 03:34 04:36 Glucose POC Glucose 131 H 145 H 151 H 03/09/21 03/09/21 03/09/21 05:30 06:31 07:28 Glucose 146 H POC Glucose 142 H 152 H 03/09/21 03/09/21 03/09/21 08:30 09:28 10:34 Glucose POC Glucose 221 H 305 H* 188 H 03/09/21 03/09/21 12:13 13:15 Glucose POC Glucose 173 H 198 H OUTPATIENT ANTIDIABETIC REGIMEN: * n/a - new diagnosis * HbA1c pending ASSESSMENT: 03/09: * Pt was on an insulin infusion starting yesterday evening and continued to early afternoon today. The infusion rate averaged around 2 units/hr for over 12 hrs. In addition, she received 18 units of Lantus and 4 units of Novolog bolus to cover carbs. * Estimate patient needs around 60 units of insulin per day. * Lantus 15 units ordered this AM and insulin infusion discontinued. Novolog CF/CR ordered for dinner time using wt based stress 3. 03/08/21: * BM is a 75 year old female who presented to ED today with increased shortness of breath, fatigue, and nasal congestion. * Patient also reports ~2 weeks of polydipsia and polyuria, BSG of 604 mg/dL - new diagnosis of T2DM * Insulin infusion initiated for significant hyperglycemia * BSGs have trended down nicely since time of insulin infusion initiation, 274 mg/dL most recently * Labs largely normal, no over DKA/HHS * Will give one-time dose of Lantus to assist in insulin drip transition PLAN FOR INPATIENT GLYCEMIC CONTROL: * Basal insulin * Lantus 15 units SC x 1 this AM and 10-15 units HS scale based on BSG * Bolus insulin * NovoLog ACHS or q6h if NPO * Correction factor: 25 mg/dl/unit * Carb ratio: 1 unit per 8 gm of CHO consumed PLAN FOR DISCHARGE: * tbd
--- NOTE | 2021-03-09 14:37 | Hospitalist Progress Note ---
Date of Service March 09, 2021 Assessment & Plan (1) Diabetes mellitus, new onset: Plan: per GEOFFREY Perla's with addendum: -Ad[facility] -Patient presenting from home with reports of generally not feeling well. Reports polydipsia and polyuria x 2 weeks. -in the ED, found to have glucose 608. No prior history of diabetes -Hgb A1c 5.6 in 2015, glucose 150 on outpatient labs 12/2020 -No signs of DKA -Started on insulin drip in the ED, continue with -Check A1c -Glycemic pharmacy consult 03/09/21 improving A1c 9 transitioned to Lantus and ISS monitor closely DM educator consulted (2) Viral URI: Plan: -Patient reporting sore throat, nasal congestion, cough -CXR clear. Saturating well on room air. -COVID-19, influenza, RSV testing negative -Continue supportive care 03/09/21 will add empiric Doxycycline monitor (3) Atrial fibrillation: (4) Atrial flutter: Plan: -Rate controlled on digoxin and metoprolol -Anticoagulated on Coumadin, INR pending (5) Tachycardia-bradycardia syndrome: (6) Pacemaker: Plan: -No acute issues (7) CAD (coronary artery disease): Plan: -Appears stable, no reports of chest pain -Continue ASA, beta-natacha (8) S/P MVR (mitral valve replacement): (9) S/P AVR (aortic valve replacement): Plan: -Mechanical -On Coumadin, INR pending (10) Liver cirrhosis secondary to BROWNE: Plan: -Appears compensated (11) DVT prophylaxis: Plan: -On Coumadin Admission and Anticipated Discharge Date Admission Date: March 08, 2021 Subjective ff up for hyperglycemia DM 2, etc seen resting in bed, sitting up states she feels ok overall somewhat tired still has some nasal congestion, sore throat, occ dry cough no chest pain, dyspnea, palpitations, dizziness no abdominal pain ,nausea/vomiting, etc no fever/chills appetite ok no other symptoms Review of Systems Review of Systems: all noted and negative except for above Physical Exam Physical Exam: General- oriented x 3, not in distress, speaks in sentences with no effort or accessory muscle use Eyes- anicteric Neck- no JVD Lungs- clear breath sounds bilaterally, no rales/wheezes Heart- normal rate, regular rhythm; no murmurs Abdomen- normal bowel sounds, nondistended, soft, nontender Extremities- no pretibial edema, no calf tenderness Neuro- alert, oriented x 3; no gross focal neurologic deficits Skin- warm & dry Results & Data Results & Data ([facility]) Vital Signs (Past 12 Hours) Vital Signs Temp Pulse Pulse Resp BP Pulse Ox 03/09/21 11:33 36.5 C 69 20 136/64 98 03/09/21 09:21 67 03/09/21 07:47 36.5 C 78 18 121/65 94 03/09/21 04:50 36.9 C 63 16 119/62 96 all noted and reviewed including below (1) CAD (coronary artery disease) Associated angina: without angina Coronary Disease-Associated Artery/Lesion type: [place] artery [place] vs. transplanted heart: [place] heart Qualified Code(s): I25.10 - Atherosclerotic heart disease of [place] coronary artery without angina pectoris (2) Atrial flutter Atrial flutter type: atypical Qualified Code(s): I48.4 - Atypical atrial flutter
[2021-03-09 15:31] LABS: INR 1.6 (0.9-1.1); Prothrombin Time 15.6 Seconds (9.0-12.0)
[2021-03-09] MEDS ORDERED: WARFARIN SOD 2 MG TAB PO SCH (16:00)
[2021-03-09] MEDS ORDERED: WARFARIN SOD 5 MG TAB PO SCH (16:00)
[2021-03-09] MEDS ORDERED: WARFARIN SOD 5 MG TAB PO ONE (17:33)
[2021-03-09] MEDS ORDERED: ENOXAPARIN 1 MG/KG SC SCH (17:45)
[2021-03-09] MEDS: ENOXAPARIN INJ 60 MG/0.6 ML SYR SQ SCH (18:58)
[2021-03-09] MEDS ORDERED: INSULIN GLARGINE SOLOSTAR 100 UNITS/ML 3 ML PEN SC ONE (21:00)
[2021-03-09] MEDS ORDERED: PROMETHAZINE HCL 12.5 MG in SODIUM CHLORIDE 0.9% 50 ML IV STA (21:30)
[2021-03-10] MEDS: ENOXAPARIN INJ 60 MG/0.6 ML SYR SQ SCH ×2 (05:50→16:28)
[2021-03-10 06:52] LABS: INR 1.6 (0.9-1.1); Prothrombin Time 15.3 Seconds (9.0-12.0)
[2021-03-10] MEDS: ASPIRIN 81 MG ECTAB PO SCH (07:30)
[2021-03-10] MEDS: SERTRALINE HCL 50 MG TABLET PO SCH (07:30)
[2021-03-10] MEDS: DOXYCYCLINE HYCLATE 100 MG CAP PO SCH (07:31)
[2021-03-10] MEDS: METOPROLOL TARTRATE 50 MG TAB PO SCH ×2 (07:31→21:09)
[2021-03-10] MEDS: DIGOXIN 0.125 MG TAB PO SCH (07:31)
[2021-03-10] MEDS: FUROSEMIDE 20 MG TAB PO SCH (07:32)
[2021-03-10 08:31] LABS: BUN Creatinine Ratio 25.6 (10-20); Calcium 9.7 mg/dl (8.5-10.1); Creatinine Clr Calc Pharmacy 46.9 ml/min; Est GFR (African American) 81.1 ml/min; Potassium 3.8 mmol/L (3.5-5.1)
[2021-03-10] MEDS: INSULIN ASPART PER UNIT SC SCH ×4 (08:54→21:09)
[2021-03-10] MEDS: INSULIN GLARGINE SOLOSTAR 100 UNITS/ML 3 ML PEN SC SCH ×2 (08:56→21:11)
[2021-03-10] MEDS ORDERED: FUROSEMIDE 20 MG TAB PO SCH (09:00)
[2021-03-10] MEDS ORDERED: SODIUM CHLORIDE 0.9% 1000ML 1,000 ML IV SCH (09:45)
--- NOTE | 2021-03-10 14:57 | Hospitalist Progress Note ---
Date of Service March 10, 2021 Assessment & Plan (1) Diabetes mellitus, new onset: Plan: per GEOFFREY Perla's with addendum: -Admit to [facility] with telemetry -Patient presenting from home with reports of generally not feeling well. Reports polydipsia and polyuria x 2 weeks. -in the ED, found to have glucose 608. No prior history of diabetes -Hgb A1c 5.6 in 2014, glucose 150 on outpatient labs 12/2020 -No signs of DKA -Started on insulin drip in the ED, continue with -Check A1c -Glycemic pharmacy consult 03/10/21 improving A1c 9 transitioned to Lantus and ISS monitor closely DM educator consulted (2) Viral URI: Plan: -Patient reporting sore throat, nasal congestion, cough -CXR clear. Saturating well on room air. -COVID-19, influenza, RSV testing negative -Continue supportive care 03/10/21 symptoms improved d/c Doxycycline secondary to GI symptoms check C diff, stool PCR consider Augmentin/Cefdinir if C diff negative (3) Atrial fibrillation: (4) Atrial flutter: Plan: -Rate controlled on digoxin and metoprolol -Anticoagulated on Coumadin, INR 1.6 Lovenox + Coumadin (5) Tachycardia-bradycardia syndrome: (6) Pacemaker: Plan: -No acute issues (7) CAD (coronary artery disease): Plan: -Appears stable, no reports of chest pain -Continue ASA, beta-natacha (8) S/P MVR (mitral valve replacement): (9) S/P AVR (aortic valve replacement): Plan: -Mechanical -On Lovenox + Coumadin (10) Liver cirrhosis secondary to BROWNE: Plan: -Appears compensated (11) DVT prophylaxis: Plan: -On Coumadin Admission and Anticipated Discharge Date Admission Date: March 08, 2021 Subjective ff up for hyperglycemia, dM 2- newly diagnosed, etc seen resting in bed, not in distress reports vomiting after dinner yesterday has some nausea this morning, mild abdominal discomfort, diarrhea x 3 no fever/chills no chest pain, dyspnea, palpitations, dizziness no other symptoms Review of Systems Review of Systems: all noted and negative except for above Physical Exam Physical Exam: General- oriented x 3, not in distress, speaks in sentences with no effort or accessory muscle use Eyes- anicteric Neck- no JVD Lungs- clear breath sounds bilaterally, no rales/wheezes Heart- normal rate, regular rhythm; no murmurs Abdomen- normal bowel sounds, nondistended, soft, mild tenderness on all quadrants Extremities- no pretibial edema, no calf tenderness Neuro- alert, oriented x 3; no gross focal neurologic deficits Skin- warm & dry Results & Data Results & Data ([facility]) Vital Signs (Past 12 Hours) Vital Signs Temp Pulse Pulse Resp BP BP Pulse Ox 03/10/21 11:18 36.6 C 66 18 94/60 L 96 03/10/21 07:16 94 H 03/10/21 06:43 36.5 C 75 20 102/64 97 03/10/21 03:05 36.6 C 76 20 118/68 97 all noted and reviewed including below (1) Atrial flutter Atrial flutter type: atypical Qualified Code(s): I48.4 - Atypical atrial flutter (2) CAD (coronary artery disease) Coronary Disease-Associated Artery/Lesion type: [place] artery [place] vs. transplanted heart: [place] heart Associated angina: without angina Qualified Code(s): I25.10 - Atherosclerotic heart disease of [place] coronary artery without angina pectoris
[2021-03-10] MEDS: WARFARIN SOD 5 MG TAB PO SCH (16:27)
[2021-03-11] MEDS: ENOXAPARIN INJ 60 MG/0.6 ML SYR SQ SCH ×2 (05:49→17:22)
--- NOTE | 2021-03-11 08:42 | Pharmacy Report ---
Pharmacy Glycemic Short Note 2 - Date of Service March 11, 2021 - Glycemic Short BSG Results (Last 24 hours): 03/10/21 03/10/21 03/10/21 05:48 11:44 16:42 Glucose 171 H POC Glucose 182 H 109 H 03/10/21 03/11/21 20:36 07:50 Glucose POC Glucose 92 147 H OUTPATIENT ANTIDIABETIC REGIMEN: * n/a - new diagnosis * HbA1c: 9.3% (03/08/21) ASSESSMENT: 03/10: * BSGs much improved yesterday, but trended down throughout the day (173, 182, 109, and 92 mg/dL) * Patient received 50 units of insulin (30 units of Lantus and 20 units of Novolog) * Given downward trend will plan on loosening Novolog after breakfast * Given new diagnosis and high A1c, patient may benefit from once daily basal insulin as an outpatient (if agreeable), will change to once daily administration in case that route is selected 03/09: * Pt was on an insulin infusion starting yesterday evening and continued to early afternoon today. The infusion rate averaged around 2 units/hr for over 12 hrs. In addition, she received 18 units of Lantus and 4 units of Novolog bolus to cover carbs. * Estimate patient needs around 60 units of insulin per day. * Lantus 15 units ordered this AM and insulin infusion discontinued. Novolog CF/CR ordered for dinner time using wt based stress 3. 03/08/21: * BM is a 75 year old female who presented to ED today with increased shortness of breath, fatigue, and nasal congestion. * Patient also reports ~2 weeks of polydipsia and polyuria, BSG of 604 mg/dL - new diagnosis of T2DM * Insulin infusion initiated for significant hyperglycemia * BSGs have trended down nicely since time of insulin infusion initiation, 274 mg/dL most recently * Labs largely normal, no over DKA/HHS * Will give one-time dose of Lantus to assist in insulin drip transition PLAN FOR INPATIENT GLYCEMIC CONTROL: * Basal insulin - change to once daily * Lantus 22 units SC daily (weight-based stress of 2 dosing) * Bolus insulin - loosen * NovoLog ACHS or q6h if NPO * BSG goal range of 110-140 mg/dL * Correction factor: 35 mg/dl/unit * Carb ratio: 1 unit per 12 gm of CHO consumed PLAN FOR DISCHARGE: * HbA1c of 9.3% is above goal * Reasonable goal for most patients is less than 7%, could consider less than 8% if concerned for hypoglycemia as an outpatient * GFR is > 60 mL/min/1.73 m2 * Metformin should be started at the time type 2 diabetes is diagnosed unless there are contraindications. Metformin is effective and safe, is inexpensive, and may reduce risk of cardiovascular events and . * B12 supplementation may be necessary with valve seater operator metformin use * FDA has revised the label for metformin to reflect its safety in patients with eGFR 30 mL/min or above * Recommend starting: Metformin XR 500mg PO daily with evening meal. Typically the XR formulation of metformin is better tolerated than the immediate release formulation. Continue to titrate metformin dosing upwards as recommended. Dosage increases should be made in increments of 500 mg we ekly, up to 2,000 mg/day PO, given in divided doses. * Given CAD, patient may also benefit from addition of SGLT2 inhibitor such as empagliflozin 10 mg PO daily * Support Patient Self-Management * Healthy Lifestyle (diet, exercise, and smoking cessation) * Disease self-management (SMBG) * Prevention of complications (BP, Lipid goals, Immunizations) * Consider outpatient Diabetes Self-Management Education & Support
[2021-03-11] MEDS ORDERED: INSULIN GLARGINE SOLOSTAR 100 UNITS/ML 3 ML PEN SC SCH (09:00)
[2021-03-11] MEDS: ASPIRIN 81 MG ECTAB PO SCH (09:03)
[2021-03-11] MEDS: DIGOXIN 0.125 MG TAB PO SCH (09:03)
[2021-03-11] MEDS: METOPROLOL TARTRATE 50 MG TAB PO SCH ×2 (09:03→20:31)
[2021-03-11] MEDS: SERTRALINE HCL 50 MG TABLET PO SCH (09:03)
[2021-03-11] MEDS: INSULIN GLARGINE SOLOSTAR 100 UNITS/ML 3 ML PEN SC SCH (09:04)
[2021-03-11 09:06] LABS: INR 2.1 (0.9-1.1); Prothrombin Time 20.5 Seconds (9.0-12.0)
[2021-03-11] MEDS: INSULIN ASPART PER UNIT SC SCH ×4 (09:07→22:12)
[2021-03-11 09:30] LABS: BUN Creatinine Ratio 15.4 (10-20); Calcium 9.6 mg/dl (8.5-10.1); Creatinine Clr Calc Pharmacy 54.5 ml/min; Est GFR (African American) 87.5 ml/min; Est GFR (Non-African American) 75.5 ml/min; Potassium 3.5 mmol/L (3.5-5.1)
--- NOTE | 2021-03-11 13:23 | Hospitalist Progress Note ---
Date of Service March 11, 2021 Assessment & Plan (1) Diabetes mellitus, new onset: Plan: per GEOFFREY Perla's with addendum: -Admit to [facility] with telemetry -Patient presenting from home with reports of generally not feeling well. Reports polydipsia and polyuria x 2 weeks. -in the ED, found to have glucose 608. No prior history of diabetes -Hgb A1c 5.6 in 2014, glucose 150 on outpatient labs 12/2020 -No signs of DKA -Started on insulin drip in the ED, continue with -Check A1c -Glycemic pharmacy consult 03/11/21 improved A1c 9 transitioned to Lantus and ISS monitor closely DM educator consulted d/c plan: Metformin XL 500mg daily ff up with PCP in 1 week (2) Viral URI: Plan: -Patient reporting sore throat, nasal congestion, cough -CXR clear. Saturating well on room air. -COVID-19, influenza, RSV testing negative -Continue supportive care 03/11/21 symptoms improved d/c Doxycycline secondary to GI symptoms check C diff, stool PCR (3) Atrial fibrillation: (4) Atrial flutter: Plan: -Rate controlled on digoxin and metoprolol -Anticoagulated on Coumadin, INR 2.1 (goal 2.5- 3.5) Lovenox + Coumadin (5) Tachycardia-bradycardia syndrome: (6) Pacemaker: Plan: -No acute issues (7) CAD (coronary artery disease): Plan: -Appears stable, no reports of chest pain -Continue ASA, beta-natacha (8) S/P MVR (mitral valve replacement): (9) S/P AVR (aortic valve replacement): Plan: -Mechanical -On Lovenox + Coumadin per above (10) Liver cirrhosis secondary to BROWNE: Plan: -Appears compensated (11) DVT prophylaxis: Plan: -On Coumadin Admission and Anticipated Discharge Date Admission Date: March 08, 2021 Subjective ff up for newly diagnosed DM 2 etc seen resting in bed, comfortabe gi symptoms have resolved feels better today no chest pain, dyspnea, palpitations, dizziness no other symptoms Review of Systems Review of Systems: all noted and negative except for above Physical Exam Physical Exam: General- oriented x 3, not in distress, speaks in sentences with no effort or accessory muscle use Eyes- anicteric Neck- no JVD Lungs- clear BS BL Heart- normal rate, regular rhythm; no murmurs Abdomen- normal bowel sounds, nondistended, soft, nontender Extremities- no pretibial edema, no calf tenderness Neuro- alert, oriented x 3; no gross focal neurologic deficits Skin- warm & dry Results & Data Results & Data ([facility]) Vital Signs (Past 12 Hours) Vital Signs Temp Pulse Pulse Resp BP BP Pulse Ox 03/11/21 12:06 36.6 C 63 18 135/74 97 03/11/21 09:03 75 03/11/21 07:21 75 03/11/21 07:10 36.4 C L 74 20 107/51 L 98 03/11/21 03:30 36.5 C 70 20 121/60 98 (1) Atrial flutter Atrial flutter type: atypical Qualified Code(s): I48.4 - Atypical atrial flutter (2) CAD (coronary artery disease) Coronary Disease-Associated Artery/Lesion type: [place] artery [place] vs. transplanted heart: [place] heart Associated angina: without angina Qualified Code(s): I25.10 - Atherosclerotic heart disease of [place] coronary artery with out angina pectoris
[2021-03-11 14:58] LABS: Adenovirus F 40/41 PCR Not Detected (NotDetected); Astrovirus PCR Not Detected (NotDetected); Campylobacter PCR Not Detected (NotDetected); Clostridium diff Toxin A/B PCR Not Detected (NotDetected); Cryptosporidium PCR Not Detected (NotDetected); Cyclospora cayetanensis PCR Not Detected (NotDetected); Entamoeba histolytica PCR Not Detected (NotDetected); Enteroaggregative E.coli(EAEC) Not Detected (NotDetected); Enteropathogenic E.coli (EPEC) Not Detected (NotDetected); Enterotoxigenic E.coli (ETEC) Not Detected (NotDetected); Giardia lamblia PCR Not Detected (NotDetected); Norovirus GI/GII PCR Not Detected (NotDetected); Plesiomonas shigelloides PCR Not Detected (NotDetected); Rotavirus A PCR Not Detected (NotDetected); Salmonella PCR Not Detected (NotDetected); Sapovirus PCR Not Detected (NotDetected); Shiga-like Toxin E.coli (STEC) Not Detected (NotDetected); Shigella/Enteroinvasive E.coli Not Detected (NotDetected); Vibrio cholerae PCR Not Detected (NotDetected); Vibrio species PCR Not Detected (NotDetected); Yersinia enterocolitica PCR Not Detected (NotDetected)
[2021-03-11] MEDS: WARFARIN SOD 5 MG TAB PO SCH (17:22)
[2021-03-11] MEDS: CEFDINIR 300 MG CAP PO SCH (20:29)
[2021-03-12] MEDS: ENOXAPARIN INJ 60 MG/0.6 ML SYR SQ SCH (06:06)
[2021-03-12 08:05] LABS: INR 2.6 (0.9-1.1); Prothrombin Time 24.5 Seconds (9.0-12.0)
[2021-03-12] MEDS: INSULIN ASPART PER UNIT SC SCH ×3 (08:28→17:03)
[2021-03-12] MEDS: INSULIN GLARGINE SOLOSTAR 100 UNITS/ML 3 ML PEN SC SCH (08:29)
[2021-03-12 08:34] LABS: BUN Creatinine Ratio 19.8 (10-20); Calcium 10.3 mg/dl (8.5-10.1); Creatinine Clr Calc Pharmacy 60.8 ml/min; Est GFR (African American) 98.2 ml/min; Est GFR (Non-African American) 84.8 ml/min; Potassium 3.9 mmol/L (3.5-5.1)
[2021-03-12] MEDS: ASPIRIN 81 MG ECTAB PO SCH (08:34)
[2021-03-12] MEDS: SERTRALINE HCL 50 MG TABLET PO SCH (08:34)
[2021-03-12] MEDS: DIGOXIN 0.125 MG TAB PO SCH (08:34)
[2021-03-12] MEDS: CEFDINIR 300 MG CAP PO SCH (08:35)
[2021-03-12] MEDS: METOPROLOL TARTRATE 50 MG TAB PO SCH (08:35)
--- NOTE | 2021-03-12 09:14 | Pharmacy Report ---
Pharmacy Glycemic Short Note 2 - Date of Service March 12, 2021 - Glycemic Short BSG Results (Last 24 hours): 03/11/21 03/11/21 03/11/21 08:27 11:53 16:37 Glucose 227 H POC Glucose 112 H 107 H 03/11/21 03/12/21 03/12/21 20:02 07:31 07:37 Glucose 158 H POC Glucose 108 H 150 H OUTPATIENT ANTIDIABETIC REGIMEN: * n/a - new diagnosis * HbA1c: 9.3% (03/08/21) ASSESSMENT: 03/11: * BSGs very well controlled yesterday, ranging 107-147 mg/dL * Received 32 units of insulin, 22 units of basal and 10 units of bolus * Will continue current Lantus/Novolog orders * Plan is to discharge with once daily basal insulin 03/10: * BSGs much improved yesterday, but trended down throughout the day (173, 182, 109, and 92 mg/dL) * Patient received 50 units of insulin (30 units of Lantus and 20 units of Novolog) * Given downward trend will plan on loosening Novolog after breakfast * Given new diagnosis and high A1c, patient may benefit from once daily basal insulin as an outpatient (if agreeable), will change to once daily administration in case that route is selected 03/09: * Pt was on an insulin infusion starting yesterday evening and continued to early afternoon today. The infusion rate averaged around 2 units/hr for over 12 hrs. In addition, she received 18 units of Lantus and 4 units of Novolog bolus to cover carbs. * Estimate patient needs around 60 units of insulin per day. * Lantus 15 units ordered this AM and insulin infusion discontinued. Novolog CF/CR ordered for dinner time using wt based stress 3. 03/08/21: * BM is a 75 year old female who presented to ED today with increased shortness of breath, fatigue, and nasal congestion. * Patient also reports ~2 weeks of polydipsia and polyuria, BSG of 604 mg/dL - n ew diagnosis of T2DM * Insulin infusion initiated for significant hyperglycemia * BSGs have trended down nicely since time of insulin infusion initiation, 274 mg/dL most recently * Labs largely normal, no over DKA/HHS * Will give one-time dose of Lantus to assist in insulin drip transition PLAN FOR INPATIENT GLYCEMIC CONTROL: * Basal insulin - continue * Lantus 22 units SC daily (weight-based stress of 2 dosing) * Bolus insulin - loosen * NovoLog ACHS or q6h if NPO * BSG goal range of 110-140 mg/dL * Correction factor: 35 mg/dl/unit * Carb ratio: 1 unit per 12 gm of CHO consumed PLAN FOR DISCHARGE: * HbA1c of 9.3% is above goal * Reasonable goal for most patients is less than 7%, could consider less than 8% if concerned for hypoglycemia as an outpatient * Discussed with para educator, patient not agreeable to metformin, so will move forward with once daily Lantus * At this point, Lantus 25 units SC daily is likely appropriate for discharge * Patient should SMBG at least twice daily, AM fasting + one other time during the day * Ensure prompt follow-up with outpatient provider for further dose titration of insulin. Patient should immediately notify provider of any BSG values that are significantly out of range, (i.e. BSG less than 70 mg/dL or greater than 300 mg/dL) * Support Patient Self-Management * Healthy Lifestyle (diet, exercise, and smoking cessation) * Disease self-management (SMBG) * Prevention of complications (BP, Lipid goals, Immunizations) * Consider outpatient Diabetes Self-Management Education & Support
[2021-03-12] MEDS: WARFARIN SOD 5 MG TAB PO SCH (17:02)
--- NOTE | 2021-03-13 15:39 | Hospitalist Progress Note ---
Date of Service March 13, 2021 delayed entry date of service 03/12/21 Assessment & Plan (1) Acute hyperglycemia: (2) Diabetes mellitus, new onset: Plan: (1) Diabetes mellitus, new onset: Plan: per GEOFFREY Perla's with addendum: -Admit to [facility] with telemetry -Patient presenting from home with reports of generally not feeling well. Reports polydipsia and polyuria x 2 weeks. -in the ED, found to have glucose 608. No prior history of diabetes -Hgb A1c 5.6 in 2014, glucose 150 on outpatient labs 12/2020 -No signs of DKA -Started on insulin drip in the ED, continue with 03/12/21 better overall BSG within acceptable range A1c 9 transitioned to Lantus and ISS monitor closely DM educator consulted d/c plan: Lantus 25 units SC (patient declinig Metformin) ff up with PCP in 1 week (2) Viral URI: Plan: -Patient reporting sore throat, nasal congestion, cough -CXR clear. Saturating well on room air. -COVID-19, influenza, RSV testing negative -Continue supportive care 03/12/21 symptoms improving d/c Doxycycline secondary to GI symptoms Cefdinir 300mg BID x 5 day (3) Atrial fibrillation: (4) Atrial flutter: Plan: -Rate controlled on digoxin and metoprolol -Anticoagulated on Coumadin Lovenox + Coumadin given as INR 1.8 -INR on discharge 2.6 d/c instructions: coumadin 5mg x 1 day, then 4mg daily until ff up with Coumadin clinic this week (5) Tachycardia-bradycardia syndrome: (6) Pacemaker: Plan: -No acute issues (7) CAD (coronary artery disease): Plan: -Appears stable, no reports of chest pain -Continue ASA, beta-natacha (8) S/P MVR (mitral valve replacement): (9) S/P AVR (aortic valve replacement): Plan: -Mechanical -given Lovenox + Coumadin per above (10) Liver cirrhosis secondary to BROWNE: Plan: -Appears compensated Disposition d/c home with home health services ff up with PCP in 1 week Admission and Anticipated Discharge Date Admission Date: March 08, 2021 Subjective ff up for new DM, etc seen resting in bed, sitting up in good spirits states she feels fine overall no chest pain, dyspnea, palpitations, dizziness no abdominal pain, nausea/vomiting, etc no other symptoms Review of Systems Review of Systems: all noted and negative except for above Physical Exam Physical Exam: General- oriented x 3, not in distress, speaks in sentences with no effort or accessory muscle use Eyes- anicteric Neck- no JVD Lungs- clear breath sounds BL Heart- normal rate, regular rhythm; no murmurs Abdomen- normal bowel sounds, nondistended, soft, no tenderness Extremities- no pretibial edema, no calf tenderness Neuro- alert, oriented x 3; no gross focal neurologic deficits Skin- warm & dry
--- NOTE | 2021-03-13 15:44 | Discharge Summary ---
Date of Service March 13, 2021 Admission HPI Per Admitting Provider 75-year-old female with PMH atrial fibrillation and atrial flutter anticoagulated on Coumadin, tachybradycardia syndrome s/p pacemaker, CAD s/p CABG, chronic diastolic CHF, history of mechanical aortic and mitral valve replacement, and other problems to below who presents the ED with a complaint of generally not feeling well. Patient reports that earlier in the week, she developed some nausea and diarrhea. Reports a history of IBS and diarrhea is a somewhat chronic problem for her. She describes it is generally not feeling well for the remainder of the week. She felt lightheaded and had some blurred vision at times. She also developed a sore throat with nasal congestion and cough. Was also running a low-grade fever of around 100. Also has some mild exertional shortness of breath. Patient notes increased thirst and urination for the past couple of weeks. No abdominal pain or vomiting. No chest pain or palpitations. Denies dysuria. In the ED, patient is found to have blood glucose 604, no prior history of diabetes. CXR clear, COVID-19 and influenza testing negative. Hemodynamically stable. Patient was started on IV insulin drip. Admission Exam (Per Admitting) Constitutional Constitutional: WD/WN, vitals as above Eyes: PERRL, conjunctivae normal, anicteric sclerae ENMT: external ear and nose normal, oropharynx normal Respiratory: normal respiratory effort, lungs clear to auscultation Cardiovascular: Rate/Rhythm: regular rate and regular rhythm Heart Sounds: + click Vessels: normal peripheral pulses Extremities: no edema Gastrointestinal (Abdomen): normal bowel sounds, soft, nontender, no hepatosplenomegaly Musculoskeletal: no cyanosis or clubbing, extremities motor strength 5/5 Skin: no rashes, warm and dry Neurologic: PERRL, EOMI, accommodation nl, no face palsy, no dysarthria Psychiatric: A+Ox3, euthymic affect Discharge Data Consultations 03/08/21 15:38 ED Decision to Admit Stat Diabetes Follow Up Diabetes Follow Up: Diabetes Follow-up Needed for Newly Diagnosed Diabetes Hospital Course (1) Acute hyperglycemia: (2) Diabetes mellitus, new onset: (1) Diabetes mellitus, new onset: Plan: per GEOFFREY Rodriguez with addendum: -Admit to [facility] with telemetry -Patient presenting from home with reports of generally not feeling well. Reports polydipsia and polyuria x 2 weeks. -in the ED, found to have glucose 608. No prior history of diabetes -Hgb A1c 5.6 in 2014, glucose 150 on outpatient labs 12/2020 -No signs of DKA -Started on insulin drip in the ED, continue with 03/12/21 better overall BSG within acceptable range A1c 9 transitioned to Lantus and ISS monitor closely DM educator consulted d/c plan: Lantus 25 units SC (patient declinig Metformin) ff up with PCP in 1 week (2) Viral URI: Plan: -Patient reporting sore throat, nasal congestion, cough -CXR clear. Saturating well on room air. -COVID-19, influenza, RSV testing negative -Continue supportive care 03/12/21 symptoms improving d/c Doxycycline secondary to GI symptoms Cefdinir 300mg BID x 5 day (3) Atrial fibrillation: (4) Atrial flutter: Plan: -Rate controlled on digoxin and metoprolol -Anticoagulated on Coumadin Lovenox + Coumadin given as INR 1.8 -INR on discharge 2.6 d/c instructions: coumadin 5mg x 1 day, then 4mg daily until ff up with Coumadin clinic this week (5) Tachycardia-bradycardia syndrome: (6) Pacemaker: Plan: -No acute issues (7) CAD (coronary artery disease): Plan: -Appears stable, no reports of chest pain -Continue ASA, beta-natacha (8) S/P MVR (mitral valve replacement): (9) S/P AVR (aortic valve replacement): Plan: -Mechanical -given Lovenox + Coumadin per above (10) Liver cirrhosis secondary to BROWNE: Plan: -Appears compensated Disposition d/c home with home health services ff up with PCP in 1 week
== END 2021-03-12 17:49 | disposition home health service (06) | DRG 638 ==
LOC: ED 12:38 → EDINP 15:53 → 2N 03-09 00:15

== ENCOUNTER 2022-06-09 19:36 | Inpatient (IN) ==
--- NOTE | 2022-06-09 20:04 | Emergency Department Note ---
Impression & Plan Gastroenteritis, Abdominal pain, Elevated troponin I level ED Provider Note Provider: Marc Engle MD DATE OF SERVICE: 06/09/2022 CHIEF COMPLAINT: Nausea, dizziness, abdominal discomfort HISTORY OF PRESENT ILLNESS: Patient is a 76-year-old female history of atrial fibrillation, pacemaker placement, CAD, mechanical valve on warfarin, BROWNE, prior appendectomy and cholecystectomy presenting here today via ambulance. Patient states she has been well today without recent travel had a sudden onset around 6:30 PM while playing a game with friends of significant nausea. Did vomit and states she felt dizzy during this period but did not pass out. Denies significant chest pain or shortness of breath. Symptoms are much improved now. Received some Zofran in route for EMS. Denies other sick contacts recently. Denies any lower abdominal pain but some pain in the right upper abdomen re ported. PAST MEDICAL HISTORY: As noted above MEDICATIONS: Reviewed home medications includes warfarin SOCIAL HISTORY: Non-smoking PHYSICAL EXAM: GENERAL: alert and oriented in no acute distress on stretcher Head: normocephalic and atraumatic EYES: No injection, discharge or icterus. PERRL NECK: Trachea midline. Supple. ENT: Mucous membranes pink and moist. LUNGS: Airway patent. No retractions. Breath sounds clear with good air entry bilaterally. HEART: Regular rate and rhythm. No chest wall tenderness ABDOMEN: Soft with some mild right upper quadrant tenderness SKIN: Acyanotic, warm, dry, without rashes EXTREMITIES: Without swelling, tenderness or deformity NEUROLOGICAL: No focal deficits moving all extremities without issue to commands. No aphasia. No facial droop or slurred speech. EK bpm ventricularly paced rhythm without PVC noted. Artifact noted. No clear Sgarbossa criteria elevations noted. QTc 554 considering intraventricular conduction delay due to pacing. CONTINUOUS CARDIAC MONITORING: was ordered and showed a heart rate of 70s-90s bpm in ventricular paced rhythm normal sinus rhythm Patient's laboratory studies and imaging reviewed. Differential includes Gastroenteritis, food borne illness, infections, inflammatory bowel disease, obstruction, GI bleed, biliary pathology, volvulus, intracranial abnormality, cardiac ischemia, as well as other pathologies. IMPRESSION/MEDICAL DECISION MAKING: Patient anticoagulated for mechanical valve with sudden onset of nausea and some right upper quadrant pain. No significant focal deficit symptoms improved after some Zofran. No recent sick contacts. Mildly tender in the abdomen but states prior cholecystectomy. Did check INR as well as basic blood work including digoxin given her significant cardiac history. We will complete a CT of the head to exclude intracranial abnormality causing symptoms although not having severe head pain as well as a CT of the abdomen pelvis to look for acute intra- abdominal pathology. Given prior cholecystectomy doubt that this is recurring. Question if she could be experiencing a simple gastroenteritis. EKG and troponin were sent to look for any cardiac abnormalities without significant arrhythmia noted here today. INR therapeutic. Troponin elevated. Compared to previous values does have prior undetectable's. Slight leukocytosis 10.9 could be reactive unclear. No severe electrolyte abnormality. No evidence of hepatitis or pancreatitis based on labs. Pacemaker interrogation ordered. CT of the head as well as the abdomen pelvis per radiology shows possible enteritis but no evidence of acute intracranial findings. Patient not significantly nauseous now but still with a little bit of right upper quadrant pain. Likely demand doubt acute ACS. Given some fluid hydration. Patient will require further observation here given her symptoms and the elevated troponin for trending. Underlying cardiac disease unsure if this is chronic or new but most previous recent normal sensitivity troponin without elevation in the system from last March. DIAGNOSIS: Gastroenteritis, abdominal pain, elevated troponin DISPOSITION: Hospitalist will evaluate Patient was agreeable with this plan. Past Med/Surg History Medical History (Updated 06/09/22 @ 22:00 by Marc Engle M.D.) Anticoagulation goal of INR 2.5 to 3.5 Anxiety Atrial fibrillation follows with Dr. Almeida; h/o mult cardioversions; on warfarin Atrial flutter CAD (coronary artery disease) Rheumatic heart disease, on March 04, 2002 patient underwent aortic valve replacement and mitral valve replacement along with CABG x3 with a KIRK to the LAD, right internal mammary artery anastomosis as a free graft to the RCA and a single saphenous vein graft to the diagonal coronary artery and radiofrequency ablation of atrial fibrillation pathways at [facility]. 01/2011 admitted to [facility] secondary to symptomatically A. fib flutter which patient underwent DCCV. Sotalol was started but stopped due to intolerance secondary to nausea and bradycardia. July 2011 Tikosyn loading and successful repeat DCCV. 01/08/12 underwent cardiac catheterization at [facility] and remained on warfarin. Noted to have single-vessel disease 70% mid LAD, 2 of the 3 bypasses were patent. There was obstruction of the SVG to diagonal however, the [place] diagonal had no significant obstruction. 12/24/12 hospitalized at [facility] and underwent redo of mechanical MVR By Dr. Manley. Postop day flutter noted. Tikosyn was discontinued and sent home on amiodarone and metoprolol. 05/3015 admitted to [facility] secondary to symptomatically flutter and tikosyn re-initiated. 11/2015 admitted to [facility] secondary to recurrent symptomatic paroxysmal atrial flutter with RVR, status post DCCV. CKD (chronic kidney disease), stage II pt denies. 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; tachy-lindy syndrome; [employer]; last checked 1 mo ago Paroxysmal atrial flutter Rheumatic heart disease Surgical History (Updated 03/08/21 @ 17:55 by GEOFFREY Caban) H/O esophagogastroduodenoscopy History of bilateral breast reduction surgery History of bilateral tubal ligation History of cardiac cath 2002 & ~2013 [facility] History of cataract surgery bilateral History of cholecystectomy History of colonoscopy History of partial thyroidectomy History of tonsillectomy Hx of appendectomy Hx of CABG x3 vessels (2002) at [facility] S/P AVR (aortic valve replacement) "Mechanical 2002 On 05/25/15 15:41 Mel Quevedo wrote "Mechanical 2002" S/P cholecystectomy S/P MVR (mitral valve replacement) "Mechanical 2002" plus a revision 2012 S/P NELLY (total abdominal hysterectomy) LSO Family History Mother Colorectal cancer Father FHx: bladder cancer Other No family history of adverse response to anesthesia Social History Smoking Status: Never smoker Second Hand Exposure: No; Hx Alcohol Use: Yes Hx Substance Use: No Preferred Language: Cymro Communication Ability: Effective Chief Librarian Branch Required: No Beliefs That Will Affect Care: None Current Living Situation: Alone Feels Safe at Home: Yes Assistive Devices: Cane and Walker Allergies Allergies Allergy/AdvReac Type Severity Reaction Status Date / Time lidocaine Allergy Intermediate Rash/hives Verified 06/09/22 20:37 [From Aspercreme (lidocaine)] with cream Sulfa (Sulfonamide Allergy Intermediate Rash, hives Verified 06/09/22 20:37 Antibiotics) latex Allergy Unknown Wheezing Verified 06/09/22 20:37 levothyroxine AdvReac Intermediate Tachycardia Verified 06/09/22 20:37 Home Meds Home Medications Medication Instructions Recorded Confirmed furosemide 20 mg tablet See Rx Instructions .Route .COMPLEX 05/27/18 06/09/22 nitroglycerin 0.4 mg sublingual 0.4 mg sublingual DIRECTED PRN 05/27/18 06/09/22 tablet (Nitrostat) Chest Pain sertraline 50 mg tablet 50 mg PO QAM 04/05/20 06/09/22 digoxin 125 mcg (0.125 mg) tablet 125 mcg PO QAM 08/14/20 06/09/22 metoprolol tartrate 25 mg tablet 50 mg PO AMHS 08/14/20 06/09/22 cholecalciferol (vitamin D3) 25 50 mcg PO QAM 03/08/21 06/09/22 mcg (1,000 unit) tablet (Vitamin D3) amoxicillin 500 mg capsule 2,000 mg PO ONCE PRN Prophylaxis 06/09/22 06/09/22 aspirin 81 mg tablet,delayed 81 mg PO DAILY 06/09/22 06/09/22 release empagliflozin 10 mg tablet 10 mg PO QAM 06/09/22 06/09/22 (Jardiance) fluticasone propionate 50 1 spray intranasal HS 06/09/22 06/09/22 mcg/actuation nasal spray,suspension metformin 500 mg tablet,extended 500 mg PO PM 06/09/22 06/09/22 release 24hr rosuvastatin 5 mg tablet 5 mg PO QAM 06/09/22 06/09/22 warfarin 1 mg tablet 2 - 3 mg PO DAILY 06/09/22 06/09/22 Results & Data (ED) Vital Signs Vital Signs - 24 hr 06/09/22 19:42 06/09/22 19:42 06/09/22 19:42 Temperature 36.4 C L Temperature Source Oral Pulse Rate 89 105 H Pulse Rate from SpO2 Sensor Pulse Rhythm Regular Pulse Strength Normal Respiratory Rate 18 Respiratory Effort / Characteristics Non-Labored Spontaneous Respiratory Depth Normal Respiratory Pattern Regular Blood Pressure 125/83 153/75 H Blood Pressure Mean 97 101 Blood Pressure Position Lying Pulse Oximetry 100 Oxygen Delivery Method Room Air Sepsis Recent Fever Within 48 Hours No Sepsis New/Unexplained Change in Mental Status N/A Sepsis Action Taken by Nursing No Action Required 06/09/22 19:43 06/09/22 19:47 06/09/22 19:47 Temperature Temperature Source Pulse Rate 88 80 Pulse Rate from SpO2 Sensor 89 80 Pulse Rhythm Pulse Strength Respiratory Rate 17 18 Respiratory Effort / Characteristics Respiratory Depth Respiratory Pattern Blood Pressure 125/84 Blood Pressure Mean 97 Blood Pressure Position Pulse Oximetry 97 98 Oxygen Delivery Method Room Air Sepsis Recent Fever Within 48 Hours Sepsis New/Unexplained Change in Mental Status Sepsis Action Taken by Nursing 06/09/22 19:48 06/09/22 19:48 06/09/22 19:57 Temperature Temperature Source Pulse Rate 73 74 Pulse Rate from SpO2 Sensor 73 69 Pulse Rhythm Pulse Strength Respiratory Rate 15 16 Respiratory Effort / Characteristics Respiratory Depth Respiratory Pattern Blood Pressure 148/67 H Blood Pressure Mean 94 Blood Pressure Position Pulse Oximetry 99 94 Oxygen Delivery Method Room Air Room Air Sepsis Recent Fever Within 48 Hours Sepsis New/Unexplained Change in Mental Status Sepsis Action Taken by Nursing 06/09/22 19:57 06/09/22 20:00 06/09/22 20:30 Temperature Temperature Source Pulse Rate 72 Pulse Rate from SpO2 Sensor 71 Pulse Rhythm Pulse Strength Respiratory Rate 19 Respiratory Effort / Characteristics Respiratory Depth Respiratory Pattern Blood Pressure 124/76 133/72 Blood Pressure Mean 92 92 Blood Pressure Position Pulse Oximetry 99 Oxygen Delivery Method Room Air Sepsis Recent Fever Within 48 Hours Sepsis New/Unexplained Change in Mental Status Sepsis Action Taken by Nursing 06/09/22 20:30 06/09/22 21:00 06/09/22 21:00 Temperature Temperature Source Pulse Rate 68 68 Pulse Rate from SpO2 Sensor 64 68 Pulse Rhythm Pulse Strength Respiratory Rate 15 17 Respiratory Effort / Characteristics Respiratory Depth Respiratory Pattern Blood Pressure 117/67 Blood Pressure Mean 83 Blood Pressure Position Pulse Oximetry 99 100 Oxygen Delivery Method Room Air Room Air Sepsis Recent Fever Within 48 Hours Sepsis New/Unexplained Change in Mental Status Sepsis Action Taken by Nursing 06/09/22 21:30 06/09/22 21:30 06/09/22 21:51 Temperature Temperature Source Pulse Rate 83 71 Pulse Rate from SpO2 Sensor 84 70 Pulse Rhythm Pulse Strength Respiratory Rate 21 15 Respiratory Effort / Characteristics Respiratory Depth Respiratory Pattern Blood Pressure 118/70 Blood Pressure Mean 86 Blood Pressure Position Pulse Oximetry 97 96 Oxygen Delivery Method Sepsis Recent Fever Within 48 Hours Sepsis New/Unexplained Change in Mental Status Sepsis Action Taken by Nursing 06/09/22 21:51 06/09/22 22:00 06/09/22 22:00 Temperature Temperature Source Pulse Rate 68 Pulse Rate from SpO2 Sensor 68 Pulse Rhythm Pulse Strength Respiratory Rate 19 Respiratory Effort / Characteristics Respiratory Depth Respiratory Pattern Blood Pressure 114/55 L 126/70 Blood Pressure Mean 74 88 Blood Pressure Position Pulse Oximetry 97 Oxygen Delivery Method Room Air Sepsis Recent Fever Within 48 Hours Sepsis New/Unexplained Change in Mental Status Sepsis Action Taken by Nursing 06/09/22 22:30 06/09/22 22:30 06/09/22 23:00 Temperature Temperature Source Pulse Rate 68 Pulse Rate from SpO2 Sensor 67 Pulse Rhythm Pulse Strength Respiratory Rate 15 Respiratory Effort / Characteristics Respiratory Depth Respiratory Pattern Blood Pressure 111/68 101/68 Blood Pressure Mean 82 79 Blood Pressure Position Pulse Oximetry 96 Oxygen Delivery Method Room Air Sepsis Recent Fever Within 48 Hours Sepsis New/Unexplained Change in Mental Status Sepsis Action Taken by Nursing 06/09/22 23:00 Temperature Temperature Source Pulse Rate 68 Pulse Rate from SpO2 Sensor Pulse Rhythm Pulse Strength Respiratory Rate 24 Respiratory Effort / Characteristics Respiratory Depth Respiratory Pattern Blood Pressure Blood Pressure Mean Blood Pressure Position Pulse Oximetry Oxygen Delivery Method Sepsis Recent Fever Within 48 Hours Sepsis New/Unexplained Change in Mental Status Sepsis Action Taken by Nursing Laboratory Data 06/09/22 19:50 06/09/22 19:50 Lab Results 06/09/22 06/09/22 06/09/22 Range/Units 19:50 19:50 19:50 WBC 10.90 H (4.8-10.8) K/ul RBC 5.16 (4.20-5.40) M/uL Hgb 14.7 (12.0-16.0) g/dl Hct 43.8 (37.0-47.0) % MCV 84.9 (80.0-100.0) fL MCH 28.5 (25.0-34.0) pg MCHC 33.6 (32.0-36.0) g/dL RDW Std Deviation 46.5 H (36.4-46.3) fL RDW Coeff of Tammi 15.0 H (11.5-14.5) % Plt Count 206 (130-400) K/uL MPV 11.1 (9.4-12.4) fL Immature Gran % (Auto) 0.4 % Neut % (Auto) 62.4 % Lymph % (Auto) 27.4 % [place] % (Auto) 8.6 % Eos % (Auto) 0.6 % Baso % (Auto) 0.6 % Neut # (Auto) 6.80 H (1.40-6.50) K/uL Lymph # (Auto) 2.99 (1.2-3.4) K/uL Cowley # (Auto) 0.94 H (0.11-0.59) K/uL Eos # (Auto) 0.07 (0-0.50) K/uL Baso # (Auto) 0.06 (0-0.2) K/uL Immature Gran # (Auto) 0.04 (0.01-0.20) K/uL PT 21.9 H (9.0-12.0) Seconds INR 2.1 H (0.9-1.1) APTT 41.0 H (21.0-31.0) Seconds PTT Ratio 1.5 Sodium 135 L (136-145) mmol/L Potassium 3.6 (3.5-5.1) mmol/L Chloride 100 (98-107) mmol/L Carbon Dioxide 24 (21-32) mmol/L Anion Gap 11 (3-11) BUN 25 H (6-23) mg/dl Creatinine 0.96 (0.6-1.2) mg/dl Est Cr Clr Drug Dosing 39.4 ml/min Est GFR ( Amer) 66.6 ml/min Est GFR (Non-Af Amer) 57.4 ml/min BUN/Creatinine Ratio 26.0 H (10-20) Glucose 179 H (70-99(Fasting)) mg/dl Calcium 10.5 H (8.6-10.3) mg/dl Total Bilirubin 0.9 (0.2-1.0) mg/dl AST 39 (13-39) U/L ALT 21 (7-52) U/L Alkaline Phosphatase 60 (34-104) U/L Troponin I High Sens 107.7 H* (0-14) pg/ml Total Protein 8.5 H (6.0-8.3) gm/dl Albumin 4.5 (3.4-5.0) gm/dl Globulin 4.0 (2.5-4.0) gm/dl Albumin/Globulin Ratio 1.1 (0.9-2) Lipase 41 (11-82) U/L Urine Color Urine Appearance (Clear) Urine pH (4.5-7.5) Ur Specific [place] (1.000-1.030) Urine Protein (Negative) Urine Glucose (UA) (Negative) Urine Ketones (Negative) Urine Blood (Negative) Urine Nitrite (Negative) Urine Bilirubin (Negative) Urine Urobilinogen (Negative) Ur Leukocyte Esterase (Negative) Urine RBC (0-4) /hpf Urine WBC (0-5) /hpf Ur Epithelial Cells (0-5) /lpf Urine Bacteria (Negative) Digoxin (0.8-2.0) ng/ml SARS-CoV-2, RNA, NAAT (NEGATIVE) 06/09/22 06/09/22 06/09/22 Range/Units 19:52 20:22 21:20 WBC (4.8-10.8) K/ul RBC (4.20-5.40) M/uL Hgb (12.0-16.0) g/dl Hct (37.0-47.0) % MCV (80.0-100.0) fL MCH (25.0-34.0) pg MCHC (32.0-36.0) g/dL RDW Std Deviation (36.4-46.3) fL RDW Coeff of Tammi (11.5-14.5) % Plt Count (130-400) K/uL MPV (9.4-12.4) fL Immature Gran % (Auto) % Neut % (Auto) % Lymph % (Auto) % [place] % (Auto) % Eos % (Auto) % Baso % (Auto) % Neut # (Auto) (1.40-6.50) K/uL Lymph # (Auto) (1.2-3.4) K/uL [place] # (Auto) (0.11-0.59) K/uL Eos # (Auto) (0-0.50) K/uL Baso # (Auto) (0-0.2) K/uL Immature Gran # (Auto) (0.01-0.20) K/uL PT (9.0-12.0) Seconds INR (0.9-1.1) APTT (21.0-31.0) Seconds PTT Ratio Sodium (136-145) mmol/L Potassium (3.5-5.1) mmol/L Chloride (98-107) mmol/L Carbon Dioxide (21-32) mmol/L Anion Gap (3-11) BUN (6-23) mg/dl Creatinine (0.6-1.2) mg/dl Est Cr Clr Drug Dosing ml/min Est GFR ( Amer) ml/min Est GFR (Non-Af Amer) ml/min BUN/Creatinine Ratio (10-20) Glucose (70-99(Fasting)) mg/dl Calcium (8.6-10.3) mg/dl Total Bilirubin (0.2-1.0) mg/dl AST (13-39) U/L ALT (7-52) U/L Alkaline Phosphatase (34-104) U/L Troponin I High Sens (0-14) pg/ml Total Protein (6.0-8.3) gm/dl Albumin (3.4-5.0) gm/dl Globulin (2.5-4.0) gm/dl Albumin/Globulin Ratio (0.9-2) Lipase (11-82) U/L Urine Color Yellow Urine Appearance Clear (Clear) Urine pH 5.5 (4.5-7.5) Ur Specific [place] 1.010 (1.000-1.030) Urine Protein Trace H (Negative) Urine Glucose (UA) 3+ H (Negative) Urine Ketones 1+ H (Negative) Urine Blood Negative (Negative) Urine Nitrite Negative (Negative) Urine Bilirubin Negative (Negative) Urine Urobilinogen Negative (Negative) Ur Leukocyte Esterase Negative (Negative) Urine RBC 0-4 (0-4) /hpf Urine WBC 10-30 H (0-5) /hpf Ur Epithelial Cells 0-5 (0-5) /lpf Urine Bacteria Negative (Negative) Digoxin 0.5 L (0.8-2.0) ng/ml SARS-CoV-2, RNA, NAAT NEGATIVE (NEGATIVE) Administered Medications Potassium Chloride/Sodium Chloride (Normal Saline W/20 Meq Kcl) 20 meq in 1,000 mls @ 80 mls/hr IV .[id number] ONE; Protocol Stop: 06/10/22 11:45 Last Admin: 06/09/22 23:50 Dose: 80 mls/hr Documented By: TAYLOR Discontinued Medications Acetaminophen (Acetaminophen Susp 325 Mg/10.15 Ml Udc) 325 mg PO NOW STA Stop: 06/09/22 23:16 Last Admin: 06/10/22 00:07 Dose: Not Given Documented By: TAYLOR Sodium Chloride (Nss 1000ml) 500 mls @ 999 mls/hr IV .Q31M ONE Stop: 06/09/22 22:24 Last Admin: 06/09/22 22:49 Dose: 999 mls/hr Documented By: [id number] Imaging Data Radiologist's Impression: Abdomen/Pelvis CT 06/09/22 19:44 Exam(s): CT ABDOMEN + PELVIS With Contrast IV Amt: 81 ml optiray EXAM: CT Abdomen and Pelvis With Intravenous Contrast CLINICAL HISTORY: Reason for exam: RUQ pain, nausea. TECHNIQUE: Axial computed tomography images of the abdomen and pelvis with intravenous contrast. CTDI is 36.41 mGy and DLP is 537.48 mGy-cm. Automated exposure control was utilized for the study. A dose lowering technique was utilized adhering to the principles of ALARA. CONTRAST: Patient received 81 ml optiray of IV contrast COMPARISON: No relevant prior studies available. FINDINGS: Lung bases: Unremarkable. No mass. No consolidation. Heart: Cardiomegaly. Prosthetic mitral valve. ABDOMEN: Liver: Unremarkable. No mass. Gallbladder and bile ducts: Cholecystectomy. No ductal dilation. Pancreas: Unremarkable. No mass. No ductal dilation. Spleen: Unremarkable. No splenomegaly. Adrenals: Unremarkable. No mass. Kidneys and ureters: Unremarkable. No hydronephrosis or delayed nephrogram. Stomach and bowel: Wall thickening of small bowel, correlate for mild enteritis. No small bowel obstruction. No free intraperitoneal air. PELVIS: Appendix: No findings to suggest acute appendicitis. Bladder: Unremarkable. No mass. Reproductive: Unremarkable as visualized. ABDOMEN and PELVIS: Intraperitoneal space: Unremarkable. No free air. No significant fluid collection. Bones/joints: Sternotomy wires. Degenerative changes of the spine. No acute fracture. No dislocation. Soft tissues: Unremarkable. Vasculature: Atherosclerotic changes of the aorta. No abdominal aortic aneurysm. Lymph nodes: Unremarkable. No enlarged lymph nodes. Tubes, lines and devices: Pacemaker leads. IMPRESSION: Wall thickening of small bowel, correlate for mild enteritis. No small bowel obstruction. No free intraperitoneal air. Electronically signed by: Floyd Huff MD 06/09/22 21:[address] 06/09/22 19:44 Exam(s): CT HEAD Without Contrast EXAM: CT Head Without Intravenous Contrast CLINICAL HISTORY: Reason for exam: anticoag, nausea, dizzy. TECHNIQUE: Axial computed tomography images of the head/brain without intravenous contrast. CTDI is 36.41 mGy and DLP is 537.48 mGy-cm. Automated exposure control was utilized for the study. A dose lowering technique was utilized adhering to the principles of ALARA. COMPARISON: No relevant prior studies available. FINDINGS: No acute intracranial hemorrhage. No midline shift or mass effect. The territorial cerna-white matter differentiation is maintained throughout. Age-related cerebral volume loss. Periventricular and subcortical white matter hypoattenuation, consistent with chronic microangiopathy. The visualized orbits appear grossly unremarkable. The calvarium is intact. The visualized paranasal sinuses and mastoid air cells are grossly clear. IMPRESSION: No acute intracranial hemorrhage, midline shift, or mass effect. Electronically signed by: Floyd Huff MD 06/09/22 21:34 PM Discharge Plan Visit Data Chief Complaint: Vomiting Stated Complaint: VOMITING, DIZZINESS ED Provider: Marc Engle Discharge Problem: Gastroenteritis, Abdominal pain, Elevated troponin I level Patient Disposition: Being Evaluated by Hospitalist Discharge Instructions Interventions: ED Discharge Assessment Last Done: 06/10/22 00:04 Forms Stand Alone Forms: [facility] Prescriptions Prescriptions: No Action nitroglycerin [Nitrostat] 0.4 mg Tablet, Sublingual 0.4 mg sublingual DIRECTED PRN (Reason: Chest Pain) Rx Instructions: PLACE ONE TABLET UNDER THE TONGUE EVERY 5 MINUTES FOR UP TO 3 DOSES OVER 15 MINUTES IF NEEDED FOR CHEST PAIN furosemide 20 mg Tablet See Rx Instructions .ROUTE .COMPLEX Rx Instructions: TAKE BY MOUTH ONE TABLET (20 MG) EVERY OTHER DAY ALTERNATING WITH TWO TABLETS (40 MG) EVERY OTHER DAY sertraline 50 mg tablet 50 mg PO QAM cholecalciferol (vitamin D3) [Vitamin D3] 25 mcg (1,000 unit) Tablet 50 mcg PO QAM metoprolol tartrate 25 mg tablet 50 mg PO AMHS digoxin 125 mcg (0.125 mg) Tablet 125 mcg PO QAM fluticasone propionate 50 mcg/actuation spray,suspension 1 spray INTRANASAL HS Rx Instructions: use in each nostril Jardiance 10 mg tablet 10 mg PO QAM warfarin 1 mg tablet 2 - 3 mg PO DAILY Rx Instructions: DIRECTED TO TAKE BY ANTICOAGULATION CLINIC/ rosuvastatin 5 mg Tablet 5 mg PO QAM metformin 500 mg Tablet Extended Release 24hr 500 mg PO PM aspirin [Aspirin Low-Strength] 81 mg Tablet,Delayed Release (Dr/Ec) 81 mg PO DAILY amoxicillin 500 mg capsule 2,000 mg PO ONCE PRN (Reason: Prophylaxis) Rx Instructions: take 4 capsules 1 hour prior to procedures Referrals Referrals: PCP,NO [Primary Care Provider] - Abdominal pain Qualifiers: Abdominal location: right upper quadrant Qualified Code(s): R10.11 - Right upper quadrant pain
[2022-06-09 20:41] LABS: Albumin Globulin Ratio 1.1 (0.9-2); Albumin Level 4.5 gm/dl (3.4-5.0); Bilirubin,Total 0.9 mg/dl (0.2-1.0); Calcium 10.5 mg/dl (8.6-10.3); Creatinine Clr Calc Pharmacy 39.4 ml/min; Est GFR (African American) 66.6 ml/min; Est GFR (Non-African American) 57.4 ml/min; Potassium 3.6 mmol/L (3.5-5.1); Total Protein 8.5 gm/dl (6.0-8.3)
[2022-06-09 20:51] LABS: INR 2.1 (0.9-1.1); Partial Thromboplastin Ratio 1.5; Prothrombin Time 21.9 Seconds (9.0-12.0)
[2022-06-09 20:52] LABS: Basophils # (auto) 0.06 K/uL (0-0.2); Basophils % (auto) 0.6 %; Eosinophils # (auto) 0.07 K/uL (0-0.50); Eosinophils % (auto) 0.6 %; Hematocrit (blood only) 43.8 % (37.0-47.0); Hemoglobin 14.7 g/dl (12.0-16.0); Immature Granulocytes # (auto) 0.04 K/uL (0.01-0.20); Immature Granulocytes % (auto) 0.4 %; Lymphocytes # (auto) 2.99 K/uL (1.2-3.4); Lymphocytes % (auto) 27.4 %; Mean Corpuscular Hemoglobin 28.5 pg (25.0-34.0); Mean Corpuscular Hgb Conc 33.6 g/dL (32.0-36.0); Mean Corpuscular Volume 84.9 fL (80.0-100.0); Mean Platelet Volume 11.1 fL (9.4-12.4); Monocytes # (auto) 0.94 K/uL (0.11-0.59); Monocytes % (auto) 8.6 %; Neutrophils % (auto) 62.4 %; Platelet Count 206 K/uL (130-400); RDW Standard Deviation 46.5 fL (36.4-46.3); Red Blood Count 5.16 M/uL (4.20-5.40); Troponin I High Sensitivity 107.7 pg/ml (0-14)
--- NOTE | 2022-06-09 21:35 | CT Scan Report ---
Exam(s): CT HEAD Without Contrast EXAM: CT Head Without Intravenous Contrast CLINICAL HISTORY: Reason for exam: anticoag, nausea, dizzy. TECHNIQUE: Axial computed tomography images of the head/brain without intravenous contrast. CTDI is 36.41 mGy and DLP is 537.48 mGy-cm. Automated exposure control was utilized for the study. A dose lowering technique was utilized adhering to the principles of ALARA. COMPARISON: No relevant prior studies available. FINDINGS: No acute intracranial hemorrhage. No midline shift or mass effect. The territorial cerna-white matter differentiation is maintained throughout. Age-related cerebral volume loss. Periventricular and subcortical white matter hypoattenuation, consistent with chronic microangiopathy. The visualized orbits appear grossly unremarkable. The calvarium is intact. The visualized paranasal sinuses and mastoid air cells are grossly clear. IMPRESSION: No acute intracranial hemorrhage, midline shift, or mass effect. Electronically signed by: Floyd Huff MD 06/09/22 21:34 PM
--- NOTE | 2022-06-09 21:38 | CT Scan Report ---
Exam(s): CT ABDOMEN + PELVIS With Contrast IV Amt: 81 ml optiray EXAM: CT Abdomen and Pelvis With Intravenous Contrast CLINICAL HISTORY: Reason for exam: RUQ pain, nausea. TECHNIQUE: Axial computed tomography images of the abdomen and pelvis with intravenous contrast. CTDI is 36.41 mGy and DLP is 537.48 mGy-cm. Automated exposure control was utilized for the study. A dose lowering technique was utilized adhering to the principles of ALARA. CONTRAST: Patient received 81 ml optiray of IV contrast COMPARISON: No relevant prior studies available. FINDINGS: Lung bases: Unremarkable. No mass. No consolidation. Heart: Cardiomegaly. Prosthetic mitral valve. ABDOMEN: Liver: Unremarkable. No mass. Gallbladder and bile ducts: Cholecystectomy. No ductal dilation. Pancreas: Unremarkable. No mass. No ductal dilation. Spleen: Unremarkable. No splenomegaly. Adrenals: Unremarkable. No mass. Kidneys and ureters: Unremarkable. No hydronephrosis or delayed nephrogram. Stomach and bowel: Wall thickening of small bowel, correlate for mild enteritis. No small bowel obstruction. No free intraperitoneal air. PELVIS: Appendix: No findings to suggest acute appendicitis. Bladder: Unremarkable. No mass. Reproductive: Unremarkable as visualized. ABDOMEN and PELVIS: Intraperitoneal space: Unremarkable. No free air. No significant fluid collection. Bones/joints: Sternotomy wires. Degenerative changes of the spine. No acute fracture. No dislocation. Soft tissues: Unremarkable. Vasculature: Atherosclerotic changes of the aorta. No abdominal aortic aneurysm. Lymph nodes: Unremarkable. No enlarged lymph nodes. Tubes, lines and devices: Pacemaker leads. IMPRESSION: Wall thickening of small bowel, correlate for mild enteritis. No small bowel obstruction. No free intraperitoneal air. Electronically signed by: Floyd Huff MD 06/09/22 21:37 PM
[2022-06-09 21:42] LABS: Appearance Urine Clear (Clear); Bilirubin Urine Negative (Negative); Blood Urine Negative (Negative); Color Urine Yellow; Glucose Urine UA 3+ (Negative); Ketones Urine 1+ (Negative); Leukocyte Esterase Urine Negative (Negative); Nitrite Urine Negative (Negative); Protein Urine Trace (Negative); Urobilinogen Urine Negative (Negative); pH Urine 5.5 (4.5-7.5)
[2022-06-09] MEDS ORDERED: SODIUM CHLORIDE 0.9% 1000ML 500 ML IV ONE (21:54)
[2022-06-09 21:57] LABS: Bacteria Urine Negative (Negative); Epithelial Cell Urine 0-5 /lpf (0-5); RBC Urine 0-4 /hpf (0-4)
--- NOTE | 2022-06-09 23:12 | History & Physical Report ---
Date of Service June 09, 2022 Assessment & Plan (1) Dizziness: Plan: Secondary to acute stomach upset Troponin elevation secondary to illness, tachycardia chronic diastolic heart failure (EF 60 to 65%, TTE 2021), patient on the dry side SSS status post PPM, hx MVR/AVR on Coumadin, paced rhythm, INR slightly subtherapeutic hx CAD status post CABG hypertension, BP on the lower side hyperlipidemia, on statin Rx DM2 on oral medications, well-controlled as of recent hemoglobin A1c of 6.7 last December 2021 hx NAFLD cirrhosis, no overt decompensation postsurgical hypothyroidism, thyroid despite not being on maintenance medications Mild hypercalcemia, consistently noted on outpatient blood work last year, hx primary hyperparathyroidism status post surgery; dehydration certainly contributory, rule out hypervitaminosis D anxiety/mood disorder, at baseline OBS Medical telemetry given troponin elevation Supportive management for viral enteritis, IVF for now Follow troponin, TTE with significant progression IVF for hypercalcemia, check vitamin D, hold vitamin D supplement for now basal bolus insulin, ISS BG goal 1 10-1 40, carb count coverage DVT prophylaxis. Coumadin INR goal between 2.5 and 3, may need IV heparin if INR still subtherapeutic tomorrow AM given mechanical MVR history DNR Text document was generated using Angelfish voice recognition software. It may contain grammatical or spelling errors. Kindly contact undersigned for clarification of any documentation item in question. History of Present Illness Chief Complaint: Nausea, dizziness, abdominal discomfort Primary Care Provider: Dr. Boswell History obtained from patient, family, and records. Medical history significant for chronic diastolic heart failure (EF 60 to 65%, TTE 2021 ), SSS status post PPM on Coumadin, CAD status post CABG, rheumatic heart disease status post surgery (mechanical MVR/AVR), mild TR, hypertension, hyperlipidemia, DM2 on oral medications, NAFLD cirrhosis, postsurgical hypothyroidism, primary hyperparathyroidism status post surgery, anxiety/mood disorder. Last confinement March 2021 for acute hyperglycemia. Today, patient noted sudden onset of abdominal discomfort, nausea, emesis symptoms without constipation/diarrhea symptoms. Subsequent dizziness. Patient denies chest pain, SOB. Patient suspects discomfort from trying out tap water from [place]. Patient brought to the ER for evaluation. Heart rate 105 upon arrival at the ER. 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 Allergies Allergy/AdvReac Type Severity Reaction Status Date / Time lidocaine Allergy Intermediate Rash/hives Verified 06/09/22 20:37 [From Aspercreme (lidocaine)] with cream Sulfa (Sulfonamide Allergy Intermediate Rash, hives Verified 06/09/22 20:37 Antibiotics) latex Allergy Unknown Wheezing Verified 06/09/22 20:37 levothyroxine AdvReac Intermediate Tachycardia Verified 06/09/22 20:37 Home Medications Medication Instructions Recorded Confirmed Type furosemide 20 mg tablet See Rx Instructions .Route .COMPLEX 05/27/18 06/09/22 History nitroglycerin 0.4 mg sublingual 0.4 mg sublingual DIRECTED PRN 05/27/18 06/09/22 History tablet (Nitrostat) Chest Pain sertraline 50 mg tablet 50 mg PO QAM 04/05/20 06/09/22 History digoxin 125 mcg (0.125 mg) tablet 125 mcg PO QAM 08/14/20 06/09/22 History metoprolol tartrate 25 mg tablet 50 mg PO AMHS 08/14/20 06/09/22 History cholecalciferol (vitamin D3) 25 50 mcg PO QAM 03/08/21 06/09/22 History mcg (1,000 unit) tablet (Vitamin D3) amoxicillin 500 mg capsule 2,000 mg PO ONCE PRN Prophylaxis 06/09/22 06/09/22 History aspirin 81 mg tablet,delayed 81 mg PO DAILY 06/09/22 06/09/22 History release empagliflozin 10 mg tablet 10 mg PO QAM 06/09/22 06/09/22 History (Jardiance) fluticasone propionate 50 1 spray intranasal HS 06/09/22 06/09/22 History mcg/actuation nasal spray,suspension metformin 500 mg tablet,extended 500 mg PO PM 06/09/22 06/09/22 History release 24hr rosuvastatin 5 mg tablet 5 mg PO QAM 06/09/22 06/09/22 History warfarin 1 mg tablet 2 - 3 mg PO DAILY 06/09/22 06/09/22 History Past Med/Surg History Medical History (Updated 06/10/22 @ 06:14 by Diaz Chaves MD) Anticoagulation goal of INR 2.5 to 3.5 Anxiety Atrial fibrillation follows with Dr. Almeida; h/o mult cardioversions; on warfarin Atrial flutter CAD (coronary artery disease) Rheumatic heart disease, on March 04, 2002 patient underwent aortic valve replacement and mitral valve replacement along with CABG x3 with a KIRK to the LAD, right internal mammary artery anastomosis as a free graft to the RCA and a single saphenous vein graft to the diagonal coronary artery and radiofrequency ablation of atrial fibrillation pathways at [facility]. 01/2011 admitted to [facility] secondary to symptomatically A. fib flutter which patient underwent DCCV. Sotalol was started but stopped due to intolerance secondary to nausea and bradycardia. July 2011 Tikosyn loading and successful repeat DCCV. 01/08/12 underwent cardiac catheterization at [facility] and remained on warfarin. Noted to have single-vessel disease 70% mid LAD, 2 of the 3 bypasses were patent. There was obstruction of the SVG to diagonal however, the [place] diagonal had no significant obstruction. 12/24/12 hospitalized at [facility] and underwent redo of mechanical MVR By Dr. Manley. Postop day flutter noted. Tikosyn was discontinued and sent home on amiodarone and metoprolol. 05/3015 admitted to [facility] secondary to symptomatically flutter and tikosyn re-initiated. 11/2015 admitted to [facility] secondary to recurrent symptomatic paroxysmal atrial flutter with RVR, status post DCCV. CKD (chronic kidney disease), stage II pt denies. 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; tachy-lindy syndrome; [employer]; last checked 1 mo ago Paroxysmal atrial flutter Rheumatic heart disease Surgical History (Updated 03/08/21 @ 17:55 by GEOFFREY Caban) H/O esophagogastroduodenoscopy History of bilateral breast reduction surgery History of bilateral tubal ligation History of cardiac cath 2002 & ~[facility] History of cataract surgery bilateral History of cholecystectomy History of colonoscopy History of partial thyroidectomy History of tonsillectomy Hx of appendectomy Hx of CABG x3 vessels (2002) at [facility] S/P AVR (aortic valve replacement) "Mechanical 2002 On 05/25/15 15:41 Mel Quevedo wrote "Mechanical 2002" S/P cholecystectomy S/P MVR (mitral valve replacement) "Mechanical 2002" plus a revision 2012 S/P NELLY (total abdominal hysterectomy) LSO Family History Mother Colorectal cancer Father FHx: bladder cancer Other No family history of adverse response to anesthesia Social History Smoking Status: Never smoker Second Hand Exposure: No; Do You Dip or Chew Tobacco: No; Tobacco Cessation Education Requested by Patient: No Hx Alcohol Use: Yes (stopped after pacemaker) Hx Substance Use: No Preferred Language: Croatian Communication Ability: Effective Receiving Operator Required: No Beliefs That Will Affect Care: None Current Living Situation: Alone Current Living Situation Comment: [facility] (independent living) Other Information That Helps Us Care for You: No Feels Safe at Home: Yes Safety Concerns: Feels Safe At This Time Assistive Devices: Denture - Upper, Glasses, Hearing Aid - Bilateral and Walker Review of Systems Review of Systems: As per HPI, all other systems reviewed and negative Physical Exam Physical Exam: GENERAL: Comfortable pleasant, slightly hard of hearing, no respiratory distress SKIN: Normal color, warm HEENT: [place] palpebral conjunctivae, no ptosis, dry buccal mucosa NECK : Supple, no tenderness CHEST : CTA, no tenderness HEART : RRR, mechanical murmur appreciated ABDOMEN: Some distention, minimal central abdominal tenderness EXTREMITIES : No LE swelling/tenderness, no other conspicuous deformities noted NEUROLOGIC : Coherent, no facial asymmetry, slightly hard of hearing, no other gross focality Results & Data Results & Data Vital Signs (Past 12 Hours) Vital Signs Temp Pulse Resp BP Pulse Ox O2 Del Method 06/09/22 23:00 68 24 06/09/22 23:00 101/68 06/09/22 22:30 68 15 96 Room Air 06/09/22 22:30 111/68 06/09/22 22:00 68 19 97 Room Air 06/09/22 22:00 126/70 06/09/22 21:51 114/55 L 06/09/22 21:51 71 15 96 06/09/22 21:30 83 21 97 06/09/22 21:30 118/70 06/09/22 21:00 68 17 100 Room Air 06/09/22 21:00 117/67 06/09/22 20:30 68 15 99 Room Air 06/09/22 20:30 133/72 06/09/22 20:00 72 19 99 Room Air 06/09/22 19:57 124/76 06/09/22 19:57 74 16 94 Room Air 06/09/22 19:48 148/67 H 06/09/22 19:48 73 15 99 Room Air 06/09/22 19:47 125/84 06/09/22 19:47 80 18 98 06/09/22 19:43 88 17 97 Room Air 06/09/22 19:42 153/75 H 06/09/22 19:42 36.4 C L 105 H 18 125/83 100 Room Air 06/09/22 19:42 89 Laboratory Results Laboratory Results WBC 10.90 K/ul (4.8-10.8) H 06/09/22 19:50 RBC 5.16 M/uL (4.20-5.40) 06/09/22 19:50 Hgb 14.7 g/dl (12.0-16.0) 06/09/22 19:50 Hct 43.8 % (37.0-47.0) 06/09/22 19:50 MCV 84.9 fL (80.0-100.0) 06/09/22 19:50 MCH 28.5 pg (25.0-34.0) 06/09/22 19:50 MCHC 33.6 g/dL (32.0-36.0) 06/09/22 19:50 RDW Std Deviation 46.5 fL (36.4-46.3) H 06/09/22 19:50 RDW Coeff of Tammi 15.0 % (11.5-14.5) H 06/09/22 19:50 Plt Count 206 K/uL (130-400) 06/09/22 19:50 MPV 11.1 fL (9.4-12.4) 06/09/22 19:50 Immature Gran % (Auto) 0.4 % 06/09/22 19:50 Neut % (Auto) 62.4 % 06/09/22 19:50 Lymph % (Auto) 27.4 % 06/09/22 19:50 [place] % (Auto) 8.6 % 06/09/22 19:50 Eos % (Auto) 0.6 % 06/09/22 19:50 Baso % (Auto) 0.6 % 06/09/22 19:50 Neut # (Auto) 6.80 K/uL (1.40-6.50) H 06/09/22 19:50 Lymph # (Auto) 2.99 K/uL (1.2-3.4) 06/09/22 19:50 [place] # (Auto) 0.94 K/uL (0.11-0.59) H 06/09/22 19:50 Eos # (Auto) 0.07 K/uL (0-0.50) 06/09/22 19:50 Baso # (Auto) 0.06 K/uL (0-0.2) 06/09/22 19:50 Immature Gran # (Auto) 0.04 K/uL (0.01-0.20) 06/09/22 19:50 PT 21.9 Seconds (9.0-12.0) H 06/09/22 19:50 INR 2.1 (0.9-1.1) H 06/09/22 19:50 APTT 41.0 Seconds (21.0-31.0) H 06/09/22 19:50 PTT Ratio 1.5 06/09/22 19:50 Sodium 135 mmol/L (136-145) L 06/09/22 19:50 Potassium 3.6 mmol/L (3.5-5.1) 06/09/22 19:50 Chloride 100 mmol/L (98-107) 06/09/22 19:50 Carbon Dioxide 24 mmol/L (21-32) 06/09/22 19:50 Anion Gap 11 (3-11) 06/09/22 19:50 BUN 25 mg/dl (6-23) H 06/09/22 19:50 Creatinine 0.96 mg/dl (0.6-1.2) 06/09/22 19:50 Est Cr Clr Drug Dosing 39.4 ml/min 06/09/22 19:50 Est GFR ( Amer) 66.6 ml/min 06/09/22 19:50 Est GFR (Non-Af Amer) 57.4 ml/min 06/09/22 19:50 BUN/Creatinine Ratio 26.0 (10-20) H 06/09/22 19:50 Glucose 179 mg/dl (70-99(Fasting)) H 06/09/22 19:50 Calcium 10.5 mg/dl (8.6-10.3) H 06/09/22 19:50 Total Bilirubin 0.9 mg/dl (0.2-1.0) 06/09/22 19:50 AST 39 U/L (13-39) 06/09/22 19:50 ALT 21 U/L (7-52) 06/09/22 19:50 Alkaline Phosphatase 60 U/L (34-104) 06/09/22 19:50 Troponin I High Sens 107.7 pg/ml (0-14) H* 06/09/22 19:50 Total Protein 8.5 gm/dl (6.0-8.3) H 06/09/22 19:50 Albumin 4.5 gm/dl (3.4-5.0) 06/09/22 19:50 Globulin 4.0 gm/dl (2.5-4.0) 06/09/22 19:50 Albumin/Globulin Ratio 1.1 (0.9-2) 06/09/22 19:50 Lipase 41 U/L (11-82) 06/09/22 19:50 Urine Color Yellow 06/09/22 21:20 Urine Appearance Clear (Clear) 06/09/22 21:20 Urine pH 5.5 (4.5-7.5) 06/09/22 21:20 Ur Specific [place] 1.010 (1.000-1.030) 06/09/22 21:20 Urine Protein Trace (Negative) H 06/09/22 21:20 Urine Glucose (UA) 3+ (Negative) H 06/09/22 21:20 Urine Ketones 1+ (Negative) H 06/09/22 21:20 Urine Blood Negative (Negative) 06/09/22 21:20 Urine Nitrite Negative (Negative) 06/09/22 21:20 Urine Bilirubin Negative (Negative) 06/09/22 21:20 Urine Urobilinogen Negative (Negative) 06/09/22 21:20 Ur Leukocyte Esterase Negative (Negative) 06/09/22 21:20 Urine RBC 0-4 /hpf (0-4) 06/09/22 21:20 Urine WBC 10-30 /hpf (0-5) H 06/09/22 21:20 Ur Epithelial Cells 0-5 /lpf (0-5) 06/09/22 21:20 Urine Bacteria Negative (Negative) 06/09/22 21:20 Digoxin 0.5 ng/ml (0.8-2.0) L 06/09/22 19:52 SARS-CoV-2, RNA, NAAT NEGATIVE (NEGATIVE) 06/09/22 20:22 Impressions Abdomen/Pelvis CT 06/09/22 19:44 Exam(s): CT ABDOMEN + PELVIS With Contrast IV Amt: 81 ml optiray EXAM: CT Abdomen and Pelvis With Intravenous Contrast CLINICAL HISTORY: Reason for exam: RUQ pain, nausea. TECHNIQUE: Axial computed tomography images of the abdomen and pelvis with intravenous contrast. CTDI is 36.41 mGy and DLP is 537.48 mGy-cm. Automated exposure control was utilized for the study. A dose lowering technique was utilized adhering to the principles of ALARA. CONTRAST: Patient received 81 ml optiray of IV contrast COMPARISON: No relevant prior studies available. FINDINGS: Lung bases: Unremarkable. No mass. No consolidation. Heart: Cardiomegaly. Prosthetic mitral valve. ABDOMEN: Liver: Unremarkable. No mass. Gallbladder and bile ducts: Cholecystectomy. No ductal dilation. Pancreas: Unremarkable. No mass. No ductal dilation. Spleen: Unremarkable. No splenomegaly. Adrenals: Unremarkable. No mass. Kidneys and ureters: Unremarkable. No hydronephrosis or delayed nephrogram. Stomach and bowel: Wall thickening of small bowel, correlate for mild enteritis. No small bowel obstruction. No free intraperitoneal air. PELVIS: Appendix: No findings to suggest acute appendicitis. Bladder: Unremarkable. No mass. Reproductive: Unremarkable as visualized. ABDOMEN and PELVIS: Intraperitoneal space: Unremarkable. No free air. No significant fluid collection. Bones/joints: Sternotomy wires. Degenerative changes of the spine. No acute fracture. No dislocation. Soft tissues: Unremarkable. Vasculature: Atherosclerotic changes of the aorta. No abdominal aortic aneurysm. Lymph nodes: Unremarkable. No enlarged lymph nodes. Tubes, lines and devices: Pacemaker leads. IMPRESSION: Wall thickening of small bowel, correlate for mild enteritis. No small bowel obstruction. No free intraperitoneal air. Electronically signed by: Floyd Huff MD 06/09/22 21:[address] 06/09/22 19:44 Exam(s): CT HEAD Without Contrast EXAM: CT Head Without Intravenous Contrast CLINICAL HISTORY: Reason for exam: anticoag, nausea, dizzy. TECHNIQUE: Axial computed tomography images of the head/brain without intravenous contrast. CTDI is 36.41 mGy and DLP is 537.48 mGy-cm. Automated exposure control was utilized for the study. A dose lowering technique was utilized adhering to the principles of ALARA. COMPARISON: No relevant prior studies available. FINDINGS: No acute intracranial hemorrhage. No midline shift or mass effect. The territorial cerna-white matter differentiation is maintained throughout. Age-related cerebral volume loss. Periventricular and subcortical white matter hypoattenuation, consistent with chronic microangiopathy. The visualized orbits appear grossly unremarkable. The calvarium is intact. The visualized paranasal sinuses and mastoid air cells are grossly clear. IMPRESSION: No acute intracranial hemorrhage, midline shift, or mass effect. Electronically signed by: Floyd Huff MD 06/09/22 21:34 PM Diagnostic Findings Chest x-ray as per my interpretation cardiomegaly, pacemaker, no congestion EKG as per my interpretation : Rate 80, paced rhythm
[2022-06-09] MEDS ORDERED: PROMETHAZINE HCL 6.25 MG in SODIUM CHLORIDE 0.9% 50 ML IV PRN (23:15)
[2022-06-09] MEDS ORDERED: ACETAMINOPHEN SUSP 325 MG/10.15 ML UDC PO STA (23:15)
[2022-06-09] MEDS ORDERED: NSS + 20MEQ KCL 20 MEQ/1,000 ML BAG IV ONE (23:16)
[2022-06-10] MEDS ORDERED: ACETAMINOPHEN 325 MG TAB PO STA (00:17)
[2022-06-10] MEDS ORDERED: GLUCOSE 10 TAB/TUBE PO PRN (00:40)
[2022-06-10] MEDS ORDERED: GLUCOSE 40% GEL 15 GM TUBE PO PRN (00:40)
[2022-06-10] MEDS ORDERED: GLUCAGON FOR INJ 1 MG VIAL SQ PRN (00:40)
[2022-06-10] MEDS ORDERED: CARBOHYDRATES FOR HYPOGLYCEMIA PO PRN (00:40)
[2022-06-10] MEDS ORDERED: DEXTROSE 50% 50 ML SYRINGE IV PRN (00:40)
[2022-06-10 00:51] LABS: Phosphorus 2.8 mg/dl (2.5-4.9)
[2022-06-10] MEDS: INSULIN ASPART PER UNIT CHARGE SC SCH ×5 (02:04→20:18)
[2022-06-10] MEDS ORDERED: WARFARIN SOD 2.5 MG TAB PO STA (02:47)
[2022-06-10 06:13] LABS: Basophils # (auto) 0.04 K/uL (0-0.2); Basophils % (auto) 0.4 %; Eosinophils # (auto) 0.06 K/uL (0-0.50); Eosinophils % (auto) 0.6 %; Hematocrit (blood only) 40.3 % (37.0-47.0); Hemoglobin 13.7 g/dl (12.0-16.0); Immature Granulocytes # (auto) 0.04 K/uL (0.01-0.20); Immature Granulocytes % (auto) 0.4 %; Lymphocytes # (auto) 3.32 K/uL (1.2-3.4); Lymphocytes % (auto) 32.9 %; Mean Corpuscular Hemoglobin 28.7 pg (25.0-34.0); Mean Corpuscular Volume 84.3 fL (80.0-100.0); Mean Platelet Volume 11.6 fL (9.4-12.4); Monocytes # (auto) 1.04 K/uL (0.11-0.59); Monocytes % (auto) 10.3 %; Neutrophils # (auto) 5.58 K/uL (1.40-6.50); Neutrophils % (auto) 55.4 %; Platelet Count 200 K/uL (130-400); RDW Coefficient of Variation 15.1 % (11.5-14.5); RDW Standard Deviation 45.9 fL (36.4-46.3); Red Blood Count 4.78 M/uL (4.20-5.40); White Blood Count 10.08 K/ul (4.8-10.8)
[2022-06-10 06:23] LABS: BUN Creatinine Ratio 25.7 (10-20); Calcium 9.6 mg/dl (8.6-10.3); Creatinine Clr Calc Pharmacy 51.2 ml/min; Est GFR (African American) 91.2 ml/min; Est GFR (Non-African American) 78.7 ml/min; Potassium 3.6 mmol/L (3.5-5.1)
[2022-06-10 06:35] LABS: INR 1.8 (0.9-1.1); Prothrombin Time 18.3 Seconds (9.0-12.0)
[2022-06-10 06:38] LABS: Troponin I High Sensitivity 725.4 pg/ml (0-14)
--- NOTE | 2022-06-10 07:18 | XRay Report ---
SINGLE VIEW CHEST CLINICAL HISTORY: Hyponatremia. FINDINGS: An AP, portable, upright chest radiograph is compared to study dated 03/08/2021. A single gemma d cardiac pacemaker is unchanged in position. The patient is status post midline sternotomy and cardi ac valve surgery. The heart is enlarged noting atherosclerotic calcification of the thoracic aorta. T he pulmonary vasculature is noncongested. Chronic interstitial thickening is similar to previous. Sca rring/atelectasis is noted at the lung bases. The lungs and pleural spaces are otherwise clear. No pn eumothorax is seen. The skeletal structures are osteopenic. The bony thorax is grossly intact. Cholec ystectomy clips are noted in the right upper quadrant. IMPRESSION: 1. Cardiomegaly and cardiac pacemaker without radiographic evidence of congestive failure. 2. No airspace consolidation or large pleural effusion is identified. ACT 112: Negative or not required by law. Electronically signed by: Madhu Norwood M.D. 06/10/2022 7:17 AM
[2022-06-10] MEDS ORDERED: Heparin IV Adult Wt-Based Standard *NO* Bolus Protocol IV ONE (07:42)
[2022-06-10] MEDS ORDERED: WARFARIN SOD 5 MG TAB PO ONE (07:42)
[2022-06-10] MEDS ORDERED: HEPARIN SODIUM/DEXTROSE 25,000 UNITS/500 ML BAG IV SCH (08:00)
[2022-06-10 08:26] LABS: Partial Thromboplastin Ratio 1.5; Partial Thromboplastin Time 41.2 Seconds (21.0-31.0)
[2022-06-10] MEDS: LANTUS PER UNIT CHARGE SQ SCH (08:46)
[2022-06-10] MEDS: ACETAMINOPHEN 325 MG TAB PO PRN (08:52)
[2022-06-10] MEDS: METOPROLOL TARTRATE 50 MG TAB PO SCH ×2 (08:54→20:14)
[2022-06-10] MEDS: ROSUVASTATIN CALCIUM 5 MG TAB PO SCH (08:54)
[2022-06-10] MEDS: SERTRALINE HCL 50 MG TABLET PO SCH (08:54)
[2022-06-10] MEDS: ASPIRIN 81 MG ECTAB PO SCH (08:54)
[2022-06-10] MEDS ORDERED: PROMETHAZINE HCL 12.5 MG in SODIUM CHLORIDE 0.9% 50 ML IV PRN (10:30)
[2022-06-10 15:22] LABS: Partial Thromboplastin Ratio 2.6
[2022-06-10 15:52] LABS: Partial Thromboplastin Time 71.7 Seconds (21.0-31.0)
[2022-06-10] MEDS: DIGOXIN 0.125 MG TAB PO SCH (15:59)
--- NOTE | 2022-06-10 16:30 | Hospitalist Progress Note ---
Date of Service June 10, 2022 Assessment & Plan (1) Dizziness: Plan: Likely secondary to dehydration which is due to gastroenteritis CT of the head was unremarkable Clinically better since admission Will get orthostatic vitals Minimal amount of IV fluid We will monitor kidney function and electrolyte (2) Gastroenteritis: Plan: We will get a stool for culture and C. difficile Clinically better (3) Elevated troponin I level: Plan: Noted to have elevated troponin on admission Likely secondary to demand ischemia from tachycardia and history of heart failure Serial troponins are unremarkable Doubt any ACS (4) Subtherapeutic anticoagulation: Plan: INR was noted to be subtherapeutic at 1.8 Intravenous heparin was administered INR should be maintained between 2.5-3.5 given mitral and aortic valve replacement status We will increase the dose of Coumadin (5) Tachycardia-bradycardia syndrome: Plan: Status post pacemaker (6) Anticoagulation goal of INR 2.5 to 3.5: Plan: As above (7) S/P AVR (aortic valve replacement): (8) S/P MVR (mitral valve replacement): Plan: No cardiac symptoms (9) Atrial fibrillation: Plan: Has an episode of atrial fibrillation with RVR Very short-lived Was seen by fluoroscope operator No further recommendation except keep INR between 2.5-3.5 Other chronic medical conditions are as follows: Chronic diastolic heart failure (EF 60 to 65%, TTE 2021), patient on the dry side Hx CAD status post CABG-no cardiac symptoms Hypertension, BP on the lower side Hyperlipidemia, on statin Rx DM2 on oral medications, well-controlled as of recent hemoglobin A1c of 6.7 last December 2021 Hx NAFLD cirrhosis, no overt decompensation Postsurgical hypothyroidism, thyroid despite not being on maintenance medications Mild hypercalcemia, consistently noted on outpatient blood work last year, hx primary hyperparathyroidism status post surgery; dehydration certainly contributory, rule out hypervitaminosis D Anxiety/mood disorder, at baseline DVT prophylaxis IV heparin plus Coumadin Maintain INR between 2.5-3.5 CODE STATUS DNR/DNI Admission and Anticipated Discharge Date Admission Date: June 09, 2022 Subjective 06/10/2022 The patient was seen and examined in medical telemetry unit Has significant cardiac disease including mitral valve repair, PPM and diastolic heart failure and was admitted with dizziness and noted to have elevated troponin Has been feeling much better since admission Has had 1 episode of arrhythmia but that resolved subsequently Incidentally was seen by Dr. Grossman as well Review of Systems Review of Systems: All systems reviewed and are unremarkable except as noted below Respiratory: No shortness of breath at rest Cardiovascular: Additional Comments: No more palpitation and/or chest pain Physical Exam Physical Exam: Lying in bed comfortably Constitutional: + ill appearing and average body habitus Eyes: PERRL, conjunctivae normal, anicteric sclerae ENMT: external ear and nose normal, oropharynx normal Neck: trachea midline, no thyromegaly Respiratory: no respiratory distress Auscultation: + diminished lung sounds and + crackles (Minimal crackles at the bases) Cardiovascular: Rate/Rhythm: + tachycardic; + abnormal rate and + abnormal rhythm Heart Sounds: normal S1, normal S2 and + murmur Extremities: + edema (Trace edema bilaterally) Gastrointestinal (Abdomen): Inspection/Auscultation: normal bowel sounds; abdomen not distended Percussion/Palpation: abdomen soft; abdomen nontender Musculoskeletal: No acute arthritis involving any joint Neurologic: Alert and awake. Generally weak and lethargic Lymphatic: no cervical or axillary lymphadenopathy Results & Data Results & Data Vital Signs (Past 12 Hours) Vital Signs Temp Pulse Pulse Resp BP Pulse Ox O2 Del Method 06/10/22 15:59 95 H 06/10/22 14:18 60 06/10/22 15:15 36.3 C L 61 18 113/69 97 Room Air 06/10/22 12:00 36.9 C 67 18 113/69 92 Room Air 06/10/22 08:00 36.3 C L 65 18 100/65 99 Room Air 06/10/22 06:42 65 Laboratory Results Short CBC 06/09/22 06/10/22 Range/Units 19:50 05:35 WBC 10.90 H 10.08 (4.8-10.8) K/ul Hgb 14.7 13.7 (12.0-16.0) g/dl Hct 43.8 40.3 (37.0-47.0) % Plt Count 206 200 (130-400) K/uL BMP 06/09/22 06/10/22 19:50 05:35 Sodium 135 L 137 Potassium 3.6 3.6 Chloride 100 105 Carbon Dioxide 24 24 BUN 25 H 19 Creatinine 0.96 0.74 Glucose 179 H 137 H Calcium 10.5 H 9.6 Liver Function 06/09/22 Range/Units 19:50 Total Bilirubin 0.9 (0.2-1.0) mg/dl AST 39 (13-39) U/L ALT 21 (7-52) U/L Alkaline Phosphatase 60 (34-104) U/L Albumin 4.5 (3.4-5.0) gm/dl Urine 06/09/22 Range/Units 21:20 Urine Color Yellow Urine Appearance Clear (Clear) Urine pH 5.5 (4.5-7.5) Ur Specific Larue 1.010 (1.000-1.030) Urine Protein Trace H (Negative) Urine Glucose (UA) 3+ H (Negative) Medications Administered Current Inpatient Medications Acetaminophen (Acetaminophen 325 Mg Tab) 325 mg PO Q6H PRN PRN Reason: Mild Pain (Scale 1, 2, 3) Stop: 07/10/22 00:39 Last Admin: 06/10/22 08:52 Dose: 325 mg Aspirin (Aspirin 81 Mg Ectab) 81 mg PO DAILY [facility] Stop: 07/10/22 08:59 Last Admin: 06/10/22 08:54 Dose: 81 mg Dextrose (Dextrose 50% 50 Ml Syringe) 25 - 50 ml IV UD PRN; Protocol PRN Reason: Hypoglycemia Protocol Stop: 07/10/22 00:39 Digoxin (Digoxin 0.125 Mg Tab) 0.125 mg PO DAILY@1600 [facility] Stop: 07/10/22 15:59 Last Admin: 06/10/22 15:59 Dose: 0.125 mg Fluticasone Propionate (Fluticasone Propionate Na Spr 16 Gm Btl) 1 sprays NA HS [facility] Stop: 07/10/22 20:59 Glucagon (Glucagon For Inj 1 Mg Vial) 1 mg SQ UD PRN; Protocol PRN Reason: Hypoglycemia Protocol Stop: 07/10/22 00:39 Glucose (Glucose 10 Tab/Tube) 4 - 8 tab PO UD PRN; Protocol PRN Reason: Hypoglycemia Treatment Stop: 07/10/22 00:39 Glucose (Glucose 40% Gel 15 Gm Tube) 15 - 30 gm PO UD PRN; Protocol PRN Reason: Hypoglycemia Protocol Stop: 07/10/22 00:39 Heparin Sodium/Dextrose (Heparin Sodium/Dextrose) 25,000 units in 500 mls @ 18 mls/hr IV .Q24H ARACELI; Protocol Stop: 07/10/22 07:59 Last Titration: 06/10/22 15:57 Dose: 900 units/hr, 18 mls/hr Promethazine HCl 12.5 mg/ (Sodium Chloride) 50.5 mls @ 201 mls/hr IV Q6H PRN PRN Reason: Nausea And Vomiting Stop: 07/09/22 23:14 Last Infusion: 06/10/22 10:59 Dose: Infused Insulin Aspart (Insulin Aspart Per Unit Charge) 0 units SC ACHS [facility] Stop: 07/10/22 00:39 Last Admin: 06/10/22 11:59 Dose: 4 units Insulin Glargine (Lantus Per Unit Charge) 5 units SQ DAILY [facility] Stop: 07/10/22 08:59 Last Admin: 06/10/22 08:46 Dose: 5 units Metoprolol Tartrate (Metoprolol Tartrate 50 Mg Tab) 50 mg PO BID [facility] Stop: 07/10/22 08:59 Last Admin: 06/10/22 08:54 Dose: 50 mg Miscellaneous (Carbohydrates For Hypoglycemia ) 15 - 30 gm PO UD PRN PRN Reason: Hypoglycemia Protocol Stop: 07/10/22 00:39 Rosuvastatin Calcium (Rosuvastatin Calcium 5 Mg Tab) 5 mg PO QAM [facility] Stop: 07/10/22 08:59 Last Admin: 06/10/22 08:54 Dose: 5 mg Sertraline HCl (Sertraline Hcl 50 Mg Tablet) 50 mg PO QAM [facility] Stop: 07/10/22 08:59 Last Admin: 06/10/22 08:54 Dose: 50 mg
[2022-06-10] MEDS ORDERED: LACTATED RINGER'S 1,000 ML IV ONE (20:01)
[2022-06-10] MEDS: FLUTICASONE PROPIONATE NA SPR 16 GM BTL SCH (20:14)
[2022-06-10] MEDS: LORazepam 0.5 MG TAB PO PRN (21:19)
[2022-06-10 23:34] LABS: Partial Thromboplastin Ratio 3.4
[2022-06-10 23:41] LABS: Partial Thromboplastin Time 94.8 Seconds (21.0-31.0)
--- NOTE | 2022-06-11 06:21 | Electrocardiogram Report ---
Test Reason : Blood Pressure : / mmHG Vent. Rate : 078 BPM Atrial Rate : 326 BPM P-R Int : 000 ms QRS Dur : 198 ms QT Int : 486 ms P-R-T Axes : 000 -71 106 degrees QTc Int : 554 ms Poor data quality, interpretation may be adversely affected Ventricular-paced rhythm Abnormal ECG When compared with ECG of 08-MAR-2021 13:29, No significant change was found Confirmed by Zac Grossman [id number]) on 06/11/2022 6:21:09 AM Referred By: REFERRED SELF Confirmed By:Zac Grossman
[2022-06-11 07:19] LABS: Basophils # (auto) 0.07 K/uL (0-0.2); Eosinophils # (auto) 0.12 K/uL (0-0.50); Eosinophils % (auto) 1.7 %; Hemoglobin 13.6 g/dl (12.0-16.0); Immature Granulocytes # (auto) 0.02 K/uL (0.01-0.20); Immature Granulocytes % (auto) 0.3 %; Lymphocytes # (auto) 2.11 K/uL (1.2-3.4); Lymphocytes % (auto) 30.1 %; Mean Corpuscular Hemoglobin 28.8 pg (25.0-34.0); Mean Corpuscular Hgb Conc 33.2 g/dL (32.0-36.0); Mean Corpuscular Volume 86.7 fL (80.0-100.0); Mean Platelet Volume 11.1 fL (9.4-12.4); Monocytes # (auto) 0.76 K/uL (0.11-0.59); Monocytes % (auto) 10.9 %; Neutrophils # (auto) 3.92 K/uL (1.40-6.50); Platelet Count 158 K/uL (130-400); RDW Coefficient of Variation 15.5 % (11.5-14.5); RDW Standard Deviation 49.3 fL (36.4-46.3); Red Blood Count 4.73 M/uL (4.20-5.40)
[2022-06-11 07:22] LABS: BUN Creatinine Ratio 24.2 (10-20); Calcium 9.1 mg/dl (8.6-10.3); Creatinine Clr Calc Pharmacy 57.4 ml/min; Est GFR (African American) 99.5 ml/min; Est GFR (Non-African American) 85.8 ml/min; Magnesium 1.9 mg/dl (1.7-2.4); Potassium 3.9 mmol/L (3.5-5.1)
[2022-06-11 07:31] LABS: INR 2.6 (0.9-1.1); Prothrombin Time 26.7 Seconds (9.0-12.0)
[2022-06-11 07:47] LABS: Partial Thromboplastin Ratio 3.3
[2022-06-11] MEDS: ROSUVASTATIN CALCIUM 5 MG TAB PO SCH (08:06)
[2022-06-11] MEDS: SERTRALINE HCL 50 MG TABLET PO SCH (08:06)
[2022-06-11] MEDS: METOPROLOL TARTRATE 50 MG TAB PO SCH ×2 (08:06→20:30)
[2022-06-11] MEDS: ASPIRIN 81 MG ECTAB PO SCH (08:06)
[2022-06-11 08:09] LABS: Partial Thromboplastin Time 90.6 Seconds (21.0-31.0)
[2022-06-11] MEDS: INSULIN ASPART PER UNIT CHARGE SC SCH ×4 (09:10→20:29)
[2022-06-11] MEDS: ACETAMINOPHEN 325 MG TAB PO PRN (09:10)
[2022-06-11] MEDS: LANTUS PER UNIT CHARGE SQ SCH (09:10)
--- NOTE | 2022-06-11 14:32 | Hospitalist Progress Note ---
Date of Service June 11, 2022 Assessment & Plan (1) Dizziness: Plan: Likely secondary to dehydration which is due to gastroenteritis CT of the head was unremarkable Clinically better since admission Will get orthostatic vitals-significant orthostasis noted Minimal amount of IV fluid Electrolytes have been normalized with normal kidney function (2) Gastroenteritis: Plan: We will get a stool for culture and C. difficile Clinically better Stool is negative for C. difficile and cultures have been negative too Has abdominal pain likely secondary to mild enteritis (3) Elevated troponin I level: Plan: Noted to have elevated troponin on admission Likely secondary to demand ischemia from tachycardia and history of heart fail ure Serial troponins are unremarkable Doubt any ACS Denies any more chest pain and/or palpitation (4) Subtherapeutic anticoagulation: Plan: INR was noted to be subtherapeutic at 1.8 Intravenous heparin was administered INR should be maintained between 2.5-3.5 given mitral and aortic valve replacement status We will increase the dose of Coumadin INR is 2.6 today and will start with 4 mg Coumadin daily and monitor INR while in the hospital (5) Tachycardia-bradycardia syndrome: Plan: Status post pacemaker (6) Anticoagulation goal of INR 2.5 to 3.5: Plan: As above (7) S/P AVR (aortic valve replacement): (8) S/P MVR (mitral valve replacement): Plan: No cardiac symptoms (9) Atrial fibrillation: Plan: Has an episode of atrial fibrillation with RVR Very short-lived Was seen by paedodontist No further recommendation except keep INR between 2.5-3.5 Rate remains controlled Other chronic medical conditions are as follows: Chronic diastolic heart failure (EF 60 to 65%, TTE 2021), patient on the dry side Hx CAD status post CABG-no cardiac symptoms Hypertension, BP on the lower side Hyperlipidemia, on statin Rx DM2 on oral medications, well-controlled as of recent hemoglobin A1c of 6.7 last December 2021 Hx NAFLD cirrhosis, no overt decompensation Postsurgical hypothyroidism, thyroid despite not being on maintenance medications Mild hypercalcemia, consistently noted on outpatient blood work last year, hx primary hyperparathyroidism status post surgery; dehydration certainly contributory, rule out hypervitaminosis D Anxiety/mood disorder, at baseline DVT prophylaxis IV heparin plus Coumadin Maintain INR between 2.5-3.5 Heparin has been discontinued and will continue with oral Coumadin and monitor INR CODE STATUS DNR/DNI Admission and Anticipated Discharge Date Admission Date: June 09, 2022 Subjective 06/10/2022 The patient was seen and examined in medical telemetry unit Has significant cardiac disease including mitral valve repair, PPM and diastolic heart failure and was admitted with dizziness and noted to have elevated troponin Has been feeling much better since admission Has had 1 episode of arrhythmia but that resolved subsequently Incidentally was seen by Dr. Grossman as well 06/11/2022 The patient was seen and examined in medical telemetry unit She complains to have some pain in the lower abdomen and mostly in the left lower quadrant Denies any nausea or vomiting with it Denies any palpitation, chest pain and/or shortness of breath Review of Systems Review of Systems: All systems reviewed and are unremarkable except as noted below Respiratory: No shortness of breath at rest Cardiovascular: Additional Comments: No more palpitation and/or chest pain Physical Exam Physical Exam: Sitting at the edge of the bed and eating without any acute distress Constitutional: + ill appearing and average body habitus Eyes: PERRL, conjunctivae normal, anicteric sclerae ENMT: external ear and nose normal, oropharynx normal Neck: trachea midline, no thyromegaly Respiratory: no respiratory distress Auscultation: + diminished lung sounds and + crackles (Minimal crackles at the bases) Cardiovascular: Rate/Rhythm: + tachycardic; + abnormal rate and + abnormal rhythm Heart Sounds: normal S1, normal S2 and + murmur Extremities: + edema (Trace edema bilaterally) Gastrointestinal (Abdomen): Inspection/Auscultation: normal bowel sounds; abdomen not distended Percussion/Palpation: + abdomen tender (Mildly tender in the lower quadrants more on the left than the right ) and abdomen soft Musculoskeletal: No acute arthritis involving any joint Neurologic: normal touch/pain/proprioception and moves all extremities; no focal motor deficits Psychiatric: A+Ox3, euthymic affect Lymphatic: no cervical or axillary lymphadenopathy Results & Data Results & Data Vital Signs (Past 12 Hours) Vital Signs Temp Pulse Pulse Resp BP Pulse Ox O2 Del Method 06/11/22 12:00 62 18 106/69 99 Room Air 06/11/22 08:00 36.7 C 67 18 130/63 95 Room Air 06/11/22 07:24 87 06/11/22 03:00 36.6 C 62 16 152/70 H 98 Room Air Laboratory Results Short CBC 04/12/23 Range/Units 06:44 WBC 7.00 (4.8-10.8) K/ul Hgb 13.6 (12.0-16.0) g/dl Hct 41.0 (37.0-47.0) % Plt Count 158 (130-400) K/uL BMP 06/11/22 06:44 Sodium 141 Potassium 3.9 Chloride 110 H Carbon Dioxide 26 BUN 16 Creatinine 0.66 Glucose 143 H Calcium 9.1 Medications Administered Current Inpatient Medications Acetaminophen (Acetaminophen 325 Mg Tab) 325 mg PO Q6H PRN PRN Reason: Mild Pain (Scale 1, 2, 3) Stop: 07/10/22 00:39 Last Admin: 06/11/22 09:10 Dose: 325 mg Aspirin (Aspirin 81 Mg Ectab) 81 mg PO DAILY [facility] Stop: 07/10/22 08:59 Last Admin: 06/11/22 08:06 Dose: 81 mg Dextrose (Dextrose 50% 50 Ml Syringe) 25 - 50 ml IV UD PRN; Protocol PRN Reason: Hypoglycemia Protocol Stop: 07/10/22 00:39 Digoxin (Digoxin 0.125 Mg Tab) 0.125 mg PO DAILY@1600 [facility] Stop: 07/10/22 15:59 Last Admin: 06/10/22 15:59 Dose: 0.125 mg Fluticasone Propionate (Fluticasone Propionate Na Spr 16 Gm Btl) 1 sprays NA HS [facility] Stop: 07/10/22 20:59 Last Admin: 06/10/22 20:14 Dose: 1 sprays Glucagon (Glucagon For Inj 1 Mg Vial) 1 mg SQ UD PRN; Protocol PRN Reason: Hypoglycemia Protocol Stop: 07/10/22 00:39 Glucose (Glucose 10 Tab/Tube) 4 - 8 tab PO UD PRN; Protocol PRN Reason: Hypoglycemia Treatment Stop: 07/10/22 00:39 Glucose (Glucose 40% Gel 15 Gm Tube) 15 - 30 gm PO UD PRN; Protocol PRN Reason: Hypoglycemia Protocol Stop: 07/10/22 00:39 Promethazine HCl 12.5 mg/ (Sodium Chloride) 50.5 mls @ 201 mls/hr IV Q6H PRN PRN Reason: Nausea And Vomiting Stop: 07/09/22 23:14 Last Infusion: 06/10/22 10:59 Dose: Infused Insulin Aspart (Insulin Aspart Per Unit Charge) 0 units SC ACHS [facility] Stop: 07/10/22 00:39 Last Admin: 06/11/22 12:31 Dose: 2 units Insulin Glargine (Lantus Per Unit Charge) 5 units SQ DAILY [facility] Stop: 07/10/22 08:59 Last Admin: 06/11/22 09:10 Dose: 5 units Lorazepam (Lorazepam 0.5 Mg Tab) 0.25 mg PO HS PRN PRN Reason: insomnia Stop: 07/10/22 19:58 Last Admin: 06/10/22 21:19 Dose: 0.25 mg Metoprolol Tartrate (Metoprolol Tartrate 50 Mg Tab) 50 mg PO BID [facility] Stop: 07/10/22 08:59 Last Admin: 06/11/22 08:06 Dose: 50 mg Miscellaneous (Carbohydrates For Hypoglycemia ) 15 - 30 gm PO UD PRN PRN Reason: Hypoglycemia Protocol Stop: 07/10/22 00:39 Rosuvastatin Calcium (Rosuvastatin Calcium 5 Mg Tab) 5 mg PO QAM [facility] Stop: 07/10/22 08:59 Last Admin: 06/11/22 08:06 Dose: 5 mg Sertraline HCl (Sertraline Hcl 50 Mg Tablet) 50 mg PO QAM [facility] Stop: 07/10/22 08:59 Last Admin: 06/11/22 08:06 Dose: 50 mg Warfarin Sodium (Warfarin Sod 4 Mg Tab) 4 mg PO DAILY@1600 [facility] Stop: 07/11/22 15:59
[2022-06-11] MEDS: DIGOXIN 0.125 MG TAB PO SCH (15:14)
[2022-06-11] MEDS ORDERED: WARFARIN SOD 4 MG TAB PO SCH (16:00)
[2022-06-11] MEDS ORDERED: WARFARIN SOD 5 MG TAB PO SCH (16:00)
[2022-06-11] MEDS: LORazepam 0.5 MG TAB PO PRN (20:29)
[2022-06-11] MEDS: FLUTICASONE PROPIONATE NA SPR 16 GM BTL SCH (20:29)
[2022-06-12 06:31] LABS: Basophils # (auto) 0.06 K/uL (0-0.2); Basophils % (auto) 0.7 %; Eosinophils # (auto) 0.11 K/uL (0-0.50); Eosinophils % (auto) 1.3 %; Hematocrit (blood only) 40.5 % (37.0-47.0); Hemoglobin 13.7 g/dl (12.0-16.0); Immature Granulocytes # (auto) 0.04 K/uL (0.01-0.20); Immature Granulocytes % (auto) 0.5 %; Lymphocytes # (auto) 2.25 K/uL (1.2-3.4); Lymphocytes % (auto) 27.5 %; Mean Corpuscular Hemoglobin 28.7 pg (25.0-34.0); Mean Corpuscular Hgb Conc 33.8 g/dL (32.0-36.0); Mean Corpuscular Volume 84.9 fL (80.0-100.0); Mean Platelet Volume 11.7 fL (9.4-12.4); Monocytes # (auto) 0.87 K/uL (0.11-0.59); Monocytes % (auto) 10.6 %; Neutrophils # (auto) 4.85 K/uL (1.40-6.50); Neutrophils % (auto) 59.4 %; Platelet Count 174 K/uL (130-400); RDW Coefficient of Variation 15.6 % (11.5-14.5); RDW Standard Deviation 48.2 fL (36.4-46.3); Red Blood Count 4.77 M/uL (4.20-5.40); White Blood Count 8.18 K/ul (4.8-10.8)
[2022-06-12 06:49] LABS: BUN Creatinine Ratio 22.9 (10-20); Calcium 9.5 mg/dl (8.6-10.3); Creatinine Clr Calc Pharmacy 54.1 ml/min; Est GFR (African American) 97.5 ml/min; Est GFR (Non-African American) 84.2 ml/min; Potassium 3.9 mmol/L (3.5-5.1)
[2022-06-12 07:12] LABS: INR 3.5 (0.9-1.1)
[2022-06-12] MEDS: METOPROLOL TARTRATE 50 MG TAB PO SCH (08:13)
[2022-06-12] MEDS: SERTRALINE HCL 50 MG TABLET PO SCH (08:13)
[2022-06-12] MEDS: ROSUVASTATIN CALCIUM 5 MG TAB PO SCH (08:13)
[2022-06-12] MEDS: ASPIRIN 81 MG ECTAB PO SCH (08:14)
[2022-06-12] MEDS: LANTUS PER UNIT CHARGE SQ SCH (08:19)
[2022-06-12] MEDS: INSULIN ASPART PER UNIT CHARGE SC SCH ×2 (08:19→12:21)
--- NOTE | 2022-06-12 11:53 | Hospitalist Progress Note ---
Date of Service June 12, 2022 Assessment & Plan (1) Dizziness: Plan: Likely secondary to dehydration which is due to gastroenteritis CT of the head was unremarkable Clinically better since admission Will get orthostatic vitals-significant orthostasis noted Minimal amount of IV fluid Electrolytes have been normalized with normal kidney function No more dizziness with ambulation and he has been ambulating in the hallway without any difficulties He wants to be discharged and will be discharged home this afternoon (2) Gastroenteritis: Plan: We will get a stool for culture and C. difficile Clinically better Stool is negative for C. difficile and cultures have been negative too Has abdominal pain likely secondary to mild enteritis Bowel has not moved in the abdominal pain is improved Was advised to drink more fluid (3) Elevated troponin I level: Plan: Noted to have elevated troponin on admission Likely secondary to demand ischemia from tachycardia and history of heart failure Serial troponins are unremarkable Doubt any ACS Denies any more chest pain and/or palpitation (4) Subtherapeutic anticoagulation: Plan: INR was noted to be subtherapeutic at 1.8 Intravenous heparin was administered INR should be maintained between 2.5-3.5 given mitral and aortic valve replacement status We will increase the dose of Coumadin INR is 2.6 today and will start with 4 mg Coumadin daily and monitor INR while in the hospital INR has been 3.5 today We will continue her usual doses of Coumadin and get an appointment with the Coumadin clinic sooner (5) Tachycardia-bradycardia syndrome: Plan: Status post pacemaker (6) Anticoagulation goal of INR 2.5 to 3.5: Plan: As above (7) S/P AVR (aortic valve replacement): (8) S/P MVR (mitral valve replacement): Plan: No cardiac symptoms (9) Atrial fibrillation: Plan: Has an episode of atrial fibrillation with RVR Very short-lived Was seen by computer networking instructor No further recommendation except keep INR between 2.5-3.5 Rate remains controlled Other chronic medical conditions are as follows: Chronic diastolic heart failure (EF 60 to 65%, TTE 2021), patient on the dry side Hx CAD status post CABG-no cardiac symptoms Hypertension, BP on the lower side Hyperlipidemia, on statin Rx DM2 on oral medications, well-controlled as of recent hemoglobin A1c of 6.7 last December 2021 Hx NAFLD cirrhosis, no overt decompensation Postsurgical hypothyroidism, thyroid despite not being on maintenance medications Mild hypercalcemia, consistently noted on outpatient blood work last year, hx primary hyperparathyroidism status post surgery; dehydration certainly contributory, rule out hypervitaminosis D Anxiety/mood disorder, at baseline DVT prophylaxis IV heparin plus Coumadin Maintain INR between 2.5-3.5 Heparin has been discontinued and will continue with oral Coumadin and monitor INR CODE STATUS DNR/DNI She will be discharged home this afternoon Admission and Anticipated Discharge Date Admission Date: June 11, 2022 Subjective 06/10/2022 The patient was seen and examined in medical telemetry unit Has significant cardiac disease including mitral valve repair, PPM and diastolic heart failure and was admitted with dizziness and noted to have elevated troponin Has been feeling much better since admission Has had 1 episode of arrhythmia but that resolved subsequently Incidentally was seen by Dr. Grossman as well 06/11/2022 The patient was seen and examined in medical telemetry unit She complains to have some pain in the lower abdomen and mostly in the left lower quadrant Denies any nausea or vomiting with it Denies any palpitation, chest pain and/or shortness of breath 06/12/2022 The patient was seen and examined in medical telemetry unit She has been doing much better Minimal pain in the abdomen without any nausea and or vomiting No more dizziness and she wants to be discharged Review of Systems Review of Systems: All systems reviewed and are unremarkable except as noted below Respiratory: No shortness of breath at rest Cardiovascular: Additional Comments: No more palpitation and/or chest pain Physical Exam Physical Exam: Sitting at the edge of the bed and eating without any acute distress Constitutional: + ill appearing and average body habitus Eyes: PERRL, conjunctivae normal, anicteric sclerae ENMT: external ear and nose normal, oropharynx normal Neck: trachea midline, no thyromegaly Respiratory: no respiratory distress Auscultation: + diminished lung sounds and + crackles (Minimal crackles at the bases) Cardiovascular: Rate/Rhythm: + tachycardic; + abnormal rate and + abnormal rhythm Heart Sounds: normal S1, normal S2 and + murmur Extremities: + edema (Trace edema bilaterally) Gastrointestinal (Abdomen): Inspection/Auscultation: normal bowel sounds; abdomen not distended Percussion/Palpation: + abdomen tender (Mildly tender in the lower quadrants more on the left than the right ) and abdomen soft Musculoskeletal: No acute arthritis involving any joint Neurologic: normal touch/pain/proprioception and moves all extremities; no focal motor deficits Psychiatric: A+Ox3, euthymic affect Lymphatic: no cervical or axillary lymphadenopathy Results & Data Results & Data Vital Signs (Past 12 Hours) Vital Signs Temp Pulse Pulse Resp BP Pulse Ox O2 Del Method 06/12/22 11:48 36.5 C 64 14 146/70 H 98 Room Air 06/12/22 07:47 36.4 C L 69 14 135/64 95 Room Air 06/12/22 07:25 79 06/12/22 03:05 36.6 C 73 16 114/65 97 Room Air Laboratory Results Short CBC 06/12/22 Range/Units 06:02 WBC 8.18 (4.8-10.8) K/ul Hgb 13.7 (12.0-16.0) g/dl Hct 40.5 (37.0-47.0) % Plt Count 174 (130-400) K/uL BMP 06/12/22 06:02 Sodium 140 Potassium 3.9 Chloride 110 H Carbon Dioxide 23 BUN 16 Creatinine 0.70 Glucose 144 H Calcium 9.5 Medications Administered Current Inpatient Medications Acetaminophen (Acetaminophen 325 Mg Tab) 325 mg PO Q6H PRN PRN Reason: Mild Pain (Scale 1, 2, 3) Stop: 07/10/22 00:39 Last Admin: 06/11/22 09:10 Dose: 325 mg Aspirin (Aspirin 81 Mg Ectab) 81 mg PO DAILY [facility] Stop: 07/10/22 08:59 Last Admin: 06/12/22 08:14 Dose: 81 mg Dextrose (Dextrose 50% 50 Ml Syringe) 25 - 50 ml IV UD PRN; Protocol PRN Reason: Hypoglycemia Protocol Stop: 07/10/22 00:39 Digoxin (Digoxin 0.125 Mg Tab) 0.125 mg PO DAILY@1600 [facility] Stop: 07/10/22 15:59 Last Admin: 06/11/22 15:14 Dose: 0.125 mg Fluticasone Propionate (Fluticasone Propionate Na Spr 16 Gm Btl) 1 sprays NA HS [facility] Stop: 07/10/22 20:59 Last Admin: 06/11/22 20:29 Dose: 1 sprays Glucagon (Glucagon For Inj 1 Mg Vial) 1 mg SQ UD PRN; Protocol PRN Reason: Hypoglycemia Protocol Stop: 07/10/22 00:39 Glucose (Glucose 10 Tab/Tube) 4 - 8 tab PO UD PRN; Protocol PRN Reason: Hypoglycemia Treatment Stop: 07/10/22 00:39 Glucose (Glucose 40% Gel 15 Gm Tube) 15 - 30 gm PO UD PRN; Protocol PRN Reason: Hypoglycemia Protocol Stop: 07/10/22 00:39 Promethazine HCl 12.5 mg/ (Sodium Chloride) 50.5 mls @ 201 mls/hr IV Q6H PRN PRN Reason: Nausea And Vomiting Stop: 07/09/22 23:14 Last Infusion: 06/10/22 10:59 Dose: Infused Insulin Aspart (Insulin Aspart Per Unit Charge) 0 units SC ACHS [facility] Stop: 07/10/22 00:39 Last Admin: 06/12/22 08:19 Dose: 2 units Insulin Glargine (Lantus Per Unit Charge) 5 units SQ DAILY [facility] Stop: 07/10/22 08:59 Last Admin: 06/12/22 08:19 Dose: 5 units Lorazepam (Lorazepam 0.5 Mg Tab) 0.25 mg PO HS PRN PRN Reason: insomnia Stop: 07/10/22 19:58 Last Admin: 06/11/22 20:29 Dose: 0.25 mg Metoprolol Tartrate (Metoprolol Tartrate 50 Mg Tab) 50 mg PO BID [facility] Stop: 07/10/22 08:59 Last Admin: 06/12/22 08:13 Dose: 50 mg Miscellaneous (Carbohydrates For Hypoglycemia ) 15 - 30 gm PO UD PRN PRN Reason: Hypoglycemia Protocol Stop: 07/10/22 00:39 Rosuvastatin Calcium (Rosuvastatin Calcium 5 Mg Tab) 5 mg PO QAM [facility] Stop: 07/10/22 08:59 Last Admin: 06/12/22 08:13 Dose: 5 mg Sertraline HCl (Sertraline Hcl 50 Mg Tablet) 50 mg PO QAM [facility] Stop: 07/10/22 08:59 Last Admin: 06/12/22 08:13 Dose: 50 mg Warfarin Sodium (Warfarin Sod 3 Mg Tab) 3 mg PO DAILY@1600 [facility] Stop: 07/12/22 15:59
[2022-06-12] MEDS: ACETAMINOPHEN 325 MG TAB PO PRN (12:21)
[2022-06-12] MEDS ORDERED: WARFARIN SOD 3 MG TAB PO SCH (16:00)
--- NOTE | 2022-06-13 07:52 | Discharge Summary ---
Date of Service June 13, 2022 Admission HPI Per Admitting Provider History obtained from patient, family, and records. Medical history significant for chronic diastolic heart failure (EF 60 to 65%, TTE 2021 ), SSS status post PPM on Coumadin, CAD status post CABG, rheumatic heart disease status post surgery (mechanical MVR/AVR), mild TR, hypertension, hyperlipidemia, DM2 on oral medications, NAFLD cirrhosis, postsurgical hypothyroidism, primary hyperparathyroidism status post surgery, anxiety/mood disorder. Last confinement March 2021 for acute hyperglycemia. Today, patient noted sudden onset of abdominal discomfort, nausea, emesis symptoms without constipation/diarrhea symptoms. Subsequent dizziness. Patient denies chest pain, SOB. Patient suspects discomfort from trying out tap water from [place]. Patient brought to the ER for evaluation. Heart rate 105 upon arrival at the ER. 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 Admission Exam Per Admitting Provider Physical Exam: GENERAL: Comfortable pleasant, slightly hard of hearing, no respiratory distress SKIN: Normal color, warm HEENT: [place] palpebral conjunctivae, no ptosis, dry buccal mucosa NECK : Supple, no tenderness CHEST : CTA, no tenderness HEART : RRR, mechanical murmur appreciated ABDOMEN: Some distention, minimal central abdominal tenderness EXTREMITIES : No LE swelling/tenderness, no other conspicuous deformities noted NEUROLOGIC : Coherent, no facial asymmetry, slightly hard of hearing, no other gross focality Principal Diagnosis Dizziness likely secondary to dehydration, gastroenteritis, atrial fibrillation, status post AVR and MVR on Coumadin Discharge Exam Sitting at the edge of the bed and eating without any acute distress Constitutional + ill appearing and average body habitus Eyes PERRL, conjunctivae normal, anicteric sclerae ENMT external ear and nose normal, oropharynx normal Neck trachea midline, no thyromegaly Respiratory no respiratory distress Auscultation: + diminished lung sounds and + crackles (Minimal crackles at the bases) Cardiovascular Rate/Rhythm: + tachycardic; + abnormal rate and + abnormal rhythm Heart Sounds: normal S1, normal S2 and + murmur Extremities: + edema (Trace edema bilaterally) Gastrointestinal (Abdomen) Inspection/Auscultation: normal bowel sounds; abdomen not distended Percussion/Palpation: + abdomen tender (Mildly tender in the lower quadrants more on the left than the right ) and abdomen soft Neurologic normal touch/pain/proprioception and moves all extremities; no focal motor deficits Psychiatric A+Ox3, euthymic affect Lymphatic no cervical or axillary lymphadenopathy Discharge Data Allergies Allergy/AdvReac Type Severity Reaction Status Date / Time lidocaine Allergy Intermediate Rash/hives Verified 06/09/22 20:37 [From Aspercreme (lidocaine)] with cream Sulfa (Sulfonamide Allergy Intermediate Rash, hives Verified 06/09/22 20:37 Antibiotics) latex Allergy Unknown Wheezing Verified 06/09/22 20:37 levothyroxine AdvReac Intermediate Tachycardia Verified 06/09/22 20:37 Consultations 06/09/22 22:02 ED Decision to Admit Stat Ordered Studies 06/09/22 19:44 CT abd pelvis IV con only Stat CT head/brain wo con Stat Hospital Course (1) Dizziness: Likely secondary to dehydration which is due to gastroenteritis CT of the head was unremarkable Clinically better since admission Will get orthostatic vitals-significant orthostasis noted Minimal amount of IV fluid Electrolytes have been normalized with normal kidney function No more dizziness with ambulation and he has been ambulating in the hallway without any difficulties He wants to be discharged and will be discharged home this afternoon (2) Gastroenteritis: We will get a stool for culture and C. difficile Clinically better Stool is negative for C. difficile and cultures have been negative too Has abdominal pain likely secondary to mild enteritis Bowel has not moved in the abdominal pain is improved Was advised to drink more fluid (3) Elevated troponin I level: Noted to have elevated troponin on admission Likely secondary to demand ischemia from tachycardia and history of heart failure Serial troponins are unremarkable Doubt any ACS Denies any more chest pain and/or palpitation (4) Subtherapeutic anticoagulation: INR was noted to be subtherapeutic at 1.8 Intravenous heparin was administered INR should be maintained between 2.5-3.5 given mitral and aortic valve replacement status We will increase the dose of Coumadin INR is 2.6 today and will start with 4 mg Coumadin daily and monitor INR while in the hospital INR has been 3.5 today We will continue her usual doses of Coumadin and get an appointment with the Coumadin clinic sooner (5) Tachycardia-bradycardia syndrome: Status post pacemaker (6) Anticoagulation goal of INR 2.5 to 3.5: As above (7) S/P AVR (aortic valve replacement): (8) S/P MVR (mitral valve replacement): No cardiac symptoms (9) Atrial fibrillation: Has an episode of atrial fibrillation with RVR Very short-lived Was seen by blending kettle tender No further recommendation except keep INR between 2.5-3.5 Rate remains controlled Other chronic medical conditions are as follows: Chronic diastolic heart failure (EF 60 to 65%, TTE 2021), patient on the dry side Hx CAD status post CABG-no cardiac symptoms Hypertension, BP on the lower side Hyperlipidemia, on statin Rx DM2 on oral medications, well-controlled as of recent hemoglobin A1c of 6.7 last December 2021 Hx NAFLD cirrhosis, no overt decompensation Postsurgical hypothyroidism, thyroid despite not being on maintenance medications Mild hypercalcemia, consistently noted on outpatient blood work last year, hx primary hyperparathyroidism status post surgery; dehydration certainly contributory, rule out hypervitaminosis D Anxiety/mood disorder, at baseline DVT prophylaxis IV heparin plus Coumadin Maintain INR between 2.5-3.5 Heparin has been discontinued and will continue with oral Coumadin and monitor INR CODE STATUS DNR/DNI She will be discharged home this afternoon Total Time Total Time Spent Total Time Spent (In Minutes): 35 minutes Discharge Plan Discharge Items Patient Disposition: Home - Self-Care Reason For Visit: DIZZINESS, TROP ELEV Discharge Diagnosis: Dizziness likely secondary to dehydration, gastroenteritis, atrial fibrillation, status post AVR and MVR on Coumadin Condition on Discharge: Good Activity: Resume your previous activity Non-emergency contact: Primary Care Provider Call non-emergency contact if: you have any medication questions and your symptoms worsen Follow-up/Referrals: Talya Boswell DO [Outside Practitioners] - (Date & Time 06/20/2022 2:00 PM Provider Pharmacist [facility] Department Family Practice [address] [place] [address] Date & Time 06/20/2022 2:40 PM Provider Talya Boswell DO Department Family Practice [address] [place] [address] ) Diet: Carb Consistent or DM2 and Heart Healthy Addtl Attending Provider Instructions: Please take precautions to avoid falls Continue your Coumadin as before-your INR should be maintained between 2.5-3.5 Your Coumadin clinic will call you with an early appointment to check your INR No change in your other medications Try to drink a little more fluid to maintain hydration Keep appointments with your healthcare providers Pending Studies at Discharge: No Stand-Alone Forms: My [facility], Smoking Cessation Medications and DC Order Prescriptions: Continued nitroglycerin [Nitrostat] 0.4 mg Tablet, Sublingual 0.4 mg sublingual DIRECTED PRN (Reason: Chest Pain) Rx Instructions: PLACE ONE TABLET UNDER THE TONGUE EVERY 5 MINUTES FOR UP TO 3 DOSES OVER 15 MINUTES IF NEEDED FOR CHEST PAIN furosemide 20 mg Tablet See Rx Instructions .ROUTE .COMPLEX Rx Instructions: TAKE BY MOUTH ONE TABLET (20 MG) EVERY OTHER DAY ALTERNATING WITH TWO TABLETS (40 MG) EVERY OTHER DAY sertraline 50 mg tablet 50 mg PO QAM cholecalciferol (vitamin D3) [Vitamin D3] 25 mcg (1,000 unit) Tablet 50 mcg PO QAM metoprolol tartrate 25 mg tablet 50 mg PO [facility] digoxin 125 mcg (0.125 mg) Tablet 125 mcg PO QAM fluticasone propionate 50 mcg/actuation spray,suspension 1 spray INTRANASAL HS Rx Instructions: use in each nostril Jardiance 10 mg tablet 10 mg PO QAM warfarin 1 mg tablet 2 - 3 mg PO DAILY Rx Instructions: DIRECTED TO TAKE BY ANTICOAGULATION CLINIC/ rosuvastatin 5 mg Tablet 5 mg PO QAM metformin 500 mg Tablet Extended Release 24hr 500 mg PO PM aspirin 81 mg Tablet,Delayed Release (Dr/Ec) 81 mg PO DAILY amoxicillin 500 mg capsule 2,000 mg PO ONCE PRN (Reason: Prophylaxis) Rx Instructions: take 4 capsules 1 hour prior to procedures Discharge Orders: Discharge Order (Routine); Ordered 06/12/22 Ordered By: Patti Marks Admission Data Admit Date/Time: 06/11/22 17:03 Attending Provider: Patti Marks Admit Provider: Diaz Chaves Primary Care Provider: PCP,NO Other Providers: Diaz Chaves Other Interventions: Discharge Summary Assessment (RN) Last Done: 06/12/22 14:10
== END 2022-06-12 14:00 | disposition home or self-care (01) | DRG 392 ==
LOC: ED 19:36 → 2N 19:36

== ENCOUNTER 2023-07-13 14:43 | Inpatient (IN) ==
--- NOTE | 2023-07-13 15:16 | Emergency Department Note ---
History of Present Illness General Chief complaint: Fall Stated complaint: FALL, HIP, SHOULDER, BACK Time Seen by Provider: 07/13/23 14:58 History of Present Illness This is a 77-year-old female who presents to the emergency department via private vehicle with complaints of "fall, left hip pain, upper back pain". Patient states that yesterday she went to get out of a chair and part of her clothing caught in the chair causing her to fall to the left side. She landed on her left hip. She notes left hip pain and swelling since that time as well as pain in her upper back area and near her left shoulder. No chest pain or abdominal pain but does note pain with some certain movements. She has a history of atrial fibrillation and is on anticoagulants. Patient denies any numbness or tingling. She is accompanied here today by a friend. Patient denies striking the head or loss of consciousness. Home Medications Medication Instructions Recorded Confirmed Type furosemide 20 mg tablet 20 mg PO UD 05/27/18 07/13/23 History nitroglycerin 0.4 mg sublingual 0.4 mg sublingual DIRECTED PRN 05/27/18 07/13/23 History tablet (Nitrostat) Chest Pain sertraline 50 mg tablet 50 mg PO QAM 04/05/20 07/13/23 History digoxin 125 mcg (0.125 mg) tablet 125 mcg PO QAM 08/14/20 07/13/23 History metoprolol tartrate 25 mg tablet 50 mg PO AMHS 08/14/20 07/13/23 History cholecalciferol (vitamin D3) 25 50 mcg PO QAM 03/08/21 07/13/23 History mcg (1,000 unit) tablet (Vitamin D3) amoxicillin 500 mg capsule 2,000 mg PO ONCE PRN Prophylaxis 06/09/22 07/13/23 History aspirin 81 mg tablet,delayed 81 mg PO DAILY 06/09/22 07/13/23 History release fluticasone propionate 50 1 spray intranasal HS PRN otjer 06/09/22 07/13/23 History mcg/actuation nasal spray,suspension rosuvastatin 5 mg tablet 5 mg PO DAILY 06/09/22 07/13/23 History warfarin 1 mg tablet 2 - 3 mg PO DAILY 06/09/22 07/13/23 History blood-glucose meter (OneTouch 08/13/22 03/30/23 History Verio Flex Meter) empagliflozin 25 mg tablet 25 mg PO QAM 08/13/22 07/13/23 History (Jardiance) pen needle, diabetic 32 gauge x #100 ea 08/14/22 03/30/23 Rx 1/4" (Comfort EZ Pen Wisner) insulin degludec 100 unit/mL (3 26 unit subcut DAILY 11/17/22 07/13/23 History mL) subcutaneous pen (Tresiba FlexTouch U-100 insulin) solifenacin 5 mg tablet (Vesicare) 5 mg PO DAILY #30 tabs 07/03/23 07/13/23 Rx dicyclomine 10 mg capsule 10 mg PO DAILY PRN Other 07/13/23 07/13/23 History Allergies Allergy/AdvReac Type Severity Reaction Status Date / Time lidocaine Allergy Intermediate Rash/hives Verified 03/30/23 10:11 [From Aspercreme (lidocaine)] with cream Sulfa (Sulfonamide Allergy Intermediate Rash, hives Verified 03/30/23 10:11 Antibiotics) latex Allergy Unknown Wheezing Verified 03/30/23 10:11 levothyroxine AdvReac Intermediate Tachycardia Verified 03/30/23 10:11 Past Med/Surg History Medical History Thigh hematoma 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 Almeida; h/o mult cardioversions; on warfarin IBS (irritable bowel syndrome) Paroxysmal atrial flutter Atrial flutter Rheumatic heart disease Hypothyroidism no medication Liver cirrhosis secondary to BROWNE HLD (hyperlipidemia) HTN (hypertension) CKD (chronic kidney disease), stage II pt denies. Anticoagulation goal of INR 2.5 to 3.5 CAD (coronary artery disease) Rheumatic heart disease, on March 04, 2002 patient underwent aortic valve replacement and mitral valve replacement along with CABG x3 with a KIRK to the LAD, right internal mammary artery anastomosis as a free graft to the RCA and a single saphenous vein graft to the diagonal coronary artery and radiofrequency ablation of atrial fibrillation pathways at [facility]. 01/2011 admitted to [facility] secondary to symptomatically A. fib flutter which patient underwent DCCV. Sotalol was started but stopped due to intolerance secondary to nausea and bradycardia. July 2011 Tikosyn loading and successful repeat DCCV. 01/08/12 underwent cardiac catheterization at [facility] and remained on warfarin. Noted to have single-vessel disease 70% mid LAD, 2 of the 3 bypasses were patent. There was obstruction of the SVG to diagonal however, the [place] diagonal had no significant obstruction. 12/24/12 hospitalized at [facility] and underwent redo of mechanical MVR By Dr. Manley. Postop day flutter noted. Tikosyn was discontinued and sent home on amiodarone and metoprolol. 05/3015 admitted to [facility] secondary to symptomatically flutter and tikosyn re-initiated. 11/2015 admitted to [facility] secondary to recurrent symptomatic paroxysmal atrial flutter with RVR, status post DCCV. Surgical History History of cardiac cath 2002 & ~2013 [facility] History of bilateral tubal ligation History of cataract surgery bilateral History of tonsillectomy History of colonoscopy History of bilateral breast reduction surgery History of partial thyroidectomy Hx of appendectomy History of cholecystectomy Hx of CABG x3 vessels (2002) at [facility] H/O esophagogastroduodenoscopy S/P cholecystectomy S/P NELLY (total abdominal hysterectomy) LSO S/P MVR (mitral valve replacement) "Mechanical 2002" plus a revision 2012 S/P AVR (aortic valve replacement) "Mechanical 2002 On 05/25/15 15:41 Mel Quevedo wrote "Mechanical 2002" Family History Mother Colorectal cancer Father FHx: bladder cancer Other No family history of adverse response to anesthesia Social History Smoking Status: Never smoker Second Hand Exposure: No; Do You Dip or Chew Tobacco: No; Hx Alcohol Use: No Hx Substance Use: No Preferred Language: Polish Communication Ability: 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 Beliefs That Will Affect Care: None Current Living Situation: Alone Current Living Situation Comment: [place] (Independent living) Other Information That Helps Us Care for You: No Feels Safe at Home: Yes Safety Concerns: Feels Safe At This Time Assistive Devices: Denture - Upper, Glasses, Hearing Aid - Bilateral and Walker Review of Systems A total of 10 systems reviewed and were otherwise negative Physical Exam Vital Signs Vital Signs - 24 hr 07/13/23 14:51 07/13/23 15:10 Temperature 37.3 C Temperature Source Temporal Artery Scan Pulse Rate 78 Respiratory Rate 19 Respiratory Effort / Characteristics Non-Labored Spontaneous Respiratory Depth Normal Blood Pressure 135/64 Blood Pressure Mean 87 Pulse Oximetry 97 96 Oxygen Delivery Method Room Air Room Air Sepsis Recent Fever Within 48 Hours No Sepsis New/Unexplained Change in Mental Status N/A Sepsis Action Taken by Nursing No Action Required VITAL SIGNS - Vital signs and nursing notes were reviewed. Stable and afebrile. GENERAL -77-year-old female appearing her stated age who is in no acute distress. Communicates well with provider and answers questions appropriately. SKIN - Without rashes. No meningeal or petechial rash. There is a palpable contusion/hematoma to the left lateral hip region within the thigh. There is no pulsatile component. Inspection reveals a mild purpleish hue consistent with ecchymosis. No open wounds. HEAD - NC/AT. EYES - PERRL with EOMI bilaterally. Sclera anicteric. No hyphema. EARS - No deformities of external structures noted on gross examination bilaterally. No hemotympanum. NOSE - Midline and without cyanosis. No epistaxis or purulent drainage noted. MOUTH/OROPHARYNX - Without perioral cyanosis. NECK - Neck with FROM.No nuchal rigidity. No C spine TTP. LUNGS - Chest wall symmetric without accessory muscle use, intercostals retractions, or central cyanosis. Normal vesicular breath sounds CTA B/L. No wheezes, rales, or rhonchi appreciated. CARDIAC - RRR ABDOMEN - Abdominal contour normal without pulsations or visible masses. BS normoactive all four quadrants. No tenderness, palpable masses, hepatosplenomegaly, or ascites noted. EXTREMITIES - No clubbing or peripheral cyanosis. Skin as above. Left lateral thigh tender to palpation. Lower extremities and upper extremities appropriately warm and well-perfused. Mild soft tissue swelling to the dorsal left wrist region. +5/5 strength noted in UE/LE bilaterally. MSK- Mid back TTP noted. No bruising to back region noted. NEUROLOGIC - Cranial nerves II through XII grossly intact. PSYCH -alert, oriented and pleasant on exam. Course Administered Medications Heparin Sodium/Dextrose (Heparin Sodium/Dextrose) 25,000 units in 500 mls @ 20 mls/hr IV .Q24H [facility]; Protocol Stop: 08/12/23 19:29 Last Admin: 07/13/23 19:45 Dose: 1,000 units/hr, 20 mls/hr Documented By: JEISON Co-signed By: GASTON Acetaminophen (Ofirmev) 1,000 mg in 100 mls @ 400 mls/hr IV Q8H ARACELI Stop: 07/16/23 19:59 Last Infusion: 07/13/23 20:45 Dose: Infused Documented By: Admin: 07/13/23 20:20 Dose: 400 mls/hr Documented By: GASTON Oxycodone HCl (Oxycodone Hcl Ir 5 Mg Tab (Immediate Release)) 5 mg PO Q6H PRN PRN Reason: Pain Stop: 07/27/23 19:59 Last Admin: 07/13/23 23:30 Dose: 5 mg Documented By: BA Discontinued Medications Fentanyl Citrate (Fentanyl Citrate Pf 100 Mcg/2 Ml Vial) 25 mcg IV NOW STA Stop: 07/13/23 15:10 Last Admin: 07/13/23 15:48 Dose: 25 mcg Documented By: RADHA Heparin Sodium/Dextrose (Heparin Iv Adult Wt-Based Standard *No* Initial Bolus Protocol) 1 each IV ONE STA; Protocol Stop: 07/13/23 19:03 Last Admin: 07/13/23 19:53 Dose: Not Given Documented By: GASTON Insulin Aspart (Insulin Aspart Per Unit Charge) 0 units SC TODAY@2315 [facility] Stop: 07/13/23 23:59 Last Admin: 07/13/23 23:31 Dose: Not Given Documented By: BA Ioversol (Optiray 320 100ml) 93 ml IV ONCE ONE Stop: 07/13/23 16:37 Last Admin: 07/13/23 16:37 Dose: 93 ml Documented By: BYRON Medical Decision Making Laboratory Data 07/14/23 02:07 07/13/23 15:50 Lab Results 07/13/23 Range/Units 15:50 WBC 9.76 (4.8-10.8) K/ul RBC 4.59 (4.20-5.40) M/uL Hgb 13.1 (12.0-16.0) g/dl Hct 38.5 (37.0-47.0) % MCV 83.9 (80.0-100.0) fL MCH 28.5 (25.0-34.0) pg MCHC 34.0 (32.0-36.0) g/dL RDW Std Deviation 46.4 H (36.4-46.3) fL RDW Coeff of Tammi 15.3 H (11.5-14.5) % Plt Count 193 (130-400) K/uL MPV 11.6 (9.4-12.4) fL Immature Gran % (Auto) 0.5 % Neut % (Auto) 68.8 % Lymph % (Auto) 21.9 % Baldwin % (Auto) 8.3 % Eos % (Auto) 0.2 % Baso % (Auto) 0.3 % Neut # (Auto) 6.71 H (1.40-6.50) K/uL Lymph # (Auto) 2.14 (1.20-3.40) K/uL Baldwin # (Auto) 0.81 H (0.11-0.59) K/uL Eos # (Auto) 0.02 (0.00-0.50) K/uL Baso # (Auto) 0.03 (0.00-0.20) K/uL Immature Gran # (Auto) 0.05 (0.01-0.20) K/uL PT 16.9 H (9.0-12.0) Seconds INR 1.6 H (0.9-1.1) APTT 35 H (21-31) Seconds PTT Ratio 1.3 Sodium 138 (136-145) mmol/L Potassium 3.6 (3.5-5.1) mmol/L Chloride 104 (98-107) mmol/L Carbon Dioxide 24 (21-32) mmol/L Anion Gap 10 (3-11) BUN 17 (6-23) mg/dl Creatinine 0.73 (0.6-1.2) mg/dl Est Cr Clr Drug Dosing Not Reportable Est GFR ( Amer) 92.1 ml/min Est GFR (Non-Af Amer) 79.4 ml/min BUN/Creatinine Ratio 23.3 H (10-20) Glucose 190 H (70-99(Fasting)) mg/dl Calcium 10.1 (8.6-10.3) mg/dl Total Bilirubin 0.9 (0.2-1.0) mg/dl AST 21 (13-39) U/L ALT 12 (7-52) U/L Alkaline Phosphatase 63 (34-104) U/L Total Protein 7.9 (6.0-8.3) gm/dl Albumin 4.2 (3.4-5.0) gm/dl Globulin 3.7 (2.5-4.0) gm/dl Albumin/Globulin Ratio 1.1 (0.9-2) Imaging Data Radiologist's Impression: Abdomen/Pelvis CT 07/13/23 15:09 CT SCAN OF THE CHEST, ABDOMEN, AND PELVIS WITH IV CONTRAST CLINICAL HISTORY: Trauma. Fall. COMPARISON STUDY: Chest x-ray dated 06/09/2022. Chest CT dated 10/09/2012. Abdominal CT dated 06/09/2022. TECHNIQUE: Following the IV administration of 93 of Optiray 320, CT scan of the chest, abdomen, and pelvis was performed from the thoracic inlet to the proximal femora. Images are reviewed in the axial, sagittal, and coronal planes. IV contrast was administered without complication. A dose lowering technique was utilized adhering to the principles of ALARA. FINDINGS: CHEST: Thyroid: The right lobe is atrophic versus surgically absent. The left lobe is mildly enlarged and heterogeneous. Thoracic aorta: Postsurgical changes noted involving the aortic root. There is atherosclerotic calcification of the thoracic aorta. The thoracic aorta is normal in caliber and demonstrates standard 3-vessel arch anatomy. No dissection is seen. Pulmonary vasculature: The pulmonary trunk is normal in caliber. There are no filling defects identified in the central pulmonary vessels to indicate pulmonary embolus. Note that this examination was not protocoled for evaluation of the pulmonary arteries. Heart: A pacemaker is present in the left chest wall. The patient is status post midline sternotomy and cardiac valve surgery. The heart is normal in size and without pericardial effusion. The coronary arteries are densely calcified. Lungs and pleural spaces: Evaluation of the lung parenchyma is moderately degraded by motion artifact. There is no airspace consolidation, pleural effusion, or pneumothorax. Scarring/atelectasis is noted at both lung bases. The trachea and central airways are clear. There are scattered calcified granulomas. Mediastinum: There is no mediastinal hematoma or lymphadenopathy. April: Clear. Axillae: There is no axillary lymphadenopathy. Bony thorax: The skeletal structures are osteopenic. The bony thorax appears intact. There is a mild chronic superior compression deformity of T8. No lytic or blastic lesions are identified. ABDOMEN AND PELVIS: Liver: The contrast-enhanced liver is cirrhotic in morphology and heterogeneous in attenuation. There is hypertrophy of the left lobe and nodularity of the hepatic surface contour. There is no intrahepatic biliary ductal dilatation. The hepatic veins and portal veins are patent. Gallbladder: Surgically absent noting clips in the gallbladder fossa. Spleen: Normal in size and attenuation. Pancreas: Unremarkable. Adrenal glands: Unremarkable. Kidneys: The contrast enhanced kidneys are normal in size and without hydronephrosis. The kidneys enhance symmetrically. Abdominal vasculature: The abdominal aorta is normal in course and caliber noting moderate atherosclerotic calcification. Bowel: There is mild colonic diverticulosis without CT evidence of acute diverticulitis. No bowel obstruction is seen. The appendix is not visualized. Peritoneum: There is no intraperitoneal free air or abdominal ascites. Lymphadenopathy: None. Pelvic viscera: The bladder is distended but otherwise normal in appearance. The uterus is surgically absent. No adnexal lesion is seen. Surgical clips are noted in the right groin. Skeletal structures: The skeletal structures are osteopenic. The lumbosacral spine, bony pelvis, and proximal femora appear intact. There is lumbosacral spondylosis. No lytic or blastic lesions are seen. Soft tissues: There is soft tissue contusion/edema with a subcutaneous hematoma seen in the left upper thigh overlying the greater trochanter of the left femur. This is best seen on axial image #330 and measures 6.8 x 6.1 x 3.2 cm. Small foci of active extravasation are seen inferiorly on images #343 # and 359. IMPRESSION: 1. There is no acute posttraumatic intrathoracic abnormality. 2. There is no airspace consolidation, pleural effusion, or pneumothorax. 3. There is no evidence of solid organ injury in the abdomen or pelvis. 4. A subcutaneous soft tissue contusion with hematoma is seen in the left upper thigh with foci of active extravasation. 5. Cardiomegaly. 6. Cirrhotic liver morphology. 7. Additional findings as above. ACT 112: Negative or not required by law. Electronically signed by: Madhu Norwood M.D. 07/13/2023 5:[address] 07/13/23 15:09 CT cervical spine wo con CLINICAL HISTORY: 77 years-old Female with Fall, anticoagulated, trauma. Acute neck pain status post fall COMPARISON: Head CT of same day, CTA neck 08/13/2079 TECHNIQUE: Multiple axial CT images of the cervical spine were obtained without contrast. A dose lowering technique was utilized adhering to the principles of ALARA. FINDINGS: Multilevel facet arthrosis is prominently moderate. Multilevel intervertebral disc space narrowing, moderate to severe C4-C5. Posterior disc osteophyte complex formations most pronounced at C4-C5 and C6-C7. No acute fracture or subluxation identified. The cervical soft tissues appear unremarkable. Subcentimeter hypodense left- sided thyroid nodules. Atherosclerosis of the carotid bulbs. The visualized lung apices appear clear. IMPRESSION: No acute cervical spine fracture or subluxation. ACT 112: Negative or not required by law. The above report was generated using voice recognition software. It may contain grammatical, syntax or spelling errors. Electronically signed by: Rojelio Griggs M.D. 07/13/2023 5:[address] 07/13/23 15:09 CT SCAN OF THE CHEST, ABDOMEN, AND PELVIS WITH IV CONTRAST CLINICAL HISTORY: Trauma. Fall. COMPARISON STUDY: Chest x-ray dated 06/09/2022. Chest CT dated 10/09/2012. Abdominal CT dated 06/09/2022. TECHNIQUE: Following the IV administration of 93 of Optiray 320, CT scan of the chest, abdomen, and pelvis was performed from the thoracic inlet to the proximal femora. Images are reviewed in the axial, sagittal, and coronal planes. IV contrast was administered without complication. A dose lowering technique was utilized adhering to the principles of ALARA. FINDINGS: CHEST: Thyroid: The right lobe is atrophic versus surgically absent. The left lobe is mildly enlarged and heterogeneous. Thoracic aorta: Postsurgical changes noted involving the aortic root. There is atherosclerotic calcification of the thoracic aorta. The thoracic aorta is normal in caliber and demonstrates standard 3-vessel arch anatomy. No dissection is seen. Pulmonary vasculature: The pulmonary trunk is normal in caliber. There are no filling defects identified in the central pulmonary vessels to indicate pulmonary embolus. Note that this examination was not protocoled for evaluation of the pulmonary arteries. Heart: A pacemaker is present in the left chest wall. The patient is status post midline sternotomy and cardiac valve surgery. The heart is normal in size and without pericardial effusion. The coronary arteries are densely calcified. Lungs and pleural spaces: Evaluation of the lung parenchyma is moderately degraded by motion artifact. There is no airspace consolidation, pleural effusion, or pneumothorax. Scarring/atelectasis is noted at both lung bases. The trachea and central airways are clear. There are scattered calcified granulomas. Mediastinum: There is no mediastinal hematoma or lymphadenopathy. April: Clear. Axillae: There is no axillary lymphadenopathy. Bony thorax: The skeletal structures are osteopenic. The bony thorax appears intact. There is a mild chronic superior compression deformity of T8. No lytic or blastic lesions are identified. ABDOMEN AND PELVIS: Liver: The contrast-enhanced liver is cirrhotic in morphology and heterogeneous in attenuation. There is hypertrophy of the left lobe and nodularity of the hepatic surface contour. There is no intrahepatic biliary ductal dilatation. The hepatic veins and portal veins are patent. Gallbladder: Surgically absent noting clips in the gallbladder fossa. Spleen: Normal in size and attenuation. Pancreas: Unremarkable. Adrenal glands: Unremarkable. Kidneys: The contrast enhanced kidneys are normal in size and without hydronephrosis. The kidneys enhance symmetrically. Abdominal vasculature: The abdominal aorta is normal in course and caliber noting moderate atherosclerotic calcification. Bowel: There is mild colonic diverticulosis without CT evidence of acute diverticulitis. No bowel obstruction is seen. The appendix is not visualized. Peritoneum: There is no intraperitoneal free air or abdominal ascites. Lymphadenopathy: None. Pelvic viscera: The bladder is distended but otherwise normal in appearance. The uterus is surgically absent. No adnexal lesion is seen. Surgical clips are noted in the right groin. Skeletal structures: The skeletal structures are osteopenic. The lumbosacral spine, bony pelvis, and proximal femora appear intact. There is lumbosacral spondylosis. No lytic or blastic lesions are seen. Soft tissues: There is soft tissue contusion/edema with a subcutaneous hematoma seen in the left upper thigh overlying the greater trochanter of the left femur. This is best seen on axial image #330 and measures 6.8 x 6.1 x 3.2 cm. Small foci of active extravasation are seen inferiorly on images #343 # and 359. IMPRESSION: 1. There is no acute posttraumatic intrathoracic abnormality. 2. There is no airspace consolidation, pleural effusion, or pneumothorax. 3. There is no evidence of solid organ injury in the abdomen or pelvis. 4. A subcutaneous soft tissue contusion with hematoma is seen in the left upper thigh with foci of active extravasation. 5. Cardiomegaly. 6. Cirrhotic liver morphology. 7. Additional findings as above. ACT 112: Negative or not required by law. Electronically signed by: Madhu Norwood M.D. 07/13/2023 5:01 PM Hand X-Ray 07/13/23 15:09 LEFT HAND 3 VIEWS CLINICAL HISTORY: Fall. Left hand injury. FINDINGS: 3 views of the left hand are obtained. No prior studies are available for comparison at the time of dictation. The skeletal structures are osteopenic. No fracture is seen. Minimal osteoarthritic change is noted throughout the wrist and hand. No erosive disease is seen. The overlying soft tissues are within normal limits. IMPRESSION: No acute bony abnormality is identified. Electronically signed by: Madhu Norwood M.D. 07/13/2023 3:[address] 07/13/23 15:09 CT SCAN OF THE BRAIN WITHOUT IV CONTRAST CLINICAL HISTORY: Trauma. Fall. COMPARISON STUDY: CT of the brain dated 06/09/2022. TECHNIQUE: Unenhanced axial CT scan of the brain is performed from the vertex to the skull base. A dose lowering technique was utilized adhering to the principles of ALARA. CT DOSE: 2072.88 mGy.cm FINDINGS: Brain parenchyma: There is age-related involutional change noting moderate subcortical and periventricular microangiopathic disease. There is no hemorrhage, mass effect, or evidence of acute territorial ischemia by CT criteria. Mineralization is noted in the basal ganglia. Mercado-white matter differentiation is preserved. No extra-axial fluid collection is seen. Ventricles, sulci, cisterns: Prominent secondary to involutional change. Intracranial vasculature: There is atherosclerotic calcification of the cavernous carotid arteries. Calvarium: The skeletal structures are osteopenic. There is no depressed calvarial fracture. Sinuses and mastoids: The visualized paranasal sinuses are clear. The mastoid air cells are well pneumatized. Orbits: The bony orbits are grossly intact. IMPRESSION: There is no hemorrhage, mass effect, or evidence of acute territorial ischemia by CT criteria. ACT 112: Negative or not required by law. Electronically signed by: Madhu Norwood M.D. 07/13/2023 4:48 PM Femur X-Ray 07/13/23 15:10 LEFT FEMUR 3 VIEWS CLINICAL HISTORY: Fall. Left leg injury. FINDINGS: AP, frog-leg, and lateral views of the left femur are obtained. No prior studies are available for comparison at the time of dictation. The skeletal structures are osteopenic. There is no radiographic evidence of acute fracture involving the left femur or the visualized left hemipelvis. The joint space of the left hip is maintained. The left knee joint is grossly preserved. There is degenerative sclerosis of the left sacroiliac joint. Soft tissue edema overlies left proximal femur. Surgical clips are present in the upper thigh bilaterally. There is atherosclerotic calcification of the left femoral artery. IMPRESSION: 1. There is no radiographic evidence of left femoral fracture. 2. Soft tissue edema is noted in the left upper thigh. Electronically signed by: Madhu Norwood M.D. 07/13/2023 3:56 PM MDM Narrative Patient was seen and evaluated as above in room D03a. Review was performed of triage nursing notes and vital signs. After obtaining a thorough history and physical examination the above work up was performed. Patient presents to us today for evaluation of injury status post mechanical fall. She fell yesterday. Most of her pain is in the left lateral hip area within the soft tissues of the thigh region. She is neurovascularly intact on examination. She is anticoagulated. 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 Options of care were discussed with the patient. IV access was established. Labs were drawn. There is no leukocytosis or concerning anemia. INR 1.6. Hyperglycemia 190. CT scan was obtained of the head, neck, chest, abdomen/pelvis. Results as above. X-ray was also obtained of the patient's left femur to further evaluate the left lower extremity beyond that that could be seen by CT pelvis. No fracture seen on the femur x-ray. In addition, left hand x-ray was also obtained and no acute bony abnormality was seen. CT scan of the brain was negative for acute process. CT C-spine without evidence of acute process. Chest, abdomen and pelvis does reveal a subcutaneous soft tissue contusion with hematoma seen in the left upper thigh with foci of active extravasation which does clinically correlate with her location of tenderness/pain. The patient is currently anticoagulated with an INR today of 1.6. Will hold off on reversing it at this time noting the patient's underlying comorbidities and indications for the anticoagulation. I do believe that inpatient management is warranted to trend and observe the patient's left thigh hematoma in the setting of anticoagulation. At 1729hrs I spoke with Dr. Salinas of orthopedics. No surgical intention at this time. Service will be consulted. Will observe in hospital. Case discussed with the hospitalist service. Please refer to further documentation regarding her stay. GCS: 15 In the evaluation and treatment of this patient the following differential diagnoses were entertained: Fracture, dislocation, subluxation, contusion, sprain, strain, hematoma, among others Impression & Plan Fall, Traumatic hematoma of left thigh, Anticoagulated Discharge Plan Visit Data Chief Complaint: Fall Stated Complaint: FALL, HIP, SHOULDER, BACK ED Provider: Juan Yee ED Midlevel Provider: Orlando You Discharge Problem: Fall, Traumatic hematoma of left thigh, Anticoagulated Patient Disposition: Admitted As Inpatient Condition: Good Discharge Instructions Interventions: ED Discharge Assessment Last Done: 07/13/23 21:28
[2023-07-13] MEDS: fentaNYL citrate PF 100 MCG/2 ML VIAL IV STA (15:48)
--- NOTE | 2023-07-13 15:56 | XRay Report ---
LEFT HAND 3 VIEWS CLINICAL HISTORY: Fall. Left hand injury. FINDINGS: 3 views of the left hand are obtained. No prior studies are available for comparison at the time of dictation. The skeletal structures are osteopenic. No fracture is seen. Minimal osteoarthrit ic change is noted throughout the wrist and hand. No erosive disease is seen. The overlying soft tiss ues are within normal limits. IMPRESSION: No acute bony abnormality is identified. Electronically signed by: Madhu Norwood M.D. 07/13/2023 3:54 PM
--- NOTE | 2023-07-13 15:57 | XRay Report ---
LEFT FEMUR 3 VIEWS CLINICAL HISTORY: Fall. Left leg injury. FINDINGS: AP, frog-leg, and lateral views of the left femur are obtained. No prior studies are availa ble for comparison at the time of dictation. The skeletal structures are osteopenic. There is no radi ographic evidence of acute fracture involving the left femur or the visualized left hemipelvis. The j oint space of the left hip is maintained. The left knee joint is grossly preserved. There is degenera tive sclerosis of the left sacroiliac joint. Soft tissue edema overlies left proximal femur. Surgical clips are present in the upper thigh bilaterally. There is atherosclerotic calcification of the left femoral artery. IMPRESSION: 1. There is no radiographic evidence of left femoral fracture. 2. Soft tissue edema is noted in the left upper thigh. Electronically signed by: Madhu Norwood M.D. 07/13/2023 3:56 PM
[2023-07-13 16:09] LABS: Basophils # (auto) 0.03 K/uL (0.00-0.20); Basophils % (auto) 0.3 %; Eosinophils # (auto) 0.02 K/uL (0.00-0.50); Eosinophils % (auto) 0.2 %; Hematocrit (blood only) 38.5 % (37.0-47.0); Hemoglobin 13.1 g/dl (12.0-16.0); Immature Granulocytes # (auto) 0.05 K/uL (0.01-0.20); Immature Granulocytes % (auto) 0.5 %; Lymphocytes # (auto) 2.14 K/uL (1.20-3.40); Lymphocytes % (auto) 21.9 %; Mean Corpuscular Hemoglobin 28.5 pg (25.0-34.0); Mean Corpuscular Volume 83.9 fL (80.0-100.0); Mean Platelet Volume 11.6 fL (9.4-12.4); Monocytes # (auto) 0.81 K/uL (0.11-0.59); Monocytes % (auto) 8.3 %; Neutrophils # (auto) 6.71 K/uL (1.40-6.50); Neutrophils % (auto) 68.8 %; Platelet Count 193 K/uL (130-400); RDW Coefficient of Variation 15.3 % (11.5-14.5); RDW Standard Deviation 46.4 fL (36.4-46.3); Red Blood Count 4.59 M/uL (4.20-5.40); White Blood Count 9.76 K/ul (4.8-10.8)
[2023-07-13 16:22] LABS: Alanine Aminotransferase 12 U/L (7-52); Albumin Globulin Ratio 1.1 (0.9-2); Albumin Level 4.2 gm/dl (3.4-5.0); Alkaline Phosphatase 63 U/L (34-104); Anion Gap 10 (3-11); Aspartate Aminotransferase 21 U/L (13-39); BUN Creatinine Ratio 23.3 (10-20); Bilirubin,Total 0.9 mg/dl (0.2-1.0); Blood Urea Nitrogen 17 mg/dl (6-23); Calcium 10.1 mg/dl (8.6-10.3); Carbon Dioxide 24 mmol/L (21-32); Chloride 104 mmol/L (98-107); Est GFR (African American) 92.1 ml/min; Est GFR (Non-African American) 79.4 ml/min; Globulin 3.7 gm/dl (2.5-4.0); Glucose 190 mg/dl (70-99(Fasting)); Potassium 3.6 mmol/L (3.5-5.1); Sodium 138 mmol/L (136-145); Total Protein 7.9 gm/dl (6.0-8.3)
[2023-07-13 16:34] LABS: INR 1.6 (0.9-1.1); Partial Thromboplastin Ratio 1.3; Partial Thromboplastin Time 35 Seconds (21-31); Prothrombin Time 16.9 Seconds (9.0-12.0)
[2023-07-13] MEDS: OPTIRAY 320 100ml IV ONE (16:37)
--- NOTE | 2023-07-13 16:49 | CT Scan Report ---
CT SCAN OF THE BRAIN WITHOUT IV CONTRAST CLINICAL HISTORY: Trauma. Fall. COMPARISON STUDY: CT of the brain dated 06/09/2022. TECHNIQUE: Unenhanced axial CT scan of the brain is performed from the vertex to the skull base. A do se lowering technique was utilized adhering to the principles of ALARA. CT DOSE: 2072.88 mGy.cm FINDINGS: Brain parenchyma: There is age-related involutional change noting moderate subcortical and periventri cular microangiopathic disease. There is no hemorrhage, mass effect, or evidence of acute territorial ischemia by CT criteria. Mineralization is noted in the basal ganglia. Mercado-white matter differentia tion is preserved. No extra-axial fluid collection is seen. Ventricles, sulci, cisterns: Prominent secondary to involutional change. Intracranial vasculature: There is atherosclerotic calcification of the cavernous carotid arteries. Calvarium: The skeletal structures are osteopenic. There is no depressed calvarial fracture. Sinuses and mastoids: The visualized paranasal sinuses are clear. The mastoid air cells are well pneu matized. Orbits: The bony orbits are grossly intact. IMPRESSION: There is no hemorrhage, mass effect, or evidence of acute territorial ischemia by CT karan garcia. ACT 112: Negative or not required by law. Electronically signed by: Madhu Norwood M.D. 07/13/2023 4:48 PM
--- NOTE | 2023-07-13 17:03 | CT Scan Report ---
CT SCAN OF THE CHEST, ABDOMEN, AND PELVIS WITH IV CONTRAST CLINICAL HISTORY: Trauma. Fall. COMPARISON STUDY: Chest x-ray dated 06/09/2022. Chest CT dated 10/09/2012. Abdominal CT dated 3. TECHNIQUE: Following the IV administration of 93 of Optir[employer] 320, CT scan of the chest, abdomen, and p shayla was performed from the thoracic inlet to the proximal femora. Images are reviewed in the axial, sagittal, and coronal planes. IV contrast was administered without complication. A dose lowering te chnique was utilized adhering to the principles of ALARA. FINDINGS: CHEST: Thyroid: The right lobe is atrophic versus surgically absent. The left lobe is mildly enlarged and he terogeneous. Thoracic aorta: Postsurgical changes noted involving the aortic root. There is atherosclerotic calcif ication of the thoracic aorta. The thoracic aorta is normal in caliber and demonstrates standard 3-ve ssel arch anatomy. No dissection is seen. Pulmonary vasculature: The pulmonary trunk is normal in caliber. There are no filling defects identif ied in the central pulmonary vessels to indicate pulmonary embolus. Note that this examination was no t protocoled for evaluation of the pulmonary arteries. Heart: A pacemaker is present in the left chest wall. The patient is status post midline sternotomy a nd cardiac valve surgery. The heart is normal in size and without pericardial effusion. The coronary arteries are densely calcified. Lungs and pleural spaces: Evaluation of the lung parenchyma is moderately degraded by motion artifact . There is no airspace consolidation, pleural effusion, or pneumothorax. Scarring/atelectasis is note d at both lung bases. The trachea and central airways are clear. There are scattered calcified granul omas. Mediastinum: There is no mediastinal hematoma or lymphadenopathy. April: Clear. Axillae: There is no axillary lymphadenopathy. Bony thorax: The skeletal structures are osteopenic. The bony thorax appears intact. There is a mild chronic superior compression deformity of T8. No lytic or blastic lesions are identified. ABDOMEN AND PELVIS: Liver: The contrast-enhanced liver is cirrhotic in morphology and heterogeneous in attenuation. There is hypertrophy of the left lobe and nodularity of the hepatic surface contour. There is no intrahepa tic biliary ductal dilatation. The hepatic veins and portal veins are patent. Gallbladder: Surgically absent noting clips in the gallbladder fossa. Spleen: Normal in size and attenuation. Pancreas: Unremarkable. Adrenal glands: Unremarkable. Kidneys: The contrast enhanced kidneys are normal in size and without hydronephrosis. The kidneys enh ance symmetrically. Abdominal vasculature: The abdominal aorta is normal in course and caliber noting moderate atheroscle rotic calcification. Bowel: There is mild colonic diverticulosis without CT evidence of acute diverticulitis. No bowel obs truction is seen. The appendix is not visualized. Peritoneum: There is no intraperitoneal free air or abdominal ascites. Lymphadenopathy: None. Pelvic viscera: The bladder is distended but otherwise normal in appearance. The uterus is surgically absent. No adnexal lesion is seen. Surgical clips are noted in the right groin. Skeletal structures: The skeletal structures are osteopenic. The lumbosacral spine, bony pelvis, and proximal femora appear intact. There is lumbosacral spondylosis. No lytic or blastic lesions are seen . Soft tissues: There is soft tissue contusion/edema with a subcutaneous hematoma seen in the left uppe r thigh overlying the greater trochanter of the left femur. This is best seen on axial image #330 and measures 6.8 x 6.1 x 3.2 cm. Small foci of active extravasation are seen inferiorly on images #343 # and 359. IMPRESSION: 1. There is no acute posttraumatic intrathoracic abnormality. 2. There is no airspace consolidation, pleural effusion, or pneumothorax. 3. There is no evidence of solid organ injury in the abdomen or pelvis. 4. A subcutaneous soft tissue contusion with hematoma is seen in the left upper thigh with foci of ac tive extravasation. 5. Cardiomegaly. 6. Cirrhotic liver morphology. 7. Additional findings as above. ACT 112: Negative or not required by law. Electronically signed by: Madhu Norwood M.D. 07/13/2023 5:01 PM
--- NOTE | 2023-07-13 17:03 | CT Scan Report ---
CT cervical spine wo con CLINICAL HISTORY: 77 years-old Female with Fall, anticoagulated, trauma. Acute neck pain status post fall COMPARISON: Head CT of same day, CTA neck 08/13/2079 TECHNIQUE: Multiple axial CT images of the cervical spine were obtained without contrast. A dose low ering technique was utilized adhering to the principles of ALARA. FINDINGS: Multilevel facet arthrosis is prominently moderate. Multilevel intervertebral disc space na rrowing, moderate to severe C4-C5. Posterior disc osteophyte complex formations most pronounced at C4 -C5 and C6-C7. No acute fracture or subluxation identified. The cervical soft tissues appear unremarkable. Subcentimeter hypodense left-sided thyroid nodules. At herosclerosis of the carotid bulbs. The visualized lung apices appear clear. IMPRESSION: No acute cervical spine fracture or subluxation. ACT 112: Negative or not required by law. The above report was generated using voice recognition software. It may contain grammatical, syntax o r spelling errors. Electronically signed by: Rojelio Griggs M.D. 07/13/2023 5:02 PM
[2023-07-13] MEDS ORDERED: ONDANSETRON INJ 2 MG/ML 2 ML VIAL IV PRN ×2 (18:04→19:58)
[2023-07-13] MEDS ORDERED: ALUMINUM/MAGNESIUM SUSP 30 ML UDC PO PRN ×2 (18:04→19:58)
[2023-07-13] MEDS ORDERED: POLYETHYLENE (MIRALAX) 17 GM PACK PO PRN ×2 (18:04→19:58)
[2023-07-13] MEDS ORDERED: MAGNESIUM HYDROXIDE SUSP 30 ML UDC PO PRN ×2 (18:04→19:58)
--- NOTE | 2023-07-13 18:09 | History & Physical Report ---
Date of Service July 13, 2023 Assessment & Plan (1) Thigh hematoma: (2) CAD (coronary artery disease): (3) S/P AVR (aortic valve replacement): (4) S/P MVR (mitral valve replacement): (5) Subtherapeutic anticoagulation: (6) Atrial fibrillation: (7) Pacemaker: (8) Diabetes mellitus, new onset: Plan Ms. Diana is a 77 year old female that presents to the ED s/p mechanical fall with L mid-thigh hematoma development. History of AVR/MVR and on Coumadin for anticoagulation; INR goal 2.5-3.5. No leukocytosis, INR 1.6 which is subtherapeutic given her AVR/MVR. Femur X-ray, CSCT and head CT negative. Chest CTA revealed cutaneous soft tissue contusion with hematoma is seen in the left upper thigh with foci of active extravasation. L mid-thigh lateral hematoma. Skin does not appear to present as rhabdo. Patient has positive sensation in LLE and no neuropathic symptoms. Patient will be admitted for further evaluation and management of her upper thigh hematoma. Given AVR/MVR will initiate Heparin gtt and consult Cardiology. Will provide pain control and also obtain and Ortho consult. Thigh hematoma: acute s/p mechanical fall (+) positive sensation in LLE and no neuropathic symptoms. Femur X-ray, CSCT and head CT negative Chest CTA revealed cutaneous soft tissue contusion with hematoma is seen in the left upper thigh with foci of active extravasation. Outlined hematoma with marker INR 1.6; Given AVR/MVR (outlined below) will initiate Heparin gtt and consult Cardiology. Pain control with scheduled Tylenol Orthopedics consult placed CAD: S/P AVR/MVR: subtherapeutic anticoagulation: Pacemaker s/p TBS: Complex cardiac history that includes a mechanical AVR in 2002 which was red[place] [address] Manley. CABG x3 with Jorge to the LAD, R internal mammary artery anastomosed as a free graft to the RCA and a single saphenous vein graft to the diagonal coronary artery. INR 1.6; Given AVR/MVR (outlined below) will initiate Heparin gtt and consult Cardiology. INR goal 2.5-3.5 Consult Cardiology given complexity of cardiac history and hematoma Atrial Fibrillation: Chronic Underwent an ablation at [facility]. Takes Coumadin as listed above--> placed on Heparin gtt given history as outlined above. INR goal 2.5-3.5 Takes Digoxin and Metoprolol;continue Insulin dependent diabetes mellitus, Type 2: Chronic Takes degludec; continue ACHS SSI while inpatient Check A1C in AM HLD: Chronic Takes Rosuvastatin; continue Depression: Chronic Takes Sertraline; continue Disposition: PCP: Dr. Garcia Code Status: Full Code VTE Prophylaxis: Started Heparin gtt I spent a total of 85 minutes coordinating, documenting, and providing care for this patient excluding time spent in the performance of separately billed services. All of the aforementioned completed while collaborating with the assigned attending physician for a full treatment plan. Please see their addendum for further details. History of Present Illness Chief Complaint: mechanical fall Primary Care Provider: Brigitte Garcia MD Ms. Diana is a 77 year old female that presents to the ED s/p mechanical fall. She was sitting on her electric chair and her haitian caught on the edge of the chair and she fell. She also uses a walker to ambulate. History of AVR/MVR and on Coumadin for anticoagulation; INR goal 2.5-3.5. She was at the Coumadin clinic last Thursday and has not had any recent changes to her Coumadin dosing. In the ED, no leukocytosis, INR 1.6 which is subtherapeutic given her AVR/MVR. Femur X-ray, CSCT and head CT negative. Chest CTA revealed cutaneous soft tissue contusion with hematoma is seen in the left upper thigh with foci of active extravasation. As mentioned, she does have a complex cardiac history that includes a mechanical AVR in 2002 which was red[place] [address] Manley. She also had a CABG x3 with Jorge to the LAD, R internal mammary artery anastomosed as a free graft to the RCA and a single saphenous vein graft to the diagonal coronary artery. She also underwent an ablation at [facility]. Pt denies CARDENAS, dizziness, SOB, chest pain, palpitations, abdominal pain or tenderness, other recent falls or trauma. On examination, patient is AAOx4 and able to answer all questions appropriately. Pt L mid-thigh lateral hematoma. Skin does not appear to present as rhabdo. Patient has positive sensation in LLE and no neuropathic symptoms. Patient will be admitted for further evaluation and management of her upper thigh hematoma. Given AVR/MVR will initiate Heparin gtt and consult Cardiology. Will provide pain control and also obtain and Ortho consult. Allergies Allergy/AdvReac Type Severity Reaction Status Date / Time lidocaine Allergy Intermediate Rash/hives Verified 03/30/23 10:11 [From Aspercreme (lidocaine)] with cream Sulfa (Sulfonamide Allergy Intermediate Rash, hives Verified 03/30/23 10:11 Antibiotics) latex Allergy Unknown Wheezing Verified 03/30/23 10:11 levothyroxine AdvReac Intermediate Tachycardia Verified 03/30/23 10:11 Home Medications Medication Instructions Recorded Confirmed Type furosemide 20 mg tablet 20 mg PO UD 05/27/18 07/13/23 History nitroglycerin 0.4 mg sublingual 0.4 mg sublingual DIRECTED PRN 05/27/18 07/13/23 History tablet (Nitrostat) Chest Pain sertraline 50 mg tablet 50 mg PO QAM 04/05/20 07/13/23 History digoxin 125 mcg (0.125 mg) tablet 125 mcg PO QAM 08/14/20 07/13/23 History metoprolol tartrate 25 mg tablet 50 mg PO AMHS 08/14/20 07/13/23 History cholecalciferol (vitamin D3) 25 50 mcg PO QAM 03/08/21 07/13/23 History mcg (1,000 unit) tablet (Vitamin D3) amoxicillin 500 mg capsule 2,000 mg PO ONCE PRN Prophylaxis 06/09/22 07/13/23 History aspirin 81 mg tablet,delayed 81 mg PO DAILY 06/09/22 07/13/23 History release fluticasone propionate 50 1 spray intranasal HS PRN otjer 06/09/22 07/13/23 His tory mcg/actuation nasal spray,suspension rosuvastatin 5 mg tablet 5 mg PO DAILY 06/09/22 07/13/23 History warfarin 1 mg tablet 2 - 3 mg PO DAILY 06/09/22 07/13/23 History blood-glucose meter (OneTouch 08/13/22 03/30/23 History Verio Flex Meter) empagliflozin 25 mg tablet 25 mg PO QAM 08/13/22 07/13/23 History (Jardiance) pen needle, diabetic 32 gauge x #100 ea 08/14/22 03/30/23 Rx 1/4" (Comfort EZ Pen [place]) insulin degludec 100 unit/mL (3 26 unit subcut DAILY 11/17/22 07/13/23 History mL) subcutaneous pen (Tresiba FlexTouch U-100 insulin) solifenacin 5 mg tablet (Vesicare) 5 mg PO DAILY #30 tabs 07/03/23 07/13/23 Rx dicyclomine 10 mg capsule 10 mg PO DAILY PRN Other 07/13/23 07/13/23 History Past Med/Surg History Problem List Thigh hematoma Mixed incontinence Vitamin D deficiency Loss of protective sensation of skin of foot Diabetic peripheral neuropathy associated with type 2 diabetes mellitus Type 2 diabetes mellitus Dizziness Gastroenteritis (Acute) Abdominal pain (Acute) Elevated troponin I level (Acute) Dyspnea (Acute) Acute hyperglycemia (Acute) Fatigue (Acute) Subtherapeutic anticoagulation (Acute) Viral URI Pacemaker placed 04/2020; tachy-lindy syndrome; [employer]; last checked 1 mo ago Diabetes mellitus, new onset Atrial fibrillation follows with Dr. Almeida; h/o mult cardioversions; on warfarin History of cholecystectomy (Chronic) DVT prophylaxis Atrial flutter pt with atypical atrial flutter symptomatic with RVR. Agree with DCCV tomorrow-would continue BB and Tikosyn. If she continues to have recurrent frequent episodes then recommend ppm and AVN ablation. Full EP Consult dictated Tachycardia-bradycardia syndrome IBS (irritable bowel syndrome) (Chronic) History of bilateral breast reduction surgery (Chronic) History of partial thyroidectomy (Chronic) Paroxysmal atrial flutter (Chronic) CAD (coronary artery disease) (Chronic) Rheumatic heart disease, on March 04, 2002 patient underwent aortic valve replacement and mitral valve replacement along with CABG x3 with a KIRK to the LAD, right internal mammary artery anastomosis as a free graft to the RCA and a single saphenous vein graft to the diagonal coronary artery and radiofrequency ablation of atrial fibrillation pathways at [facility]. 01/2011 admitted to [facility] secondary to symptomatically A. fib flutter which patient underwent DCCV. Sotalol was started but stopped due to intolerance secondary to nausea and bradycardia. July 2011 Tikosyn loading and successful repeat DCCV. 01/08/12 underwent cardiac catheterization at [facility] and remained on warfarin. Noted to have single-vessel disease 70% mid LAD, 2 of the 3 bypasses were patent. There was obstruction of the SVG to diagonal however, the red devil diagonal had no significant obstruction. 12/24/12 hospitalized at [facility] and underwent redo of mechanical MVR By Dr. Manley. Postop day flutter noted. Tikosyn was discontinued and sent home on amiodarone and metoprolol. 05/3015 admitted to [facility] secondary to symptomatically flutter and tikosyn re-initiated. 11/2015 admitted to [facility] secondary to recurrent symptomatic paroxysmal atrial flutter with RVR, status post DCCV. Anticoagulation goal of INR 2.5 to 3.5 (Chronic) CKD (chronic kidney disease), stage II (Chronic) pt denies. HLD (hyperlipidemia) (Chronic) Liver cirrhosis secondary to BROWNE (Chronic) Hypothyroidism (Chronic) no medication S/P AVR (aortic valve replacement) (Chronic) "Mechanical 2002 On 05/25/15 15:41 Mel Quevedo wrote "Mechanical 2002" S/P MVR (mitral valve replacement) (Chronic) "Mechanical 2002" plus a revision 2012 S/P NELLY (total abdominal hysterectomy) (Chronic) LSO S/P cholecystectomy (Chronic) H/O esophagogastroduodenoscopy (Chronic) Hx of appendectomy (Chronic) Medical History Thigh hematoma Pacemaker placed 04/2020; tachy-lindy syndrome; [employer]; last checked 1 mo ago History of transesophageal echocardiography (ASHLEY) Osteoarthritis Anxiety Depression On anticoagulant therapy History of cardioversion multiple Atrial fibrillation follows with Dr. Almeida; h/o mult cardioversions; on warfarin IBS (irritable bowel syndrome) Paroxysmal atrial flutter Atrial flutter Rheumatic heart disease Hypothyroidism no medication Liver cirrhosis secondary to BROWNE HLD (hyperlipidemia) HTN (hypertension) CKD (chronic kidney disease), stage II pt denies. Anticoagulation goal of INR 2.5 to 3.5 CAD (coronary artery disease) Rheumatic heart disease, on March 04, 2002 patient underwent aortic valve replacement and mitral valve replacement along with CABG x3 with a KIRK to the LAD, right internal mammary artery anastomosis as a free graft to the RCA and a single saphenous vein graft to the diagonal coronary artery and radiofrequency ablation of atrial fibrillation pathways at [facility]. 01/2011 admitted to [facility] secondary to symptomatically A. fib flutter which patient underwent DCCV. Sotalol was started but stopped due to intolerance secondary to nausea and bradycardia. July 2011 Tikosyn loading and successful repeat DCCV. 01/08/12 underwent cardiac catheterization at [facility] and remained on warfarin. Noted to have single-vessel disease 70% mid LAD, 2 of the 3 bypasses were patent. There was obstruction of the SVG to diagonal however, the red devil diagonal had no significant obstruction. 12/24/12 hospitalized at [facility] and underwent redo of mechanical MVR By Dr. Manley. Postop day flutter noted. Tikosyn was discontinued and sent home on amiodarone and metoprolol. 05/3015 admitted to [facility] secondary to symptomatically flutter and tikosyn re-initiated. 11/2015 admitted to [facility] secondary to recurrent symptomatic paroxysmal atrial flutter with RVR, status post DCCV. Surgical History History of cardiac cath 2002 & ~2013 [facility] History of bilateral tubal ligation History of cataract surgery bilateral History of tonsillectomy History of colonoscopy History of bilateral breast reduction surgery History of partial thyroidectomy Hx of appendectomy History of cholecystectomy Hx of CABG x3 vessels (2002) at [facility] H/O esophagogastroduodenoscopy S/P cholecystectomy S/P NELLY (total abdominal hysterectomy) LSO S/P MVR (mitral valve replacement) "Mechanical 2002" plus a revision 2012 S/P AVR (aortic valve replacement) "Mechanical 2002 On 05/25/15 15:41 Mel Quevedo wrote "Mechanical 2002" Family History Mother Colorectal cancer Father FHx: bladder cancer Other No family history of adverse response to anesthesia Social History Smoking Status: Unknown if ever smoked Second Hand Exposure: No; Do You Dip or Chew Tobacco: No; Hx Alcohol Use: Yes (stopped after pacemaker) Hx Substance Use: No Preferred Language: Yoruba Communication Ability: Effective Production Line Operator Required: No Beliefs That Will Affect Care: None Current Living Situation: Alone Current Living Situation Comment: [place] (independent living) Feels Safe at Home: Yes Assistive Devices: Wheelchair Review of Systems Review of Systems: Neuro: (+) Falls, trauma, (-) slurred speech HEENT: (-) CARDENAS, dizziness, dysphagia, visual or auditory changes CV: (-) CP, palpitations, swelling Resp: (-) SOB GI: (-) appetite changes, N/V/D, bowel changes : (-) urinary changes Skin: (-) rashes. (+) bruising on left thigh Psych: (-) anxiety, depression Physical Exam Physical Exam: Otherwise see Dr. Donato attestation for further details Musculoskeletal: 5/5 B/L UE strength, 5/5 B/L LE strength. No gait disturbance Skin: (-) rashes , (-) erythema. (+) ecchymosis lateral L thigh Psych: euthymic mood Results & Data Results & Data Vital Signs (Past 12 Hours) Vital Signs Temp Pulse Resp BP Pulse Ox O2 Del Method 07/13/23 15:10 96 Room Air 07/13/23 14:51 37.3 C 78 19 135/64 97 Room Air Laboratory Results Short CBC 07/13/23 Range/Units 15:50 WBC 9.76 (4.8-10.8) K/ul Hgb 13.1 (12.0-16.0) g/dl Hct 38.5 (37.0-47.0) % Plt Count 193 (130-400) K/uL BMP 07/13/23 15:50 Sodium 138 Potassium 3.6 Chloride 104 Carbon Dioxide 24 BUN 17 Creatinine 0.73 Glucose 190 H Calcium 10.1 Liver Function 07/13/23 Range/Units 15:50 Total Bilirubin 0.9 (0.2-1.0) mg/dl AST 21 (13-39) U/L ALT 12 (7-52) U/L Alkaline Phosphatase 63 (34-104) U/L Albumin 4.2 (3.4-5.0) gm/dl Diagnostic Findings Abdomen/Pelvis CT 07/13/23 15:09 CT SCAN OF THE CHEST, ABDOMEN, AND PELVIS WITH IV CONTRAST CLINICAL HISTORY: Trauma. Fall. COMPARISON STUDY: Chest x-ray dated 06/09/2022. Chest CT dated 10/09/2012. Abdo jhoana CT dated 06/09/2022. TECHNIQUE: Following the IV administration of 93 of Optiray 320, CT scan of the chest, abdomen, and pelvis was performed from the thoracic inlet to the proximal femora. Images are reviewed in the axial, sagittal, and coronal planes. IV contrast was administered without complication. A dose lowering technique was utilized adhering to the principles of ALARA. FINDINGS: CHEST: Thyroid: The right lobe is atrophic versus surgically absent. The left lobe is mildly enlarged and heterogeneous. Thoracic aorta: Postsurgical changes noted involving the aortic root. There is atherosclerotic calcification of the thoracic aorta. The thoracic aorta is normal in caliber and demonstrates standard 3-vessel arch anatomy. No dissection is seen. Pulmonary vasculature: The pulmonary trunk is normal in caliber. There are no filling defects identified in the central pulmonary vessels to indicate pulmonary embolus. Note that this examination was not protocoled for evaluation of the pulmonary arteries. Heart: A pacemaker is present in the left chest wall. The patient is status post midline sternotomy and cardiac valve surgery. The heart is normal in size and without pericardial effusion. The coronary arteries are densely calcified. Lungs and pleural spaces: Evaluation of the lung parenchyma is moderately degraded by motion artifact. There is no airspace consolidation, pleural effusion, or pneumothorax. Scarring/atelectasis is noted at both lung bases. The trachea and central airways are clear. There are scattered calcified granulomas. Mediastinum: There is no mediastinal hematoma or lymphadenopathy. April: Clear. Axillae: There is no axillary lymphadenopathy. Bony thorax: The skeletal structures are osteopenic. The bony thorax appears intact. There is a mild chronic superior compression deformity of T8. No lytic or blastic lesions are identified. ABDOMEN AND PELVIS: Liver: The contrast-enhanced liver is cirrhotic in morphology and heterogeneous in attenuation. There is hypertrophy of the left lobe and nodularity of the hepatic surface contour. There is no intrahepatic biliary ductal dilatation. The hepatic veins and portal veins are patent. Gallbladder: Surgically absent noting clips in the gallbladder fossa. Spleen: Normal in size and attenuation. Pancreas: Unremarkable. Adrenal glands: Unremarkable. Kidneys: The contrast enhanced kidneys are normal in size and without hydronephrosis. The kidneys enhance symmetrically. Abdominal vasculature: The abdominal aorta is normal in course and caliber noting moderate atherosclerotic calcification. Bowel: There is mild colonic diverticulosis without CT evidence of acute diverticulitis. No bowel obstruction is seen. The appendix is not visualized. Peritoneum: There is no intraperitoneal free air or abdominal ascites. Lymphadenopathy: None. Pelvic viscera: The bladder is distended but otherwise normal in appearance. The uterus is surgically absent. No adnexal lesion is seen. Surgical clips are noted in the right groin. Skeletal structures: The skeletal structures are osteopenic. The lumbosacral spine, bony pelvis, and proximal femora appear intact. There is lumbosacral spondylosis. No lytic or blastic lesions are seen. Soft tissues: There is soft tissue contusion/edema with a subcutaneous hematoma seen in the left upper thigh overlying the greater trochanter of the left femur. This is best seen on axial image #330 and measures 6.8 x 6.1 x 3.2 cm. Small foci of active extravasation are seen inferiorly on images #343 # and 359. IMPRESSION: 1. There is no acute posttraumatic intrathoracic abnormality. 2. There is no airspace consolidation, pleural effusion, or pneumothorax. 3. There is no evidence of solid organ injury in the abdomen or pelvis. 4. A subcutaneous soft tissue contusion with hematoma is seen in the left upper thigh with foci of active extravasation. 5. Cardiomegaly. 6. Cirrhotic liver morphology. 7. Additional findings as above. ACT 112: Negative or not required by law. Electronically signed by: Madhu Norwood M.D. 07/13/2023 5:[address] 07/13/23 15:09 CT cervical spine wo con CLINICAL HISTORY: 77 years-old Female with Fall, anticoagulated, trauma. Acute neck pain status post fall COMPARISON: Head CT of same day, CTA neck 08/13/2079 TECHNIQUE: Multiple axial CT images of the cervical spine were obtained without contrast. A dose lowering technique was utilized adhering to the principles of ALARA. FINDINGS: Multilevel facet arthrosis is prominently moderate. Multilevel intervertebral disc space narrowing, moderate to severe C4-C5. Posterior disc osteophyte complex formations most pronounced at C4-C5 and C6-C7. No acute fracture or subluxation identified. The cervical soft tissues appear unremarkable. Subcentimeter hypodense left- sided thyroid nodules. Atherosclerosis of the carotid bulbs. The visualized lung apices appear clear. IMPRESSION: No acute cervical spine fracture or subluxation. ACT 112: Negative or not required by law. The above report was generated using voice recognition software. It may contain grammatical, syntax or spelling errors. Electronically signed by: Rojelio Griggs M.D. 07/13/2023 5:[address] 07/13/23 15:09 CT SCAN OF THE CHEST, ABDOMEN, AND PELVIS WITH IV CONTRAST CLINICAL HISTORY: Trauma. Fall. COMPARISON STUDY: Chest x-ray dated 06/09/2022. Chest CT dated 10/09/2012. Abdominal CT dated 06/09/2022. TECHNIQUE: Following the IV administration of 93 of Optiray 320, CT scan of the chest, abdomen, and pelvis was performed from the thoracic inlet to the proximal femora. Images are reviewed in the axial, sagittal, and coronal planes. IV contrast was administered without complication. A dose lowering technique was utilized adhering to the principles of ALARA. FINDINGS: CHEST: Thyroid: The right lobe is atrophic versus surgically absent. The left lobe is mildly enlarged and heterogeneous. Thoracic aorta: Postsurgical changes noted involving the aortic root. There is atherosclerotic calcification of the thoracic aorta. The thoracic aorta is normal in caliber and demonstrates standard 3-vessel arch anatomy. No dissection is seen. Pulmonary vasculature: The pulmonary trunk is normal in caliber. There are no filling defects identified in the central pulmonary vessels to indicate pulmonary embolus. Note that this examination was not protocoled for evaluation of the pulmonary arteries. Heart: A pacemaker is present in the left chest wall. The patient is status post midline sternotomy and cardiac valve surgery. The heart is normal in size and without pericardial effusion. The coronary arteries are densely calcified. Lungs and pleural spaces: Evaluation of the lung parenchyma is moderately degraded by motion artifact. There is no airspace consolidation, pleural effusion, or pneumothorax. Scarring/atelectasis is noted at both lung bases. The trachea and central airways are clear. There are scattered calcified granulomas. Mediastinum: There is no mediastinal hematoma or lymphadenopathy. April: Clear. Axillae: There is no axillary lymphadenopathy. Bony thorax: The skeletal structures are osteopenic. The bony thorax appears intact. There is a mild chronic superior compression deformity of T8. No lytic or blastic lesions are identified. ABDOMEN AND PELVIS: Liver: The contrast-enhanced liver is cirrhotic in morphology and heterogeneous in attenuation. There is hypertrophy of the left lobe and nodularity of the hepatic surface contour. There is no intrahepatic biliary ductal dilatation. The hepatic veins and portal veins are patent. Gallbladder: Surgically absent noting clips in the gallbladder fossa. Spleen: Normal in size and attenuation. Pancreas: Unremarkable. Adrenal glands: Unremarkable. Kidneys: The contrast enhanced kidneys are normal in size and without hydronephrosis. The kidneys enhance symmetrically. Abdominal vasculature: The abdominal aorta is normal in course and caliber noting moderate atherosclerotic calcification. Bowel: There is mild colonic diverticulosis without CT evidence of acute diverticulitis. No bowel obstruction is seen. The appendix is not visualized. Peritoneum: There is no intraperitoneal free air or abdominal ascites. Lymphadenopathy: None. Pelvic viscera: The bladder is distended but otherwise normal in appearance. The uterus is surgically absent. No adnexal lesion is seen. Surgical clips are noted in the right groin. Skeletal structures: The skeletal structures are osteopenic. The lumbosacral spine, bony pelvis, and proximal femora appear intact. There is lumbosacral spondylosis. No lytic or blastic lesions are seen. Soft tissues: There is soft tissue contusion/edema with a subcutaneous hematoma seen in the left upper thigh overlying the greater trochanter of the left femur. This is best seen on axial image #330 and measures 6.8 x 6.1 x 3.2 cm. Small foci of active extravasation are seen inferiorly on images #343 # and 359. IMPRESSION: 1. There is no acute posttraumatic intrathoracic abnormality. 2. There is no airspace consolidation, pleural effusion, or pneumothorax. 3. There is no evidence of solid organ injury in the abdomen or pelvis. 4. A subcutaneous soft tissue contusion with hematoma is seen in the left upper thigh with foci of active extravasation. 5. Cardiomegaly. 6. Cirrhotic liver morphology. 7. Additional findings as above. ACT 112: Negative or not required by law. Electronically signed by: Madhu Norwood M.D. 07/13/2023 5:01 PM Hand X-Ray 07/13/23 15:09 LEFT HAND 3 VIEWS CLINICAL HISTORY: Fall. Left hand injury. FINDINGS: 3 views of the left hand are obtained. No prior studies are available for comparison at the time of dictation. The skeletal structures are osteopenic. No fracture is seen. Minimal osteoarthritic change is noted throughout the wrist and hand. No erosive disease is seen. The overlying soft tissues are within normal limits. IMPRESSION: No acute bony abnormality is identified. Electronically signed by: Madhu Norwood M.D. 07/13/2023 3:[address] 07/13/23 15:09 CT SCAN OF THE BRAIN WITHOUT IV CONTRAST CLINICAL HISTORY: Trauma. Fall. COMPARISON STUDY: CT of the brain dated 06/09/2022. TECHNIQUE: Unenhanced axial CT scan of the brain is performed from the vertex to the skull base. A dose lowering technique was utilized adhering to the principles of ALARA. CT DOSE: 2072.88 mGy.cm FINDINGS: Brain parenchyma: There is age-related involutional change noting moderate subcortical and periventricular microangiopathic disease. There is no hemorrhage, mass effect, or evidence of acute territorial ischemia by CT criteria. Mineralization is noted in the basal ganglia. Mercado-white matter differentiation is preserved. No extra-axial fluid collection is seen. Ventricles, sulci, cisterns: Prominent secondary to involutional change. Intracranial vasculature: There is atherosclerotic calcification of the cavernous carotid arteries. Calvarium: The skeletal structures are osteopenic. There is no depressed calvarial fracture. Sinuses and mastoids: The visualized paranasal sinuses are clear. The mastoid air cells are well pneumatized. Orbits: The bony orbits are grossly intact. IMPRESSION: There is no hemorrhage, mass effect, or evidence of acute territorial ischemia by CT criteria. ACT 112: Negative or not required by law. Electronically signed by: Madhu Norwood M.D. 07/13/2023 4:48 PM Femur X-Ray 07/13/23 15:10 LEFT FEMUR 3 VIEWS CLINICAL HISTORY: Fall. Left leg injury. FINDINGS: AP, frog-leg, and lateral views of the left femur are obtained. No prior studies are available for comparison at the time of dictation. The skeletal structures are osteopenic. There is no radiographic evidence of acute fracture involving the left femur or the visualized left hemipelvis. The joint space of the left hip is maintained. The left knee joint is grossly preserved. There is degenerative sclerosis of the left sacroiliac joint. Soft tissue edema overlies left proximal femur. Surgical clips are present in the upper thigh bilaterally. There is atherosclerotic calcification of the left femoral artery. IMPRESSION: 1. There is no radiographic evidence of left femoral fracture. 2. Soft tissue edema is noted in the left upper thigh. Electronically signed by: Madhu Norwood M.D. 07/13/2023 3:56 PM Code Status & VTE Plan Code Status Full Code in the event of cardiac or respiratory arrest VTE Prophylaxis Plan VTE Prophylaxis will be ordered: Yes Supervising Physician Co-Signing Physician Notes I have seen and discussed the case with the collaborating advanced practitioner. I agree with the above H&P. I have reviewed and confirmed the patients medical history, the findings on physical examination, and the patients diagnosis and treatment plan with Kala HALE and agree with the information documented. In short, Ms. Diana is a 77 yo woman with complex cardiac history notable for CAD s/p bypass, rheumatic valve disease s/p AVR and MVR on coumadin, atrial fribrillation/flutter c/b tachybrady symdrome s/p pacemaker who has been in no [facility] state of health until mechanical fall from chair this morning. Patient reports blanket was stuck on her electric chair and pulled her backwards as she tried to stand--leading her to fall to floor. GENERAL APPEARANCE: AxOx4, generally well-appearing female for age , no acute distress outside of bouts of pain from left hip HEENT: NC, AT. MMM. EOMI, clear conjunctiva, oropharynx clear. NECK: Supple without lymphadenopathy. No stiffness or restricted ROM. HEART: regular, audible click of valves, ZUHAIR? LUNGS: CTAB, moving air well. No crackles or wheezes are heard. ABDOMEN: Soft, nontender, nondistended with good bowel sounds heard. BACK: No CVAT, no obvious deformity. EXTREMITIES: Without cyanosis, clubbing or edema. large left sided hematoma, area of swelling outline with marker pulses, motor sensation intact NEUROLOGICAL: Grossly nonfocal. Alert and oriented, moving all 4 extremities. CN not formally tested but appear grossly intact. #Thigh hematoma -Ortho consult Hgb stable Trend hgb as AC has to be prioritized iso valve replacements #Subtherapeutic INR #AVR #MVR -INR goal 2.5-3.5, INR 1.6 -reports compliance -Heparin drip, low dose--trend cbc, monitor hematoma #A fib/flutter continue 0.125mg dig, continue metorpolol XL 50mg BID rest of plan as above I spent a total of minutes coordinating, documenting, and providing care for this patient excluding time spent in the performance of separately billed services. All of the aforementioned completed outside of collaborating with the assigned advanced practitioner for a full treatment plan. I have reviewed the advanced practitioner's documentation, and I agree with, and take responsibility for the plan of care (2) CAD (coronary artery disease) Associated angina: without angina Coronary Disease-Associated Artery/Lesion type: red devil artery [place] vs. transplanted heart: red devil heart Qualified Code(s): I25.10 - Atherosclerotic heart disease of red devil coronary artery without angina pectoris
[2023-07-13] MEDS: HEPARIN SODIUM/DEXTROSE 25,000 UNITS/500 ML BAG IV SCH (19:45)
[2023-07-13] MEDS: Heparin IV Adult Wt-Based Standard *NO* INITIAL Bolus Protocol IV STA (19:53)
[2023-07-13] MEDS ORDERED: ACETAMINOPHEN 325 MG TAB PO PRN (19:58)
[2023-07-13] MEDS: ACETAMINOPHEN 1,000 MG/100 ML VIAL IV SCH (20:20)
[2023-07-13] MEDS ORDERED: FLUTICASONE PROPIONATE NA SPR 16 GM BTL PRN (22:42)
[2023-07-13] MEDS ORDERED: NITROGLYCERIN SL 0.4 MG/TAB TAB SL PRN (22:42)
[2023-07-13] MEDS ORDERED: GLUCOSE 40% GEL 15 GM TUBE PO PRN (22:44)
[2023-07-13] MEDS ORDERED: CARBOHYDRATES FOR HYPOGLYCEMIA PO PRN (22:44)
[2023-07-13] MEDS ORDERED: GLUCAGON FOR INJ 1 MG VIAL SQ PRN (22:44)
[2023-07-13] MEDS ORDERED: PHARMACY GLYCEMIC MGMT CONSULT PRN (22:44)
[2023-07-13] MEDS ORDERED: DEXTROSE 50% 50 ML SYRINGE IV PRN (22:44)
[2023-07-13] MEDS ORDERED: GLUCOSE 10 TAB/TUBE PO PRN (22:44)
[2023-07-13] MEDS: oxyCODONE HCL IR 5 MG TAB (IMMEDIATE RELEASE) PO PRN (23:30)
[2023-07-13] MEDS: INSULIN ASPART PER UNIT CHARGE SC SCH (23:31)
[2023-07-14 02:20] LABS: Hemoglobin 12.4 g/dl (12.0-16.0); Mean Corpuscular Hemoglobin 28.7 pg (25.0-34.0); Mean Corpuscular Hgb Conc 34.4 g/dL (32.0-36.0); Mean Corpuscular Volume 83.3 fL (80.0-100.0); Platelet Count 194 K/uL (130-400); RDW Coefficient of Variation 15.3 % (11.5-14.5); Red Blood Count 4.32 M/uL (4.20-5.40); White Blood Count 10.19 K/ul (4.8-10.8)
[2023-07-14 02:23] LABS: ANTI-Xa, UFH(UnfractionatedHep 0.34 IU/ml (0.3-0.7)
[2023-07-14 02:27] LABS: INR 1.4 (0.9-1.1); Prothrombin Time 14.7 Seconds (9.0-12.0)
[2023-07-14 02:38] LABS: BUN Creatinine Ratio 21.1 (10-20); Calcium 9.5 mg/dl (8.6-10.3); Creatinine Clr Calc Pharmacy 52.5 ml/min; Est GFR (African American) 95.2 ml/min; Est GFR (Non-African American) 82.2 ml/min; Phosphorus 3.4 mg/dl (2.5-4.9); Potassium 3.4 mmol/L (3.5-5.1)
[2023-07-14 06:48] LABS: Estimated Average Glucose 197 mg/dl; Hemoglobin A1C 8.5 % (4.5-5.6)
--- OUTSIDE RECORDS SUMMARY | 2023-07-14 07:21 | External Medical Summary | Summary of Care ---
Author Name Unknown Organization [facility] Address [address] [facility] [place] [address] Phone [phone] Care Team Providers Care Cake Winder Name Role Phone Desi Garcia MD Primary Care Provider [phone] Encounter Details Date Type Department Care Team (Late st Contact Info) Description 07/08/2023 Result Scan Unspecified Department Dillon Almeida, DO [address] [place] [address] <No scans attached> Allergies Active Allergy Reactions Criticality Noted Date Comments Lactose Diarrhea 12/02/2018 Latex Wheezing Medium 11/16/2008 Levothyroxine Tachycardia 04/10/2015 Lidocaine Hives 04/16/2016 Sulfa Antibiotics Hives,Rash Low 11/16/2008 documented as of this encounter (statuses as of 07/08/2023) Medications Medication Sig Dispensed Refills Start Date End Date Status Acetaminophen ER 650 MG Oral Tablet Extended Release Take 1 Tablet by mouth every 8 hours as needed for Fever. 0 Active Loperamide HCl 2 MG Oral Capsule (Imodium) Take 1 Capsule by mouth 4 times a day as needed for Diarrhea. 0 Active OneTouch Delica Lancets 33G Use up to 1-2 times daily to check sugars 200 Each 1 2 Active Aspirin 81 MG Oral Tablet Delayed Release Take 1 Tablet by mouth in the morning. 0 Active Insulin Pen Needle 32G X 6 MM USE DIRECTED FOR DAILY INSULIN ADMINISTRATION 100 Each 3 3 08/14/19 24 Active Empagliflozin 25 MG Oral Tablet (Jardiance) TAKE ONE TABLET BY MOUTH EVERY MORNING 100 Tablet 3 3 07/19/19 24 Active Dicyclomine HCl 10 MG Oral Capsule (Bentyl) TAKE ONE CAPSULE BY MOUTH TWICE A DAY NEEDED ABDOMINAL CRAMPING 200 Capsule 1 3 08/27/19 24 Active Furosemide 20 MG Oral Tablet (Lasix)Indication s:Paroxysmal atrial flutter (HCC),Essential hypertension with goal blood pressure less than 140/90 One tablet one day alternating with two tablets the next day 180 Tablet 3 3 Active Montelukast Sodium 10 MG Oral Tablet (Singulair) Take 1 Tablet by mouth at bedtime. 90 Tablet 3 3 Active Potassium Chloride ER 10 MEQ Oral Capsule Extended Release TAKE ONE CAPSULE BY MOUTH EVERY MORNING 90 Capsule 1 3 12/25/19 24 Active Warfarin Sodium 1 MG Oral Tablet (Coumadin)Indicat ions:S/P aortic valve replacement TAKE TWO TO THREE TABLETS BY MOUTH DAILY DIRECTED BY ANTICOAGULATION CLINIC 300 Tablet 2 3 01/14/20 24 Active Digoxin 125 MCG Oral Tablet (Lanoxin)Indicati ons:Persistent atrial fibrillation (HCC) TAKE ONE TABLET BY MOUTH EVERY MORNING 100 Tablet 3 3 01/14/20 24 Active Sertraline HCl 50 MG Oral Tablet (Zoloft)Indicatio ns:Anxiety state TAKE ONE TABLET BY MOUTH EVERY MORNING 100 Tablet 3 3 01/14/20 24 Active Rosuvastatin Calcium 5 MG Oral Tablet (Crestor) TAKE ONE TABLET BY MOUTH EVERY DAY 100 Tablet 3 3 01/14/20 24 Active Metoprolol Succinate ER 50 MG Oral Tablet Extended Release 24 Hour (Toprol XL) Take 1 Tablet by mouth 2 times a day. 180 Tablet 3 3 Active Tresiba FlexTouch 100 UNIT/ML Subcutaneous Solution Pen-injector Inject 22 Units under the skin in the morning. 15 mL 2 4 Active Additional Information Patient taking differently: 26 UnitsSubcutaneous Daily(AM), Reported on 06/26/2023 Nitroglycerin 0.4 MG Sublingual Tablet Sublingual (Nitrostat)Indica tions:Coronary artery disease involving elim ira coronary artery of elim ira heart without angina pectoris Place 1 Tablet under the tongue every 5 minutes as needed for Pain, Chest. 25 Tablet 3 4 Active SonicbidsStyle Magnus 2 Sensor Use as directed. Supplied by [employer] 0 Active documented as of this encounter (statuses as of 07/08/2023) Active Problems Problem Noted Date Diagnosed Date History of UT (myocardial infarction) 12/30/2022 Presence of combination inte rnal cardiac defibrillator (ICD) and pacemaker 09/30/2022 Last Assessment & Plan: [employer] 5076 Caps[employer] Novus MRI Implanted on 2020-04-06 Permanent atrial fibrillation 06/20/2022 Last Assessment & Plan: Rate controlled metoprolol and dig Coumadin stroke prophylaxis Essential hypertension with goal blood pressure less than 140/90 06/20/2022 Age-related osteoporosis wit hout current pathological fracture 06/20/2022 Last Assessment & Plan: Stable Diabetes mellitus with peripheral vascular disea se 02/10/2022 Last Assessment & Plan: Current Status: "Stable" for patient / At or near baseline Degree of Condition Awareness: Demonstrates very good awareness of condition, disease course, and prognosis "RED FLAG" Diabetic symptoms: none Goal HgbA1c <8 Diabetic Complications Vascular (examples: PVD, PAD, CAD, CVA) Medication Regimen Tresiba SGLT (ex: Jardiance) DM Secondary Prevention Aspirin Metformin D/C'd due to diarrhea Latest Reference Range & Units 04/10/14 17:38 06/18/21 09:31 10/03/21 12:07 01/09/22 11:47 Hemoglobin A1C 4.0 - 5.6 % 5.6 6.7 (H) 7.9 (H) 6.7 (H) Continues to follow up with endocrinology Diabetic peripheral neuropathy 11/11/2021 Anxiety state 10/03/2021 History of parathyroidectomy 10/03/2021 Rheumatic valvular disease 06/30/2021 Liver cirrhosis secondary to nonalcoholic steatohepatitis (BROWNE) 04/03/2021 Last Assessment & Plan: Recent liver enzymes normal. Hypertensive heart disease w ith chronic diastolic congestive heart failure 04/03/2021 Last Assessment & Plan: "RED FLAG" HF Symptoms: o Leg Swelling (Examples: "I can't wear certain socks or shoes", "My pants feel tight") o Abdominal Bloating (Examples: "I can't wear certain pants", "My belly feels hard", "I look ") Medication Regimen: o Beta Jacqueline Therapy: Metoprolol Tartrate o PROSPER Inhibitor/ARB Therapy: No PROSPER/ARB/ARNI secondary to: HFpEF o Diuretic therapy: Lasix Self - Management Plan o Double dose of Furosemide for 2 days Exacerbation Plan o BMP o Chest X-Ray Additional Comments: o Has been very stable Major depressive disorder wi th single episode, in full remission 04/03/2021 Gastroesophageal reflux disease without esophagi tis 04/03/2021 Type 2 diabetes mellitus wit h hemoglobin A1c goal of less than 8.0% 03/27/2021 Coronary artery disease of n ative artery of elim ira heart with stable angina pectoris 04/20/2020 Last Assessment & Plan: Continue statin, metoprolol and asa Thyroid nodule 04/20/2020 Prolonged QT interval 12/25/2015 History of partial thyroidectomy 03/28/2015 Irritable bowel syndrome with diarrhea 5 Last Assessment & Plan: Stable as of late. Did have UGI distress but this was attributed to gastro enteritis, possible pancreatitis and or liver issues. Vitamin D deficiency 06/13/2014 Multinodular non-toxic goiter 06/12/2014 Overview: S/p right thyroidectomy and left nodule biopsy Dyslipidemia, goal LDL below 100 04/29/2014 S/P mitral valve replacement 05/20/2011 S/P aortic valve replacement 11/16/2008 Aortocoronary bypass status 11/16/2008 documented as of this encounter (statuses as of 07/08/2023) Resolved Problems Problem Noted Date Diagnosed Date Resolved Date Diabetes mellitus type II, controlled 11/11/2021 11/24/2022 Overview: duplicate Major depressive disorder, s noemi episode, unspecified 04/20/2020 04/03/2021 CAD (coronary artery disease) 07/15/2019 07/15/2019 Kidney disease, chronic, sta ge III (GFR 30-59 ml/min) 07/11/2019 07/17/2019 Overview: Per CKD protocol Hyperparathyroidism, primary 06/10/2018 03/25/2021 Hypercalcemia 05/19/2018 06/10/2018 Abnormal thyroid blood test 05/19/2018 11/17/2018 PAF (paroxysmal atrial fibrillation) 12/25/2015 06/20/2022 Paroxysmal atrial flutter 12/25/2015 Chronic atrial fibrillation 11/27/2015 12/25/2015 Essential hypertension with goal blood pressure less than 140/90 11/27/2015 03/25/2021 Palpitations 05/24/2015 06/21/2015 BROWNE (nonalcoholic steatohepatitis) 01/22/2015 09/18/2022 Overview: More specified Dx listed on PL 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 12/18/2014 05/06/2017 Cirrhosis of liver 12/18/2014 9 Sensory peripheral neuropathy 06/12/2014 05/06/2017 Constipation due to slow transit 04/18/2014 05/06/2017 Balance problem 01/23/2014 05/19/2018 Cerebral microvascular disease 01/23/2014 04/20/2020 Nocturnal leg cramps 12/21/2013 018 HTN, goal below 140/90 11/24/201311/26 Kidney disease, chronic, sta ge III (GFR 30-59 ml/min) 06/15/2013 10/18/2015 LFT elevation 06/15/2013 12/18/2014 Hypothyroidism 05/24/2013 12/18/2014 Sinusitis, acute 04/26/2013 06/15/2013 Cellulitis and abscess 01/11/201306/15 terminal 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 12/07/20122021 Bruit 12/07/2012 12/21/2013 Depression 01/15/2012 12/18/2014 [employer] Other*[id number] 01/08/2012 04/08/2016 Overview: Study Title: Genomic Markers for Patients with Cardiovascular Disease Project # [id number] Box Nailer: Eugenie Peguero MD [phone] Chest pain 12/24/2011 01/07/2013 SOB (shortness of breath) 12/24/2011 Atrial flutter 05/20/2011 11/27/2015 S/P mitral valve repair 11/16/200805/01 ATRIAL FIBRILLATION 11/16/2008 11/27/19 16 Acute upper GI hemorrhage Rheumatic heart disease 08/2017 Esophageal ulcer with bleeding 01/07/2013 documented as of this encounter (statuses as of 07/08/2023) Immunizations Name Administration Dates Next Due COVID-19 mRNA, LNP-s, No Pre serve, 2-Dose Series (Metrekare) 01/14/2021,05/31/2020,05/11/2020 H1N1 2009 Influenza, IM 03/08/2009 Pneumococcal Conjugate Vacci ne, 20-valent ([id number]) 11/11/2021 Pneumococcal Polysaccharide PPV23 (Pneumovax) 05/28/2018,12/31/2008 Season Influenza, Quad, PF, Adjuvanted, 65+ Yrs, IM (FLUAD) 02/03/2021,12/21/2019 Seasonal Influenza Virus Vac cine, Unspecified Formulation 02/10/2022,02/03/2021,12/21/2019,11/26,11/25/2018,11/17/2017,12/18/2014 ,12/15/2012,01/23/2012,01/15/2010 Seasonal Influenza, PF, 6 M & above, IM , (FluLaval or Fluzone) 11/17/2017 Seasonal Influenza, Quadriva lent Hd (Fluzone Hd) 02/10/2022 Seasonal Influenza, Quadriva lent Hd, 65+ Yrs 11/25/2018 Seasonal Influenza, Quadriva lent, No Preserve, IM 11/26/2018,12/18/2014 Seasonal Influenza, Split, I IV3, With Preserve, Inj 12/18/2014,12/15/2012,01/23/2012,01/15 TDAP (age 10 and older)(Boostrix) 08/19/2017 Zoster Vaccine Recombinant (Shingrix) 12/03/2021 ,10/03/2021 documented as of this encounter Social History Tobacco Use Types Packs/Day Years Used Date Smoking Tobacco: Never Passive Smoke Exposure: Past Smokeless Tobacco: Never Alcohol Use Standard Drinks/Week Comments No 0 (1 standard drink = 0.6 oz pur e alcohol) maybe once per year PHQ-2 Answer Date Recorded PHQ Adult Total Score 0 03/31/2023 Hunger Vital Sign Answer Date Recorded Within the past 12 months, y ou worried that your food would run out before you got the money to buy more. Never true 03/31/19 24 Within the past 12 months, t he food you bought just didn't last and you didn't have money to get more. Never true 03/31/2023 Sex and Gender Information Value Date Recorded Sex Assigned at Female 10/03/2021 11:02 AM EDT Gender Identity Female 10/03/2021 11:02 AM EDT Sexual Orientation Straight 03/15/2021 2: 37 PM EST Job Start Date Occupation Industry Not on file Not on file Not on file documented as of this encounter Plan of Treatment Upcoming Encounters Date Type Department Care Team (Late st Contact Info) Description 07/31/2023 10:30 AM EDT Anticoagulation Pharmacy, [address] [address] [facility] [place] [address] 08/07/2023 10:30 AM EDT Cardiac Studies Cardiology, [facility] [address] [facility] [place] [id number] [place], [facility] [address] [facility] [place] [id number] 02/02/2024 8:00 AM EST Office Visit Urology, [facility] [address] [facility] [place] [id number] Sudarshan Rodriguez MD [address] [facility] [address] [place] [id number] Scheduled Procedures Name Priority Associated Diagnoses Date/Ti me COLONOSCOPY FLEXIBLE PROXIMA L DIAGNOSTIC Recall Screening for colon cancer Health Maintenance Due Date Last Done Comments Hepatitis B (1 of 3 - Risk 3-dose series) 2005 *BISPHONATE OR OTHER ACCEPTABLE MEDICATION NEEDED FOR OSTEOPOROSIS (REFER TO SMARTSET #1146) 06/26/2022 COVID-19 Vaccine ( season) 2022 01/14/2021, 05/31/2020, 05/11/2020 DIG LEVEL FOR MEDICATION MONITORING YEARLY 08/21/2023 08/20/2022, 06/18/2021, 05/01/2020 HbA1c 10/16/2023 04/17/2023, 11/01, 07/14/2022, Additional history exists Diabetic Eye Exam 10/22/2023 10/21/2022, 10/03/2021 Influenza Vaccine (FLU shot) (Season Ended) 2023 02/10/2022, 02/10/2022, 02/03/2021, Additional history exists DXA Scan 03/31/2024 03/31/2022, 03/31/2022 Albumin/Creatinine Ratio 04/17/2024 024, 07/14/2022, 06/18/2021, Additional history exists GFR 04/17/2024 04/17/2023, 11/01, 08/20/2022, Additional history exists Diabetic Foot Exam 04/30/2024 05/01/2023, 0 03/28/2022, 06/18/2021 DTaP,Tdap,and Td Vaccines (2 - Td or Tdap) 08/20/2027 08/19/2017 Pneumococcal Vaccine: 65+ Years Completed 11/11/2021, 05/28/2018, 12/31/2008 Zoster Vaccines Completed 12/03/2021, 10/03/2021 VITAMIN D LEVEL ONCE IN A LIFETIME-USE SMARTSET# [id number] Completed 04/03/2022, 06/01/2018, 05/06/2017, Additional history exists GARDASIL-HPV IMMUNIZATION SERIES Aged Out No longer eligible based on patient's age to complete this topic MENINGOCOCCAL (MENACTRA/MENVEO) Aged Out No longer eligible based on patient's age to complete this topic documented as of this encounter Medical Devices Not on filedocumented as of this encounter Procedures Procedure Name Priority Date/Time Associated Diagnosis Comments CARDIOLOGY SCANNED RESULT 07/08/2023 documented in this encounter Results * CARDIOLOGY SCANNED RESULT (07/08/2023) 07/08/2023 Dillon Almeida DO OTHER documented in this encounter Advance Directives Healthcare Agents on File Name Relationship Healthcare Agent Relationship Communication Tayo Roman Other - (no specific identity) Health Care Agent Care Teams Cake Winder Relationship Specialty Start Date End Date Desi Garcia MD [address] [place], [place] [id number] PCP - General Internal Medicine 11/26/22 documented as of this encounter
[2023-07-14] MEDS: METOPROLOL TARTRATE 50 MG TAB PO SCH (07:35)
[2023-07-14] MEDS: CHOLECALCIFEROL 25 MCG (1000 UNITS) TAB PO SCH (07:35)
[2023-07-14] MEDS: ROSUVASTATIN CALCIUM 5 MG TAB PO SCH (07:36)
[2023-07-14] MEDS: FUROSEMIDE 40 MG TAB PO SCH (07:37)
[2023-07-14] MEDS: SERTRALINE HCL 50 MG TABLET PO SCH (07:37)
[2023-07-14] MEDS: OXYBUTYNIN CHLORIDE XL 5 MG TABCR PO SCH (07:38)
[2023-07-14] MEDS: POTASSIUM CHLORIDE CRTAB 20 MEQ TABCR PO STA (08:32)
[2023-07-14] MEDS: POTASSIUM CHLORIDE / WTR 10 MEQ/100 ML PLCT IV SCH (08:35)
[2023-07-14] MEDS ORDERED: ASPIRIN 81 MG ECTAB PO SCH (09:00)
[2023-07-14] MEDS: LANTUS PER UNIT CHARGE SQ SCH (09:01)
[2023-07-14] MEDS: INSULIN ASPART PER UNIT CHARGE SC SCH (09:01)
--- NOTE | 2023-07-14 10:37 | Orthopedic Consultation ---
Date of Consultation July 14, 2023 Assessment & Plan (1) Traumatic hematoma of left thigh: 77 year old female with a left hip/thigh hematoma secondary to mechanical fall and on anticoagulants. at this point would continue with conservative measures, no surgery indicated at this time. She can weight bear as tolerated on her left leg. would be cautious with her anticoagulants however given her past medical history, would defer this to the primary team. xrays reviewed as well did not show any fracture of the left hip. CT showing soft tissue contusion/edema with a subcutaneous hematoma seen in the left upper thigh overlying the greater trochanter of the left femur. cont with observation, she can follow up as an outpatient in a couple of weeks to make sure this is resolving. (2) Anticoagulated: History of Present Illness Reason for Consultation: left thigh hematoma Attending Physician: Patti Marks MD History of Present Illness Ms Diana is a 77 year old female that presented to the ER after sustaining a fall getting out of a chair, states her clothes got caught and caused her to fall. she denies hitting her head or loss of consciousness. 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 she denies any previous surgeries,trauma or injuries to the hip. pain well located to the lateral hip /thigh area. she denies numbness/tingling in her leg. Allergies Allergy/AdvReac Type Severity Reaction Status Date / Time lidocaine Allergy Intermediate Rash/hives Verified 03/30/23 10:11 [From Aspercreme (lidocaine)] with cream Sulfa (Sulfonamide Allergy Intermediate Rash, hives Verified 03/30/23 10:11 Antibiotics) latex Allergy Unknown Wheezing Verified 03/30/23 10:11 levothyroxine AdvReac Intermediate Tachycardia Verified 03/30/23 10:11 Home Medications Medication Instructions Recorded Confirmed Type furosemide 20 mg tablet 20 mg PO UD 05/27/18 07/13/23 History nitroglycerin 0.4 mg sublingual 0.4 mg sublingual DIRECTED PRN 05/27/18 0 07/13/23 History tablet (Nitrostat) Chest Pain sertraline 50 mg tablet 50 mg PO QAM 04/05/20 07/13/23 History digoxin 125 mcg (0.125 mg) tablet 125 mcg PO QAM 08/14/20 07/13/23 History cholecalciferol (vitamin D3) 25 50 mcg PO QAM 03/08/21 07/13/23 History mcg (1,000 unit) tablet (Vitamin D3) amoxicillin 500 mg capsule 2,000 mg PO ONCE PRN Prophylaxis 06/09/22 07/13/23 History aspirin 81 mg tablet,delayed 81 mg PO DAILY 06/09/22 07/13/23 History release fluticasone propionate 50 1 spray intranasal HS PRN otjer 06/09/22 07/13/23 History mcg/actuation nasal spray,suspension rosuvastatin 5 mg tablet 5 mg PO DAILY 06/09/22 07/13/23 History warfarin 1 mg tablet 2 - 3 mg PO DAILY 06/09/22 07/13/23 History blood-glucose meter (OneTouch 08/13/22 03/30/23 History Verio Flex Meter) empagliflozin 25 mg tablet 25 mg PO QAM 08/13/22 07/13/23 History (Jardiance) pen needle, diabetic 32 gauge x #100 ea 08/14/22 03/30/23 Rx 1/4" (Comfort EZ Pen [place]) insulin degludec 100 unit/mL (3 26 unit subcut DAILY 11/17/22 07/13/23 History mL) subcutaneous pen (Tresiba FlexTouch U-100 insulin) solifenacin 5 mg tablet (Vesicare) 5 mg PO DAILY #30 tabs 07/03/23 07/13/23 Rx dicyclomine 10 mg capsule 20 mg PO QID PRN Abdominal Pain 07/13/23 07/14/23 History metoprolol succinate 50 mg 50 mg PO BID 07/14/23 07/14/23 History tablet,extended release 24 hr potassium chloride 10 mEq 10 meq PO DAILY 07/14/23 07/14/23 History tablet,extended release Patient History Medical History History of transesophageal echocardiography (ASHLEY) Osteoarthritis Anxiety Depression On anticoagulant therapy History of cardioversion multiple Atrial flutter HTN (hypertension) Surgical History History of cardiac cath 2002 & ~2013 [facility] History of bilateral tubal ligation History of cataract surgery bilateral History of tonsillectomy History of colonoscopy Hx of appendectomy History of cholecystectomy Hx of CABG x3 vessels (2002) at [facility] Family History Mother Colorectal cancer Father FHx: bladder cancer Other No family history of adverse response to anesthesia Social History Smoking Status: Never smoker Second Hand Exposure: No; Do You Dip or Chew Tobacco: No; Hx Alcohol Use: No Hx Substance Use: No Preferred Language: Amharic Communication Ability: Effective Ekg Tech Required: No Beliefs That Will Affect Care: None Current Living Situation: Alone Current Living Situation Comment: [facility] (Independent living) Other Information That Helps Us Care for You: No Feels Safe at Home: Yes Safety Concerns: Feels Safe At This Time Assistive Devices: Denture - Upper, Glasses, Hearing Aid - Bilateral and Walker Review of Systems Constitutional: no fever and no chills Respiratory: no cough and no dyspnea Cardiovascular: no chest pain, no dyspnea and no orthopnea Gastrointestinal: no abdominal pain, no nausea and no vomiting Physical Exam Physical Exam: Vital Signs Temp 36.6 C 07/14/23 07:34 Pulse 68 07/14/23 07:34 Resp 18 07/14/23 07:34 BP 111/57 L 07/14/23 07:34 Pulse Ox 98 07/14/23 07:34 O2 Del Method Room Air 07/14/23 07:34 Intake & Output 07/13/23 07/14/23 07/14/23 18:59 06:59 18:59 Intake Total 555 / 555 100 / 100 Balance 555 / 555 100 / 100 Weight 57.9 kg Intake: IV 355 / 355 100 / 100 Acetaminophen 1,000 mg In 100 200 / 200 ml @ 400 mls/h r IV Q8H ARACELI Rx#: [id number] Heparin Sodium /Dextrose 25,000 155 / 155 units In 500 m l @ 1,000 UNITS/ HR 20 mls/hr I V .Q24H ARACELI Rx#: [id number] Potassium Chlo ride / Wtr 10 meq 100 / 100 In 100 ml @ 10 0 mls/hr IV Q1H ARACELI Rx#:[id number] Oral 200 / 200 Other: Other Intake Flaca rce sips Weight Measureme nt Method Built in [facility] Musculoskeletal: Hip: + hip abnormal to inpsection (LEFT HIP) and + ecchymosis (+ contusion well located to lateral hip/thigh; tender to touch); no deformity, no effusion, normal ROM of hip and log roll test negative inspection + for thigh hematoma lateral hip. anterior thigh soft, nontender. calf soft, non tender. sensation intact distally; DP palpable. Results & Data Vital Signs (Past 12 Hours) Vital Signs Temp Pulse Pulse Resp BP Pulse Ox O2 Del Method 07/14/23 07:34 36.6 C 68 18 111/57 L 98 Room Air 07/14/23 07:17 69 07/14/23 04:12 36.7 C 82 20 107/55 L 96 Room Air 07/14/23 00:00 66 07/13/23 23:54 36.8 C 70 20 118/69 97 Room Air 07/13/23 23:00 37.1 C 79 18 122/53 L 97 Room Air Laboratory Results Laboratory Results WBC 10.19 K/ul (4.8-10.8) 07/14/23 02:07 RBC 4.32 M/uL (4.20-5.40) 07/14/23 02:07 Hgb 12.4 g/dl (12.0-16.0) 07/14/23 02:07 Hct 36.0 % (37.0-47.0) L 07/14/23 02:07 MCV 83.3 fL (80.0-100.0) 07/14/23 02:07 MCH 28.7 pg (25.0-34.0) 07/14/23 02:07 MCHC 34.4 g/dL (32.0-36.0) 07/14/23 02:07 RDW Std Deviation 46.0 fL (36.4-46.3) 07/14/23 02:07 RDW Coeff of Tammi 15.3 % (11.5-14.5) H 07/14/23 02:07 Plt Count 194 K/uL (130-400) 07/14/23 02:07 MPV 11.0 fL (9.4-12.4) 07/14/23 02:07 Immature Gran % (Auto) 0.5 % 07/13/23 15:50 Neut % (Auto) 68.8 % 07/13/23 15:50 Lymph % (Auto) 21.9 % 07/13/23 15:50 [place] % (Auto) 8.3 % 07/13/23 15:50 Eos % (Auto) 0.2 % 07/13/23 15:50 Baso % (Auto) 0.3 % 07/13/23 15:50 Neut # (Auto) 6.71 K/uL (1.40-6.50) H 07/13/23 15:50 Lymph # (Auto) 2.14 K/uL (1.20-3.40) 07/13/23 15:50 [place] # (Auto) 0.81 K/uL (0.11-0.59) H 07/13/23 15:50 Eos # (Auto) 0.02 K/uL (0.00-0.50) 07/13/23 15:50 Baso # (Auto) 0.03 K/uL (0.00-0.20) 07/13/23 15:50 Immature Gran # (Auto) 0.05 K/uL (0.01-0.20) 07/13/23 15:50 PT 14.7 Seconds (9.0-12.0) H 07/14/23 02:07 INR 1.4 (0.9-1.1) H 07/14/23 02:07 APTT 35 Seconds (21-31) H 07/13/23 15:50 PTT Ratio 1.3 07/13/23 15:50 Heparin Anti-Xa, Unfract 0.34 IU/ml (0.3-0.7) 07/14/23 02:07 Sodium 136 mmol/L (136-145) 07/14/23 02:07 Potassium 3.4 mmol/L (3.5-5.1) L 07/14/23 02:07 Chloride 104 mmol/L (98-107) 07/14/23 02:07 Carbon Dioxide 22 mmol/L (21-32) 07/14/23 02:07 Anion Gap 10 (3-11) 07/14/23 02:07 BUN 15 mg/dl (6-23) 07/14/23 02:07 Creatinine 0.71 mg/dl (0.6-1.2) 07/14/23 02:07 Est Cr Clr Drug Dosing 52.5 ml/min 07/14/23 02:07 Est GFR ( Amer) 95.2 ml/min 07/14/23 02:07 Est GFR (Non-Af Amer) 82.2 ml/min 07/14/23 02:07 BUN/Creatinine Ratio 21.1 (10-20) H 07/14/23 02:07 Glucose 169 mg/dl (70-99(Fasting)) H 07/14/23 02:07 POC Glucose 189 mg/dl (70-99) H 07/14/23 08:15 Estimat Average Glucose 197 mg/dl 07/14/23 02:07 Hemoglobin A1c 8.5 % (4.5-5.6) H 07/14/23 02:07 Calcium 9.5 mg/dl (8.6-10.3) 07/14/23 02:07 Phosphorus 3.4 mg/dl (2.5-4.9) 07/14/23 02:07 Magnesium 2.0 mg/dl (1.7-2.4) 07/14/23 02:07 Total Bilirubin 0.9 mg/dl (0.2-1.0) 07/13/23 15:50 AST 21 U/L (13-39) 07/13/23 15:50 ALT 12 U/L (7-52) 07/13/23 15:50 Alkaline Phosphatase 63 U/L (34-104) 07/13/23 15:50 Total Protein 7.9 gm/dl (6.0-8.3) 07/13/23 15:50 Albumin 4.2 gm/dl (3.4-5.0) 07/13/23 15:50 Globulin 3.7 gm/dl (2.5-4.0) 07/13/23 15:50 Albumin/Globulin Ratio 1.1 (0.9-2) 07/13/23 15:50 Impressions Abdomen/Pelvis CT 07/13/23 15:09 CT SCAN OF THE CHEST, ABDOMEN, AND PELVIS WITH IV CONTRAST CLINICAL HISTORY: Trauma. Fall. COMPARISON STUDY: Chest x-ray dated 06/09/2022. Chest CT dated 10/09/2012. Abdominal CT dated 06/09/2022. TECHNIQUE: Following the IV administration of 93 of Optiray 320, CT scan of the chest, abdomen, and pelvis was performed from the thoracic inlet to the proximal femora. Images are reviewed in the axial, sagittal, and coronal planes. IV contrast was administered without complication. A dose lowering technique was utilized adhering to the principles of ALARA. FINDINGS: CHEST: Thyroid: The right lobe is atrophic versus surgically absent. The left lobe is mildly enlarged and heterogeneous. Thoracic aorta: Postsurgical changes noted involving the aortic root. There is atherosclerotic calcification of the thoracic aorta. The thoracic aorta is normal in caliber and demonstrates standard 3-vessel arch anatomy. No dissection is seen. Pulmonary vasculature: The pulmonary trunk is normal in caliber. There are no filling defects identified in the central pulmonary vessels to indicate pulmonary embolus. Note that this examination was not protocoled for evaluation of the pulmonary arteries. Heart: A pacemaker is present in the left chest wall. The patient is status post midline sternotomy and cardiac valve surgery. The heart is normal in size and without pericardial effusion. The coronary arteries are densely calcified. Lungs and pleural spaces: Evaluation of the lung parenchyma is moderately degraded by motion artifact. There is no airspace consolidation, pleural effusion, or pneumothorax. Scarring/atelectasis is noted at both lung bases. The trachea and central airways are clear. There are scattered calcified granulomas. Mediastinum: There is no mediastinal hematoma or lymphadenopathy. April: Clear. Axillae: There is no axillary lymphadenopathy. Bony thorax: The skeletal structures are osteopenic. The bony thorax appears intact. There is a mild chronic superior compression deformity of T8. No lytic or blastic lesions are identified. ABDOMEN AND PELVIS: Liver: The contrast-enhanced liver is cirrhotic in morphology and heterogeneous in attenuation. There is hypertrophy of the left lobe and nodularity of the hepatic surface contour. There is no intrahepatic biliary ductal dilatation. The hepatic veins and portal veins are patent. Gallbladder: Surgically absent noting clips in the gallbladder fossa. Spleen: Normal in size and attenuation. Pancreas: Unremarkable. Adrenal glands: Unremarkable. Kidneys: The contrast enhanced kidneys are normal in size and without hydronephrosis. The kidneys enhance symmetrically. Abdominal vasculature: The abdominal aorta is normal in course and caliber noting moderate atherosclerotic calcification. Bowel: There is mild colonic diverticulosis without CT evidence of acute diverticulitis. No bowel obstruction is seen. The appendix is not visualized. Peritoneum: There is no intraperitoneal free air or abdominal ascites. Lymphadenopathy: None. Pelvic viscera: The bladder is distended but otherwise normal in appearance. The uterus is surgically absent. No adnexal lesion is seen. Surgical clips are noted in the right groin. Skeletal structures: The skeletal structures are osteopenic. The lumbosacral spine, bony pelvis, and proximal femora appear intact. There is lumbosacral spondylosis. No lytic or blastic lesions are seen. Soft tissues: There is soft tissue contusion/edema with a subcutaneous hematoma seen in the left upper thigh overlying the greater trochanter of the left femur. This is best seen on axial image #330 and measures 6.8 x 6.1 x 3.2 cm. Small foci of active extravasation are seen inferiorly on images #343 # and 359. IMPRESSION: 1. There is no acute posttraumatic intrathoracic abnormality. 2. There is no airspace consolidation, pleural effusion, or pneumothorax. 3. There is no evidence of solid organ injury in the abdomen or pelvis. 4. A subcutaneous soft tissue contusion with hematoma is seen in the left upper thigh with foci of active extravasation. 5. Cardiomegaly. 6. Cirrhotic liver morphology. 7. Additional findings as above. ACT 112: Negative or not required by law. Electronically signed by: Madhu Norwood M.D. 07/13/2023 5:[address] 07/13/23 15:09 CT cervical spine wo con CLINICAL HISTORY: 77 years-old Female with Fall, anticoagulated, trauma. Acute neck pain status post fall COMPARISON: Head CT of same day, CTA neck 08/13/2079 TECHNIQUE: Multiple axial CT images of the cervical spine were obtained without contrast. A dose lowering technique was utilized adhering to the principles of ALARA. FINDINGS: Multilevel facet arthrosis is prominently moderate. Multilevel intervertebral disc space narrowing, moderate to severe C4-C5. Posterior disc osteophyte complex formations most pronounced at C4-C5 and C6-C7. No acute fracture or subluxation identified. The cervical soft tissues appear unremarkable. Subcentimeter hypodense left- sided thyroid nodules. Atherosclerosis of the carotid bulbs. The visualized lung apices appear clear. IMPRESSION: No acute cervical spine fracture or subluxation. ACT 112: Negative or not required by law. The above report was generated using voice recognition software. It may contain grammatical, syntax or spelling errors. Electronically signed by: Rojelio Griggs M.D. 07/13/2023 5:[address] 07/13/23 15:09 CT SCAN OF THE CHEST, ABDOMEN, AND PELVIS WITH IV CONTRAST CLINICAL HISTORY: Trauma. Fall. COMPARISON STUDY: Chest x-ray dated 06/09/2022. Chest CT dated 10/09/2012. Abdominal CT dated 06/09/2022. TECHNIQUE: Following the IV administration of 93 of Optiray 320, CT scan of the chest, abdomen, and pelvis was performed from the thoracic inlet to the proximal femora. Images are reviewed in the axial, sagittal, and coronal planes. IV contrast was administered without complication. A dose lowering technique was utilized adhering to the principles of ALARA. FINDINGS: CHEST: Thyroid: The right lobe is atrophic versus surgically absent. The left lobe is mildly enlarged and heterogeneous. Thoracic aorta: Postsurgical changes noted involving the aortic root. There is atherosclerotic calcification of the thoracic aorta. The thoracic aorta is normal in caliber and demonstrates standard 3-vessel arch anatomy. No dissection is seen. Pulmonary vasculature: The pulmonary trunk is normal in caliber. There are no filling defects identified in the central pulmonary vessels to indicate pulmonary embolus. Note that this examination was not protocoled for evaluation of the pulmonary arteries. Heart: A pacemaker is present in the left chest wall. The patient is status post midline sternotomy and cardiac valve surgery. The heart is normal in size and without pericardial effusion. The coronary arteries are densely calcified. Lungs and pleural spaces: Evaluation of the lung parenchyma is moderately degraded by motion artifact. There is no airspace consolidation, pleural effusion, or pneumothorax. Scarring/atelectasis is noted at both lung bases. The trachea and central airways are clear. There are scattered calcified granulomas. Mediastinum: There is no mediastinal hematoma or lymphadenopathy. April: Clear. Axillae: There is no axillary lymphadenopathy. Bony thorax: The skeletal structures are osteopenic. The bony thorax appears intact. There is a mild chronic superior compression deformity of T8. No lytic or blastic lesions are identified. ABDOMEN AND PELVIS: Liver: The contrast-enhanced liver is cirrhotic in morphology and heterogeneous in attenuation. There is hypertrophy of the left lobe and nodularity of the hepatic surface contour. There is no intrahepatic biliary ductal dilatation. The hepatic veins and portal veins are patent. Gallbladder: Surgically absent noting clips in the gallbladder fossa. Spleen: Normal in size and attenuation. Pancreas: Unremarkable. Adrenal glands: Unremarkable. Kidneys: The contrast enhanced kidneys are normal in size and without hydronephrosis. The kidneys enhance symmetrically. Abdominal vasculature: The abdominal aorta is normal in course and caliber noting moderate atherosclerotic calcification. Bowel: There is mild colonic diverticulosis without CT evidence of acute diverticulitis. No bowel obstruction is seen. The appendix is not visualized. Peritoneum: There is no intraperitoneal free air or abdominal ascites. Lymphadenopathy: None. Pelvic viscera: The bladder is distended but otherwise normal in appearance. The uterus is surgically absent. No adnexal lesion is seen. Surgical clips are noted in the right groin. Skeletal structures: The skeletal structures are osteopenic. The lumbosacral spine, bony pelvis, and proximal femora appear intact. There is lumbosacral spondylosis. No lytic or blastic lesions are seen. Soft tissues: There is soft tissue contusion/edema with a subcutaneous hematoma seen in the left upper thigh overlying the greater trochanter of the left femur. This is best seen on axial image #330 and measures 6.8 x 6.1 x 3.2 cm. Small foci of active extravasation are seen inferiorly on images #343 # and 359. IMPRESSION: 1. There is no acute posttraumatic intrathoracic abnormality. 2. There is no airspace consolidation, pleural effusion, or pneumothorax. 3. There is no evidence of solid organ injury in the abdomen or pelvis. 4. A subcutaneous soft tissue contusion with hematoma is seen in the left upper thigh with foci of active extravasation. 5. Cardiomegaly. 6. Cirrhotic liver morphology. 7. Additional findings as above. ACT 112: Negative or not required by law. Electronically signed by: Madhu Norwood M.D. 07/13/2023 5:01 PM Hand X-Ray 07/13/23 15:09 LEFT HAND 3 VIEWS CLINICAL HISTORY: Fall. Left hand injury. FINDINGS: 3 views of the left hand are obtained. No prior studies are available for comparison at the time of dictation. The skeletal structures are osteopenic. No fracture is seen. Minimal osteoarthritic change is noted throughout the wrist and hand. No erosive disease is seen. The overlying soft tissues are within normal limits. IMPRESSION: No acute bony abnormality is identified. Electronically signed by: Madhu Norwood M.D. 07/13/2023 3:[address] 07/13/23 15:09 CT SCAN OF THE BRAIN WITHOUT IV CONTRAST CLINICAL HISTORY: Trauma. Fall. COMPARISON STUDY: CT of the brain dated 06/09/2022. TECHNIQUE: Unenhanced axial CT scan of the brain is performed from the vertex to the skull base. A dose lowering technique was utilized adhering to the princip les of NATALIIA. CT DOSE: 2072.88 mGy.cm FINDINGS: Brain parenchyma: There is age-related involutional change noting moderate subcortical and periventricular microangiopathic disease. There is no hemorrhage, mass effect, or evidence of acute territorial ischemia by CT criteria. Mineralization is noted in the basal ganglia. Mercado-white matter differentiation is preserved. No extra-axial fluid collection is seen. Ventricles, sulci, cisterns: Prominent secondary to involutional change. Intracranial vasculature: There is atherosclerotic calcification of the cavernous carotid arteries. Calvarium: The skeletal structures are osteopenic. There is no depressed calvarial fracture. Sinuses and mastoids: The visualized paranasal sinuses are clear. The mastoid air cells are well pneumatized. Orbits: The bony orbits are grossly intact. IMPRESSION: There is no hemorrhage, mass effect, or evidence of acute territorial ischemia by CT criteria. ACT 112: Negative or not required by law. Electronically signed by: Madhu Norwood M.D. 07/13/2023 4:48 PM Femur X-Ray 07/13/23 15:10 LEFT FEMUR 3 VIEWS CLINICAL HISTORY: Fall. Left leg injury. FINDINGS: AP, frog-leg, and lateral views of the left femur are obtained. No prior studies are available for comparison at the time of dictation. The skeletal structures are osteopenic. There is no radiographic evidence of acute fracture involving the left femur or the visualized left hemipelvis. The joint space of the left hip is maintained. The left knee joint is grossly preserved. There is degenerative sclerosis of the left sacroiliac joint. Soft tissue edema overlies left proximal femur. Surgical clips are present in the upper thigh bilaterally. There is atherosclerotic calcification of the left femoral artery. IMPRESSION: 1. There is no radiographic evidence of left femoral fracture. 2. Soft tissue edema is noted in the left upper thigh. Electronically signed by: Madhu Norwood M.D. 07/13/2023 3:56 PM
--- NOTE | 2023-07-14 12:03 | Cardiology Consultation ---
Date of Consultation July 14, 2023 Assessment & Plan (1) Traumatic hematoma of left thigh: (2) Anticoagulation goal of INR 2.5 to 3.5: * Patient with history of persistent atrial fibrillation, mechanical mitral valve prosthesis, mechanical aortic valve prosthesis, therefore INR goal is 2.5-3.5. * Agree with holding coumadin today * Continue heparin bridge. Follow Hgb. * This is not her first mechanical fall. May benefit from PT evaluation for gait training. History of Present Illness Attending Physician: Patti Marks MD History of Present Illness Sharee Diana is a 77 year old female seen in cardiology consultation per the request of GEOFFREY Duarte for advice with regards to anticoagulation given fall and left thigh/buttock hematoma. Patient describes having had a mechanical trip and fall with her feet entangled in a blanket yesterday with resultant hematoma of her left upper thigh and buttock area. No fractures. Hemoglobin stable. INR on presentation yesterday was 1.6. She was started on a heparin infusion with therapeutic Anti- Xa level less than 0.34 this morning. INR 1.4 today. Hemoglobin stable at 12.4. Telemetry reveals rate controlled atrial fibrillation in the 60s with demand right ventricular pacing. [facility] [place] [address] Cardiology Consultation Signed Patient: SHAREE DIANA Admit Date: 04/05/20 MR#: [id number] Att Phy: Prerna Young MD Acct ID:[id number] Karina Phy: Melba Bullock DO Date: 1945 Fam Phy: Age: 74 Location: 2S Sex: F Room/Bed: [facility] cc: ~ *NOTICE TO RECEIVING LIBERTARIAN/AGENCY This information is strictly Confidential and protected under [place] law. [place] law prohibits you from making any further disclosure of this information unless further disclosure is expressly permitted by the written consent of the person to whom it pertains or is authorized by law. A general authorization for the release of medical or other information is not sufficient for this purpose. Hospital accepts no responsibility if the information is made available to any other person, INCLUDING THE PATIENT. Date of Consultation April 06, 2020 Assessment & Plan (1) Tachycardia-bradycardia syndrome: (2) Atrial flutter: (3) Near syncope: (4) Subtherapeutic anticoagulation: (5) S/P AVR (aortic valve replacement): (6) S/P MVR (mitral valve replacement): Telemetry revealing significant for5-second pauses associated with symptoms. Recommend permanent pacemaker implantation. Single-chamber device recommended due to persistent likely chronic atrial flutter. Patient's INR is 1.8 this morning. (Goal INR 2.53.5 due to mechanical mitral and aortic valve prosthesis). Recommend discontinue IV heparin in anticipation of pacemaker implantation. Hold AV damon blocking agents. N.p.o. except medications. Defibrillator pads in place. Continue to monitor. Case discussed with electrophysiology. Plan to implant single-chamber pacemaker at approximately 130 this afternoon. Patient remains hemodynamically stable. No indication for temporary transvenous pacer currently. All questions answered to patient satisfaction. Thank you for allowing me to participate in the care of your patient. History of Present Illness Reason for Consultation: dizziness Requesting Physician: Dr. Luna Attending Physician: Prerna Young MD History of Present Illness 74-year-old female presented to the emergency department with dizziness. Complex cardiovascular history listed below. Most recently evaluated in the cardiology clinic 03/29/2020. During that visit, metoprolol titrated to 37.5 mg twice daily. Reports near syncopal episodes yesterday as well as this a.m. Telemetry reveals multiple 4-5-second pauses. Reports isolated syncopal episode approximately 1 year ago. Denies recurrent overt syncope. No orthopnea, PND, or lower extremity edema. Denies signs/symptoms of GI/ blood loss. INR is subtherapeutic today. Intravenous heparin infusing. Offers no other concerns/complaints at this time Cardiac/medical history: 1. Rheumatic heart disease. 2. Status post March 04, 2002 aortic valve replacement with a 21 mm [employer] top hat aortic prosthesis, mitral valve replacement with a [employer] 31-mm mitral prosthesis, CABG x 3 with a KIRK to the LAD, right internal mammary artery anastomosed as a free graft to the RCA, and a single saphenous vein graft to the diagonal coronary artery, and radiofrequency ablation of atrial fibrillation pathways at [facility]. 3. Presentation in November 2011 with exertional chest tightness and shortness of breath, echocardiography at that time revealing increased velocities across the prosthetic aortic valve suggestive of Prosthetic dysfunction 4. Cardiac catheterization was performed at [facility] on 01/08/12. She remained on Coumadin for the procedure, and it was performed via the left radial artery approach. The coronary arteries were noted to have significant 1 vessel disease (70% mid LAD). Two of the 3 bypasses were patent. There was noted obstruction of the SVG to diagonal, however, this [place] diagonal had no significant obstructive disease in the [place] vessel. 5. Hospitalization in September 2012 with hematemesis. EGD on 10/11/2012 revealed an esophageal ulcer which was treated with Epinephrine injection. The patient remained anticoagulated throughout that hospital stay, discharged on a treatment regimen of Protonix and Carafate. Repeat EGD on 12/09/[address] Colin at [place] showed that the ulcer was healed. 6. Status post December 24, 2012 redo mechanical AVR by Dr. Manley 7. Multiple admissions/hospitalizations with symptomatic atrial fibrillation and atrial flutter. Prior use of sotalol resulted in nausea and significant bradycardia. Failed Tikosyn. Amiodarone discontinued in August. Persistent atrial fibrillation.Ultimately underwent implantation of a single-chamber Medtronic permanent pacemaker 04/06/2020 8. Diastolic congestive heart failure 9. Hypertension 10. Dyslipidemia Allergies Allergy/AdvReac Type Severity Reaction Status Date / Time lidocaine Allergy Intermediate Rash/hives Verified 03/30/23 10:11 [From Aspercreme (lidocaine)] with cream Sulfa (Sulfonamide Allergy Intermediate Rash, hives Verified 03/30/23 10:11 Antibiotics) latex Allergy Unknown Wheezing Verified 03/30/23 10:11 levothyroxine AdvReac Intermediate Tachycardia Verified 03/30/23 10:11 Home Medications Medication Instructions Recorded Confirmed Type furosemide 20 mg tablet 20 mg PO UD 05/27/18 07/13/23 History nitroglycerin 0.4 mg sublingual 0.4 mg sublingual DIRECTED PRN 05/27/18 07/13/23 History tablet (Nitrostat) Chest Pain sertraline 50 mg tablet 50 mg PO QAM 04/05/20 07/13/23 History digoxin 125 mcg (0.125 mg) tablet 125 mcg PO QAM 08/14/20 07/13/23 History cholecalciferol (vitamin D3) 25 50 mcg PO QAM 03/08/21 07/13/23 History mcg (1,000 unit) tablet (Vitamin D3) amoxicillin 500 mg capsule 2,000 mg PO ONCE PRN Prophylaxis 06/09/22 07/13/23 History aspirin 81 mg tablet,delayed 81 mg PO DAILY 06/09/22 07/13/23 History release fluticasone propionate 50 1 spray intranasal HS PRN otjer 06/09/22 07/13/23 History mcg/actuation nasal spray,suspension rosuvastatin 5 mg tablet 5 mg PO DAILY 06/09/22 07/13/23 History warfarin 1 mg tablet 2 - 3 mg PO DAILY 06/09/22 07/13/23 History blood-glucose meter (OneTouch 08/13/22 03/30/23 History Verio Flex Meter) empagliflozin 25 mg tablet 25 mg PO QAM 08/13/22 07/13/23 History (Jardiance) pen needle, diabetic 32 gauge x #100 ea 08/14/22 03/30/23 Rx 1/4" (Comfort EZ Pen [place]) insulin degludec 100 unit/mL (3 26 unit subcut DAILY 11/17/22 07/13/23 History mL) subcutaneous pen (Tresiba FlexTouch U-100 insulin) dicyclomine 10 mg capsule 20 mg PO QID PRN Abdominal Pain 07/13/23 07/14/23 History metoprolol succinate 50 mg 50 mg PO BID 07/14/23 07/14/23 History tablet,extended release 24 hr potassium chloride 10 mEq 10 meq PO DAILY 07/14/23 07/14/23 History tablet,extended release Patient History Medical History History of transesophageal echocardiography (ASHLEY) Osteoarthritis Anxiety Depression On anticoagulant therapy History of cardioversion multiple Atrial flutter HTN (hypertension) Surgical History History of cardiac cath 2002 & ~2013 [facility] History of bilateral tubal ligation History of cataract surgery bilateral History of tonsillectomy History of colonoscopy Hx of appendectomy History of cholecystectomy Hx of CABG x3 vessels (2002) at [facility] Family History Mother Colorectal cancer Father FHx: bladder cancer Other No family history of adverse response to anesthesia Social History Smoking Status: Never smoker Second Hand Exposure: No; Do You Dip or Chew Tobacco: No; Hx Alcohol Use: No Hx Substance Use: No Preferred Language: Kiswahili Communication Ability: Effective Dust Puller Required: No Beliefs That Will Affect Care: None Current Living Situation: Alone Current Living Situation Comment: [facility] (Independent living) Other Information That Helps Us Care for You: No Feels Safe at Home: Yes Safety Concerns: Feels Safe At This Time Assistive Devices: Denture - Upper, Glasses, Hearing Aid - Bilateral and Walker Physical Exam Constitutional: WD/WN, vitals as above Respiratory: normal respiratory effort, lungs clear to auscultation Cardiovascular: Rate/Rhythm: + irregularly irregular crisp prosthetic heart sounds, no murmur, no edema Gastrointestinal (Abdomen): normal bowel sounds, soft, nontender, no hepatosplenomegaly Musculoskeletal: hematoma of left upper thigh / buttock Neurologic: PERRL, EOMI, accommodation nl, no face palsy, no dysarthria Results & Data Vital Signs (Past 12 Hours) Vital Signs Temp Pulse Pulse Resp BP Pulse Ox O2 Del Method 07/14/23 11:25 37.0 C 64 18 103/64 98 Room Air 07/14/23 07:34 36.6 C 68 18 111/57 L 98 Room Air 07/14/23 07:17 69 07/14/23 04:12 36.7 C 82 20 107/55 L 96 Room Air 07/14/23 00:00 66
--- NOTE | 2023-07-14 15:43 | Hospitalist Progress Note ---
Date of Service July 14, 2023 Assessment & Plan (1) Thigh hematoma: (2) CAD (coronary artery disease): (3) S/P AVR (aortic valve replacement): (4) S/P MVR (mitral valve replacement): (5) Subtherapeutic anticoagulation: (6) Atrial fibrillation: (7) Pacemaker: (8) Diabetes mellitus, new onset: Plan Ms. Diana is a 77 year old female that presents to the ED s/p mechanical fall with L mid-thigh hematoma development. History of AVR/MVR and on Coumadin for anticoagulation; INR goal 2.5-3.5. No leukocytosis, INR 1.6 which is subtherapeutic given her AVR/MVR. Femur X-ray, CSCT and head CT negative. Chest CTA revealed cutaneous soft tissue contusion with hematoma is seen in the left upper thigh with foci of active extravasation. L mid-thigh lateral hematoma. Skin does not appear to present as rhabdo. Patient has positive sensation in LLE and no neuropathic symptoms. Patient will be admitted for further evaluation and management of her upper thigh hematoma. Given AVR/MVR will initiate Heparin gtt and consult Cardiology. Will provide pain control and also obtain and Ortho consult. Thigh hematoma: Left upper thigh s/p mechanical fall (+) positive sensation in LLE and no neuropathic symptoms. Femur X-ray, CSCT and head CT negative Outlined hematoma with marker INR 1.6; Given AVR/MVR (outlined below) will initiate Heparin gtt and consult Cardiology. Pain control with scheduled Tylenol Appreciate Ortho input and recommendation-No indication for any surgery as per Ortho Will make sure hemoglobin remained stable and if it is we can restart Coumadin Chest CTA revealed cutaneous soft tissue contusion with hematoma is seen in the left upper thigh with foci of active extravasation. CAD: S/P AVR/MVR: subtherapeutic anticoagulation: Pacemaker s/p TBS: Complex cardiac history that includes a mechanical AVR in 2002 which was red[place] [address] Manley. CABG x3 with Jorge to the LAD, R internal mammary artery anastomosed as a free graft to the RCA and a single saphenous vein graft to the diagonal coronary artery. INR 1.6; Given AVR/MVR (outlined below) will initiate Heparin gtt and consult Cardiology. INR goal 2.5-3.5 Consult Cardiology given complexity of cardiac history and hematoma Appreciate cardiology input and recommendation Holding Coumadin today and the patient has been on intravenous heparin Will continue current dose of beta-natacha and make sure she does not have 2 orders for beta-natacha on discharge Atrial Fibrillation: Chronic Underwent an ablation at [facility]. Takes Coumadin as listed above--> placed on Heparin gtt given history as outlined above. INR goal 2.5-3.5 Takes Digoxin and Metoprolol;continue Insulin dependent diabetes mellitus, Type 2: Chronic Takes degludec; continue ACHS SSI while inpatient Check A1C in AM-8.5 HLD: Chronic Takes Rosuvastatin; continue Depression: Chronic Takes Sertraline; continue Disposition: PCP: Dr. Garcia Code Status: Full Code VTE Prophylaxis: Started Heparin gtt Admission and Anticipated Discharge Date Admission Date: July 13, 2023 Subjective 07/14/2023 The patient was seen and examined in medical telemetry unit She complains to have significant left thigh pain with swelling and localized bruising Denies any chest pain, palpitation or shortness of breath No abdominal pain nausea or vomiting Review of Systems Review of Systems: All systems reviewed and are unremarkable except as noted below Physical Exam Physical Exam: Lying in bed with some discomfort in the left thigh due to pain Constitutional: well developed, well nourished, + ill appearing and average body habitus Eyes: PERRL, conjunctivae normal, anicteric sclerae ENMT: external ear and nose normal, oropharynx normal Neck: trachea midline, no thyromegaly Respiratory: no respiratory distress Auscultation: lungs clear to auscultation bilaterally Cardiovascular: Rate/Rhythm: + irregularly irregular; not tachycardic Heart Sounds: normal S1, normal S2 and + murmur Extremities: + edema Gastrointestinal (Abdomen): Inspection/Auscultation: normal bowel sounds; abdomen not distended Percussion/Palpation: abdomen soft; abdomen nontender Musculoskeletal: Extremities: + lower leg abnormality (Swelling of the left lateral upper thigh with localized bruising and tender) Left Neurologic: normal touch/pain/proprioception and moves all extremities; no focal motor deficits Lymphatic: no cervical or axillary lymphadenopathy Results & Data Results & Data Vital Signs (Past 12 Hours) Vital Signs Temp Pulse Pulse Resp BP Pulse Ox O2 Del Method 07/14/23 14:48 62 07/14/23 11:25 37.0 C 64 18 103/64 98 Room Air 07/14/23 07:34 36.6 C 68 18 111/57 L 98 Room Air 07/14/23 07:17 69 07/14/23 04:12 36.7 C 82 20 107/55 L 96 Room Air Laboratory Results Short CBC 07/13/23 07/14/23 Range/Units 15:50 02:07 WBC 9.76 10.19 (4.8-10.8) K/ul Hgb 13.1 12.4 (12.0-16.0) g/dl Hct 38.5 36.0 L (37.0-47.0) % Plt Count 193 194 (130-400) K/uL BMP 07/13/23 07/14/23 15:50 02:07 Sodium 138 136 Potassium 3.6 3.4 L Chloride 104 104 Carbon Dioxide 24 22 BUN 17 15 Creatinine 0.73 0.71 Glucose 190 H 169 H Calcium 10.1 9.5 Liver Function 07/13/23 Range/Units 15:50 Total Bilirubin 0.9 (0.2-1.0) mg/dl AST 21 (13-39) U/L ALT 12 (7-52) U/L Alkaline Phosphatase 63 (34-104) U/L Albumin 4.2 (3.4-5.0) gm/dl Medications Administered Current Inpatient Medications Acetaminophen (Acetaminophen 325 Mg Tab) 650 mg PO Q4H PRN PRN Reason: Pain or Fever Stop: 08/12/23 18:03 Al Hydrox/Mg Hydrox/Simethicone (Aluminum/Magnesium Susp 30 Ml Udc) 15 ml PO Q4H PRN PRN Reason: Dyspepsia Stop: 08/12/23 18:03 Aspirin (Aspirin 81 Mg Ectab) 81 mg PO DAILY ARACELI Stop: 08/13/23 08:59 Dextrose (Dextrose 50% 50 Ml Syringe) 25 - 50 ml IV UD PRN; Protocol PRN Reason: Hypoglycemia Protocol Stop: 08/12/23 22:43 Digoxin (Digoxin 0.125 Mg Tab) 0.125 mg PO DAILY@1600 [facility] Stop: 08/13/23 15:59 Fluticasone Propionate (Fluticasone Propionate Na Spr 16 Gm Btl) 1 sprays NA HS PRN PRN Reason: nasal allergies Stop: 08/12/23 22:41 Furosemide (Furosemide 20 Mg Tab) 20 mg PO Q48H ARACELI Stop: 08/14/23 08:59 Furosemide (Furosemide 40 Mg Tab) 40 mg PO Q48H ARACELI Stop: 08/13/23 08:59 Last Admin: 07/14/23 07:37 Dose: 40 mg Glucagon (Glucagon For Inj 1 Mg Vial) 1 mg SQ UD PRN; Protocol PRN Reason: Hypoglycemia Protocol Stop: 08/12/23 22:43 Glucose (Glucose 40% Gel 15 Gm Tube) 15 - 30 gm PO UD PRN; Protocol PRN Reason: Hypoglycemia Protocol Stop: 08/12/23 22:43 Glucose (Glucose 10 Tab/Tube) 4 - 8 tab PO UD PRN; Protocol PRN Reason: Hypoglycemia Treatment Stop: 08/12/23 22:43 Heparin Sodium/Dextrose (Heparin Sodium/Dextrose) 25,000 units in 500 mls @ 20 mls/hr IV .Q24H ARACELI; Protocol Stop: 08/12/23 19:29 Last Titration: 07/14/23 03:30 Dose: 1,000 units/hr, 20 mls/hr Acetaminophen (Ofirmev) 1,000 mg in 100 mls @ 400 mls/hr IV Q8H ARACELI Stop: 07/16/23 19:59 Last Infusion: 07/14/23 05:38 Dose: Infused Insulin Aspart (Insulin Aspart Per Unit Charge) 0 units SC ACHS ARACELI Stop: 08/13/23 07:29 Last Admin: 07/14/23 13:05 Dose: 5 units Insulin Glargine (Lantus Per Unit Charge) 15 units SQ DAILY ARACELI Stop: 08/13/23 08:59 Last Admin: 07/14/23 09:01 Dose: 15 units Magnesium Hydroxide (Magnesium Hydroxide Susp 30 Ml Udc) 30 ml PO Q12H PRN PRN Reason: Constipation Stop: 08/12/23 18:03 Metoprolol Tartrate (Metoprolol Tartrate 50 Mg Tab) 50 mg PO AMHS ARACELI Stop: 08/13/23 08:59 Last Admin: 07/14/23 07:35 Dose: 50 mg Miscellaneous (Carbohydrates For Hypoglycemia ) 15 - 30 gm PO UD PRN PRN Reason: Hypoglycemia Protocol Stop: 08/12/23 22:43 Miscellaneous Information (Pharmacy Glycemic Mgmt Consult) 1 each N/A UD PRN PRN Reason: Consult Stop: 08/12/23 22:43 Nitroglycerin (Nitroglycerin Sl 0.4 Mg/Tab Tab) 0.4 mg SL Q5M PRN PRN Reason: Chest Pain Stop: 08/12/23 22:41 Ondansetron HCl (Ondansetron Inj 2 Mg/Ml 2 Ml Vial) 4 mg IV Q6H PRN PRN Reason: Nausea Stop: 08/12/23 18:03 Oxybutynin Chloride (Oxybutynin Chloride Xl 5 Mg Tabcr) 5 mg PO DAILY ARACELI Stop: 08/13/23 08:59 Last Admin: 07/14/23 07:38 Dose: 5 mg Oxycodone HCl (Oxycodone Hcl Ir 5 Mg Tab (Immediate Release)) 5 mg PO Q6H PRN PRN Reason: Pain Stop: 07/27/23 19:59 Last Admin: 07/14/23 10:36 Dose: 5 mg Polyethylene Glycol (Polyethylene (Miralax) 17 Gm Pack) 17 gm PO DAILY PRN PRN Reason: Constipation Stop: 08/12/23 18:03 Rosuvastatin Calcium (Rosuvastatin Calcium 5 Mg Tab) 5 mg PO DAILY ARACELI Stop: 08/13/23 08:59 Last Admin: 07/14/23 07:36 Dose: 5 mg Sertraline HCl (Sertraline Hcl 50 Mg Tablet) 50 mg PO QAM ARACELI Stop: 08/13/23 08:59 Last Admin: 07/14/23 07:37 Dose: 50 mg Vitamin D (Cholecalciferol 25 Mcg (1000 Units) Tab) 50 mcg PO QAM ARACELI Stop: 08/13/23 08:59 Last Admin: 07/14/23 07:35 Dose: 50 mcg (2) CAD (coronary artery disease) Coronary Disease-Associated Artery/Lesion type: [place] artery [place] vs. transplanted heart: [place] heart Associated angina: without angina Qualified Code(s): I25.10 - Atherosclerotic heart disease of [place] coronary artery without angina pectoris
[2023-07-14] MEDS: DIGOXIN 0.125 MG TAB PO SCH (17:29)
[2023-07-14] MEDS: METOPROLOL SUCC 50MG EXT REL TAB PO SCH (20:59)
[2023-07-15 06:15] LABS: BUN Creatinine Ratio 17.8 (10-20); Calcium 9.3 mg/dl (8.6-10.3); Est GFR (African American) 92.1 ml/min; Est GFR (Non-African American) 79.4 ml/min; Magnesium 1.9 mg/dl (1.7-2.4); Potassium 3.7 mmol/L (3.5-5.1)
[2023-07-15 06:16] LABS: Basophils # (auto) 0.06 K/uL (0.00-0.20); Basophils % (auto) 0.7 %; Eosinophils # (auto) 0.12 K/uL (0.00-0.50); Eosinophils % (auto) 1.4 %; Hematocrit (blood only) 32.5 % (37.0-47.0); Immature Granulocytes # (auto) 0.03 K/uL (0.01-0.20); Immature Granulocytes % (auto) 0.3 %; Lymphocytes # (auto) 1.97 K/uL (1.20-3.40); Lymphocytes % (auto) 22.9 %; Mean Corpuscular Hemoglobin 28.4 pg (25.0-34.0); Mean Corpuscular Hgb Conc 33.8 g/dL (32.0-36.0); Mean Corpuscular Volume 83.8 fL (80.0-100.0); Mean Platelet Volume 11.1 fL (9.4-12.4); Monocytes # (auto) 1.07 K/uL (0.11-0.59); Monocytes % (auto) 12.4 %; Neutrophils # (auto) 5.35 K/uL (1.40-6.50); Neutrophils % (auto) 62.3 %; Platelet Count 187 K/uL (130-400); RDW Coefficient of Variation 15.5 % (11.5-14.5); Red Blood Count 3.88 M/uL (4.20-5.40)
[2023-07-15 06:27] LABS: ANTI-Xa, UFH(UnfractionatedHep 0.44 IU/ml (0.3-0.7)
[2023-07-15] MEDS: FUROSEMIDE 20 MG TAB PO SCH (08:47)
[2023-07-15] MEDS: POTASSIUM CHLORIDE CRTAB 20 MEQ TABCR PO STA (08:59)
[2023-07-15 10:04] LABS: INR 1.2 (0.9-1.1); Prothrombin Time 13.1 Seconds (9.0-12.0)
--- NOTE | 2023-07-15 10:09 | Pharmacy Report ---
Pharmacy Glycemic Short Note 2 - Date of Service July 15, 2023 - Glycemic Short BSG Results (Last 24 hours): 07/14/23 07/14/23 07/14/23 11:58 16:58 20:22 Glucose POC Glucose 169 H 161 H 144 H 07/15/23 07/15/23 05:41 08:16 Glucose 151 H POC Glucose 150 H OUTPATIENT ANTIDIABETIC REGIMEN: * Tresiba 26 units SQ Daily * Jardiance 25mg PO Daily * A1c 8.5% 07/14/23 ASSESSMENT: * 77 yo F, admitted s/p mechanical fall + hematoma, blood sugars well controlled, received 15 units basal and 15 units bolus insulin yesterday. * Continue to titrate doses as needed. PLAN FOR INPATIENT GLYCEMIC CONTROL: * Hold outpatient oral diabetes medications * Basal insulin * Lantus 15 units SQ daily * Bolus insulin * NovoLog per scale ACHS or Q6hrs while NPO * Goal Range: Low 120 mg/dL - High 150 mg/dL * Correction Factor: 30 mg/dL/unit * Nutritional / Prandial insulin per carb ratio of 1 unit per 10 grams CHO consumed
[2023-07-15 13:11] LABS: Hematocrit (blood only) 36.3 % (37.0-47.0)
--- NOTE | 2023-07-15 14:24 | Cardiology Progress Note ---
Date of Service July 15, 2023 Assessment & Plan (1) Traumatic hematoma of left thigh: (2) Anticoagulation goal of INR 2.5 to 3.5: Plan: * Patient with history of persistent atrial fibrillation, mechanical mitral valve prosthesis, mechanical aortic valve prosthesis, therefore INR goal is 2.5-3.5. * INR 1.4,Most recent hemoglobin 12. * Physical therapy input noted and appreciated * Continue heparin bridge. Resume Coumadin. Patient typically takes 2 mg alternating with 3 mg, start 3 mg daily.. Admission and Anticipated Discharge Date Admission Date: July 13, 2023 Subjective Patient seen in cardiology follow-up. Hemoglobin relatively stable. Remains on heparin infusion. Seen by physical therapy today. Physical Exam Constitutional: WD/WN, vitals as above Respiratory: normal respiratory effort, lungs clear to auscultation Cardiovascular: Rate/Rhythm: + irregularly irregular Gastrointestinal (Abdomen): normal bowel sounds, soft, nontender, no hepatosplenomegaly Musculoskeletal: Left buttock/upper leg hematoma with noted ecchymosis, relatively unchanged. Neurologic: PERRL, EOMI, accommodation nl, no face palsy, no dysarthria Results & Data Vital Signs (Past 12 Hours) Vital Signs Temp Pulse Pulse Resp BP Pulse Ox O2 Del Method 07/15/23 11:20 36.4 C L 77 15 120/74 97 Room Air 07/15/23 07:41 36.4 C L 71 14 101/63 98 Room Air 07/15/23 07:00 Room Air 07/15/23 07:00 78 07/15/23 03:12 36.7 C 66 16 104/58 L 97 Room Air
--- NOTE | 2023-07-15 15:32 | Hospitalist Progress Note ---
Date of Service July 15, 2023 Assessment & Plan (1) Thigh hematoma: (2) CAD (coronary artery disease): (3) S/P AVR (aortic valve replacement): (4) S/P MVR (mitral valve replacement): (5) Subtherapeutic anticoagulation: (6) Atrial fibrillation: (7) Pacemaker: (8) Diabetes mellitus, new onset: Plan 77 year old female that presents to the ED s/p mechanical fall with L mid-thigh hematoma development. History of AVR/MVR and on Coumadin for anticoagulation; INR goal 2.5-3.5. At presentation - No leukocytosis, INR 1.6 which is subtherapeutic given her AVR/MVR. She is being managed for the following: Thigh hematoma: Left upper thigh, s/p mechanical fall Admitting Femur X-ray, C Sp CT and head CT negative Admitting imaging s/o left thigh hematoma Outlined hematoma with marker at presentation. Admitting INR 1.6 ISO AVR/MVR status. Subtherapeutic level. Patient reports improving swelling, no signs of infection at the hematoma site. Orthopedics evaluated, appreciate recommendation. Hemoglobin has been stable, patient has been on heparin drip, resume Coumadin from today. CAD: S/P AVR/MVR: subtherapeutic anticoagulation: Pacemaker s/p TBS: Complex cardiac history that includes a mechanical AVR in 2002 which was red[place] [address] Manley. CABG x3 with Jorge to the LAD, R internal mammary artery anastomosed as a free graft to the RCA and a single saphenous vein graft to the diagonal coronary artery. Presentation INR 1.6. INR goal 2.5-3.5 cardiology on board, patient on heparin drip and Coumadin resumed today. Closely monitor PT/INR and H&H. Atrial Fibrillation: Chronic. Underwent an ablation at [facility]. Takes Coumadin as listed above--> placed on Heparin gtt given history as outlined above. INR goal 2.5-3.5 Takes Digoxin and Metoprolol;continue Insulin dependent diabetes mellitus, Type 2: Chronic Takes degludec; continue ACHS SSI while inpatient f/u with diabetic clinic for continued management HLD: Chronic. Takes Rosuvastatin; continue Depression: Chronic. Takes Sertraline; continue Disposition: PCP: Dr. Garcia Code Status: Full Code VTE Prophylaxis: Heparin gtt, coumadin resumed 07/14. 07/14: updated brother and storm at bedside. updated pt's dtr Phylicia Hickman over the phone, answered all her questions. She stated she would like to speak w/ CM, I sent TT to CM w/ her name and number and her desire to speak with them. Admission and Anticipated Discharge Date Admission Date: July 13, 2023 Subjective Patient was seen and examined at bedside. Patient was sitting up in chair, on room air, NAD, resting comfortably. Patient's brother and [id number] at bedside who are also updated on plan of care. Patient reports left thigh hematoma swelling improving. Patient reports pain under control, denies febrile illness, reports eating okay and moving bowels okay. Patient reports feeling better. Physical Exam Physical Exam: GENERAL: Alert and oriented x3. NAD, on RA. HEENT: No pallor, no icterus. Pupils equal, round and reactive to light. Oral mucosa moist. NECK: No JVD, no neck masses. HEART: S1 and S2 heard. irregular rate and rhythm. No murmur, no gallop. RESPIRATORY SYSTEM: Normal AP diameter. No accessory muscle use. No wheezing, no crackles. ABDOMEN: Soft, bowel sounds present, nontender, no distention. CENTRAL NERVOUS SYSTEM: No facial droop. Speech is clear. Obeys simple commands. Moves extremities. EXTREMITIES: No edema, no erythema seen. Left upper thigh x lateral hematoma/ecchymoses noted, non tender on exam, no Signs of infection. Results & Data Results & Data Vital Signs (Past 12 Hours) Vital Signs Temp Pulse Pulse Resp BP Pulse Ox O2 Del Method 07/15/23 15:00 62 07/15/23 11:20 36.4 C L 77 15 120/74 97 Room Air 07/15/23 07:41 36.4 C L 71 14 101/63 98 Room Air 07/15/23 07:00 Room Air 07/15/23 07:00 78 (2) CAD (coronary artery disease) Coronary Disease-Associated Artery/Lesion type: [place] vs. transplanted heart: [place] heart Associated angina: without angina Qualified Code(s): I25.10 - Atherosclerotic heart disease of [place] coronary artery without angina pectoris
[2023-07-15] MEDS ORDERED: WARFARIN SOD 1 MG TAB PO SCH (16:00)
[2023-07-15] MEDS: WARFARIN SOD 3 MG TAB PO SCH (16:09)
[2023-07-16 06:36] LABS: Hematocrit (blood only) 32.5 % (37.0-47.0); Hemoglobin 10.8 g/dl (12.0-16.0); Mean Corpuscular Hemoglobin 28.4 pg (25.0-34.0); Mean Corpuscular Hgb Conc 33.2 g/dL (32.0-36.0); Mean Corpuscular Volume 85.5 fL (80.0-100.0); Mean Platelet Volume 11.2 fL (9.4-12.4); Platelet Count 209 K/uL (130-400); RDW Coefficient of Variation 15.4 % (11.5-14.5); RDW Standard Deviation 47.9 fL (36.4-46.3); White Blood Count 8.37 K/ul (4.8-10.8)
[2023-07-16 07:03] LABS: BUN Creatinine Ratio 21.6 (10-20); Calcium 9.6 mg/dl (8.6-10.3); Creatinine Clr Calc Pharmacy 54.6 ml/min; Est GFR (African American) 90.6 ml/min; Est GFR (Non-African American) 78.1 ml/min; Potassium 3.9 mmol/L (3.5-5.1)
[2023-07-16 07:05] LABS: ANTI-Xa, UFH(UnfractionatedHep 0.39 IU/ml (0.3-0.7); INR 1.2 (0.9-1.1); Prothrombin Time 12.6 Seconds (9.0-12.0)
--- NOTE | 2023-07-16 16:13 | Hospitalist Progress Note ---
Date of Service July 16, 2023 Assessment & Plan (1) Thigh hematoma: (2) CAD (coronary artery disease): (3) S/P AVR (aortic valve replacement): (4) S/P MVR (mitral valve replacement): (5) Subtherapeutic anticoagulation: (6) Atrial fibrillation: (7) Pacemaker: (8) Diabetes mellitus, new onset: Plan 77 year old female that presents to the ED s/p mechanical fall with L mid-thigh hematoma development. History of AVR/MVR and on Coumadin for anticoagulation; INR goal 2.5-3.5. At presentation - No leukocytosis, INR 1.6 which is subtherapeutic given her AVR/MVR. She is being managed for the following: Thigh hematoma: Left upper thigh, s/p mechanical fall Admitting Femur X-ray, C Sp CT and head CT negative Admitting imaging s/o left thigh hematoma Outlined hematoma with marker at presentation. Admitting INR 1.6 ISO AVR/MVR status. Subtherapeutic level. Patient reports improving swelling, no signs of infection at the hematoma site. Orthopedics evaluated, appreciate recommendation. Hemoglobin has been stable, patient has been on heparin drip, resumed Coumadin from 07/14. CAD: S/P AVR/MVR: subtherapeutic anticoagulation: Pacemaker s/p TBS: Complex cardiac history that includes a mechanical AVR in 2002 which was red[place] [address] Manley. CABG x3 with Jorge to the LAD, R internal mammary artery anastomosed as a free graft to the RCA and a single saphenous vein graft to the diagonal coronary artery. Presentation INR 1.6. INR goal 2.5-3.5 cardiology on board, patient on heparin drip and Coumadin resumed 07/14. Closely monitor PT/INR and H&H. Atrial Fibrillation: Chronic. Underwent an ablation at [facility]. Takes Coumadin as listed above--> placed on Heparin gtt given history as outlined above. INR goal 2.5-3.5 Takes Digoxin and Metoprolol;continue Insulin dependent diabetes mellitus, Type 2: Chronic Takes degludec; continue ACHS SSI while inpatient f/u with diabetic clinic for continued management HLD: Chronic. Takes Rosuvastatin; continue Depression: Chronic. Takes Sertraline; continue Disposition: PCP: Dr. Garcia Code Status: Full Code VTE Prophylaxis: Heparin gtt, coumadin resumed 07/14. 07/14: updated brother and storm at bedside. updated pt's dtr Phylicia Hickman over the phone, answered all her questions. She stated she would like to speak w/ CM, I sent TT to CM w/ her name and number and her desire to speak with them. Admission and Anticipated Discharge Date Admission Date: July 13, 2023 Subjective Patient was seen and examined at bedside. Patient was sitting up in chair, on room air, NAD, resting comfortably. Patient reports pain under control, denies febrile illness, reports eating okay and moving bowels okay.. Physical Exam Physical Exam: GENERAL: Alert and oriented x3. NAD, on RA. HEENT: No pallor, no icterus. Pupils equal, round and reactive to light. Oral mucosa moist. NECK: No JVD, no neck masses. HEART: S1 and S2 heard. irregular rate and rhythm. No murmur, no gallop. RESPIRATORY SYSTEM: Normal AP diameter. No accessory muscle use. No wheezing, no crackles. ABDOMEN: Soft, bowel sounds present, nontender, no distention. CENTRAL NERVOUS SYSTEM: No facial droop. Speech is clear. Obeys simple commands. Moves extremities. EXTREMITIES: No edema, no erythema seen. Left upper thigh x lateral hematoma/ecchymoses noted, + tender on exam, no Signs of infection. Results & Data Results & Data Vital Signs (Past 12 Hours) Vital Signs Temp Pulse Pulse Resp BP BP Pulse Ox 07/16/23 15:52 64 07/16/23 15:34 36.1 C L 66 15 116/56 L 98 07/16/23 14:00 72 07/16/23 11:12 36.0 C L 67 15 112/71 97 07/16/23 08:02 36.5 C 62 18 122/72 121/70 95 07/16/23 08:00 07/16/23 07:00 72 O2 Del Method 07/16/23 15:52 07/16/23 15:34 Room Air 07/16/23 14:00 07/16/23 11:12 Room Air 07/16/23 08:02 Room Air 07/16/23 08:00 Room Air 07/16/23 07:00 (2) CAD (coronary artery disease) Coronary Disease-Associated Artery/Lesion type: [place] artery [place] vs. transplanted heart: [place] heart Associated angina: without angina Qualified Code(s): I25.10 - Atherosclerotic heart disease of [place] coronary artery without angina pectoris
[2023-07-17 05:51] LABS: Hematocrit (blood only) 32.3 % (37.0-47.0); Hemoglobin 10.7 g/dl (12.0-16.0)
[2023-07-17 06:15] LABS: ANTI-Xa, UFH(UnfractionatedHep 0.32 IU/ml (0.3-0.7); INR 1.3 (0.9-1.1); Prothrombin Time 13.8 Seconds (9.0-12.0)
[2023-07-17] MEDS: WARFARIN SOD 5 MG TAB PO ONE (08:45)
--- NOTE | 2023-07-17 09:51 | Pharmacy Report ---
Pharmacy Glycemic Short Note 2 - Date of Service July 17, 2023 - Glycemic Short BSG Results (Last 24 hours): 07/16/23 07/16/23 07/16/23 12:22 17:28 20:29 POC Glucose 153 H 132 H 145 H 07/17/23 08:14 POC Glucose 129 H OUTPATIENT ANTIDIABETIC REGIMEN: * Tresiba 26 units SQ Daily * Jardiance 25mg PO Daily * A1c 8.5% 07/14/23 ASSESSMENT: 07/16 * Patient received total of 30 units of insulin yesterday, of which 15 units were basal insulin * Fasting BSG was 129 mg/dL, well controlled BSGs * Continue current regimen 07/14 * 77 yo F, admitted s/p mechanical fall + hematoma, blood sugars well controlled, received 15 units basal and 15 units bolus insulin yesterday. * Continue to titrate doses as needed. PLAN FOR INPATIENT GLYCEMIC CONTROL: * Hold outpatient oral diabetes medications * Basal insulin * Lantus 15 units SQ daily * Bolus insulin * NovoLog per scale ACHS or Q6hrs while NPO * Goal Range: Low 120 mg/dL - High 150 mg/dL * Correction Factor: 30 mg/dL/unit * Nutritional / Prandial insulin per carb ratio of 1 unit per 10 grams CHO consumed
--- NOTE | 2023-07-17 10:23 | Electrocardiogram Report ---
Test Reason : Blood Pressure : / mmHG Vent. Rate : 061 BPM Atrial Rate : 072 BPM P-R Int : 000 ms QRS Dur : 184 ms QT Int : 494 ms P-R-T Axes : 000 073 049 degrees QTc Int : 497 ms Ventricular-paced rhythm Abnormal ECG When compared with ECG of 09-JUN-2022 19:45, Vent. rate has decreased BY 17 BPM Confirmed by Mark Lundberg ([id number]) on 07/17/2023 10:23:26 AM Referred By: REFERRED SELF Confirmed By:Cassius Lundberg
[2023-07-17] MEDS: ACETAMINOPHEN 325 MG TAB PO PRN (12:38)
--- NOTE | 2023-07-17 15:09 | Hospitalist Progress Note ---
Date of Service July 17, 2023 Assessment & Plan (1) Thigh hematoma: (2) CAD (coronary artery disease): (3) S/P AVR (aortic valve replacement): (4) S/P MVR (mitral valve replacement): (5) Subtherapeutic anticoagulation: (6) Atrial fibrillation: (7) Pacemaker: (8) Diabetes mellitus, new onset: Plan 77 year old female that presents to the ED s/p mechanical fall with L mid-thigh hematoma development. History of AVR/MVR and on Coumadin for anticoagulation; INR goal 2.5-3.5. At presentation - No leukocytosis, INR 1.6 which is subtherapeutic given her AVR/MVR. She is being managed for the following: Thigh hematoma: Left upper thigh, s/p mechanical fall Admitting Femur X-ray, C Sp CT and head CT negative Admitting imaging s/o left thigh hematoma Outlined hematoma with marker at presentation. Admitting INR 1.6 ISO AVR/MVR status. Subtherapeutic level. Patient reports improving swelling, no signs of infection at the hematoma site. Orthopedics evaluated, appreciate recommendation. Hemoglobin has been stable, patient has been on heparin drip, resumed Coumadin from 07/14. extra dose on 07/16. CAD: S/P AVR/MVR: subtherapeutic anticoagulation: Pacemaker s/p TBS: Complex cardiac history that includes a mechanical AVR in 2002 which was red[place] [address] Manley. CABG x3 with Jorge to the LAD, R internal mammary artery anastomosed as a free graft to the RCA and a single saphenous vein graft to the diagonal coronary artery. Presentation INR 1.6. INR goal 2.5-3.5 cardiology evaled, appreciate recs patient on heparin drip and Coumadin resumed 07/14. extra dose of 5 mg on 07/16 Closely monitor PT/INR and H&H. Atrial Fibrillation: Chronic. Underwent an ablation at [facility]. Takes Coumadin as listed above--> placed on Heparin gtt given history as outlined above. INR goal 2.5-3.5 Takes Digoxin and Metoprolol;continue Insulin dependent diabetes mellitus, Type 2: Chronic Takes degludec; continue ACHS SSI while inpatient f/u with diabetic clinic for continued management HLD: Chronic. Takes Rosuvastatin; continue Depression: Chronic. Takes Sertraline; continue Disposition: PCP: Dr. Garcia Code Status: Full Code VTE Prophylaxis: Heparin gtt, coumadin resumed 07/14. 07/14: updated brother and storm at bedside. updated pt's dtr Phylicia Hickman [phone] over the phone, answered all her questions. She stated she would like to speak w/ CM, I sent TT to CM w/ her name and number and her desire to speak with them. Admission and Anticipated Discharge Date Admission Date: July 13, 2023 Subjective Patient was seen and examined at bedside. Patient was lying in bed, on room air, NAD, resting comfortably. Patient reports pain under control, denies febrile illness, reports eating okay and moving bowels okay. Reports feeling better. Physical Exam Physical Exam: GENERAL: Alert and oriented x3. NAD, on RA. HEENT: No pallor, no icterus. Pupils equal, round and reactive to light. Oral mucosa moist. NECK: No JVD, no neck masses. HEART: S1 and S2 heard. irregular rate and rhythm. No murmur, no gallop. RESPIRATORY SYSTEM: Normal AP diameter. No accessory muscle use. No wheezing, no crackles. ABDOMEN: Soft, bowel sounds present, nontender, no distention. CENTRAL NERVOUS SYSTEM: No facial droop. Speech is clear. Obeys simple commands. Moves extremities. EXTREMITIES: No edema, no erythema seen. Left upper thigh x lateral hematoma/ecchymoses noted, + tender on exam, no Signs of infection. Results & Data Results & Data Vital Signs (Past 12 Hours) Vital Signs Temp Pulse Pulse Resp BP BP Pulse Ox 07/17/23 11:28 37.1 C 60 18 102/65 97 07/17/23 08:00 07/17/23 07:59 36.4 C L 68 18 127/71 97 07/17/23 07:00 71 07/17/23 04:07 36.4 C L 81 18 125/70 97 O2 Del Method 07/17/23 11:28 Room Air 07/17/23 08:00 Room Air 07/17/23 07:59 Room Air 07/17/23 07:00 07/17/23 04:07 Room Air (2) CAD (coronary artery disease) Coronary Disease-Associated Artery/Lesion type: [place] artery [place] vs. transplanted heart: [place] heart Associated angina: without angina Qualified Code(s): I25.10 - Atherosclerotic heart disease of [place] coronary artery without angina pectoris
--- NOTE | 2023-07-17 16:17 | Cardiology Progress Note ---
Date of Service July 17, 2023 Assessment & Plan (1) Traumatic hematoma of left thigh: (2) Anticoagulation goal of INR 2.5 to 3.5: Plan: * Patient with history of persistent atrial fibrillation, mechanical mitral valve prosthesis, mechanical aortic valve prosthesis, therefore INR goal is 2.5-3.5. * INR 1.3,Most recent hemoglobin 10.7 * Physical therapy input noted and appreciated * Continue heparin bridge. Coumadin 5 mg 07/17/2023 followed by 3 mg daily to resume on 07/18/2023. * Continue to monitor hemoglobin. Admission and Anticipated Discharge Date Admission Date: July 13, 2023 Subjective Patient seen in cardiology follow-up. Overall feels well. Walked utilizing the walker with physical therapy. Physical Exam Constitutional: WD/WN, vitals as above Respiratory: normal respiratory effort, lungs clear to auscultation Cardiovascular: Rate/Rhythm: + irregularly irregular [place] prosthetic heart sounds noted Gastrointestinal (Abdomen): normal bowel sounds, soft, nontender, no hepatosplenomegaly Neurologic: PERRL, EOMI, accommodation nl, no face palsy, no dysarthria Results & Data Vital Signs (Past 12 Hours) Vital Signs Temp Pulse Pulse Resp BP Pulse Ox O2 Del Method 07/17/23 16:10 69 07/17/23 15:16 36.6 C 77 20 101/64 98 Room Air 07/17/23 11:28 37.1 C 60 18 102/65 97 Room Air 07/17/23 08:00 Room Air 07/17/23 07:59 36.4 C L 68 18 127/71 97 Room Air 07/17/23 07:00 71
--- NOTE | 2023-07-18 02:11 | Communication Note ---
Date of Service: July 18, 2023 Patient complaining of increased back and hip pain. Left thigh hematoma progressing as per parts sales manager. Ap Left thigh hematoma Back pain rule out retroperitoneal bleed Ongoing anticoagulation for mechanical mitral valve A.m. CBC now CT thigh, CT abdomen pelvis Hold heparin and Coumadin for now Will relay to AM provider.
[2023-07-18 03:27] LABS: BUN Creatinine Ratio 25.3 (10-20); Calcium 9.7 mg/dl (8.6-10.3); Creatinine Clr Calc Pharmacy 42.8 ml/min; Est GFR (African American) 74.5 ml/min; Est GFR (Non-African American) 64.3 ml/min; Potassium 3.6 mmol/L (3.5-5.1)
[2023-07-18 03:31] LABS: Basophils # (auto) 0.04 K/uL (0.00-0.20); Basophils % (auto) 0.5 %; Eosinophils # (auto) 0.07 K/uL (0.00-0.50); Eosinophils % (auto) 0.9 %; Hematocrit (blood only) 32.1 % (37.0-47.0); Hemoglobin 10.5 g/dl (12.0-16.0); Immature Granulocytes # (auto) 0.11 K/uL (0.01-0.20); Immature Granulocytes % (auto) 1.4 %; Lymphocytes # (auto) 1.67 K/uL (1.20-3.40); Lymphocytes % (auto) 21.1 %; Mean Corpuscular Hemoglobin 28.7 pg (25.0-34.0); Mean Corpuscular Hgb Conc 32.7 g/dL (32.0-36.0); Mean Corpuscular Volume 87.7 fL (80.0-100.0); Mean Platelet Volume 10.8 fL (9.4-12.4); Monocytes # (auto) 0.94 K/uL (0.11-0.59); Monocytes % (auto) 11.9 %; Neutrophils # (auto) 5.09 K/uL (1.40-6.50); Neutrophils % (auto) 64.2 %; Platelet Count 259 K/uL (130-400); RDW Standard Deviation 50.6 fL (36.4-46.3); Red Blood Count 3.66 M/uL (4.20-5.40); White Blood Count 7.92 K/ul (4.8-10.8)
[2023-07-18 03:43] LABS: ANTI-Xa, UFH(UnfractionatedHep 0.21 IU/ml (0.3-0.7); INR 1.7 (0.9-1.1); Partial Thromboplastin Ratio 2.2; Partial Thromboplastin Time 58 Seconds (21-31); Prothrombin Time 17.7 Seconds (9.0-12.0)
--- NOTE | 2023-07-18 06:32 | CT Scan Report ---
Exam(s): CT EXTREMITY LEFT LOWER Without Contrast EXAM: CT Left Lower Extremity Without Intravenous Contrast CLINICAL HISTORY: Reason for exam: worsening pain/hematoma. TECHNIQUE: Axial computed tomography images of the left lower extremity without intravenous contrast. CTDI is 12.17 mGy and DLP is 599.89 mGy-cm. Automated exposure control was utilized for the study. A dose lowering technique was utilized adhering to the principles of ALARA. COMPARISON: No relevant prior studies available. FINDINGS: Bones/joints: Unremarkable. No acute fracture. No dislocation. Soft tissues: There is a 7.4 x 6.8 x 3.7 cm echogenicity is hematoma seen in the left lateral gluteal region. IMPRESSION: Subcutaneous tissue hematoma in the left lateral gluteal region Electronically signed by: Anand Taylor MD 07/18/23 06:31 AM
--- NOTE | 2023-07-18 06:38 | CT Scan Report ---
Exam(s): CT ABDOMEN + PELVIS Without Contrast EXAM: CT Abdomen and Pelvis Without Intravenous Contrast CLINICAL HISTORY: Reason for exam: worsening back pain, heparin. TECHNIQUE: Axial computed tomography images of the abdomen and pelvis without intravenous contrast. CTDI is 12.17 mGy and DLP is 1091.17 mGy-cm. Automated exposure control was utilized for the study. A dose lowering technique was utilized adhering to the principles of ALARA. COMPARISON: No relevant prior studies available. FINDINGS: Lung bases: Unremarkable. No mass. No consolidation. Pleural space: Small right pleural effusion. Heart: Mild cardiomegaly. ABDOMEN: Liver: There is slight lobulation of the liver outline which can be associated with cirrhosis. Gallbladder and bile ducts: cholecystectomy. No ductal dilation. Spleen: Unremarkable. No splenomegaly. Adrenals: Unremarkable. No mass. Kidneys and ureters: Unremarkable. No obstructing stones. No hydronephrosis. Stomach and bowel: Unremarkable. No obstruction. No mucosal thickening. PELVIS: Appendix: No findings to suggest acute appendicitis. Bladder: Unremarkable. No stones. Reproductive: Unremarkable as visualized. ABDOMEN and PELVIS: Intraperitoneal space: Small amount of free fluid seen in the pelvis. No free air. Bones/joints: No acute fracture. No dislocation. Severe L5/S1 degenerative disc disease. Mild Soft tissues: 7.4 cm subcutaneous tissue hematoma seen in the left lateral gluteal region. Vasculature: Unremarkable. No abdominal aortic aneurysm. Lymph nodes: Unremarkable. No enlarged lymph nodes. IMPRESSION: 1. Small right pleural effusion 2. Subcutaneous tissue hematoma in the left lateral gluteal region 3. Small amount of free fluid in the pelvis Electronically signed by: Anand Taylor MD 07/18/23 06:37 AM
[2023-07-18 07:04] LABS: Hematocrit (blood only) 31.8 % (37.0-47.0); Hemoglobin 10.3 g/dl (12.0-16.0)
[2023-07-18 13:28] LABS: Hematocrit (blood only) 32.5 % (37.0-47.0); Hemoglobin 10.7 g/dl (12.0-16.0)
--- NOTE | 2023-07-18 13:57 | Cardiology Progress Note ---
<Statement entered by Marva Cheung, - 07/18/23 15:10> I have reviewed the advanced practitioner's documentation and agree with the plan of care. I accept the responsibility for the associated risk. Pt seen in cardiology consultation due to traumatic left thigh hematoma with underlying Mechanical mitral and aortic valve replacements. There is a concern that the hematoma is slightly larger today-on repeat CT it is reported slightly larger but the hospitalist spoke with orthopedics and based on their review of the CT it is relatively stable Pt is at a high risk of CVA given her mechanical valves with a lower INR I recommend we still need to continue the IV heparin bridge with trying to keep the PTT on the lower end and then would continue Coumadin-recommend only giving 3mg today I also recommend if possible wrapping a compression bandage around the upper thigh to help with minimizing expansion of it I discussed my recommendations with the hospitalist over the phone and he agreed with my plan Date of Service July 18, 2023 Assessment & Plan (1) Traumatic hematoma of left thigh: (2) Anticoagulation goal of INR 2.5 to 3.5: Plan -Patient with history of persistent atrial fibrillation, mechanical mitral valve prosthesis, mechanical aortic valve prosthesis, therefore INR goal is 2.5-3.5 - imaging repeated this morning indicated that the hematoma maybe slightly larger - hemoglobin hematocrit levels are stable - given her mechanical valves there is a high concern of thrombosis without therapeutic anticoagulation - on physical exam it does appear that there are extended beyond the outlined area of the hematoma - would continue transition to warfarin with close monitoring - recommend wrapping the hip and thigh area with an Marcus wrap for compression - case coordinated with the attending service Case discussed with Dr. Cheung. Please see attestation for additional recommendations. GEOFFREY Franco Department of Cardiology, [facility] This chart was completed in part utilizing Speech Voice Recognition Software. Grammatical errors, random word insertions, pronoun errors, and incomplete sentences are an occasional consequence of this system due to software limitations, ambient noise, and hardware issues. Any formal questions or concerns about the content, text, or information contained within the body of this dictation should be directly addressed to the provider for clarification. Admission and Anticipated Discharge Date Admission Date: July 13, 2023 Subjective 77-year-old female seen in cardiology follow up in regard to traumatic left thigh hematoma. contacted by attending service with concern increase in size this morning. patient advises she has had worsening pain and feels that the hematoma is maybe slightly larger than previous with further displacement of discoloration along with slightly increased level of edema of the area. Denies chest pain, SOB, palpitations, dizziness, syncope, edema, orthopnea and PND. still reports a significant level of discomfort of the left hip and thigh Review of Systems Constitutional: no fever, no chills and no fatigue Respiratory: no cough, no chest congestion and no dyspnea on exertion Cardiovascular: + edema; no chest pain, no dyspnea, no p alpitations and no syncope Gastrointestinal: no abdominal pain, no nausea and no vomiting Musculoskeletal: as per Subjective / HPI Integumentary: as per Subjective / HPI Physical Exam Constitutional: WD/WN, vitals as above well developed and well nourished; no acute distress Neck: normal visual inspection and trachea midline Respiratory: normal respiratory effort, lungs clear to auscultation Cardiovascular: Rate/Rhythm: regular rate and + irregularly irregular Vessels: normal peripheral pulses; no JVD and no carotid bruit Gastrointestinal (Abdomen): normal bowel sounds, soft, nontender, no hepatosplenomegaly Musculoskeletal: no cyanosis or clubbing, extremities motor strength 5/5 Skin: Trauma: + hematoma (Large ecchymotic.edematous area noted to left hip and thigh) Psychiatric: A+Ox3, euthymic affect Speech: normal rate/rhythm/volume of sp eech Results & Data Vital Signs (Past 12 Hours) Vital Signs Temp Pulse Pulse Resp BP Pulse Ox Pulse Ox 07/18/23 11:21 36.7 C 69 14 113/66 97 07/18/23 07:44 36.4 C L 68 14 106/55 L 98 07/18/23 07:19 64 07/18/23 04:20 36.8 C 63 20 110/64 98 07/18/23 02:00 94 O2 Del Method O2 Del Method 07/18/23 11:21 Room Air 07/18/23 07:44 Room Air 07/18/23 07:19 07/18/23 04:20 Room Air 07/18/23 02:00 Room Air Laboratory Results Coagulation 07/18/23 Range/Units 02:49 PT 17.7 H (9.0-12.0) Seconds APTT 58 H (21-31) Seconds CBC 07/18/23 07/18/23 07/18/23 Range/Units 02:49 06:12 12:45 WBC 7.92 (4.8-10.8) K/ul RBC 3.66 L (4.20-5.40) M/uL Hgb 10.5 L 10.3 L 10.7 L (12.0-16.0) g/dl Hct 32.1 L 31.8 L 32.5 L (37.0-47.0) % Plt Count 259 (130-400) K/uL Neut # (Auto) 5.09 (1.40-6.50) K/uL Lymph # (Auto) 1.67 (1.20-3.40) K/uL Haskell # (Auto) 0.94 H (0.11-0.59) K/uL Eos # (Auto) 0.07 (0.00-0.50) K/uL Baso # (Auto) 0.04 (0.00-0.20) K/uL Comprehensive Metabolic Panel 07/18/23 Range/Units 02:49 Sodium 135 L (136-145) mmol/L Potassium 3.6 (3.5-5.1) mmol/L Chloride 102 (98-107) mmol/L Carbon Dioxide 27 (21-32) mmol/L BUN 22 (6-23) mg/dl Creatinine 0.87 (0.6-1.2) mg/dl Glucose 152 H (70-99(Fasting)) mg/dl Calcium 9.7 (8.6-10.3) mg/dl Intake and Output 07/17/23 07/18/23 07/18/23 22:59 06:59 14:59 Intake Total 273.667 / 1467.334 713.667 / 1467.334 Balance 273.667 / 1467.334 713.667 / 1467.334 Intake: IV 273.667 / 387.334 113.667 / 387.334 Heparin Sodium/Dextrose 25,000 273.667 / 387.334 113.667 / 387.334 units In 500 ml @ 1,000 UNITS/ HR 20 mls/hr IV .Q24H [facility] Rx#: [id number] Oral 600 / 1080 Other: Weight 60 kg Weight Measurement Method Built in [facility] Diagnostic Findings Current Inpatient Medications Acetaminophen (Acetaminophen 325 Mg Tab) 650 mg PO Q4H PRN PRN Reason: Pain or Fever Stop: 08/12/23 18:03 Last Admin: 07/18/23 13:52 Dose: 650 mg Al Hydrox/Mg Hydrox/Simethicone (Aluminum/Magnesium Susp 30 Ml Udc) 15 ml PO Q4H PRN PRN Reason: Dyspepsia Stop: 08/12/23 18:03 Aspirin (Aspirin 81 Mg Ectab) 81 mg PO DAILY [facility] Stop: 08/13/23 08:59 Dextrose (Dextrose 50% 50 Ml Syringe) 25 - 50 ml IV UD PRN; Protocol PRN Reason: Hypoglycemia Protocol Stop: 08/12/23 22:43 Digoxin (Digoxin 0.125 Mg Tab) 0.125 mg PO DAILY@1600 [facility] Stop: 08/13/23 15:59 Last Admin: 07/17/23 16:10 Dose: 0.125 mg Fluticasone Propionate (Fluticasone Propionate Na Spr 16 Gm Btl) 1 sprays NA HS PRN PRN Reason: nasal allergies Stop: 08/12/23 22:41 Furosemide (Furosemide 20 Mg Tab) 20 mg PO Q48H [facility] Stop: 08/14/23 08:59 Last Admin: 07/17/23 08:44 Dose: 20 mg Furosemide (Furosemide 40 Mg Tab) 40 mg PO Q48H [facility] Stop: 08/13/23 08:59 Last Admin: 07/18/23 09:00 Dose: 40 mg Glucagon (Glucagon For Inj 1 Mg Vial) 1 mg SQ UD PRN; Protocol PRN Reason: Hypoglycemia Protocol Stop: 08/12/23 22:43 Glucose (Glucose 40% Gel 15 Gm Tube) 15 - 30 gm PO UD PRN; Protocol PRN Reason: Hypoglycemia Protocol Stop: 08/12/23 22:43 Glucose (Glucose 10 Tab/Tube) 4 - 8 tab PO UD PRN; Protocol PRN Reason: Hypoglycemia Treatment Stop: 08/12/23 22:43 Heparin Sodium/Dextrose (Heparin Sodium/Dextrose) 25,000 units in 500 mls @ 0 mls/hr IV .Q0M ARACELI; Protocol Stop: 08/12/23 19:29 Last Titration: 07/18/23 02:12 Dose: 0 units/hr, 0 mls/hr Insulin Aspart (Insulin Aspart Per Unit Charge) 0 units SC ACHS [facility] Stop: 08/13/23 07:29 Last Admin: 07/18/23 13:25 Dose: 5 units Insulin Glargine (Lantus Per Unit Charge) 15 units SQ DAILY [facility] Stop: 08/13/23 08:59 Last Admin: 07/18/23 08:55 Dose: 15 units Magnesium Hydroxide (Magnesium Hydroxide Susp 30 Ml Udc) 30 ml PO Q12H PRN PRN Reason: Constipation Stop: 08/12/23 18:03 Metoprolol Succinate (Metoprolol Succ 50mg Ext Rel Tab) 50 mg PO BID ARACELI Stop: 08/13/23 20:59 Last Admin: 07/18/23 09:02 Dose: 50 mg Miscellaneous (Carbohydrates For Hypoglycemia ) 15 - 30 gm PO UD PRN PRN Reason: Hypoglycemia Protocol Stop: 08/12/23 22:43 Miscellaneous Information (Pharmacy Glycemic Mgmt Consult) 1 each N/A UD PRN PRN Reason: Consult Stop: 08/12/23 22:43 Nitroglycerin (Nitroglycerin Sl 0.4 Mg/Tab Tab) 0.4 mg SL Q5M PRN PRN Reason: Chest Pain Stop: 08/12/23 22:41 Ondansetron HCl (Ondansetron Inj 2 Mg/Ml 2 Ml Vial) 4 mg IV Q6H PRN PRN Reason: Nausea Stop: 08/12/23 18:03 Oxybutynin Chloride (Oxybutynin Chloride Xl 5 Mg Tabcr) 5 mg PO DAILY [facility] Stop: 08/13/23 08:59 Last Admin: 07/18/23 09:02 Dose: 5 mg Oxycodone HCl (Oxycodone Hcl Ir 5 Mg Tab (Immediate Release)) 5 mg PO Q6H PRN PRN Reason: Pain Stop: 07/27/23 19:59 Last Admin: 07/15/23 04:41 Dose: 5 mg Polyethylene Glycol (Polyethylene (Miralax) 17 Gm Pack) 17 gm PO DAILY PRN PRN Reason: Constipation Stop: 08/12/23 18:03 Rosuvastatin Calcium (Rosuvastatin Calcium 5 Mg Tab) 5 mg PO DAILY [facility] Stop: 08/13/23 08:59 Last Admin: 07/18/23 09:00 Dose: 5 mg Sertraline HCl (Sertraline Hcl 50 Mg Tablet) 50 mg PO QAM [facility] Stop: 08/13/23 08:59 Last Admin: 07/18/23 09:02 Dose: 50 mg Vitamin D (Cholecalciferol 25 Mcg (1000 Units) Tab) 50 mcg PO QAM [facility] Stop: 08/13/23 08:59 Last Admin: 07/18/23 09:00 Dose: 50 mcg Warfarin Sodium (Warfarin Sod 3 Mg Tab) 3 mg PO DAILY@1600 [facility] Stop: 08/17/23 15:59 Laboratory Results WBC 7.92 K/ul (4.8-10.8) 07/18/23 02:49 RBC 3.66 M/uL (4.20-5.40) L 07/18/23 02:49 Hgb 10.7 g/dl (12.0-16.0) L 07/18/23 12:45 Hct 32.5 % (37.0-47.0) L 07/18/23 12:45 MCV 87.7 fL (80.0-100.0) 07/18/23 02:49 MCH 28.7 pg (25.0-34.0) 07/18/23 02:49 MCHC 32.7 g/dL (32.0-36.0) 07/18/23 02:49 RDW Std Deviation 50.6 fL (36.4-46.3) H 07/18/23 02:49 RDW Coeff of Tammi 16.0 % (11.5-14.5) H 07/18/23 02:49 Plt Count 259 K/uL (130-400) 07/18/23 02:49 MPV 10.8 fL (9.4-12.4) 07/18/23 02:49 Immature Gran % (Auto) 1.4 % 07/18/23 02:49 Neut % (Auto) 64.2 % 07/18/23 02:49 Lymph % (Auto) 21.1 % 07/18/23 02:49 Haskell % (Auto) 11.9 % 07/18/23 02:49 Eos % (Auto) 0.9 % 07/18/23 02:49 Baso % (Auto) 0.5 % 07/18/23 02:49 Neut # (Auto) 5.09 K/uL (1.40-6.50) 07/18/23 02:49 Lymph # (Auto) 1.67 K/uL (1.20-3.40) 07/18/23 02:49 Haskell # (Auto) 0.94 K/uL (0.11-0.59) H 07/18/23 02:49 Eos # (Auto) 0.07 K/uL (0.00-0.50) 07/18/23 02:49 Baso # (Auto) 0.04 K/uL (0.00-0.20) 07/18/23 02:49 Immature Gran # (Auto) 0.11 K/uL (0.01-0.20) 07/18/23 02:49 PT 17.7 Seconds (9.0-12.0) H 07/18/23 02:49 INR 1.7 (0.9-1.1) H 07/18/23 02:49 APTT 58 Seconds (21-31) H 07/18/23 02:49 PTT Ratio 2.2 07/18/23 02:49 Heparin Anti-Xa, Unfract 0.21 IU/ml (0.3-0.7) L 07/18/23 02:49 Sodium 135 mmol/L (136-145) L 07/18/23 02:49 Potassium 3.6 mmol/L (3.5-5.1) 07/18/23 02:49 Chloride 102 mmol/L (98-107) 07/18/23 02:49 Carbon Dioxide 27 mmol/L (21-32) 07/18/23 02:49 Anion Gap 6 (3-11) 07/18/23 02:49 BUN 22 mg/dl (6-23) 07/18/23 02:49 Creatinine 0.87 mg/dl (0.6-1.2) 07/18/23 02:49 Est Cr Clr Drug Dosing 42.8 ml/min 07/18/23 02:49 Est GFR ( Amer) 74.5 ml/min 07/18/23 02:49 Est GFR (Non-Af Amer) 64.3 ml/min 07/18/23 02:49 BUN/Creatinine Ratio 25.3 (10-20) H 07/18/23 02:49 Glucose 152 mg/dl (70-99(Fasting)) H 07/18/23 02:49 POC Glucose 125 mg/dl (70-99) H 07/18/23 12:26 Estimat Average Glucose 197 mg/dl 07/14/23 02:07 Hemoglobin A1c 8.5 % (4.5-5.6) H 07/14/23 02:07 Calcium 9.7 mg/dl (8.6-10.3) 07/18/23 02:49 Phosphorus 3.4 mg/dl (2.5-4.9) 07/14/23 02:07 Magnesium 1.9 mg/dl (1.7-2.4) 07/15/23 05:41 Total Bilirubin 0.9 mg/dl (0.2-1.0) 07/13/23 15:50 AST 21 U/L (13-39) 07/13/23 15:50 ALT 12 U/L (7-52) 07/13/23 15:50 Alkaline Phosphatase 63 U/L (34-104) 07/13/23 15:50 Total Protein 7.9 gm/dl (6.0-8.3) 07/13/23 15:50 Albumin 4.2 gm/dl (3.4-5.0) 07/13/23 15:50 Globulin 3.7 gm/dl (2.5-4.0) 07/13/23 15:50 Albumin/Globulin Ratio 1.1 (0.9-2) 07/13/23 15:50 Blood Type A Positive 07/18/23 02:49 Antibody Screen NEGATIVE 07/18/23 02:[address] 07/13/23 15:09 CT cervical spine wo con CLINICAL HISTORY: 77 years-old Female with Fall, anticoagulated, trauma. Acute neck pain status post fall COMPARISON: Head CT of same day, CTA neck 08/13/2079 TECHNIQUE: Multiple axial CT images of the cervical spine were obtained without contrast. A dose lowering technique was utilized adhering to the principles of ALARA. FINDINGS: Multilevel facet arthrosis is prominently moderate. Multilevel intervertebral disc space narrowing, moderate to severe C4-C5. Posterior disc osteophyte complex formations most pronounced at C4-C5 and C6-C7. No acute fracture or subluxation identified. The cervical soft tissues appear unremarkable. Subcentimeter hypodense left- sided thyroid nodules. Atherosclerosis of the carotid bulbs. The visualized lung apices appear clear. IMPRESSION: No acute cervical spine fracture or subluxation. ACT 112: Negative or not required by law. The above report was generated using voice recognition software. It may contain grammatical, syntax or spelling errors. Electronically signed by: Rojelio Griggs M.D. 07/13/2023 5:[address] 07/13/23 15:09 CT SCAN OF THE CHEST, ABDOMEN, AND PELVIS WITH IV CONTRAST CLINICAL HISTORY: Trauma. Fall. COMPARISON STUDY: Chest x-ray dated 06/09/2022. Chest CT dated 10/09/2012. Abdominal CT dated 06/09/2022. TECHNIQUE: Following the IV administration of 93 of Optiray 320, CT scan of the chest, abdomen, and pelvis was performed from the thoracic inlet to the proximal femora. Images are reviewed in the axial, sagittal, and coronal planes. IV contrast was administered without complication. A dose lowering technique was utilized adhering to the principles of ALARA. FINDINGS: CHEST: Thyroid: The right lobe is atrophic versus surgically absent. The left lobe is mildly enlarged and heterogeneous. Thoracic aorta: Postsurgical changes noted involving the aortic root. There is atherosclerotic calcification of the thoracic aorta. The thoracic aorta is normal in caliber and demonstrates standard 3-vessel arch anatomy. No dissection is seen. Pulmonary vasculature: The pulmonary trunk is normal in caliber. There are no filling defects identified in the central pulmonary vessels to indicate pulmonary embolus. Note that this examination was not protocoled for evaluation of the pulmonary arteries. Heart: A pacemaker is present in the left chest wall. The patient is status post midline sternotomy and cardiac valve surgery. The heart is normal in size and without pericardial effusion. The coronary arteries are densely calcified. Lungs and pleural spaces: Evaluation of the lung parenchyma is moderately degraded by motion artifact. There is no airspace consolidation, pleural effusion, or pneumothorax. Scarring/atelectasis is noted at both lung bases. The trachea and central airways are clear. There are scattered calcified granulomas. Mediastinum: There is no mediastinal hematoma or lymphadenopathy. April: Clear. Axillae: There is no axillary lymphadenopathy. Bony thorax: The skeletal structures are osteopenic. The bony thorax appears intact. There is a mild chronic superior compression deformity of T8. No lytic or blastic lesions are identified. ABDOMEN AND PELVIS: Liver: The contrast-enhanced liver is cirrhotic in morphology and heterogeneous in attenuation. There is hypertrophy of the left lobe and nodularity of the hepatic surface contour. There is no intrahepatic biliary ductal dilatation. The hepatic veins and portal veins are patent. Gallbladder: Surgically absent noting clips in the gallbladder fossa. Spleen: Normal in size and attenuation. Pancreas: Unremarkable. Adrenal glands: Unremarkable. Kidneys: The contrast enhanced kidneys are normal in size and without hydronephrosis. The kidneys enhance symmetrically. Abdominal vasculature: The abdominal aorta is normal in course and caliber noting moderate atherosclerotic calcification. Bowel: There is mild colonic diverticulosis without CT evidence of acute diverticulitis. No bowel obstruction is seen. The appendix is not visualized. Peritoneum: There is no intraperitoneal free air or abdominal ascites. Lymphadenopathy: None. Pelvic viscera: The bladder is distended but otherwise normal in appearance. The uterus is surgically absent. No adnexal lesion is seen. Surgical clips are noted in the right groin. Skeletal structures: The skeletal structures are osteopenic. The lumbosacral spine, bony pelvis, and proximal femora appear intact. There is lumbosacral spondylosis. No lytic or blastic lesions are seen. Soft tissues: There is soft tissue contusion/edema with a subcutaneous hematoma seen in the left upper thigh overlying the greater trochanter of the left femur. This is best seen on axial image #330 and measures 6.8 x 6.1 x 3.2 cm. Small foci of active extravasation are seen inferiorly on images #343 # and 359. IMPRESSION: 1. There is no acute posttraumatic intrathoracic abnormality. 2. There is no airspace consolidation, pleural effusion, or pneumothorax. 3. There is no evidence of solid organ injury in the abdomen or pelvis. 4. A subcutaneous soft tissue contusion with hematoma is seen in the left upper thigh with foci of active extravasation. 5. Cardiomegaly. 6. Cirrhotic liver morphology. 7. Additional findings as above. ACT 112: Negative or not required by law. Electronically signed by: Madhu Norwood M.D. 07/13/2023 5:01 PM Hand X-Ray 07/13/23 15:09 LEFT HAND 3 VIEWS CLINICAL HISTORY: Fall. Left hand injury. FINDINGS: 3 views of the left hand are obtained. No prior studies are available for comparison at the time of dictation. The skeletal structures are osteopenic. No fracture is seen. Minimal osteoarthritic change is noted throughout the wrist and hand. No erosive disease is seen. The overlying soft tissues are within normal limits. IMPRESSION: No acute bony abnormality is identified. Electronically signed by: Madhu Norwood M.D. 07/13/2023 3:[address] 07/13/23 15:09 CT SCAN OF THE BRAIN WITHOUT IV CONTRAST CLINICAL HISTORY: Trauma. Fall. COMPARISON STUDY: CT of the brain dated 06/09/2022. TECHNIQUE: Unenhanced axial CT scan of the brain is performed from the vertex to the skull base. A dose lowering technique was utilized adhering to the principles of ALARA. CT DOSE: 2072.88 mGy.cm FINDINGS: Brain parenchyma: There is age-related involutional change noting moderate subcortical and periventricular microangiopathic disease. There is no hemorrhage, mass effect, or evidence of acute territorial ischemia by CT criteria. Mineralization is noted in the basal ganglia. Mercado-white matter differentiation is preserved. No extra-axial fluid collection is seen. Ventricles, sulci, cisterns: Prominent secondary to involutional change. Intracranial vasculature: There is atherosclerotic calcification of the cavernous carotid arteries. Calvarium: The skeletal structures are osteopenic. There is no depressed calvarial fracture. Sinuses and mastoids: The visualized paranasal sinuses are clear. The mastoid air cells are well pneumatized. Orbits: The bony orbits are grossly intact. IMPRESSION: There is no hemorrhage, mass effect, or evidence of acute territorial ischemia by CT criteria. ACT 112: Negative or not required by law. Electronically signed by: Madhu Norwood M.D. 07/13/2023 4:48 PM Femur X-Ray 07/13/23 15:10 LEFT FEMUR 3 VIEWS CLINICAL HISTORY: Fall. Left leg injury. FINDINGS: AP, frog-leg, and lateral views of the left femur are obtained. No prior studies are available for comparison at the time of dictation. The skeletal structures are osteopenic. There is no radiographic evidence of acute fracture involving the left femur or the visualized left hemipelvis. The joint space of the left hip is maintained. The left knee joint is grossly preserved. There is degenerative sclerosis of the left sacroiliac joint. Soft tissue edema overlies left proximal femur. Surgical clips are present in the upper thigh bilaterally. There is atherosclerotic calcification of the left femoral artery. IMPRESSION: 1. There is no radiographic evidence of left femoral fracture. 2. Soft tissue edema is noted in the left upper thigh. Electronically signed by: Madhu Norwood M.D. 07/13/2023 3:56 PM Abdomen/Pelvis CT 07/18/23 02:12 Exam(s): CT ABDOMEN + PELVIS Without Contrast EXAM: CT Abdomen and Pelvis Without Intravenous Contrast CLINICAL HISTORY: Reason for exam: worsening back pain, heparin. TECHNIQUE: Axial computed tomography images of the abdomen and pelvis without intravenous contrast. CTDI is 12.17 mGy and DLP is 1091.17 mGy-cm. Automated exposure control was utilized for the study. A dose lowering technique was utilized adhering to the principles of ALARA. COMPARISON: No relevant prior studies available. FINDINGS: Lung bases: Unremarkable. No mass. No consolidation. Pleural space: Small right pleural effusion. Heart: Mild cardiomegaly. ABDOMEN: Liver: There is slight lobulation of the liver outline which can be associated with cirrhosis. Gallbladder and bile ducts: cholecystectomy. No ductal dilation. Spleen: Unremarkable. No splenomegaly. Adrenals: Unremarkable. No mass. Kidneys and ureters: Unremarkable. No obstructing stones. No hydronephrosis. Stomach and bowel: Unremarkable. No obstruction. No mucosal thickening. PELVIS: Appendix: No findings to suggest acute appendicitis. Bladder: Unremarkable. No stones. Reproductive: Unremarkable as visualized. ABDOMEN and PELVIS: Intraperitoneal space: Small amount of free fluid seen in the pelvis. No free air. Bones/joints: No acute fracture. No dislocation. Severe L5/S1 degenerative disc disease. Mild Soft tissues: 7.4 cm subcutaneous tissue hematoma seen in the left lateral gluteal region. Vasculature: Unremarkable. No abdominal aortic aneurysm. Lymph nodes: Unremarkable. No enlarged lymph nodes. IMPRESSION: 1. Small right pleural effusion 2. Subcutaneous tissue hematoma in the left lateral gluteal region 3. Small amount of free fluid in the pelvis Electronically signed by: Anand Taylor MD 07/18/23 06:[address] 07/18/23 02:12 Exam(s): CT EXTREMITY LEFT LOWER Without Contrast EXAM: CT Left Lower Extremity Without Intravenous Contrast CLINICAL HISTORY: Reason for exam: worsening pain/hematoma. TECHNIQUE: Axial computed tomography images of the left lower extremity without intravenous contrast. CTDI is 12.17 mGy and DLP is 599.89 mGy-cm. Automated exposure control was utilized for the study. A dose lowering technique was utilized adhering to the principles of ALARA. COMPARISON: No relevant prior studies available. FINDINGS: Bones/joints: Unremarkable. No acute fracture. No dislocation. Soft tissues: There is a 7.4 x 6.8 x 3.7 cm echogenicity is hematoma seen in the left lateral gluteal region. IMPRESSION: Subcutaneous tissue hematoma in the left lateral gluteal region Electronically signed by: Anand Taylor MD 07/18/23 06:31 AM
[2023-07-18] MEDS: HEPARIN SODIUM/DEXTROSE 25,000 UNITS/500 ML BAG IV SCH (14:28)
[2023-07-18] MEDS ORDERED: WARFARIN SOD 3 MG TAB PO SCH (16:00)
--- NOTE | 2023-07-18 16:11 | Hospitalist Progress Note ---
Date of Service July 18, 2023 Assessment & Plan (1) Thigh hematoma: (2) CAD (coronary artery disease): (3) S/P AVR (aortic valve replacement): (4) S/P MVR (mitral valve replacement): (5) Subtherapeutic anticoagulation: (6) Atrial fibrillation: (7) Pacemaker: (8) Diabetes mellitus, new onset: Plan 77 year old female that presents to the ED s/p mechanical fall with L mid-thigh hematoma development. History of AVR/MVR and on Coumadin for anticoagulation; INR goal 2.5-3.5. At presentation - No leukocytosis, INR 1.6 which is subtherapeutic given her AVR/MVR. She is being managed for the following: Thigh hematoma: Left upper thigh, s/p mechanical fall Admitting Femur X-ray, C Sp CT and head CT negative Admitting imaging s/o left thigh hematoma Outlined hematoma with marker at presentation. Admitting INR 1.6 ISO AVR/MVR status. Subtherapeutic level. No signs of infection at the hematoma site. 07/16 evening, Pt had increased pain at hematoma site --> imaging Lt Hip CT and CTAP done --> no retroperitoneal hematoma/slight increase in left lat gluteal hematoma noted. Ortho made aware 07/17, plan to eval 07/18 d/w cardio 07/17, plan to c/w anticoagulation d/w patient, pt's son Vicente, pt's dtr Yun. Vicente and Pt agree w/ c/w anticoagulation and understand the risks and benefits. Hemoglobin has been stable, monitor closely. RN communicated to apply compression wrapping over the hematoma site. Anticoagulation so far: on heparin drip, Coumadin 3 mg on 07/14, 07/15 --> 5 mg on 07/16 --> c/w 3 md daily from 07/17 INR 1.7 today, labs in AM. CAD: S/P AVR/MVR: subtherapeutic anticoagulation: Pacemaker s/p TBS: Complex cardiac history that includes a mechanical AVR in 2002 which was red[place] [address] Manley. CABG x3 with Jorge to the LAD, R internal mammary artery anastomosed as a free graft to the RCA and a single saphenous vein graft to the diagonal coronary artery. Presentation INR 1.6. INR goal 2.5-3.5 cardiology maximinod, appreciate recs. Anticoagulation - see above. Closely monitor PT/INR and H&H. Atrial Fibrillation: Chronic. Underwent an ablation at [facility]. Takes Coumadin as listed above--> placed on Heparin gtt given history as outlined above. INR goal 2.5-3.5 Takes Digoxin and Metoprolol;continue Insulin dependent diabetes mellitus, Type 2: Chronic Takes degludec; continue ACHS SSI while inpatient f/u with diabetic clinic for continued management HLD: Chronic. Takes Rosuvastatin; continue Depression: Chronic. Takes Sertraline; continue Disposition: PCP: Dr. Garcia Code Status: Full Code VTE Prophylaxis: Heparin gtt, coumadin resumed 07/14. Pt's son Vicente chavez POA: [phone]. Time spent evaluating patient, direct bedside care, chart review, placing orders, interpretation of diagnostic studies, discussion with consultants, sharon ent, and family members, as well as other required patient management activities is _80___ minutes. Please note the above document was generated using voice recognition software. It may contain grammatical, syntax or spelling errors. Any formal questions or concerns about the content, text or information contained within the body of this dictation should be directly addressed to the undersigned for clarification. Admission and Anticipated Discharge Date Admission Date: July 13, 2023 Subjective Patient was seen and examined at bedside. Patient was lying in bed, on room air, NAD, resting comfortably. Overnight patient had increased pain in the left hip and low back area, there was concern of increase in hematoma size, CTAP and left femur CT done, no retroperitoneal hematoma noted, some minimal increase in the hematoma at the left lateral gluteal region noted per imaging. Patient reports pain fairly under control at bedside exam, reports eating okay and moving bowels okay, denies febrile illness. Discussed with orthopedics, who plans to evaluate the patient tomorrow. Discussed with cardiology over the phone, given risks of CVA ISO A- fib/mechanical heart valves, recommend heparin bridge and continuing Coumadin. After assessing the patient and discussion with the specialists, given phone call to patient's daughter Yun. Updated her the situation, and need/risks of anticoagulation was discussed. If Pt is not anticoagulated, patient would suff er from a stroke and if she is anticoagulated, patient might develop enlarging hematoma/blood loss. after about 10 minutes of detailed questioning and answers, patient's daughter appeared uncomfortable deciding on her own and wanted me to contact patient's son Vicente [[phone]]. I called her son Vicente over the phone who is also POA for the patient, explained about another 10 minutes discussing about the patient and discussing risks and benefit of anticoagulation. Vicente understands that if patient is not anticoagulated patient is at increased risks of stroke and also understands that if patient is anticoagulated she is at increased risks of expanding hematoma/blood loss. He agrees with the plan of continuing anticoagulation at this moment. Also patient was revisited during the day/reassessed and discussed the risks and benefit of anticoagulation in detail to which patient agreed to continue anticoagulation. Discussed with nursing at bedside during second reassessment of the patient, nursing advised to apply compression bandage over the hematoma site as much as possible. Physical Exam Physical Exam: GENERAL: Alert and oriented x3. NAD, on RA. HEENT: No pallor, no icterus. Pupils equal, round and reactive to light. Oral mucosa moist. NECK: No JVD, no neck masses. HEART: S1 and S2 heard. irregular rate and rhythm. No murmur, no gallop. RESPIRATORY SYSTEM: Normal AP diameter. No accessory muscle use. No wheezing, no crackles. ABDOMEN: Soft, bowel sounds present, nontender, no distention. CENTRAL NERVOUS SYSTEM: No facial droop. Speech is clear. Obeys simple commands. Moves extremities. EXTREMITIES: No edema, no erythema seen. Left upper thigh x lateral hem atoma/ecchymoses noted, + tender on exam/slightly englarged today, no Signs of infection. Results & Data Results & Data Vital Signs (Past 12 Hours) Vital Signs Temp Pulse Pulse Resp BP Pulse Ox O2 Del Method 07/18/23 15:38 37.2 C 72 14 105/60 95 Room Air 07/18/23 15:17 67 07/18/23 11:21 36.7 C 69 14 113/66 97 Room Air 07/18/23 07:44 36.4 C L 68 14 106/55 L 98 Room Air 07/18/23 07:19 64 07/18/23 04:20 36.8 C 63 20 110/64 98 Room Air (2) CAD (coronary artery disease) Coronary Disease-Associated Artery/Lesion type: red devil artery [place] vs. transplanted heart: red devil heart Associated angina: without angina Qualified Code(s): I25.10 - Atherosclerotic heart disease of red devil coronary artery without angina pectoris
[2023-07-18] MEDS: WARFARIN SOD 3 MG TAB PO SCH (16:14)
[2023-07-18 20:52] LABS: ANTI-Xa, UFH(UnfractionatedHep 0.26 IU/ml (0.3-0.7)
[2023-07-18 21:18] LABS: Hematocrit (blood only) 30.6 % (37.0-47.0)
--- NOTE | 2023-07-18 21:38 | Orthopedic Consultation ---
Date of Service July 18, 2023 Assessment & Plan (1) Traumatic hematoma of left thigh: 77-year-old female on chronic anticoagulation for significant cardiac disease with a left hip/thigh hematoma. This is really lateral to the hip joint. On CT scan it may be slightly bigger. It certainly looks a lot worse as the bleeding is coming more to the surface. It feels fairly firm and unlikely that we could aspirate this and get much out but it is think it is worth a try. She got multiple medical comorbidities and best to us to try and stay out of the operating room. Plan: We discussed treatment options. At this point I am going to try to aspirate this tomorrow on rounds. Will let likely put a hip spica dressing on here and see if we can put some more compression on it. Will get a try and avoid any surgery. Certainly should be high risk and her risk of recurrent bleeds is high considering her need for anticoagulation. Will try to aspirate this tomorrow and put a better compressive dressing on. There is no signs of clinical infection at this point. I do not think this is rapidly enlarging. It looks worse because the bleedings come to the surface. (2) Thigh hematoma: (3) Anticoagulated: History of Present Illness Reason for Consultation: . Left hip hematoma. Requesting Physician: . Attending Physician: Gely Watson MD . Patient is 77-year-old female with multiple medical comorbidities including a significant cardiac disease on chronic anticoagulation sustained a fall several days ago. She was initially seen by [place] [facility] and treated conservatively. We have been asked to see her again due to which felt like a expanding hematoma. She reports some pain but intermittent. No real other complaints. Allergies Allergy/AdvReac Type Severity Reaction Status Date / Time lidocaine Allergy Intermediate Rash/hives Verified 03/30/23 10:11 [From Aspercreme (lidocaine)] with cream Sulfa (Sulfonamide Allergy Intermediate Rash, hives Verified 03/30/23 10:11 Antibiotics) latex Allergy Unknown Wheezing Verified 03/30/23 10:11 levothyroxine AdvReac Intermediate Tachycardia Verified 03/30/23 10:11 Home Medications Medication Instructions Recorded Confirmed Type furosemide 20 mg tablet 20 mg PO UD 05/27/18 07/13/23 History nitroglycerin 0.4 mg sublingual 0.4 mg sublingual DIRECTED PRN 05/27/18 07/13/23 History tablet (Nitrostat) Chest Pain sertraline 50 mg tablet 50 mg PO QAM 04/05/20 07/13/23 History digoxin 125 mcg (0.125 mg) tablet 125 mcg PO QAM 08/14/20 07/13/23 History cholecalciferol (vitamin D3) 25 50 mcg PO QAM 03/08/21 07/13/23 History mcg (1,000 unit) tablet (Vitamin D3) amoxicillin 500 mg capsule 2,000 mg PO ONCE PRN Prophylaxis 06/09/22 07/13/23 History aspirin 81 mg tablet,delayed 81 mg PO DAILY 06/09/22 07/13/23 History release fluticasone propionate 50 1 spray intranasal HS PRN otjer 06/09/22 07/13/23 History mcg/actuation nasal spray,suspension rosuvastatin 5 mg tablet 5 mg PO DAILY 06/09/22 07/13/23 History warfarin 1 mg tablet 2 - 3 mg PO DAILY 06/09/22 07/13/23 History blood-glucose meter (OneTouch 08/13/22 03/30/23 History Verio Flex Meter) empagliflozin 25 mg tablet 25 mg PO QAM 08/13/22 07/13/23 History (Jardiance) pen needle, diabetic 32 gauge x #100 ea 08/14/22 03/30/23 Rx 1/4" (Comfort EZ Pen [place]ancock) insulin degludec 100 unit/mL (3 26 unit subcut DAILY 11/17/22 07/13/23 History mL) subcutaneous pen (Tresiba FlexTouch U-100 insulin) dicyclomine 10 mg capsule 20 mg PO QID PRN Abdominal Pain 07/13/23 07/14/23 History metoprolol succinate 50 mg 50 mg PO BID 07/14/23 07/14/23 History tablet,extended release 24 hr potassium chloride 10 mEq 10 meq PO DAILY 07/14/23 07/14/23 History tablet,extended release Past Med/Surg History Problem List Anticoagulated (Acute) Traumatic hematoma of left thigh (Acute) Fall (Acute) Thigh hematoma Mixed incontinence Vitamin D deficiency Loss of protective sensation of skin of foot Diabetic peripheral neuropathy associated with type 2 diabetes mellitus Type 2 diabetes mellitus Dizziness Gastroenteritis (Acute) Abdominal pain (Acute) Elevated troponin I level (Acute) Dyspnea (Acute) Acute hyperglycemia (Acute) Fatigue (Acute) Subtherapeutic anticoagulation (Acute) Viral URI Pacemaker placed 04/2020; tachy-lindy syndrome; [employer]; last checked 1 mo ago Diabetes mellitus, new onset Atrial fibrillation follows with Dr. Almeida; h/o mult cardioversions; on warfarin History of cholecystectomy (Chronic) DVT prophylaxis Atrial flutter pt with atypical atrial flutter symptomatic with RVR. Agree with DCCV tomorrow-would continue BB and Tikosyn. If she continues to have recurrent frequent episodes then recommend ppm and AVN ablation. Full EP Consult dictated Tachycardia-bradycardia syndrome IBS (irritable bowel syndrome) (Chronic) History of bilateral breast reduction surgery (Chronic) History of partial thyroidectomy (Chronic) Paroxysmal atrial flutter (Chronic) CAD (coronary artery disease) (Chronic) Rheumatic heart disease, on March 04, 2002 patient underwent aortic valve replacement and mitral valve replacement along with CABG x3 with a KIRK to the LAD, right internal mammary artery anastomosis as a free graft to the RCA and a single saphenous vein graft to the diagonal coronary artery and radiofrequency ablation of atrial fibrillation pathways at [facility]. 01/2011 admitted to [facility] secondary to symptomatically A. fib flutter which patient underwent DCCV. Sotalol was started but stopped due to intolerance secondary to nausea and bradycardia. July 2011 Tikosyn loading and successful repeat DCCV. 01/08/12 underwent cardiac catheterization at [facility] and remained on warfarin. Noted to have single-vessel disease 70% mid LAD, 2 of the 3 bypasses were patent. There was obstruction of the SVG to diagonal however, the [place] diagonal had no significant obstruction. 12/24/12 hospitalized at [facility] and underwent redo of mechanical MVR By Dr. Manley. Postop day flutter noted. Tikosyn was discontinued and sent home on amiodarone and metoprolol. 05/3015 admitted to [facility] secondary to symptomatically flutter and tikosyn re-initiated. 11/2015 admitted to [facility] secondary to recurrent symptomatic paroxysmal atrial flutter with RVR, status post DCCV. Anticoagulation goal of INR 2.5 to 3.5 (Chronic) CKD (chronic kidney disease), stage II (Chronic) pt denies. HLD (hyperlipidemia) (Chronic) Liver cirrhosis secondary to BROWNE (Chronic) Hypothyroidism (Chronic) no medication S/P AVR (aortic valve replacement) (Chronic) "Mechanical 2002 On 05/25/15 15:41 Mel Zayra Quevedo wrote "Mechanical 2002" S/P MVR (mitral valve replacement) (Chronic) "Mechanical 2002" plus a revision 2012 S/P NELLY (total abdominal hysterectomy) (Chronic) LSO S/P cholecystectomy (Chronic) H/O esophagogastroduodenoscopy (Chronic) Hx of appendectomy (Chronic) Medical History History of transesophageal echocardiography (ASHLEY) Osteoarthritis Anxiety Depression On anticoagulant therapy History of cardioversion multiple Atrial flutter HTN (hypertension) Surgical History History of cardiac cath 2002 & ~2013 [facility] History of bilateral tubal ligation History of cataract surgery bilateral History of tonsillectomy History of colonoscopy Hx of appendectomy History of cholecystectomy Hx of CABG x3 vessels (2002) at [facility] Family History Mother Colorectal cancer Father FHx: bladder cancer Other No family history of adverse response to anesthesia Social History Smoking Status: Never smoker Second Hand Exposure: No; Do You Dip or Chew Tobacco: No; Hx Alcohol Use: No Hx Substance Use: No Preferred Language: Sami Communication Ability: Effective Store Leader Required: No Beliefs That Will Affect Care: None Current Living Situation: Alone Current Living Situation Comment: [facility] (Independent living) Other Information That Helps Us Care for You: No Feels Safe at Home: Yes Safety Concerns: Feels Safe At This Time Assistive Devices: Lift Chair and Walker Review of Systems All systems reviewed & are unremarkable except as noted in HPI & below. Physical Exam . Physical examination was a pleasant elderly female. She looks healthier than her stated history. Examination left hip and leg reveals apparently firmly hematoma of the lateral and posterior lateral buttock area and upper thigh. She has an Marcus bandage distally. Really not encompassing the hematoma. Her thigh is soft and supple. She is neurologically intact. Mild pain with hip motion. Results & Data Results & Data Laboratory Results . Diagnostic Findings . I reviewed all of her x-rays and CT scan. Does show significant hematoma in the subcutaneous tissues. It does look like it is in the deeper subcu tissues. It may be a slightly bigger than it was several days ago. Not at marked change. PG Care Time/CCT Total # of Minutes Spent Total Time Spent with Patient: Total time spent is greater than 50% in coordination of care (as documented) at patient's floor/unit and/or counseling patient: Coding Level of Care Code 65496 IN/OBS CONSULT LVL 3,45M Diagnoses Traumatic hematoma of left thigh S70.12XA Thigh hematoma S70.10XA Anticoagulated Z79.01
[2023-07-19 03:49] LABS: BUN Creatinine Ratio 30.3 (10-20); Calcium 9.8 mg/dl (8.6-10.3); Creatinine Clr Calc Pharmacy 56.5 ml/min; Est GFR (African American) 98.8 ml/min; Est GFR (Non-African American) 85.2 ml/min; Magnesium 1.9 mg/dl (1.7-2.4); Phosphorus 3.5 mg/dl (2.5-4.9); Potassium 3.6 mmol/L (3.5-5.1)
[2023-07-19 04:07] LABS: Hematocrit (blood only) 33.6 % (37.0-47.0); Mean Corpuscular Hemoglobin 28.6 pg (25.0-34.0); Mean Corpuscular Hgb Conc 32.7 g/dL (32.0-36.0); Mean Corpuscular Volume 87.3 fL (80.0-100.0); Mean Platelet Volume 10.7 fL (9.4-12.4); Platelet Count 256 K/uL (130-400); RDW Coefficient of Variation 16.4 % (11.5-14.5); RDW Standard Deviation 50.5 fL (36.4-46.3); Red Blood Count 3.85 M/uL (4.20-5.40); White Blood Count 8.29 K/ul (4.8-10.8)
[2023-07-19 04:14] LABS: ANTI-Xa, UFH(UnfractionatedHep 0.42 IU/ml (0.3-0.7); INR 2.3 (0.9-1.1); Prothrombin Time 23.3 Seconds (9.0-12.0)
[2023-07-19] MEDS: POTASSIUM CHLORIDE CRTAB 20 MEQ TABCR PO STA (09:04)
[2023-07-19 10:03] LABS: ANTI-Xa, UFH(UnfractionatedHep 0.44 IU/ml (0.3-0.7)
[2023-07-19 10:06] LABS: INR 2.5 (0.9-1.1); Prothrombin Time 24.9 Seconds (9.0-12.0)
--- NOTE | 2023-07-19 10:58 | Surgery Progress Note ---
Date of Service July 19, 2023 Assessment & Plan (1) Traumatic hematoma of left thigh: Plan: 77-year-old female on chronic anticoagulation is status post a fall with a left hematoma hip hematoma. We attempted to aspirate that today and only got about 5 cc of bloody fluid. It was strictly blood but very thick. There is no signs of infection. This appears stable. Hemoglobin hematocrit are stable. Plan: We attempted to aspirate the hip hematoma today got only got a small amount of blood. My suspicion is the rest of this is all coagulated. This is them that will resolve over time. I do not think this is getting significantly larger. We will apply and apply a better compressive dressing in a hip spica type fashion the which will include the hematoma area. The previous dressing did not include the hematoma at all. From an orthopedic standpoint she is okay for discharge anytime medically stable. I do not think this warrants surgical intervention at this time and unlikely will warrant that. This should resolve over time. As far as anticoagulation will leave that up to the primary service. Certainly want to be careful not to over anticoagulate her. Any orthopedic questions can be directed at [phone]. I would leave this hip spica Marcus bandage on for 2 to 3 days and then can remove it. Procedure patient's left hip area was prepped with alcohol. I attempted to aspirate the hip hematoma. I got about 5 cc of bloody fluid. A compressive dressing was applied. The patient tolerated procedure well no complications (2) Anticoagulated: (3) Thigh hematoma: Admission and Anticipated Discharge Date Admission Date: July 13, 2023 Subjective 77-year-old female with multiple medical comorbidities including significant cardiac disease on chronic anticoagulation admitted with a left hip hematoma status post a fall. There is no fractures. Her pain days, waxes and wanes. Certainly not severe. No other complaints. Physical Exam Physical Exam: Physical examination is a pleasant frail elderly female. She is lying in bed looks comfortable. Examination left hip and leg reveals a significant swelling and bruising of the entire left hip and upper thigh area. Got a fairly tense hematoma. No signs of cellulitis or infection. Minimal pain with hip motion. Results & Data Vital Signs (Past 12 Hours) Vital Signs Temp Pulse Pulse Resp BP Pulse Ox Pulse Ox 07/19/23 07:59 65 115/56 L 07/19/23 07:47 36.6 C 63 14 95/57 L 98 07/19/23 07:02 73 07/19/23 03:54 36.7 C 59 L 20 102/62 95 07/19/23 02:00 95 07/19/23 00:00 81 07/18/23 23:40 36.7 C 70 20 100/60 97 O2 Del Method O2 Del Method 07/19/23 07:59 07/19/23 07:47 Room Air 07/19/23 07:02 07/19/23 03:54 Room Air 07/19/23 02:00 Room Air 07/19/23 00:00 07/18/23 23:40 Room Air Laboratory Results Hemoglobin is 11.0. Hematocrit 33.6. INR 2.5. PG Care Time/CCT Total # of Minutes Spent Total Time Spent with Patient: Total time spent is greater than 50% in coordination of care (as documented) at patient's floor/unit and/or counseling patient: Coding Level of Care Code 94690 SUB INP/OBS CARE 2/35MIN Diagnoses Traumatic hematoma of left thigh S70.12XA Anticoagulated Z79.01 Thigh hematoma S70.10XA
--- NOTE | 2023-07-19 13:50 | Progress Note ---
Date of Service July 19, 2023 Assessment & Plan Admission and Anticipated Discharge Date Admission Date: July 13, 2023 Subjective INR is therpeutic at 2.5 recommend stop heparin and continue with coumdain; hematoma is stable pt feels better; agree with a compression dressing. please re-consult as needed Results & Data Vital Signs (Past 12 Hours) Vital Signs Temp Pulse Pulse Resp BP Pulse Ox Pulse Ox 07/19/23 11:22 36.6 C 63 14 104/53 L 97 07/19/23 07:59 65 115/56 L 07/19/23 07:47 36.6 C 63 14 95/57 L 98 07/19/23 07:02 73 07/19/23 03:54 36.7 C 59 L 20 102/62 95 07/19/23 02:00 95 O2 Del Method O2 Del Method 07/19/23 11:22 Room Air 07/19/23 07:59 07/19/23 07:47 Room Air 07/19/23 07:02 07/19/23 03:54 Room Air 07/19/23 02:00 Room Air
--- NOTE | 2023-07-19 16:04 | Hospitalist Progress Note ---
Date of Service July 19, 2023 Assessment & Plan (1) Thigh hematoma: (2) CAD (coronary artery disease): (3) S/P AVR (aortic valve replacement): (4) S/P MVR (mitral valve replacement): (5) Subtherapeutic anticoagulation: (6) Atrial fibrillation: (7) Pacemaker: (8) Diabetes mellitus, new onset: Plan 77 year old female that presents to the ED s/p mechanical fall with L mid-thigh hematoma development. History of AVR/MVR and on Coumadin for anticoagulation; INR goal 2.5-3.5. At presentation - No leukocytosis, INR 1.6 which is subtherapeutic given her AVR/MVR. She is being managed for the following: Thigh hematoma: Left upper thigh, s/p mechanical fall Admitting Femur X-ray, C Sp CT and head CT negative Admitting imaging s/o left thigh hematoma Outlined hematoma with marker at presentation. Admitting INR 1.6 ISO AVR/MVR status. Subtherapeutic level. No signs of infection at the hematoma site. 07/16 evening, Pt had increased pain at hematoma site --> imaging Lt Hip CT and CTAP done --> no retroperitoneal hematoma/slight increase in left lat gluteal hematoma noted. Ortho evaled 07/18, Hip spica marcus bandage applied x leave for 2-3 days, then can take out. Cardio evaled, c/w anticoagulation, dc heparin drip. Hemoglobin has been stable, monitor closely. Anticoagulation so far: on heparin drip, Coumadin 3 mg on 07/14, 07/15 --> 5 mg on 07/16 --> c/w 3 mg daily from 07/17 INR 2.5 today, labs in AM. Heparin drip dc'd. CAD: S/P AVR/MVR: subtherapeutic anticoagulation: Pacemaker s/p TBS: Complex cardiac history that includes a mechanical AVR in 2002 which was red[place] [address] Manley. CABG x3 with Jorge to the LAD, R internal mammary artery anastomosed as a free graft to the RCA and a single saphenous vein graft to the diagonal coronary artery. Presentation INR 1.6. INR goal 2.5-3.5 cardiology evaled, appreciate recs. Anticoagulation - see above. Closely monitor PT/INR and H&H. Atrial Fibrillation: Chronic. Underwent an ablation at [facility]. Takes Coumadin as listed above--> placed on Heparin gtt given history as outlined above. INR goal 2.5-3.5 Takes Digoxin and Metoprolol;continue Insulin dependent diabetes mellitus, Type 2: Chronic Takes degludec; continue ACHS SSI while inpatient f/u with diabetic clinic for continued management HLD: Chronic. Takes Rosuvastatin; continue Depression: Chronic. Takes Sertraline; continue Disposition: PCP: Dr. Garcia Code Status: Full Code VTE Prophylaxis: Heparin gtt, coumadin resumed 07/14. Pt's son Vicente and POA: [phone]. Please note the above document was generated using voice recognition software. It may contain grammatical, syntax or spelling errors. Any formal questions or concerns about the content, text or information contained within the body of this dictation should be directly addressed to the undersigned for clarification. Admission and Anticipated Discharge Date Admission Date: July 13, 2023 Subjective Patient was seen and examined at bedside. Patient was lying in bed, on room air, NAD, resting comfortably. Hip spica Marcus bandage noted over left hip area. Patient reports feeling better, pain under control. Patient reports eating okay and moving bowels okay, offers no further complaints. Patient's son Vicente was present at bedside was also updated on plan of care. Answered all his question, he was agreeable to plan of care. Physical Exam Physical Exam: GENERAL: Alert and oriented x3. NAD, on RA. HEENT: No pallor, no icterus. Pupils equal, round and reactive to light. Oral mucosa moist. NECK: No JVD, no neck masses. HEART: S1 and S2 heard. irregular rate and rhythm. No murmur, no gallop. RESPIRATORY SYSTEM: Normal AP diameter. No accessory muscle use. No wheezing, no crackles. ABDOMEN: Soft, bowel sounds present, nontender, no distention. CENTRAL NERVOUS SYSTEM: No facial droop. Speech is clear. Obeys simple commands. Moves extremities. EXTREMITIES: No edema, no erythema seen. Left hip spica Marcus bandage noted. Results & Data Results & Data Vital Signs (Past 12 Hours) Vital Signs Temp Pulse Pulse Resp BP Pulse Ox O2 Del Method 07/19/23 15:49 36.7 C 70 15 104/64 96 Room Air 07/19/23 15:13 87 07/19/23 11:22 36.6 C 63 14 104/53 L 97 Room Air 07/19/23 07:59 65 115/56 L 07/19/23 07:47 36.6 C 63 14 95/57 L 98 Room Air 07/19/23 07:02 73 (2) CAD (coronary artery disease) Coronary Disease-Associated Artery/Lesion type: [place] artery [place] vs. transplanted heart: [place] heart Associated angina: without angina Qualified Code(s): I25.10 - Atherosclerotic heart disease of [place] coronary artery without angina pectoris
[2023-07-20 06:11] LABS: Hematocrit (blood only) 31.7 % (37.0-47.0); Hemoglobin 10.2 g/dl (12.0-16.0); Mean Corpuscular Hemoglobin 28.2 pg (25.0-34.0); Mean Corpuscular Hgb Conc 32.2 g/dL (32.0-36.0); Mean Corpuscular Volume 87.6 fL (80.0-100.0); Mean Platelet Volume 10.7 fL (9.4-12.4); Platelet Count 267 K/uL (130-400); RDW Coefficient of Variation 16.8 % (11.5-14.5); RDW Standard Deviation 51.8 fL (36.4-46.3); Red Blood Count 3.62 M/uL (4.20-5.40); White Blood Count 8.19 K/ul (4.8-10.8)
[2023-07-20 06:18] LABS: BUN Creatinine Ratio 28.6 (10-20); Calcium 9.8 mg/dl (8.6-10.3); Creatinine Clr Calc Pharmacy 53.2 ml/min; Est GFR (African American) 96.9 ml/min; Est GFR (Non-African American) 83.6 ml/min; Potassium 4.2 mmol/L (3.5-5.1)
[2023-07-20 07:05] LABS: ANTI-Xa, UFH(UnfractionatedHep < 0.10 IU/ml (0.3-0.7); INR 2.9 (0.9-1.1); Prothrombin Time 28.8 Seconds (9.0-12.0)
--- NOTE | 2023-07-20 14:52 | Hospitalist Progress Note ---
Date of Service July 20, 2023 Assessment & Plan (1) Thigh hematoma: (2) CAD (coronary artery disease): (3) S/P AVR (aortic valve replacement): (4) S/P MVR (mitral valve replacement): (5) Subtherapeutic anticoagulation: (6) Atrial fibrillation: (7) Pacemaker: (8) Diabetes mellitus, new onset: Plan 77 year old female that presents to the ED s/p mechanical fall with L mid-thigh hematoma development. History of AVR/MVR and on Coumadin for anticoagulation; INR goal 2.5-3.5. At presentation - No leukocytosis, INR 1.6 which is subtherapeutic given her AVR/MVR. She is being managed for the following: Thigh hematoma: Left upper thigh, s/p mechanical fall Admitting Femur X-ray, C Sp CT and head CT negative Admitting imaging s/o left thigh hematoma Outlined hematoma with marker at presentation. Admitting INR 1.6 ISO AVR/MVR status. Subtherapeutic level. No signs of infection at the hematoma site. 07/16 evening, Pt had increased pain at hematoma site --> imaging Lt Hip CT and CTAP done --> no retroperitoneal hematoma/slight increase in left lat gluteal hematoma noted. Ortho evaled 07/18, Hip spica marcus bandage applied x leave for 2-3 days, then can take out. Cardio evaled, c/w anticoagulation, dc heparin drip. Hemoglobin has been stable, monitor closely. Anticoagulation so far: s/p heparin bridge, Coumadin 3 mg on 07/14, 07/15 --> 5 mg on 07/16 --> c/w 3 mg daily from 07/17 INR 2.9 today, labs in AM. CAD: S/P AVR/MVR: subtherapeutic anticoagulation: Pacemaker s/p TBS: Complex cardiac history that includes a mechanical AVR in 2002 which was red[place] [address] Manley. CABG x3 with Jorge to the LAD, R internal mammary artery anastomosed as a free graft to the RCA and a single saphenous vein graft to the diagonal coronary artery. Presentation INR 1.6. INR goal 2.5-3.5 cardiology evaled, appreciate recs. Anticoagulation - see above. Closely monitor PT/INR and H&H. Atrial Fibrillation: Chronic. Underwent an ablation at [facility]. Takes Coumadin as listed above--> placed on Heparin gtt given history as outlined above. INR goal 2.5-3.5 Takes Digoxin and Metoprolol;continue Insulin dependent diabetes mellitus, Type 2: Chronic Takes degludec; continue ACHS SSI while inpatient f/u with diabetic clinic for continued management HLD: Chronic. Takes Rosuvastatin; continue Depression: Chronic. Takes Sertraline; continue Disposition: PCP: Dr. Garcia Code Status: Full Code VTE Prophylaxis: Heparin gtt, coumadin resumed 07/14. Pt's son Vicente and POA: [phone]. likely pt/ot re-eval and dc in next 1-2 days, d/w CM. Please note the above document was generated using voice recognition software. It may contain grammatical, syntax or spelling errors. Any formal questions or concerns about the content, text or information contained within the body of this dictation should be directly addressed to the undersigned for clarification. Admission and Anticipated Discharge Date Admission Date: July 13, 2023 Subjective Patient was seen and examined at bedside. Patient was lying in bed, on room air, NAD, resting comfortably. Hip spica Marcus bandage noted over left hip area. Patient reports feeling better, pain under control. Patient reports eating okay and moving bowels okay, offers no further complaints. Physical Exam Physical Exam: GENERAL: Alert and oriented x3. NAD, on RA. HEENT: No pallor, no icterus. Pupils equal, round and reactive to light. Oral mucosa moist. NECK: No JVD, no neck masses. HEART: S1 and S2 heard. irregular rate and rhythm. No murmur, no gallop. RESPIRATORY SYSTEM: Normal AP diameter. No accessory muscle use. No wheezing, no crackles. ABDOMEN: Soft, bowel sounds present, nontender, no distention. CENTRAL NERVOUS SYSTEM: No facial droop. Speech is clear. Obeys simple co mmands. Moves extremities. EXTREMITIES: No edema, no erythema seen. Left hip spica Marcus bandage noted. Results & Data Results & Data Vital Signs (Past 12 Hours) Vital Signs Temp Pulse Pulse Resp BP Pulse Ox O2 Del Method 07/20/23 11:19 36.7 C 64 18 106/67 98 Room Air 07/20/23 07:45 36.3 C L 60 18 138/66 94 Room Air 07/20/23 07:35 Room Air 07/20/23 07:12 65 07/20/23 03:53 36.8 C 70 20 101/64 95 Room Air (2) CAD (coronary artery disease) Coronary Disease-Associated Artery/Lesion type: [place] artery [place] vs. transplanted heart: [place] heart Associated angina: without angina Qualified Code(s): I25.10 - Atherosclerotic heart disease of [place] coronary artery without angina pectoris
[2023-07-21 06:39] LABS: Hematocrit (blood only) 32.1 % (37.0-47.0); Hemoglobin 10.5 g/dl (12.0-16.0); Mean Corpuscular Hemoglobin 28.5 pg (25.0-34.0); Mean Corpuscular Hgb Conc 32.7 g/dL (32.0-36.0); Mean Corpuscular Volume 87.2 fL (80.0-100.0); Mean Platelet Volume 10.6 fL (9.4-12.4); Platelet Count 265 K/uL (130-400); RDW Coefficient of Variation 16.8 % (11.5-14.5); RDW Standard Deviation 51.7 fL (36.4-46.3); Red Blood Count 3.68 M/uL (4.20-5.40); White Blood Count 8.16 K/ul (4.8-10.8)
[2023-07-21 07:06] LABS: INR 3.3 (0.9-1.1); Prothrombin Time 31.9 Seconds (9.0-12.0)
--- NOTE | 2023-07-21 14:23 | Pharmacy Report ---
Pharmacy Glycemic Short Note 2 - Date of Service July 21, 2023 - Glycemic Short BSG Results (Last 24 hours): 07/20/23 07/20/23 07/21/23 16:37 20:31 08:05 POC Glucose 137 H 134 H 152 H 07/21/23 12:16 POC Glucose 110 H OUTPATIENT ANTIDIABETIC REGIMEN: * Tresiba 26 units SQ Daily * Jardiance 25mg PO Daily * A1c 8.5% 07/14/23 ASSESSMENT: 07/20 * Pt's BSGs have been well-controlled on ~30 units of insulin per day for the past several days. * No changes to insulin regimen indicated at this time. 07/16 * Patient received total of 30 units of insulin yesterday, of which 15 units were basal insulin * Fasting BSG was 129 mg/dL, well controlled BSGs * Continue current regimen 07/14 * 77 yo F, admitted s/p mechanical fall + hematoma, blood sugars well controlled, received 15 units basal and 15 units bolus insulin yesterday. * Continue to titrate doses as needed. PLAN FOR INPATIENT GLYCEMIC CONTROL: * Hold outpatient oral diabetes medications * Basal insulin * Lantus 15 units SQ daily * Bolus insulin * NovoLog per scale ACHS or Q6hrs while NPO * Goal Range: Low 120 mg/dL - High 150 mg/dL * Correction Factor: 30 mg/dL/unit * Nutritional / Prandial insulin per carb ratio of 1 unit per 10 grams CHO consumed
--- NOTE | 2023-07-21 17:47 | Hospitalist Progress Note ---
Date of Service July 21, 2023 Assessment & Plan (1) Thigh hematoma: (2) CAD (coronary artery disease): (3) S/P AVR (aortic valve replacement): (4) S/P MVR (mitral valve replacement): (5) Subtherapeutic anticoagulation: (6) Atrial fibrillation: (7) Pacemaker: (8) Diabetes mellitus, new onset: Plan 77 year old female that presents to the ED s/p mechanical fall with L mid-thigh hematoma development. History of AVR/MVR and on Coumadin for anticoagulation; INR goal 2.5-3.5. At presentation - No leukocytosis, INR 1.6 which is subtherapeutic given her AVR/MVR. She is being managed for the following: Thigh hematoma: Left upper thigh, s/p mechanical fall Admitting Femur X-ray, C Sp CT and head CT negative Admitting imaging s/o left thigh hematoma Outlined hematoma with marker at presentation. Admitting INR 1.6 ISO AVR/MVR status. Subtherapeutic level. No signs of infection at the hematoma site. 07/16 evening, Pt had increased pain at hematoma site --> imaging Lt Hip CT and CTAP done --> no retroperitoneal hematoma/slight increase in left lat gluteal hematoma noted. Ortho evaled 07/18, Hip spica marcus bandage applied x leave for 2-3 days, then can take out. Cardio evaled, c/w anticoagulation Hemoglobin has been stable, monitor closely. Anticoagulation so far: s/p heparin bridge, Coumadin 3 mg on 07/14, 07/15 --> 5 mg on 07/16 --> c/w 3 mg daily from 07/17 INR 3.3 today, labs in AM. inr goal 2.5 to 3.5; check inr in am to make sure it is not trending up always for any adjustment in warfarin. if inr stable, likely dc fernando. CAD: S/P AVR/MVR: subtherapeutic anticoagulation: Pacemaker s/p TBS: Complex cardiac history that includes a mechanical AVR in 2002 which was red[place] [address] Manley. CABG x3 with Jorge to the LAD, R internal mammary artery anastomosed as a free graft to the RCA and a single saphenous vein graft to the diagonal coronary artery. Presentation INR 1.6. INR goal 2.5-3.5 cardiology evaled, appreciate recs. Anticoagulation - see above. Closely monitor PT/INR and H&H. Atrial Fibrillation: Chronic. Underwent an ablation at [facility]. Takes Coumadin as listed above--> placed on Heparin gtt given history as outlined above. INR goal 2.5-3.5 Takes Digoxin and Metoprolol;continue Insulin dependent diabetes mellitus, Type 2: Chronic Takes degludec; continue ACHS SSI while inpatient f/u with diabetic clinic for continued management HLD: Chronic. Takes Rosuvastatin; continue Depression: Chronic. Takes Sertraline; continue Disposition: PCP: Dr. Garcia Code Status: Full Code VTE Prophylaxis: Heparin gtt, coumadin resumed 07/14. Pt's son Orlando and POA: [phone]. likely dc fernando Please note the above document was generated using voice recognition software. It may contain grammatical, syntax or spelling errors. Any formal questions or concerns about the content, text or information contained within the body of this dictation should be directly addressed to the undersigned for clarification. Admission and Anticipated Discharge Date Admission Date: July 13, 2023 Subjective Patient was seen and examined at bedside. Patient was lying in bed, on room air, NAD, resting comfortably. Hip spica Marcus bandage noted over left hip area. Patient reports feeling better, pain under control. Patient reports eating okay and moving bowels okay, offers no further complaints. Updated pt's son orlando over the phone at bedside, possible dc to home fern[place]. Physical Exam Physical Exam: GENERAL: Alert and oriented x3. NAD, on RA. HEENT: No pallor, no icterus. Pupils equal, round and reactive to light. Oral mucosa moist. NECK: No JVD, no neck masses. HEART: S1 and S2 heard. irregular rate and rhythm. No murmur, no gallop. RESPIRATORY SYSTEM: Normal AP diameter. No accessory muscle use. No wheezing, no crackles. ABDOMEN: Soft, bowel sounds present, nontender, no distention. CENTRAL NERVOUS SYSTEM: No facial droop. Speech is clear. Obeys simple commands. Moves extremities. EXTREMITIES: No edema, no erythema seen. Left hip spica Marcus bandage noted. Results & Data Results & Data Vital Signs (Past 12 Hours) Vital Signs Temp Pulse Pulse Resp BP Pulse Ox O2 Del Method 07/21/23 15:42 69 07/21/23 15:25 64 07/21/23 15:09 37.1 C 106 H 18 99/62 L 95 Room Air 07/21/23 08:56 Room Air 07/21/23 07:45 36.6 C 84 18 118/71 97 Room Air 07/21/23 07:22 80 (2) CAD (coronary artery disease) Coronary Disease-Associated Artery/Lesion type: [place] artery [place] vs. transplanted heart: [place] heart Associated angina: without angina Qualified Code(s): I25.10 - Atherosclerotic heart disease of [place] coronary artery without angina pectoris
[2023-07-22 07:42] LABS: Hematocrit (blood only) 33.7 % (37.0-47.0); Mean Corpuscular Hemoglobin 28.8 pg (25.0-34.0); Mean Corpuscular Hgb Conc 32.6 g/dL (32.0-36.0); Mean Corpuscular Volume 88.2 fL (80.0-100.0); Platelet Count 300 K/uL (130-400); RDW Coefficient of Variation 17.2 % (11.5-14.5); RDW Standard Deviation 53.8 fL (36.4-46.3); Red Blood Count 3.82 M/uL (4.20-5.40); White Blood Count 7.98 K/ul (4.8-10.8)
[2023-07-22 08:03] LABS: INR 3.1 (0.9-1.1); Prothrombin Time 30.1 Seconds (9.0-12.0)
--- NOTE | 2023-07-22 10:33 | Hospitalist Progress Note ---
Date of Service July 22, 2023 Assessment & Plan (1) Thigh hematoma: (2) CAD (coronary artery disease): (3) S/P AVR (aortic valve replacement): (4) S/P MVR (mitral valve replacement): (5) Subtherapeutic anticoagulation: (6) Atrial fibrillation: (7) Pacemaker: (8) Diabetes mellitus, new onset: Plan 77 year old female that presents to the ED s/p mechanical fall with L mid-thigh hematoma development. History of AVR/MVR and on Coumadin for anticoagulation; INR goal 2.5-3.5. At presentation - No leukocytosis, INR 1.6 which is subtherapeutic given her AVR/MVR. She is being managed for the following: Thigh hematoma: Left upper thigh, s/p mechanical fall Admitting Femur X-ray, C Sp CT and head CT negative Admitting imaging s/o left thigh hematoma Outlined hematoma with marker at presentation-resolved subsequently. Admitting INR 1.6 ISO AVR/MVR status. Subtherapeutic level. No signs of infection at the hematoma site. 07/16 evening, Pt had increased pain at hematoma site --> imaging Lt Hip CT and CTAP done --> no retroperitoneal hematoma/slight increase in left lat gluteal hematoma noted. Ortho evaled 07/18, Hip spica ne bandage applied x leave for 2-3 days, then can take out. Cardio evaled, c/w anticoagulation Hemoglobin has been stable, monitor closely. No more pain in the left thigh and she has been ambulating without any difficulties Her hemoglobin remained stable at 11.0 on 07/22/23 Anticoagulation so far: s/p heparin bridge, Coumadin 3 mg on 07/14, 07/15 --> 5 mg on 07/16 --> c/w 3 mg daily from 07/17 INR 3.3 today, labs in AM. inr goal 2.5 to 3.5; check inr in am to make sure it is not trending up always for any adjustment in warfarin. if inr stable, likely dc fernando. INR is 3.1 as of 07/22/2023. Should be discharged home this afternoon and she has an follow-up appointment with the Coumadin clinic on . CAD: S/P AVR/MVR: subtherapeutic anticoagulation: Pacemaker s/p TBS: Complex cardiac history that includes a mechanical AVR in 2002 which was red[place] [address] Manley. CABG x3 with Jorge to the LAD, R internal mammary artery anastomosed as a free graft to the RCA and a single saphenous vein graft to the diagonal coronary ar mer. Cardiology evaled, appreciate recs. Anticoagulation - see above. Closely monitor PT/INR and H&H.-As above Atrial Fibrillation: Chronic. Underwent an ablation at [facility]. Takes Coumadin as listed above--> placed on Heparin gtt given history as outlined above. Takes Digoxin and Metoprolol;continue Heart rate is controlled at 62 and the blood pressure is stable Insulin dependent diabetes mellitus, Type 2: Chronic Takes degludec; continue ACHS SSI while inpatient f/u with diabetic clinic for continued management Will continue with her outpatient regimen HLD: Chronic. Takes Rosuvastatin; continue Depression: Chronic. Takes Sertraline; continue Disposition: PCP: Dr. Gracia Code Status: Full Code VTE Prophylaxis: Heparin gtt, coumadin resumed 07/14. Pt's son Vicente and POA: [phone]. Please note the above document was generated using voice recognition software. It may contain grammatical, syntax or spelling errors. Any formal questions or concerns about the content, text or information contained within the body of this dictation should be directly addressed to the undersigned for clarification. Admission and Anticipated Discharge Date Admission Date: July 13, 2023 Subjective 07/22/2023 The patient was seen and examined in medical telemetry unit She does not have any complaints of any pain in the left lateral thigh Has been ambulating in the room in the hallway without any difficulties She denies any other symptoms and wants to go home Review of Systems Review of Systems: All systems reviewed and are unremarkable except as noted below Physical Exam Physical Exam: Lying in bed with some discomfort in the left thigh due to pain Constitutional: well developed, well nourished and average body habitus; not ill appearing Eyes: PERRL, conjunctivae normal, anicteric sclerae ENMT: external ear and nose normal, oropharynx normal Neck: trachea midline, no thyromegaly Respiratory: no respiratory distress Auscultation: lungs clear to auscultation bilaterally Cardiovascular: Rate/Rhythm: + irregularly irregular; not tachycardic Heart Sounds: normal S1, normal S2 and + murmur Extremities: + edema (Trace edema bilaterally) Gastrointestinal (Abdomen): Inspection/Auscultation: normal bowel sounds; abdomen not distended Percussion/Palpation: abdomen soft; abdomen nontender Musculoskeletal: Extremities: + lower leg abnormality (Swelling of the left lateral upper thigh with localized bruising and tender) Neurologic: normal touch/pain/proprioception and moves all extremities; no focal motor deficits Lymphatic: no cervical or axillary lymphadenopathy Results & Data Results & Data Vital Signs (Past 12 Hours) Vital Signs Temp Pulse Pulse Resp BP BP Pulse Ox 07/22/23 07:30 62 07/22/23 07:21 63 14 122/60 98 07/22/23 04:16 36.5 C 64 20 153/73 H 96 07/22/23 00:13 37.1 C 61 20 106/50 L 98 07/21/23 22:35 71 O2 Del Method 07/22/23 07:30 07/22/23 07:21 Room Air 07/22/23 04:16 Room Air 07/22/23 00:13 Room Air 07/21/23 22:35 Laboratory Results Short CBC 07/22/23 Range/Units 07:07 WBC 7.98 (4.8-10.8) K/ul Hgb 11.0 L (12.0-16.0) g/dl Hct 33.7 L (37.0-47.0) % Plt Count 300 (130-400) K/uL Medications Administered Current Inpatient Medications Acetaminophen (Acetaminophen 325 Mg Tab) 650 mg PO Q4H PRN PRN Reason: Pain or Fever Stop: 08/12/23 18:03 Last Admin: 07/20/23 22:04 Dose: 650 mg Al Hydrox/Mg Hydrox/Simethicone (Aluminum/Magnesium Susp 30 Ml Udc) 15 ml PO Q4H PRN PRN Reason: Dyspepsia Stop: 08/12/23 18:03 Aspirin (Aspirin 81 Mg Ectab) 81 mg PO DAILY [facility] Stop: 08/13/23 08:59 Dextrose (Dextrose 50% 50 Ml Syringe) 25 - 50 ml IV UD PRN; Protocol PRN Reason: Hypoglycemia Protocol Stop: 08/12/23 22:43 Digoxin (Digoxin 0.125 Mg Tab) 0.125 mg PO DAILY@1600 [facility] Stop: 08/13/23 15:59 Last Admin: 07/21/23 15:42 Dose: 0.125 mg Fluticasone Propionate (Fluticasone Propionate Na Spr 16 Gm Btl) 1 sprays NA HS PRN PRN Reason: nasal allergies Stop: 08/12/23 22:41 Furosemide (Furosemide 20 Mg Tab) 20 mg PO Q48H ARACELI Stop: 08/14/23 08:59 Last Admin: 07/21/23 08:38 Dose: 20 mg Furosemide (Furosemide 40 Mg Tab) 40 mg PO Q48H ARACELI Stop: 08/13/23 08:59 Last Admin: 07/22/23 08:08 Dose: 40 mg Glucagon (Glucagon For Inj 1 Mg Vial) 1 mg SQ UD PRN; Protocol PRN Reason: Hypoglycemia Protocol Stop: 08/12/23 22:43 Glucose (Glucose 40% Gel 15 Gm Tube) 15 - 30 gm PO UD PRN; Protocol PRN Reason: Hypoglycemia Protocol Stop: 08/12/23 22:43 Glucose (Glucose 10 Tab/Tube) 4 - 8 tab PO UD PRN; Protocol PRN Reason: Hypoglycemia Treatment Stop: 08/12/23 22:43 Insulin Aspart (Insulin Aspart Per Unit Charge) 0 units SC ACHS [facility] Stop: 08/13/23 07:29 Last Admin: 07/22/23 09:13 Dose: 6 units Insulin Glargine (Lantus Per Unit Charge) 15 units SQ DAILY ARACELI Stop: 08/13/23 08:59 Last Admin: 07/22/23 09:13 Dose: 15 units Magnesium Hydroxide (Magnesium Hydroxide Susp 30 Ml Udc) 30 ml PO Q12H PRN PRN Reason: Constipation Stop: 08/12/23 18:03 Metoprolol Succinate (Metoprolol Succ 50mg Ext Rel Tab) 50 mg PO BID [facility] Stop: 08/13/23 20:59 Last Admin: 07/22/23 08:08 Dose: 50 mg Miscellaneous (Carbohydrates For Hypoglycemia ) 15 - 30 gm PO UD PRN PRN Reason: Hypoglycemia Protocol Stop: 08/12/23 22:43 Miscellaneous Information (Pharmacy Glycemic Mgmt Consult) 1 each N/A UD PRN PRN Reason: Consult Stop: 08/12/23 22:43 Nitroglycerin (Nitroglycerin Sl 0.4 Mg/Tab Tab) 0.4 mg SL Q5M PRN PRN Reason: Chest Pain Stop: 08/12/23 22:41 Ondansetron HCl (Ondansetron Inj 2 Mg/Ml 2 Ml Vial) 4 mg IV Q6H PRN PRN Reason: Nausea Stop: 08/12/23 18:03 Oxybutynin Chloride (Oxybutynin Chloride Xl 5 Mg Tabcr) 5 mg PO DAILY [facility] Stop: 08/13/23 08:59 Last Admin: 07/22/23 08:07 Dose: 5 mg Oxycodone HCl (Oxycodone Hcl Ir 5 Mg Tab (Immediate Release)) 5 mg PO Q6H PRN PRN Reason: Pain Stop: 07/27/23 19:59 Last Admin: 07/21/23 22:39 Dose: 5 mg Polyethylene Glycol (Polyethylene (Miralax) 17 Gm Pack) 17 gm PO DAILY PRN PRN Reason: Constipation Stop: 08/12/23 18:03 Rosuvastatin Calcium (Rosuvastatin Calcium 5 Mg Tab) 5 mg PO DAILY [facility] Stop: 08/13/23 08:59 Last Admin: 07/22/23 08:08 Dose: 5 mg Sertraline HCl (Sertraline Hcl 50 Mg Tablet) 50 mg PO QAM [facility] Stop: 08/13/23 08:59 Last Admin: 07/22/23 08:07 Dose: 50 mg Vitamin D (Cholecalciferol 25 Mcg (1000 Units) Tab) 50 mcg PO QAM [facility] Stop: 08/13/23 08:59 Last Admin: 07/22/23 08:08 Dose: 50 mcg Warfarin Sodium (Warfarin Sod 3 Mg Tab) 3 mg PO DAILY@1600 [facility] Stop: 08/17/23 15:59 Last Admin: 07/21/23 15:42 Dose: 3 mg (2) CAD (coronary artery disease) Coronary Disease-Associated Artery/Lesion type: [place] artery [place] vs. transplanted heart: [place] heart Associated angina: without angina Qualified Code(s): I25.10 - Atherosclerotic heart disease of [place] coronary artery without angina pectoris
--- NOTE | 2023-07-23 08:51 | Discharge Summary ---
Date of Service July 23, 2023 Admission HPI Per Admitting Provider Ms. Diana is a 77 year old female that presents to the ED s/p mechanical fall. She was sitting on her electric chair and her liberian caught on the edge of the chair and she fell. She also uses a walker to ambulate. History of AVR/MVR and on Coumadin for anticoagulation; INR goal 2.5-3.5. She was at the Coumadin clinic last [place] and has not had any recent changes to her Coumadin dosing. In the ED, no leukocytosis, INR 1.6 which is subtherapeutic given her AVR/MVR. Femur X-ray, CSCT and head CT negative. Chest CTA revealed cutaneous soft tissue contusion with hematoma is seen in the left upper thigh with foci of active extravasation. As mentioned, she does have a complex cardiac history that includes a mechanical AVR in 2002 which was red[place] [address] Manley. She also had a CABG x3 with Jorge to the LAD, R internal mammary artery anastomosed as a free graft to the RCA and a single saphenous vein graft to the diagonal coronary artery. She also underwent an ablation at [facility]. Pt denies CARDENAS, dizziness, SOB, chest pain, palpitations, abdominal pain or tenderness, other recent falls or trauma. On examination, patient is AAOx4 and able to answer all questions appropriately. Pt L mid-thigh lateral hematoma. Skin does not appear to present as rhabdo. Patient has positive sensation in LLE and no neuropathic symptoms. Patient will be admitted for further evaluation and management of her upper thigh hematoma. Given AVR/MVR will initiate Heparin gtt and consult Cardiology. Will provide pain control and also obtain and Ortho consult. Admission Exam Per Admitting Provider Physical Exam: Otherwise see Dr. Donato attestation for further details Musculoskeletal: 5/5 B/L UE strength, 5/5 B/L LE strength. No gait disturbance Skin: (-) rashes , (-) erythema. (+) ecchymosis lateral L thigh Psych: euthymic mood Principal Diagnosis Left thigh hematoma status post fall, status post AVR/MVR on anticoagulation Discharge Exam Lying in bed with some discomfort in the left thigh due to pain Constitutional well developed, well nourished and average body habitus; not ill appearing Eyes PERRL, conjunctivae normal, anicteric sclerae ENMT external ear and nose normal, oropharynx normal Neck trachea midline, no thyromegaly Respiratory no respiratory distress Auscultation: lungs clear to auscultation bilaterally Cardiovascular Rate/Rhythm: + irregularly irregular; not tachycardic Heart Sounds: normal S1, normal S2 and + murmur Extremities: + edema (Trace edema bilaterally) Gastrointestinal (Abdomen) Inspection/Auscultation: normal bowel sounds; abdomen not distended Percussion/Palpation: abdomen soft; abdomen nontender Musculoskeletal Extremities: + lower leg abnormality (Swelling of the left lateral upper thigh with localized bruising and tender) Neurologic normal touch/pain/proprioception and moves all extremities; no focal motor deficits Lymphatic no cervical or axillary lymphadenopathy Discharge Data Allergies Allergy/AdvReac Type Severity Reaction Status Date / Time lidocaine Allergy Intermediate Rash/hives Verified 03/30/23 10:11 [From Aspercreme (lidocaine)] with cream Sulfa (Sulfonamide Allergy Intermediate Rash, hives Verified 03/30/23 10:11 Antibiotics) latex Allergy Unknown Wheezing Verified 03/30/23 10:11 levothyroxine AdvReac Intermediate Tachycardia Verified 03/30/23 10:11 Consultations 07/13/23 17:40 ED Decision to Admit Stat 07/13/23 18:06 Consult Orthopedic Surgery Routine 07/13/23 22:00 Consult Cardiology Routine Ordered Studies 07/13/23 15:09 CT abd pelvis IV con only Stat CT cervical spine wo con Stat CT chest diagnostic w con Stat CT head/brain wo con Stat 07/18/23 02:12 CT Abd and Pelvis [CT abd pelvis wo con] Stat CT femur LT wo con Stat Hospital Course (1) Thigh hematoma: (2) CAD (coronary artery disease): (3) S/P AVR (aortic valve replacement): (4) S/P MVR (mitral valve replacement): (5) Subtherapeutic anticoagulation: (6) Atrial fibrillation: (7) Pacemaker: (8) Diabetes mellitus, new onset: Plan 77 year old female that presents to the ED s/p mechanical fall with L mid-thigh hematoma development. History of AVR/MVR and on Coumadin for anticoagulation; INR goal 2.5-3.5. At presentation - No leukocytosis, INR 1.6 which is subtherapeutic given her AVR/MVR. She is being managed for the following: Thigh hematoma: Left upper thigh, s/p mechanical fall Admitting Femur X-ray, C Sp CT and head CT negative Admitting imaging s/o left thigh hematoma Outlined hematoma with marker at presentation-resolved subsequently. Admitting INR 1.6 ISO AVR/MVR status. Subtherapeutic level. No signs of infection at the hematoma site. 07/16 evening, Pt had increased pain at hematoma site --> imaging Lt Hip CT and CTAP done --> no retroperitoneal hematoma/slight increase in left lat gluteal hematoma noted. Ortho evaled 07/18, Hip spica ne bandage applied x leave for 2-3 days, then can take out. Cardio evaled, c/w anticoagulation Hemoglobin has been stable, monitor closely. No more pain in the left thigh and she has been ambulating without any difficulties Her hemoglobin remained stable at 11.0 on 07/22/23 Anticoagulation so far: s/p heparin bridge, Coumadin 3 mg on 07/14, 07/15 --> 5 mg on 07/16 --> c/w 3 mg daily from 07/17 INR 3.3 today, labs in AM. inr goal 2.5 to 3.5; check inr in am to make sure it is not trending up always for any adjustment in warfarin. if inr stable, likely dc fernando. INR is 3.1 as of 07/22/2023. Should be discharged home this afternoon and she has an follow-up appointment with the Coumadin clinic on . CAD: S/P AVR/MVR: subtherapeutic anticoagulation: Pacemaker s/p TBS: Complex cardiac history that includes a mechanical AVR in 2002 which was red[place] [address] Manley. CABG x3 with Jorge to the LAD, R internal mammary artery anastomosed as a free graft to the RCA and a single saphenous vein graft to the diagonal coronary artery. Cardiology evaled, appreciate recs. Anticoagulation - see above. Closely monitor PT/INR and H&H.-As above Atrial Fibrillation: Chronic. Underwent an ablation at [facility]. Takes Coumadin as listed above--> placed on Heparin gtt given history as outlined above. Takes Digoxin and Metoprolol;continue Heart rate is controlled at 62 and the blood pressure is stable Insulin dependent diabetes mellitus, Type 2: Chronic Takes degludec; continue ACHS SSI while inpatient f/u with diabetic clinic for continued management Will continue with her outpatient regimen HLD: Chronic. Takes Rosuvastatin; continue Depression: Chronic. Takes Sertraline; continue Disposition: PCP: Dr. Garcia Code Status: Full Code VTE Prophylaxis: Heparin gtt, coumadin resumed 07/14. Pt's son Vicente and POA: [phone]. Please note the above document was generated using voice recognition software. It may contain grammatical, syntax or spelling errors. Any formal questions or concerns about the content, text or information contained within the body of this dictation should be directly addressed to the undersigned for clarification. Total Time Total Time Spent Total Time Spent (In Minutes): 35 MINUTES Discharge Plan Discharge Items Patient Disposition: Home - Home Health Services Reason For Visit: S/P MECHANICAL FALL Discharge Diagnosis: Left thigh hematoma status post fall, status post AVR/MVR on anticoagulation Condition on Discharge: Good Activity: Resume your previous activity Non-emergency contact: Primary Care Provider Call non-emergency contact if: you have any medication questions and your symptoms worsen Follow-up/Referrals: Desi Garcia MD [Outside Practitioners] - (Date & Time 07/23/2023 2:00 PM Provider Desi Garcia MD Department [facility] ) Diet: Carb Consistent or DM2 and Heart Healthy Diet Texture: Easy to Chew Addtl Attending Provider Instructions: Please take precautions to avoid falls Take your medications as advised Please have follow-up appointments with healthcare providers Have regular follow-up with coagulation clinic to check your INR and adjust Coumadin dose accordingly Pending Studies at Discharge: No Stand-Alone Forms: My [facility] [email or web address], Smoking Cessation Medications and DC Order Prescriptions: Continued Jardiance 25 mg tablet 25 mg PO QAM (DME) blood-glucose meter [OneTouch Verio Flex meter] Misc See Rx Instructions .Route Rx Instructions: As directed (DME) pen needle, diabetic [Comfort EZ Pen [place]] 32 gauge x 1/4" needle See Rx Instructions .Route Qty: 100 3RF Rx Instructions: As directed daily for insulin administration insulin degludec [Tresiba FlexTouch U-100] 100 unit/mL (3 mL) insulin pen 26 unit subcut DAILY nitroglycerin [Nitrostat] 0.4 mg Tablet, Sublingual 0.4 mg sublingual DIRECTED PRN (Reason: Chest Pain) Rx Instructions: PLACE ONE TABLET UNDER THE TONGUE EVERY 5 MINUTES FOR UP TO 3 DOSES OVER 15 MINUTES IF NEEDED FOR CHEST PAIN furosemide 20 mg Tablet 20 mg PO UD Rx Instructions: TAKE BY MOUTH ONE TABLET (20 MG) EVERY OTHER DAY ALTERNATING WITH TWO TABLETS (40 MG) EVERY OTHER DAY sertraline 50 mg tablet 50 mg PO QAM cholecalciferol (vitamin D3) [Vitamin D3] 25 mcg (1,000 unit) Tablet 50 mcg PO QAM digoxin 125 mcg (0.125 mg) Tablet 125 mcg PO QAM fluticasone propionate 50 mcg/actuation spray,suspension 1 spray INTRANASAL HS PRN (Reason: otjer) Rx Instructions: use in each nostril warfarin 1 mg tablet 2 - 3 mg PO DAILY Rx Instructions: 2mg on Mondays, 3mg all other days rosuvastatin 5 mg Tablet 5 mg PO DAILY aspirin 81 mg Tablet,Delayed Release (Dr/Ec) 81 mg PO DAILY amoxicillin 500 mg capsule 2,000 mg PO ONCE PRN (Reason: Prophylaxis) Rx Instructions: take 4 capsules 1 hour prior to procedures dicyclomine 10 mg capsule 20 mg PO QID PRN (Reason: Abdominal Pain) Rx Instructions: 20 mg metoprolol succinate 50 mg Tablet Extended Release 24 Hr 50 mg PO BID potassium chloride 10 mEq Tablet Extended Release 10 meq PO DAILY Discharge Orders: Discharge Order (Routine); Ordered 07/22/23 Ordered By: Patti Disla/Other Patient Handouts: Managing Type 2 Diabetes Admission Data Admit Date/Time: 07/13/23 18:04 Attending Provider: Patti Marks Admit Provider: Sinai Donato Primary Care Provider: Brigitte Garcia Other Providers: Mark Salinas; Dillon Almeida; Sinai Donato; [facility]; Gely Watson Other Interventions: Discharge Summary Assessment (RN) Last Done: 07/22/23 13:54
== END 2023-07-22 14:23 | disposition home health service (06) | DRG 813 ==
LOC: ED 14:43 → SUATTDRO 18:04 → EDINP 18:04 → 2N 21:28